=== PATIENT | male | born 1955 | race Caucasian/White ===

== ENCOUNTER → 2020-09-11 11:40 | Outpatient (BNVA) | payer MEDICARE, SELFPAY | PROVIDERS: PCP Internal Medicine; Referring Provider Internal Medicine; Visit Provider Nurse Practitioner Family | DX: I50.810 Right heart failure, unspecified (principal); I50.30 Unspecified diastolic (congestive) heart failure; I11.0 Hypertensive heart disease with heart failure; I63.9 Cerebral infarction, unspecified; E66.01 Morbid (severe) obesity due to excess calories; N17.9 Acute kidney failure, unspecified; G47.33 Obstructive sleep apnea (adult) (pediatric) | CPT/HCPCS: Q3014 ==

== ENCOUNTER 2020-11-17 23:42 | Inpatient (IN) | payer MEDICARE, SELFPAY ==
--- NOTE | ~2020-11-17 | CT_ITS ---
EXAMINATION: CT ABDOMEN AND PELVIS WITHOUT CONTRAST CLINICAL INFORMATION: Left flank pain. COMPARISON: None. TECHNIQUE: Contiguous axial thin section helical images of the abdomen and pelvis were performed without oral or IV contrast. The data set was reformatted in the coronal and sagittal planes and reviewed on an independent workstation. DLP: 1687 mGy-cm. FINDINGS: The visualized lung bases are clear. The visualized portions of the heart are unremarkable. The liver is of normal size and attenuation without focal lesions nor intrahepatic biliary ductal dilation. A normal gallbladder is identified. There is no wall thickening or discernible pericholecystic fluid. The spleen, pancreas, adrenal glands are unremarkable. Both kidneys are of normal size and attenuation without nephrolithiasis. There is left grade 1-2 hydroureteronephrosis secondary to a 5 mm obstructive proximal left ureteral calculus. There is left perinephric stranding. There is no abdominal free fluid. There is neither mesenteric nor retroperitoneal lymphadenopathy. There is mild sigmoid diverticulosis without active diverticulitis; otherwise, unremarkable unopacified loops of small and large bowel are identified. There is no pelvic free fluid. The urinary bladder is unremarkable. There is neither pelvic nor inguinal lymphadenopathy. Bone windows: Neither sclerotic nor lytic bone lesions are identified. CT/CT abdomen pelvis wo con IMPRESSION: Left grade 1-2 hydroureteronephrosis secondary to an obstructive 5 mm proximal ureteral calculus. Automated exposure control (Care Dose) Adjustment of the mA and/or kv according to patient size (this includes techniques or standardized protocols for targeted exams where dose is matched to indication / reason for exam; i.e. extremities or head).
--- NOTE | ~2020-11-17 | XR_ITS ---
EXAMINATION: XR CHEST CLINICAL INFORMATION: Cough COMPARISON: Chest x-ray 04/21/2020 TECHNIQUE: Frontal portable view of the chest was obtained. 0015 hours FINDINGS: Asymmetric elevation of right diaphragm compared to left unchanged since prior study. No acute airspace opacities. There is no pulmonary vascular congestion, no pleural effusion or pneumothorax. The cardiac and mediastinal contours are unchanged. XR/XR chest 1V IMPRESSION: No acute abnormality of the chest.
[2020-11-17 23:49] VITALS: BP 119/118; BP 185/93; PULSE 85; PULSE 96; RESP 16; TEMP 36.6; O2SAT 94; O2SAT 95; BMI 58.0
--- NOTE | 2020-11-17 23:51 | ECG_ITS ---
Test Reason : DIZZINESS Blood Pressure : / mmHG Vent. Rate : 083 BPM Atrial Rate : 083 BPM P-R Int : 264 ms QRS Dur : 114 ms QT Int : 402 ms P-R-T Axes : 024 024 047 degrees QTc Int : 472 ms Sinus rhythm with 1st degree A-V block with occasional Premature ventricular complexes Otherwise normal ECG When compared with ECG of 27-APR-2020 03:25, Questionable change in QRS axis Nonspecific T wave abnormality, improved in Inferior leads Referred By: Fifi Shaw Electronically Signed By:Giacomo Campbell
[2020-11-18] VITALS (13 sets, daily range): BP systolic 127–184; BP diastolic 69–106; PULSE 56–97; RESP 14–24; TEMP 36.4–37.1; O2SAT 93–98
[2020-11-18 00:18] LABS: Basophils Absolute Auto 0.1 X10*3/uL (0.0-0.2); Basophils Percent Auto 0.5 % (0-2); Eosinophils Absolute Auto 0.4 X10*3/uL (0.0-0.4); Eosinophils Percent Auto 2.8 % (0-4); Hematocrit 37.5 % (42-52); Hemoglobin 11.9 g/dl (14.0-18.0); Imm Gran Pct Auto 0.7 % (0.0-0.4); Lymphocytes Absolute Auto 2.3 X10*3/uL (1.2-4.9); Lymphocytes Percent Auto 14.9 % (20-40); Mean Corpuscular HGB Conc 31.7 g/dl (31.0-36.0); Mean Corpuscular Hemoglobin 29.8 pg (27.0-33.0); Mean Corpuscular Volume 93.8 fL (80-98); Mean Platelet Volume 9.7 fL (9.4-12.4); Monocytes Percent Auto 6.3 % (2-11); Neutrophils Absolute Auto 11.5 X10*3/uL (2.0-8.3); Neutrophils Percent Auto 74.8 % (45-73); Platelet Count 278 X10*3/uL (160-400); White Blood Count 15.3 X10*3/uL (4.8-10.8)
[2020-11-18 00:19] LABS: MANUAL DIFF FLAG NO
[2020-11-18 00:33] LABS: Acetone, serum QL Negative (Negative)
[2020-11-18 00:39] LABS: Ethanol < 10 mg/dL
[2020-11-18 00:43] LABS: Alanine Aminotransferase 14 U/L (0-40); Albumin Level 3.8 g/dL (3.5-5.0); Alkaline Phosphatase 108 U/L (39-117); Anion Gap 14 (12-20); Aspartate Amino Transferase 18 U/L (5-37); Bilirubin Total 0.7 mg/dL (0.0-1.0); Blood Urea Nitrogen 28 mg/dL (9-16); Calcium 9.7 mg/dL (8.4-10.2); Carbon Dioxide 31 mmol/L (22-29); Chloride 97 mmol/L (96-108); Estimated Glomerular Filt Rate 37; Glucose Random 95 mg/dL (60-115); Lipase 43 U/L (8-78); Magnesium 2.3 mg/dL (1.6-2.6); Potassium 3.8 mmol/L (3.3-5.1); Sodium 138 mmol/L (135-145); Total Protein 7.4 g/dL (6.5-8.0)
[2020-11-18 00:49] LABS: Glucose Urine UA NEG (NEG); Leukocyte Esterase Urine NEG (NEG); Nitrite Urine NEG (NEG); PH 5.5 (5.0-8.0); Specific Gravity - Urine 1.025 (1.005-1.025); Urine Blood 2+ (NEG); Urine Ketones NEG (NEG); Urine Protein TRACE MG/DL (NEG-TRACE)
[2020-11-18 00:50] LABS: Appearance Urine CLEAR; Color Urine YELLOW
[2020-11-18 00:56] LABS: Mucus Urine 1+ /LPF; Squamous Epithelial Cell Urine 1+ /LPF; UACC CULT NO; WBC Urine 0-2 /HPF (0-4)
--- NOTE | 2020-11-18 01:14 | ED_ITS ---
HPI - General Adult General Chief complaint: Dizziness Stated complaint: HIGH BP,DIZZY W/STANDING X'S 2 DAYS,FLANK PAIN Time Seen by Provider: 11/17/20 23:50 Source: patient Mode of arrival: EMS History of Present Illness HPI narrative: This is a 65-year-old male who is brought in via EMS and states that he called EMS primarily due to onset left flank pain that was not associated with fevers, chills, nausea, vomiting, diarrhea, or urinary pain/burning/frequency. Patient states that he also was concerned about an isolated episode of dizziness that occurred on Wednesday with position change, but states he has had no further symptoms since that time. In addition, patient states he has noticed that his blood pressures been elevated and says that he has been off of blood pressure medication since May. Patient currently denies any new cough with sputum production, denies orthopnea, and denies any bilateral lower extremity swelling or increase in shortness of breath from his baseline. Related Data Home Medications Medication Instructions Recorded Confirmed lidocaine 5 % topical patch 1 patch TOPICAL DAILY 07/08/20 11/13/20 lisinopril 40 mg tablet 40 mg PO DAILY 07/08/20 11/18/20 metformin 500 mg tablet 500 mg PO BID tab 11/13/20 11/18/20 Previous Rx's Medication Instructions Recorded allopurinol 300 mg tablet 300 mg PO BID #30 tab 07/08/20 atorvastatin 80 mg tablet 80 mg PO DAILY #90 tab 07/08/20 furosemide 40 mg tablet 40 mg PO DAILY 30 Days #30 tab 07/08/20 polyethylene glycol 3350 17 gram 17 g PO DAILY 30 Days #30 ea 07/08/20 oral powder packet duloxetine 20 mg capsule,delayed 20 mg PO BID #60 cap 10/14/20 release hydrocodone 5 mg-acetaminophen 300 1 tab PO BID PRN 7 Days #14 tab 11/08/20 mg tablet magnesium 200 mg tablet 400 mg PO DAILY #60 tab 11/11/20 Allergies Allergy/AdvReac Type Severity Reaction Status Date / Time No Known Allergies Allergy Verified 11/13/20 07:07 Review of Systems Review of Systems: Pertinent positives and negatives as stated in HPI 10 point review of systems is otherwise negative. PMFSH Past Medical History Source: nursing notes reviewed Medical History Acute gout of left foot FOREST (acute kidney injury) Cerebrovascular accident (CVA) Chronic fatigue Diastolic heart failure HTN (hypertension) Hyperlipidemia Leg pain Morbid obesity Newly diagnosed diabetes LALI (obstructive sleep apnea) Pulmonary arterial hypertension Right heart failure Surgical History Hx of shoulder surgery No pertinent past surgical history Family History Family History Father Blood clot in vein Mother Cancer Social History Social History Household Members: Significant Other Smoking Status: Never smoker Years Smoked: nonsmoker Use of substances other than those prescribed or required for medical reasons: No Advance Directives: No Advance Directives Information Provided: No Physical Exam Vital Signs: Vital Signs: Last Vital Signs Temp 97.9 F 11/18/20 00:00 Pulse 96 11/18/20 00:24 Resp 17 11/18/20 00:00 BP 166/86 H 11/18/20 00:24 Pulse Ox 95 11/18/20 00:00 Body Mass Index 58.0 VITAL SIGNS: Reviewed. GENERAL: Well developed, well nourished, in no acute distress. HEAD: Normocephalic/atraumatic EYES: PERRLA, EOMI NOSE: Nares patent bilateral OROPHARYNX: no oral lesions noted, posterior pharynx clear NECK: Supple, no adenopathy LUNGS: Normal breath sounds. No adventitious sounds or accessory muscle use. SpO2<95> on 2 L of nasal cannula CARDIOVASCULAR: Regular rate and rhythm without noted murmurs, no JVD or lower extremity edema. ABDOMEN: Obese, Soft, non-tender, non-distended with bowel sounds. MUSCULOSKELETAL: No tenderness, deformities, or effusions noted on gross inspection. SKIN: Inspection of the skin reveals no rashes NEUROLOGIC: Alert and oriented x 4. Strength and sensation to light touch were grossly intact x 4, no facial asymmetry, no dysarthria, no pronator drift. Course Course Course Narrative: This is a 65-year-old male with history and clinical presentation consistent with miscommunication regarding blood pressure medication and on review notes and discharge summaries it is unclear what the decision making process has been between May of last year and present. On review of Nephrology and an entry by his PCP it is documented that patient is supposed to be on 40 mg of lisinopril. There is no clinical or historical evidence to suggest CHF exacerbation, but suspect the possibility of renal colic which was further corroborated by urinalysis showing hematuria. Review of all investigations shows a leukocytosis, hematuria, as well as CT findings demonstrating a 5 mm proximal obstructive stone on the left side with 1-2 grade hydronephrosis. Case was discussed with Urology who recommends admission and NPO. I discussed the case with inpatient hospitalist team who is agreeable for admission. Medical Decision Making Lab Data Result diagrams: 11/18/20 00:13 11/18/20 00:13 Labs: Lab Results 11/18/20 11/18/20 11/18/20 Range/Units 00:13 00:13 00:13 WBC 15.3 H (4.8-10.8) X10*3/uL RBC 4.00 L (4.60-5.80) X10*6/uL Hgb 11.9 L (14.0-18.0) g/dl Hct 37.5 L (42-52) % MCV 93.8 (80-98) fL MCH 29.8 (27.0-33.0) pg MCHC 31.7 (31.0-36.0) g/dl RDW 14.0 (11.0-16.0) % Plt Count 278 (160-400) X10*3/uL MPV 9.7 (9.4-12.4) fL Immature Gran % (Auto) 0.7 H (0.0-0.4) % Neut % (Auto) 74.8 H (45-73) % Lymph % (Auto) 14.9 L (20-40) % [place] % (Auto) 6.3 (2-11) % Eos % (Auto) 2.8 (0-4) % Baso % (Auto) 0.5 (0-2) % Lymph # (Auto) 2.3 (1.2-4.9) X10*3/uL [place] # (Auto) 1.0 (0.1-1.2) X10*3/uL Eos # (Auto) 0.4 (0.0-0.4) X10*3/uL Baso # (Auto) 0.1 (0.0-0.2) X10*3/uL Abs Immat Gran (auto) 0.10 H (0.00-0.03) X10*3/uL Absolute Neuts (auto) 11.5 H (2.0-8.3) X10*3/uL Absolute Nucleated RBC 0.000 (0.0-0.012) X10*3/uL Nucleated RBC % (auto) 0.0 (0.0-0.2) /100WBC Sodium 138 (135-145) mmol/L Potassium 3.8 (3.3-5.1) mmol/L Chloride 97 (96-108) mmol/L Carbon Dioxide 31 H (22-29) mmol/L Anion Gap 14 (12-20) BUN 28 H (9-16) mg/dL Creatinine 1.86 H (0.5-1.4) mg/dL Estim Creat Clear Calc 59.0 Estimated GFR 37 Random Glucose 95 (60-115) mg/dL Calcium 9.7 (8.4-10.2) mg/dL Magnesium 2.3 (1.6-2.6) mg/dL Total Bilirubin 0.7 (0.0-1.0) mg/dL AST 18 (5-37) U/L ALT 14 (0-40) U/L Alkaline Phosphatase 108 (39-117) U/L Total Protein 7.4 (6.5-8.0) g/dL Albumin 3.8 (3.5-5.0) g/dL Lipase 43 (8-78) U/L Urine Color Urine Appearance Urine pH (5.0-8.0) Ur Specific [place] (1.005-1.025) Urine Protein (NEG-TRACE) MG/DL Urine Glucose (UA) (NEG) MG/DL Urine Ketones (NEG) MG/DL Urine Blood (NEG) Urine Nitrite (NEG) Ur Leukocyte Esterase (NEG) Urine RBC (0) /HPF Urine WBC (0-4) /HPF Ur Squamous Epith Cells /LPF Urine Bacteria /LPF Urine Mucus /LPF Urine Opiates Screen (Not Detect) Ur Barbiturates Screen (Not Detect) Ur Phencyclidine Scrn (Not Detect) Ur Amphetamines Screen (Not Detect) U Benzodiazepines Scrn (Not Detect) Urine Cocaine Screen (Not Detect) U Marijuana (THC) Screen (Not Detect) Ethyl Alcohol mg/dL Acetone, Qual Negative (Negative) COVID-19 (DUNIA) (Negative) COVID-19 Clin Com 11/18/20 11/18/20 11/18/20 Range/Units 00:13 00:34 00:34 WBC (4.8-10.8) X10*3/uL RBC (4.60-5.80) X10*6/uL Hgb (14.0-18.0) g/dl Hct (42-52) % MCV (80-98) fL MCH (27.0-33.0) pg MCHC (31.0-36.0) g/dl RDW (11.0-16.0) % Plt Count (160-400) X10*3/uL MPV (9.4-12.4) fL Immature Gran % (Auto) (0.0-0.4) % Neut % (Auto) (45-73) % Lymph % (Auto) (20-40) % [place] % (Auto) (2-11) % Eos % (Auto) (0-4) % Baso % (Auto) (0-2) % Lymph # (Auto) (1.2-4.9) X10*3/uL [place] # (Auto) (0.1-1.2) X10*3/uL Eos # (Auto) (0.0-0.4) X10*3/uL Baso # (Auto) (0.0-0.2) X10*3/uL Abs Immat Gran (auto) (0.00-0.03) X10*3/uL Absolute Neuts (auto) (2.0-8.3) X10*3/uL Absolute Nucleated RBC (0.0-0.012) X10*3/uL Nucleated RBC % (auto) (0.0-0.2) /100WBC Sodium (135-145) mmol/L Potassium (3.3-5.1) mmol/L Chloride (96-108) mmol/L Carbon Dioxide (22-29) mmol/L Anion Gap (12-20) BUN (9-16) mg/dL Creatinine (0.5-1.4) mg/dL Estim Creat Clear Calc Estimated GFR Random Glucose (60-115) mg/dL Calcium (8.4-10.2) mg/dL Magnesium (1.6-2.6) mg/dL Total Bilirubin (0.0-1.0) mg/dL AST (5-37) U/L ALT (0-40) U/L Alkaline Phosphatase (39-117) U/L Total Protein (6.5-8.0) g/dL Albumin (3.5-5.0) g/dL Lipase (8-78) U/L Urine Color YELLOW Urine Appearance CLEAR Urine pH 5.5 (5.0-8.0) Ur Specific [place] 1.025 (1.005-1.025) Urine Protein TRACE (NEG-TRACE) MG/DL Urine Glucose (UA) NEG (NEG) MG/DL Urine Ketones NEG (NEG) MG/DL Urine Blood 2+ H (NEG) Urine Nitrite NEG (NEG) Ur Leukocyte Esterase NEG (NEG) Urine RBC 10-14 H (0) /HPF Urine WBC 0-2 (0-4) /HPF Ur Squamous Epith Cells 1+ /LPF Urine Bacteria NONE /LPF Urine Mucus 1+ /LPF Urine Opiates Screen Not Detected (Not Detect) Ur Barbiturates Screen Not Detected (Not Detect) Ur Phencyclidine Scrn Not Detected (Not Detect) Ur Amphetamines Screen Not Detected (Not Detect) U Benzodiazepines Scrn Not Detected (Not Detect) Urine Cocaine Screen Not Detected (Not Detect) U Marijuana (THC) Screen Not Detected (Not Detect) Ethyl Alcohol < 10 mg/dL Acetone, Qual (Negative) COVID-19 (DUNIA) (Negative) COVID-19 Clin Com 11/18/20 Range/Units 03:46 WBC (4.8-10.8) X10*3/uL RBC (4.60-5.80) X10*6/uL Hgb (14.0-18.0) g/dl Hct (42-52) % MCV (80-98) fL MCH (27.0-33.0) pg MCHC (31.0-36.0) g/dl RDW (11.0-16.0) % Plt Count (160-400) X10*3/uL MPV (9.4-12.4) fL Immature Gran % (Auto) (0.0-0.4) % Neut % (Auto) (45-73) % Lymph % (Auto) (20-40) % [place] % (Auto) (2-11) % Eos % (Auto) (0-4) % Baso % (Auto) (0-2) % Lymph # (Auto) (1.2-4.9) X10*3/uL [place] # (Auto) (0.1-1.2) X10*3/uL Eos # (Auto) (0.0-0.4) X10*3/uL Baso # (Auto) (0.0-0.2) X10*3/uL Abs Immat Gran (auto) (0.00-0.03) X10*3/uL Absolute Neuts (auto) (2.0-8.3) X10*3/uL Absolute Nucleated RBC (0.0-0.012) X10*3/uL Nucleated RBC % (auto) (0.0-0.2) /100WBC Sodium (135-145) mmol/L Potassium (3.3-5.1) mmol/L Chloride (96-108) mmol/L Carbon Dioxide (22-29) mmol/L Anion Gap (12-20) BUN (9-16) mg/dL Creatinine (0.5-1.4) mg/dL Estim Creat Clear Calc Estimated GFR Random Glucose (60-115) mg/dL Calcium (8.4-10.2) mg/dL Magnesium (1.6-2.6) mg/dL Total Bilirubin (0.0-1.0) mg/dL AST (5-37) U/L ALT (0-40) U/L Alkaline Phosphatase (39-117) U/L Total Protein (6.5-8.0) g/dL Albumin (3.5-5.0) g/dL Lipase (8-78) U/L Urine Color Urine Appearance Urine pH (5.0-8.0) Ur Specific [place] (1.005-1.025) Urine Protein (NEG-TRACE) MG/DL Urine Glucose (UA) (NEG) MG/DL Urine Ketones (NEG) MG/DL Urine Blood (NEG) Urine Nitrite (NEG) Ur Leukocyte Esterase (NEG) Urine RBC (0) /HPF Urine WBC (0-4) /HPF Ur Squamous Epith Cells /LPF Urine Bacteria /LPF Urine Mucus /LPF Urine Opiates Screen (Not Detect) Ur Barbiturates Screen (Not Detect) Ur Phencyclidine Scrn (Not Detect) Ur Amphetamines Screen (Not Detect) U Benzodiazepines Scrn (Not Detect) Urine Cocaine Screen (Not Detect) U Marijuana (THC) Screen (Not Detect) Ethyl Alcohol mg/dL Acetone, Qual (Negative) COVID-19 (DUNIA) Negative (Negative) COVID-19 Clin Com See Note ECG Data Attestation: I personally reviewed and interpreted this ECG as follows: Prior ECG tracings: available for review (04/27/2020 no acute changes on comparison) Interpretation: Sinus rhythm, first-degree AV block (chronic), no evidence of ac [place]land ischemia, occasional PVCs, CO-to 64, QRS-114, QTC-472 Discharge Plan Discharge Clinical Impression: Obstructive uropathy Patient Disposition: Admitted as Observation
[2020-11-18 01:16] LABS: Amphetamine Screen Urine Not Detected (Not Detect); Barbiturates, Urine Not Detected (Not Detect); Benzodiazepines Screen Urine Not Detected (Not Detect); Cannabinoid Screen Urine Not Detected (Not Detect); Cocaine Screen Urine Not Detected (Not Detect); Opiate Screen Urine Not Detected (Not Detect); Phencyclidine Screen Urine Not Detected (Not Detect)
[2020-11-18] MEDS: cefTRIAXone sodium 1 GM in 0.9 % Sodium Chloride 50 ML IV (03:50)
[2020-11-18 04:08] LABS: COVID-19 Test Negative (Negative)
[2020-11-18 04:12] LABS: Lactic Acid 2.3 mmol/L (0.5-2.0)
--- NOTE | 2020-11-18 05:34 | P.HPHOSP_ITS ---
History of Present Illness Date of Service: 11/18/20 Chief Complaint: Abdominal pain This is a 65-year-old male with past medical history of gout, hypertension, HLD, diabetes, LALI, pulmonary arterial hypertension, right heart failure who presents to the hospital with complaints of left flank pain that started 2 days ago. Pain is 8/10, sharp, radiating to the grain. Patient denies any fever or chills, no nausea vomiting diarrhea constipation. No urinary symptoms including no frequency urgency or dysuria. He has no retention. He has many lower extremity edema. No headache or change in vision, no chest pain shortness of breath. Patient reports that he also has been having high blood pressure readings be cause he has not been compliant with his blood pressure medications. On arrival to the ED hemodynamically stable with a blood pressure of 185/93 otherwise normal vitals Labs are significant for WBC count of 15.3, hemoglobin of 11.9, sodium of 138, BUN of 28, creatinine of 1.86 (most recent creatinine have been in the 2s), lactic acid of 2.3, UA negative for leukocyte esterase or nitrates, COVID-[address] reveals left grade 1-2 hydroureteronephrosis secondary to an obstructing 5 mm proximal ureteral calculus Patient will be admitted with a consult to Urology Review of Systems Review of Systems: Yes all other systems are reviewed and are negative [facility] Medical History Acute gout of left foot FOREST (acute kidney injury) Cerebrovascular accident (CVA) Chronic fatigue Diastolic heart failure HTN (hypertension) Hyperlipidemia Leg pain Morbid obesity Newly diagnosed diabetes LALI (obstructive sleep apnea) Pulmonary arterial hypertension Right heart failure Family History Father Blood clot in vein Mother Cancer Surgical History Hx of shoulder surgery No pertinent past surgical history Social History Household Members: Significant Other Smoking Status: Never smoker Years Smoked: nonsmoker Use of substances other than those prescribed or required for medical reasons: No Advance Directives: No Advance Directives Information Provided: No Meds Allergies Allergy/AdvReac Type Severity Reaction Status Date / Time No Known Allergies Allergy Verified 11/13/20 07:07 Home Medications Medication Instructions Recorded Confirmed Last Taken Type lidocaine 5 % topical patch 1 patch TOPICAL DAILY 07/08/20 11/13/20 Unknown History lisinopril 40 mg tablet 40 mg PO DAILY 07/08/20 11/18/20 Unknown History metformin 500 mg tablet 500 mg PO BID tab 11/13/20 11/18/20 Unknown History Physical Exam Vital Signs and Narrative: Vital Signs: Last Vital Signs Temp 97.9 F 11/18/20 00:00 Pulse 73 11/18/20 04:00 Resp 19 11/18/20 04:00 BP 132/73 11/18/20 04:00 Pulse Ox 95 11/18/20 04:00 Body Mass Index 58.0 Const: General: cooperative and no acute distress Orientation/consciousness: patient oriented x3 Eyes: General: appearance normal, both eyes and all related structures Resp: Effort & Inspection: normal respiratory effort and able to speak in complete sentences Cardio: Rate: regular rate Rhythm: regular rhythm GI: Palpation (GI): Soft to palpation Auscultation: normal bowel sounds Skin: General skin exam: no rashes or lesions noted Neuro: General: patient oriented x3 Cognition (Neuro): normal cognition Extrem: General: Yes normal to inspection and Yes no pedal edema Results Labs CBC and Chem 7: 11/18/20 00:13 11/18/20 00:13 Labs: Laboratory Results - last 24 hr 11/18/20 11/18/20 11/18/20 00:13 00:13 00:13 MCV 93.8 MCH 29.8 MCHC 31.7 RDW 14.0 Plt Count 278 MPV 9.7 Immature Gran % (Auto) 0.7 H Neut % (Auto) 74.8 H Lymph % (Auto) 14.9 L [place] % (Auto) 6.3 Eos % (Auto) 2.8 Baso % (Auto) 0.5 Lymph # (Auto) 2.3 [place] # (Auto) 1.0 Eos # (Auto) 0.4 Baso # (Auto) 0.1 Abs Immat Gran (auto) 0.10 H Absolute Neuts (auto) 11.5 H Absolute Nucleated RBC 0.000 Nucleated RBC % (auto) 0.0 Anion Gap 14 Estim Creat Clear Calc 59.0 Estimated GFR 37 Random Glucose 95 Lactic Acid Calcium 9.7 Magnesium 2.3 Total Bilirubin 0.7 AST 18 ALT 14 Alkaline Phosphatase 108 Total Protein 7.4 Albumin 3.8 Lipase 43 Urine Color Urine Appearance Urine pH Ur Specific [place] Urine Protein Urine Glucose (UA) Urine Ketones Urine Blood Urine Nitrite Ur Leukocyte Esterase Urine RBC Urine WBC Ur Squamous Epith Cells Urine Bacteria Urine Mucus Urine Opiates Screen Ur Barbiturates Screen Ur Phencyclidine Scrn Ur Amphetamines Screen U Benzodiazepines Scrn Urine Cocaine Screen U Marijuana (THC) Screen Ethyl Alcohol Acetone, Qual Negative COVID-19 (DUNIA) COVID-19 [place] 11/18/20 11/18/20 11/18/20 00:13 00:34 00:34 MCV MCH MCHC RDW Plt Count MPV Immature Gran % (Auto) Neut % (Auto) Lymph % (Auto) [place] % (Auto) Eos % (Auto) Baso % (Auto) Lymph # (Auto) [place] # (Auto) Eos # (Auto) Baso # (Auto) Abs Immat Gran (auto) Absolute Neuts (auto) Absolute Nucleated RBC Nucleated RBC % (auto) Anion Gap Estim Creat Clear Calc Estimated GFR Random Glucose Lactic Acid Calcium Magnesium Total Bilirubin AST ALT Alkaline Phosphatase Total Protein Albumin Lipase Urine Color YELLOW Urine Appearance CLEAR Urine pH 5.5 Ur Specific [place] 1.025 Urine Protein TRACE Urine Glucose (UA) NEG Urine Ketones NEG Urine Blood 2+ H Urine Nitrite NEG Ur Leukocyte Esterase NEG Urine RBC 10-14 H Urine WBC 0-2 Ur Squamous Epith Cells 1+ Urine Bacteria NONE Urine Mucus 1+ Urine Opiates Screen Not Detected Ur Barbiturates Screen Not Detected Ur Phencyclidine Scrn Not Detected Ur Amphetamines Screen Not Detected U Benzodiazepines Scrn Not Detected Urine Cocaine Screen Not Detected U Marijuana (THC) Screen Not Detected Ethyl Alcohol < 10 Acetone, Qual COVID-19 (DUNIA) COVID-19 [place] 11/18/20 11/18/20 03:46 03:46 MCV MCH MCHC RDW Plt Count MPV Immature Gran % (Auto) Neut % (Auto) Lymph % (Auto) [place] % (Auto) Eos % (Auto) Baso % (Auto) Lymph # (Auto) [place] # (Auto) Eos # (Auto) Baso # (Auto) Abs Immat Gran (auto) Absolute Neuts (auto) Absolute Nucleated RBC Nucleated RBC % (auto) Anion Gap Estim Creat Clear Calc Estimated GFR Random Glucose Lactic Acid 2.3 H* Calcium Magnesium Total Bilirubin AST ALT Alkaline Phosphatase Total Protein Albumin Lipase Urine Color Urine Appearance Urine pH Ur Specific [place] Urine Protein Urine Glucose (UA) Urine Ketones Urine Blood Urine Nitrite Ur Leukocyte Esterase Urine RBC Urine WBC Ur Squamous Epith Cells Urine Bacteria Urine Mucus Urine Opiates Screen Ur Barbiturates Screen Ur Phencyclidine Scrn Ur Amphetamines Screen U Benzodiazepines Scrn Urine Cocaine Screen U Marijuana (THC) Screen Ethyl Alcohol Acetone, Qual COVID-19 (DUNIA) Negative COVID-19 Clin Com See Note Imaging Radiologist's Impressions: Impressions Chest X-Ray 11/18/20 00:01 IMPRESSION: No acute abnormality of the chest. Abdomen/Pelvis CT 11/18/20 01:51 IMPRESSION: Left grade 1-2 hydroureteronephrosis secondary to an obstructive 5 mm proximal ureteral calculus. Automated exposure control (Care Dose) Adjustment of the mA and/or kv according to patient size (this includes techniques or standardized protocols for targeted exams where dose is matched to indication / reason for exam; i.e. extremities or head). Assessment and Plan (1) Obstructive uropathy: Status: Acute (2) Ureter, calculus: Status: Acute (3) Leukocytosis: Status: Acute This is a 65-year-old male with past medical history of hypertension, diabetes, who presents to the hospital complaints of left flank pain found to have obstructing ureter calculi # ureteral calculus - CT findings as above - UA -ve for acute infection although pt has leukocytosis Plan: - Start IV fluids - Urology consulted for management - Given leukocytosis will start on ceftriaxone, can be started post surgery and stone removal # Leukocytosis - possibly 2/2 to above - will start on iv abx - follow cbc # FOREST? - Pt's last Cr in april was <1 but since then has been as high as 4. - WIll start IV fluids for above - Follow BMP # DM - Hold metformin - start LDSSI - Diabetic diet # HF - No acute exacerbation - continue lasix - Given iv fluids for calculi, monitor respiratory/volume status # HNT - stable - resume home medication DVT ppx: SCDs in anticipation for urological intervention
[2020-11-18 05:51] LABS: Reflex Lactate? Lactic Acid Added
[2020-11-18] MEDS: Lactated Ringers 1,000 ML 100 ML IVCONT (07:56)
[2020-11-18 09:07] LABS: ~Lactic Acid-LAB USE ONLY 1.9 mmol/L (0.5-2.0)
--- NOTE | 2020-11-18 10:03 | PC.NURSE ---
Pt states that he wears o2 at home only at night. Pt was removed from o2 to void. When he returned to the bed he had audible wheexing and sats were 86% on room air. He was placed back on 2 liters and sats returned to 98% with rest and supplemental o2. However, when the patient is resting in bed and on room air he is able to maintain a sat of 94%.
[2020-11-18] MEDS: Atorvastatin Calcium 80 MG TABLET PO (10:15)
[2020-11-18] MEDS: Furosemide 40 MG TABLET PO (10:15)
[2020-11-18] MEDS: DULoxetine HCl 20 MG CAPSULE.DR PO ×2 (10:22→21:24)
[2020-11-18 12:01] LABS: Glucose, Whole Blood 126 mg/dL (60-115)
--- NOTE | 2020-11-18 13:31 | PC.NURSE ---
Pt updated on plan for to come see him later today. Food and fluids offered but pt declined stating that he feels anxious and his stomach is a little upset because of it. Pt was reassured on plan and is calm and cooperative at this time. TV turned on for distraction.
--- NOTE | 2020-11-18 15:51 | PC.NURSE ---
Addendum entered by Monica Núñez RN 11/18/20 16:07: notified. Pt agreeable to stay long enough to at least speak with hospitalist regarding his options for possible f/u outpatient. notified and will come see pt to speak with him regarding plan. Original Note: Pt oob to use bathroom. He is beginning to become agitated as he is awaiting urology consultation and further plan.
[2020-11-18] MEDS: 0.9 % Sodium Chloride Flush 3 ML SYRINGE IVFLUSH ×2 (15:53→21:26)
[2020-11-18 18:21] LABS: Glucose, Whole Blood 105 mg/dL (60-115)
[2020-11-18 20:37] LABS: Glucose, Whole Blood 119 mg/dL (60-115)
[2020-11-19] VITALS: BP 170/87; PULSE 77; RESP 18; TEMP 36.9; O2SAT 95
[2020-11-19] MEDS: cefTRIAXone sodium 1 GM in 0.9 % Sodium Chloride 50 ML IV (03:55)
[2020-11-19 04:00] VITALS: BP 155/81; PULSE 77; RESP 18; TEMP 36.8; O2SAT 96
[2020-11-19 06:00] VITALS: BMI 55.3
[2020-11-19 06:04] LABS: MANUAL DIFF FLAG NO
[2020-11-19 06:11] LABS: Basophils Absolute Auto 0.1 X10*3/uL (0.0-0.2); Basophils Percent Auto 0.5 % (0-2); Eosinophils Absolute Auto 0.4 X10*3/uL (0.0-0.4); Eosinophils Percent Auto 2.7 % (0-4); Hematocrit 34.1 % (42-52); Hemoglobin 10.8 g/dl (14.0-18.0); Imm Gran Abs Auto 0.08 X10*3/uL (0.00-0.03); Imm Gran Pct Auto 0.6 % (0.0-0.4); Lymphocytes Absolute Auto 1.7 X10*3/uL (1.2-4.9); Lymphocytes Percent Auto 11.9 % (20-40); Mean Corpuscular HGB Conc 31.7 g/dl (31.0-36.0); Mean Corpuscular Hemoglobin 29.4 pg (27.0-33.0); Mean Corpuscular Volume 92.9 fL (80-98); Mean Platelet Volume 9.7 fL (9.4-12.4); Monocytes Absolute Auto 0.9 X10*3/uL (0.1-1.2); Monocytes Percent Auto 6.6 % (2-11); Neutrophils Absolute Auto 11.1 X10*3/uL (2.0-8.3); Neutrophils Percent Auto 77.7 % (45-73); Platelet Count 258 X10*3/uL (160-400); Red Blood Count 3.67 X10*6/uL (4.60-5.80); Red Cell Distribution Width 13.9 % (11.0-16.0); White Blood Count 14.3 X10*3/uL (4.8-10.8)
[2020-11-19 06:36] LABS: Anion Gap 12 (12-20); Blood Urea Nitrogen 24 mg/dL (9-16); Calcium 8.4 mg/dL (8.4-10.2); Carbon Dioxide 33 mmol/L (22-29); Chloride 100 mmol/L (96-108); Creatinine Clr Calc Pharmacy 56.7; Estimated Glomerular Filt Rate 36; Glucose Random 108 mg/dL (60-115); Potassium 3.9 mmol/L (3.3-5.1); Sodium 141 mmol/L (135-145)
[2020-11-19 07:19] VITALS: BP 184/90; PULSE 92; RESP 20; TEMP 36.3; O2SAT 94
[2020-11-19] MEDS: 0.9 % Sodium Chloride Flush 3 ML SYRINGE IVFLUSH (07:24)
[2020-11-19] MEDS: DULoxetine HCl 20 MG CAPSULE.DR PO (07:24)
[2020-11-19] MEDS: Atorvastatin Calcium 80 MG TABLET PO (07:24)
[2020-11-19 08:03] LABS: Glucose, Whole Blood 87 mg/dL (60-115)
[2020-11-19 08:13] LABS: Glucose, Whole Blood 119 mg/dL (60-115)
--- NOTE | 2020-11-19 08:49 | PM.UROCN ---
History of Present Illness Consult details Consult date: 11/18/20 Narrative: 65-year-old male First-time stone former 5 mm proximal left ureteric stone Pain resolved Can would DC home and follow-up in 2 weeks Medical expulsion therapy with tamsulosin and 5 days of prednisone Prescription provided He knows to call if has an issue in the meantime Review of Systems Review of Systems: Yes all other systems are reviewed and are negative [facility] Past Medical History Medical History Acute gout of left foot FOREST (acute kidney injury) Cerebrovascular accident (CVA) Chronic fatigue Diastolic heart failure HTN (hypertension) Hyperlipidemia Leg pain Morbid obesity Newly diagnosed diabetes LALI (obstructive sleep apnea) Pulmonary arterial hypertension Right heart failure Family History Family History Father Blood clot in vein Mother Cancer Surgical History Surgical History Hx of shoulder surgery No pertinent past surgical history Social History Social History Household Members: Spouse Housing: Apartment Do you presently have visiting nurse or other home services: No Smoking Status: Never smoker Years Smoked: nonsmoker Use of substances other than those prescribed or required for medical reasons: No Have you been hit, kicked, punched, or otherwise hurt by someone within the past year? If so, by whom?: No Do you feel safe in your current relationship?: Yes Is there a partner from a previous relationship who is making you feel unsafe now?: No Are you made to feel afraid or neglected: No Advance Directives: No Advance Directives Information Provided: No Do you have thoughts of harming others: None Do you have a plan to hurt others: No Plan Recently lost weight without trying: No Meds Allergies Allergy/AdvReac Type Severity Reaction Status Date / Time No Known Allergies Allergy Verified 11/13/20 07:07 Active Medications: Current Medications Generic Name Dose Route Start Last Admin Trade Name Freq PRN Reason Stop Dose Admin Acetaminophen 650 mg 11/18/20 06:29 Acetaminophen 325 Mg Tablet PO Q6H PRN Pain, Mild (Pain Scale 1-3) Al Hydroxide/Mg Hydroxide 30 ml 11/18/20 06:29 Magnesium Hydrox/Alum Hydrox 30 Ml Oral.Susp PO Q4H PRN Heartburn/Nausea Atorvastatin Calcium 80 mg 11/18/20 09:00 11/19/20 07:24 Atorvastatin Calcium 80 Mg Tablet PO 80 mg DAILY [facility] Administration Duloxetine HCl 20 mg 11/18/20 09:00 11/19/20 07:24 Duloxetine Hcl 20 Mg Capsule.Dr PO 20 mg BID CARLOS Administration Furosemide 40 mg 11/18/20 09:00 11/18/20 10:15 Furosemide 40 Mg Tablet PO 40 mg DAILY [facility] Administration Protocol Ceftriaxone Sodium 1 gm/ 50 mls @ 100 mls/hr 11/19/20 04:00 11/19/20 04:24 Sodium Chloride IV Infused Q24H [facility] Infusion Insulin Human Lispro 0 unit 11/18/20 07:30 11/19/20 07:28 Insulin Lispro 100 Unit/Ml 3 Ml Vial SUBCUT Not Given QIDACHS [facility] Lisinopril 40 mg 11/18/20 09:00 11/19/20 07:23 Lisinopril 40 Mg Tablet PO 40 mg DAILY [facility] Administration Protocol Morphine Sulfate 4 mg 11/18/20 06:29 Morphine Sulfate 4 Mg/Ml Cartridge IVPUSH Q4H PRN Pain, Severe (Pain Scale 7-10) Ondansetron HCl 4 mg 11/18/20 06:29 Ondansetron Hcl 4 Mg/2 Ml Vial IVPUSH Q8H PRN Nausea and Vomiting Sodium Chloride 3 ml 11/18/20 08:00 11/19/20 07:24 0.9 % Sodium Chloride Flush 3 Ml Syringe IVFLUSH 3 ml QSHIFT [facility] Administration Home Medications Medication Instructions Recorded Confirmed Last Taken Type lidocaine 5 % topical patch 1 patch TOPICAL DAILY 07/08/20 11/13/20 Unknown History lisinopril 40 mg tablet 40 mg PO DAILY 07/08/20 11/18/20 Unknown History metformin 500 mg tablet 500 mg PO BID tab 11/13/20 11/18/20 Unknown History Physical Exam Vital Signs: Vital Signs: Last Vital Signs Temp 97.4 F 11/19/20 07:19 Pulse 92 11/19/20 07:19 Resp 20 11/19/20 07:19 BP 184/90 H 11/19/20 07:19 Pulse Ox 94 11/19/20 07:19 Body Mass Index 55.3 Const: General: cooperative, healthy appearing, comfortable and no acute distress Nutritional Appearance: average body habitus Orientation/consciousness: oriented to person, oriented to place and oriented to time Eyes: General: appearance normal, both eyes and all related structures Chest: Chest palpation & inspection: normal inspection of the chest Resp: Effort & Inspection: normal respiratory effort Cardio: Rate: regular rate GI: Inspection: Yes normal to inspection Skin: Hair: normal Neuro: General: oriented to person, oriented to place and oriented to time Extrem: General: Yes normal to inspection Results Labs Result diagrams: 11/19/20 05:47 11/19/20 05:47 Labs: Abnormal lab results 11/18/20 11/18/20 11/19/20 Range/Units 11:54 20:29 05:47 WBC 14.3 H (4.8-10.8) X10*3/uL RBC 3.67 L (4.60-5.80) X10*6/uL Hgb 10.8 L (14.0-18.0) g/dl Hct 34.1 L (42-52) % Immature Gran % (Auto) 0.6 H (0.0-0.4) % Neut % (Auto) 77.7 H (45-73) % Lymph % (Auto) 11.9 L (20-40) % Abs Immat Gran (auto) 0.08 H (0.00-0.03) X10*3/uL Absolute Neuts (auto) 11.1 H (2.0-8.3) X10*3/uL Carbon Dioxide (22-29) mmol/L BUN (9-16) mg/dL Creatinine (0.5-1.4) mg/dL POC Glucose 126 H 119 H (60-115) mg/dL 11/19/20 11/19/20 Range/Units 05:47 07:22 WBC (4.8-10.8) X10*3/uL RBC (4.60-5.80) X10*6/uL Hgb (14.0-18.0) g/dl Hct (42-52) % Immature Gran % (Auto) (0.0-0.4) % Neut % (Auto) (45-73) % Lymph % (Auto) (20-40) % Abs Immat Gran (auto) (0.00-0.03) X10*3/uL Absolute Neuts (auto) (2.0-8.3) X10*3/uL Carbon Dioxide 33 H (22-29) mmol/L BUN 24 H (9-16) mg/dL Creatinine 1.88 H (0.5-1.4) mg/dL POC Glucose 119 H (60-115) mg/dL Short CBC 11/19/20 Range/Units 05:47 WBC 14.3 H (4.8-10.8) X10*3/uL Hgb 10.8 L (14.0-18.0) g/dl Hct 34.1 L (42-52) % Plt Count 258 (160-400) X10*3/uL BMP 11/19/20 11/19/20 05:47 05:47 Sodium 141 Cancelled Potassium 3.9 Cancelled Chloride 100 Cancelled Carbon Dioxide 33 H Cancelled BUN 24 H Cancelled Creatinine 1.88 H Cancelled Calcium 8.4 D Cancelled Urine 11/18/20 Range/Units 00:34 Urine Color YELLOW Urine Appearance CLEAR Urine pH 5.5 (5.0-8.0) Ur Specific [place] 1.025 (1.005-1.025) Urine Protein TRACE (NEG-TRACE) MG/DL Urine Glucose (UA) NEG (NEG) MG/DL All other labs normal. Assessment and Plan (1) Ureter, calculus: Status: Acute Prednisone 5 days Tamsulosin for 2 weeks Follow-up in 2 weeks for reassessment
--- NOTE | 2020-11-19 09:52 | MHC.CM.PN ---
IMM 11/19/20, EMR REVIEWED, PT INPT W/OBSTRUCTING STONE, PT DENIES PAIN SINCE EARLY AM OF 11/18/20 AND REPORTS HE IS OK WITH D/C PLAN HOME W/FOLLOW-UP IN 2WKS IN OFFICE, CM MET WITH PT WHO IS ALERT AND ORIENTED, PT REPORTS HE LIVES WITH AND DAUGHTER OR GRANDDAUGHTER IS ALWAYS THERE WHILE IS AT WORK IF HE NEEDS. 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 PT HAS A HCP ON FILE FROM MAY 2020, PT ABLE TO VERIFY PCP AND PHARMACY. DISCHARGE PLAN: HOME SELF-CARE, FAMILY TO TRANSPORT HCP: CLAYTON RUSS () [phone], (H) PCP: ALISA STALEY
--- NOTE | 2020-11-19 11:20 | P.DS_ITS ---
DS: Providers Provider Date of Service: 11/19/20 Date of admission: 11/18/20 05:16 Primary care physician: Nonstaff Physician Consults: 11/18/20 06:29 Consult to Urology Routine Consulting Provider: Perico Elaine III Reason for consultation: Obstructing stone Has provider been notified: No DS: Diagnosis Discharge Diagnosis (1) Ureter, calculus: Status: Acute (2) Leukocytosis: Status: Acute (3) Obstructive uropathy: Status: Acute DS: Medications Discharge Medications Home Medications: Home Medications Medication Instructions Recorded Confirmed lidocaine 5 % topical patch 1 patch TOPICAL DAILY 07/08/20 11/13/20 lisinopril 40 mg tablet 40 mg PO DAILY 07/08/20 11/18/20 metformin 500 mg tablet 500 mg PO BID tab 11/13/20 11/18/20 Previous Rx's Medication Instructions Recorded allopurinol 300 mg tablet 300 mg PO BID #30 tab 07/08/20 atorvastatin 80 mg tablet 80 mg PO DAILY #90 tab 07/08/20 furosemide 40 mg tablet 40 mg PO DAILY 30 Days #30 tab 07/08/20 polyethylene glycol 3350 17 gram 17 g PO DAILY 30 Days #30 ea 07/08/20 oral powder packet duloxetine 20 mg capsule,delayed 20 mg PO BID #60 cap 10/14/20 release hydrocodone 5 mg-acetaminophen 300 1 tab PO BID PRN 7 Days #14 tab 11/08/20 mg tablet magnesium 200 mg tablet 400 mg PO DAILY #60 tab 11/11/20 cefuroxime axetil 250 mg PO BID #6 tab 11/19/20 prednisone 20 mg PO DAILY #5 tab 11/19/20 tamsulosin 0.4 mg PO BEDTIME #14 cap 11/19/20 DS: Summary Hospital Course Hospital Course: Admission note HPI This is a 65-year-old male with past medical history of gout, hypertension, HLD, diabetes, LALI, pulmonary arterial hypertension, right heart failure who presents to the hospital with complaints of left flank pain that started 2 days ago. Pain is 8/10, sharp, radiating to the grain. Patient denies any fever or chills, no nausea vomiting diarrhea constipation. No urinary symptoms including no frequency urgency or dysuria. He has no retention. He has many lower extremity edema. No headache or change in vision, no chest pain shortness of breath. Patient reports that he also has been having high blood pressure readings because he has not been compliant with his blood pressure medications. On arrival to the ED hemodynamically stable with a blood pressure of 185/93 otherwise normal vitals Labs are significant for WBC count of 15.3, hemoglobin of 11.9, sodium of 138, BUN of 28, creatinine of 1.86 (most recent creatinine have been in the 2s), lactic acid of 2.3, UA negative for leukocyte esterase or nitrates, COVID-[address] reveals left grade 1-2 hydroureteronephrosis secondary to an obstructing 5 mm proximal ureteral calculus Patient will be admitted with a consult to Urology Hospital course The patient was admitted to the hospital for evaluation of obstructing left ureter stone of 0.5 centimetre. He was treated with IV fluid, ceftriaxone and P medication with good response. He did not notice passing the stone. He was evaluated by Dr. Cummins from Urology who recommended no intervention needed as the pain resolved totally during the hospital stay and to follow-up as outpatient. Advised to treat with tamsulosin and prednisone for the short-term. Continue Ceftin for 3 more days. Time Spent with Patient Time attestation: Total time spent providing and/or coordinating discharge services: Discharge coordination time: Greater than 30 minutes Physical Exam Vital Signs: Vital Signs: Last Vital Signs Temp 97.4 F 11/19/20 07:19 Pulse 92 11/19/20 07:19 Resp 20 11/19/20 07:19 BP 184/90 H 11/19/20 07:19 Pulse Ox 94 11/19/20 07:19 Body Mass Index 55.3 Const: Other: Constitutional : Alert, oriented, not in distress Neck : Normal inspection, Supple Cardiovascular : RRR, S1 S2, no lower extremity edema Respiratory : Good bilateral air entry, no crackles, wheezes or rhonchi Gastrointestinal: soft, lax, Normal bowel sounds, Non tender Skin : Warm/Dry, No rash Neurological : Alert & oriented x3, No focal deficit DS: Data Data Completed and Pending Labs on day of discharge: Laboratory Results - last 24 hr 11/18/20 11/18/20 11/18/20 00:00 11:54 18:18 WBC RBC Hgb Hct MCV MCH MCHC RDW Plt Count MPV Immature Gran % (Auto) Neut % (Auto) Lymph % (Auto) [place] % (Auto) Eos % (Auto) Baso % (Auto) Lymph # (Auto) [place] # (Auto) Eos # (Auto) Baso # (Auto) Abs Immat Gran (auto) Absolute Neuts (auto) Absolute Nucleated RBC Nucleated RBC % (auto) Sodium Potassium Chloride Carbon Dioxide Anion Gap BUN Creatinine Estim Creat Clear Calc Estimated GFR POC Glucose 87 126 H 105 Random Glucose Calcium 11/18/20 11/19/20 11/19/20 20:29 05:47 05:47 WBC 14.3 H RBC 3.67 L Hgb 10.8 L Hct 34.1 L MCV 92.9 MCH 29.4 MCHC 31.7 RDW 13.9 Plt Count 258 MPV 9.7 Immature Gran % (Auto) 0.6 H Neut % (Auto) 77.7 H Lymph % (Auto) 11.9 L [place] % (Auto) 6.6 Eos % (Auto) 2.7 Baso % (Auto) 0.5 Lymph # (Auto) 1.7 [place] # (Auto) 0.9 Eos # (Auto) 0.4 Baso # (Auto) 0.1 Abs Immat Gran (auto) 0.08 H Absolute Neuts (auto) 11.1 H Absolute Nucleated RBC 0.000 Nucleated RBC % (auto) 0.0 Sodium 141 Potassium 3.9 Chloride 100 Carbon Dioxide 33 H Anion Gap 12 BUN 24 H Creatinine 1.88 H Estim Creat Clear Calc 56.7 Estimated GFR 36 POC Glucose 119 H Random Glucose 108 Calcium 8.4 D 11/19/20 11/19/20 05:47 07:22 WBC RBC Hgb Hct MCV MCH MCHC RDW Plt Count MPV Immature Gran % (Auto) Neut % (Auto) Lymph % (Auto) [place] % (Auto) Eos % (Auto) Baso % (Auto) Lymph # (Auto) [place] # (Auto) Eos # (Auto) Baso # (Auto) Abs Immat Gran (auto) Absolute Neuts (auto) Absolute Nucleated RBC Nucleated RBC % (auto) Sodium Cancelled Potassium Cancelled Chloride Cancelled Carbon Dioxide Cancelled Anion Gap Cancelled BUN Cancelled Creatinine Cancelled Estim Creat Clear Calc Cancelled Estimated GFR Cancelled POC Glucose 119 H Random Glucose Cancelled Calcium Cancelled Preliminary micro results at discharge 11/18/20 03:46 Blood Culture - Preliminary Blood - Venous No growth after 24 hours. 11/18/20 03:46 Blood Culture - Preliminary Blood - Venous No growth after 24 hours. Discharge Plan Discharge Patient Disposition: Home, Self-Care Referrals: Physician,Nonstaff [Primary Care Provider] - Discharge Medications: New tamsulosin 0.4 mg capsule 0.4 mg PO BEDTIME Qty: 14 RF: 0 prednisone 20 mg tablet 20 mg PO DAILY Qty: 5 RF: 0 cefuroxime axetil 250 mg tablet 250 mg PO BID Qty: 6 RF: 0 Continued duloxetine 20 mg capsule,delayed release(DR/EC) 20 mg PO BID Qty: 60 RF: 3 hydrocodone-acetaminophen 5-300 mg tablet 1 tab PO BID PRN (Reason: pain) 7 Days Qty: 14 RF: 0 magnesium 200 mg tablet 400 mg PO DAILY Qty: 60 RF: 0 lisinopril 40 mg tablet 40 mg PO DAILY RF: 0 lidocaine [Lidoderm] 5 % adhesive patch,medicated 1 patch topical DAILY RF: 0 allopurinol 300 mg tablet 300 mg PO BID Qty: 30 RF: 2 atorvastatin 80 mg tablet 80 mg PO DAILY Qty: 90 RF: 1 polyethylene glycol 3350 [Miralax] 17 gram powder in packet 17 g PO DAILY 30 Days Qty: 30 RF: 2 furosemide 40 mg tablet 40 mg PO DAILY 30 Days Qty: 30 RF: 2 metformin 500 mg tablet 500 mg PO BID RF: 0 Discharge Orders: Discharge Order (Routine); Ordered 11/19/20 Ordered By: Ludmila Orona Diet: advance to usual diet Activity on Discharge: As tolerated Stand Alone Forms: Patient Portal Discharge page Visit Report Forms: Patient Portal Discharge page Care Plan Goals: See below Health Concerns: See below Plan of Treatment: you were admitted to the hospital for evaluation of left flank pain as a result of obstructing ureter stone. You were treated with IV fluids, pain medication antibiotic with good response. Evaluated by Dr. Cummins from Urology who recommended follow-up in 2 weeks. Continue prednisone and tamsulosin as prescribed Continue Ceftin for 3 more days
[2020-11-19 11:34] VITALS: BP 187/96; PULSE 84; RESP 19; TEMP 36.7; O2SAT 92
[2020-11-19 12:10] VITALS: BP 168/78
[2020-11-19 14:21] LABS: Glucose, Whole Blood 116 mg/dL (60-115)
== END 2020-11-19 13:47 | disposition home or self-care (01) | DRG 694 ==
LOC: HO.ED 11-18 03:37 → HO.EDOVER 11-18 05:36 → HO.S3 11-18 17:59
PROVIDERS: Admitting Provider Internal Medicine; Emergency Provider Student in an Organized Health Care Education/Training Program; PCP Nurse Practitioner Family; Visit Provider Student in an Organized Health Care Education/Training Program
DX: N13.2 Hydronephrosis with renal and ureteral calculous obstruction (principal); I50.32 Chronic diastolic (congestive) heart failure; Z68.43 Body mass index [BMI] 50.0-59.9, adult; E66.01 Morbid (severe) obesity due to excess calories; N17.9 Acute kidney failure, unspecified; E11.9 Type 2 diabetes mellitus without complications; I11.0 Hypertensive heart disease with heart failure; D72.829 Elevated white blood cell count, unspecified; M10.9 Gout, unspecified; Z20.822 Contact with and (suspected) exposure to COVID-19; Z79.52 Long term (current) use of systemic steroids; Z79.84 Long term (current) use of oral hypoglycemic drugs; Z79.899 Other long term (current) drug therapy
CPT/HCPCS: 36415; 71045; 74176; 80048; 80053; 80307; 80320; 81001; 82009; 82947; 83605; 83690; 83735; 85025; 87040; 87635; 93005; 96365; 99285; J0696

== ENCOUNTER 2021-04-08 06:05 | Outpatient (REF) | payer MEDICARE, SELFPAY ==
[2021-04-08 11:23] LABS: Hemoglobin 11.9 g/dl (14.0-18.0); Mean Corpuscular HGB Conc 31.3 g/dl (31.0-36.0); Mean Corpuscular Hemoglobin 30.2 pg (27.0-33.0); Mean Corpuscular Volume 96.4 fL (80-98); Mean Platelet Volume 10.7 fL (9.4-12.4); Platelet Count 291 X10*3/uL (160-400); Red Blood Count 3.94 X10*6/uL (4.60-5.80); Red Cell Distribution Width 14.5 % (11.0-16.0); White Blood Count 12.1 X10*3/uL (4.8-10.8)
[2021-04-08 11:37] LABS: Estimated Average Glucose 126 mg/dL
[2021-04-08 11:42] LABS: Alanine Aminotransferase 14 U/L (0-40); Albumin Level 3.7 g/dL (3.5-5.0); Alkaline Phosphatase 110 U/L (39-117); Anion Gap 17 (12-20); Aspartate Amino Transferase 16 U/L (5-37); Bilirubin Direct < 0.2 mg/dL (0.0-0.5); Bilirubin Total 0.5 mg/dL (0.0-1.0); Blood Urea Nitrogen 26 mg/dL (9-16); Calcium 9.8 mg/dL (8.4-10.2); Carbon Dioxide 28 mmol/L (22-29); Chloride 101 mmol/L (96-108); Estimated Glomerular Filt Rate 44; Glucose Random 119 mg/dL (60-115); Magnesium 2.2 mg/dL (1.6-2.6); Potassium 4.4 mmol/L (3.3-5.1); Sodium 142 mmol/L (135-145); Total Protein 7.6 g/dL (6.5-8.0)
== END 2021-04-08 06:06 | disposition home or self-care (01) ==
LOC: HO.HMGCLDS 06:05
PROVIDERS: PCP Nurse Practitioner Family; Visit Provider Nurse Practitioner Family
DX: E11.9 Type 2 diabetes mellitus without complications (principal); E83.42 Hypomagnesemia
CPT/HCPCS: 36415; 80048; 80076; 83036; 83735; 85027

== ENCOUNTER 2022-11-28 10:02 | Outpatient (REF) | payer OTHER, SELFPAY ==
[2022-11-28 11:10] LABS: MANUAL DIFF FLAG NO
[2022-11-28 11:20] LABS: Basophils Absolute Auto 0.1 X10*3/uL (0.0-0.2); Eosinophils Absolute Auto 0.5 X10*3/uL (0.0-0.4); Eosinophils Percent Auto 4.2 % (0-4); Hematocrit 41.9 % (42.0-52.0); Imm Gran Abs Auto 0.09 X10*3/uL (0.00-0.03); Imm Gran Pct Auto 0.8 % (0.0-0.4); Lymphocytes Absolute Auto 3.1 X10*3/uL (1.2-4.9); Lymphocytes Percent Auto 27.8 % (20-40); Mean Corpuscular Hemoglobin 28.7 pg (27.0-33.0); Mean Corpuscular Volume 92.5 fL (80.0-98.0); Mean Platelet Volume 10.5 fL (9.4-12.4); Monocytes Absolute Auto 0.6 X10*3/uL (0.1-1.2); Monocytes Percent Auto 5.1 % (2-11); Neutrophils Absolute Auto 6.9 x10*3/uL (2.0-8.3); Neutrophils Percent Auto 61.1 % (45-73); Platelet Count 283 X10*3/uL (160-400); Red Blood Count 4.53 X10*6/uL (4.60-5.80); Red Cell Distribution Width 14.9 % (11.0-16.0); White Blood Count 11.2 X10*3/uL (4.8-10.8)
[2022-11-28 12:13] LABS: Estimated Average Glucose 120 mg/dL; Hemoglobin A1c % 5.8 %
[2022-11-28 13:03] LABS: Alanine Aminotransferase 13 U/L (0-40); Albumin Level 3.8 g/dL (3.5-5.0); Alkaline Phosphatase 110 U/L (39-117); Anion Gap 16 (12-20); Aspartate Amino Transferase 15 U/L (5-37); Bilirubin Total 0.5 mg/dL (0.0-1.0); Blood Urea Nitrogen 19 mg/dL (9-16); Calcium 9.1 mg/dL (8.4-10.2); Carbon Dioxide 29 mmol/L (22-29); Chloride 103 mmol/L (96-108); Cholesterol 148 mg/dL; Estimated Glomerular Filt Rate 53; Glucose Fasting 113 mg/dL (60-99); HDL Cholesterol 39 mg/dL; LDL Cholesterol Calculated 74 mg/dl; Potassium 4.1 mmol/L (3.3-5.1); Sodium 144 mmol/L (135-145); Total Protein 7.3 g/dL (6.5-8.0); Triglycerides 179 mg/dL
[2022-11-28 13:06] LABS: TSH reflex Free T4 3.03 uIU/mL (0.32-4.0)
[2022-11-28 13:11] LABS: Anion Gap 15 (12-20); Blood Urea Nitrogen 20 mg/dL (9-16); Carbon Dioxide 28 mmol/L (22-29); Chloride 103 mmol/L (96-108); Estimated Glomerular Filt Rate 54; Iron 59 mcg/dL (45-160); Percent Iron Saturation 21 % (15-50); Sodium 142 mmol/L (135-145); Total Iron Binding Capacity 283 mcg/dL (228-428); Unsaturated Iron Binding 224 ug/dL
[2022-11-28 15:45] LABS: Appearance Urine Clear; Color Urine Yellow; Glucose Urine UA Negative (Negative); Leukocyte Esterase Urine Negative (Negative); Nitrite Urine Negative (Negative); PH 5.5 (5.0-9.0); UMIC TRIGGER UACC YES; Urine Blood Negative (Negative); Urine Ketones Negative (Negative); Urine Protein 100 (2+) mg/dL (Neg-Trace)
[2022-11-28 15:50] LABS: Bacteria Urine None Seen (None Seen); Hyaline Casts Urine 0-2 /LPF (0-2); RBC Urine 0-2 /HPF (0-2); Squamous Epithelial Cell Urine 0-2 /HPF (0-2); WBC Urine 0-5 /HPF (0-5)
[2022-11-28 16:06] LABS: Creatinine Urine 165.17 mg/dL; Microalbum/Creatinine Ratio Ur 170.1 ug/mg cr
[2022-11-28 16:07] LABS: Creatinine Urine 165.43 mg/dL; Protein/Creatinine Ratio, Ur 0.36 (<0.2); Total Protein Urine Random 60 mg/dL (<12)
== END 2022-11-28 10:03 | disposition home or self-care (01) ==
LOC: HO.HMGCLDS 10:02
PROVIDERS: Absent Provider Nurse Practitioner Family; PCP Nurse Practitioner Family; Visit Provider Internal Medicine Nephrology
DX: E11.9 Type 2 diabetes mellitus without complications (principal); E83.42 Hypomagnesemia; N17.9 Acute kidney failure, unspecified
CPT/HCPCS: 36415; 80051; 80053; 80061; 81001; 82043; 82310; 82565; 83036; 83540; 83735; 84156; 84443; 84520; 85025

== ENCOUNTER 2023-06-19 10:01 | Outpatient (REF) | payer OTHER, SELFPAY ==
[2023-06-19 11:11] LABS: MANUAL DIFF FLAG NO
[2023-06-19 11:12] LABS: Basophils Absolute Auto 0.1 X10*3/uL (0.0-0.2); Basophils Percent Auto 0.7 % (0-2); Eosinophils Absolute Auto 0.3 X10*3/uL (0.0-0.4); Eosinophils Percent Auto 2.3 % (0-4); Hematocrit 43.6 % (42.0-52.0); Hemoglobin 13.3 g/dl (14.0-18.0); Imm Gran Abs Auto 0.13 X10*3/uL (0.00-0.03); Imm Gran Pct Auto 1.1 % (0.0-0.4); Lymphocytes Absolute Auto 2.7 X10*3/uL (1.2-4.9); Lymphocytes Percent Auto 22.3 % (20-40); Mean Corpuscular HGB Conc 30.5 g/dl (31.0-36.0); Mean Corpuscular Hemoglobin 27.9 pg (27.0-33.0); Mean Corpuscular Volume 91.6 fL (80.0-98.0); Monocytes Absolute Auto 0.7 X10*3/uL (0.1-1.2); Monocytes Percent Auto 5.7 % (2-11); Neutrophils Absolute Auto 8.2 x10*3/uL (2.0-8.3); Neutrophils Percent Auto 67.9 % (45-73); Platelet Count 274 X10*3/uL (160-400); Red Blood Count 4.76 X10*6/uL (4.60-5.80); Red Cell Distribution Width 14.9 % (11.0-16.0); White Blood Count 12.1 X10*3/uL (4.8-10.8)
[2023-06-19 11:29] LABS: Appearance Urine Clear; Color Urine Yellow; Glucose Urine UA Negative (Negative); Leukocyte Esterase Urine Negative (Negative); Nitrite Urine Negative (Negative); PH 5.5 (5.0-9.0); Specific Gravity - Urine 1.025 (1.005-1.025); UMIC TRIGGER UACC YES; Urine Blood Trace (Negative); Urine Ketones Negative (Negative); Urine Protein 300 (3+) mg/dL (Neg-Trace)
[2023-06-19 11:32] LABS: Bacteria Urine None Seen (None Seen); Hyaline Casts Urine 0-2 /LPF (0-2); RBC Urine 0-2 /HPF (0-2); WBC Urine 0-5 /HPF (0-5)
[2023-06-19 11:32] LABS: Estimated Average Glucose 117 mg/dL; Hemoglobin A1c % 5.7 % (<6.0)
[2023-06-19 11:56] LABS: Alanine Aminotransferase 14 U/L (0-40); Albumin Level 3.9 g/dL (3.5-5.0); Alkaline Phosphatase 104 U/L (39-117); Anion Gap 16 (12-20); Aspartate Amino Transferase 15 U/L (5-37); Bilirubin Total 0.4 mg/dL (0.0-1.0); Blood Urea Nitrogen 21 mg/dL (9-16); Calcium 9.9 mg/dL (8.4-10.2); Carbon Dioxide 28 mmol/L (22-29); Chloride 105 mmol/L (96-108); Cholesterol 141 mg/dL (<200); Estimated Glomerular Filt Rate > 60; Glucose Fasting 109 mg/dL (60-99); HDL Cholesterol 40 mg/dL (>40); LDL Cholesterol Calculated 80 mg/dL (<100); Potassium 3.9 mmol/L (3.3-5.1); Sodium 145 mmol/L (135-145); Total Protein 7.9 g/dL (6.5-8.0); Triglycerides 107 mg/dL (<150)
[2023-06-19 12:06] LABS: Prostate Specific Antigen Scr 0.81 ng/mL (<0.05-4.0)
[2023-06-19 12:13] LABS: TSH reflex Free T4 1.49 uIU/mL (0.32-4.0)
== END 2023-06-19 10:02 | disposition home or self-care (01) ==
LOC: HO.HMGCLDS 10:01
PROVIDERS: PCP Nurse Practitioner Family; Visit Provider Nurse Practitioner Family
DX: Z12.5 Encounter for screening for malignant neoplasm of prostate (principal); R79.89 Other specified abnormal findings of blood chemistry; E11.9 Type 2 diabetes mellitus without complications; I10 Essential (primary) hypertension
CPT/HCPCS: 36415; 80053; 80061; 81001; 83036; 84153; 84443; 85025

== ENCOUNTER 2023-06-23 08:48 | Outpatient (AMB) | payer OTHER, SELFPAY ==
--- NOTE | 2023-06-23 08:58 | AM.OFFVISMDC ---
Intake Vital Signs 06/23/23 08:59 Height 5 ft 7 in Weight 330 lb BMI 51.7 BP 142/96 H Blood Pressure Location Lt brachial Position Sitting Pulse 82 Pulse Source Pulse Oximeter Pulse Oximetry (%) 95 Oxygen Delivery Method Room Air Intake Visit Reasons: AWV [id number] 09/03/16 Allergies No Known Allergies Allergy (Verified 06/23/23 09:05) PFSH Medical History Acute gout of left foot FOREST (acute kidney injury) Cerebrovascular accident (CVA) Chronic fatigue Diastolic heart failure HTN (hypertension) Hyperlipidemia Leg pain Morbid obesity Newly diagnosed diabetes LALI (obstructive sleep apnea) Pulmonary arterial hypertension Right heart failure Surgical History Hx of shoulder surgery No pertinent past surgical history Family History Father Blood clot in vein Mother Cancer Social History Household Members: Spouse Housing: Apartment Do you presently have visiting nurse or other home services: No Years Smoked: nonsmoker service: No Current occupational status: unemployed Physical Exam Vital Signs: Last Vital Signs Pulse 82 06/23/23 08:59 BP 142/96 H 06/23/23 08:59 Pulse Ox 95 06/23/23 08:59 Oxygen Delivery Method Room Air 06/23/23 08:59 BMI result Body Mass Index 51.7 Coding
[2023-06-23 08:59] VITALS: BP 142/96; PULSE 82; O2SAT 95; BMI 51.7
--- NOTE | 2023-06-23 09:24 | A.OFFPC_ITS ---
Vital Signs 06/23/23 08:59 Height 5 ft 7 in Weight 330 lb BMI 51.7 BP 142/96 H Blood Pressure Location Lt brachial Position Sitting Pulse 82 Pulse Source Pulse Oximeter Pulse Oximetry (%) 95 Oxygen Delivery Method Room Air Intake Visit Reasons: AWV [id number] 09/03/16 Allergies No Known Allergies Allergy (Verified 06/23/23 09:05) Medication List - Last Reconciled 06/23/23 by FIDENCIO Solis allopurinol 300 mg PO BID atorvastatin 80 mg PO DAILY duloxetine 20 mg PO BID furosemide 40 mg PO DAILY lidocaine 5% (Lidoderm) 1 patch topical DAILY 90 days lisinopril 40 mg PO DAILY magnesium oxide 400 mg PO DAILY metformin 500 mg PO BID polyethylene glycol 3350 (Miralax) 17 grams PO DAILY 30 days tamsulosin 0.4 mg PO BEDTIME HPI AWV [id number] 09/03/16 HPI Details THIS IS THE FIRST TIME SEEING THIS PT IN HOUSE. Pt's WBC count was elevated. Will order chest XR, UA, and repeat CBC. Denies fever, chills, and any signs of infection. Pt reports increased in generalized pains. Will increase duloxetine from 20mg bid to 30mg bid. Pt was supposed to see cardiology but insure what happened to this appointment. Pt has a hx of right-sided heart failure. Will repeat echo and refer to cardiology. Denies any chest pain, does report VALENCIA. Pt has never smoked. Pt has been off of his meds for over a week. Pt is a diabetic, on an KAREN and a statin. Last A1C was 5.7, microalbumin is up to date. Refuses colon screen of any kind. [facility] Medical History (Updated 06/23/23 @ 12:46 by FIDENCIO Solis) Leukocytosis LALI (obstructive sleep apnea) Hyperlipidemia HTN (hypertension) Morbid obesity Right heart failure Diastolic heart failure Leg pain Newly diagnosed diabetes Acute gout of left foot FOREST (acute kidney injury) Chronic fatigue Pulmonary arterial hypertension Cerebrovascular accident (CVA) Surgical History Hx of shoulder surgery No pertinent past surgical history Family History Father Blood clot in vein Mother Cancer Social History Household Members: Spouse Housing: Apartment Do you presently have visiting nurse or other home services: No Years Smoked: nonsmoker service: No Current occupational status: unemployed Review of Systems Const Reports as per HPI Physical exam (Primary Care) Vital Signs: Last Vital Signs Pulse 82 06/23/23 08:59 BP 142/96 H 06/23/23 08:59 Pulse Ox 95 06/23/23 08:59 Oxygen Delivery Method Room Air 06/23/23 08:59 BMI result Body Mass Index 51.7 PHQ-9: PHQ-9 Score PHQ-9: Total score 8 06/23/23 09:57 Const General: cooperative Nutritional Appearance: obese morbidly obese Orientation/consciousness: patient oriented x3 Limitations: ambulation with cane Resp Effort & Inspection: normal respiratory effort Auscultation: diminished lung sounds Cardio Other: difficult to auscultate Heart sounds: Murmur heart sound present systolic Neuro General: patient oriented x3 Extrem Right lower extremity: edema Details: pitting and 1+ Left lower extremity: edema Details: pitting and 1+ Psych Appearance: grossly normal Mental Status: mental status grossly normal Speech and movement: Normal speech and movement present Affect: normal affect Attitude: cooperative Thought process: Normal thought process present Thought content: Normal thought content present Insight: Good insight present (Psych) Judgement: Good judgement present (Psych) Assessment and Plan Assessment & Plan (1) Morbid obesity: Code(s): E66.01 - Morbid (severe) obesity due to excess calories (2) Right heart failure: Code(s): I50.810 - Right heart failure, unspecified (3) Diastolic heart failure: Code(s): I50.30 - Unspecified diastolic (congestive) heart failure (4) HTN (hypertension): Code(s): I10 - Essential (primary) hypertension (5) Leukocytosis: Code(s): D72.829 - Elevated white blood cell count, unspecified Plan The patient agreed to the use of a medical billing instructor for this encounter. Scribed for FIDENCIO Vega by Izabella Moore medical billing instructor, on 06/23/2023 at 09:30 EST. Orders: Orders Complete Blood Count Auto Diff Today D72.829 - Elevated white blood cell count, unspecified XR chest 2V Today D72.829 - Elevated white blood cell count, unspecified CA echo transthoracic complete Today I50.810 - Right heart failure, unspecified, R01.1 - Cardiac murmur, unspecified AMB EKG-In Office Today E66.01 - Morbid (severe) obesity due to excess calories UA CC w/rflx Micro + Cult Today D72.829 - Elevated white blood cell count, unspecified Referrals Cardiology Referral I50.30 - Unspecified diastolic (congestive) heart failure, I50.810 - Right heart failure, unspecified Medications: Changed From duloxetine 20 mg PO BID 60 caps 0RF To duloxetine 30 mg PO BID 30 days 60 caps 0RF Refilled allopurinol 300 mg PO BID 60 tabs 0RF duloxetine 20 mg PO BID 60 caps 0RF lisinopril No more refills until pt is seen, appt 06/23/23 40 mg PO DAILY 30 tabs 0RF metformin No more refills until pt is seen, appt 20/23 500 mg PO BID 60 tabs 0RF for diabetes mellitus polyethylene glycol 3350 (Miralax) 17 grams PO DAILY 30 ea 2RF 30 days duloxetine 30 mg PO BID 60 caps 3RF 30 days atorvastatin 80 mg PO DAILY 90 tabs 3RF furosemide 40 mg PO DAILY 90 tabs 1RF magnesium oxide 400 mg PO DAILY 30 tabs 0RF tamsulosin 0.4 mg PO BEDTIME 14 caps 0RF Coding Level of Care Code Est Pt Level 3 (85130) Diagnoses Morbid obesity E66.01 Right heart failure I50.810 Diastolic heart failure I50.30 HTN (hypertension) I10 Leukocytosis D72.829
--- NOTE | 2023-06-23 09:24 | MHC.PC.OV ---
Vital Signs 06/23/23 08:59 Height 5 ft 7 in Weight 330 lb BMI 51.7 BP 142/96 H Blood Pressure Location Lt brachial Position Sitting Pulse 82 Pulse Source Pulse Oximeter Pulse Oximetry (%) 95 Oxygen Delivery Method Room Air Intake Visit Reasons: AWV [id number] 09/03/16 Allergies No Known Allergies Allergy (Verified 06/23/23 09:05) Medication List - Last Re[facility] 06[facility]23/23 [facility] allopurinol 300 mg PO BID atorvastatin 80 mg PO DAILY duloxetine 20 mg PO BID furosemide 40 mg PO DAILY lidocaine 5% (Lidoderm) 1 patch topical DAILY 90 days lisinopril 40 mg PO DAILY magnesium oxide 400 mg PO DAILY metformin 500 mg PO BID polyethylene glycol 3350 (Miralax) 17 grams PO DAILY 30 days tamsulosin 0.4 mg PO BEDTIME [facility] Medical History Acute gout of left foot FOREST (acute kidney injury) Cerebrovascular accident (CVA) Chronic fatigue Diastolic heart failure HTN (hypertension) Hyperlipidemia Leg pain Morbid obesity Newly diagnosed diabetes LALI (obstructive sleep apnea) Pulmonary arterial hypertension Right heart failure Surgical History Hx of shoulder surgery No pertinent past surgical history Family History Father Blood clot in vein Mother Cancer Social History Household Members: Spouse Housing: Apartment Do you presently have visiting nurse or other home services: No Years Smoked: nonsmoker service: No Current occupational status: unemployed Questionnaire PHQ-9 Over the last 2 weeks, how often have you been bothered by any of the following problems? 1. Little interest or pleasure in doing things: not at all 2. Feeling down, depressed, or hopeless: not at all 3. Trouble falling or staying asleep, or sleeping too much: several days 4. Feeling tired or having little energy: several days 5. Poor appetite or overeating: more than half the days 6. Feeling bad about yourself - or that you are a failure or have let yourself or your family down: several days 7. Trouble concentrating on things, such as reading the newspaper or watching television: not at all 8. Moving or speaking so slowly that other people could have noticed. Or the opposite - being so fidgety or restless that you have been moving around a lot more than usual: more than half the days 9. Thoughts that you would be better off or of hurting yourself in some way: several days Total score: 8 Source: Developed by Drs. Nikolai Hammonds, Rosalia Ahumada, Demetrius Bailey and colleagues, with an educational aisha from [employer]. Physical exam (Primary Care) Vital Signs: Last Vital Signs Pulse 82 06/23/23 08:59 BP 142/96 H 06/23/23 08:59 Pulse Ox 95 06/23/23 08:59 Oxygen Delivery Method Room Air 06/23/23 08:59 BMI result Body Mass Index 51.7 PHQ-9: PHQ-9 Score PHQ-9: Total score 8 06/23/23 09:57 Assessment and Plan Assessment & Plan (1) Leukocytosis: Code(s): D72.829 - Elevated white blood cell count, unspecified (2) Right heart failure: Code(s): I50.810 - Right heart failure, unspecified (3) Systolic murmur: Code(s): R01.1 - Cardiac murmur, unspecified (4) Diastolic heart failure: Code(s): I50.30 - Unspecified diastolic (congestive) heart failure (5) Morbid obesity: Code(s): E66.01 - Morbid (severe) obesity due to excess calories Orders: Orders Complete Blood Count Auto Diff Today D72.829 - Elevated white blood cell count, unspecified XR chest 2V Today D72.829 - Elevated white blood cell count, unspecified CA echo transthoracic complete Today I50.810 - Right heart failure, unspecified, R01.1 - Cardiac murmur, unspecified AMB EKG-In Office Today E66.01 - Morbid (severe) obesity due to excess calories UA CC w/rflx Micro + Cult Today D72.829 - Elevated white blood cell count, unspecified Referrals Cardiology Referral I50.30 - Unspecified diastolic (congestive) heart failure, I50.810 - Right heart failure, unspecified Medications: Changed From duloxetine 20 mg PO BID 60 caps 0RF To duloxetine 30 mg PO BID 30 days 60 caps 0RF Refilled allopurinol 300 mg PO BID 60 tabs 0RF duloxetine 20 mg PO BID 60 caps 0RF lisinopril No more refills until pt is seen, appt 06/23/23 40 mg PO DAILY 30 tabs 0RF metformin No more refills until pt is seen, appt 06/23/23 500 mg PO BID 60 tabs 0RF for diabetes mellitus polyethylene glycol 3350 (Miralax) 17 grams PO DAILY 30 ea 2RF 30 days duloxetine 30 mg PO BID 60 caps 3RF 30 days atorvastatin 80 mg PO DAILY 90 tabs 3RF furosemide 40 mg PO DAILY 90 tabs 1RF magnesium oxide 400 mg PO DAILY 30 tabs 0RF tamsulosin 0.4 mg PO BEDTIME 14 caps 0RF Coding Diagnoses Leukocytosis D72.829 Right heart failure I50.810 Systolic murmur R01.1 Diastolic heart failure I50.30 Morbid obesity E66.01
== END 2023-06-23 11:39 | disposition home or self-care (01) ==
PROVIDERS: PCP Nurse Practitioner Family; Visit Provider Nurse Practitioner Family
DX: I50.810 Right heart failure, unspecified (principal); I50.30 Unspecified diastolic (congestive) heart failure; Z68.43 Body mass index [BMI] 50.0-59.9, adult; E66.01 Morbid (severe) obesity due to excess calories; I11.0 Hypertensive heart disease with heart failure; D72.829 Elevated white blood cell count, unspecified
CPT/HCPCS: 99213

== ENCOUNTER 2023-06-23 10:07 | Outpatient (REF) | payer OTHER, SELFPAY ==
--- NOTE | ~2023-06-23 | XR_ITS ---
EXAMINATION: XR CHEST CLINICAL INFORMATION: Elevated white blood cell count COMPARISON: Chest radiograph from 11/18/2020 TECHNIQUE: 2 views of the chest were obtained. FINDINGS: Stable elevation the right hemidiaphragm. Right basilar atelectasis. No pneumothorax. Trachea is midline. Cardiac mediastinal silhouette is stable. No large pleural effusion. Osseous structures are intact. Soft tissues are unremarkable. XR/XR chest 2V IMPRESSION: 1. Stable elevation the right hemidiaphragm. 2. Right basilar atelectasis.
[2023-06-23 13:13] LABS: MANUAL DIFF FLAG NO
[2023-06-23 13:31] LABS: Appearance Urine Turbid; Color Urine Yellow; Glucose Urine UA Negative (Negative); Leukocyte Esterase Urine Negative (Negative); Nitrite Urine Negative (Negative); PH 5.5 (5.0-9.0); Specific Gravity - Urine >= 1.030 (1.005-1.025); UMIC TRIGGER UACC YES; Urine Blood Negative (Negative); Urine Ketones Negative (Negative); Urine Protein 300 (3+) mg/dL (Neg-Trace)
[2023-06-23 13:36] LABS: Basophils Absolute Auto 0.1 X10*3/uL (0.0-0.2); Basophils Percent Auto 0.7 % (0-2); Eosinophils Absolute Auto 0.2 X10*3/uL (0.0-0.4); Eosinophils Percent Auto 1.6 % (0-4); Hematocrit 43.9 % (42.0-52.0); Hemoglobin 13.5 g/dl (14.0-18.0); Imm Gran Abs Auto 0.08 X10*3/uL (0.00-0.03); Imm Gran Pct Auto 0.7 % (0.0-0.4); Lymphocytes Absolute Auto 1.6 X10*3/uL (1.2-4.9); Lymphocytes Percent Auto 13.9 % (20-40); Mean Corpuscular HGB Conc 30.8 g/dl (31.0-36.0); Mean Corpuscular Hemoglobin 28.1 pg (27.0-33.0); Mean Corpuscular Volume 91.3 fL (80.0-98.0); Mean Platelet Volume 10.3 fL (9.4-12.4); Monocytes Absolute Auto 0.6 X10*3/uL (0.1-1.2); Monocytes Percent Auto 5.4 % (2-11); Neutrophils Absolute Auto 8.7 x10*3/uL (2.0-8.3); Neutrophils Percent Auto 77.7 % (45-73); Platelet Count 283 X10*3/uL (160-400); Red Blood Count 4.81 X10*6/uL (4.60-5.80); Red Cell Distribution Width 14.7 % (11.0-16.0); White Blood Count 11.2 X10*3/uL (4.8-10.8)
[2023-06-23 13:43] LABS: Bacteria Urine None Seen (None Seen); WBC Urine 0-5 /HPF (0-5)
== END 2023-06-23 10:08 | disposition home or self-care (01) ==
LOC: HO.HMGCX 10:07
PROVIDERS: PCP Nurse Practitioner Family; Visit Provider Nurse Practitioner Family
DX: D72.829 Elevated white blood cell count, unspecified (principal)
CPT/HCPCS: 36415; 71046; 81001; 85025

== ENCOUNTER 2023-09-29 12:34 | Inpatient (IN) | payer OTHER, SELFPAY ==
[2023-09-29] VITALS (8 sets, daily range): BP systolic 123–166; BP diastolic 71–98; PULSE 62–73; RESP 20–24; TEMP 36.4; O2SAT 92–96; BMI 55.0
--- NOTE | ~2023-09-29 | XR_ITS ---
EXAMINATION: XR CHEST CLINICAL INFORMATION: Hypoxia. COMPARISON: Most recent chest radiograph dated 09/29/2023. TECHNIQUE: Frontal view of the chest was obtained. FINDINGS: Hypoinflation of the lungs with elevation of the right hemidiaphragm. Patchy bilateral airspace opacities which are new when compared to the prior examination. No pleural effusion or pneumothorax. Stable cardiomediastinal silhouette. XR/XR chest 1V IMPRESSION: Patchy bilateral airspace opacities, new when compared to the prior examination. Findings can be seen in the setting of an infectious or inflammatory process, including viral pneumonia.
--- NOTE | ~2023-09-29 | XR_ITS ---
EXAMINATION: XR CHEST CLINICAL INFORMATION: Hypoxia. COMPARISON: 10/03/2023 TECHNIQUE: Frontal view of the chest was obtained. FINDINGS: Lung volumes remain low. There is no gross pneumothorax. Bilateral patchy airspace opacities appear increased on the right. Stable cardiomediastinal silhouette remains difficult to evaluate due to low lung volumes. Persistent asymmetric elevation of the right lung base. XR/XR chest 1V IMPRESSION: Bilateral patchy airspace opacities appear increased on the right. Persistent asymmetric elevation of the right lung base. This study was presented today 10/05/2022 at 10:50 AM for interpretation. Stat results provided at this time as requested by referring provider.
--- NOTE | ~2023-09-29 | XR_ITS ---
EXAMINATION: XR CHEST CLINICAL INFORMATION: Shortness of breath COMPARISON: 06/23/2023 TECHNIQUE: Frontal view of the chest was obtained. FINDINGS: Study limited by body habitus and apical lordotic technique. Elevated right hemidiaphragm with the right vessel crowding. Prominent cardiac silhouette, aortic calcifications. Degenerative changes bilateral shoulders. XR/XR chest 1V IMPRESSION: Limited study. No definite consolidations or failure.
--- NOTE | 2023-09-29 12:45 | ECG_ITS ---
Test Reason : SOB Blood Pressure : / mmHG Vent. Rate : 068 BPM Atrial Rate : 068 BPM P-R Int : 256 ms QRS Dur : 122 ms QT Int : 484 ms P-R-T Axes : 073 098 131 degrees QTc Int : 514 ms Sinus rhythm with 1st degree A-V block with occasional Premature ventricular complexes Rightward axis Non-specific intra-ventricular conduction delay Nonspecific T wave abnormality Abnormal ECG When compared with ECG of 18-NOV-2020 00:10, T wave inversion now evident in Lateral leads Referred By: Generic ED Physician Electronically Signed By:GLEN ALLA
[2023-09-29] MEDS: Albuterol Sulfate 2.5 MG, Albuterol/Iprat 2.5/0.5MG 3 ML 3 ML INHALE (12:54)
[2023-09-29 13:18] LABS: MANUAL DIFF FLAG NO
[2023-09-29 13:20] LABS: Basophils Percent Auto 0.1 % (0-2); Hematocrit 42.9 % (42.0-52.0); Hemoglobin 13.3 g/dl (14.0-18.0); Imm Gran Abs Auto 0.07 X10*3/uL (0.00-0.03); Imm Gran Pct Auto 0.8 % (0.0-0.4); Lymphocytes Absolute Auto 0.5 X10*3/uL (1.2-4.9); Lymphocytes Percent Auto 5.8 % (20-40); Mean Corpuscular Hemoglobin 27.4 pg (27.0-33.0); Mean Corpuscular Volume 88.5 fL (80.0-98.0); Mean Platelet Volume 9.5 fL (9.4-12.4); Monocytes Absolute Auto 0.7 X10*3/uL (0.1-1.2); Monocytes Percent Auto 7.8 % (2-11); Neutrophils Absolute Auto 7.7 x10*3/uL (2.0-8.3); Neutrophils Percent Auto 85.5 % (45-73); Platelet Count 216 X10*3/uL (160-400); Red Blood Count 4.85 X10*6/uL (4.60-5.80); Red Cell Distribution Width 15.9 % (11.0-16.0)
[2023-09-29 13:25] LABS: Prothrombin Time 12.2 SEC (11.1-13.3)
[2023-09-29 13:28] LABS: Partial Thromboplastin Time 29.4 SEC (26.0-36.4)
[2023-09-29 13:34] LABS: Lactic Acid 2.6 mmol/L (0.5-2.0)
[2023-09-29 13:38] LABS: Influenza A PCR POSITIVE (Negative); Influenza B PCR NEGATIVE (Negative); Resp Syncy Virus RNA Qual PCR NEGATIVE (Negative); SARS COV2 PCR INHOUSE NEGATIVE (Negative)
--- NOTE | 2023-09-29 13:40 | ED.GENADULT ---
HPI - General Adult General Chief complaint: Dizziness Stated complaint: DIZZY X3 DAYS,LOW BP 88/29,86% ON RA PER EMS Time Seen by Provider: 09/29/23 13:40 Source: patient and EMS Mode of arrival: EMS Limitations: no limitations History of Present Illness HPI narrative: Patient is a 68 year old assigned male at with a history of HTN, CHF, DM, and CVA presenting to the emergency department today with dizziness and feeling generally unwell. Patient states that he has been having near syncopal episodes over the last 3 days. Patient denies any abdominal pain, nausea, vomiting, fever, chills, blurry vision, double vision, loss of vision, chest pain, back pain, night sweats, pain with urination, increased urinary frequency, increased urinary urgency, blood in his urine or stool, recent trauma or falls, bowel incontinence, bladder incontinence, bowel retention, bladder retention, or any other complaints at this time. Onset (ago): day(s) (3) Radiation: non-radiation Severity: moderate Severity scale (1-10): 5 Relieving factors: none Exacerbating factors: none Associated symptoms: shortness of breath Treatments prior to arrival: none Related Data Previous Rx's Medication Instructions Recorded lidocaine 5 % topical patch 1 patch topical DAILY 90 days #30 12/13/21 (Lidoderm) ea atorvastatin 80 mg tablet 80 mg PO DAILY #90 tabs 06/23/23 furosemide 40 mg tablet 40 mg PO DAILY #90 tabs 06/23/23 polyethylene glycol 3350 17 gram 17 g PO DAILY 30 days #30 ea 06/23/23 oral powder packet (Miralax) tamsulosin 0.4 mg capsule 0.4 mg PO BEDTIME #14 caps 06/23/23 amoxicillin 875 mg-potassium 1 tab PO BID 10 days #20 tabs 06/24/23 clavulanate 125 mg tablet allopurinol 300 mg tablet 300 mg PO BID 90 days #180 tabs 06/27/23 duloxetine 30 mg capsule,delayed 30 mg PO BID 30 days #60 caps 07/20/23 release magnesium oxide 400 mg (241.3 mg 400 mg PO DAILY #90 tabs 07/20/23 magnesium) tablet lisinopril 40 mg tablet 40 mg PO DAILY #90 tabs 07/24/23 metformin 500 mg tablet 500 mg PO BID for diabetes 08/08/23 mellitus #180 tabs Allergies Allergy/AdvReac Type Severity Reaction Status Date / Time No Known Allergies Allergy Verified 06/23/23 09:05 Review of Systems Constitutional: Constitutional: Reports no additional constitutional complaints, Denies chills, Denies fever(s) and Denies night sweats Eyes: Eyes: Reports no additional eye complaints, Denies blurry vision, Denies change in vision, Denies diplopia, Denies eye discharge, Denies loss of vision and Denies eye pain ENT: Reports dizziness Cardiovascular: Cardiovascular: Reports no additional cardiovascular complaints, Denies chest pain, Denies lightheadedness, Denies Loss of Consciousness and Reports dyspnea Respiratory: Respiratory: Reports no additional respiratory complaints and Reports dyspnea Gastrointestinal: Gastrointestinal: Reports no additional gastrointestinal complaints, Denies abdominal pain, Denies melena, Denies hematochezia, Denies change in bowel habits and Denies change in stool character Genitourinary: Genitourinary: Reports no additional male genitourinary complaints, Denies hematuria, Denies oliguria, Denies difficulty urinating, Denies dysuria, Denies urinary frequency, Denies urinary hesitancy, Denies urinary incontinence and Denies urinary urgency Musculoskeletal: Musculoskeletal: Reports no additional musculoskeletal complaints, Denies numbness and Denies tingling Neurologic: Reports dizziness, Denies loss of vision, Denies numbness and Denies tingling Comments: near syncope Psychiatric: Psychiatric: Reports no additional psychiatric complaints Endocrine: Endocrine: Reports no additional endocrine complaints Hematologic/Lymphatic: Hematologic/Lymphatic: Reports no additional hematologic/lymphatic complaints Allergic/Immunologic: Allergic/Immunologic: Reports no additional allergic/immunologic complaints [facility] Past Medical History Attestation statement: The following information was validated with the patient. Source: old records reviewed and nursing notes reviewed Medical History Screening PSA (prostate specific antigen) Elevated serum creatinine Morbid obesity Right heart failure Leg pain FOREST (acute kidney injury) Leukocytosis LALI (obstructive sleep apnea) Hyperlipidemia HTN (hypertension) Diastolic heart failure Newly diagnosed diabetes Acute gout of left foot Chronic fatigue Pulmonary arterial hypertension Cerebrovascular accident (CVA) Surgical History Hx of shoulder surgery No pertinent past surgical history Family History Family History Father Blood clot in vein Mother Cancer Social History Social History Household Members: Spouse Housing: Apartment Do you presently have visiting nurse or other home services: No Years Smoked: nonsmoker Advance Directives: Yes Advance Directives on File: Yes Advance Directives Date on File: 12/03/20 service: No Current occupational status: unemployed Physical Exam ED Vital Signs: Vital Signs - 24 hr 09/29/23 12:47 09/29/23 12:54 Temperature 97.6 F Pulse Rate 67 69 Respiratory Rate 20 24 H Blood Pressure 166/82 H Pulse Oximetry 93 Oxygen Delivery Method Nasal Cannula BMI result Body Mass Index 55.0 Const General: cooperative, no acute distress, alert and awake Nutritional Appearance: well nourished Orientation/consciousness: patient oriented x3 Limitations: no limitations HENMT Head: Yes normal to inspection and Yes atraumatic Ears: hearing grossly normal bilaterally and external ears normal General nose exam: Normal external nose present, no nasal discharge noted and no epistaxis Face and sinus: Yes normal facial exam, No abrasion and No laceration Mouth: Normal oral and palatal mucosa present, no drooling and no muffled voice Eyes General: appearance normal, both eyes and all related structures Periorbital: periorbital findings normal Eyelids: Yes eyelids normal Conjunctivae: conjunctivae normal Pupils: Equal, round and reactive pupils present EOM: EOMs intact bilaterally Neck Neck: Yes normal visual inspection, Yes full ROM and Yes no lymphadenopathy Chest Chest palpation & inspection: normal inspection of the chest Resp Effort & Inspection: able to speak in complete sentences and labored Auscultation: diminished lung sounds diffuse Cardio Rate: regular rate Rhythm: regular rhythm GI Inspection: Yes normal to inspection Neuro General: patient oriented x3 and moves all extremities Cranial nerves: Yes Equal, round and reactive pupils present Cognition (Neuro): normal cognition Motor exam (neuro): 5/5 motor strength present throughout Sensory Exam: Normal double simultaneous stimulation for sensation Coordination: [id number] test normal Extrem General: Yes normal to inspection, Yes full ROM and Yes capillary refill normal Psych Appearance: grossly normal Mental Status: mental status grossly normal Affect: normal affect Attitude: cooperative Thought process: Normal thought process present Thought content: Normal thought content present Insight: Good insight present (Psych) Medications Administered Discontinued Medications Generic Name Dose Route Start Last Admin Trade Name Augustoq PRN Reason Stop Dose Admin Albuterol Sulfate 2.5 mg/ 0 mg 09/29/23 12:50 09/29/23 12:54 Albuterol/Ipratropium 3 ml INHALE 09/29/23 12:51 1 dose ONCE ONE Administration Medical Decision Making Medical Decision Making [facility] Narrative: Patient is a 68 year old assigned male at with a history of DM, CHF, HTN, and CVA presenting to the emergency department today with multiple near syncopal episodes and shortness of breath. Patient's physical exam was as noted in the physical exam portion of this note. Patient's blood work showed an elevated lactic of 2.6 but was otherwise unremarkable. Patient's influenza test was positive. Patient's EKG was unremarkable. Patient's chest x-ray showed no acute process however, the radiologist did note that the study was sub-optimal. Patient arrived hypoxic with an oxygen saturation of 87% on room air. Patient was placed on 5lpm of oxygen via nasal canula which brought him up to 92%. Patient was given IV steroids and PO Tamiflu. Patient's clinical presentation is not consistent with sepsis (@1350). Patient not given IV fluids secondary to history of CHF. I spoke to the hospitalist team who agreed to admission. I explained my physical exam findings as well as all test results to the patient. I answered all questions asked by the patient. Patient verbalized agreement and understanding with this treatment plan and admission. Differential Diagnosis Differential Diagnoses: The differential diagnosis associated with the presentation includes Influenza Hypoxia Respiratory distress RSV COVID-19 PNA Admission/Observation Consideration of admission/observation: Escalation of care including admission/observation considered Patient admitted. Consult Healthcare Provider Management of the patient was discussed with: Hospitalist (agreed to admission.) Lab Data [facility] Lab Attestation statement: I reviewed the patient's lab results. My interpretation of these results are in the MDM Rationale portion of this note. 09/29/23 13:13 09/29/23 13:12 Labs: Lab Results 09/29/23 09/29/23 09/29/23 Range/Units 12:54 13:12 13:13 WBC 9.0 (4.8-10.8) X10*3/uL RBC 4.85 (4.60-5.80) X10*6/uL Hgb 13.3 L (14.0-18.0) g/dl Hct 42.9 (42.0-52.0) % MCV 88.5 (80.0-98.0) fL MCH 27.4 (27.0-33.0) pg MCHC 31.0 (31.0-36.0) g/dl RDW 15.9 (11.0-16.0) % Plt Count 216 (160-400) X10*3/uL MPV 9.5 (9.4-12.4) fL Immature Gran % (Auto) 0.8 H (0.0-0.4) % Neut % (Auto) 85.5 H (45-73) % Lymph % (Auto) 5.8 L (20-40) % [place] % (Auto) 7.8 (2-11) % Eos % (Auto) 0.0 (0-4) % Baso % (Auto) 0.1 (0-2) % Lymph # (Auto) 0.5 L (1.2-4.9) X10*3/uL [place] # (Auto) 0.7 (0.1-1.2) X10*3/uL Eos # (Auto) 0.0 (0.0-0.4) X10*3/uL Baso # (Auto) 0.0 (0.0-0.2) X10*3/uL Abs Immat Gran (auto) 0.07 H (0.00-0.03) X10*3/uL Absolute Neuts (auto) 7.7 (2.0-8.3) x10*3/uL Absolute Nucleated RBC 0.000 (0.0-0.012) X10*3/uL Nucleated RBC % (auto) 0.0 (0.0-0.2) /100WBC PT 12.2 (11.1-13.3) SEC INR 1.0 (0.9-1.1) APTT 29.4 (26.0-36.4) SEC Sodium 140 (135-145) mmol/L Potassium 3.8 (3.3-5.1) mmol/L Chloride 99 (96-108) mmol/L Carbon Dioxide 26 (22-29) mmol/L Anion Gap 19 (12-20) BUN 17 H (9-16) mg/dL Creatinine 1.22 (0.5-1.4) mg/dL Estim Creat Clear Calc 83.5 Estimated GFR 59 Random Glucose 156 H (60-115) mg/dL Lactic Acid 2.6 H* (0.5-2.0) mmol/L Calcium 9.4 (8.4-10.2) mg/dL Total Bilirubin 0.4 (0.0-1.0) mg/dL Direct Bilirubin 0.2 (0.0-0.5) mg/dL AST 39 H (5-37) U/L ALT 26 (0-40) U/L Alkaline Phosphatase 97 (39-117) U/L Total Protein 8.5 H (6.5-8.0) g/dL Albumin 4.0 (3.5-5.0) g/dL Influenza Type A (PCR) POSITIVE A (Negative) Influenza Type B (PCR) NEGATIVE (Negative) RSV RNA Qual (PCR) NEGATIVE (Negative) SARS-CoV-2 RNA (RT-PCR) NEGATIVE (Negative) Independent Interpretation I performed an independent interpretation of an: EKG and Plain X-Ray Interpretation: My interpretation is in agreement with the radiologist's impression of this imaging study. EXAMINATION: XR CHEST CLINICAL INFORMATION: Shortness of breath COMPARISON: 06/23/2023 TECHNIQUE: Frontal view of the chest was obtained. FINDINGS: Study limited by body habitus and apical lordotic technique. Elevated right hemidiaphragm with the right vessel crowding. Prominent cardiac silhouette, aortic calcifications. Degenerative changes bilateral shoulders. XR/XR chest 1V IMPRESSION: Limited study. No definite consolidations or failure. Dictated By: Nafisa Qureshi MD Signed By: Electronically signed by Nafisa Qureshi MD 09/29/23 1349 Vent. Rate: 068 BPM Atrial Rate: 068 BPM P-R Int: 256 ms QRS Dur: 122 ms QT Int: 484 ms P-R-T Axes: 073 098 131 degrees QTc Int: 514 ms Sinus rhythm with 1st degree A-V block with occasional Premature ventricular complexes Rightward axis Non-specific intra-ventricular conduction delay Nonspecific T wave abnormality Abnormal ECG When compared with ECG of 18-NOV-2020 00:10, Questionable change in QRS axis T wave inversion now evident in Lateral leads DD/ 1300 Radiology Impression Discussion of test interpretation with radiology: I have reviewed the radiologist's reading. Independent Historian Clinical information obtained from an independent historian. History obtained from or confirmed by: EMS (EMS provided additional history and confirmed the history provided by the patient.) Critical Care Time Critical Care Time Critical Care Time: Yes Total Critical Care Time: 45 Attestation: I spent 45 minutes of Critical Care Time with this patient. This does not include time spent on separately reported billable procedures. Discharge Plan Discharge Clinical Impression: Influenza, Hypoxia Patient Disposition: Admitted As Inpatient Prescriptions: No Action lidocaine [Lidoderm] 5 % adhesive patch,medicated 1 patch topical DAILY 90 Days Qty: 30 0RF Rx Instructions: leave on most painful area for up to 12 hrs allopurinol 300 mg tablet 300 mg PO BID 90 Days Qty: 180 0RF magnesium oxide 400 mg (241.3 mg magnesium) tablet 400 mg PO DAILY Qty: 90 0RF duloxetine 30 mg capsule,delayed release(DR/EC) 30 mg PO BID 30 Days Qty: 60 3RF lisinopril 40 mg tablet 40 mg PO DAILY Qty: 90 0RF metformin 500 mg tablet 500 mg PO BID Qty: 180 1RF atorvastatin 80 mg tablet 80 mg PO DAILY Qty: 90 3RF furosemide 40 mg tablet 40 mg PO DAILY Qty: 90 1RF polyethylene glycol 3350 [Miralax] 17 gram powder in packet 17 g PO DAILY 30 Days Qty: 30 2RF tamsulosin 0.4 mg capsule 0.4 mg PO BEDTIME Qty: 14 0RF amoxicillin-pot clavulanate 875-125 mg tablet 1 tab PO BID 10 Days Qty: 20 0RF
--- NOTE | 2023-09-29 13:42 | PC.NURSE ---
Pt made aware he is flu +
[2023-09-29 13:44] LABS: Alanine Aminotransferase 26 U/L (0-40); Alkaline Phosphatase 97 U/L (39-117); Anion Gap 19 (12-20); Aspartate Amino Transferase 39 U/L (5-37); Bilirubin Direct 0.2 mg/dL (0.0-0.5); Bilirubin Total 0.4 mg/dL (0.0-1.0); Blood Urea Nitrogen 17 mg/dL (9-16); Calcium 9.4 mg/dL (8.4-10.2); Carbon Dioxide 26 mmol/L (22-29); Chloride 99 mmol/L (96-108); Creatinine Clr Calc Pharmacy 83.5; Estimated Glomerular Filt Rate 59; Glucose Random 156 mg/dL (60-115); Potassium 3.8 mmol/L (3.3-5.1); Sodium 140 mmol/L (135-145); Total Protein 8.5 g/dL (6.5-8.0)
[2023-09-29] MEDS: methylPREDNISolone Sod Succ 125 MG/2 ML VIAL 60 MG IVPUSH (14:20)
[2023-09-29] MEDS: Oseltamivir Phosphate 75 MG CAPSULE PO ×2 (14:23→21:27)
--- NOTE | 2023-09-29 14:40 | PC.NURSE ---
Addendum entered by Jolynn Lucero RN 09/29/23 14:44: correction, pt sating 91-92% on 5L O2 via NC. respiratory called to place pt on high flow. Original Note: pt a&o x4, pleasant, calm, and cooperative. resting quietly on stretcher in no apparent distress. pt medicated per dec. sating 91% on 3L O2. call arias within pt reach. awaiting admit orders. plan of care ongoing.
--- NOTE | 2023-09-29 15:07 | PC.NURSE ---
Pt placed on CPAP by respiratory, IPAP of 8 32%Fi02.
[2023-09-29 15:16] LABS: Reflex Lactate? Lactic Acid Added
--- NOTE | 2023-09-29 15:16 | PHA.MEDREC ---
Pharmacy Consult ? Medication Reconciliation Pharmacy has completed the medication reconciliation. Spoke with patient's daughter to confirm medications. Asha Teixeira, GamalD
[2023-09-29 17:05] LABS: VBG Base Excess 5.6 mmol/L; VBG HCO3 29 mmol/L (22-26); VBG pCO2 37 mmHg; VBG pH 7.49 (7.32-7.43); VBG pO2 87 mmHg
[2023-09-29 17:06] LABS: Venous Blood Gas Refer to POC result
[2023-09-29 17:27] LABS: ~Lactic Acid-LAB USE ONLY 2.7 mmol/L (0.5-2.0)
[2023-09-29 18:58] LABS: Reflex Lactate? 2 Y
--- NOTE | 2023-09-29 19:14 | PC.NURSE ---
fungal rash noted to pt's groin area/underneath belly flap. area malodorous and bright red. appears very irritated. oncoming RN, Kalee aware.
--- NOTE | 2023-09-29 19:38 | P.HPHOSP_ITS ---
History of Present Illness Date of Service: 09/29/23 Attending physician on admission: Demarco Escobar Chief Complaint: Dizziness, near syncopy Pt is a 68-year-old male with a PMH significant for?HTN, HLD, CVA in 2019, [id number] diabetes type 2, pulmonary arterial hypertension, HFpEF, gout, and LALI on CPAP at night who presents to the ED for evaluation for weakness and syncopal episode at home. Patient states earlier this afternoon he had a to go to the bathroom, felt lightheaded and dizzy, and then ?blacked out? and fell to the floor. Syncopal episode lasted for greater than 5 minutes. Patient awoke but felt weak and lactose strength to pull himself up. called EMS. Patient states that he had 2-3 other presyncopal episodes earlier in the day, and wanted to presyncopal episodes yesterday. Has felt generally unwell for the past 4 days with subjective fever and chills, and persistent cough productive of whitish sputum. Reports he has not been able to sleep at night for the past 2 days because of coughing. Denies chest pain, pressure, palpitations. No shortness of breath. Denies nausea or vomiting or abdominal pain. Patient also notes he has had a red rash in his groin for the past week or so. In the ED pt was afebrile, but tachypneic up with 24, hypertensive up to 166/82, and hypoxic satting at 87% on RA which improved to 92% on 5 L NC. Labs were significant for patient testing positive for influenza type a, lactic acid 2.6 with repeat 2.7, otherwise grossly unremarkable. CXR limited due to body habitus, but negative for definite consolidations or failure. EKG demonstrated sinus rhythm with first-degree AV block and occasional PVCs. Pt was treated with Solu-Medrol, Tamiflu, and DuoNebs. Pt will be admitted to the hospital for treatment and further evaluation of acute hypoxic respiratory failure in the setting of influenza infection. [facility] Medical History Screening PSA (prostate specific antigen) Elevated serum creatinine Morbid obesity Right heart failure Leg pain FOREST (acute kidney injury) Leukocytosis LALI (obstructive sleep apnea) Hyperlipidemia HTN (hypertension) Diastolic heart failure Newly diagnosed diabetes Acute gout of left foot Chronic fatigue Pulmonary arterial hypertension Cerebrovascular accident (CVA) Family History Father Blood clot in vein Mother Cancer Surgical History Hx of shoulder surgery No pertinent past surgical history Social History Household Members: Spouse Housing: Apartment Do you presently have visiting nurse or other home services: No Years Smoked: nonsmoker Smoked in Last 30 Days: No Use of substances other than those prescribed or required for medical reasons: No Advance Directives: Yes Advance Directives on File: Yes Advance Directives Date on File: 12/03/20 service: No Current occupational status: unemployed Meds Allergies Allergy/AdvReac Type Severity Reaction Status Date / Time No Known Allergies Allergy Verified 06/23/23 09:05 Home Medications Medication Instructions Recorded Confirmed Last Taken Type aspirin 81 mg chewable tablet 81 mg PO DAILY 09/29/23 09/29/23 09/29/23 History Physical Exam 2 Vital Signs and Narrative: Vital Signs: Last Vital Signs Temp 97.6 F 09/29/23 12:47 Pulse 63 09/29/23 19:33 Resp 22 H 09/29/23 19:33 BP 154/92 H 09/29/23 19:33 Pulse Ox 92 09/29/23 19:33 O2 Del Method BiPAP 09/29/23 19:33 O2 Flow Rate 6 09/29/23 19:33 Oxygen Flow Rate 5 09/29/23 12:47 BMI result Body Mass Index 55.0 Constitutional: Alert, in no acute distress. Mental Status: Oriented to person, place and time. Eyes: Pupils are equal, round, and reactive to light. Ear, Nose, and Throat: Oropharynx clear, mucous membranes moist. Ears and nose without deformities. Trachea midline. Respiratory: Diffuse bilateral wheezing. Cardiovascular: S1, S2 regular. No murmurs, rubs, or gallops. Gastrointestinal: Abdomen soft, non-tender, non-distended, obese. Normal bowel sounds. Neurologic: Cranial nerves II-XII are grossly intact bilaterally. No focal neurological deficits. Moves all extremities spontaneously. Skin: Widespread erythema with satellite lesions in pelvis and intertriginous folds. Musculoskeletal: No cyanosis or clubbing. Extremities: Bilateral nonpitting edema. Psychiatric: Normal mood and affect. Results Labs 09/29/23 13:13 09/29/23 13:12 Labs: Laboratory Results - last 24 hr 09/29/23 09/29/23 09/29/23 12:54 13:12 13:13 MCV 88.5 MCH 27.4 MCHC 31.0 RDW 15.9 Plt Count 216 MPV 9.5 Immature Gran % (Auto) 0.8 H Neut % (Auto) 85.5 H Lymph % (Auto) 5.8 L [place] % (Auto) 7.8 Eos % (Auto) 0.0 Baso % (Auto) 0.1 Lymph # (Auto) 0.5 L [place] # (Auto) 0.7 Eos # (Auto) 0.0 Baso # (Auto) 0.0 Abs Immat Gran (auto) 0.07 H Absolute Neuts (auto) 7.7 Absolute Nucleated RBC 0.000 Nucleated RBC % (auto) 0.0 PT 12.2 INR 1.0 APTT 29.4 VBG pH VBG pCO2 VBG pO2 VBG HCO3 VBG O2 Saturation VBG Base Excess Anion Gap 19 Estim Creat Clear Calc 83.5 Estimated GFR 59 Random Glucose 156 H Lactic Acid 2.6 H* Lactic Acid F/U @ 2Hr Calcium 9.4 Total Bilirubin 0.4 Direct Bilirubin 0.2 AST 39 H ALT 26 Alkaline Phosphatase 97 Total Protein 8.5 H Albumin 4.0 Influenza Type A (PCR) POSITIVE A Influenza Type B (PCR) NEGATIVE RSV RNA Qual (PCR) NEGATIVE SARS-CoV-2 RNA (RT-PCR) NEGATIVE 09/29/23 09/29/23 16:54 16:58 MCV MCH MCHC RDW Plt Count MPV Immature Gran % (Auto) Neut % (Auto) Lymph % (Auto) [place] % (Auto) Eos % (Auto) Baso % (Auto) Lymph # (Auto) [place] # (Auto) Eos # (Auto) Baso # (Auto) Abs Immat Gran (auto) Absolute Neuts (auto) Absolute Nucleated RBC Nucleated RBC % (auto) PT INR APTT VBG pH 7.49 H VBG pCO2 37 VBG pO2 87 VBG HCO3 29 H VBG O2 Saturation 96.0 VBG Base Excess 5.6 Anion Gap Estim Creat Clear Calc Estimated GFR Random Glucose Lactic Acid Lactic Acid F/U @ 2Hr 2.7 H* Calcium Total Bilirubin Direct Bilirubin AST ALT Alkaline Phosphatase Total Protein Albumin Influenza Type A (PCR) Influenza Type B (PCR) RSV RNA Qual (PCR) SARS-CoV-2 RNA (RT-PCR) Imaging Radiologist's Impressions: Impressions Chest X-Ray 09/29/23 12:53 IMPRESSION: Limited study. No definite consolidations or failure. Assessment and Plan (1) Acute hypoxic respiratory failure: Status: Acute (2) Influenza: Status: Acute Plan Pt is a 68-year-old male with a PMH significant for?HTN, HLD, CVA, [id number] diabetes type 2, pulmonary arterial hypertension, HFpEF, gout, and LALI on CPAP at night who presents to the ED for evaluation for weakness and syncopal episode at home. Pt will be admitted to the hospital for treatment and further evaluation of acute hypoxic respiratory failure in the setting of influenza infection. Acute hypoxic respiratory failure in the setting of influenza infection Patient found by EMS satting at 87% on RA, patient without COPD or asthma, not on home O2 Will treat with Tamiflu, DuoNebs, Solu-Medrol, benzonatate Titrate supplemental O2>92, wean as tolerated Monitor respiratory status Elevated lactic acid Secondary to albuterol use and hypoxia, not sepsis No indication of bacterial infection Candidiasis in groin and intertriginous folds Treat with clotrimazole and nystatin cream b.i.d. LALI CPAP at night HFpEF Not in acute exacerbation Continue home Lasix HTN Continue lisinopril Non-insulin dependent diabetes type 2 Hold metformin Sliding scale insulin Diabetic diet Hx of CVA Continue aspirin, statin Hx of gout Continue allopurinol Obesity class 3 Encourage weight loss DNR/DNI Attending:?Dr. Escobar DVT Prophylaxis: Lovenox Pt will require a hospitalization of at least two nights for treatment of?acute hypoxic respiratory failure in the setting of influenza infection. Given patient's comorbidities including heart failure, diabetes, and obesity, the patient will require at least 48 hours of managed care to treat with supplemental oxygen, IV steroids, breathing treatments, and close monitoring of respiratory status. Quality Stroke Does the patient have a stroke diagnosis?: No VTE Prior VTE?: No VTE Risk Level:: Medical - moderate - high VTE Device Contraindication: Treatment Not Indicated VTE Drug Contraindication: N/A - Med Ordered
--- NOTE | 2023-09-29 20:07 | PC.NURSE ---
Pts daughter, Kelli, called for an update. Update provided with pts approval. Hospitalist at bedside.
[2023-09-29 21:24] LABS: Glucose, Whole Blood 159 mg/dL (60-115)
[2023-09-29] MEDS: Enoxaparin Sodium 40 MG/0.4 ML SYRINGE SUBCUT (21:27)
[2023-09-29] MEDS: allopurinoL 300 MG TABLET PO (21:27)
[2023-09-29] MEDS: Insulin Lispro 100 UNIT/ML 3 ML VIAL SUBCUT (21:27)
[2023-09-29] MEDS: DULoxetine HCl 30 MG CAPSULE.DR PO (21:27)
[2023-09-29] MEDS: Clotrimazole 1 % Cream 15 GM TUBE 1 APPL TOPICAL (21:28)
[2023-09-29] MEDS: Nystatin Cream 15 GM TUBE 1 APPL TOPICAL (21:28)
[2023-09-29 21:46] LABS: Cancel Lactic Acid Canceled
[2023-09-29] MEDS: 0.9 % Sodium Chloride Flush 3 ML SYRINGE IVFLUSH (23:52)
[2023-09-30] VITALS (12 sets, daily range): BP systolic 130–161; BP diastolic 71–91; PULSE 61–91; RESP 16–22; TEMP 36.2–36.8; O2SAT 92–96; BMI 53.7
[2023-09-30] MEDS: methylPREDNISolone Sod Succ 40 MG/ML VIAL IVPUSH ×2 (02:21→13:34)
[2023-09-30 07:09] LABS: Glucose, Whole Blood 145 mg/dL (60-115)
[2023-09-30] MEDS: Albuterol/Iprat 2.5/0.5MG 3 ML AMPUL.NEB INHALE ×4 (07:12→20:06)
[2023-09-30] MEDS: 0.9 % Sodium Chloride Flush 3 ML SYRINGE IVFLUSH ×3 (07:18→20:54)
[2023-09-30 09:12] LABS: Glucose, Whole Blood 172 mg/dL (60-115)
--- NOTE | 2023-09-30 09:25 | P.PNIM_ITS ---
Subjective Subjective Date of Service: 09/30/23 Interval History: Seen and evaluated this morning Feeling weak denies fever or chills On O2 supplement Review of Systems Review of Systems: Yes all other systems are reviewed and are negative Physical Exam 2 Vital Signs: Vital Signs: Last Vital Signs Temp 97.1 F 09/30/23 09:15 Pulse 75 09/30/23 09:15 Resp 17 09/30/23 09:15 BP 139/71 09/30/23 09:15 Pulse Ox 92 09/30/23 09:15 O2 Del Method Nasal Cannula 09/30/23 09:15 O2 Flow Rate 4.0 09/30/23 09:15 Oxygen Flow Rate 5 09/29/23 12:47 BMI result Body Mass Index 53.7 Const: Other: Constitutional : Awake, interactive, morbid obese, not in distress Neck : Normal inspection, Supple Cardiovascular : RRR, no JVP, no lower extremity edema Respiratory : fair bilateral air entry, no crackles, scattered wheezes Gastrointestinal: soft, lax, Normal bowel sounds, Non tender Skin : Warm, Dry Neurological : Alert & oriented x3, No focal deficit Objective Data Active Medications Acetaminophen (Acetaminophen 325 Mg Tablet) 650 mg PO Q6H PRN PRN Reason: Pain, Mild (Pain Scale 1-3) Albuterol/Ipratropium (Albuterol/Iprat 2.5/0.5mg 3 Ml Ampul.Neb) 3 ml INHALE RQ4H WHILE AWAKE [facility] Last Admin: 09/30/23 07:12 Dose: 3 ml Documented By: NATALIE Allopurinol (Allopurinol 300 Mg Tablet) 300 mg PO BID [facility] Last Admin: 09/29/23 21:27 Dose: 300 mg Documented By: TIGIST Aspirin (Aspirin 81 Mg Tab.Chew) 81 mg PO DAILY [facility] Atorvastatin Calcium (Atorvastatin Calcium 80 Mg Tablet) 80 mg PO DAILY [facility] Benzonatate (Benzonatate 100 Mg Capsule) 100 mg PO TID PRN PRN Reason: Cough Clotrimazole (Clotrimazole 1 % Cream 15 Gm Tube) 1 appl TOPICAL BID [facility]; Protocol Last Admin: 09/29/23 21:28 Dose: 1 appl Documented By: TIGIST Dextrose (Dextrose 50 % 25 Gm/50 Ml Syringe) 25 gm IVPUSH Q15M PRN; Protocol PRN Reason: per Hypoglycemia Standing Ord. Docusate Sodium (Docusate Sodium 100 Mg Capsule) 100 mg PO DAILY PRN PRN Reason: Constipation Duloxetine HCl (Duloxetine Hcl 30 Mg Capsule.Dr) 30 mg PO BID [facility] Last Admin: 09/29/23 21:27 Dose: 30 mg Documented By: TIGIST Enoxaparin Sodium (Enoxaparin Sodium 40 Mg/0.4 Ml Syringe) 40 mg SUBCUT Q24H [facility] Last Admin: 09/29/23 21:27 Dose: 40 mg Documented By: TIGIST Furosemide (Furosemide 40 Mg Tablet) 40 mg PO DAILY [facility]; Protocol Glucose (Glucose Gel 15 Gm Gel..Gram.) 15 gm PO Q15M PRN; Protocol PRN Reason: per Hypoglycemia Standing Ord. Insulin Human Lispro (Insulin Lispro 100 Unit/Ml 3 Ml Vial) 0 unit SUBCUT QIDACHS [facility]; Protocol Last Admin: 09/30/23 07:07 Dose: Not Given Documented By: WHITNEY Non-Admin Reason: No Insulin Coverage Lisinopril (Lisinopril 40 Mg Tablet) 40 mg PO DAILY [facility]; Protocol Magnesium Oxide (Magnesium Oxide 400 Mg Tablet) 400 mg PO DAILY [facility] Melatonin (Melatonin 3 Mg Tablet) 6 mg PO BEDTIME PRN PRN Reason: Insomnia Methylprednisolone Sodium Succinate (Methylprednisolone Sod Succ 40 Mg/Ml Vial) 40 mg IVPUSH Q12H [facility] Last Admin: 09/30/23 02:21 Dose: 40 mg Documented By: TIGIST Nystatin (Nystatin Cream 15 Gm Tube) 1 appl TOPICAL BID [facility]; Protocol Last Admin: 09/29/23 21:28 Dose: 1 appl Documented By: TIGIST Ondansetron HCl (Ondansetron Hcl 4 Mg/2 Ml Vial) 4 mg IVPUSH Q8H PRN PRN Reason: Nausea and Vomiting Oseltamivir Phosphate (Oseltamivir Phosphate 75 Mg Capsule) 75 mg PO Q12H [facility] Stop: 10/04/23 09:01 Last Admin: 09/29/23 21:27 Dose: 75 mg Documented By: TIGIST Sodium Chloride (0.9 % Sodium Chloride Flush 3 Ml Syringe) 3 ml IVFLUSH QSHIFT [facility] Last Admin: 09/30/23 07:18 Dose: 3 ml Documented By: WHITNEY Labs 09/29/23 13:13 09/29/23 13:12 Labs: Laboratory Results - last 24 hr 09/29/23 09/29/23 09/29/23 12:54 13:12 13:13 MCV 88.5 MCH 27.4 MCHC 31.0 RDW 15.9 Plt Count 216 MPV 9.5 Immature Gran % (Auto) 0.8 H Neut % (Auto) 85.5 H Lymph % (Auto) 5.8 L [place] % (Auto) 7.8 Eos % (Auto) 0.0 Baso % (Auto) 0.1 Lymph # (Auto) 0.5 L [place] # (Auto) 0.7 Eos # (Auto) 0.0 Baso # (Auto) 0.0 Abs Immat Gran (auto) 0.07 H Absolute Neuts (auto) 7.7 Absolute Nucleated RBC 0.000 Nucleated RBC % (auto) 0.0 PT 12.2 INR 1.0 APTT 29.4 VBG pH VBG pCO2 VBG pO2 VBG HCO3 VBG O2 Saturation VBG Base Excess Anion Gap 19 Estim Creat Clear Calc 83.5 Estimated GFR 59 POC Glucose Random Glucose 156 H Lactic Acid 2.6 H* Lactic Acid F/U @ 2Hr Calcium 9.4 Total Bilirubin 0.4 Direct Bilirubin 0.2 AST 39 H ALT 26 Alkaline Phosphatase 97 Total Protein 8.5 H Albumin 4.0 Influenza Type A (PCR) POSITIVE A Influenza Type B (PCR) NEGATIVE RSV RNA Qual (PCR) NEGATIVE SARS-CoV-2 RNA (RT-PCR) NEGATIVE 09/29/23 09/29/23 09/29/23 16:54 16:58 21:21 MCV MCH MCHC RDW Plt Count MPV Immature Gran % (Auto) Neut % (Auto) Lymph % (Auto) [place] % (Auto) Eos % (Auto) Baso % (Auto) Lymph # (Auto) [place] # (Auto) Eos # (Auto) Baso # (Auto) Abs Immat Gran (auto) Absolute Neuts (auto) Absolute Nucleated RBC Nucleated RBC % (auto) PT INR APTT VBG pH 7.49 H VBG pCO2 37 VBG pO2 87 VBG HCO3 29 H VBG O2 Saturation 96.0 VBG Base Excess 5.6 Anion Gap Estim Creat Clear Calc Estimated GFR POC Glucose 159 H Random Glucose Lactic Acid Lactic Acid F/U @ 2Hr 2.7 H* Calcium Total Bilirubin Direct Bilirubin AST ALT Alkaline Phosphatase Total Protein Albumin Influenza Type A (PCR) Influenza Type B (PCR) RSV RNA Qual (PCR) SARS-CoV-2 RNA (RT-PCR) 09/30/23 09/30/23 07:06 09:00 MCV MCH MCHC RDW Plt Count MPV Immature Gran % (Auto) Neut % (Auto) Lymph % (Auto) [place] % (Auto) Eos % (Auto) Baso % (Auto) Lymph # (Auto) [place] # (Auto) Eos # (Auto) Baso # (Auto) Abs Immat Gran (auto) Absolute Neuts (auto) Absolute Nucleated RBC Nucleated RBC % (auto) PT INR APTT VBG pH VBG pCO2 VBG pO2 VBG HCO3 VBG O2 Saturation VBG Base Excess Anion Gap Estim Creat Clear Calc Estimated GFR POC Glucose 145 H 172 H Random Glucose Lactic Acid Lactic Acid F/U @ 2Hr Calcium Total Bilirubin Direct Bilirubin AST ALT Alkaline Phosphatase Total Protein Albumin Influenza Type A (PCR) Influenza Type B (PCR) RSV RNA Qual (PCR) SARS-CoV-2 RNA (RT-PCR) Assessment and Plan (1) Acute hypoxic respiratory failure: Status: Acute (2) Hypoxia: Status: Acute (3) Influenza: Status: Acute (4) Syncope: Status: Acute Plan Pt is a 68-year-old male with a PMH significant for?HTN, HLD, CVA, [id number] diabetes type 2, pulmonary arterial hypertension, HFpEF, gout, and LALI on CPAP at night who presents to the ED for evaluation for weakness and syncopal episode at home. Pt will be admitted to the hospital for treatment and further evaluation of acute hypoxic respiratory failure in the setting of influenza infection. Acute on chronic hypoxic respiratory failure in the setting of influenza infection on home O2 Continue Tamiflu DuoNebs, Solu-Medrol, benzonatate Titrate supplemental O2>92, wean as tolerated Syncope Orthostatic vs vasovagal check Ortho vitals PT, Tele, monitor Elevated lactic acid Secondary to albuterol use and hypoxia, not sepsis No indication of bacterial infection Candidiasis in groin and intertriginous folds Treat with clotrimazole and nystatin cream b.i.d. LALI CPAP at night HFpEF Not in acute exacerbation Continue home Lasix HTN Continue lisinopril Non-insulin dependent diabetes type 2 Hold metformin Sliding scale insulin Diabetic diet Hx of CVA Continue aspirin, statin Hx of gout Continue allopurinol Obesity class 3 Encourage weight loss DNR/DNI Attending:?Dr. Escobar DVT Prophylaxis: Lovenox Pt will require a hospitalization overnight for treatment of?acute hypoxic respiratory failure in the setting of influenza infection. Given patient's comorbidities including heart failure, diabetes, and obesity, the patient will require at least 48 hours of managed care to treat with supplemental oxygen, IV steroids, breathing treatments, and close monitoring of respiratory status. Quality Stroke Does the patient have a stroke diagnosis?: No VTE Prior VTE?: No VTE Risk Level:: Medical - moderate - high VTE Device Contraindication: Treatment Not Indicated VTE Drug Contraindication: N/A - Med Ordered
--- NOTE | 2023-09-30 09:48 | MHC.CM.PN ---
IMM 09/30/23 Male 68 DX Hypoxia Flu. He lives with his gr dtr + M-I-L. Patient uses a walker. He has a shower bench and his assists. He wears home oxygen at night. 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 DP Home with NA. Patients will provide transportation home.
[2023-09-30] MEDS: lisinopriL 40 MG TABLET PO (09:49)
[2023-09-30] MEDS: DULoxetine HCl 30 MG CAPSULE.DR PO ×2 (09:49→20:46)
[2023-09-30] MEDS: Nystatin Cream 15 GM TUBE 1 APPL TOPICAL (09:49)
[2023-09-30] MEDS: Oseltamivir Phosphate 75 MG CAPSULE PO ×2 (09:49→20:45)
[2023-09-30] MEDS: Aspirin 81 MG TAB.CHEW PO (09:49)
[2023-09-30] MEDS: allopurinoL 300 MG TABLET PO ×2 (09:49→20:46)
[2023-09-30] MEDS: Clotrimazole 1 % Cream 15 GM TUBE 1 APPL TOPICAL ×2 (09:49→20:46)
[2023-09-30] MEDS: Atorvastatin Calcium 80 MG TABLET PO (09:49)
[2023-09-30] MEDS: Magnesium Oxide 400 MG TABLET PO (09:49)
[2023-09-30] MEDS: Furosemide 40 MG TABLET PO (09:49)
[2023-09-30 11:24] LABS: Glucose, Whole Blood 154 mg/dL (60-115)
[2023-09-30] MEDS: Insulin Lispro 100 UNIT/ML 3 ML VIAL SUBCUT ×3 (11:58→21:02)
--- NOTE | 2023-09-30 15:25 | HO.WOUND ---
Wound Consult: Initial 68yr old male admitted to [facility] on?09/29/23 20:22 - See progress notes and H&P for detailed history. Wound consult placed for abdominal fold and groin fungal dermatitis noted - antifungal cream in place. Arrival to bedside pt was agreeable to assessment and photo documentation. Pt reports no incontinence but given his inverted penis he does dribble and have moist skin at times. Underwear on was assessed to be moist and urine odor noted. Pt agreeable to removing. Skin folds assessed and detailed below - significant yeast odor noted. Routine cleaning performed, penis noted to be inverted. Skin folds noted for MASD and Fungal Dermatitis - bases of fold intact no open lesions noted. Currently in place is antifungal cream - over all the tissue and skin folds appear moist - I recommend we switch to powder antifungal treatment as this will help translocate the excess moisture between the folds and occasional incontinence. through cleansing provided and antifungal cream applied pending powder order by provider. Interdry applied to aid in transolcating moisture away from skin fold. Abdominal, groin and thigh skin folds Etiology: ??Fungal Dermatitis and MASD (Moisture Associated Skin Damage) Wound Bed: Mirroed red pink erythema no open lesions at base of skin fold, satellite lesions noted with advancing boarders Drainage / Odor: significant yeast odor noted Edges: ? Mirrored and advancing [place] wound: No Induration, No Fluctuance and No Warmth noted Pain: Pt denies pain reports mild itching Goals of Treatment: ? convert antifungal cream to powder to aid in translocating moisture as there are no open lesions noted at this time. -Interdry application Recommendations: 1. Monitor for incontinence and moisture control, use barrier creams when needed for prevention and treatment. 2. Order low air loss mattress. 3. Maintain blood glucose levels per Providers orders. 4. Abdominal, Groin and Thigh Skin Folds - Cleanse with PH balance wipes, pat dry with soft cloth.? Apply antifungal power to assist with moisture management.? Be sure to dust of excess powder to prevent caking on skin and in folds. Apply per provider orders -twice daily. Tuck Interdry AG Sheet into skin fold to wick and translocate moisture away from skin fold.? Be sure to leave at least 2 inch of fabric exposed outside of skin fold.? Change when soiled. Re-consult wound care Nurse for wound deterioration or wound changes.
[2023-09-30 16:44] LABS: Glucose, Whole Blood 166 mg/dL (60-115)
[2023-09-30] MEDS: Nystatin Powder 15 GM BOTTLE 1 APPL TOPICAL (20:47)
[2023-09-30] MEDS: Enoxaparin Sodium 40 MG/0.4 ML SYRINGE SUBCUT (20:47)
[2023-09-30 21:01] LABS: Glucose, Whole Blood 166 mg/dL (60-115)
[2023-10-01] VITALS (11 sets, daily range): BP systolic 142–177; BP diastolic 67–80; PULSE 72–116; RESP 16–18; TEMP 36–36.4; O2SAT 91–95
[2023-10-01] MEDS: methylPREDNISolone Sod Succ 40 MG/ML VIAL IVPUSH ×2 (01:47→14:33)
[2023-10-01 06:46] LABS: Hematocrit 45.5 % (42.0-52.0); Hemoglobin 13.9 g/dl (14.0-18.0); Mean Corpuscular HGB Conc 30.5 g/dl (31.0-36.0); Mean Corpuscular Hemoglobin 28.2 pg (27.0-33.0); Mean Corpuscular Volume 92.3 fL (80.0-98.0); Mean Platelet Volume 10.7 fL (9.4-12.4); Platelet Count 238 X10*3/uL (160-400); Red Blood Count 4.93 X10*6/uL (4.60-5.80); Red Cell Distribution Width 16.2 % (11.0-16.0); White Blood Count 15.9 X10*3/uL (4.8-10.8)
[2023-10-01 07:38] LABS: Glucose, Whole Blood 181 mg/dL (60-115)
[2023-10-01] MEDS: 0.9 % Sodium Chloride Flush 3 ML SYRINGE IVFLUSH ×2 (07:57→14:33)
[2023-10-01] MEDS: allopurinoL 300 MG TABLET PO (07:58)
[2023-10-01] MEDS: Oseltamivir Phosphate 75 MG CAPSULE PO ×2 (07:58→20:43)
[2023-10-01] MEDS: Insulin Lispro 100 UNIT/ML 3 ML VIAL SUBCUT ×4 (07:58→20:43)
[2023-10-01] MEDS: Furosemide 40 MG TABLET PO (07:59)
[2023-10-01] MEDS: lisinopriL 40 MG TABLET PO (07:59)
[2023-10-01] MEDS: Atorvastatin Calcium 80 MG TABLET PO (07:59)
[2023-10-01] MEDS: DULoxetine HCl 30 MG CAPSULE.DR PO ×2 (07:59→20:43)
[2023-10-01] MEDS: Aspirin 81 MG TAB.CHEW PO (07:59)
[2023-10-01] MEDS: Magnesium Oxide 400 MG TABLET PO (07:59)
[2023-10-01] MEDS: Clotrimazole 1 % Cream 15 GM TUBE 1 APPL TOPICAL ×2 (08:00→20:45)
[2023-10-01] MEDS: Nystatin Powder 15 GM BOTTLE 1 APPL TOPICAL ×2 (08:00→20:45)
[2023-10-01] MEDS: Albuterol/Iprat 2.5/0.5MG 3 ML AMPUL.NEB INHALE ×4 (08:09→20:30)
[2023-10-01 09:43] LABS: Anion Gap 17 (12-20); Blood Urea Nitrogen 44 mg/dL (9-16); Calcium 9.6 mg/dL (8.4-10.2); Carbon Dioxide 29 mmol/L (22-29); Chloride 102 mmol/L (96-108); Creatinine Clr Calc Pharmacy 55.5; Estimated Glomerular Filt Rate 37; Glucose Random 194 mg/dL (60-115); Potassium 3.8 mmol/L (3.3-5.1); Sodium 144 mmol/L (135-145)
--- NOTE | 2023-10-01 10:20 | HO.PM.IMPN ---
Subjective Subjective Date of Service: 10/01/23 Interval History: Seen and evaluated this morning Feeling weak and tired Cr increased to 1.8 denies fever or chills On 2L O2 supplement Review of Systems Review of Systems: Yes all other systems are reviewed and are negative Physical Exam Vital Signs: Vital Signs: Last Vital Signs Temp 96.8 F 10/01/23 08:00 Pulse 72 10/01/23 08:09 Resp 17 10/01/23 08:09 BP 142/80 H 10/01/23 08:00 Pulse Ox 92 10/01/23 08:00 O2 Del Method Nasal Cannula 10/01/23 08:00 O2 Flow Rate 4.0 10/01/23 08:00 Oxygen Flow Rate 5 09/29/23 12:47 BMI result Body Mass Index 53.7 Const: Other: Constitutional : Awake, interactive, morbid obese, not in distress Neck : Normal inspection, Supple Cardiovascular : RRR, no JVP, no lower extremity edema Respiratory : fair bilateral air entry, no crackles, scattered wheezes Gastrointestinal: soft, lax, Normal bowel sounds, Non tender Skin : Warm, Dry Neurological : Alert & oriented x3, No focal deficit Objective Data Active Medications Acetaminophen (Acetaminophen 325 Mg Tablet) 650 mg PO Q6H PRN PRN Reason: Pain, Mild (Pain Scale 1-3) Albuterol/Ipratropium (Albuterol/Iprat 2.5/0.5mg 3 Ml Ampul.Neb) 3 ml INHALE RQ4H WHILE AWAKE [facility] Last Admin: 10/01/23 08:09 Dose: 3 ml Documented By: NATALIE Allopurinol (Allopurinol 300 Mg Tablet) 300 mg PO BID [facility] Last Admin: 10/01/23 07:58 Dose: 300 mg Documented By: PATI Aspirin (Aspirin 81 Mg Tab.Chew) 81 mg PO DAILY [facility] Last Admin: 10/01/23 07:59 Dose: 81 mg Documented By: PATI Atorvastatin Calcium (Atorvastatin Calcium 80 Mg Tablet) 80 mg PO DAILY [facility] Last Admin: 10/01/23 07:59 Dose: 80 mg Documented By: PATI Benzonatate (Benzonatate 100 Mg Capsule) 100 mg PO TID PRN PRN Reason: Cough Clotrimazole (Clotrimazole 1 % Cream 15 Gm Tube) 1 appl TOPICAL BID [facility]; Protocol Last Admin: 10/01/23 08:00 Dose: 1 appl Documented By: PATI Dextrose (Dextrose 50 % 25 Gm/50 Ml Syringe) 25 gm IVPUSH Q15M PRN; Protocol PRN Reason: per Hypoglycemia Standing Ord. Docusate Sodium (Docusate Sodium 100 Mg Capsule) 100 mg PO DAILY PRN PRN Reason: Constipation Duloxetine HCl (Duloxetine Hcl 30 Mg Capsule.Dr) 30 mg PO BID [facility] Last Admin: 10/01/23 07:59 Dose: 30 mg Documented By: PATI Enoxaparin Sodium (Enoxaparin Sodium 40 Mg/0.4 Ml Syringe) 30 mg SUBCUT Q24H [facility] Furosemide (Furosemide 40 Mg Tablet) 40 mg PO DAILY [facility]; Protocol Last Admin: 10/01/23 07:59 Dose: 40 mg Documented By: PATI Glucose (Glucose Gel 15 Gm Gel..Gram.) 15 gm PO Q15M PRN; Protocol PRN Reason: per Hypoglycemia Standing Ord. Sodium Chloride (Ns) 1,000 mls @ 100 mls/hr IVCONT .Q10H [facility] Insulin Human Lispro (Insulin Lispro 100 Unit/Ml 3 Ml Vial) 0 unit SUBCUT QIDACHS [facility]; Protocol Last Admin: 10/01/23 07:58 Dose: 2 unit Documented By: PATI Lisinopril (Lisinopril 40 Mg Tablet) 40 mg PO DAILY [facility]; Protocol Last Admin: 10/01/23 07:59 Dose: 40 mg Documented By: PATI Magnesium Oxide (Magnesium Oxide 400 Mg Tablet) 400 mg PO DAILY [facility] Last Admin: 10/01/23 07:59 Dose: 400 mg Documented By: PATI Melatonin (Melatonin 3 Mg Tablet) 6 mg PO BEDTIME PRN PRN Reason: Insomnia Methylprednisolone Sodium Succinate (Methylprednisolone Sod Succ 40 Mg/Ml Vial) 40 mg IVPUSH Q12H [facility] Last Admin: 10/01/23 01:47 Dose: 40 mg Documented By: JACOB Nystatin (Nystatin Powder 15 Gm Bottle) 1 appl TOPICAL BID [facility]; Protocol Last Admin: 10/01/23 08:00 Dose: 1 appl Documented By: PATI Ondansetron HCl (Ondansetron Hcl 4 Mg/2 Ml Vial) 4 mg IVPUSH Q8H PRN PRN Reason: Nausea and Vomiting Oseltamivir Phosphate (Oseltamivir Phosphate 75 Mg Capsule) 75 mg PO Q12H [facility] Stop: 10/04/23 09:01 Last Admin: 10/01/23 07:58 Dose: 75 mg Documented By: PATI Sodium Chloride (0.9 % Sodium Chloride Flush 3 Ml Syringe) 3 ml IVFLUSH QSHIFT [facility] Last Admin: 10/01/23 07:57 Dose: 3 ml Documented By: PATI Labs 10/01/23 06:21 10/01/23 09:00 Labs: Laboratory Results - last 24 hr 09/30/23 09/30/23 09/30/23 11:18 16:41 20:53 MCV MCH MCHC RDW Plt Count MPV Absolute Nucleated RBC Nucleated RBC % (auto) Hold Purple Top Anion Gap Estim Creat Clear Calc Estimated GFR POC Glucose 154 H 166 H 166 H Random Glucose Calcium 10/01/23 10/01/23 10/01/23 06:21 07:28 09:00 MCV 92.3 MCH 28.2 MCHC 30.5 L RDW 16.2 H Plt Count 238 MPV 10.7 Absolute Nucleated RBC 0.000 Nucleated RBC % (auto) 0.0 Hold Purple Top SEE NOTE Anion Gap 17 Estim Creat Clear Calc 55.5 Estimated GFR 37 POC Glucose 181 H Random Glucose 194 H Calcium 9.6 Microbiology Microbiology Results: Microbiology 09/29/23 13:25 Blood Culture - Preliminary Blood - Venous No growth after 24 hours. 09/29/23 13:12 Blood Culture - Preliminary Blood - Venous No growth after 24 hours. Assessment and Plan (1) Acute hypoxic respiratory failure: Status: Acute (2) Syncope: Status: Acute Plan Pt is a 68-year-old male with a PMH significant for?HTN, HLD, CVA, [id number] diabetes type 2, pulmonary arterial hypertension, HFpEF, gout, and LALI on CPAP at night who presents to the ED for evaluation for weakness and syncopal episode at home. Pt will be admitted to the hospital for treatment and further evaluation of acute hypoxic respiratory failure in the setting of influenza infection. Acute on chronic hypoxic respiratory failure in the setting of influenza infection On home O2 Continue Tamiflu 09/29 DuoNebs, Solu-Medrol, benzonatate Titrate supplemental O2>92, wean as tolerated FOREST on CKD3 Cr of 1.8 Hold nephrotoxic medications; Lisinopril, Allopurinol and lasix IVF monitor I\O follow BMP Syncope Orthostatic vs vasovagal check Ortho vitals PT, Tele, monitor Elevated lactic acid Secondary to albuterol use and hypoxia, not sepsis No indication of bacterial infection Candidiasis in groin and intertriginous folds Treat with clotrimazole and nystatin cream b.i.d. LALI CPAP at night HFpEF Not in acute exacerbation Continue home Lasix HTN Continue lisinopril Non-insulin dependent diabetes type 2 Hold metformin Sliding scale insulin Diabetic diet Hx of CVA Continue aspirin, statin Hx of gout Continue allopurinol Obesity class 3 Encourage weight loss DNR/DNI DVT Prophylaxis: Lovenox Pt will require a hospitalization overnight for treatment of?acute hypoxic respiratory failure in the setting of influenza infection. Given patient's comorbidities including heart failure, diabetes, and obesity, the patient will require at least 48 hours of managed care to treat with supplemental oxygen, IV steroids, breathing treatments, and close monitoring of respiratory status. Quality Stroke Does the patient have a stroke diagnosis?: No VTE Prior VTE?: No VTE Risk Level:: Medical - moderate - high VTE Device Contraindication: Treatment Not Indicated VTE Drug Contraindication: N/A - Med Ordered
[2023-10-01] MEDS: 0.9 % Sodium Chloride 1,000 ML 100 ML IVCONT ×2 (11:14→20:43)
[2023-10-01] MEDS: Enoxaparin Sodium 30 MG/0.3 ML SYRINGE SUBCUT (11:14)
[2023-10-01 11:37] LABS: Glucose, Whole Blood 165 mg/dL (60-115)
--- NOTE | 2023-10-01 12:32 | P.CDIM_ITS ---
PROVIDER RESPONSE TEXT: To clarify, the appropriate diagnosis supported by the clinical indicators: Acute Lactic Acidosis QUERY TEXT: >>> Provider Instructions - Do not remove this line >>> PHYSICIAN'S DOCUMENTATION REQUEST Date of Query: 09/30/2023 10:48 AM EST Patient Name: Chuck Card Admit Date: 09/30/2023 Dear Ludmila Orona, A review of the medical record indicates additional documentation may be needed. Please review below and update the documentation accordingly. Clinical Indicators: Lactic Acid on 09/29/23: 2.7 Per Hospitalist Progress Note 09/30/23: Elevated lactic acid Secondary to albuterol use and hypoxia, not sepsis No indication of bacterial infection Based on the above, could you clarify the appropriate diagnosis, if significant, that supports the ab ove abnormalities and additional evaluation, monitoring, and/or treatment rendered: <<< Provider Instructions - Do not remove this line <<< Acute Lactic Acidosis Labs indicate a diagnosis of (please specify) Other (explain) Clinically unable to determine (explain) >>> Contact Info - Do not remove this line>>> Thank you, Gely García RN Use of terms such as suspected, likely, concern for, or probable (associated with a specific diagnosi s that is being evaluated, monitored, or treated as if it exists) are acceptable and can be coded in the inpatient se tting, when documented at the time of discharge. Please use your independent medical judgment in providing your response. THIS QUERY IS PART OF THE PERMANENT MEDICAL RECORD <<< Contact Info - Do not remove this line <<< >>> Disclaimer - Do no remove this line>>> Extension: [phone] <<< Disclaimer - Do not remove this line<<<
--- NOTE | 2023-10-01 14:48 | MHC.CM.PN ---
Addendum entered by Rina Venegas 10/01/23 15:38: [facility] does not have availability until after the holiday. Original Note: DP is STR. [facility] is checking bed availability. [facility] is asking questions. Patient will transport via BLS. CM will continue to follow for discharge.
[2023-10-01 16:27] LABS: Glucose, Whole Blood 169 mg/dL (60-115)
[2023-10-01 19:28] LABS: Glucose, Whole Blood 181 mg/dL (60-115)
[2023-10-02] VITALS (8 sets, daily range): BP systolic 168–198; BP diastolic 60–102; PULSE 74–87; RESP 16–22; TEMP 36.1–36.8; O2SAT 91–95
[2023-10-02] MEDS: methylPREDNISolone Sod Succ 40 MG/ML VIAL IVPUSH (01:39)
[2023-10-02] MEDS: 0.9 % Sodium Chloride 1,000 ML 100 ML IVCONT (06:34)
[2023-10-02 07:44] LABS: Glucose, Whole Blood 179 mg/dL (60-115)
[2023-10-02] MEDS: Magnesium Oxide 400 MG TABLET PO (08:09)
[2023-10-02] MEDS: Insulin Lispro 100 UNIT/ML 3 ML VIAL SUBCUT ×3 (08:09→16:54)
[2023-10-02] MEDS: Atorvastatin Calcium 80 MG TABLET PO (08:09)
[2023-10-02] MEDS: Aspirin 81 MG TAB.CHEW PO (08:09)
[2023-10-02] MEDS: DULoxetine HCl 30 MG CAPSULE.DR PO ×2 (08:10→20:17)
[2023-10-02] MEDS: lisinopriL 20 MG TABLET PO ×2 (08:10→16:17)
[2023-10-02] MEDS: amLODIPine Besylate 5 MG TABLET PO ×2 (08:10→20:17)
[2023-10-02] MEDS: Oseltamivir Phosphate 75 MG CAPSULE PO ×2 (08:10→20:17)
[2023-10-02] MEDS: Clotrimazole 1 % Cream 15 GM TUBE 1 APPL TOPICAL ×2 (08:10→20:17)
[2023-10-02] MEDS: Nystatin Powder 15 GM BOTTLE 1 APPL TOPICAL ×2 (08:10→20:18)
[2023-10-02 08:41] LABS: Anion Gap 16 (12-20); Blood Urea Nitrogen 42 mg/dL (9-16); Calcium 9.1 mg/dL (8.4-10.2); Carbon Dioxide 29 mmol/L (22-29); Chloride 104 mmol/L (96-108); Creatinine Clr Calc Pharmacy 76.7; Estimated Glomerular Filt Rate 54; Glucose Random 175 mg/dL (60-115); Sodium 145 mmol/L (135-145)
[2023-10-02] MEDS: Albuterol/Iprat 2.5/0.5MG 3 ML AMPUL.NEB INHALE ×4 (08:59→20:09)
--- NOTE | 2023-10-02 10:58 | P.PNIM_ITS ---
Subjective Subjective Date of Service: 10/02/23 Interval History: Seen and evaluated this morning Feeling weak overall Cr improved to 1.3 denies fever or chills On 2-3L O2 supplement Review of Systems Review of Systems: Yes all other systems are reviewed and are negative Physical Exam 2 Vital Signs: Vital Signs: Last Vital Signs Temp 97.8 F 10/02/23 07:16 Pulse 87 10/02/23 09:01 Resp 18 10/02/23 09:01 BP 198/102 H 10/02/23 07:16 Pulse Ox 94 10/02/23 07:16 O2 Del Method Nasal Cannula 10/02/23 07:16 O2 Flow Rate 4 10/02/23 07:16 Oxygen Flow Rate 5 09/29/23 12:47 BMI result Body Mass Index 53.7 Const: Other: Constitutional : Awake, interactive, morbid obese, not in distress Neck : Normal inspection, Supple Cardiovascular : RRR, no JVP, no lower extremity edema Respiratory : fair bilateral air entry, no crackles, scattered wheezes Gastrointestinal: soft, lax, Normal bowel sounds, Non tender Skin : Warm, Dry Neurological : Alert & oriented x3, No focal deficit Objective Data Active Medications Acetaminophen (Acetaminophen 325 Mg Tablet) 650 mg PO Q6H PRN PRN Reason: Pain, Mild (Pain Scale 1-3) Albuterol/Ipratropium (Albuterol/Iprat 2.5/0.5mg 3 Ml Ampul.Neb) 3 ml INHALE RQ4H WHILE AWAKE [facility] Last Admin: 10/02/23 08:59 Dose: 3 ml Documented By: KRISTEL Allopurinol (Allopurinol 300 Mg Tablet) 300 mg PO BID [facility] Last Admin: 10/01/23 07:58 Dose: 300 mg Documented By: PATI Aspirin (Aspirin 81 Mg Tab.Chew) 81 mg PO DAILY [facility] Last Admin: 10/02/23 08:09 Dose: 81 mg Documented By: PATI Atorvastatin Calcium (Atorvastatin Calcium 80 Mg Tablet) 80 mg PO DAILY [facility] Last Admin: 10/02/23 08:09 Dose: 80 mg Documented By: PATI Benzonatate (Benzonatate 100 Mg Capsule) 100 mg PO TID PRN PRN Reason: Cough Clotrimazole (Clotrimazole 1 % Cream 15 Gm Tube) 1 appl TOPICAL BID [facility]; Protocol Last Admin: 10/02/23 08:10 Dose: 1 appl Documented By: PATI Dextrose (Dextrose 50 % 25 Gm/50 Ml Syringe) 25 gm IVPUSH Q15M PRN; Protocol PRN Reason: per Hypoglycemia Standing Ord. Docusate Sodium (Docusate Sodium 100 Mg Capsule) 100 mg PO DAILY PRN PRN Reason: Constipation Duloxetine HCl (Duloxetine Hcl 30 Mg Capsule.Dr) 30 mg PO BID [facility] Last Admin: 10/02/23 08:10 Dose: 30 mg Documented By: PATI Enoxaparin Sodium (Enoxaparin Sodium 30 Mg/0.3 Ml Syringe) 30 mg SUBCUT Q24H [facility] Last Admin: 10/01/23 11:14 Dose: 30 mg Documented By: PATI Furosemide (Furosemide 40 Mg Tablet) 40 mg PO DAILY [facility]; Protocol Last Admin: 10/01/23 07:59 Dose: 40 mg Documented By: PATI Glucose (Glucose Gel 15 Gm Gel..Gram.) 15 gm PO Q15M PRN; Protocol PRN Reason: per Hypoglycemia Standing Ord. Sodium Chloride (Ns) 1,000 mls @ 100 mls/hr IVCONT .Q10H [facility] Last Admin: 10/02/23 06:34 Dose: 100 mls/hr Documented By: MARIA FERNANDA Insulin Human Lispro (Insulin Lispro 100 Unit/Ml 3 Ml Vial) 0 unit SUBCUT QIDACHS [facility]; Protocol Last Admin: 10/02/23 08:09 Dose: 2 unit Documented By: PATI Lisinopril (Lisinopril 40 Mg Tablet) 40 mg PO DAILY [facility]; Protocol Last Admin: 10/01/23 07:59 Dose: 40 mg Documented By: PATI Magnesium Oxide (Magnesium Oxide 400 Mg Tablet) 400 mg PO DAILY [facility] Last Admin: 10/02/23 08:09 Dose: 400 mg Documented By: PATI Melatonin (Melatonin 3 Mg Tablet) 6 mg PO BEDTIME PRN PRN Reason: Insomnia Methylprednisolone Sodium Succinate (Methylprednisolone Sod Succ 40 Mg/Ml Vial) 40 mg IVPUSH Q12H [facility] Last Admin: 10/02/23 01:39 Dose: 40 mg Documented By: MARIA FERNANDA Nystatin (Nystatin Powder 15 Gm Bottle) 1 appl TOPICAL BID [facility]; Protocol Last Admin: 10/02/23 08:10 Dose: 1 appl Documented By: PATI Ondansetron HCl (Ondansetron Hcl 4 Mg/2 Ml Vial) 4 mg IVPUSH Q8H PRN PRN Reason: Nausea and Vomiting Oseltamivir Phosphate (Oseltamivir Phosphate 75 Mg Capsule) 75 mg PO Q12H [facility] Stop: 10/04/23 09:01 Last Admin: 10/02/23 08:10 Dose: 75 mg Documented By: PATI Sodium Chloride (0.9 % Sodium Chloride Flush 3 Ml Syringe) 3 ml IVFLUSH QSHIFT [facility] Last Admin: 10/02/23 07:05 Dose: Not Given Documented By: PATI Non-Admin Reason: IV Running Labs 10/01/23 06:21 10/02/23 08:02 Labs: Laboratory Results - last 24 hr 10/01/23 10/01/23 10/01/23 11:33 16:22 19:20 Hold Purple Top Anion Gap Estim Creat Clear Calc Estimated GFR POC Glucose 165 H 169 H 181 H Random Glucose Calcium 10/02/23 10/02/23 07:13 08:02 Hold Purple Top SEE NOTE Anion Gap 16 Estim Creat Clear Calc 76.7 Estimated GFR 54 POC Glucose 179 H Random Glucose 175 H Calcium 9.1 Microbiology Microbiology Results: Microbiology 09/29/23 13:25 Blood Culture - Preliminary Blood - Venous No growth after 48 hours. 09/29/23 13:12 Blood Culture - Preliminary Blood - Venous No growth after 48 hours. Assessment and Plan (1) Influenza: Status: Acute (2) Hypoxia: Status: Acute (3) Syncope: Status: Acute (4) Acute kidney injury superimposed on CKD: Status: Acute Plan Pt is a 68-year-old male with a PMH significant for?HTN, HLD, CVA, [id number] diabetes type 2, pulmonary arterial hypertension, HFpEF, gout, and LALI on CPAP at night who presents to the ED for evaluation for weakness and syncopal episode at home. Pt will be admitted to the hospital for treatment and further evaluation of acute hypoxic respiratory failure in the setting of influenza infection. Acute on chronic hypoxic respiratory failure in the setting of influenza infection On home O2 Continue Tamiflu 09/29 [facility] Solu-Medrol, start Prednisone Titrate supplemental O2>92, wean as tolerated FOREST on CKD3 Cr improved to 1.3 Hold nephrotoxic medications; Lisinopril, Allopurinol and lasix DC IVF monitor I\O follow BMP Elevated HTN restart lisinopril Amlodipine 5 mg once monitor Syncope Orthostatic vs vasovagal normal Ortho vitals PT, Tele, monitor Elevated lactic acid Secondary to albuterol use and hypoxia, not sepsis No indication of bacterial infection Candidiasis in groin and intertriginous folds Treat with clotrimazole and nystatin cream b.i.d. LALI CPAP at night HFpEF Not in acute exacerbation Continue home Lasix Non-insulin dependent diabetes type 2 Hold metformin Sliding scale insulin Diabetic diet Hx of CVA Continue aspirin, statin Hx of gout Continue allopurinol Obesity class 3 Encourage weight loss DNR/DNI DVT Prophylaxis: Lovenox Pt will require a hospitalization overnight for treatment of?acute hypoxic respiratory failure in the setting of influenza infection. Given patient's comorbidities including heart failure, diabetes, and obesity, the patient will require managed care to treat with supplemental oxygen, IV steroids, breathing treatments, and close monitoring of respiratory status. Quality Stroke Does the patient have a stroke diagnosis?: No VTE Prior VTE?: No VTE Risk Level:: Medical - moderate - high VTE Device Contraindication: Treatment Not Indicated VTE Drug Contraindication: N/A - Med Ordered
[2023-10-02 11:14] LABS: Glucose, Whole Blood 193 mg/dL (60-115)
[2023-10-02] MEDS: Enoxaparin Sodium 30 MG/0.3 ML SYRINGE SUBCUT (11:21)
[2023-10-02] MEDS: Acetaminophen 325 MG TABLET 650 MG PO (14:05)
[2023-10-02] MEDS: 0.9 % Sodium Chloride Flush 3 ML SYRINGE IVFLUSH ×2 (15:12→20:17)
[2023-10-02] MEDS: Furosemide 40 MG/4 ML VIAL 20 MG IVPUSH (16:17)
[2023-10-02 16:26] LABS: Glucose, Whole Blood 161 mg/dL (60-115)
[2023-10-02 19:26] LABS: Glucose, Whole Blood 145 mg/dL (60-115)
[2023-10-03] VITALS (14 sets, daily range): BP systolic 155–189; BP diastolic 76–98; PULSE 67–98; RESP 19–31; TEMP 36.3–37; O2SAT 91–98
[2023-10-03] MEDS: Albuterol/Iprat 2.5/0.5MG 3 ML AMPUL.NEB INHALE ×4 (04:01→19:08)
[2023-10-03] MEDS: Furosemide 40 MG/4 ML VIAL IVPUSH (04:38)
[2023-10-03 07:44] LABS: Glucose, Whole Blood 190 mg/dL (60-115)
[2023-10-03] MEDS: Albuterol Sulfate (0.083%) 2.5 MG/3 ML VIAL.NEB 10 MG INHALE (07:49)
[2023-10-03 08:00] LABS: ABG Base Excess 10.2 mmol/L; ABG HCO3 35 mmol/L (22-26); ABG pCO2 48 mmHg (32-45); ABG pH 7.47 (7.35-7.45); ABG pO2 71 mmHg (83-108)
[2023-10-03] MEDS: DULoxetine HCl 30 MG CAPSULE.DR PO ×2 (08:00→21:15)
[2023-10-03] MEDS: Aspirin 81 MG TAB.CHEW PO (08:00)
[2023-10-03] MEDS: Insulin Lispro 100 UNIT/ML 3 ML VIAL SUBCUT ×4 (08:00→21:33)
[2023-10-03] MEDS: predniSONE 20 MG TABLET 40 MG PO (08:01)
[2023-10-03] MEDS: 0.9 % Sodium Chloride Flush 3 ML SYRINGE IVFLUSH ×2 (08:01→21:15)
[2023-10-03] MEDS: Magnesium Oxide 400 MG TABLET PO (08:01)
[2023-10-03] MEDS: amLODIPine Besylate 10 MG TABLET PO (08:01)
[2023-10-03] MEDS: Atorvastatin Calcium 80 MG TABLET PO (08:01)
[2023-10-03] MEDS: Oseltamivir Phosphate 75 MG CAPSULE PO ×2 (08:01→21:15)
[2023-10-03] MEDS: Clotrimazole 1 % Cream 15 GM TUBE 1 APPL TOPICAL ×2 (08:05→22:00)
[2023-10-03] MEDS: Nystatin Powder 15 GM BOTTLE 1 APPL TOPICAL (08:05)
[2023-10-03] MEDS: lisinopriL 40 MG TABLET PO (08:11)
[2023-10-03 08:54] LABS: Anion Gap 15 (12-20); Blood Urea Nitrogen 26 mg/dL (9-16); Carbon Dioxide 30 mmol/L (22-29); Chloride 97 mmol/L (96-108); Creatinine Clr Calc Pharmacy 94.7; Estimated Glomerular Filt Rate > 60; Glucose Random 189 mg/dL (60-115); Potassium 3.4 mmol/L (3.3-5.1); Sodium 139 mmol/L (135-145)
[2023-10-03 09:00] LABS: B Type Natriuretic Peptide 106 pg/mL (<100)
[2023-10-03] MEDS: Azithromycin 500 MG in 0.9 % Sodium Chloride 250 ML 125 MG IV (10:45)
[2023-10-03] MEDS: methylPREDNISolone Sod Succ 125 MG/2 ML VIAL 60 MG IVPUSH (10:46)
[2023-10-03] MEDS: Enoxaparin Sodium 30 MG/0.3 ML SYRINGE SUBCUT (10:46)
[2023-10-03 11:09] LABS: Glucose, Whole Blood 207 mg/dL (60-115)
[2023-10-03 11:16] LABS: ABG Refer to POC result
--- NOTE | 2023-10-03 11:35 | P.PNIM_ITS ---
Subjective Subjective Date of Service: 10/03/23 Interval History: Seen and evaluated this morning Had rough night requiring CPAP and increase O2 supplement Cr improved to 1.0 denies fever or chills or chest pain Review of Systems Review of Systems: Yes all other systems are reviewed and are negative Physical Exam 2 Vital Signs: Vital Signs: Last Vital Signs Temp 97.3 F 10/03/23 07:10 Pulse 96 10/03/23 08:01 Resp 26 H 10/03/23 08:16 BP 189/98 H 10/03/23 07:10 Pulse Ox 91 L 10/03/23 07:10 O2 Del Method BiPAP 10/03/23 07:10 O2 Flow Rate 6 10/03/23 03:32 Oxygen Flow Rate 5 09/29/23 12:47 BMI result Body Mass Index 53.7 Const: Other: Constitutional : Awake, interactive, morbid obese, not in distress Neck : Normal inspection, Supple Cardiovascular : RRR, no JVP, no lower extremity edema Respiratory : decreased bilateral air entry, no crackles, bilateral expiratory wheezes Gastrointestinal: soft, lax, Normal bowel sounds, Non tender Skin : Warm, Dry Neurological : Alert & oriented x3, No focal deficit Objective Data Active Medications Acetaminophen (Acetaminophen 325 Mg Tablet) 650 mg PO Q6H PRN PRN Reason: Pain, Mild (Pain Scale 1-3) Last Admin: 10/02/23 14:05 Dose: 650 mg Documented By: PATI Albuterol/Ipratropium (Albuterol/Iprat 2.5/0.5mg 3 Ml Ampul.Neb) 3 ml INHALE RQ4H WHILE AWAKE [facility] Last Admin: 10/03/23 08:10 Dose: Not Given Documented By: YONIS Non-Admin Reason: given a 10mg albuterol Allopurinol (Allopurinol 300 Mg Tablet) 300 mg PO BID [facility] Last Admin: 10/01/23 07:58 Dose: 300 mg Documented By: PATI Amlodipine Besylate (Amlodipine Besylate 10 Mg Tablet) 10 mg PO DAILY [facility]; Protocol Last Admin: 10/03/23 08:01 Dose: 10 mg Documented By: PATI Aspirin (Aspirin 81 Mg Tab.Chew) 81 mg PO DAILY [facility] Last Admin: 10/03/23 08:00 Dose: 81 mg Documented By: PATI Atorvastatin Calcium (Atorvastatin Calcium 80 Mg Tablet) 80 mg PO DAILY [facility] Last Admin: 10/03/23 08:01 Dose: 80 mg Documented By: PATI Azithromycin (Azithromycin 500 Mg Tablet) 500 mg PO DAILY [facility] Benzonatate (Benzonatate 100 Mg Capsule) 100 mg PO TID PRN PRN Reason: Cough Clotrimazole (Clotrimazole 1 % Cream 15 Gm Tube) 1 appl TOPICAL BID [facility]; Protocol Last Admin: 10/03/23 08:05 Dose: 1 appl Documented By: PATI Dextrose (Dextrose 50 % 25 Gm/50 Ml Syringe) 25 gm IVPUSH Q15M PRN; Protocol PRN Reason: per Hypoglycemia Standing Ord. Docusate Sodium (Docusate Sodium 100 Mg Capsule) 100 mg PO DAILY PRN PRN Reason: Constipation Duloxetine HCl (Duloxetine Hcl 30 Mg Capsule.Dr) 30 mg PO BID [facility] Last Admin: 10/03/23 08:00 Dose: 30 mg Documented By: PATI Enoxaparin Sodium (Enoxaparin Sodium 30 Mg/0.3 Ml Syringe) 30 mg SUBCUT Q24H [facility] Last Admin: 10/03/23 10:46 Dose: 30 mg Documented By: PATI Furosemide (Furosemide 40 Mg Tablet) 40 mg PO DAILY [facility]; Protocol Last Admin: 10/01/23 07:59 Dose: 40 mg Documented By: PATI Glucose (Glucose Gel 15 Gm Gel..Gram.) 15 gm PO Q15M PRN; Protocol PRN Reason: per Hypoglycemia Standing Ord. Azithromycin 500 mg/ Sodium (Chloride) 250 mls @ 125 mls/hr IV ONCE ONE Stop: 10/03/23 11:46 Last Admin: 10/03/23 10:45 Dose: 125 mls/hr Documented By: PATI Insulin Human Lispro (Insulin Lispro 100 Unit/Ml 3 Ml Vial) 0 unit SUBCUT QIDACHS [facility]; Protocol Last Admin: 10/03/23 08:00 Dose: 2 unit Documented By: PATI Lisinopril (Lisinopril 40 Mg Tablet) 40 mg PO DAILY [facility]; Protocol Last Admin: 10/03/23 08:11 Dose: 40 mg Documented By: PATI Magnesium Oxide (Magnesium Oxide 400 Mg Tablet) 400 mg PO DAILY [facility] Last Admin: 10/03/23 08:01 Dose: 400 mg Documented By: PATI Melatonin (Melatonin 3 Mg Tablet) 6 mg PO BEDTIME PRN PRN Reason: Insomnia Methylprednisolone Sodium Succinate (Methylprednisolone Sod Succ 125 Mg/2 Ml Vial) 60 mg IVPUSH Q12H [facility] Last Admin: 10/03/23 10:46 Dose: 60 mg Documented By: PATI Nystatin (Nystatin Powder 15 Gm Bottle) 1 appl TOPICAL BID [facility]; Protocol Last Admin: 10/03/23 08:05 Dose: 1 appl Documented By: PATI Ondansetron HCl (Ondansetron Hcl 4 Mg/2 Ml Vial) 4 mg IVPUSH Q8H PRN PRN Reason: Nausea and Vomiting Oseltamivir Phosphate (Oseltamivir Phosphate 75 Mg Capsule) 75 mg PO Q12H [facility] Stop: 10/04/23 09:01 Last Admin: 10/03/23 08:01 Dose: 75 mg Documented By: PATI Sodium Chloride (0.9 % Sodium Chloride Flush 3 Ml Syringe) 3 ml IVFLUSH QSHIFT [facility] Last Admin: 10/03/23 08:01 Dose: 3 ml Documented By: PATI Labs 10/01/23 06:21 10/03/23 07:55 Labs: Laboratory Results - last 24 hr 10/02/23 10/02/23 10/03/23 16:04 19:18 07:40 Hold Purple Top O2 Saturation ABG pH at Pt Temp ABG pCO2 at Pt Temp ABG pO2 at Pt Temp ABG HCO3 ABG Base Excess (Actual) Anion Gap Estim Creat Clear Calc Estimated GFR POC Glucose 161 H 145 H 190 H Random Glucose Calcium B-Natriuretic Peptide 10/03/23 10/03/23 07:55 11:06 Hold Purple Top SEE NOTE O2 Saturation 95.0 ABG pH at Pt Temp 7.47 H ABG pCO2 at Pt Temp 48 H ABG pO2 at Pt Temp 71 L ABG HCO3 35 H ABG Base Excess (Actual) 10.2 Anion Gap 15 Estim Creat Clear Calc 94.7 Estimated GFR > 60 POC Glucose 207 H Random Glucose 189 H Calcium 9.0 B-Natriuretic Peptide 106 H Assessment and Plan (1) Acute kidney injury superimposed on CKD: Status: Acute (2) Acute hypoxic respiratory failure: Status: Acute (3) Influenza: Status: Acute Plan Pt is a 68-year-old male with a PMH significant for?HTN, HLD, CVA, [id number]-[id number] diabetes type 2, pulmonary arterial hypertension, HFpEF, gout, and LALI on CPAP at night who presents to the ED for evaluation for weakness and syncopal episode at home. Pt will be admitted to the hospital for treatment and further evaluation of acute hypoxic respiratory failure in the setting of influenza infection. Acute on chronic hypoxic respiratory failure in the setting of influenza infection required CPAP overnight ABG showing mild met alkalosis, no hypercapnia Continue Tamiflu 09/29 DuoNebs, Increase Solu-Medrol, Pulmonology consut Titrate supplemental O2>92, wean as tolerated FOREST on CKD3 Cr improved to 1.0 Hold nephrotoxic medications; Lisinopril, Allopurinol and lasix DC IVF monitor I\O follow BMP Elevated HTN restart lisinopril full dose Amlodipine 5 mg once monitor Syncope Orthostatic vs vasovagal normal Ortho vitals PT, Tele, monitor Elevated lactic acid Secondary to albuterol use and hypoxia, not sepsis No indication of bacterial infection Candidiasis in groin and intertriginous folds Treat with clotrimazole and nystatin cream b.i.d. LALI CPAP at night HFpEF Not in acute exacerbation Continue home Lasix Non-insulin dependent diabetes type 2 Hold metformin Sliding scale insulin Diabetic diet Hx of CVA Continue aspirin, statin Hx of gout Continue allopurinol Obesity class 3 Encourage weight loss DNR/DNI DVT Prophylaxis: Lovenox Pt will require a hospitalization overnight for treatment of?acute hypoxic respiratory failure in the setting of influenza infection. Given patient's comorbidities including heart failure, diabetes, and obesity, the patient will require managed care to treat with supplemental oxygen, IV steroids, breathing treatments, and close monitoring of respiratory status. Quality Stroke Does the patient have a stroke diagnosis?: No VTE Prior VTE?: No VTE Risk Level:: Medical - moderate - high VTE Device Contraindication: Treatment Not Indicated VTE Drug Contraindication: N/A - Med Ordered
--- NOTE | 2023-10-03 12:07 | P.CONPL_ITS ---
History of Present Illness History of Present Illness Consult date: 10/03/23 Chief complaint: Hypoxia,Flu+ Narrative: This is an inpatient pulmonary consultation. The patient is a 68-year-old male with a PMH significant for?HTN, HLD, CVA in 2019, [id number] diabetes type 2, pulmonary arterial hypertension, HFpEF, gout, and LALI on CPAP at night who presents to the ED for evaluation for weakness and syncopal episode at home. Patient states earlier this afternoon he had a to go to the bathroom, felt lightheaded and dizzy, and then ?blacked out? and fell to the floor. Syncopal episode lasted for greater than 5 minutes. Patient awoke but felt weak and lactose strength to pull himself up. called EMS. Patient states that he had 2-3 other presyncopal episodes earlier in the day, and wanted to presyncopal episodes yesterday. Has felt generally unwell for the past 4 days with subjective fever and chills, and persistent cough productive of whitish sputum. Reports he has not been able to sleep at night for the past 2 days because of coughing. Denies chest pain, pressure, palpitations. No shortness of breath. Denies nausea or vomiting or abdominal pain. Patient also notes he has had a red rash in his groin for the past week or so. In the ED pt was afebrile, but tachypneic up with 24, hypertensive up to 166/82, and hypoxic satting at 87% on RA which improved to 92% on 5 L NC. Labs were significant for patient testing positive for influenza type a, lactic acid 2.6 with repeat 2.7. He tested positive for influenza a and was started on Tamiflu. The patient has x-rays with evidence of airspace disease. He was admitted to the floor and unfortunate oxygen requirements are going up. Has significant chest tightness. Significant wheezing. He was placed briefly on BiPAP. Based on the fact that his symptoms were getting worse pulmonary was consulted. Review of Systems 2 Constitutional: Constitutional: Reports no additional constitutional complaints, Denies chills, Denies fever(s) and Denies night sweats Eyes: Eyes: Reports no additional eye complaints, Denies blurry vision, Denies change in vision, Denies diplopia, Denies eye discharge, Denies loss of vision and Denies eye pain ENT: Reports dizziness Cardiovascular: Cardiovascular: Reports no additional cardiovascular complaints, Denies chest pain, Denies lightheadedness, Denies Loss of Consciousness and Reports dyspnea Respiratory: Respiratory: Reports no additional respiratory complaints, Reports cough, Reports dyspnea and Reports wheezing Gastrointestinal: Gastrointestinal: Reports no additional gastrointestinal complaints, Denies abdominal pain, Denies melena, Denies hematochezia, Denies change in bowel habits and Denies change in stool character Genitourinary: Genitourinary: Reports no additional male genitourinary complaints, Denies hematuria, Denies oliguria, Denies difficulty urinating, Denies dysuria, Denies urinary frequency, Denies urinary hesitancy, Denies urinary incontinence and Denies urinary urgency Musculoskeletal: Musculoskeletal: Reports no additional musculoskeletal complaints, Denies numbness and Denies tingling Neurologic: Reports dizziness, Denies loss of vision, Denies numbness and Denies tingling Comments: near syncope Psychiatric: Psychiatric: Reports no additional psychiatric complaints Endocrine: Endocrine: Reports no additional endocrine complaints Hematologic/Lymphatic: Hematologic/Lymphatic: Reports no additional hematologic/lymphatic complaints Allergic/Immunologic: Allergic/Immunologic: Reports no additional allergic/immunologic complaints and Reports wheezing PMFSH Past Medical History Medical History Screening PSA (prostate specific antigen) Elevated serum creatinine Morbid obesity Right heart failure Leg pain FOREST (acute kidney injury) Leukocytosis LALI (obstructive sleep apnea) Hyperlipidemia HTN (hypertension) Diastolic heart failure Newly diagnosed diabetes Acute gout of left foot Chronic fatigue Pulmonary arterial hypertension Cerebrovascular accident (CVA) Family History Family History Father Blood clot in vein Mother Cancer Surgical History Surgical History Hx of shoulder surgery No pertinent past surgical history Social History Social History Household Members: Family Housing: Apartment Do you presently have visiting nurse or other home services: No Patient Tobacco Use Status: Never used Tobacco Years Smoked: nonsmoker Advance Directives Date on File: 12/03/20 service: No Current occupational status: unemployed Meds Allergies Allergy/AdvReac Type Severity Reaction Status Date / Time No Known Allergies Allergy Verified 06/23/23 09:05 Active Medications: Current Medications Acetaminophen (Acetaminophen 325 Mg Tablet) 650 mg PO Q6H PRN PRN Reason: Pain, Mild (Pain Scale 1-3) Last Admin: 10/02/23 14:05 Dose: 650 mg Albuterol/Ipratropium (Albuterol/Iprat 2.5/0.5mg 3 Ml Ampul.Neb) 3 ml INHALE RQ4H WHILE AWAKE [facility] Last Admin: 10/03/23 11:52 Dose: 3 ml Allopurinol (Allopurinol 300 Mg Tablet) 300 mg PO BID [facility] Last Admin: 10/01/23 07:58 Dose: 300 mg Amlodipine Besylate (Amlodipine Besylate 10 Mg Tablet) 10 mg PO DAILY [facility]; Protocol Last Admin: 10/03/23 08:01 Dose: 10 mg Aspirin (Aspirin 81 Mg Tab.Chew) 81 mg PO DAILY [facility] Last Admin: 10/03/23 08:00 Dose: 81 mg Atorvastatin Calcium (Atorvastatin Calcium 80 Mg Tablet) 80 mg PO DAILY [facility] Last Admin: 10/03/23 08:01 Dose: 80 mg Benzonatate (Benzonatate 100 Mg Capsule) 100 mg PO TID PRN PRN Reason: Cough Clotrimazole (Clotrimazole 1 % Cream 15 Gm Tube) 1 appl TOPICAL BID [facility]; Protocol Last Admin: 10/03/23 08:05 Dose: 1 appl Dextrose (Dextrose 50 % 25 Gm/50 Ml Syringe) 25 gm IVPUSH Q15M PRN; Protocol PRN Reason: per Hypoglycemia Standing Ord. Docusate Sodium (Docusate Sodium 100 Mg Capsule) 100 mg PO DAILY PRN PRN Reason: Constipation Duloxetine HCl (Duloxetine Hcl 30 Mg Capsule.Dr) 30 mg PO BID [facility] Last Admin: 10/03/23 08:00 Dose: 30 mg Enoxaparin Sodium (Enoxaparin Sodium 30 Mg/0.3 Ml Syringe) 30 mg SUBCUT Q24H [facility] Last Admin: 10/03/23 10:46 Dose: 30 mg Furosemide (Furosemide 40 Mg Tablet) 40 mg PO DAILY [facility]; Protocol Last Admin: 10/01/23 07:59 Dose: 40 mg Glucose (Glucose Gel 15 Gm Gel..Gram.) 15 gm PO Q15M PRN; Protocol PRN Reason: per Hypoglycemia Standing Ord. Magnesium Sulfate (Magnesium Sulfate/H2o) 2 gm in 50 mls @ 25 mls/hr IV ONCE ONE Stop: 10/03/23 14:04 Doxycycline Hyclate 100 mg/ (Sodium Chloride) 250 mls @ 166.67 mls/hr IV Q12H [facility] Insulin Human Lispro (Insulin Lispro 100 Unit/Ml 3 Ml Vial) 0 unit SUBCUT QIDACHS [facility]; Protocol Last Admin: 10/03/23 08:00 Dose: 2 unit Lisinopril (Lisinopril 40 Mg Tablet) 40 mg PO DAILY [facility]; Protocol Last Admin: 10/03/23 08:11 Dose: 40 mg Magnesium Oxide (Magnesium Oxide 400 Mg Tablet) 400 mg PO DAILY [facility] Last Admin: 10/03/23 08:01 Dose: 400 mg Melatonin (Melatonin 3 Mg Tablet) 6 mg PO BEDTIME PRN PRN Reason: Insomnia Methylprednisolone Sodium Succinate (Methylprednisolone Sod Succ 125 Mg/2 Ml Vial) 80 mg IVPUSH Q8H [facility] Nystatin (Nystatin Powder 15 Gm Bottle) 1 appl TOPICAL BID [facility]; Protocol Last Admin: 10/03/23 08:05 Dose: 1 appl Ondansetron HCl (Ondansetron Hcl 4 Mg/2 Ml Vial) 4 mg IVPUSH Q8H PRN PRN Reason: Nausea and Vomiting Oseltamivir Phosphate (Oseltamivir Phosphate 75 Mg Capsule) 75 mg PO Q12H [facility] Stop: 10/04/23 09:01 Last Admin: 10/03/23 08:01 Dose: 75 mg Sodium Chloride (0.9 % Sodium Chloride Flush 3 Ml Syringe) 3 ml IVFLUSH QSHIFT [facility] Last Admin: 10/03/23 08:01 Dose: 3 ml Home Medications Medication Instructions Recorded Confirmed Last Taken Type aspirin 81 mg chewable tablet 81 mg PO DAILY 09/29/23 09/29/23 09/29/23 History Physical Exam 2 Vital Signs: Vital Signs: Last Vital Signs Temp 97.3 F 10/03/23 12:01 Pulse 78 10/03/23 12:01 Resp 20 10/03/23 12:01 BP 155/76 H 10/03/23 12:01 Pulse Ox 92 10/03/23 12:01 O2 Del Method Nasal Cannula 10/03/23 12:01 O2 Flow Rate 12 10/03/23 12:01 Oxygen Flow Rate 5 09/29/23 12:47 BMI result Body Mass Index 53.7 Const: General: tired appearing Nutritional Appearance: overweight HEENT: Head: Yes normocephalic Neck: Neck: Yes supple Chest: Chest palpation & inspection: normal inspection of the chest Resp: Effort & Inspection: tachypneic and prolonged expiratory phase A uscultation: wheezes and diminished lung sounds Cardio: Heart sounds: S1 normal heart sound present and S2 normal heart sound present GI: Palpation (GI): Soft to palpation Skin: General skin exam: no rashes or lesions noted Extrem: General: No clubbing and No cyanosis Results Laboratory Findings 10/01/23 06:21 10/03/23 07:55 ABG, PT/INR, D-dimer: PT/INR, D-dimer PT 12.2 SEC (11.1-13.3) 09/29/23 13:13 INR 1.0 (0.9-1.1) 09/29/23 13:13 Abnormal lab findings: Abnormal Labs 09/29/23 09/29/23 09/29/23 12:54 13:12 13:13 WBC Hgb 13.3 L MCHC RDW Immature Gran % (Auto) 0.8 H Neut % (Auto) 85.5 H Lymph % (Auto) 5.8 L Lymph # (Auto) 0.5 L Abs Immat Gran (auto) 0.07 H ABG pH at Pt Temp ABG pCO2 at Pt Temp ABG pO2 at Pt Temp ABG HCO3 VBG pH VBG HCO3 Carbon Dioxide BUN 17 H Creatinine POC Glucose Random Glucose 156 H Lactic Acid 2.6 H* Lactic Acid F/U @ 2Hr AST 39 H B-Natriuretic Peptide Total Protein 8.5 H Influenza Type A (PCR) POSITIVE A 09/29/23 09/29/23 09/29/23 16:54 16:58 21:21 WBC Hgb MCHC RDW Immature Gran % (Auto) Neut % (Auto) Lymph % (Auto) Lymph # (Auto) Abs Immat Gran (auto) ABG pH at Pt Temp ABG pCO2 at Pt Temp ABG pO2 at Pt Temp ABG HCO3 VBG pH 7.49 H VBG HCO3 29 H Carbon Dioxide BUN Creatinine POC Glucose 159 H Random Glucose Lactic Acid Lactic Acid F/U @ 2Hr 2.7 H* AST B-Natriuretic Peptide Total Protein Influenza Type A (PCR) 09/30/23 09/30/2309/30/23 07:06 09:00 11:18 WBC Hgb MCHC RDW Immature Gran % (Auto) Neut % (Auto) Lymph % (Auto) Lymph # (Auto) Abs Immat Gran (auto) ABG pH at Pt Temp ABG pCO2 at Pt Temp ABG pO2 at Pt Temp ABG HCO3 VBG pH VBG HCO3 Carbon Dioxide BUN Creatinine POC Glucose 145 H 172 H 154 H Random Glucose Lactic Acid Lactic Acid F/U @ 2Hr AST B-Natriuretic Peptide Total Protein Influenza Type A (PCR) 09/30/23 09/30/23 10/01/23 16:41 20:53 06:21 WBC 15.9 H Hgb 13.9 L MCHC 30.5 L RDW 16.2 H Immature Gran % (Auto) Neut % (Auto) Lymph % (Auto) Lymph # (Auto) Abs Immat Gran (auto) ABG pH at Pt Temp ABG pCO2 at Pt Temp ABG pO2 at Pt Temp ABG HCO3 VBG pH VBG HCO3 Carbon Dioxide BUN Creatinine POC Glucose 166 H 166 H Random Glucose Lactic Acid Lactic Acid F/U @ 2Hr AST B-Natriuretic Peptide Total Protein Influenza Type A (PCR) 10/01/23 10/01/23 10/01/23 07:28 09:00 11:33 WBC Hgb MCHC RDW Immature Gran % (Auto) Neut % (Auto) Lymph % (Auto) Lymph # (Auto) Abs Immat Gran (auto) ABG pH at Pt Temp ABG pCO2 at Pt Temp ABG pO2 at Pt Temp ABG HCO3 VBG pH VBG HCO3 Carbon Dioxide BUN 44 H Creatinine 1.81 H POC Glucose 181 H 165 H Random Glucose 194 H Lactic Acid Lactic Acid F/U @ 2Hr AST B-Natriuretic Peptide Total Protein Influenza Type A (PCR) 10/01/23 10/01/23 10/02/23 16:22 19:20 07:13 WBC Hgb MCHC RDW Immature Gran % (Auto) Neut % (Auto) Lymph % (Auto) Lymph # (Auto) Abs Immat Gran (auto) ABG pH at Pt Temp ABG pCO2 at Pt Temp ABG pO2 at Pt Temp ABG HCO3 VBG pH VBG HCO3 Carbon Dioxide BUN Creatinine POC Glucose 169 H 181 H 179 H Random Glucose Lactic Acid Lactic Acid F/U @ 2Hr AST B-Natriuretic Peptide Total Protein Influenza Type A (PCR) 10/02/23 10/02/23 10/02/23 08:02 11:08 16:04 WBC Hgb MCHC RDW Immature Gran % (Auto) Neut % (Auto) Lymph % (Auto) Lymph # (Auto) Abs Immat Gran (auto) ABG pH at Pt Temp ABG pCO2 at Pt Temp ABG pO2 at Pt Temp ABG HCO3 VBG pH VBG HCO3 Carbon Dioxide BUN 42 H Creatinine POC Glucose 193 H 161 H Random Glucose 175 H Lactic Acid Lactic Acid F/U @ 2Hr AST B-Natriuretic Peptide Total Protein Influenza Type A (PCR) 10/02/23 10/03/23 10/03/23 19:18 07:40 07:55 WBC Hgb MCHC RDW Immature Gran % (Auto) Neut % (Auto) Lymph % (Auto) Lymph # (Auto) Abs Immat Gran (auto) ABG pH at Pt Temp 7.47 H ABG pCO2 at Pt Temp 48 H ABG pO2 at Pt Temp 71 L ABG HCO3 35 H VBG pH VBG HCO3 Carbon Dioxide 30 H BUN 26 H Creatinine POC Glucose 145 H 190 H Random Glucose 189 H Lactic Acid Lactic Acid F/U @ 2Hr AST B-Natriuretic Peptide 106 H Total Protein Influenza Type A (PCR) 10/03/23 11:06 WBC Hgb MCHC RDW Immature Gran % (Auto) Neut % (Auto) Lymph % (Auto) Lymph # (Auto) Abs Immat Gran (auto) ABG pH at Pt Temp ABG pCO2 at Pt Temp ABG pO2 at Pt Temp ABG HCO3 VBG pH VBG HCO3 Carbon Dioxide BUN Creatinine POC Glucose 207 H Random Glucose Lactic Acid Lactic Acid F/U @ 2Hr AST B-Natriuretic Peptide Total Protein Influenza Type A (PCR) Microbiology: Microbiology 09/29/23 13:25 Blood - Venous Blood Culture - Preliminary No growth after 48 hours. 09/29/23 13:12 Blood - Venous Blood Culture - Preliminary No growth after 48 hours. Assessment and Plan (1) Acute hypoxic respiratory failure: Status: Acute (2) Influenza: Status: Acute (3) LALI (obstructive sleep apnea): Status: Acute (4) Pneumonia: Qualifiers: Pneumonia type: due to unspecified organism Laterality: bilateral Lung location: unspecified part of lung Qualified Code(s): J18.9 - Pneumonia, unspecified organism Status: Acute Plan Increase Solu-Medrol 80 mg q.8 Continue frequent nebulized therapy every 2-4 hours Magnesium sulfate 2 g IV x1 now Continue Tamiflu Start doxycycline Continue oxygen supplementation. May benefit from high-flow specially for the PEEP effect Does benefit from BiPAP at night Repeat chest x-ray diuresis as tolerated (keep dry) Procedures Date of Service Date of Service: 10/03/23
[2023-10-03] MEDS: Doxycycline Hyclate 100 MG in 0.9 % Sodium Chloride 250 ML 166.67 MG IV (12:48)
[2023-10-03] MEDS: methylPREDNISolone Sod Succ 125 MG/2 ML VIAL 80 MG IVPUSH ×2 (12:48→21:04)
[2023-10-03] MEDS: Magnesium Sulfate/H2O 2 GM/50 ML PIGGYBACK IV (12:55)
[2023-10-03 17:01] LABS: Glucose, Whole Blood 204 mg/dL (60-115)
[2023-10-03] MEDS: Melatonin 3 MG TABLET 6 MG PO (21:15)
[2023-10-03] MEDS: Acetaminophen 325 MG TABLET 650 MG PO (21:15)
[2023-10-03 21:29] LABS: Glucose, Whole Blood 214 mg/dL (60-115)
[2023-10-04] VITALS (14 sets, daily range): BP systolic 131–187; BP diastolic 62–98; PULSE 58–87; RESP 15–22; TEMP 36–36.6; O2SAT 89–97
[2023-10-04] MEDS: Doxycycline Hyclate 100 MG in 0.9 % Sodium Chloride 250 ML 166.67 MG IV ×2 (00:03→12:52)
[2023-10-04] MEDS: methylPREDNISolone Sod Succ 125 MG/2 ML VIAL 80 MG IVPUSH ×3 (04:33→23:52)
[2023-10-04 06:25] LABS: Hematocrit 38.7 % (42.0-52.0); Mean Corpuscular Hemoglobin 27.5 pg (27.0-33.0); Mean Corpuscular Volume 88.6 fL (80.0-98.0); Mean Platelet Volume 10.5 fL (9.4-12.4); Platelet Count 165 X10*3/uL (160-400); Red Blood Count 4.37 X10*6/uL (4.60-5.80); Red Cell Distribution Width 15.8 % (11.0-16.0)
[2023-10-04 06:31] LABS: Anion Gap 15 (12-20); Blood Urea Nitrogen 41 mg/dL (9-16); Calcium 8.9 mg/dL (8.4-10.2); Carbon Dioxide 29 mmol/L (22-29); Chloride 102 mmol/L (96-108); Creatinine Clr Calc Pharmacy 76.7; Estimated Glomerular Filt Rate 54; Glucose Random 188 mg/dL (60-115); Potassium 3.9 mmol/L (3.3-5.1); Sodium 142 mmol/L (135-145)
[2023-10-04 07:06] LABS: Glucose, Whole Blood 186 mg/dL (60-115)
[2023-10-04] MEDS: Albuterol/Iprat 2.5/0.5MG 3 ML AMPUL.NEB INHALE ×4 (08:20→19:27)
[2023-10-04] MEDS: Oseltamivir Phosphate 75 MG CAPSULE PO (08:47)
[2023-10-04] MEDS: 0.9 % Sodium Chloride Flush 3 ML SYRINGE IVFLUSH ×3 (08:48→23:53)
[2023-10-04] MEDS: Insulin Lispro 100 UNIT/ML 3 ML VIAL SUBCUT ×4 (08:48→23:52)
[2023-10-04] MEDS: Aspirin 81 MG TAB.CHEW PO (08:49)
[2023-10-04] MEDS: hydrALAZINE HCl 25 MG TABLET PO ×3 (08:49→23:52)
[2023-10-04] MEDS: amLODIPine Besylate 10 MG TABLET PO (08:49)
[2023-10-04] MEDS: lisinopriL 40 MG TABLET PO (08:49)
[2023-10-04] MEDS: Furosemide 40 MG TABLET PO (08:49)
[2023-10-04] MEDS: DULoxetine HCl 30 MG CAPSULE.DR PO ×2 (08:49→23:52)
[2023-10-04] MEDS: Magnesium Oxide 400 MG TABLET PO (08:49)
[2023-10-04] MEDS: Atorvastatin Calcium 80 MG TABLET PO (08:49)
[2023-10-04] MEDS: Enoxaparin Sodium 30 MG/0.3 ML SYRINGE SUBCUT (08:50)
[2023-10-04] MEDS: Clotrimazole 1 % Cream 15 GM TUBE 1 APPL TOPICAL ×2 (10:32→23:54)
[2023-10-04] MEDS: Nystatin Powder 15 GM BOTTLE 1 APPL TOPICAL ×2 (10:32→23:53)
[2023-10-04 10:59] LABS: Glucose, Whole Blood 196 mg/dL (60-115)
--- NOTE | 2023-10-04 11:33 | HO.PM.IMPN ---
Subjective Subjective Date of Service: 10/04/23 Interval History: Seen and evaluated this morning on CPAP overnight with good tolerance Less O2 supplement needed than yesterday of 7-8L Cr improved to 1.0 denies fever or chills or chest pain Review of Systems Review of Systems: Yes all other systems are reviewed and are negative Physical Exam Vital Signs: Vital Signs: Last Vital Signs Temp 97.4 F 10/04/23 11:11 Pulse 81 10/04/23 11:11 Resp 20 10/04/23 11:11 BP 131/62 10/04/23 11:11 Pulse Ox 92 10/04/23 11:11 O2 Del Method Nasal Cannula, Hu midified O2 10/04/23 11:11 O2 Flow Rate 7 10/04/23 11:11 FiO2 60 10/04/23 04:00 Oxygen Flow Rate 5 09/29/23 12:47 BMI result Body Mass Index 53.7 Const: Other: Constitutional : Awake, interactive, morbid obese, in mild resp distress Neck : Normal inspection, Supple Cardiovascular : RRR, no JVP, no lower extremity edema Respiratory : decreased bilateral air entry, no crackles, significant bilateral expiratory wheezes Gastrointestinal: soft, lax, Normal bowel sounds, Non tender Skin : Warm, Dry Neurological : Alert & oriented x3, No focal deficit Objective Data Active Medications Acetaminophen (Acetaminophen 325 Mg Tablet) 650 mg PO Q6H PRN PRN Reason: Pain, Mild (Pain Scale 1-3) Last Admin: 10/03/23 21:15 Dose: 650 mg Documented By: GISELE Albuterol/Ipratropium (Albuterol/Iprat 2.5/0.5mg 3 Ml Ampul.Neb) 3 ml INHALE RQ4H WHILE AWAKE [facility] Last Admin: 10/04/23 08:20 Dose: 3 ml Documented By: RO Allopurinol (Allopurinol 300 Mg Tablet) 300 mg PO BID [facility] Last Admin: 10/01/23 07:58 Dose: 300 mg Documented By: PATI Amlodipine Besylate (Amlodipine Besylate 10 Mg Tablet) 10 mg PO DAILY [facility]; Protocol Last Admin: 10/04/23 08:49 Dose: 10 mg Documented By: JESSICA Aspirin (Aspirin 81 Mg Tab.Chew) 81 mg PO DAILY [facility] Last Admin: 10/04/23 08:49 Dose: 81 mg Documented By: JESSICA Atorvastatin Calcium (Atorvastatin Calcium 80 Mg Tablet) 80 mg PO DAILY [facility] Last Admin: 10/04/23 08:49 Dose: 80 mg Documented By: JESSICA Benzonatate (Benzonatate 100 Mg Capsule) 100 mg PO TID PRN PRN Reason: Cough Clotrimazole (Clotrimazole 1 % Cream 15 Gm Tube) 1 appl TOPICAL BID [facility]; Protocol Last Admin: 10/04/23 10:32 Dose: 1 appl Documented By: JESSICA Dextrose (Dextrose 50 % 25 Gm/50 Ml Syringe) 25 gm IVPUSH Q15M PRN; Protocol PRN Reason: per Hypoglycemia Standing Ord. Docusate Sodium (Docusate Sodium 100 Mg Capsule) 100 mg PO DAILY PRN PRN Reason: Constipation Duloxetine HCl (Duloxetine Hcl 30 Mg Capsule.Dr) 30 mg PO BID [facility] Last Admin: 10/04/23 08:49 Dose: 30 mg Documented By: JESSICA Enoxaparin Sodium (Enoxaparin Sodium 30 Mg/0.3 Ml Syringe) 30 mg SUBCUT Q24H [facility] Last Admin: 10/04/23 08:50 Dose: 30 mg Documented By: JESSICA Furosemide (Furosemide 40 Mg Tablet) 40 mg PO DAILY [facility]; Protocol Last Admin: 10/04/23 08:49 Dose: 40 mg Documented By: JESSICA Glucose (Glucose Gel 15 Gm Gel..Gram.) 15 gm PO Q15M PRN; Protocol PRN Reason: per Hypoglycemia Standing Ord. Hydralazine HCl (Hydralazine Hcl 25 Mg Tablet) 25 mg PO TID [facility]; Protocol Last Admin: 10/04/23 08:49 Dose: 25 mg Documented By: JESSICA Doxycycline Hyclate 100 mg/ (Sodium Chloride) 250 mls @ 166.67 mls/hr IV Q12H [facility] Last Infusion: 10/04/23 01:33 Dose: Infused Documented By: GISELE Insulin Human Lispro (Insulin Lispro 100 Unit/Ml 3 Ml Vial) 0 unit SUBCUT QIDACHS [facility]; Protocol Last Admin: 10/04/23 08:48 Dose: 2 unit Documented By: JESSICA Lisinopril (Lisinopril 40 Mg Tablet) 40 mg PO DAILY [facility]; Protocol Last Admin: 10/04/23 08:49 Dose: 40 mg Documented By: JESSICA Magnesium Oxide (Magnesium Oxide 400 Mg Tablet) 400 mg PO DAILY [facility] Last Admin: 10/04/23 08:49 Dose: 400 mg Documented By: JESSICA Melatonin (Melatonin 3 Mg Tablet) 6 mg PO BEDTIME PRN PRN Reason: Insomnia Last Admin: 10/03/23 21:15 Dose: 6 mg Documented By: GISELE Methylprednisolone Sodium Succinate (Methylprednisolone Sod Succ 125 Mg/2 Ml Vial) 80 mg IVPUSH Q8H [facility] Last Admin: 10/04/23 04:33 Dose: 80 mg Documented By: GISELE Nystatin (Nystatin Powder 15 Gm Bottle) 1 appl TOPICAL BID [facility]; Protocol Last Admin: 10/04/23 10:32 Dose: 1 appl Documented By: JESSICA Ondansetron HCl (Ondansetron Hcl 4 Mg/2 Ml Vial) 4 mg IVPUSH Q8H PRN PRN Reason: Nausea and Vomiting Sodium Chloride (0.9 % Sodium Chloride Flush 3 Ml Syringe) 3 ml IVFLUSH QSHIFT [facility] Last Admin: 10/04/23 08:48 Dose: 3 ml Documented By: JESSICA Labs 10/04/23 05:52 10/04/23 05:52 Labs: Laboratory Results - last 24 hr 10/03/23 10/03/23 10/04/23 16:57 21:19 05:52 MCV 88.6 MCH 27.5 MCHC 31.0 RDW 15.8 Plt Count 165 D MPV 10.5 Absolute Nucleated RBC 0.000 Nucleated RBC % (auto) 0.0 Anion Gap 15 Estim Creat Clear Calc 76.7 Estimated GFR 54 POC Glucose 204 H 214 H Random Glucose 188 H Calcium 8.9 10/04/23 10/04/23 06:59 10:53 MCV MCH MCHC RDW Plt Count MPV Absolute Nucleated RBC Nucleated RBC % (auto) Anion Gap Estim Creat Clear Calc Estimated GFR POC Glucose 186 H 196 H Random Glucose Calcium Assessment and Plan (1) Pneumonia: Status: Acute (2) Acute kidney injury superimposed on CKD: Status: Acute (3) Acute hypoxic respiratory failure: Status: Acute (4) Influenza: Status: Acute Plan Pt is a 68-year-old male with a PMH significant for?HTN, HLD, CVA, [id number] diabetes type 2, pulmonary arterial hypertension, HFpEF, gout, and LALI on CPAP at night who presents to the ED for evaluation for weakness and syncopal episode at home. Pt will be admitted to the hospital for treatment and further evaluation of acute hypoxic respiratory failure in the setting of influenza infection. Acute on chronic hypoxic respiratory failure in the setting of influenza infection Finished Tamiflu 09/29 CXR showing bilateral infiltrates, may resemble viral pneumonia DuoNebs, Increase Solu-Medrol, Start Doxycycline Pulmonology input appreciated Titrate supplemental O2>92, wean as tolerated CPAP at bedtime FOREST on CKD3 Cr increased to 1.3 restart Lisinopril and lasix Hold Allopurinol DC IVF monitor I\O follow BMP Elevated HTN lisinopril full dose Amlodipine 10 mg daily Hydralazine 25 mg tid started this morning monitor for hypotension Syncope Orthostatic vs vasovagal normal Ortho vitals PT, Tele, monitor Elevated lactic acid Secondary to albuterol use and hypoxia, not sepsis No indication of bacterial infection Candidiasis in groin and intertriginous folds Treat with clotrimazole and nystatin cream b.i.d. LALI CPAP at night HFpEF Not in acute exacerbation Continue home Lasix Non-insulin dependent diabetes type 2 Hold metformin Sliding scale insulin Diabetic diet Hx of CVA Continue aspirin, statin Hx of gout Continue allopurinol Obesity class 3 Encourage weight loss DNR/DNI DVT Prophylaxis: Lovenox Pt will require a hospitalization overnight for treatment of?acute hypoxic respiratory failure in the setting of influenza infection. Given patient's comorbidities including heart failure, diabetes, and obesity, the patient will require managed care to treat with supplemental oxygen, IV steroids, breathing treatments, and close monitoring of respiratory status. Quality Stroke Does the patient have a stroke diagnosis?: No VTE Prior VTE?: No VTE Risk Level:: Medical - moderate - high VTE Device Contraindication: Treatment Not Indicated VTE Drug Contraindication: N/A - Med Ordered
[2023-10-04 16:35] LABS: Glucose, Whole Blood 204 mg/dL (60-115)
[2023-10-04 20:32] LABS: Glucose, Whole Blood 233 mg/dL (60-115)
[2023-10-05] VITALS (12 sets, daily range): BP systolic 118–210; BP diastolic 63–95; PULSE 72–136; RESP 16–24; TEMP 36.2–37.1; O2SAT 88–95
[2023-10-05] MEDS: methylPREDNISolone Sod Succ 125 MG/2 ML VIAL 80 MG IVPUSH ×3 (04:03→21:21)
[2023-10-05 07:02] LABS: Hematocrit 41.6 % (42.0-52.0); Mean Corpuscular HGB Conc 31.3 g/dl (31.0-36.0); Mean Corpuscular Volume 89.7 fL (80.0-98.0); Platelet Count 217 X10*3/uL (160-400); Red Blood Count 4.64 X10*6/uL (4.60-5.80); White Blood Count 15.8 X10*3/uL (4.8-10.8)
[2023-10-05 07:18] LABS: Anion Gap 17 (12-20); Blood Urea Nitrogen 49 mg/dL (9-16); Calcium 9.3 mg/dL (8.4-10.2); Carbon Dioxide 32 mmol/L (22-29); Chloride 100 mmol/L (96-108); Creatinine Clr Calc Pharmacy 76.1; Estimated Glomerular Filt Rate 54; Glucose Random 224 mg/dL (60-115); Potassium 3.6 mmol/L (3.3-5.1); Sodium 145 mmol/L (135-145)
[2023-10-05] MEDS: Furosemide 40 MG TABLET PO (07:55)
[2023-10-05] MEDS: Benzonatate 100 MG CAPSULE PO (07:55)
[2023-10-05] MEDS: Insulin Lispro 100 UNIT/ML 3 ML VIAL SUBCUT ×4 (07:55→21:22)
[2023-10-05] MEDS: DULoxetine HCl 30 MG CAPSULE.DR PO ×2 (07:56→21:21)
[2023-10-05] MEDS: Atorvastatin Calcium 80 MG TABLET PO (07:56)
[2023-10-05] MEDS: Magnesium Oxide 400 MG TABLET PO (07:56)
[2023-10-05] MEDS: hydrALAZINE HCl 25 MG TABLET PO ×3 (07:56→21:21)
[2023-10-05] MEDS: amLODIPine Besylate 10 MG TABLET PO (07:56)
[2023-10-05] MEDS: Aspirin 81 MG TAB.CHEW PO (07:56)
[2023-10-05] MEDS: lisinopriL 40 MG TABLET PO (07:56)
[2023-10-05] MEDS: 0.9 % Sodium Chloride Flush 3 ML SYRINGE IVFLUSH ×3 (07:57→21:22)
[2023-10-05 08:11] LABS: Glucose, Whole Blood 230 mg/dL (60-115)
[2023-10-05] MEDS: Albuterol/Iprat 2.5/0.5MG 3 ML AMPUL.NEB INHALE ×4 (08:25→19:53)
--- NOTE | 2023-10-05 09:02 | HO.PM.IMPN ---
Subjective Subjective Date of Service: 10/05/23 Interval History: Seen and evaluated this morning on CPAP overnight with good tolerance weaning O2 supplement to 5L BP significantly elevated this morning denies fever or chills or chest pain Review of Systems Review of Systems: Yes all other systems are reviewed and are negative Physical Exam Vital Signs: Vital Signs: Last Vital Signs Temp 98.4 F 10/05/23 07:33 Pulse 77 10/05/23 08:27 Resp 16 10/05/23 08:27 BP 210/95 H 10/05/23 07:33 Pulse Ox 92 10/05/23 07:33 O2 Del Method BiPAP 10/05/23 07:33 O2 Flow Rate 7 10/04/23 23:44 FiO2 45 10/05/23 03:24 Oxygen Flow Rate 5 09/29/23 12:47 BMI result Body Mass Index 53.7 Const: Other: Constitutional : Awake, interactive, morbid obese, in mild resp distress Neck : Normal inspection, Supple Cardiovascular : RRR, no JVP, no lower extremity edema Respiratory : decreased bilateral air entry, no crackles, scattered bilateral expiratory wheezes , on O2 supplement Gastrointestinal: soft, lax, Normal bowel sounds, Non tender Skin : Warm, Dry Neurological : Alert & oriented x3, No focal deficit Objective Data Active Medications Acetaminophen (Acetaminophen 325 Mg Tablet) 650 mg PO Q6H PRN PRN Reason: Pain, Mild (Pain Scale 1-3) Last Admin: 10/03/23 21:15 Dose: 650 mg Documented By: GISELE Albuterol/Ipratropium (Albuterol/Iprat 2.5/0.5mg 3 Ml Ampul.Neb) 3 ml INHALE RQ4H WHILE AWAKE [facility] Last Admin: 10/05/23 08:25 Dose: 3 ml Documented By: RO Allopurinol (Allopurinol 300 Mg Tablet) 300 mg PO BID [facility] Last Admin: 10/01/23 07:58 Dose: 300 mg Documented By: PATI Amlodipine Besylate (Amlodipine Besylate 10 Mg Tablet) 10 mg PO DAILY [facility]; Protocol Last Admin: 10/05/23 07:56 Dose: 10 mg Documented By: ESTEFANY Aspirin (Aspirin 81 Mg Tab.Chew) 81 mg PO DAILY [facility] Last Admin: 10/05/23 07:56 Dose: 81 mg Documented By: ESTEFANY Atorvastatin Calcium (Atorvastatin Calcium 80 Mg Tablet) 80 mg PO DAILY [facility] Last Admin: 10/05/23 07:56 Dose: 80 mg Documented By: ESTEFANY Benzonatate (Benzonatate 100 Mg Capsule) 100 mg PO TID PRN PRN Reason: Cough Last Admin: 10/05/23 07:55 Dose: 100 mg Documented By: ESTEFANY Clotrimazole (Clotrimazole 1 % Cream 15 Gm Tube) 1 appl TOPICAL BID [facility]; Protocol Last Admin: 10/04/23 23:54 Dose: 1 appl Documented By: LEVY Dextrose (Dextrose 50 % 25 Gm/50 Ml Syringe) 25 gm IVPUSH Q15M PRN; Protocol PRN Reason: per Hypoglycemia Standing Ord. Docusate Sodium (Docusate Sodium 100 Mg Capsule) 100 mg PO DAILY PRN PRN Reason: Constipation Duloxetine HCl (Duloxetine Hcl 30 Mg Capsule.Dr) 30 mg PO BID [facility] Last Admin: 10/05/23 07:56 Dose: 30 mg Documented By: ESTEFANY Enoxaparin Sodium (Enoxaparin Sodium 30 Mg/0.3 Ml Syringe) 30 mg SUBCUT Q24H [facility] Last Admin: 10/04/23 08:50 Dose: 30 mg Documented By: JESSICA Furosemide (Furosemide 40 Mg Tablet) 40 mg PO DAILY [facility]; Protocol Last Admin: 10/05/23 07:55 Dose: 40 mg Documented By: ESTEFANY Glucose (Glucose Gel 15 Gm Gel..Gram.) 15 gm PO Q15M PRN; Protocol PRN Reason: per Hypoglycemia Standing Ord. Hydralazine HCl (Hydralazine Hcl 25 Mg Tablet) 25 mg PO TID [facility]; Protocol Last Admin: 10/05/23 07:56 Dose: 25 mg Documented By: ESTEFANY Doxycycline Hyclate 100 mg/ (Sodium Chloride) 250 mls @ 166.67 mls/hr IV Q12H [facility] Last Infusion: 10/05/23 01:40 Dose: Infused Documented By: LEVY Insulin Human Lispro (Insulin Lispro 100 Unit/Ml 3 Ml Vial) 0 unit SUBCUT QIDACHS [facility]; Protocol Last Admin: 10/05/23 07:55 Dose: 1 unit Documented By: ESTEFANY Comments: poc- 230 Lisinopril (Lisinopril 40 Mg Tablet) 40 mg PO DAILY [facility]; Protocol Last Admin: 10/05/23 07:56 Dose: 40 mg Documented By: ESTEFANY Magnesium Oxide (Magnesium Oxide 400 Mg Tablet) 400 mg PO DAILY [facility] Last Admin: 10/05/23 07:56 Dose: 400 mg Documented By: ESTEFANY Melatonin (Melatonin 3 Mg Tablet) 6 mg PO BEDTIME PRN PRN Reason: Insomnia Last Admin: 10/03/23 21:15 Dose: 6 mg Documented By: GISELE Methylprednisolone Sodium Succinate (Methylprednisolone Sod Succ 125 Mg/2 Ml Vial) 80 mg IVPUSH Q8H [facility] Last Admin: 10/05/23 04:03 Dose: 80 mg Documented By: LEVY Nystatin (Nystatin Powder 15 Gm Bottle) 1 appl TOPICAL BID [facility]; Protocol Last Admin: 10/04/23 23:53 Dose: 1 appl Documented By: LEVY Ondansetron HCl (Ondansetron Hcl 4 Mg/2 Ml Vial) 4 mg IVPUSH Q8H PRN PRN Reason: Nausea and Vomiting Sodium Chloride (0.9 % Sodium Chloride Flush 3 Ml Syringe) 3 ml IVFLUSH QSHIFT [facility] Last Admin: 10/05/23 07:57 Dose: 3 ml Documented By: ESTEFANY Labs 10/05/23 06:28 10/05/23 06:28 Labs: Laboratory Results - last 24 hr 10/04/23 10/04/23 10/04/23 10:53 16:25 20:24 MCV MCH MCHC RDW Plt Count MPV Absolute Nucleated RBC Nucleated RBC % (auto) Anion Gap Estim Creat Clear Calc Estimated GFR POC Glucose 196 H 204 H 233 H Random Glucose Calcium 10/05/23 10/05/23 06:28 07:55 MCV 89.7 MCH 28.0 MCHC 31.3 RDW 16.0 Plt Count 217 D MPV 11.0 Absolute Nucleated RBC 0.000 Nucleated RBC % (auto) 0.0 Anion Gap 17 Estim Creat Clear Calc 76.1 Estimated GFR 54 POC Glucose 230 H Random Glucose 224 H Calcium 9.3 Microbiology Microbiology Results: Microbiology 09/29/23 13:25 Blood Culture - Final Blood - Venous No growth after 5 days. 09/29/23 13:12 Blood Culture - Final Blood - Venous No growth after 5 days. Assessment and Plan (1) Pneumonia: Status: Acute (2) Acute kidney injury superimposed on CKD: Status: Acute (3) Acute hypoxic respiratory failure: Status: Acute (4) Influenza: Status: Acute Plan Pt is a 68-year-old male with a PMH significant for?HTN, HLD, CVA, [id number] diabetes type 2, pulmonary arterial hypertension, HFpEF, gout, and LALI on CPAP at night who presents to the ED for evaluation for weakness and syncopal episode at home. Pt will be admitted to the hospital for treatment and further evaluation of acute hypoxic respiratory failure in the setting of influenza infection. Acute on chronic hypoxic respiratory failure in the setting of influenza infection Finished Tamiflu 5 days CXR showing bilateral infiltrates, may resemble viral pneumonia DuoNebs, Increase Solu-Medrol, Continue Doxycycline for antiinflammatory effect Pulmonology input appreciated Titrate supplemental O2>92, wean as tolerated CPAP at bedtime FOREST on CKD3 Cr stable at 1.3 restart Lisinopril and lasix Continue to hold Allopurinol DC IVF monitor I\O follow BMP Elevated HTN lisinopril full dose Amlodipine 10 mg daily Hydralazine 25 mg tid monitor for hypotension Syncope on presentation, resolved Orthostatic vs vasovagal normal Ortho vitals PT, Tele, monitor Elevated lactic acid Secondary to albuterol use and hypoxia, not sepsis No signs of bacterial infection Candidiasis in groin and intertriginous folds Treat with clotrimazole and nystatin cream b.i.d. LALI PAtient denies having CPAP at home to do sleep study use CPAP at night HFpEF Not in acute exacerbation Continue home Lasix Non-insulin dependent diabetes type 2 Hold metformin Sliding scale insulin Diabetic diet Hx of CVA Continue aspirin, statin Hx of gout Continue allopurinol Obesity class 3 Encourage weight loss DNR/DNI DVT Prophylaxis: Lovenox Pt will require a hospitalization overnight for treatment of?acute hypoxic respiratory failure in the setting of influenza pneumonia. Given patient's comorbidities including heart failure, diabetes, and obesity, the patient will require managed care to treat with supplemental oxygen, steroids, breathing treatments, and close monitoring of respiratory status. Quality Stroke Does the patient have a stroke diagnosis?: No VTE Prior VTE?: No VTE Risk Level:: Medical - moderate - high VTE Device Contraindication: Treatment Not Indicated VTE Drug Contraindication: N/A - Med Ordered
[2023-10-05 13:11] LABS: Glucose, Whole Blood 250 mg/dL (60-115)
--- NOTE | 2023-10-05 13:26 | MHC.CM.PN ---
CM met with pt. to discuss STR. He is in agreement with going and requested it be near [place], where he lives. Referrals updated and added to. CM to follow and continue to assist with DC plan.
[2023-10-05] MEDS: Nystatin Powder 15 GM BOTTLE 1 APPL TOPICAL ×2 (13:52→21:23)
[2023-10-05] MEDS: Clotrimazole 1 % Cream 15 GM TUBE 1 APPL TOPICAL ×2 (13:52→21:24)
[2023-10-05] MEDS: Enoxaparin Sodium 30 MG/0.3 ML SYRINGE SUBCUT (13:53)
[2023-10-05] MEDS: Acetaminophen 325 MG TABLET 650 MG PO (13:54)
[2023-10-05] MEDS: Doxycycline Hyclate 100 MG in 0.9 % Sodium Chloride 250 ML 166.67 MG IV ×2 (13:58)
[2023-10-05 16:51] LABS: Glucose, Whole Blood 249 mg/dL (60-115)
[2023-10-05 20:17] LABS: Glucose, Whole Blood 246 mg/dL (60-115)
--- NOTE | 2023-10-05 23:09 | PC.RT ---
Sleep study ordered for patient tonight. However pt is on a 9 liter oximzer so the sellp study cannot not be done until the 02 is weaned down to atleast 4 liters. Therefore the patient is back on the V60 for the night.
[2023-10-06] VITALS (15 sets, daily range): BP systolic 135–163; BP diastolic 56–81; PULSE 62–94; RESP 18–30; TEMP 36.1–36.6; O2SAT 88–98
[2023-10-06] MEDS: Doxycycline Hyclate 100 MG in 0.9 % Sodium Chloride 250 ML 166.67 MG IV ×2 (00:14→11:51)
[2023-10-06] MEDS: methylPREDNISolone Sod Succ 125 MG/2 ML VIAL 80 MG IVPUSH ×3 (03:56→20:24)
[2023-10-06 07:18] LABS: Glucose, Whole Blood 224 mg/dL (60-115)
[2023-10-06] MEDS: Albuterol/Iprat 2.5/0.5MG 3 ML AMPUL.NEB INHALE ×4 (07:21→19:27)
[2023-10-06] MEDS: Insulin Lispro 100 UNIT/ML 3 ML VIAL SUBCUT ×4 (08:33→20:25)
[2023-10-06] MEDS: Aspirin 81 MG TAB.CHEW PO (08:33)
[2023-10-06] MEDS: hydrALAZINE HCl 25 MG TABLET PO ×3 (08:33→20:20)
[2023-10-06] MEDS: Magnesium Oxide 400 MG TABLET PO (08:33)
[2023-10-06] MEDS: Atorvastatin Calcium 80 MG TABLET PO (08:33)
[2023-10-06] MEDS: lisinopriL 40 MG TABLET PO (08:33)
[2023-10-06] MEDS: DULoxetine HCl 30 MG CAPSULE.DR PO ×2 (08:33→20:24)
[2023-10-06] MEDS: amLODIPine Besylate 10 MG TABLET PO (08:33)
[2023-10-06] MEDS: Furosemide 40 MG TABLET PO (08:34)
[2023-10-06] MEDS: 0.9 % Sodium Chloride Flush 3 ML SYRINGE IVFLUSH ×2 (08:34→16:34)
[2023-10-06] MEDS: Clotrimazole 1 % Cream 15 GM TUBE 1 APPL TOPICAL (08:39)
[2023-10-06] MEDS: Nystatin Powder 15 GM BOTTLE 1 APPL TOPICAL ×2 (08:40→20:25)
--- NOTE | 2023-10-06 10:55 | HO.PM.IMPN ---
Subjective Subjective Date of Service: 10/06/23 Interval History: sob around the same, increased o2 requirements Physical Exam Vital Signs: Vital Signs: Last Vital Signs Temp 97.5 F 10/06/23 07:30 Pulse 73 10/06/23 07:58 Resp 20 10/06/23 07:30 BP 163/81 H 10/06/23 07:58 Pulse Ox 98 10/06/23 07:58 O2 Del Method Nasal Cannula, Hu midified O2 10/06/23 07:30 O2 Flow Rate 6 10/06/23 07:30 FiO2 45 10/05/23 03:24 Oxygen Flow Rate 5 09/29/23 12:47 BMI result Body Mass Index 53.7 Const: Other: Constitutional : Awake, interactive, morbid obese, in mild resp distress Neck : Normal inspection, Supple Cardiovascular : RRR, no JVP, no lower extremity edema Respiratory : decreased bilateral air entry, no crackles, scattered bilateral expiratory wheezes , on O2 supplement Gastrointestinal: soft, lax, Normal bowel sounds, Non tender Skin : Warm, Dry Neurological : Alert & oriented x3, No focal deficit Objective Data Active Medications Acetaminophen (Acetaminophen 325 Mg Tablet) 650 mg PO Q6H PRN PRN Reason: Pain, Mild (Pain Scale 1-3) Last Admin: 10/05/23 13:54 Dose: 650 mg Documented By: ESTEFANY Albuterol/Ipratropium (Albuterol/Iprat 2.5/0.5mg 3 Ml Ampul.Neb) 3 ml INHALE RQ4H WHILE AWAKE [facility] Last Admin: 10/06/23 07:21 Dose: 3 ml Documented By: YO Allopurinol (Allopurinol 300 Mg Tablet) 300 mg PO BID [facility] Last Admin: 10/01/23 07:58 Dose: 300 mg Documented By: PATI Amlodipine Besylate (Amlodipine Besylate 10 Mg Tablet) 10 mg PO DAILY [facility]; Protocol Last Admin: 10/06/23 08:33 Dose: 10 mg Documented By: ZAINA Aspirin (Aspirin 81 Mg Tab.Chew) 81 mg PO DAILY [facility] Last Admin: 10/06/23 08:33 Dose: 81 mg Documented By: ZAINA Atorvastatin Calcium (Atorvastatin Calcium 80 Mg Tablet) 80 mg PO DAILY [facility] Last Admin: 10/06/23 08:33 Dose: 80 mg Documented By: ZAINA Benzonatate (Benzonatate 100 Mg Capsule) 100 mg PO TID PRN PRN Reason: Cough Last Admin: 10/05/23 07:55 Dose: 100 mg Documented By: ESTEFANY Clotrimazole (Clotrimazole 1 % Cream 15 Gm Tube) 1 appl TOPICAL BID [facility]; Protocol Last Admin: 10/06/23 08:39 Dose: 1 appl Documented By: ZAINA Dextrose (Dextrose 50 % 25 Gm/50 Ml Syringe) 25 gm IVPUSH Q15M PRN; Protocol PRN Reason: per Hypoglycemia Standing Ord. Docusate Sodium (Docusate Sodium 100 Mg Capsule) 100 mg PO DAILY PRN PRN Reason: Constipation Duloxetine HCl (Duloxetine Hcl 30 Mg Capsule.Dr) 30 mg PO BID [facility] Last Admin: 10/06/23 08:33 Dose: 30 mg Documented By: ZAINA Enoxaparin Sodium (Enoxaparin Sodium 30 Mg/0.3 Ml Syringe) 30 mg SUBCUT Q24H [facility] Last Admin: 10/05/23 13:53 Dose: 30 mg Documented By: ESTEFANY Furosemide (Furosemide 40 Mg Tablet) 40 mg PO DAILY [facility]; Protocol Last Admin: 10/06/23 08:34 Dose: 40 mg Documented By: ZAINA Furosemide (Furosemide 40 Mg/4 Ml Vial) 40 mg IVPUSH BID@0900,1800 [facility]; Protocol Glucose (Glucose Gel 15 Gm Gel..Gram.) 15 gm PO Q15M PRN; Protocol PRN Reason: per Hypoglycemia Standing Ord. Hydralazine HCl (Hydralazine Hcl 25 Mg Tablet) 25 mg PO TID [facility]; Protocol Last Admin: 10/06/23 08:33 Dose: 25 mg Documented By: ZAINA Doxycycline Hyclate 100 mg/ (Sodium Chloride) 250 mls @ 166.67 mls/hr IV Q12H [facility] Last Infusion: 10/06/23 02:01 Dose: Infused Documented By: ANITHA Insulin Human Lispro (Insulin Lispro 100 Unit/Ml 3 Ml Vial) 0 unit SUBCUT QIDACHS [facility]; Protocol Last Admin: 10/06/23 08:33 Dose: 4 unit Documented By: ZAINA Lisinopril (Lisinopril 40 Mg Tablet) 40 mg PO DAILY [facility]; Protocol Last Admin: 10/06/23 08:33 Dose: 40 mg Documented By: ZAINA Magnesium Oxide (Magnesium Oxide 400 Mg Tablet) 400 mg PO DAILY [facility] Last Admin: 10/06/23 08:33 Dose: 400 mg Documented By: ZAINA Melatonin (Melatonin 3 Mg Tablet) 6 mg PO BEDTIME PRN PRN Reason: Insomnia Last Admin: 10/03/23 21:15 Dose: 6 mg Documented By: GISELE Methylprednisolone Sodium Succinate (Methylprednisolone Sod Succ 125 Mg/2 Ml Vial) 80 mg IVPUSH Q8H [facility] Last Admin: 10/06/23 03:56 Dose: 80 mg Documented By: CASTILNacho Nystatin (Nystatin Powder 15 Gm Bottle) 1 appl TOPICAL BID [facility]; Protocol Last Admin: 10/06/23 08:40 Dose: 1 appl Documented By: ZAINA Ondansetron HCl (Ondansetron Hcl 4 Mg/2 Ml Vial) 4 mg IVPUSH Q8H PRN PRN Reason: Nausea and Vomiting Sodium Chloride (0.9 % Sodium Chloride Flush 3 Ml Syringe) 3 ml IVFLUSH QSHIFT [facility] Last Admin: 10/06/23 08:34 Dose: 3 ml Documented By: ZAINA Labs 10/05/23 06:28 10/05/23 06:28 Labs: Laboratory Results - last 24 hr 10/05/23 10/05/23 10/05/23 13:06 16:48 20:11 POC Glucose 250 H 249 H 246 H 10/06/23 07:11 POC Glucose 224 H Assessment and Plan (1) Pneumonia: Status: Acute (2) Acute kidney injury superimposed on CKD: Status: Acute (3) Acute hypoxic respiratory failure: Status: Acute (4) Influenza: Status: Acute Plan 68M PMH ?HTN, HLD, CVA, [id number] diabetes type 2, pulmonary arterial hypertension, HFpEF, gout, and LALI on CPAP at night who presented to the ED for evaluation for weakness and syncopal episode at home. found to be hypoxic and flu positive Acute hypoxic respiratory failure in the setting of influenza infection Finished Tamiflu 5 days CXR showing bilateral infiltrates, may resemble viral pneumonia DuoNebs, Solu-Medrol, Continue Doxycycline for antiinflammatory effect Pulmonology input appreciated Titrate supplemental O2>92, wean as tolerated CPAP at bedtime acute on chronic hfpef iv lasix, monitor FOREST on CKD3 rsolved Elevated HTN lisinopril full dose Amlodipine 10 mg daily Hydralazine 25 mg tid monitor for hypotension Syncope on presentation, resolved Orthostatic vs vasovagal normal Ortho vitals Elevated lactic acid Secondary to albuterol use and hypoxia, not sepsis No signs of bacterial infection Candidiasis in groin and intertriginous folds Treat with clotrimazole and nystatin cream b.i.d. LALI PAtient denies having CPAP at home use CPAP at night Non-insulin dependent diabetes type 2 Hold metformin Sliding scale insulin Diabetic diet Hx of CVA Continue aspirin, statin Hx of gout Continue allopurinol Obesity class 3 Encourage weight loss DNR/DNI DVT Prophylaxis: Lovenox reason for continued hospitalization: increasing o2 requiriements Quality Stroke Does the patient have a stroke diagnosis?: No VTE Prior VTE?: No VTE Risk Level:: Medical - moderate - high VTE Device Contraindication: Treatment Not Indicated VTE Drug Contraindication: N/A - Med Ordered
[2023-10-06] MEDS: Enoxaparin Sodium 30 MG/0.3 ML SYRINGE SUBCUT (11:49)
[2023-10-06 14:46] LABS: Hematocrit 39.2 % (42.0-52.0); Hemoglobin 12.1 g/dl (14.0-18.0); Mean Corpuscular HGB Conc 30.9 g/dl (31.0-36.0); Mean Corpuscular Hemoglobin 27.4 pg (27.0-33.0); Mean Corpuscular Volume 88.7 fL (80.0-98.0); Mean Platelet Volume 10.5 fL (9.4-12.4); Platelet Count 245 X10*3/uL (160-400); Red Blood Count 4.42 X10*6/uL (4.60-5.80); Red Cell Distribution Width 16.2 % (11.0-16.0); White Blood Count 12.2 X10*3/uL (4.8-10.8)
[2023-10-06 15:09] LABS: Anion Gap 15 (12-20); Blood Urea Nitrogen 55 mg/dL (9-16); Calcium 9.3 mg/dL (8.4-10.2); Carbon Dioxide 31 mmol/L (22-29); Chloride 102 mmol/L (96-108); Creatinine Clr Calc Pharmacy 66.5; Estimated Glomerular Filt Rate 46; Glucose Random 341 mg/dL (60-115); Potassium 3.8 mmol/L (3.3-5.1); Sodium 144 mmol/L (135-145)
[2023-10-07] VITALS (9 sets, daily range): BP systolic 141–193; BP diastolic 80–92; PULSE 61–85; RESP 18–24; TEMP 36–36.6; O2SAT 92–98
[2023-10-07] MEDS: Doxycycline Hyclate 100 MG in 0.9 % Sodium Chloride 250 ML 166.67 MG IV ×2 (00:16→14:46)
[2023-10-07] MEDS: 0.9 % Sodium Chloride Flush 3 ML SYRINGE IVFLUSH ×4 (00:16→20:15)
[2023-10-07 07:21] LABS: Hemoglobin 12.2 g/dl (14.0-18.0); Mean Corpuscular HGB Conc 30.5 g/dl (31.0-36.0); Mean Corpuscular Hemoglobin 27.2 pg (27.0-33.0); Mean Corpuscular Volume 89.1 fL (80.0-98.0); Mean Platelet Volume 11.1 fL (9.4-12.4); Platelet Count 215 X10*3/uL (160-400); Red Blood Count 4.49 X10*6/uL (4.60-5.80); Red Cell Distribution Width 16.2 % (11.0-16.0); White Blood Count 10.1 X10*3/uL (4.8-10.8)
[2023-10-07 07:39] LABS: Anion Gap 16 (12-20); Blood Urea Nitrogen 52 mg/dL (9-16); Calcium 9.2 mg/dL (8.4-10.2); Carbon Dioxide 30 mmol/L (22-29); Chloride 103 mmol/L (96-108); Creatinine Clr Calc Pharmacy 77.2; Estimated Glomerular Filt Rate 55; Glucose Fasting 262 mg/dL (60-99); Magnesium 2.8 mg/dL (1.6-2.6); Potassium 4.1 mmol/L (3.3-5.1); Sodium 145 mmol/L (135-145)
--- NOTE | 2023-10-07 09:11 | HO.PM.IMPN ---
Subjective Subjective Date of Service: 10/07/23 Interval History: sob about the same Physical Exam Vital Signs: Vital Signs: Last Vital Signs Temp 97.2 F 10/07/23 07:53 Pulse 85 10/07/23 07:53 Resp 20 10/07/23 04:52 BP 154/85 H 10/07/23 07:53 Pulse Ox 97 10/07/23 07:53 O2 Del Method Nasal Cannula 10/07/23 07:53 O2 Flow Rate 7 10/07/23 07:53 FiO2 45 10/05/23 03:24 Oxygen Flow Rate 5 09/29/23 12:47 BMI result Body Mass Index 53.7 Const: Other: Constitutional : Awake, interactive, morbid obese, in mild resp distress Neck : Normal inspection, Supple Cardiovascular : RRR, no JVP, no lower extremity edema Respiratory : decreased bilateral air entry, no crackles, scattered bilateral expiratory wheezes , on O2 supplement Gastrointestinal: soft, lax, Normal bowel sounds, Non tender Skin : Warm, Dry Neurological : Alert & oriented x3, No focal deficit Objective Data Active Medications Acetaminophen (Acetaminophen 325 Mg Tablet) 650 mg PO Q6H PRN PRN Reason: Pain, Mild (Pain Scale 1-3) Last Admin: 10/05/23 13:54 Dose: 650 mg Documented By: ESTEFANY Allopurinol (Allopurinol 300 Mg Tablet) 300 mg PO BID [facility] Last Admin: 10/01/23 07:58 Dose: 300 mg Documented By: PATI Amlodipine Besylate (Amlodipine Besylate 10 Mg Tablet) 10 mg PO DAILY [facility]; Protocol Last Admin: 10/06/23 08:33 Dose: 10 mg Documented By: ZAINA Aspirin (Aspirin 81 Mg Tab.Chew) 81 mg PO DAILY [facility] Last Admin: 10/06/23 08:33 Dose: 81 mg Documented By: ZAINA Atorvastatin Calcium (Atorvastatin Calcium 80 Mg Tablet) 80 mg PO DAILY [facility] Last Admin: 10/06/23 08:33 Dose: 80 mg Documented By: ZAINA Benzonatate (Benzonatate 100 Mg Capsule) 100 mg PO TID PRN PRN Reason: Cough Last Admin: 10/05/23 07:55 Dose: 100 mg Documented By: ESTEFANY Clotrimazole (Clotrimazole 1 % Cream 15 Gm Tube) 1 appl TOPICAL BID [facility]; Protocol Last Admin: 10/06/23 20:29 Dose: Not Given Documented By: SIXTO Non-Admin Reason: Patient Refused Dextrose (Dextrose 50 % 25 Gm/50 Ml Syringe) 25 gm IVPUSH Q15M PRN; Protocol PRN Reason: per Hypoglycemia Standing Ord. Docusate Sodium (Docusate Sodium 100 Mg Capsule) 100 mg PO DAILY PRN PRN Reason: Constipation Duloxetine HCl (Duloxetine Hcl 30 Mg Capsule.Dr) 30 mg PO BID [facility] Last Admin: 10/06/23 20:24 Dose: 30 mg Documented By: SIXTO Enoxaparin Sodium (Enoxaparin Sodium 30 Mg/0.3 Ml Syringe) 30 mg SUBCUT Q24H [facility] Last Admin: 10/06/23 11:49 Dose: 30 mg Documented By: ZAINA Furosemide (Furosemide 40 Mg Tablet) 40 mg PO DAILY [facility]; Protocol Last Admin: 10/06/23 08:34 Dose: 40 mg Documented By: ZAINA Furosemide (Furosemide 40 Mg/4 Ml Vial) 40 mg IVPUSH BID@0900,1800 [facility]; Protocol Last Admin: 10/06/23 18:21 Dose: 40 mg Documented By: SIXTO Glucose (Glucose Gel 15 Gm Gel..Gram.) 15 gm PO Q15M PRN; Protocol PRN Reason: per Hypoglycemia Standing Ord. Hydralazine HCl (Hydralazine Hcl 25 Mg Tablet) 25 mg PO TID [facility]; Protocol Last Admin: 10/06/23 20:20 Dose: 25 mg Documented By: SIXTO Doxycycline Hyclate 100 mg/ (Sodium Chloride) 250 mls @ 166.67 mls/hr IV Q12H [facility] Last Infusion: 10/07/23 01:57 Dose: Infused Documented By: DERRELL Insulin Human Lispro (Insulin Lispro 100 Unit/Ml 3 Ml Vial) 0 unit SUBCUT QIDACHS [facility]; Protocol Last Admin: 10/06/23 20:25 Dose: 4 unit Documented By: SIXTO Lisinopril (Lisinopril 40 Mg Tablet) 40 mg PO DAILY [facility]; Protocol Last Admin: 10/06/23 08:33 Dose: 40 mg Documented By: ZAINA Magnesium Oxide (Magnesium Oxide 400 Mg Tablet) 400 mg PO DAILY [facility] Last Admin: 10/06/23 08:33 Dose: 400 mg Documented By: ZAINA Melatonin (Melatonin 3 Mg Tablet) 6 mg PO BEDTIME PRN PRN Reason: Insomnia Last Admin: 10/03/23 21:15 Dose: 6 mg Documented By: GISELE Methylprednisolone Sodium Succinate (Methylprednisolone Sod Succ 125 Mg/2 Ml Vial) 80 mg IVPUSH Q8H [facility] Last Admin: 10/07/23 04:27 Dose: 80 mg Documented By: DERRELL Nystatin (Nystatin Powder 15 Gm Bottle) 1 appl TOPICAL BID [facility]; Protocol Last Admin: 10/06/23 20:25 Dose: 1 appl Documented By: SIXTO Ondansetron HCl (Ondansetron Hcl 4 Mg/2 Ml Vial) 4 mg IVPUSH Q8H PRN PRN Reason: Nausea and Vomiting Sodium Chloride (0.9 % Sodium Chloride Flush 3 Ml Syringe) 3 ml IVFLUSH QSHIFT [facility] Last Admin: 10/07/23 00:16 Dose: 3 ml Documented By: DERRELL Labs 10/07/23 06:34 10/07/23 06:34 Labs: Laboratory Results - last 24 hr 10/06/23 10/06/23 10/06/23 11:05 14:27 15:54 MCV 88.7 MCH 27.4 MCHC 30.9 L RDW 16.2 H Plt Count 245 MPV 10.5 Absolute Nucleated RBC 0.000 Nucleated RBC % (auto) 0.0 Anion Gap 15 Estim Creat Clear Calc 66.5 Estimated GFR 46 POC Glucose 301 H 285 H Random Glucose 341 H Fasting Glucose Calcium 9.3 Magnesium 10/06/23 10/07/23 10/07/23 20:11 06:34 07:18 MCV 89.1 MCH 27.2 MCHC 30.5 L RDW 16.2 H Plt Count 215 MPV 11.1 Absolute Nucleated RBC 0.000 Nucleated RBC % (auto) 0.0 Anion Gap 16 Estim Creat Clear Calc 77.2 Estimated GFR 55 POC Glucose 248 H 245 H Random Glucose Fasting Glucose 262 H Calcium 9.2 Magnesium 2.8 H Assessment and Plan (1) Pneumonia: Status: Acute (2) Acute kidney injury superimposed on CKD: Status: Acute (3) Acute hypoxic respiratory failure: Status: Acute (4) Influenza: Status: Acute Plan 68M PMH ?HTN, HLD, CVA, [id number] diabetes type 2, pulmonary arterial hypertension, HFpEF, gout, and LALI on CPAP at night who presented to the ED for evaluation for weakness and syncopal episode at home. found to be hypoxic and flu positive Acute hypoxic respiratory failure in the setting of influenza infection Finished Tamiflu 5 days CXR showing bilateral infiltrates, may resemble viral pneumonia DuoNeshayy, Solu-Medrol, Continue Doxycycline for antiinflammatory effect Pulmonology input appreciated Titrate supplemental O2>92, wean as tolerated CPAP at bedtime acute on chronic hfpef improving with iv lasix, monitor FOREST on CKD3 resolved Elevated HTN lisinopril Amlodipine 10 mg daily Hydralazine 25 mg tid monitor for hypotension Syncope on presentation, resolved Orthostatic vs vasovagal normal Ortho vitals Elevated lactic acid Secondary to albuterol use and hypoxia, not sepsis No signs of bacterial infection Candidiasis in groin and intertriginous folds Treat with clotrimazole and nystatin cream b.i.d. LALI PAtient denies having CPAP at home use CPAP at night Non-insulin dependent diabetes type 2 Hold metformin Sliding scale insulin Diabetic diet Hx of CVA Continue aspirin, statin Hx of gout Continue allopurinol Obesity class 3 Encourage weight loss DNR/DNI DVT Prophylaxis: Lovenox reason for continued hospitalization: hypoxia Quality Stroke Does the patient have a stroke diagnosis?: No VTE Prior VTE?: No VTE Risk Level:: Medical - moderate - high VTE Device Contraindication: Treatment Not Indicated VTE Drug Contraindication: N/A - Med Ordered
[2023-10-07] MEDS: hydrALAZINE HCl 25 MG TABLET PO ×3 (10:15→20:11)
[2023-10-07] MEDS: Aspirin 81 MG TAB.CHEW PO (10:15)
[2023-10-07] MEDS: DULoxetine HCl 30 MG CAPSULE.DR PO ×2 (10:15→20:11)
[2023-10-07] MEDS: Atorvastatin Calcium 80 MG TABLET PO (10:16)
[2023-10-07] MEDS: Enoxaparin Sodium 30 MG/0.3 ML SYRINGE SUBCUT (10:16)
[2023-10-07] MEDS: Insulin Lispro 100 UNIT/ML 3 ML VIAL SUBCUT ×4 (10:16→20:14)
[2023-10-07] MEDS: lisinopriL 40 MG TABLET PO (10:16)
[2023-10-07] MEDS: Magnesium Oxide 400 MG TABLET PO (10:16)
[2023-10-07] MEDS: Clotrimazole 1 % Cream 15 GM TUBE 1 APPL TOPICAL (14:47)
[2023-10-07] MEDS: Nystatin Powder 15 GM BOTTLE 1 APPL TOPICAL ×2 (14:48→20:11)
[2023-10-07] MEDS: Benzonatate 100 MG CAPSULE PO (20:11)
--- NOTE | 2023-10-07 23:51 | PC.NURSE ---
Report given to oncoming RN assuming care of patient at this time.
[2023-10-08] VITALS (8 sets, daily range): BP systolic 123–171; BP diastolic 64–83; PULSE 70–86; RESP 20–23; TEMP 35.7–36.3; O2SAT 92–97
[2023-10-08] MEDS: Doxycycline Hyclate 100 MG in 0.9 % Sodium Chloride 250 ML 166.67 MG IV (00:11)
[2023-10-08] MEDS: Acetaminophen 325 MG TABLET 650 MG PO ×2 (04:31→14:19)
[2023-10-08] MEDS: Benzonatate 100 MG CAPSULE PO (04:31)
--- NOTE | 2023-10-08 09:13 | MHC.CM.PN ---
EMR REVIEWED, PT W/SOB AND FLU IS NOW ON 5L O2 NC, PER HOSPITALIST ANTIC PT WILL REMAIN INPT OVER W/E, [facility] FOLLOWING AND UPDATED, CM WILL CONT TO FOLLOW DC NEEDS.
[2023-10-08] MEDS: DULoxetine HCl 30 MG CAPSULE.DR PO (10:10)
[2023-10-08] MEDS: Aspirin 81 MG TAB.CHEW PO (10:10)
[2023-10-08] MEDS: Magnesium Oxide 400 MG TABLET PO (10:10)
[2023-10-08] MEDS: hydrALAZINE HCl 25 MG TABLET PO (10:10)
[2023-10-08] MEDS: Atorvastatin Calcium 80 MG TABLET PO (10:11)
[2023-10-08] MEDS: Enoxaparin Sodium 30 MG/0.3 ML SYRINGE SUBCUT (10:11)
[2023-10-08] MEDS: 0.9 % Sodium Chloride Flush 3 ML SYRINGE IVFLUSH ×3 (10:11→21:34)
[2023-10-08] MEDS: Insulin Lispro 100 UNIT/ML 3 ML VIAL SUBCUT ×3 (10:12→21:29)
[2023-10-08] MEDS: Nystatin Powder 15 GM BOTTLE 1 APPL TOPICAL (10:14)
--- NOTE | 2023-10-08 10:14 | HO.WOUND ---
Wound Consult:Follow Up 68yr old male admitted to [facility] on?09/29/23 20:22 - See progress notes and H&P for detailed history. Wound consult placed for abdominal fold and groin fungal dermatitis noted - antifungal cream in place. Arrival to bedside pt was agreeable to assessment and photo documentation. Pt reports significant improvment in fungal dermaittis and overall skin tissue - assessment detailed below. Antifungal powder treatment aiding to resolve the fungal dermatitis along with MASD - No new topical treatments needed at this time. Initial assessment 10/08/23 assessment - marked improvement Abdominal, groin and thigh skin folds Etiology: ??Fungal Dermatitis and MASD (Moisture Associated Skin Damage) Wound Bed: resolving mild mirrored pink erythema no open lesions at base of skin fold Drainage / Odor: No yeast odor noted Edges: ? Mirrored and resolving Cass wound: No Induration, No Fluctuance and No Warmth noted Pain: Pt denies pain and itching Goals of Treatment: ? continue with antifungal powder to aid in translocating moisture as there are no open lesions noted at this time. -Interdry application Recommendations: 1. Monitor for incontinence and moisture control, use barrier creams when needed for prevention and treatment. 2. Order low air loss mattress. 3. Maintain blood glucose levels per Providers orders. 4. Abdominal, Groin and Thigh Skin Folds - Cleanse with PH balance wipes, pat dry with soft cloth.? Apply antifungal power to assist with moisture management.? Be sure to dust of excess powder to prevent caking on skin and in folds. Apply per provider orders -twice daily. Tuck Interdry AG Sheet into skin fold to wick and translocate moisture away from skin fold.? Be sure to leave at least 2 inch of fabric exposed outside of skin fold.? Change when soiled. Re-consult wound care Nurse for wound deterioration or wound changes.
--- NOTE | 2023-10-08 10:26 | HO.PM.IMPN ---
Subjective Subjective Date of Service: 10/08/23 Interval History: improving Physical Exam Vital Signs: Vital Signs: Last Vital Signs Temp 97.3 F 10/08/23 08:00 Pulse 86 10/08/23 08:00 Resp 22 H 10/08/23 08:00 BP 136/78 10/08/23 08:00 Pulse Ox 92 10/08/23 08:00 O2 Del Method Nasal Cannula 10/08/23 08:00 O2 Flow Rate 5 10/08/23 08:00 FiO2 45 10/05/23 03:24 Oxygen Flow Rate 5 09/29/23 12:47 BMI result Body Mass Index 53.7 Const: Other: Constitutional : Awake, interactive, morbid obese, in mild resp distress Neck : Normal inspection, Supple Cardiovascular : RRR, no JVP, no lower extremity edema Respiratory : decreased bilateral air entry, no crackles, scattered bilateral expiratory wheezes , on O2 supplement Gastrointestinal: soft, lax, Normal bowel sounds, Non tender Skin : Warm, Dry Neurological : Alert & oriented x3, No focal deficit Objective Data Active Medications Acetaminophen (Acetaminophen 325 Mg Tablet) 650 mg PO Q6H PRN PRN Reason: Pain, Mild (Pain Scale 1-3) Last Admin: 10/08/23 04:31 Dose: 650 mg Documented By: DERRELL Allopurinol (Allopurinol 300 Mg Tablet) 300 mg PO BID [facility] Last Admin: 10/01/23 07:58 Dose: 300 mg Documented By: PATI Amlodipine Besylate (Amlodipine Besylate 10 Mg Tablet) 10 mg PO DAILY [facility]; Protocol Last Admin: 10/08/23 10:11 Dose: 10 mg Documented By: YASMIN Aspirin (Aspirin 81 Mg Tab.Chew) 81 mg PO DAILY [facility] Last Admin: 10/08/23 10:10 Dose: 81 mg Documented By: YASMIN Atorvastatin Calcium (Atorvastatin Calcium 80 Mg Tablet) 80 mg PO DAILY [facility] Last Admin: 10/08/23 10:11 Dose: 80 mg Documented By: YASMIN Benzonatate (Benzonatate 100 Mg Capsule) 100 mg PO TID PRN PRN Reason: Cough Last Admin: 10/08/23 04:31 Dose: 100 mg Documented By: DERRELL Clotrimazole (Clotrimazole 1 % Cream 15 Gm Tube) 1 appl TOPICAL BID [facility]; Protocol Last Admin: 10/08/23 10:13 Dose: 1 appl Documented By: YASMIN Dextrose (Dextrose 50 % 25 Gm/50 Ml Syringe) 25 gm IVPUSH Q15M PRN; Protocol PRN Reason: per Hypoglycemia Standing Ord. Docusate Sodium (Docusate Sodium 100 Mg Capsule) 100 mg PO DAILY PRN PRN Reason: Constipation Doxycycline Monohydrate (Doxycycline Monohydrate 100 Mg Capsule) 100 mg PO Q12H [facility] Last Admin: 10/08/23 10:11 Dose: 100 mg Documented By: YASMIN Duloxetine HCl (Duloxetine Hcl 30 Mg Capsule.Dr) 30 mg PO BID [facility] Last Admin: 10/08/23 10:10 Dose: 30 mg Documented By: YASMIN Enoxaparin Sodium (Enoxaparin Sodium 30 Mg/0.3 Ml Syringe) 30 mg SUBCUT Q24H [facility] Last Admin: 10/08/23 10:11 Dose: 30 mg Documented By: YASMIN Furosemide (Furosemide 40 Mg Tablet) 40 mg PO DAILY [facility]; Protocol Last Admin: 10/06/23 08:34 Dose: 40 mg Documented By: ZAINA Furosemide (Furosemide 40 Mg/4 Ml Vial) 40 mg IVPUSH BID@0900,1800 [facility]; Protocol Last Admin: 10/08/23 10:12 Dose: 40 mg Documented By: YASMIN Glucose (Glucose Gel 15 Gm Gel..Gram.) 15 gm PO Q15M PRN; Protocol PRN Reason: per Hypoglycemia Standing Ord. Hydralazine HCl (Hydralazine Hcl 25 Mg Tablet) 25 mg PO TID [facility]; Protocol Last Admin: 10/08/23 10:10 Dose: 25 mg Documented By: YASMIN Insulin Human Lispro (Insulin Lispro 100 Unit/Ml 3 Ml Vial) 0 unit SUBCUT QIDACHS [facility]; Protocol Last Admin: 10/08/23 10:12 Dose: 4 unit Documented By: YASMIN Lisinopril (Lisinopril 40 Mg Tablet) 40 mg PO DAILY [facility]; Protocol Last Admin: 10/08/23 10:14 Dose: 40 mg Documented By: YASMIN Magnesium Oxide (Magnesium Oxide 400 Mg Tablet) 400 mg PO DAILY [facility] Last Admin: 10/08/23 10:10 Dose: 400 mg Documented By: YASMIN Melatonin (Melatonin 3 Mg Tablet) 6 mg PO BEDTIME PRN PRN Reason: Insomnia Last Admin: 10/03/23 21:15 Dose: 6 mg Documented By: GISELE Methylprednisolone Sodium Succinate (Methylprednisolone Sod Succ 125 Mg/2 Ml Vial) 40 mg IVPUSH Q12H [facility] Last Admin: 10/08/23 04:30 Dose: 40 mg Documented By: ANTOIC Nystatin (Nystatin Powder 15 Gm Bottle) 1 appl TOPICAL BID [facility]; Protocol Last Admin: 10/08/23 10:14 Dose: 1 appl Documented By: YASMIN Ondansetron HCl (Ondansetron Hcl 4 Mg/2 Ml Vial) 4 mg IVPUSH Q8H PRN PRN Reason: Nausea and Vomiting Sodium Chloride (0.9 % Sodium Chloride Flush 3 Ml Syringe) 3 ml IVFLUSH QSHIFT [facility] Last Admin: 10/08/23 10:11 Dose: 3 ml Documented By: YASMIN Labs 10/08/23 07:46 10/08/23 07:46 Labs: Laboratory Results - last 24 hr 10/07/23 10/07/23 10/07/23 11:17 16:19 19:23 MCV MCH MCHC RDW Plt Count MPV Absolute Nucleated RBC Nucleated RBC % (auto) Anion Gap Estim Creat Clear Calc Estimated GFR POC Glucose 265 H 201 H 178 H Fasting Glucose Calcium 10/08/23 10/08/23 07:27 07:46 MCV 89.2 MCH 27.8 MCHC 31.2 RDW 15.9 Plt Count 193 MPV 11.2 Absolute Nucleated RBC 0.000 Nucleated RBC % (auto) 0.0 Anion Gap 14 Estim Creat Clear Calc 86.6 Estimated GFR > 60 POC Glucose 210 H Fasting Glucose 243 H Calcium 9.3 Assessment and Plan (1) Pneumonia: Status: Acute (2) Acute kidney injury superimposed on CKD: Status: Acute (3) Acute hypoxic respiratory failure: Status: Acute (4) Influenza: Status: Acute Plan 68M PMH ?HTN, HLD, CVA, [id number] diabetes type 2, pulmonary arterial hypertension, HFpEF, gout, and LALI on CPAP at night who presented to the ED for evaluation for weakness and syncopal episode at home. found to be hypoxic and flu positive Acute hypoxic respiratory failure in the setting of influenza infection Finished Tamiflu 5 days CXR showing bilateral infiltrates, may resemble viral pneumonia DuPearl Solu-Medrol, Continue Doxycycline for antiinflammatory effect Pulmonology input appreciated Titrate supplemental O2>92, wean as tolerated CPAP at bedtime acute on chronic hfpef improving with iv lasix, monitor FOREST on CKD3 resolved Elevated HTN lisinopril Amlodipine 10 mg daily Hydralazine 25 mg tid monitor for hypotension Syncope on presentation, resolved Orthostatic vs vasovagal normal Ortho vitals Elevated lactic acid Secondary to albuterol use and hypoxia, not sepsis No signs of bacterial infection Candidiasis in groin and intertriginous folds Treat with clotrimazole and nystatin cream b.i.d. LALI PAtient denies having CPAP at home use CPAP at night Non-insulin dependent diabetes type 2 Hold metformin Sliding scale insulin Diabetic diet Hx of CVA Continue aspirin, statin Hx of gout Continue allopurinol Obesity class 3 Encourage weight loss DNR/DNI DVT Prophylaxis: Lovenox reason for continued hospitalization: hypoxia Quality Stroke Does the patient have a stroke diagnosis?: No VTE Prior VTE?: No VTE Risk Level:: Medical - moderate - high VTE Device Contraindication: Treatment Not Indicated VTE Drug Contraindication: N/A - Med Ordered
[2023-10-08] MEDS: Docusate Sodium 100 MG CAPSULE PO (18:34)
[2023-10-09] VITALS (7 sets, daily range): BP systolic 133–170; BP diastolic 63–84; PULSE 60–81; RESP 20–22; TEMP 35.9–36.8; O2SAT 91–100
[2023-10-09] MEDS: Acetaminophen 325 MG TABLET 650 MG PO ×2 (03:30→21:11)
[2023-10-09] MEDS: Magnesium Oxide 400 MG TABLET PO (08:33)
[2023-10-09] MEDS: Aspirin 81 MG TAB.CHEW PO (08:33)
[2023-10-09] MEDS: Benzonatate 100 MG CAPSULE PO (08:33)
[2023-10-09] MEDS: Atorvastatin Calcium 80 MG TABLET PO (08:34)
[2023-10-09] MEDS: 0.9 % Sodium Chloride Flush 3 ML SYRINGE IVFLUSH ×3 (08:35→21:12)
[2023-10-09] MEDS: Enoxaparin Sodium 30 MG/0.3 ML SYRINGE SUBCUT (08:39)
[2023-10-09] MEDS: Insulin Lispro 100 UNIT/ML 3 ML VIAL SUBCUT ×2 (08:41→12:20)
[2023-10-09 09:03] LABS: Anion Gap 15 (12-20); Blood Urea Nitrogen 51 mg/dL (9-16); Calcium 9.5 mg/dL (8.4-10.2); Carbon Dioxide 37 mmol/L (22-29); Chloride 97 mmol/L (96-108); Creatinine Clr Calc Pharmacy 77.2; Estimated Glomerular Filt Rate 55; Glucose Fasting 279 mg/dL (60-99); Potassium 4.1 mmol/L (3.3-5.1); Sodium 145 mmol/L (135-145)
--- NOTE | 2023-10-09 11:29 | HO.PM.IMPN ---
Subjective Subjective Date of Service: 10/09/23 Interval History: improving Physical Exam Vital Signs: Vital Signs: Last Vital Signs Temp 97 F 10/09/23 11:02 Pulse 81 10/09/23 11:02 Resp 20 10/09/23 11:02 BP 152/63 H 10/09/23 11:02 Pulse Ox 98 10/09/23 11:02 O2 Del Method Nasal Cannula 10/09/23 11:02 O2 Flow Rate 3 10/09/23 11:02 FiO2 45 10/05/23 03:24 Oxygen Flow Rate 5 09/29/23 12:47 BMI result Body Mass Index 53.7 Const: Other: Constitutional : Awake, interactive, morbid obese, in mild resp distress Neck : Normal inspection, Supple Cardiovascular : RRR, no JVP, no lower extremity edema Respiratory : decreased bilateral air entry, no crackles, scattered bilateral expiratory wheezes , on O2 supplement Gastrointestinal: soft, lax, Normal bowel sounds, Non tender Skin : Warm, Dry Neurological : Alert & oriented x3, No focal deficit Objective Data Active Medications Acetaminophen (Acetaminophen 325 Mg Tablet) 650 mg PO Q6H PRN PRN Reason: Pain, Mild (Pain Scale 1-3) Last Admin: 10/09/23 03:30 Dose: 650 mg Documented By: CURRY Allopurinol (Allopurinol 300 Mg Tablet) 300 mg PO BID [facility] Last Admin: 10/01/23 07:58 Dose: 300 mg Documented By: PATI Amlodipine Besylate (Amlodipine Besylate 10 Mg Tablet) 10 mg PO DAILY [facility]; Protocol Last Admin: 10/09/23 08:33 Dose: 10 mg Documented By: ESTEFANY Aspirin (Aspirin 81 Mg Tab.Chew) 81 mg PO DAILY [facility] Last Admin: 10/09/23 08:33 Dose: 81 mg Documented By: ESTEFANY Atorvastatin Calcium (Atorvastatin Calcium 80 Mg Tablet) 80 mg PO DAILY [facility] Last Admin: 10/09/23 08:34 Dose: 80 mg Documented By: ESTEFANY Benzonatate (Benzonatate 100 Mg Capsule) 100 mg PO TID PRN PRN Reason: Cough Last Admin: 10/09/23 08:33 Dose: 100 mg Documented By: ESTEFANY Clotrimazole (Clotrimazole 1 % Cream 15 Gm Tube) 1 appl TOPICAL BID [facility]; Protocol Last Admin: 10/09/23 08:38 Dose: 1 appl Documented By: ESTEFANY Dextrose (Dextrose 50 % 25 Gm/50 Ml Syringe) 25 gm IVPUSH Q15M PRN; Protocol PRN Reason: per Hypoglycemia Standing Ord. Docusate Sodium (Docusate Sodium 100 Mg Capsule) 100 mg PO DAILY PRN PRN Reason: Constipation Last Admin: 10/08/23 18:34 Dose: 100 mg Documented By: YASMIN Doxycycline Monohydrate (Doxycycline Monohydrate 100 Mg Capsule) 100 mg PO Q12H [facility] Last Admin: 10/09/23 08:34 Dose: 100 mg Documented By: ESTEFANY Duloxetine HCl (Duloxetine Hcl 30 Mg Capsule.) 30 mg PO BID [facility] Last Admin: 10/09/23 08:33 Dose: 30 mg Documented By: ESTEFANY Enoxaparin Sodium (Enoxaparin Sodium 30 Mg/0.3 Ml Syringe) 30 mg SUBCUT Q24H [facility] Last Admin: 10/09/23 08:39 Dose: 30 mg Documented By: ESTEFANY Furosemide (Furosemide 40 Mg Tablet) 40 mg PO DAILY [facility]; Protocol Last Admin: 10/06/23 08:34 Dose: 40 mg Documented By: ZAINA Furosemide (Furosemide 40 Mg/4 Ml Vial) 40 mg IVPUSH BID@0900,1800 [facility]; Protocol Last Admin: 10/09/23 08:34 Dose: 40 mg Documented By: ESTEFANY Glucose (Glucose Gel 15 Gm Gel..Gram.) 15 gm PO Q15M PRN; Protocol PRN Reason: per Hypoglycemia Standing Ord. Hydralazine HCl (Hydralazine Hcl 25 Mg Tablet) 25 mg PO TID [facility]; Protocol Last Admin: 10/09/23 08:34 Dose: 25 mg Documented By: ESTEFANY Insulin Human Lispro (Insulin Lispro 100 Unit/Ml 3 Ml Vial) 0 unit SUBCUT QIDACHS [facility]; Protocol Last Admin: 10/09/23 08:41 Dose: 6 unit Documented By: ESTEFANY Lisinopril (Lisinopril 40 Mg Tablet) 40 mg PO DAILY [facility]; Protocol Last Admin: 10/09/23 08:34 Dose: 40 mg Documented By: ESTEFANY Magnesium Oxide (Magnesium Oxide 400 Mg Tablet) 400 mg PO DAILY [facility] Last Admin: 10/09/23 08:33 Dose: 400 mg Documented By: ESTEFANY Melatonin (Melatonin 3 Mg Tablet) 6 mg PO BEDTIME PRN PRN Reason: Insomnia Last Admin: 10/03/23 21:15 Dose: 6 mg Documented By: GISELE Methylprednisolone Sodium Succinate (Methylprednisolone Sod Succ 125 Mg/2 Ml Vial) 40 mg IVPUSH Q12H [facility] Last Admin: 10/09/23 03:30 Dose: 40 mg Documented By: CURRY Nystatin (Nystatin Powder 15 Gm Bottle) 1 appl TOPICAL BID [facility]; Protocol Last Admin: 10/09/23 08:38 Dose: 1 appl Documented By: ESTEFAYN Ondansetron HCl (Ondansetron Hcl 4 Mg/2 Ml Vial) 4 mg IVPUSH Q8H PRN PRN Reason: Nausea and Vomiting Sodium Chloride (0.9 % Sodium Chloride Flush 3 Ml Syringe) 3 ml IVFLUSH QSHIFT [facility] Last Admin: 10/09/23 08:35 Dose: 3 ml Documented By: ESTEFANY Labs 10/09/23 08:27 10/09/23 08:27 Labs: Laboratory Results - last 24 hr 10/08/23 10/08/23 10/08/23 11:37 15:42 20:04 MCV MCH MCHC RDW Plt Count MPV Absolute Nucleated RBC Nucleated RBC % (auto) Anion Gap Estim Creat Clear Calc Estimated GFR POC Glucose 263 H 247 H 235 H Fasting Glucose Calcium 10/09/23 10/09/23 07:20 08:27 MCV 87.9 MCH 27.3 MCHC 31.0 RDW 15.5 Plt Count 287 D MPV 10.6 Absolute Nucleated RBC 0.000 Nucleated RBC % (auto) 0.0 Anion Gap 15 Estim Creat Clear Calc 77.2 Estimated GFR 55 POC Glucose 257 H Fasting Glucose 279 H Calcium 9.5 Assessment and Plan (1) Pneumonia: Status: Acute (2) Acute kidney injury superimposed on CKD: Status: Acute (3) Acute hypoxic respiratory failure: Status: Acute (4) Influenza: Status: Acute Plan 68M PMH ?HTN, HLD, CVA, [id number] diabetes type 2, pulmonary arterial hypertension, HFpEF, gout, and LALI on CPAP at night who presented to the ED for evaluation for weakness and syncopal episode at home. found to be hypoxic and flu positive Acute hypoxic respiratory failure in the setting of influenza infection Finished Tamiflu 5 days CXR showing bilateral infiltrates, may resemble viral pneumonia Lizzy FraseruZina, Continue Doxycycline for antiinflammatory effect Pulmonology input appreciated Titrate supplemental O2>92, wean as tolerated CPAP at bedtime acute on chronic hfpef improved with iv lasix, will change back to po maitnejeff, monitor FOREST on CKD3 resolved Elevated HTN lisinopril Amlodipine 10 mg daily Hydralazine 25 mg tid monitor for hypotension Syncope on presentation, resolved Orthostatic vs vasovagal normal Ortho vitals Elevated lactic acid Secondary to albuterol use and hypoxia, not sepsis No signs of bacterial infection Candidiasis in groin and intertriginous folds Treat with clotrimazole and nystatin cream b.i.d. LALI PAtient denies having CPAP at home use CPAP at night Non-insulin dependent diabetes type 2 Hold metformin Sliding scale insulin Diabetic diet Hx of CVA Continue aspirin, statin Hx of gout Continue allopurinol Obesity class 3 Encourage weight loss DNR/DNI DVT Prophylaxis: Lovenox reason for continued hospitalization: awaiting auth Quality Stroke Does the patient have a stroke diagnosis?: No VTE Prior VTE?: No VTE Risk Level:: Medical - moderate - high VTE Device Contraindication: Treatment Not Indicated VTE Drug Contraindication: N/A - Med Ordered
--- NOTE | 2023-10-09 12:18 | MHC.CM.PN ---
Per MD, pt is medically cleared for D/C pending STR placement. [facility] offered pt a bed, pt and his accepted. Facility has gone for auth. updated. CM will continue to follow.
[2023-10-09] MEDS: Melatonin 3 MG TABLET 6 MG PO (21:11)
[2023-10-10] VITALS (11 sets, daily range): BP systolic 112–164; BP diastolic 61–80; PULSE 51–84; RESP 18–20; TEMP 35.9–37.3; O2SAT 90–99
--- NOTE | 2023-10-10 05:42 | PC.NURSE ---
md notified of pt HR 30-40's. rhythm noted to be afib, EKG done which verified rhythm. pt asymptomatic, denies any discomfort.
[2023-10-10] MEDS: Magnesium Oxide 400 MG TABLET PO (09:20)
[2023-10-10] MEDS: Aspirin 81 MG TAB.CHEW PO (09:20)
[2023-10-10] MEDS: 0.9 % Sodium Chloride Flush 3 ML SYRINGE IVFLUSH ×3 (09:21→21:20)
[2023-10-10] MEDS: Atorvastatin Calcium 80 MG TABLET PO (09:21)
[2023-10-10] MEDS: Enoxaparin Sodium 30 MG/0.3 ML SYRINGE SUBCUT (09:22)
--- NOTE | 2023-10-10 10:11 | HO.PM.IMPN ---
Subjective Subjective Date of Service: 10/10/23 Interval History: improving Physical Exam Vital Signs: Vital Signs: Last Vital Signs Temp 97 F 10/10/23 08:00 Pulse 65 10/10/23 08:00 Resp 20 10/10/23 08:00 BP 142/80 H 10/10/23 08:00 Pulse Ox 97 10/10/23 08:00 O2 Del Method BiPAP 10/10/23 08:00 O2 Flow Rate 3 10/10/23 00:00 FiO2 45 10/05/23 03:24 Oxygen Flow Rate 5 09/29/23 12:47 BMI result Body Mass Index 53.7 Const: Other: Constitutional : Awake, interactive, morbid obese, in mild resp distress Neck : Normal inspection, Supple Cardiovascular : RRR, no JVP, no lower extremity edema Respiratory : decreased bilateral air entry, no crackles, scattered bilateral expiratory wheezes , on O2 supplement Gastrointestinal: soft, lax, Normal bowel sounds, Non tender Skin : Warm, Dry Neurological : Alert & oriented x3, No focal deficit Objective Data Active Medications Acetaminophen (Acetaminophen 325 Mg Tablet) 650 mg PO Q6H PRN PRN Reason: Pain, Mild (Pain Scale 1-3) Last Admin: 10/09/23 21:11 Dose: 650 mg Documented By: GISELE Allopurinol (Allopurinol 300 Mg Tablet) 300 mg PO BID [facility] Last Admin: 10/01/23 07:58 Dose: 300 mg Documented By: PATI Amlodipine Besylate (Amlodipine Besylate 10 Mg Tablet) 10 mg PO DAILY [facility]; Protocol Last Admin: 10/10/23 09:20 Dose: 10 mg Documented By: ESTEFANY Aspirin (Aspirin 81 Mg Tab.Chew) 81 mg PO DAILY [facility] Last Admin: 10/10/23 09:20 Dose: 81 mg Documented By: ESTEFANY Atorvastatin Calcium (Atorvastatin Calcium 80 Mg Tablet) 80 mg PO DAILY [facility] Last Admin: 10/10/23 09:21 Dose: 80 mg Documented By: ESTEFANY Benzonatate (Benzonatate 100 Mg Capsule) 100 mg PO TID PRN PRN Reason: Cough Last Admin: 10/10/23 09:20 Dose: 100 mg Documented By: ESTEFANY Clotrimazole (Clotrimazole 1 % Cream 15 Gm Tube) 1 appl TOPICAL BID [facility]; Protocol Last Admin: 10/10/23 09:27 Dose: 1 appl Documented By: ESTEFANY Dextrose (Dextrose 50 % 25 Gm/50 Ml Syringe) 25 gm IVPUSH Q15M PRN; Protocol PRN Reason: per Hypoglycemia Standing Ord. Docusate Sodium (Docusate Sodium 100 Mg Capsule) 100 mg PO DAILY PRN PRN Reason: Constipation Last Admin: 10/08/23 18:34 Dose: 100 mg Documented By: YASMIN Doxycycline Monohydrate (Doxycycline Monohydrate 100 Mg Capsule) 100 mg PO Q12H [facility] Last Admin: 10/10/23 09:20 Dose: 100 mg Documented By: ESTEFANY Duloxetine HCl (Duloxetine Hcl 30 Mg Capsule.) 30 mg PO BID [facility] Last Admin: 10/10/23 09:20 Dose: 30 mg Documented By: ESTEFANY Enoxaparin Sodium (Enoxaparin Sodium 30 Mg/0.3 Ml Syringe) 30 mg SUBCUT Q24H [facility] Last Admin: 10/10/23 09:22 Dose: 30 mg Documented By: ESTEFANY Furosemide (Furosemide 40 Mg Tablet) 40 mg PO DAILY [facility]; Protocol Last Admin: 10/10/23 09:21 Dose: 40 mg Documented By: ESTEFANY Glucose (Glucose Gel 15 Gm Gel..Gram.) 15 gm PO Q15M PRN; Protocol PRN Reason: per Hypoglycemia Standing Ord. Hydralazine HCl (Hydralazine Hcl 25 Mg Tablet) 25 mg PO TID [facility]; Protocol Last Admin: 10/10/23 09:21 Dose: 25 mg Documented By: ESTEFANY Insulin Human Lispro (Insulin Lispro 100 Unit/Ml 3 Ml Vial) 0 unit SUBCUT QIDACHS [facility]; Protocol Last Admin: 10/10/23 08:11 Dose: 4 unit Documented By: ESTEFANY Lisinopril (Lisinopril 40 Mg Tablet) 40 mg PO DAILY [facility]; Protocol Last Admin: 10/10/23 09:21 Dose: 40 mg Documented By: ESTEFANY Magnesium Oxide (Magnesium Oxide 400 Mg Tablet) 400 mg PO DAILY [facility] Last Admin: 10/10/23 09:20 Dose: 400 mg Documented By: ESTEFANY Melatonin (Melatonin 3 Mg Tablet) 6 mg PO BEDTIME PRN PRN Reason: Insomnia Last Admin: 10/09/23 21:11 Dose: 6 mg Documented By: GISELE Methylprednisolone Sodium Succinate (Methylprednisolone Sod Succ 125 Mg/2 Ml Vial) 40 mg IVPUSH Q12H [facility] Last Admin: 10/10/23 04:18 Dose: 40 mg Documented By: GISELE Nystatin (Nystatin Powder 15 Gm Bottle) 1 appl TOPICAL BID [facility]; Protocol Last Admin: 10/10/23 09:27 Dose: 1 appl Documented By: ESTEFANY Ondansetron HCl (Ondansetron Hcl 4 Mg/2 Ml Vial) 4 mg IVPUSH Q8H PRN PRN Reason: Nausea and Vomiting Sodium Chloride (0.9 % Sodium Chloride Flush 3 Ml Syringe) 3 ml IVFLUSH QSHIFT [facility] Last Admin: 10/10/23 09:21 Dose: 3 ml Documented By: ESTEFANY Labs 10/09/23 08:27 10/09/23 08:27 Labs: Laboratory Results - last 24 hr 10/09/23 10/09/23 10/09/23 11:05 15:48 20:36 POC Glucose 264 H 195 H 248 H 10/10/23 07:33 POC Glucose 223 H Assessment and Plan (1) Pneumonia: Status: Acute (2) Acute kidney injury superimposed on CKD: Status: Acute (3) Acute hypoxic respiratory failure: Status: Acute (4) Influenza: Status: Acute Plan 68M PMH ?HTN, HLD, CVA, [id number] diabetes type 2, pulmonary arterial hypertension, HFpEF, gout, and LALI on CPAP at night who presented to the ED for evaluation for weakness and syncopal episode at home. found to be hypoxic and flu positive Acute hypoxic respiratory failure in the setting of influenza infection Finished Tamiflu 5 days CXR showing bilateral infiltrates, may resemble viral pneumonia DuoNebs, Solu-Medrol, Continue Doxycycline for antiinflammatory effect Pulmonology input appreciated Titrate supplemental O2>92, wean as tolerated CPAP at bedtime acute on chronic hfpef improved with iv lasix, changed back to po maitnenance, monitor FOREST on CKD3 resolved Elevated HTN lisinopril Amlodipine 10 mg daily Hydralazine 25 mg tid monitor for hypotension Syncope on presentation, resolved Orthostatic vs vasovagal normal Ortho vitals Elevated lactic acid Secondary to albuterol use and hypoxia, not sepsis No signs of bacterial infection Candidiasis in groin and intertriginous folds Treat with clotrimazole and nystatin cream b.i.d. LALI PAtient denies having CPAP at home use CPAP at night Non-insulin dependent diabetes type 2 Hold metformin Sliding scale insulin Diabetic diet Hx of CVA Continue aspirin, statin Hx of gout Continue allopurinol Obesity class 3 Encourage weight loss DNR/DNI DVT Prophylaxis: Lovenox reason for continued hospitalization: awaiting auth Quality Stroke Does the patient have a stroke diagnosis?: No VTE Prior VTE?: No VTE Risk Level:: Medical - moderate - high VTE Device Contraindication: Treatment Not Indicated VTE Drug Contraindication: N/A - Med Ordered
[2023-10-11] VITALS (10 sets, daily range): BP systolic 105–138; BP diastolic 54–93; PULSE 52–105; RESP 18–20; TEMP 35.9–37; O2SAT 88–97
[2023-10-11] MEDS: Atorvastatin Calcium 80 MG TABLET PO (07:56)
[2023-10-11] MEDS: Aspirin 81 MG TAB.CHEW PO (07:56)
[2023-10-11] MEDS: Magnesium Oxide 400 MG TABLET PO (07:56)
[2023-10-11] MEDS: 0.9 % Sodium Chloride Flush 3 ML SYRINGE IVFLUSH ×3 (07:57→20:59)
--- NOTE | 2023-10-11 10:25 | HO.PM.IMPN ---
Subjective Subjective Date of Service: 10/11/23 Interval History: improving Physical Exam Vital Signs: Vital Signs: Last Vital Signs Temp 96.7 F L 10/11/23 07:32 Pulse 64 10/11/23 07:32 Resp 20 10/11/23 07:32 BP 133/69 10/11/23 07:32 Pulse Ox 93 10/11/23 09:48 O2 Del Method [place] Nasal C annula 10/11/23 09:48 O2 Flow Rate 93 10/11/23 09:48 FiO2 45 10/11/23 00:00 Oxygen Flow Rate 5 09/29/23 12:47 BMI result Body Mass Index 53.7 Const: Other: Constitutional : Awake, interactive, morbid obese, in mild resp distress Neck : Normal inspection, Supple Cardiovascular : RRR, no JVP, no lower extremity edema Respiratory : decreased bilateral air entry, no crackles, scattered bilateral expiratory wheezes , on O2 supplement Gastrointestinal: soft, lax, Normal bowel sounds, Non tender Skin : Warm, Dry Neurological : Alert & oriented x3, No focal deficit Objective Data Active Medications Acetaminophen (Acetaminophen 325 Mg Tablet) 650 mg PO Q6H PRN PRN Reason: Pain, Mild (Pain Scale 1-3) Last Admin: 10/09/23 21:11 Dose: 650 mg Documented By: GISELE Allopurinol (Allopurinol 300 Mg Tablet) 300 mg PO BID [facility] Last Admin: 10/01/23 07:58 Dose: 300 mg Documented By: PATI Amlodipine Besylate (Amlodipine Besylate 10 Mg Tablet) 10 mg PO DAILY [facility]; Protocol Last Admin: 10/11/23 07:56 Dose: 10 mg Documented By: ELIZABETH Aspirin (Aspirin 81 Mg Tab.Chew) 81 mg PO DAILY [facility] Last Admin: 10/11/23 07:56 Dose: 81 mg Documented By: ELIZABETH Atorvastatin Calcium (Atorvastatin Calcium 80 Mg Tablet) 80 mg PO DAILY [facility] Last Admin: 10/11/23 07:56 Dose: 80 mg Documented By: ELIZABETH Benzonatate (Benzonatate 100 Mg Capsule) 100 mg PO TID PRN PRN Reason: Cough Last Admin: 10/10/23 09:20 Dose: 100 mg Documented By: ESTEFANY Clotrimazole (Clotrimazole 1 % Cream 15 Gm Tube) 1 appl TOPICAL BID [facility]; Protocol Last Admin: 10/11/23 07:58 Dose: 1 appl Documented By: ELIZABETH Dextrose (Dextrose 50 % 25 Gm/50 Ml Syringe) 25 gm IVPUSH Q15M PRN; Protocol PRN Reason: per Hypoglycemia Standing Ord. Docusate Sodium (Docusate Sodium 100 Mg Capsule) 100 mg PO DAILY PRN PRN Reason: Constipation Last Admin: 10/08/23 18:34 Dose: 100 mg Documented By: YASMIN Doxycycline Monohydrate (Doxycycline Monohydrate 100 Mg Capsule) 100 mg PO Q12H [facility] Last Admin: 10/10/23 21:20 Dose: 100 mg Documented By: AVRIL Duloxetine HCl (Duloxetine Hcl 30 Mg Capsule.Dr) 30 mg PO BID [facility] Last Admin: 10/11/23 07:56 Dose: 30 mg Documented By: ELIZABETH Enoxaparin Sodium (Enoxaparin Sodium 30 Mg/0.3 Ml Syringe) 30 mg SUBCUT Q24H [facility] Last Admin: 10/10/23 09:22 Dose: 30 mg Documented By: ESTEFANY Furosemide (Furosemide 40 Mg Tablet) 40 mg PO DAILY [facility]; Protocol Last Admin: 10/11/23 07:58 Dose: 40 mg Documented By: ELIZABETH Glucose (Glucose Gel 15 Gm Gel..Gram.) 15 gm PO Q15M PRN; Protocol PRN Reason: per Hypoglycemia Standing Ord. Hydralazine HCl (Hydralazine Hcl 25 Mg Tablet) 25 mg PO TID [facility]; Protocol Last Admin: 10/11/23 07:56 Dose: 25 mg Documented By: ELIZABETH Insulin Human Lispro (Insulin Lispro 100 Unit/Ml 3 Ml Vial) 0 unit SUBCUT QIDACHS [facility]; Protocol Last Admin: 10/11/23 07:57 Dose: 1 unit Documented By: ELIZABETH Lisinopril (Lisinopril 40 Mg Tablet) 40 mg PO DAILY [facility]; Protocol Last Admin: 10/11/23 07:56 Dose: 40 mg Documented By: ELIZABETH Magnesium Oxide (Magnesium Oxide 400 Mg Tablet) 400 mg PO DAILY [facility] Last Admin: 10/11/23 07:56 Dose: 400 mg Documented By: ELIZABETH Melatonin (Melatonin 3 Mg Tablet) 6 mg PO BEDTIME PRN PRN Reason: Insomnia Last Admin: 10/10/23 23:24 Dose: 6 mg Documented By: AVRIL Methylprednisolone Sodium Succinate (Methylprednisolone Sod Succ 125 Mg/2 Ml Vial) 40 mg IVPUSH Q12H [facility] Last Admin: 10/11/23 03:15 Dose: 40 mg Documented By: AVRIL Nystatin (Nystatin Powder 15 Gm Bottle) 1 appl TOPICAL BID [facility]; Protocol Last Admin: 10/11/23 07:59 Dose: 1 appl Documented By: ELIZABETH Ondansetron HCl (Ondansetron Hcl 4 Mg/2 Ml Vial) 4 mg IVPUSH Q8H PRN PRN Reason: Nausea and Vomiting Sodium Chloride (0.9 % Sodium Chloride Flush 3 Ml Syringe) 3 ml IVFLUSH QSHIFT [facility] Last Admin: 10/11/23 07:57 Dose: 3 ml Documented By: ELIZABETH Labs 10/09/23 08:27 10/09/23 08:27 Labs: Laboratory Results - last 24 hr 10/10/23 10/10/23 10/10/23 11:32 15:36 20:04 POC Glucose 234 H 218 H 231 H 10/11/23 07:43 POC Glucose 190 H Assessment and Plan (1) Pneumonia: Status: Acute (2) Acute kidney injury superimposed on CKD: Status: Acute (3) Acute hypoxic respiratory failure: Status: Acute (4) Influenza: Status: Acute Plan 68M PMH ?HTN, HLD, CVA, [id number] diabetes type 2, pulmonary arterial hypertension, HFpEF, gout, and LALI on CPAP at night who presented to the ED for evaluation for weakness and syncopal episode at home. found to be hypoxic and flu positive Acute hypoxic respiratory failure in the setting of influenza infection Finished Tamiflu 5 days CXR showing bilateral infiltrates, may resemble viral pneumonia DuoNebs, Solu-Medrol, Continue Doxycycline for antiinflammatory effect Pulmonology input appreciated Titrate supplemental O2>92, wean as tolerated CPAP at bedtime acute on chronic hfpef improved with iv lasix, changed back to po maintenance, monitor FOREST on CKD3 resolved Elevated HTN lisinopril Amlodipine 10 mg daily Hydralazine 25 mg tid monitor for hypotension Syncope on presentation, resolved Orthostatic vs vasovagal normal Ortho vitals Elevated lactic acid Secondary to albuterol use and hypoxia, not sepsis No signs of bacterial infection Candidiasis in groin and intertriginous folds Treat with clotrimazole and nystatin cream b.i.d. LALI PAtient denies having CPAP at home use CPAP at night Non-insulin dependent diabetes type 2 Hold metformin Sliding scale insulin Diabetic diet Hx of CVA Continue aspirin, statin Hx of gout Continue allopurinol Obesity class 3 Encourage weight loss DNR/DNI DVT Prophylaxis: Lovenox reason for continued hospitalization: awaiting auth, rehab bed Quality Stroke Does the patient have a stroke diagnosis?: No VTE Prior VTE?: No VTE Risk Level:: Medical - moderate - high VTE Device Contraindication: Treatment Not Indicated VTE Drug Contraindication: N/A - Med Ordered
[2023-10-11] MEDS: Enoxaparin Sodium 30 MG/0.3 ML SYRINGE SUBCUT (10:33)
--- NOTE | 2023-10-11 10:37 | MHC.CM.PN ---
EMR REVIEWED, PER HOSPITALIST PT CAN BE DISCHARGED TO [facility], SNF HAS NOT GONE FOR AUTH THE LAST PT NOTE SHOWED 6L W/ACTIVITY AND PER REPIRATORY PT HAS BEEN ON 6L W/CPAP/BIPAP AT [facility], PER RESPIRATORY PT SHOULD BE ABLE TO DC ON 5L AT NOC AND PT WILL SEE PT AGAIN FOR UPATED O2 REQ W/ACTIVITY, CM WILL CONT TO FOLLOW.
--- NOTE | 2023-10-11 11:55 | P.DS_ITS ---
DS: Providers Provider Date of Service: 10/12/23 Date of admission: 09/29/23 20:22 Primary care physician: FIDENCIO Alejandro Consults: 09/30/23 09:31 Consult to Wound Care Routine Reason for consultation: Fungal rash groin, abd 10/03/23 11:21 Consult to Pulmonology Routine Consulting Provider: [facility] Reason for consultation: Hypoxic failure DS: Diagnosis Discharge Diagnosis (1) Pneumonia: Status: Acute (2) Acute kidney injury superimposed on CKD: Status: Acute (3) Acute hypoxic respiratory failure: Status: Acute (4) Influenza: Status: Acute DS: Summary Hospital Course Hospital Course: from initial hpi: 68-year-old male with a PMH significant for?HTN, HLD, CVA in 2020, [id number] diabetes type 2, pulmonary arterial hypertension, HFpEF, gout, and LALI on CPAP at night who presents to the ED for evaluation for weakness and syncopal episode at home. Patient states earlier this afternoon he had a to go to the bathroom, felt lightheaded and dizzy, and then ?blacked out? and fell to the floor. Syncopal episode lasted for greater than 5 minutes. Patient awoke but felt weak and lactose strength to pull himself up. called EMS. Patient states that he had 2-3 other presyncopal episodes earlier in the day, and wanted to presyncopal episodes yesterday. Has felt generally unwell for the past 4 days with subjective fever and chills, and persistent cough productive of whitish sputum. Reports he has not been able to sleep at night for the past 2 days because of coughing. Denies chest pain, pressure, palpitations. No shortness of breath. Denies nausea or vomiting or abdominal pain. Patient also notes he has had a red rash in his groin for the past week or so. In the ED pt was afebrile, but tachypneic up with 24, hypertensive up to 166/82, and hypoxic satting at 87% on RA which improved to 92% on 5 L NC. Labs were significant for patient testing positive for influenza type a, lactic acid 2.6 with repeat 2.7, otherwise grossly unremarkable. CXR limited due to body habitus, but negative for definite consolidations or failure. EKG demonstrated sinus rhythm with first-degree AV block and occasional PVCs. Pt was treated with Solu-Medrol, Tamiflu, and DuoNebs. Pt will be admitted to the hospital for treatment and further evaluation of acute hypoxic respiratory failure in the setting of influenza infection. hospital course: Patient was admitted for acute hypoxic respiratory failure secondary to influenza A. Was treated with 5 days of Tamiflu, IV steroids, doxycycline. Patient was able to be weaned down to 2-3 L O2 and use BIPAP 12/5 with 3L at bedtime. Course also complicated by acute on chronic diastolic CHF, it improved with IV Lasix and he was transitioned back to oral maintenance. Course complicated by acute kidney injury on CKD 3 which resolved. For hypertension was continued on lisinopril and added amlodipine and hydralazine. Patient likely has obstructive sleep apnea and she get a sleep study as outpatient, he started using CPAP at night in the hospital. For diabetes was continued on insulin. For history of CVA was continued on aspirin statin. For history of gout was continued on allopurinol. For obesity weight loss is encouraged. Patient was seen by physical therapy recommended short-term rehab at longterm facility. Time Attestation Discharge coordination time: Greater than 30 minutes Quality: Safe Use of Opioids Does Pt have an Active Cancer Diagnosis on the Problem List?: No Quality: Stroke Does the patient have a stroke diagnosis?: No Physical Exam Vital Signs: Vital Signs: Last Vital Signs Temp 96.7 F L 10/11/23 11:47 Pulse 72 10/11/23 11:47 Resp 20 10/11/23 11:47 BP 107/54 L 10/11/23 11:47 Pulse Ox 93 10/11/23 11:47 O2 Del Method Nasal Cannula 10/11/23 11:47 O2 Flow Rate 3 10/11/23 11:47 FiO2 45 10/11/23 00:00 Oxygen Flow Rate 5 09/29/23 12:47 BMI result Body Mass Index 53.7 Const: Other: General: AO X 3, no acute distress Resp: dimisnished bilateral, no accessory muscles used CVS: S1,S2,RRR GI: soft, non tender, non distended Neuro: motor grossly intact, alert Psych: appropriate affect, appropriate insight DS: Data Data Completed and Pending Labs on day of discharge: Laboratory Results - last 24 hr 10/10/23 10/10/23 10/10/23 11:32 15:36 20:04 POC Glucose 234 H 218 H 231 H 10/11/23 10/11/23 07:43 11:45 POC Glucose 190 H 205 H Discharge Plan Discharge Anticipated Discharge Date/Time: 10/11/23 11:53 Patient Disposition: Xfer SNF Discharge Diagnosis: flu Referrals: Hernandez Jameson, HABILITATION TRAINING SPECIALIST-BC [Primary Care Provider] - 1 Week Discharge Medications: New hydralazine 25 mg Tablet 25 mg PO TID Qty: 0 0RF Protocol: Hold for SBP< HOLD for SBP < : 90 amlodipine 10 mg Tablet 10 mg PO DAILY Qty: 0 0RF Protocol: Hold for SBP< HOLD for SBP < : 90 prednisone 20 mg tablet 40 mg PO DAILY Qty: 10 0RF Continued allopurinol 300 mg tablet 300 mg PO BID 90 Days Qty: 180 0RF magnesium oxide 400 mg (241.3 mg magnesium) tablet 400 mg PO DAILY Qty: 90 0RF duloxetine 30 mg capsule,delayed release(DR/EC) 30 mg PO BID 30 Days Qty: 60 3RF lisinopril 40 mg tablet 40 mg PO DAILY Qty: 90 0RF metformin 500 mg tablet 500 mg PO BID Qty: 180 1RF aspirin 81 mg Tablet,Chewable 81 mg PO DAILY atorvastatin 80 mg tablet 80 mg PO DAILY Qty: 90 3RF furosemide 40 mg tablet 40 mg PO DAILY Qty: 90 1RF Discharge Orders: Discharge Order (Routine); Ordered 10/12/23 Ordered By: Rian Waller Diet: Advance to usual diet Activity on Discharge: As tolerated Stand Alone Forms: Patient Portal Discharge page Care Plan Goals: recovery Health Concerns: flu, hypoxia Plan of Treatment: 5 more days prednisone, rehab, wean o2 as tolerated, follow up official sleep study, for now bipap 12 with 3L o2 overnight Assessment: see above
[2023-10-11] MEDS: Acetaminophen 325 MG TABLET 650 MG PO (15:18)
[2023-10-11 16:23] LABS: Glucose, Whole Blood 163 mg/dL (60-115)
[2023-10-11] MEDS: Insulin Lispro 100 UNIT/ML 3 ML VIAL SUBCUT ×2 (16:35→20:53)
[2023-10-11 20:33] LABS: Glucose, Whole Blood 209 mg/dL (60-115)
[2023-10-11] MEDS: DULoxetine HCl 30 MG CAPSULE.DR PO (20:53)
[2023-10-11] MEDS: hydrALAZINE HCl 25 MG TABLET PO (20:53)
[2023-10-11] MEDS: Doxycycline Monohydrate 100 MG CAPSULE PO (20:53)
[2023-10-11] MEDS: Melatonin 3 MG TABLET 6 MG PO (20:55)
[2023-10-11] MEDS: Clotrimazole 1 % Cream 15 GM TUBE 1 APPL TOPICAL (20:57)
[2023-10-11] MEDS: Nystatin Powder 15 GM BOTTLE 1 APPL TOPICAL (20:57)
--- NOTE | 2023-10-11 22:01 | PC.RT ---
Pt started on overnight sleep study at 3lpm via NC w/ O2 saturation 94% RN aware
[2023-10-12] MEDS: methylPREDNISolone Sod Succ 125 MG/2 ML VIAL 40 MG IVPUSH (03:29)
[2023-10-12 03:46] VITALS: BP 136/65; PULSE 54; RESP 20; TEMP 36.3; O2SAT 94
[2023-10-12 07:05] VITALS: BP 148/65; PULSE 82; RESP 20; TEMP 36.5; O2SAT 95
[2023-10-12 07:21] LABS: Glucose, Whole Blood 190 mg/dL (60-115)
[2023-10-12] MEDS: Aspirin 81 MG TAB.CHEW PO (07:38)
[2023-10-12] MEDS: amLODIPine Besylate 10 MG TABLET PO (07:38)
[2023-10-12] MEDS: DULoxetine HCl 30 MG CAPSULE.DR PO (07:39)
[2023-10-12] MEDS: hydrALAZINE HCl 25 MG TABLET PO (07:39)
[2023-10-12] MEDS: lisinopriL 40 MG TABLET PO (07:39)
[2023-10-12] MEDS: Insulin Lispro 100 UNIT/ML 3 ML VIAL SUBCUT ×2 (07:39→11:40)
[2023-10-12] MEDS: Magnesium Oxide 400 MG TABLET PO (07:39)
[2023-10-12] MEDS: Atorvastatin Calcium 80 MG TABLET PO (07:39)
[2023-10-12] MEDS: Furosemide 40 MG TABLET PO (07:39)
[2023-10-12] MEDS: Clotrimazole 1 % Cream 15 GM TUBE 1 APPL TOPICAL (07:40)
[2023-10-12] MEDS: Nystatin Powder 15 GM BOTTLE 1 APPL TOPICAL (07:40)
[2023-10-12] MEDS: 0.9 % Sodium Chloride Flush 3 ML SYRINGE IVFLUSH (07:48)
[2023-10-12 08:55] VITALS: BP 148/65; PULSE 82; O2SAT 95
[2023-10-12] MEDS: Enoxaparin Sodium 30 MG/0.3 ML SYRINGE SUBCUT (09:47)
[2023-10-12] MEDS: Doxycycline Monohydrate 100 MG CAPSULE PO (09:47)
--- NOTE | 2023-10-12 10:46 | MHC.CM.PN ---
PT MEDICALLY CLEARED FOR DC TO STR AT [facility] FOR TRANSPORT AT 2:30PM, IMM DELIVERED TO BEDSIDE.
[2023-10-12 11:01] VITALS: BP 107/58; PULSE 85; RESP 20; TEMP 36.3; O2SAT 94
[2023-10-12 11:17] LABS: Glucose, Whole Blood 201 mg/dL (60-115)
== END 2023-10-12 15:05 | disposition skilled nursing facility (03) | DRG 193 ==
LOC: HO.ED 14:16 → HO.EDOVER 20:44 → HO.S3 09-30 07:40 → HO.IMC 10-03 10:26
PROVIDERS: Emergency Medicine; Internal Medicine; Student in an Organized Health Care Education/Training Program; Admitting Provider Student in an Organized Health Care Education/Training Program; Emergency Provider Emergency Medicine Emergency Medical Services; PCP Nurse Practitioner Family; Visit Provider Internal Medicine
DX: J10.00 Influenza due to other identified influenza virus with unspecified type of pneumonia (principal); I50.33 Acute on chronic diastolic (congestive) heart failure; J96.21 Acute and chronic respiratory failure with hypoxia; I13.0 Hypertensive heart and chronic kidney disease with heart failure and stage 1 through stage 4 chronic kidney disease, or unspecified chronic kidney disease; Z68.43 Body mass index [BMI] 50.0-59.9, adult; E87.21 Acute metabolic acidosis; N17.9 Acute kidney failure, unspecified; I95.1 Orthostatic hypotension; I44.0 Atrioventricular block, first degree; M10.9 Gout, unspecified; Z66 Do not resuscitate; B37.2 Candidiasis of skin and nail; G47.33 Obstructive sleep apnea (adult) (pediatric); E66.01 Morbid (severe) obesity due to excess calories; N18.30 Chronic kidney disease, stage 3 unspecified; E11.22 Type 2 diabetes mellitus with diabetic chronic kidney disease; Z71.3 Dietary counseling and surveillance; Z86.73 Personal history of transient ischemic attack (TIA), and cerebral infarction without residual deficits; Z79.82 Long term (current) use of aspirin; Z79.899 Other long term (current) drug therapy
CPT/HCPCS: 0241U; 36415; 36600; 71045; 80048; 80076; 82803; 82947; 83605; 83735; 83880; 85025; 85027; 85610; 85730; 87040; 93005; 94640; 94660; 94799; 97116; 97162; 97530; 99285; J0456; J1650; J1940; J2920; J2930; J3475

== ENCOUNTER → 2023-09-29 12:45 | Outpatient (BNV) | payer OTHER, SELFPAY | PROVIDERS: Emergency Provider Emergency Medicine Emergency Medical Services; PCP Nurse Practitioner Family; Visit Provider Internal Medicine | DX: I44.0 Atrioventricular block, first degree (principal); I49.3 Ventricular premature depolarization | CPT/HCPCS: 93010 ==

== ENCOUNTER → 2023-09-29 20:22 | Outpatient (BNV) | payer OTHER, SELFPAY | PROVIDERS: Admitting Provider Student in an Organized Health Care Education/Training Program; Emergency Provider Emergency Medicine Emergency Medical Services; PCP Nurse Practitioner Family; Visit Provider Student in an Organized Health Care Education/Training Program | DX: J18.9 Pneumonia, unspecified organism (principal); N17.9 Acute kidney failure, unspecified; N18.30 Chronic kidney disease, stage 3 unspecified; J96.01 Acute respiratory failure with hypoxia; J11.1 Influenza due to unidentified influenza virus with other respiratory manifestations | CPT/HCPCS: 99223; 99232; 99233; 99239 ==

== ENCOUNTER → 2023-09-29 20:22 | Outpatient (BNV) | payer OTHER, SELFPAY | PROVIDERS: Admitting Provider Student in an Organized Health Care Education/Training Program; Emergency Provider Emergency Medicine Emergency Medical Services; PCP Nurse Practitioner Family; Visit Provider Hospitalist | DX: J96.01 Acute respiratory failure with hypoxia (principal); J11.1 Influenza due to unidentified influenza virus with other respiratory manifestations; G47.33 Obstructive sleep apnea (adult) (pediatric); J18.9 Pneumonia, unspecified organism | CPT/HCPCS: 99223 ==

== ENCOUNTER 2023-10-12 17:37 | Emergency (ER) | payer OTHER, SELFPAY ==
[2023-10-12 17:55] VITALS: BP 92/54; PULSE 77; RESP 22; TEMP 36.6; O2SAT 94
[2023-10-12 17:58] VITALS: BP 102/70; PULSE 92; O2SAT 94
[2023-10-12 17:59] VITALS: BP 95/54; PULSE 77; RESP 18; TEMP 36.6; O2SAT 94; BMI 54.2
--- NOTE | 2023-10-12 18:29 | PC.NURSE ---
patient a&ox3, pt states he slipped and fell, denies head strike, credit support counselor intact sinus 70s, pt noted to be hypotensive, pt states he wears O2 at night only at home 2.5 liters, pt currently denying pain/discomfort, call arias within reach, will continue to monitor
--- NOTE | 2023-10-12 18:30 | PC.NURSE ---
repeat labs performed
--- NOTE | 2023-10-12 18:51 | ED.GENADULT ---
HPI - General Adult General Chief complaint: Fall Stated complaint: FALL Time Seen by Provider: 10/12/23 18:03 Source: patient and EMS Mode of arrival: EMS Limitations: no limitations History of Present Illness HPI narrative: Patient comes to the emergency room by ambulance. Earlier today, patient was discharged from this hospital and sent to short-term rehab. When patient got to the short-term rehab, patient said that he did not like it and asked his to pick him up and to bring him home. When patient was about to get into his 's car, patient slid. Patient states that he was weak and was unable to get up. Patient states that he did not land hard on the floor. Patient states there was ice on the floor and he slid down the car and landed softly on the ground. Patient denies any pain in the buttocks where he landed, no knee pain, did not hit his head, did not lose consciousness. Patient states that he did not want to come home but he was made to come. Patient states that he refuses to go to short-term rehab, would like to go home. Related Data Home Medications Medication Instructions Recorded Confirmed aspirin 81 mg chewable tablet 81 mg PO DAILY 09/29/23 09/29/23 Previous Rx's Medication Instructions Recorded atorvastatin 80 mg tablet 80 mg PO DAILY #90 tabs 06/23/23 furosemide 40 mg tablet 40 mg PO DAILY #90 tabs 06/23/23 allopurinol 300 mg tablet 300 mg PO BID 90 days #180 tabs 06/27/23 duloxetine 30 mg capsule,delayed 30 mg PO BID 30 days #60 caps 07/20/23 release magnesium oxide 400 mg (241.3 mg 400 mg PO DAILY #90 tabs 07/20/23 magnesium) tablet lisinopril 40 mg tablet 40 mg PO DAILY #90 tabs 07/24/23 metformin 500 mg tablet 500 mg PO BID for diabetes 08/08/23 mellitus #180 tabs amlodipine 10 mg tablet 10 mg PO DAILY #0 tabs 10/11/23 hydralazine 25 mg tablet 25 mg PO TID #0 tabs 10/11/23 prednisone 20 mg tablet 40 mg (2 x 20 mg) PO DAILY #10 tabs 10/11/23 Allergies Allergy/AdvReac Type Severity Reaction Status Date / Time No Known Allergies Allergy Verified 06/23/23 09:05 Review of Systems Review of Systems: Constitutional : No Weight loss, No Fever, No Chills, No Night Sweats, No Fatigue, No Malaise, weakness ENT/Mouth : No Hearing loss, No Ear Pain, No Nasal Congestion, No Sinus Pain, No Hoarseness, No sore throat, No Rhinorrhea, No Swallowing Difficulty Eyes: No Eye Pain, No Swelling, No Redness, No Foreign Body, No Discharge, No Vision Changes Cardiovascular : No Chest Pain, No SOB, No Dyspnea on Exertion, No Orthopnea, No Edema, No Palpitations Respiratory : No Cough, No Sputum, No Wheezing, No Smoke Exposure, No Dyspnea Gastrointestinal : No Nausea, No Vomiting, No Diarrhea, No Constipation, No abdominal Pain, No Hematochezia, No Melena Genitourinary : no irregular bleeding, No Dysuria, No Urinary Frequency, No Hematuria, No Urinary Incontinence, No Urgency, No Flank Pain, No Urinary Flow Changes, No Hesitancy Musculoskeletal : No joint pain, No Myalgias, No Joint Swelling Skin : No Skin Lesions, No rash Neuro : No Weakness, No Numbness, No Paresthesias, No Loss of Consciousness, No Dizziness, No Headache Psych : No Anxiety/Panic, No Depression, No SI/HI/AH/VH, No Social Issues, Heme/Lymph: No Bruising, No Bleeding,No Lymphadenopathy Endocrine : No Polyuria, No Polydipsia, No Temperature Intolerance PMFSH Past Medical History Onset Date is defined in the Problem List Problems that require an onset date and time if occurred within 24 hrs of arrival to the ED Aortic Dissection and Rupture; Neurologic impairment; Cardiopulmonary Arrest; Endotracheal Intubation; Insertion or Replacement of Mechanical Circulatory Assist Device Medical History Screening PSA (prostate specific antigen) Elevated serum creatinine Morbid obesity Right heart failure Leg pain FOREST (acute kidney injury) Leukocytosis LALI (obstructive sleep apnea) Hyperlipidemia HTN (hypertension) Diastolic heart failure Newly diagnosed diabetes Acute gout of left foot Chronic fatigue Pulmonary arterial hypertension Cerebrovascular accident (CVA) Surgical History Hx of shoulder surgery No pertinent past surgical history Family History Family History Father Blood clot in vein Mother Cancer Social History Social History Household Members: Family Housing: Apartment Do you presently have visiting nurse or other home services: No Patient Tobacco Use Status: Never used Tobacco Years Smoked: nonsmoker Smoked in Last 30 Days: No Use of substances other than those prescribed or required for medical reasons: No Advance Directives: Yes Advance Directives on File: Yes Advance Directives Date on File: 12/03/20 service: No Current occupational status: unemployed Physical Exam ED Vital Signs: Vital Signs - 24 hr 10/12/23 17:55 10/12/23 17:59 Temperature 97.8 F 97.8 F Pulse Rate 77 77 Respiratory Rate 22 H 18 Blood Pressure 92/54 L 95/54 L Pulse Oximetry 94 94 Oxygen Delivery Method Nasal Cannula Nasal Cannula Oxygen Flow Rate 4 BMI result Body Mass Index 54.2 Const Other: Appearance: Alert. Oriented X3. No acute distress. Seems weak Eyes: Pupils equal, round and reactive to light. ENT: Pharynx normal. Neck: Normal inspection. Neck supple. No lymph nodes noted. No crepitus CVS: Normal heart rate and rhythm. Pulses normal. Normal S1 and S2 Respiratory: No respiratory distress. Breath sounds normal. No Wheezing. No rales , on 4 L oxygen, chronic Abdomen: Soft and nontender. No rigidity. No distention. Skin: Skin warm and dry. Normal skin color. Normal skin turgor. No ecchymosis Extremities: No lower extremity edema. No Lacerations. No Rash Neuro: Oriented X 3. No motor deficit. No sensory deficit. Moving all extremities. No slurred speech. CN 2 through 12 grossly intact Psych: calm, cooperative, normal affect Medical Decision Making Medical Decision Making MDM Narrative: -patient upset because he was forced to come to the hospital. -patient states that he feels well other than the chronic weakness that he has had. No pain. No new issues. -patient requesting to be discharged home. -I discussed the patient with case management. Patient will be discharged home. -I discussed patient with Lian from case management: Referrals for home PT will be done, patient agreeable with this plan. Differential Diagnosis Differential Diagnoses: The differential diagnosis associated with the presentation includes (Weakness, deconditioning) Discharge Plan Discharge Clinical Impression: Fall, Generalized weakness Patient Disposition: Home, Self-Care Instructions: Fall Prevention (ED), Weakness (ED) Additional Instructions: Please follow-up with your primary care physician tomorrow. If you have any worsening or new symptoms, please return to the emergency room or call 911 Prescriptions: No Action allopurinol 300 mg tablet 300 mg PO BID 90 Days Qty: 180 0RF magnesium oxide 400 mg (241.3 mg magnesium) tablet 400 mg PO DAILY Qty: 90 0RF duloxetine 30 mg capsule,delayed release(DR/EC) 30 mg PO BID 30 Days Qty: 60 3RF lisinopril 40 mg tablet 40 mg PO DAILY Qty: 90 0RF metformin 500 mg tablet 500 mg PO BID Qty: 180 1RF aspirin 81 mg Tablet,Chewable 81 mg PO DAILY hydralazine 25 mg Tablet 25 mg PO TID Qty: 0 0RF Protocol: Hold for SBP< HOLD for SBP < : 90 amlodipine 10 mg Tablet 10 mg PO DAILY Qty: 0 0RF Protocol: Hold for SBP< HOLD for SBP < : 90 prednisone 20 mg tablet 40 mg PO DAILY Qty: 10 0RF atorvastatin 80 mg tablet 80 mg PO DAILY Qty: 90 3RF furosemide 40 mg tablet 40 mg PO DAILY Qty: 90 1RF
--- NOTE | 2023-10-12 18:52 | PC.NURSE ---
patient a&ox3, c/o chest pressure 6/10, labs drawn by tech, vss, lungs diminished/clear, will continue to monitor.
--- NOTE | 2023-10-12 19:40 | PC.NURSE ---
this rn assumed care of pt. pt on 2.5L nasal cannula at this time, 95%. pt reporting he would like to go home and does not want short term rehab. provider aware, CM aware.
--- NOTE | 2023-10-12 20:24 | MHC.CM.ED ---
CM met with patient at the request of Dr. Guevara. Pt is very frustrated. States he was discharged today to [facility]. Immediately had a bad feeling about facility and refused to stay. came to pick him up in her truck. Pt slipped on ice and was unable to get up. Transported to [facility]. Pt is medically cleared. Pt tells CM he has been to other rehabs, and was fine with them, but the place we sent him to was bad. States he just wants to go home. Refuses any further referrals to [facility]. Is agreeable to CM contacting [facility] for services and PT. Dr. Guevara aware. Pt feels safe to discharge. Uses a walker and cane. Oxygen dependent. CPAP at night. Uses [employer] for his oxygen supplies. States has supplies in his home. Will call PCP tomorrow to arrange f/u appointment. PCP is Hernandez Jameson. BLS booked with Adri for 9pm-first available. F2F completed and signed by Dr. Guevara. [facility] referrals broadcasted locally. Will follow up tomorrow. Pt has no requests for home [facility]/PT. RN and community health advocate aware of transport home. MED NEC and face sheet with community health advocate. CM will monitor for discharge.
== END 2023-10-13 00:11 | disposition home or self-care (01) ==
PROVIDERS: Emergency Provider Emergency Medicine; PCP Nurse Practitioner Family
DX: S39.92XA Unspecified injury of lower back, initial encounter (principal); R53.1 Weakness; W00.0XXA Fall on same level due to ice and snow, initial encounter; Y93.9 Activity, unspecified; Y92.9 Unspecified place or not applicable; Y99.9 Unspecified external cause status
CPT/HCPCS: 99284

== ENCOUNTER 2023-11-04 14:09 | Outpatient (AMB) | payer OTHER, SELFPAY ==
[2023-11-04 14:19] VITALS: BP 160/88; PULSE 87; O2SAT 90; BMI 52.6
--- NOTE | 2023-11-04 14:19 | A.OFFPC_ITS ---
Vital Signs 11/04/23 14:19 11/04/23 15:04 Height 5 ft 7 in Weight 336 lb 2 oz BMI 52.6 BP 160/88 H Blood Pressure Location Rt brachial Position Sitting Pulse 87 Pulse Source Pulse Oximeter Pulse Oximetry (%) 90 L 93 Oxygen Delivery Method Room Air Intake Visit Reasons: HDF111/30-10/11/23/fmla for Intake Note: Pt is here for HDF from [facility] [place] and need FMLA filled out Allergies No Known Allergies Allergy (Verified 11/04/23 14:23) Tobacco use date assessed: 11/04/23 Fall risk assessment: 2 + Falls in past year Last assessed Fall Risk: 11/04/23 Dental Screening Dental Screen Date: 11/04/23 Did you have a dental visit in the last 12 months?: No Did you have a dental problem in the last 6 months where you did not have access to dental care?: No Was dental information given to patient?: No HPI F111/30-10/11/23/fmla for HPI Details Pt was seen in the ER on 09/29 c/o dizziness. Labs showed elevated lactic acid of 2.6, otherwise unremarkable. Pt tested positive for influenza A. EKG was unremarkable. Chest XR showed no acute process, however study was sub- optimal. Pt's O2 saturation was 87 on room air. He was placed on 5L of O2 and his saturation improved to 92. He was given solu-medrol, tamiflu, and duonebs. Pt's presentation was not consistent with sepsis. He was admitted for acute hypoxic respiratory failure secondary to influenza A. Pt was treated with 5 days of tamiflu, IV steroids, and doxycycline. Pt was weaned down to 2-3L of oxygen and placed on 3L bipap at night. Hospital course was complicated by acute on chronic diastolic CHF which improved with IV lasix. Course was also complicated by FOREST which resolved. Pt was continued on lisinopril from hypertension and started on amlodipine and hydralazine. It was recommended that pt have a sleep study outpatient due to possible sleep apnea. Pt reports doing mostly better today. Pt's needs FMLA paperwork filled out so she can assist with his care. Will fill out. Lung crackles noted on exam, will have pt take an extra 20mg of furosemide daily in the afternoon. Will order chest XR. Denies chest pain, excessive shortness of breath, and dizziness. [facility] Medical History Morbid obesity Screening PSA (prostate specific antigen) Elevated serum creatinine Right heart failure Leg pain FOREST (acute kidney injury) Leukocytosis LALI (obstructive sleep apnea) Hyperlipidemia HTN (hypertension) Diastolic heart failure Newly diagnosed diabetes Acute gout of left foot Chronic fatigue Pulmonary arterial hypertension Cerebrovascular accident (CVA) Surgical History Hx of shoulder surgery No pertinent past surgical history Family History Father Blood clot in vein Mother Cancer Social History Household Members: Family Housing: Apartment Do you presently have visiting nurse or other home services: No Patient Tobacco Use Status: Never used Tobacco Years Smoked: nonsmoker Advance Directives Date on File: 12/03/20 service: No Current occupational status: unemployed Questionnaire Thrive Questionnaire Date Thrive assessed: 09/30/23 AUDIT C Alcohol Use Questionnaire (AUDIT-C) 1. How often do you have a drink containing alcohol?: Never Total Score: 0 Review of Systems Const Reports as per HPI Physical exam (Primary Care) Vital Signs: Last Vital Signs Pulse 87 11/04/23 14:19 BP 160/88 H 11/04/23 14:19 Pulse Ox 93 11/04/23 15:04 Oxygen Delivery Method Room Air 11/04/23 14:19 BMI result Body Mass Index 52.6 Tobacco/Smoking Status: Tobacco use Status Tobacco use date assessed 11/04/23 11/04/23 14:29 Patient Tobacco Use Status Never used Tobacco 11/04/23 14:29 Thrive Assessment: Date of Thrive Assessment Date Thrive assessed 09/30/23 11/04/23 14:29 Const General: cooperative Nutritional Appearance: obese morbidly obese Orientation/consciousness: patient oriented x3 Limitations: wheelchair Resp Effort & Inspection: normal respiratory effort Auscultation: crackles bilateral (bases) at the base Cardio Rate: regular rate Rhythm: regular rhythm Heart sounds: S1 normal heart sound present, S2 normal heart sound present and Murmur heart sound present systolic Neuro General: patient oriented x3 Extrem Right lower extremity: edema Details: pitting and 1+ Left lower extremity: edema Details: pitting and 1+ Psych Appearance: grossly normal Mental Status: mental status grossly normal Speech and movement: Normal speech and movement present Affect: normal affect Attitude: cooperative Thought process: Normal thought process present Thought content: Normal thought content present Insight: Good insight present (Psych) Judgement: Good judgement present (Psych) Assessment and Plan Assessment & Plan (1) Right heart failure: Code(s): I50.810 - Right heart failure, unspecified Plan: Cardiology appointment scheduled, chest XR and labs ordered (2) Systolic murmur: Code(s): R01.1 - Cardiac murmur, unspecified Plan: Cardiology appointment scheduled, chest XR and labs ordered (3) Acute hypoxic respiratory failure: Code(s): J96.01 - Acute respiratory failure with hypoxia Plan: Cardiology appointment scheduled, chest XR and labs ordered (4) Morbid obesity: Code(s): E66.01 - Morbid (severe) obesity due to excess calories (5) HTN (hypertension): Code(s): I10 - Essential (primary) hypertension Plan: will have pt take his BP at home, drop off values in the near future Plan The patient agreed to the use of a medical dosimetrist for this encounter. Scribed for FIDENCIO Vega by Izabella Moore medical dosimetrist, on 11/04/2023 at 14:50 EST. Orders: Orders Comprehensive Met. Panel Today I50.810 - Right heart failure, unspecified, J96.01 - Acute respiratory failure with hypoxia, R01.1 - Cardiac murmur, unspecified TSH reflex Free T4 Today I50.810 - Right heart failure, unspecified, J96.01 - Acute respiratory failure with hypoxia, R01.1 - Cardiac murmur, unspecified UA CC w/rflx Micro + Cult Today I50.810 - Right heart failure, unspecified, J96.01 - Acute respiratory failure with hypoxia, R01.1 - Cardiac murmur, unspecified XR chest 2V Today I50.810 - Right heart failure, unspecified, J96.01 - Acute respiratory failure with hypoxia Complete Blood Count Auto Diff Today I50.810 - Right heart failure, unspecified, J96.01 - Acute respiratory failure with hypoxia, R01.1 - Cardiac murmur, unspecified Referrals Sleep Medicine Referral E66.01 - Morbid (severe) obesity due to excess calories Coding Level of Care Code Est Pt Level 4 (89821) Diagnoses Right heart failure I50.810 Systolic murmur R01.1 Acute hypoxic respiratory failure J96.01 Morbid obesity E66.01 HTN (hypertension) I10
[2023-11-04 15:04] VITALS: O2SAT 93
== END 2023-11-04 15:36 | disposition home or self-care (01) ==
PROVIDERS: PCP Nurse Practitioner Family; Visit Provider Nurse Practitioner Family
DX: I50.810 Right heart failure, unspecified (principal); J96.01 Acute respiratory failure with hypoxia; E66.01 Morbid (severe) obesity due to excess calories; Z68.43 Body mass index [BMI] 50.0-59.9, adult; R01.1 Cardiac murmur, unspecified; I10 Essential (primary) hypertension
CPT/HCPCS: 99214

== ENCOUNTER 2023-11-04 15:13 | Outpatient (REF) | payer OTHER, SELFPAY ==
--- NOTE | ~2023-11-04 | XR_ITS ---
EXAMINATION: XR CHEST CLINICAL INFORMATION: Acute respiratory failure with hypoxia COMPARISON: Chest 10/03/2023 TECHNIQUE: 2 views of the chest were obtained. FINDINGS: There is persistent elevated right hemidiaphragm with hypoexpanded lungs in right basal atelectasis. The left lung is mildly hyperexpanded with patchy airspace opacity left lung base retrocardiac area likely atelectasis. Cannot exclude infiltrate. Heart size enlarged. Pulmonary vascularity is within normal limits. Moderate degenerative changes left shoulder joint is noted... XR/XR chest 2V IMPRESSION: Persistent elevated right hemidiaphragm with right basilar atelectasis. Patchy airspace opacity left lung base likely atelectasis and/or infiltrate.
[2023-11-04 16:38] LABS: Hematocrit 36.4 % (42.0-52.0); Hemoglobin 11.3 g/dl (14.0-18.0); Mean Corpuscular Hemoglobin 28.3 pg (27.0-33.0); Mean Platelet Volume 9.7 fL (9.4-12.4); NRBC Pct Auto 0.3 /100WBC (0.0-0.2); Platelet Count 357 X10*3/uL (160-400); Red Cell Distribution Width 17.6 % (11.0-16.0); White Blood Count 7.1 X10*3/uL (4.8-10.8)
[2023-11-04 17:06] LABS: Band Neutrophils Percent 0 % (3-5); Eosinophils Absolute Manual 0.2 X10*3/uL (0.0-0.4); Eosinophils Percent Manual 3 % (0-4); Giant Platelet PRESENT; Lymphocytes Absolute Manual 1.7 X10*3/uL (1.2-4.9); Lymphocytes Percent Manual 24 % (20-40); Monocytes Absolute Manual 0.3 X10*3/uL (0.1-1.2); Monocytes Percent Manual 4 % (2-11); Neutrophils Absolute Manual 4.9 X10*3/uL (2.0-8.3); Neutrophils Percent Manual 69 % (45-73); Nucleated Red Blood Cells 1 /100WBC (0-0); Platelet Estimate NORMAL (NORMAL); Platelet Morphology Comment NOTED; RBC Morphology NOTED
[2023-11-04 17:07] LABS: Basophilic Stippling 2+ (3-5) /OIF; Polychromasia 1+ (0-2) /OIF
[2023-11-04 17:08] LABS: Hypochromasia 1+ (5-14) /OIF; Macrocytosis 1+ (5-14) /OIF
[2023-11-04 17:09] LABS: Toxic Vacuolation PRESENT
[2023-11-04 17:11] LABS: Toxic Granulation PRESENT
== END 2023-11-04 15:14 | disposition home or self-care (01) ==
LOC: HO.HMGCX 15:13
PROVIDERS: PCP Nurse Practitioner Family; Visit Provider Nurse Practitioner Family
DX: I50.810 Right heart failure, unspecified (principal); R01.1 Cardiac murmur, unspecified; J96.01 Acute respiratory failure with hypoxia
CPT/HCPCS: 36415; 71046; 84443; 85007; 85027

== ENCOUNTER → 2023-11-08 23:59 | Outpatient (BNV) | payer OTHER, SELFPAY | PROVIDERS: PCP Nurse Practitioner Family; Visit Provider Nurse Practitioner Family | DX: J10.1 Influenza due to other identified influenza virus with other respiratory manifestations (principal); J96.01 Acute respiratory failure with hypoxia | CPT/HCPCS: G0180 ==

== ENCOUNTER 2023-11-19 06:08 | Emergency (ER) | payer OTHER, SELFPAY ==
[2023-11-19] VITALS (20 sets, daily range): BP systolic 44–229; BP diastolic 22–167; PULSE 60–134; RESP 15–22; TEMP 35–36.5; O2SAT 91–99; BMI 56.3
--- NOTE | ~2023-11-19 | CT_ITS ---
EXAMINATION: CT angio chest PE protocol, CT abdomen pelvis w IV con INDICATION: 68-year-old male with acute hypoxia, respiratory failure and elevated white blood cells COMPARISON: CT abdomen from 11/18/2020 and CTA chest from 07/28/2012 TECHNIQUE: Prior to contrast administration, noncontrast localization images were obtained. Subsequently, multidetector volumetric imaging was performed from the thoracic inlet to below the pubis symphysis following the administration of 100 mL Omnipaque 350 intravenous contrast. No contrast reaction reported Sagittal, coronal, and MIP oblique sagittal reformatted images were obtained on the CT workstation, uploaded to PACS, and reviewed. This CT examination was performed using dose optimization techniques as appropriate, variously including the following: *Automated exposure control. *Adjustment of mA and/or kV according to patient size (this includes techniques or standardized protocols for targeted exams where dose is matched to indication/reason for exam, i.e., extremities or head). *Use of iterative reconstruction technique. Total exam dose-length product 1025 mGy-cm FINDINGS: QUALITY OF STUDY/CONTRAST BOLUS: Satisfactory. Due to motion and patient body habitus evaluation is limited PULMONARY ARTERIES: There are no filling defects in the main, lobar, or segmental pulmonary arteries to suggest pulmonary embolism. The central pulmonary arteries are normal. THORACIC AORTA:There is a normal left-sided three-vessel aortic arch. No dissection. The aorta is normal in caliber. LUNG: There are bilateral patchy airspace disease with consolidations seen an air bronchogram bilaterally. PLEURA: There is pleural thickening and small pleural effusion on the left. MEDIASTINUM: There is endotracheal tube seen with the tip above the uylsses. Nasogastric tube is seen in this esophagus and stomach. No evidence of septal bowing or right heart strain. The heart is enlarged without evidence of pericardial effusion.. There is no pericardial effusion. No pathologically enlarged mediastinal lymph nodes. CHEST WALL/AXILLA: No axillary or internal mammary lymphadenopathy. LIVER, GALLBLADDER, AND BILIARY TREE: The liver is normal in shape, size and attenuation. No focal hepatic lesion. There is stable cyst in the left lobe of the liver. No intrahepatic biliary ductal dilatation. The gallbladder demonstrates no obvious pericholecystic inflammatory changes or gallbladder wall thickening. No cholelithiasis. No perihepatic ascites. PANCREAS: Normal size. No definite mass, surrounding fluid, or inflammatory changes. SPLEEN: Normal size. No focal lesion. No perisplenic ascites. ADRENAL GLANDS: Normal in size; no mass. KIDNEYS AND URETERS: The kidneys are normal in size, shape, and attenuation. No hydronephrosis or hydroureter. No renal calculi. GASTROINTESTINAL TRACT: No evidence of free fluid or free air within the abdomen. The stomach is non-distended. Non-distended loops of small bowel are identified. No evidence of colonic wall thickening or surrounding inflammatory changes. The appendix is not visualized; no fat stranding is noted in the expected location of the appendix. ABDOMINAL WALL: No hernias. LYMPHOVASCULAR STRUCTURES: No lymphadenopathy. The aorta is normal in caliber. There is no aortic dissection or dilatation BLADDER: Urinary bladder decompressed via Muir catheter. PELVIC VISCERA: Unremarkable. OSSEOUS STRUCTURES: There are multilevel degenerative changes no evidence of fractures. CT/CT angio chest PE protocol IMPRESSION: 1. No evidence of pulmonary embolism. 2. Bilateral patchy airspace disease with consolidations and air bronchogram. 3. Cardiomegaly. 4. No acute intra-abdominal findings. VTE: Negative. Technically limited study
--- NOTE | ~2023-11-19 | XR_ITS ---
EXAMINATION: XR CHEST CLINICAL INFORMATION: ET tube placement. COMPARISON: 11/04/2023 TECHNIQUE: Frontal view of the chest was obtained. FINDINGS: ET tube tip is approximately 2.2 cm above the ulysses. NG tube is in place, side wall close to the GE junction, distal tip not included. Left hemithorax is not entirely included. Prominent cardiac silhouette and patchy bilateral pulmonary opacities. Elevated right hemidiaphragm. Degenerative changes. XR/XR chest 1V IMPRESSION: Lines as described. Patchy pulmonary opacities suspicious for pneumonias.
--- NOTE | ~2023-11-19 | CT_ITS ---
EXAMINATION: CT angio chest PE protocol, CT abdomen pelvis w IV con INDICATION: 68-year-old male with acute hypoxia, respiratory failure and elevated white blood cells COMPARISON: CT abdomen from 11/18/2020 and CTA chest from 07/28/2012 TECHNIQUE: Prior to contrast administration, noncontrast localization images were obtained. Subsequently, multidetector volumetric imaging was performed from the thoracic inlet to below the pubis symphysis following the administration of 100 mL Omnipaque 350 intravenous contrast. No contrast reaction reported Sagittal, coronal, and MIP oblique sagittal reformatted images were obtained on the CT workstation, uploaded to PACS, and reviewed. This CT examination was performed using dose optimization techniques as appropriate, variously including the following: *Automated exposure control. *Adjustment of mA and/or kV according to patient size (this includes techniques or standardized protocols for targeted exams where dose is matched to indication/reason for exam, i.e., extremities or head). *Use of iterative reconstruction technique. Total exam dose-length product 1025 mGy-cm FINDINGS: QUALITY OF STUDY/CONTRAST BOLUS: Satisfactory. Due to motion and patient body habitus evaluation is limited PULMONARY ARTERIES: There are no filling defects in the main, lobar, or segmental pulmonary arteries to suggest pulmonary embolism. The central pulmonary arteries are normal. THORACIC AORTA:There is a normal left-sided three-vessel aortic arch. No dissection. The aorta is normal in caliber. LUNG: There are bilateral patchy airspace disease with consolidations seen an air bronchogram bilaterally. PLEURA: There is pleural thickening and small pleural effusion on the left. MEDIASTINUM: There is endotracheal tube seen with the tip above the ulysses. Nasogastric tube is seen in this esophagus and stomach. No evidence of septal bowing or right heart strain. The heart is enlarged without evidence of pericardial effusion.. There is no pericardial effusion. No pathologically enlarged mediastinal lymph nodes. CHEST WALL/AXILLA: No axillary or internal mammary lymphadenopathy. LIVER, GALLBLADDER, AND BILIARY TREE: The liver is normal in shape, size and attenuation. No focal hepatic lesion. There is stable cyst in the left lobe of the liver. No intrahepatic biliary ductal dilatation. The gallbladder demonstrates no obvious pericholecystic inflammatory changes or gallbladder wall thickening. No cholelithiasis. No perihepatic ascites. PANCREAS: Normal size. No definite mass, surrounding fluid, or inflammatory changes. SPLEEN: Normal size. No focal lesion. No perisplenic ascites. ADRENAL GLANDS: Normal in size; no mass. KIDNEYS AND URETERS: The kidneys are normal in size, shape, and attenuation. No hydronephrosis or hydroureter. No renal calculi. GASTROINTESTINAL TRACT: No evidence of free fluid or free air within the abdomen. The stomach is non-distended. Non-distended loops of small bowel are identified. No evidence of colonic wall thickening or surrounding inflammatory changes. The appendix is not visualized; no fat stranding is noted in the expected location of the appendix. ABDOMINAL WALL: No hernias. LYMPHOVASCULAR STRUCTURES: No lymphadenopathy. The aorta is normal in caliber. There is no aortic dissection or dilatation BLADDER: Urinary bladder decompressed via Muir catheter. PELVIC VISCERA: Unremarkable. OSSEOUS STRUCTURES: There are multilevel degenerative changes no evidence of fractures. CT/CT abdomen pelvis w IV con IMPRESSION: 1. No evidence of pulmonary embolism. 2. Bilateral patchy airspace disease with consolidations and air bronchogram. 3. Cardiomegaly. 4. No acute intra-abdominal findings. VTE: Negative. Technically limited study
--- NOTE | ~2023-11-19 | CT_ITS ---
EXAMINATION: CT HEAD WITHOUT CONTRAST CLINICAL INFORMATION: Change in mental status. COMPARISON: CT scan of the head 05/01/2020. TECHNIQUE: Contiguous axial imaging was performed from the skull base to vertex without intravenous administration of contrast. This CT examination was performed using dose optimization techniques as appropriate, variously including the following: *Automated exposure control *Adjustment of mA and/or kV according to patient size (this includes techniques or standardized protocols for targeted exams where dose is matched to indication/reason for exam; i.e. extremities or head) *Use of iterative reconstruction technique DLP: 935 mGy-cm FINDINGS: There is no acute intracranial hemorrhage or abnormal extra-axial collection postcontrast images reveal no abnormal intracranial mass or enhancement. There is no intracranial mass effect or midline shift. No hydrocephalus. 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 Scattered nonspecific foci of hypoattenuation are also visualized within the periventricular white matter. Carranza-white matter differentiation is otherwise preserved and there is no evidence of acute territorial infarct. The calvarium and skull base are intact. Mastoid air cells and middle ear cavities are well aerated. No active paranasal sinus disease. 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 No evidence of acute territorial infarct or hemorrhage. No abnormal intracranial mass or enhancement.
--- NOTE | 2023-11-19 06:25 | ECG_ITS ---
Test Reason : UNRESPONSIVE Blood Pressure : / mmHG Vent. Rate : 106 BPM Atrial Rate : 106 BPM P-R Int : 232 ms QRS Dur : 114 ms QT Int : 380 ms P-R-T Axes : 000 107 042 degrees QTc Int : 504 ms Sinus tachycardia with 1st degree A-V block Rightward axis Borderline ECG When compared with ECG of 10-OCT-2023 05:12, Sinus rhythm has replaced Atrial fibrillation Vent. rate has increased BY 61 BPM QRS axis Shifted right Nonspecific T wave abnormality no longer evident in Lateral leads QT has lengthened Referred By: Adriana Huggins Electronically Signed By:Giacomo Campbell
[2023-11-19] MEDS: fentaNYL citrate/NS 1,000 MCG/100 ML PLAST..BAG 2.5 MCG IVCONT ×2 (06:35→08:15)
[2023-11-19] MEDS: 0.9 % Sodium Chloride 500 ML IV (06:37)
[2023-11-19 06:40] LABS: Basophils Absolute Auto 0.2 X10*3/uL (0.0-0.2); Basophils Percent Auto 0.8 % (0-2); Eosinophils Absolute Auto 0.3 X10*3/uL (0.0-0.4); Eosinophils Percent Auto 1.4 % (0-4); Hematocrit 39.7 % (42.0-52.0); Imm Gran Abs Auto 0.83 X10*3/uL (0.00-0.03); Imm Gran Pct Auto 3.5 % (0.0-0.4); Lymphocytes Percent Auto 29.4 % (20-40); MANUAL DIFF FLAG SCAN; Mean Corpuscular HGB Conc 30.2 g/dl (31.0-36.0); Mean Corpuscular Volume 95.9 fL (80.0-98.0); Mean Platelet Volume 9.9 fL (9.4-12.4); Monocytes Absolute Auto 1.1 X10*3/uL (0.1-1.2); Monocytes Percent Auto 4.5 % (2-11); NRBC Pct Auto 0.4 /100WBC (0.0-0.2); Neutrophils Absolute Auto 14.2 x10*3/uL (2.0-8.3); Neutrophils Percent Auto 60.4 % (45-73); Platelet Count 321 X10*3/uL (160-400); Red Blood Count 4.14 X10*6/uL (4.60-5.80); Red Cell Distribution Width 17.3 % (11.0-16.0); SCAN SMEAR FLAG 1; White Blood Count 23.6 X10*3/uL (4.8-10.8)
[2023-11-19 06:41] LABS: Lymphocytes Absolute Auto 6.9 X10*3/uL (1.2-4.9)
--- NOTE | 2023-11-19 06:41 | ED.SOB ---
HPI - SOB/Dyspnea General Chief Complaint: Dyspnea Stated Complaint: SOB Time Seen by Provider: 11/19/23 06:24 Source: EMS and old records reviewed Mode of arrival: EMS Limitations: altered mental status History of Present Illness HPI Narrative: 68 yo male with PMH of pneumonia, CKD, right heart failure, hypomagnesemia, LALI, HLD, HTN, CVA in 2019, DM, pulm arterial HTN, just seen and treated here at the start of October for weakness and syncope - found to have hypoxic resp failure in setting of flu A, dCHF, hypoxia was DC home. EMS brought him in tonight with little information stating that spouse found him with difficulty breathing. He was hypoxic even on NRB in 70s to 80s and given neb en route. On arrival to the ED he was not responding to verbal or tactile stimuli MD elicited complaint: shortness of breath Pertinent past history: congestive heart failure, diabetes and pneumonia Onset (ago): unknown Context: recent illness Timing: progressively worsening Severity: severe Exacerbating factors: other (unknown) Relieving factors: oxygen Known history of: congestive heart failure Associated symptoms: denies other symptoms Treatment prior to arrival: oxygen and bronchodilator Related Data Home Medications Medication Instructions Recorded Confirmed aspirin 81 mg chewable tablet 81 mg PO DAILY 09/29/23 09/29/23 Previous Rx's Medication Instructions Recorded atorvastatin 80 mg tablet 80 mg PO DAILY #90 tabs 06/23/23 furosemide 40 mg tablet 40 mg PO DAILY #90 tabs 06/23/23 duloxetine 30 mg capsule,delayed 30 mg PO BID 30 days #60 caps 07/20/23 release magnesium oxide 400 mg (241.3 mg 400 mg PO DAILY #90 tabs 07/20/23 magnesium) tablet lisinopril 40 mg tablet 40 mg PO DAILY #90 tabs 07/24/23 metformin 500 mg tablet 500 mg PO BID for diabetes 08/08/23 mellitus #180 tabs amlodipine 10 mg tablet 10 mg PO DAILY #0 tabs 10/11/23 hydralazine 25 mg tablet 25 mg PO TID #0 tabs 10/11/23 allopurinol 300 mg tablet 300 mg PO BID 90 days #180 tabs 11/02/23 amoxicillin 875 mg-potassium 1 tab PO BID 10 days #20 tabs 11/04/23 clavulanate 125 mg tablet azithromycin 250 mg tablet See Rx Instructions PO .COMPLEX #6 11/04/23 tabs ketoconazole 200 mg tablet 200 mg PO DAILY 5 days #5 tabs 11/04/23 Allergies Allergy/AdvReac Type Severity Reaction Status Date / Time No Known Allergies Allergy Verified 11/04/23 14:23 Review of Systems Review of Systems: ROS unable to be obtained due to altered mental status [facility] Past Medical History Source: old records reviewed Medical History Morbid obesity Screening PSA (prostate specific antigen) Elevated serum creatinine Right heart failure Leg pain FOREST (acute kidney injury) Leukocytosis LALI (obstructive sleep apnea) Hyperlipidemia HTN (hypertension) Diastolic heart failure Newly diagnosed diabetes Acute gout of left foot Chronic fatigue Pulmonary arterial hypertension Cerebrovascular accident (CVA) Surgical History Hx of shoulder surgery No pertinent past surgical history Family History Family History Father Blood clot in vein Mother Cancer Social History Social History Household Members: Family Housing: Apartment Do you presently have visiting nurse or other home services: No Unable to assess alcohol history related to: Unable to respond Patient Tobacco Use Status: Never used Tobacco Years Smoked: nonsmoker Advance Directives: Yes Advance Directives on File: Yes Advance Directives Date on File: 12/03/20 service: No Current occupational status: unemployed Physical Exam Vital Signs: Vital Signs: Last Vital Signs Pulse 86 11/19/23 07:09 Resp 22 H 11/19/23 07:09 BP 114/64 11/19/23 07:09 Pulse Ox 93 11/19/23 07:09 O2 Del Method Ambu-Bag 11/19/23 06:23 FiO2 100 11/19/23 06:32 BMI result Body Mass Index 56.3 Appearance: unresponsive on arrival, leaning over in bed to the left cyanotic poor resp effort severe acute distress. Eyes: Pupils equal, round and reactive to light. sluggish 4mm ENT: Pharynx lips dusky Neck: Short obese neck CVS: Normal heart rate and rhythm. Pulses decreased Respiratory: poor effort, hypoxic, sig resp distress Abdomen: Soft and nontender. Obese has contusion on right lower abdomen : no crepitus, scrotum red but no abscess noted Skin: Skin cool clammy and dusky. pale skin color. Extremities: trace ankle pitting edema Neuro: no real response to verbal or tactile stimuli no seizure activity Course Course Course Narrative: 734am notified spouse Lenka of condition she is HCP he woke her up and stated that something was wrong and told her he was having a hard time breathing - he woke her up at 4am then settled down and woke her up again. He had some mild trouble breathing yesterday. Medications Administered Generic Name Dose Route Start Last Admin Trade Name Freq PRN Reason Stop Dose Admin Fentanyl 1,000 mcg in 100 mls @ 0 mls/hr 11/19/23 06:30 11/19/23 07:09 Sublimaze/Ns IVCONT 50 mcg/hr .Q0M CARLOS 5 mls/hr Titration Protocol Per Protocol Discontinued Medications Generic Name Dose Route Start Last Admin Trade Name Freq PRN Reason Stop Dose Admin Sodium Chloride 500 mls @ 500 mls/hr 11/19/23 06:30 11/19/23 06:37 Ns IV 11/19/23 07:29 500 mls/hr .Q1H CARLOS Administration Medical Decision Making Medical Decision Making [facility] Narrative: 68 yo male with PMH of pneumonia, CKD, right heart failure, hypomagnesemia, LALI, HLD, HTN, CVA in 2019, DM, pulm arterial HTN, here with sig respiratory distress and on arrival in need of imminent airway we did bag him up to 100% but he still did not respond to interventions and has poor neuro exam. At this time intubation done, nice CT scan to look for cause including pneumonia, VTE, ICH, stroke, acute abdominal pathology. IVF gentle ordered given lactic acid. He will also need empiric zosyn signed out to Dr. Shaw at 730am Differential Diagnosis Differential Diagnoses: The differential diagnosis associated with the presentation includes ICH, pneumonia, resp arrest, VTE, seizures, retention Admission/Observation Consideration of admission/observation: Escalation of care including admission/observation considered Lab Data [facility] Lab Attestation statement: I reviewed the patient's lab results. 11/19/23 06:31 11/19/23 06:31 Labs: Lab Results 11/19/23 11/19/23 Range/Units 06:31 06:35 WBC 23.6 H (4.8-10.8) X10*3/uL RBC 4.14 L (4.60-5.80) X10*6/uL Hgb 12.0 L (14.0-18.0) g/dl Hct 39.7 L (42.0-52.0) % MCV 95.9 (80.0-98.0) fL MCH 29.0 (27.0-33.0) pg MCHC 30.2 L (31.0-36.0) g/dl RDW 17.3 H (11.0-16.0) % Plt Count 321 (160-400) X10*3/uL MPV 9.9 (9.4-12.4) fL Immature Gran % (Auto) 3.5 H (0.0-0.4) % Neut % (Auto) 60.4 (45-73) % Lymph % (Auto) 29.4 (20-40) % Clay % (Auto) 4.5 (2-11) % Eos % (Auto) 1.4 (0-4) % Baso % (Auto) 0.8 (0-2) % Lymph # (Auto) 6.9 H (1.2-4.9) X10*3/uL Clay # (Auto) 1.1 (0.1-1.2) X10*3/uL Eos # (Auto) 0.3 (0.0-0.4) X10*3/uL Baso # (Auto) 0.2 (0.0-0.2) X10*3/uL Abs Immat Gran (auto) 0.83 H (0.00-0.03) X10*3/uL Absolute Neuts (auto) 14.2 H (2.0-8.3) x10*3/uL Absolute Nucleated RBC 0.090 H (0.0-0.012) X10*3/uL Nucleated RBC % (auto) 0.4 H (0.0-0.2) /100WBC Smear Tech's Comments VERIFIED PT 10.8 L (11.1-13.3) SEC INR 0.9 (0.9-1.1) VBG pH 7.13 L* (7.32-7.43) VBG pCO2 69 mmHg VBG pO2 74 mmHg VBG HCO3 23 (22-26) mmol/L VBG O2 Saturation 84.0 % VBG Base Excess -6.7 mmol/L Sodium 143 (135-145) mmol/L Potassium 3.6 (3.3-5.1) mmol/L Chloride 106 (96-108) mmol/L Carbon Dioxide 23 (22-29) mmol/L Anion Gap 18 (12-20) BUN 17 H (9-16) mg/dL Creatinine 1.27 (0.5-1.4) mg/dL Estim Creat Clear Calc 81.4 Estimated GFR 56 Random Glucose 308 H (60-115) mg/dL Lactic Acid 5.2 H* (0.5-2.0) mmol/L Calcium 9.2 (8.4-10.2) mg/dL Magnesium 2.3 (1.6-2.6) mg/dL Total Bilirubin 0.4 (0.0-1.0) mg/dL Direct Bilirubin 0.2 (0.0-0.5) mg/dL AST 14 (5-37) U/L ALT 10 (0-40) U/L Alkaline Phosphatase 112 (39-117) U/L Troponin I High Sens 29.3 (<3.5-35.0) ng/L B-Natriuretic Peptide 261 H (<100) pg/mL Total Protein 7.8 (6.5-8.0) g/dL Albumin 3.6 (3.5-5.0) g/dL Procalcitonin 0.09 ng/mL Ethyl Alcohol < 10 mg/dL COVID-19 (DUNIA) Negative (Negative) COVID-19 Clin Com See Note Independent Interpretation I performed an independent interpretation of an: EKG and Plain X-Ray Interpretation: Rate: 106 Rhythm: sinus tach with 1st degree AVB [place]: rightward Normal P waves. 1st degree AVB Normal QRS complex. ST T wave : nonspecific ST T wave changes no ELSY qTC: 504 prior studies: no sig change The study has been interpreted contemporaneously by me. . Radiology Impression Discussion of test interpretation with radiology: I have reviewed the radiologist's reading. Independent Historian Clinical information obtained from an independent historian. History obtained from or confirmed by: EMS External Record Review External record reviewed: Inpatient record Procedures Intubation Intubation Type:: Endotracheal Tube Insertion Intubation Date:: 11/19/23 Time out performed: Yes sedative: Etomidate Mg Given: 10 paralytic: Rocuronium Mg Given: 75 Laryngoscope: fiber optic video scope ET Tube Size: 7.5 ET Tube Uncuffed: Yes Tube Secured Depth (cm): 22 Tube Secured Location: teeth Tube Placement Confirmation: visualized tube passing through cords Patient Tolerated Procedure: well and no complications Intubation Complications: none Critical Care Time Critical Care Time Critical Care Time: Yes Total Critical Care Time: 35 Attestation: review of records, EMS assessment, immediate intervention of hypoxia, repeat assessments I attest to this time spent taking care of the patient Discharge Plan Discharge Clinical Impression: Acute respiratory distress, Hypoxia, Acidosis Altered mental status Qualifiers: Altered mental status type: unspecified Qualified Code(s): R41.82 - Altered mental status, unspecified Patient Disposition: Still a Patient Prescriptions: No Action magnesium oxide 400 mg (241.3 mg magnesium) tablet 400 mg PO DAILY Qty: 90 0RF duloxetine 30 mg capsule,delayed release(DR/EC) 30 mg PO BID 30 Days Qty: 60 3RF lisinopril 40 mg tablet 40 mg PO DAILY Qty: 90 0RF metformin 500 mg tablet 500 mg PO BID Qty: 180 1RF allopurinol 300 mg tablet 300 mg PO BID 90 Days Qty: 180 0RF azithromycin 250 mg tablet See Rx Instructions PO .COMPLEX Qty: 6 0RF Rx Instructions: For 250 mg dose pack: take 500 mg today (day 1), then 250 mg for 4 days (days 2-5) PO amoxicillin-pot clavulanate 875-125 mg tablet 1 tab PO BID 10 Days Qty: 20 0RF ketoconazole 200 mg tablet 200 mg PO DAILY 5 Days Qty: 5 0RF Rx Instructions: please stop your atorvastatin while taking this med aspirin 81 mg Tablet,Chewable 81 mg PO DAILY hydralazine 25 mg Tablet 25 mg PO TID Qty: 0 0RF Protocol: Hold for SBP< HOLD for SBP < : 90 amlodipine 10 mg Tablet 10 mg PO DAILY Qty: 0 0RF Protocol: Hold for SBP< HOLD for SBP < : 90 atorvastatin 80 mg tablet 80 mg PO DAILY Qty: 90 3RF furosemide 40 mg tablet 40 mg PO DAILY Qty: 90 1RF Sepsis Bolus Exclusion Sepsis Bolus Exclusion CHF/Renal Failure This patient met severe sepsis criteria due to the following condition(s):: Lactate>=4mmol/L In my clinical judgement the administration of 30 ml/kg of crystalloid would be detrimental to this patient due to the patient's following conditions:: Stage III or IV Chronic Kidney Disease (GFR<30) and Concern for fluid overload Replace the 30 mls/kg with (*zero amount not acceptable): Crystalloids amount given in mls: (rate must be at least 150cc/hr): 500 Colloids amount given in mls:: 200
[2023-11-19 06:42] LABS: INTERNATIONAL NORM RATIO 0.9 (0.9-1.1); Prothrombin Time 10.8 SEC (11.1-13.3)
[2023-11-19 06:46] LABS: VBG Base Excess -6.7 mmol/L; VBG HCO3 23 mmol/L (22-26); VBG pCO2 69 mmHg; VBG pH 7.13 (7.32-7.43); VBG pO2 74 mmHg
[2023-11-19 06:47] LABS: Venous Blood Gas Refer to POC result
[2023-11-19 06:56] LABS: Troponin-I High Sensitivity 29.3 ng/L (<3.5-35.0)
[2023-11-19 06:57] LABS: B Type Natriuretic Peptide 261 pg/mL (<100)
[2023-11-19 06:59] LABS: Alanine Aminotransferase 10 U/L (0-40); Albumin Level 3.6 g/dL (3.5-5.0); Alkaline Phosphatase 112 U/L (39-117); Anion Gap 18 (12-20); Aspartate Amino Transferase 14 U/L (5-37); Bilirubin Direct 0.2 mg/dL (0.0-0.5); Bilirubin Total 0.4 mg/dL (0.0-1.0); Blood Urea Nitrogen 17 mg/dL (9-16); Calcium 9.2 mg/dL (8.4-10.2); Carbon Dioxide 23 mmol/L (22-29); Chloride 106 mmol/L (96-108); Creatinine Clr Calc Pharmacy 81.4; Estimated Glomerular Filt Rate 56; Ethanol < 10 mg/dL; Glucose Random 308 mg/dL (60-115); Magnesium 2.3 mg/dL (1.6-2.6); Potassium 3.6 mmol/L (3.3-5.1); Sodium 143 mmol/L (135-145); Total Protein 7.8 g/dL (6.5-8.0)
[2023-11-19 07:03] LABS: SLIDE REVIEW VERIFIED
[2023-11-19 07:04] LABS: Lactic Acid 5.2 mmol/L (0.5-2.0)
--- NOTE | 2023-11-19 07:05 | PC.NURSE ---
pt arrived to ER via EMS from home unresponsive in respiratory distress. BVM by EDT and provider. brought to RM 5 for intubation. initial vitals are as follows: HR117 RR41 SPO2 90% via BVM. BP unable to be obtained. IV access 20G R AC established. 0621 Etomidate 10ML administered. Rocuronium7.5ML administered. 0623 successful intubation x1 attempt. size 7.5, 22 @ the lip, positive color change. 0623 BP196/167 HR134 RR15 SPO2 100% 0635 OG tube placed by . Fentanyl drip initiated per DEC. NS 500mL bolus started. labs and EKG obtained by this RN and EDT. report given to oncoming shift.
[2023-11-19 07:12] LABS: Procalcitonin 0.09 ng/mL
[2023-11-19 07:16] LABS: COVID-19 Test Negative (Negative); IDNOW Serial# 152EDE1D
[2023-11-19] MEDS: Albumin Human 25 % 100 ML 133.33 ML IV ×2 (07:30→09:38)
[2023-11-19] MEDS: propofoL 1,000 MG/100 ML VIAL 29.38 MG IVCONT (07:43)
[2023-11-19 07:51] LABS: ABG Refer to POC result
[2023-11-19] MEDS: Magnesium Sulfate/H2O 2 GM/50 ML PIGGYBACK IV (07:51)
[2023-11-19 07:53] LABS: ABG Base Excess -1.7 mmol/L; ABG HCO3 26 mmol/L (22-26); ABG pCO2 58 mmHg (32-45); ABG pH 7.25 (7.35-7.45); ABG pO2 86 mmHg (83-108)
[2023-11-19] MEDS: Norepinephrine Bitartrate/D5W 8 MG/250 ML PLAST..BAG 27.54 MG IV (08:09)
[2023-11-19 08:18] LABS: Appearance Urine Clear; Color Urine Yellow; Glucose Urine UA 250 mg/dL (Negative); Leukocyte Esterase Urine Negative (Negative); Nitrite Urine Negative (Negative); UMIC TRIGGER UACC YES; Urine Blood Trace (Negative); Urine Ketones Negative (Negative); Urine Protein 300 (3+) mg/dL (Neg-Trace)
[2023-11-19] MEDS: Furosemide 40 MG/4 ML VIAL IVPUSH (08:21)
[2023-11-19] MEDS: Piperacillin Sodium/Tazobactam 4.5 GM in 0.9 % Sodium Chloride 100 ML IV (08:23)
[2023-11-19 08:29] LABS: Bacteria Urine None Seen (None Seen); UACC Culture Trigger YES
[2023-11-19 08:33] LABS: Glucose, Whole Blood 230 mg/dL (60-115)
[2023-11-19 08:35] LABS: Reflex Lactate? Lactic Acid Added
--- NOTE | 2023-11-19 09:37 | MHC.EDTECH ---
Called [facility] pt placement at 914. Transferred to who stated that they rejected the pt transfer. Called [facility] transfer center at 916. Transferred to who stated that they rejected the pt transfer. Called [facility] transfer center at 919. Transferred to , awaiting callback from them.
--- NOTE | 2023-11-19 09:50 | PC.NURSE ---
This RN and [facility] assumed care at 0645. Pt had been intubated with fentanyl running at 25 mcg/hr. IV access noted to be 20G in right AC, second IV access gain 20G in left bicep along with third access of 22G in left chest. Muir cath placed with good urine output. Due to agitated and pt bucking tube, fentanyl titrated in increments of 25 mcg to 75 mcg/hr. Pt medicated per DEC. Fentanyl was d/c and propofol administered via providers orders. Pt noted to have hypotensive episode to 40's systolic with a decrease in responsiveness & no radial pulses bilat, provider notified and pts administered norepi drip as noted in DEC with improvements in BP. Propofol ceased via providers orders and fentanyl restarted, titrated per DEC. Pt brought to CT scan for head CT but transported to main CT dept for other imaging needed with two RNs and RT at bedside, pt remained on rn cardiac. No issues noted during CT scan. Paper vital signs printed and placed in pts chart. At this time pt awakes with eyes open to voice but comfortable, able to respond by nodding head to yes or no questions. Vent settings 22/450/80%/8.0 currently. Extremities cool however core pink warm and dry. Core temp 97.7. Muir patent dark yellow clear urine. Pt resting comfortably in bed, pt able to open eyes when name is called, nod head when asked questions and follow commands such as squeeze hands. VSS. Pt remains on rn cardiac, NSR. OG tube placed on intermittent suction. at bedside for short period, has left at this time and taken pts belongings. 's number- [phone] Cinthya.
[2023-11-19] MEDS: iohexoL 350 MG/ML 75 ML INFUS..BTL 100 ML IV (09:52)
--- NOTE | 2023-11-19 09:55 | PC.NURSE ---
Story from : reports to RNs that pt was doing well last few days but suddenly woke up this morning saying he did not feel right and was having a hard time breathing. called for EMS. Pt had recent hospitalization in September for Flu A.
--- NOTE | 2023-11-19 10:00 | PC.NURSE ---
Pt noted to be hypotensive, systolic in the 80s. Pt remains alert to verbal stimuli and following commands. Provider alerted and norepi drip restarted at 0.02 mcg/kg/min with improvements in BP. Pt noted to be resting comfortably.
--- NOTE | 2023-11-19 10:12 | PC.NURSE ---
In MAR documenting on old d/c Fentanyl order (concentration same), now documenting on new Fentanyl order in MAR for future and current flow sheet documenting
--- NOTE | 2023-11-19 10:17 | MHC.CM.ED ---
Received notification from [facility] that patient is active with their agency. Referral made in [facility] so they can follow for d/c needs.
[2023-11-19 10:23] LABS: ABG Base Excess 0.3 mmol/L; ABG HCO3 25 mmol/L (22-26); ABG pCO2 44 mmHg (32-45); ABG pH 7.36 (7.35-7.45); ABG pO2 89 mmHg (83-108)
--- NOTE | 2023-11-19 10:40 | MHC.EDTECH ---
Urine catheter bag emptied, 400ml of urine output
[2023-11-19 10:48] LABS: ABG Refer to POC result
--- NOTE | 2023-11-19 10:49 | PC.NURSE ---
Report given to Elisa MEANS at [facility]. No further questions at this time
[2023-11-19] MEDS: vancomycin/NS 2,000 MG/500 ML PLAST..BAG 250 MG IV (10:53)
[2023-11-19 10:54] LABS: Amphetamine Screen Urine Not Detected (Not Detect); Barbiturates, Urine Not Detected (Not Detect); Benzodiazepines Screen Urine Not Detected (Not Detect); Cannabinoid Screen Urine Not Detected (Not Detect); Cocaine Screen Urine Not Detected (Not Detect); Fentanyl, urine POSITIVE (Not Detect); Opiate Screen Urine Not Detected (Not Detect); Phencyclidine Screen Urine Not Detected (Not Detect)
[2023-11-19 11:00] LABS: ~Lactic Acid-LAB USE ONLY 2.1 mmol/L (0.5-2.0)
[2023-11-19 11:08] LABS: IDNOW Serial# 152EDE1D; Influenza A Negative (Negative); Influenza B2 Negative (Negative)
--- NOTE | 2023-11-19 11:27 | PC.RT ---
RT NOTE: RT assisted EMS w/ pt transfer to EMS ventilator. Pt celia well for approx 20 min on current vent settings. No complications.
[2023-11-19 12:42] LABS: Reflex Lactate? 2 Y
== END 2023-11-19 11:50 | disposition short-term general hospital (02) ==
PROVIDERS: Emergency Medicine; Emergency Provider Student in an Organized Health Care Education/Training Program; PCP Nurse Practitioner Family
DX: R41.82 Altered mental status, unspecified (principal); R06.03 Acute respiratory distress; R09.02 Hypoxemia; E87.20 Acidosis, unspecified; R06.02 Shortness of breath; I11.0 Hypertensive heart disease with heart failure; I50.9 Heart failure, unspecified; E11.9 Type 2 diabetes mellitus without complications; E78.5 Hyperlipidemia, unspecified; Z86.73 Personal history of transient ischemic attack (TIA), and cerebral infarction without residual deficits; Z79.84 Long term (current) use of oral hypoglycemic drugs; Z79.02 Long term (current) use of antithrombotics/antiplatelets
CPT/HCPCS: 31500; 36415; 51702; 70450; 71045; 71275; 74177; 80048; 80076; 80307; 81001; 82803; 82947; 83605; 83735; 83880; 84145; 84484; 85025; 85610; 87040; 87086; 87502; 87635; 93005; 94002; 96361; 96365; 96366; 96367; 96368; 96375; 99285; J1940; J2543; J2704; J3010; J3370; J3475; P9047; Q9967

== ENCOUNTER → 2023-11-19 06:25 | Outpatient (BNV) | payer OTHER, SELFPAY | PROVIDERS: Emergency Provider Student in an Organized Health Care Education/Training Program; PCP Nurse Practitioner Family; Visit Provider Internal Medicine Cardiovascular Disease | DX: I44.0 Atrioventricular block, first degree (principal) | CPT/HCPCS: 93010 ==

== ENCOUNTER 2023-12-02 10:30 | Outpatient (REF) | payer OTHER, SELFPAY ==
[2023-12-02 13:38] LABS: Anion Gap 14 (12-20); Blood Urea Nitrogen 23 mg/dL (9-16); Calcium 9.2 mg/dL (8.4-10.2); Carbon Dioxide 28 mmol/L (22-29); Chloride 106 mmol/L (96-108); Estimated Glomerular Filt Rate 56; Glucose Random 99 mg/dL (60-115); Potassium 4.4 mmol/L (3.3-5.1); Sodium 144 mmol/L (135-145)
== END 2023-12-02 10:31 | disposition home or self-care (01) ==
LOC: HO.HVNA 10:30
PROVIDERS: PCP Nurse Practitioner Family; Visit Provider Nurse Practitioner Family
DX: N17.9 Acute kidney failure, unspecified (principal)
CPT/HCPCS: 36415; 80048

== ENCOUNTER 2024-10-26 16:09 | Inpatient (IN) | payer MEDICARE, SELFPAY ==
[2024-10-26] VITALS (31 sets, daily range): BP systolic 72–163; BP diastolic 23–97; PULSE 65–135; RESP 12–30; TEMP 34.4–38.8; O2SAT 86–99; BMI 47.5; BMI 48.1
--- NOTE | ~2024-10-26 | XR_ITS ---
CLINICAL HISTORY: sob 1 view chest x-ray Comparison: CR/SR - XR CHEST 1V - 11/19/23 07:21 EST CR/SR - XR CHEST 1V - 10/03/23 13:06 EST Findings: Heterogeneous airspace opacities within the bilateral lungs, predominating at the lung bases. Mild pulmonary hypoinflation. Endotracheal tube 3.5 cm above the ulysses. Interval removal of the nasogastric tube. Normal size heart. No acute fracture. IMPRESSION: Bilateral pulmonary infiltrates without gross interval change. This document has been electronically signed by: Shantel West MD on 10/26/2024 16:46:40
--- NOTE | ~2024-10-26 | XR_ITS ---
CLINICAL HISTORY: og placement 1 view chest x-ray Comparison: CR/NH/SR - XR CHEST 1V - 10/26/24 16:25 EST Findings: There are airspace opacities within the lower lungs, similar to the prior study. The endotracheal tube has been removed. Normal size heart. No acute fracture. IMPRESSION: The orogastric tube tip is distal to the proximal body of the stomach. This document has been electronically signed by: Shantel West MD on 10/26/2024 20:42:34
--- NOTE | 2024-10-26 16:16 | ECG_ITS ---
Test Reason : cp Blood Pressure : */* mmHG Vent. Rate : 127 BPM Atrial Rate : 127 BPM P-R Int : 204 ms QRS Dur : 110 ms QT Int : 268 ms P-R-T Axes : 30 71 101 degrees QTcB Int : 389 ms Sinus tachycardia Nonspecific ST and T wave abnormality Abnormal ECG When compared with ECG of 19-Nov-2023 06:42, QRS axis Shifted left ST now depressed in Lateral leads Nonspecific T wave abnormality, improved in Inferior leads Nonspecific T wave abnormality now evident in Lateral leads Referred By: Ainsley Hudson Electronically Signed By: JET NOVOA MD
--- NOTE | 2024-10-26 16:25 | ED_ITS ---
HPI - CPR General Chief Complaint: Respiratory Arrest Stated Complaint: DIFF BREATHING. ON BIPAP. 75 ON RA. 99 ON BIPAP Time Seen by Provider: 10/26/24 16:15 History of Present Illness HPI narrative: The patient is a 69-year-old male with a PMH significant for?HTN, HLD, CVA in 2019, [id number] diabetes type 2, pulmonary arterial hypertension, HFpEF, gout, and LALI on CPAP at night. Presented today in extremis short of breath. Was given nitro and neb treatment by EMS. Intubated in the field just prior to coming to the ED. patient was intubated using an 8 O2. Was noted to have elevated blood pressure. Patient from home. Has a history of congestive heart failure with preserved EF. Related Data Home Medications ?Medication ?Instructions ?Recorded ?Confirmed aspirin 81 mg chewable tablet 81 mg PO DAILY 09/29/23 10/26/24 cholecalciferol (vitamin D3) 25 25 mcg PO DAILY 10/26/24 10/26/24 mcg (1,000 unit) tablet (Vitamin D3) Previous Rx's ?Medication ?Instructions ?Recorded oxygen continuous 2-3L/min-pt #1 ea 12/06/23 needs portable tanks-appropriate # to allow him to attend appts. duloxetine 30 mg capsule,delayed 30 mg PO BID #180 caps 01/20/24 release atorvastatin 80 mg tablet 80 mg PO DAILY #90 tabs 05/15/24 allopurinol 300 mg tablet 300 mg PO BID 90 days #180 tabs 06/21/24 lisinopril 40 mg tablet 40 mg PO DAILY #90 tabs 08/22/24 metformin 500 mg tablet 500 mg PO BID for diabetes 09/22/24 mellitus #180 tabs furosemide 40 mg tablet 40 mg PO DAILY #90 tabs 10/02/24 Allergies Allergy/AdvReac Type Severity Reaction Status Date / Time No Known Allergies Allergy Verified 11/04/23 14:23 Review of Systems 2 Review of Systems: Positive shortness of breath Yes all other systems are reviewed and are negative PMFSH Past Medical History PMFSH Narrative: Unable to obtain past medical history from patient. We review patient's old records. Source: old records reviewed Medical History Morbid obesity Screening PSA (prostate specific antigen) Elevated serum creatinine Right heart failure Leg pain FOREST (acute kidney injury) Leukocytosis LALI (obstructive sleep apnea) Hyperlipidemia HTN (hypertension) Diastolic heart failure Newly diagnosed diabetes Acute gout of left foot Chronic fatigue Pulmonary arterial hypertension Cerebrovascular accident (CVA) Surgical History Hx of shoulder surgery No pertinent past surgical history Family History Family History Father Blood clot in vein Mother Cancer Social History Social History Household Members: Family Housing: Apartment Do you presently have visiting nurse or other home services: No Unable to assess alcohol history related to: Unable to respond Patient Tobacco Use Status: Never used Tobacco Years Smoked: nonsmoker Advance Directives: Yes Advance Directives on File: Yes Advance Directives Date on File: 12/03/20 service: No Current occupational status: unemployed Physical Exam 2 Vital Signs: Vital Signs: Last Vital Signs Temp 100.4 F 10/26/24 18:51 Pulse 75 10/26/24 19:31 Resp 22 H 10/26/24 19:31 BP 147/72 H 10/26/24 19:31 Pulse Ox 97 10/26/24 19:31 O2 Del Method Mechanical Ventil ation 10/26/24 19:19 FiO2 90 10/26/24 17:54 BMI result Body Mass Index 47.5 Toxic appearing male looks stated age intubated larger in size Eyes: Pupils equal, round and reactive to light. ENT: Pharynx normal. Neck: Normal inspection. Neck supple. No lymph nodes noted. No crepitus CVS: Normal heart rate and rhythm. Pulses normal. Normal S1 and S2 Respiratory: Diminished breath sounds bilaterally positive rhonchi bilaterally Abdomen: Soft and nontender. No rigidity. No distention. good BS x4 Skin: Skin warm and dry. Normal skin color. Normal skin turgor. Extremities: No lower extremity edema. Neurovascular intact to all extremities. No Lacerations. No Rash Neuro: Intubated no purposeful movement Medications Administered Generic Name Dose Route Start Last Admin Trade Name Freq PRN Reason Stop Dose Admin Propofol 1,000 mg in 100 mls @ 0 mls/hr 10/26/24 16:30 10/26/24 17:47 Diprivan IVCONT 0 mcg/kg/min .Q0M CARLOS 0 mls/hr Titration Protocol Per Protocol Fentanyl 1,000 mcg in 100 mls @ 0 mls/hr 10/26/24 18:30 10/26/24 19:21 Sublimaze/Ns IVCONT 75 mcg/hr .Q0M CARLOS 7.5 mls/hr Titration Protocol Per Protocol Norepinephrine Bitartrate 8 mg in 250 mls @ 0 mls/hr 10/26/24 18:30 10/26/24 18:37 Levophed IVCONT 0.05 mcg/kg/min .Q0M CARLOS 14.07 mls/hr Administration Protocol Per Protocol Discontinued Medications Generic Name Dose Route Start Last Admin Trade Name Freq PRN Reason Stop Dose Admin Furosemide 40 mg 10/26/24 16:19 10/26/24 16:28 Furosemide 40 Mg/4 Ml Vial IVPUSH 10/26/24 16:20 40 mg ONCE ONE Administration Protocol Nitroglycerin/Dextrose 100 mg in 250 mls @ 0 mls/hr 10/26/24 16:30 10/26/24 18:35 Nitroglycerin/D5w IVCONT Infused .Q0M CARLOS Titration Protocol Per Protocol Cefepime HCl 2 gm in 50 mls @ 100 mls/hr 10/26/24 17:17 10/26/24 17:52 Maxipime IV 10/26/24 17:46 Infused ONCE ONE Infusion Acetaminophen 1,000 mg in 100 mls @ 400 mls/hr 10/26/24 17:20 10/26/24 17:39 Ofirmev IV 10/26/24 17:34 Infused ONCE ONE Infusion Sodium Chloride 1,000 mls @ 999 mls/hr 10/26/24 17:30 10/26/24 18:48 Ns IV 10/26/24 18:30 Infused .Q1H1M CARLOS Infusion Sodium Chloride 1,000 mls @ 999 mls/hr 10/26/24 17:45 10/26/24 19:20 Ns IV 10/26/24 18:45 Infused .Q1H1M CARLOS Infusion Sodium Chloride 190 mls @ 999 mls/hr 10/26/24 17:45 10/26/24 18:45 Ns IV 10/26/24 17:56 Infused .Q12M CARLOS Infusion Ketamine HCl 75 mg 10/26/24 17:48 10/26/24 18:00 Ketamine Hcl/Ns 50 Mg/5 Ml Syringe IVPUSH 10/26/24 17:49 75 mg ONCE ONE Administration Ketamine HCl 75 mg 10/26/24 18:08 10/26/24 18:19 Ketamine Hcl/Ns 50 Mg/5 Ml Syringe IVPUSH 10/26/24 18:09 75 mg ONCE ONE Administration Nitroglycerin 1 inch 10/26/24 16:19 10/26/24 16:32 Nitroglycerin 2 % Oint 1 Gm Packet TRANSDERMA 10/26/24 16:20 Not Given ONCE ONE Propofol 50 mg 10/26/24 19:26 10/26/24 19:31 Propofol 200 Mg/20 Ml Vial IVPUSH 10/26/24 19:27 50 mg ONCE ONE Administration Medical Decision Making Medical Decision Making MDM Narrative: Dany 5 patient's ET tube there is breath sounds bilaterally. My interpretation of patient's chest x-ray showed an ET tube that is ends right at 1 cm 2 cm above the ulysses. Patient has signs of congestive heart failure on x-ray. Started patient on nitro drip. Nitro paste is still on board. Lasix was given. Patient's O2 sat was approximately 90 on 100%. Increased patient's P as we have a lot of blood pressure to work with patient's blood pressure was approximately 160/70. Started patient on propofol for sedation. Labs were sent. My interpretation of patient's blood gas showed a pH of 7.29 with a pCO2 55 PaO2 79 on 100% of oxygen 10 of PEEP. Consistent with having hypoxia. Consistent with having acute respiratory acidosis with mild CO2 retention. My interpretation of patient's chest x-ray showed bilateral infiltrate. Consistent with CHF. However patient upon getting a rectal temperature probe in showed a temperature 100.5 degrees. White count was elevated. Patient's COVID flu RSV came back positive for influenza and RSV. Discussed the case with the pharmacist. Patient's ideal body weight is 73 kg. Will basis out of this 73 kg and give patient 30 cc/kilos. Cefepime was ordered. Patient's lactate was elevated at over 3. After IV fluids patient's blood pressure start the stabilized. Repeat focal exam for sepsis was done. Essentially unchanged. Finding was discussed with patient's family. Discussed with key entry operator. Patient to be admitted 19:30 repeat focal exam for sepsis was done again. Patient reexamined well- appearing awaiting for ICU admission Differential Diagnosis Differential Diagnoses: The differential diagnosis associated with the presentation includes Congestive heart failure, pneumonia, ACS Admission/Observation Consideration of admission/observation: Escalation of care including admission/observation considered Patient will require admission for further evaluation Consult Healthcare Provider Management of the patient was discussed with: Methodologist (Signs And Displays Salesperson) Lab Data MDM Lab Attestation statement: I reviewed the patient's lab results. 10/26/24 16:48 10/26/24 16:22 Labs: Lab Results 10/26/24 10/26/24 10/26/24 Range/Units 16:22 16:46 16:48 WBC 21.8 H (4.8-10.8) X10*3/uL RBC 4.55 L (4.60-5.80) X10*6/uL Hgb 11.5 L (14.0-18.0) g/dl Hct 39.0 L (42.0-52.0) % MCV 85.7 (80.0-98.0) fL MCH 25.3 L (27.0-33.0) pg MCHC 29.5 L (31.0-36.0) g/dl RDW 16.8 H (11.0-16.0) % Plt Count 239 D (160-400) X10*3/uL MPV 9.9 (9.4-12.4) fL Immature Gran % (Auto) 0.5 H (0.0-0.4) % Neut % (Auto) 90.1 H (45-73) % Lymph % (Auto) 5.6 L (20-40) % [place] % (Auto) 2.7 (2-11) % Eos % (Auto) 0.9 (0-4) % Baso % (Auto) 0.2 (0-2) % Lymph # (Auto) 1.2 (1.2-4.9) X10*3/uL [place] # (Auto) 0.6 (0.1-1.2) X10*3/uL Eos # (Auto) 0.2 (0.0-0.4) X10*3/uL Baso # (Auto) 0.1 (0.0-0.2) X10*3/uL Abs Immat Gran (auto) 0.11 H (0.00-0.03) X10*3/uL Absolute Neuts (auto) 19.6 H (2.0-8.3) x10*3/uL Absolute Nucleated RBC 0.000 (0.0-0.012) X10*3/uL Nucleated RBC % (auto) 0.0 (0.0-0.2) /100WBC Smear Tech's Comments VERIFIED PT 11.6 (10.9-12.4) SEC INR 1.0 (0.9-1.1) O2 Saturation 93.0 % ABG pH at Pt Temp 7.30 L (7.35-7.45) ABG pCO2 at Pt Temp 55 H (32-45) mmHg ABG pO2 at Pt Temp 79 L (83-108) mmHg ABG HCO3 27 H (22-26) mmol/L ABG Base Excess (Actual) 0.3 mmol/L Sodium 145 (135-145) mmol/L Potassium 3.6 (3.3-5.1) mmol/L Chloride 103 (96-108) mmol/L Carbon Dioxide 27 (22-29) mmol/L Anion Gap 19 (12-20) BUN 14 (9-16) mg/dL Creatinine 1.49 H (0.5-1.4) mg/dL Estim Creat Clear Calc 67.7 Estimated GFR 47 Random Glucose 273 H (60-115) mg/dL Lactic Acid 3.7 H* (0.5-2.0) mmol/L Calcium 10.6 H D 10.1 (8.4-10.2) mg/dL Magnesium 2.3 (1.6-2.6) mg/dL Total Bilirubin 0.3 (0.0-1.0) mg/dL Direct Bilirubin 0.1 (0.0-0.5) mg/dL AST 43 H (5-37) U/L ALT 14 (0-40) U/L Alkaline Phosphatase 123 H (39-117) U/L Troponin I High Sens 44.8 H D (<3.5-35.0) ng/L B-Natriuretic Peptide 238 H (<100) pg/mL Total Protein 9.0 H (6.5-8.0) g/dL Albumin 3.9 (3.5-5.0) g/dL Lipase 25 (8-78) U/L Urine Color Urine Appearance Urine pH (5.0-9.0) Ur Specific [place] (1.005-1.025) Urine Protein (Neg-Trace) mg/dL Urine Glucose (UA) (Negative) mg/dL Urine Ketones (Negative) mg/dL Urine Blood (Negative) Urine Nitrite (Negative) Ur Leukocyte Esterase (Negative) Urine RBC (0-2) /HPF Urine WBC (0-5) /HPF Ur Squamous Epith Cells (0-2) /HPF Urine Bacteria (None Seen) Hyaline Casts (0-2) /LPF Influenza Type A (PCR) NEGATIVE (Negative) Influenza Type B (PCR) POSITIVE A (Negative) RSV RNA Qual (PCR) POSITIVE A (Negative) SARS-CoV-2 RNA (RT-PCR) NEGATIVE (Negative) 10/26/24 Range/Units 17:43 WBC (4.8-10.8) X10*3/uL RBC (4.60-5.80) X10*6/uL Hgb (14.0-18.0) g/dl Hct (42.0-52.0) % MCV (80.0-98.0) fL MCH (27.0-33.0) pg MCHC (31.0-36.0) g/dl RDW (11.0-16.0) % Plt Count (160-400) X10*3/uL MPV (9.4-12.4) fL Immature Gran % (Auto) (0.0-0.4) % Neut % (Auto) (45-73) % Lymph % (Auto) (20-40) % [place] % (Auto) (2-11) % Eos % (Auto) (0-4) % Baso % (Auto) (0-2) % Lymph # (Auto) (1.2-4.9) X10*3/uL [place] # (Auto) (0.1-1.2) X10*3/uL Eos # (Auto) (0.0-0.4) X10*3/uL Baso # (Auto) (0.0-0.2) X10*3/uL Abs Immat Gran (auto) (0.00-0.03) X10*3/uL Absolute Neuts (auto) (2.0-8.3) x10*3/uL Absolute Nucleated RBC (0.0-0.012) X10*3/uL Nucleated RBC % (auto) (0.0-0.2) /100WBC Smear Tech's Comments PT (10.9-12.4) SEC INR (0.9-1.1) O2 Saturation % ABG pH at Pt Temp (7.35-7.45) ABG pCO2 at Pt Temp (32-45) mmHg ABG pO2 at Pt Temp (83-108) mmHg ABG HCO3 (22-26) mmol/L ABG Base Excess (Actual) mmol/L Sodium (135-145) mmol/L Potassium (3.3-5.1) mmol/L Chloride (96-108) mmol/L Carbon Dioxide (22-29) mmol/L Anion Gap (12-20) BUN (9-16) mg/dL Creatinine (0.5-1.4) mg/dL Estim Creat Clear Calc Estimated GFR Random Glucose (60-115) mg/dL Lactic Acid (0.5-2.0) mmol/L Calcium (8.4-10.2) mg/dL Magnesium (1.6-2.6) mg/dL Total Bilirubin (0.0-1.0) mg/dL Direct Bilirubin (0.0-0.5) mg/dL AST (5-37) U/L ALT (0-40) U/L Alkaline Phosphatase (39-117) U/L Troponin I High Sens (<3.5-35.0) ng/L B-Natriuretic Peptide (<100) pg/mL Total Protein (6.5-8.0) g/dL Albumin (3.5-5.0) g/dL Lipase (8-78) U/L Urine Color Yellow Urine Appearance Cloudy Urine pH 7.5 (5.0-9.0) Ur Specific [place] 1.020 (1.005-1.025) Urine Protein >=1000 (4+) H (Neg-Trace) mg/dL Urine Glucose (UA) Negative (Negative) mg/dL Urine Ketones Trace (Negative) mg/dL Urine Blood Small (1+) H (Negative) Urine Nitrite Negative (Negative) Ur Leukocyte Esterase Negative (Negative) Urine RBC 0-2 (0-2) /HPF Urine WBC 0-5 (0-5) /HPF Ur Squamous Epith Cells 0-2 (0-2) /HPF Urine Bacteria None Seen (None Seen) Hyaline Casts 3-5 (0-2) /LPF Influenza Type A (PCR) (Negative) Influenza Type B (PCR) (Negative) RSV RNA Qual (PCR) (Negative) SARS-CoV-2 RNA (RT-PCR) (Negative) Independent Interpretation I performed an independent interpretation of an: Plain X-Ray (Chest x-ray consistent with having congestive heart failure ET tube to be grossly in place.) Radiology Impression Discussion of test interpretation with radiology: I have reviewed the radiologist's reading. Independent Historian Clinical information obtained from an independent historian. History obtained from or confirmed by: EMS External Record Review External record reviewed: Office record Patient's previous cardiology note was reviewed. Positive history of diastolic heart failure with preserved EF. Chronic Conditions Patient?s care impacted by: Diabetes and Hypertension Social Determinants Patient?s care significantly limited by Social Determinants of Health including: Problems related to primary support group Critical Care Time Critical Care Time Critical Care Time: Yes Total Critical Care Time: 90 Attestation: I have personally provided 90 minutes of critical care time exclusive of time spent on separately billable procedures. ?Time includes review of lab data, radiology results, discussion with consultants, and monitoring for potential decompensation. ?Interventions were performed as documented above Discharge Plan Discharge Clinical Impression: Congestive heart failure, Influenza, Pneumonia, Respiratory syncytial virus (RSV) Patient Disposition: Admitted As Inpatient
[2024-10-26] MEDS: propofoL 1,000 MG/100 ML VIAL 24.49 MG IVCONT ×2 (16:26→22:14)
[2024-10-26] MEDS: Furosemide 40 MG/4 ML VIAL IVPUSH (16:28)
[2024-10-26] MEDS: Nitroglycerin/D5W 100 MG/250 ML INFUS..BTL IVCONT (16:29)
[2024-10-26 16:33] LABS: ABG Base Excess 0.3 mmol/L; ABG HCO3 27 mmol/L (22-26); ABG pCO2 55 mmHg (32-45); ABG pO2 79 mmHg (83-108)
--- NOTE | 2024-10-26 16:33 | PC.NURSE ---
pt came in with 1 nitro paste on from EMS. per Dr Hudson hold 1 that was ordered here
[2024-10-26 16:35] LABS: Prothrombin Time 11.6 SEC (10.9-12.4)
[2024-10-26 16:49] LABS: Alanine Aminotransferase 14 U/L (0-40); Albumin Level 3.9 g/dL (3.5-5.0); Alkaline Phosphatase 123 U/L (39-117); Anion Gap 19 (12-20); Aspartate Amino Transferase 43 U/L (5-37); Bilirubin Direct 0.1 mg/dL (0.0-0.5); Bilirubin Total 0.3 mg/dL (0.0-1.0); Blood Urea Nitrogen 14 mg/dL (9-16); Calcium 10.6 mg/dL (8.4-10.2); Carbon Dioxide 27 mmol/L (22-29); Chloride 103 mmol/L (96-108); Creatinine Clr Calc Pharmacy 67.7; Estimated Glomerular Filt Rate 47; Glucose Random 273 mg/dL (60-115); Lipase 25 U/L (8-78); Magnesium 2.3 mg/dL (1.6-2.6); Potassium 3.6 mmol/L (3.3-5.1); Sodium 145 mmol/L (135-145)
[2024-10-26 16:56] LABS: Basophils Absolute Auto 0.1 X10*3/uL (0.0-0.2); Basophils Percent Auto 0.2 % (0-2); Eosinophils Absolute Auto 0.2 X10*3/uL (0.0-0.4); Eosinophils Percent Auto 0.9 % (0-4); Hemoglobin 11.5 g/dl (14.0-18.0); Imm Gran Abs Auto 0.11 X10*3/uL (0.00-0.03); Imm Gran Pct Auto 0.5 % (0.0-0.4); Lymphocytes Absolute Auto 1.2 X10*3/uL (1.2-4.9); Lymphocytes Percent Auto 5.6 % (20-40); MANUAL DIFF FLAG SCAN; Mean Corpuscular HGB Conc 29.5 g/dl (31.0-36.0); Mean Corpuscular Hemoglobin 25.3 pg (27.0-33.0); Mean Corpuscular Volume 85.7 fL (80.0-98.0); Mean Platelet Volume 9.9 fL (9.4-12.4); Monocytes Absolute Auto 0.6 X10*3/uL (0.1-1.2); Monocytes Percent Auto 2.7 % (2-11); Neutrophils Absolute Auto 19.6 x10*3/uL (2.0-8.3); Neutrophils Percent Auto 90.1 % (45-73); Platelet Count 239 X10*3/uL (160-400); Red Blood Count 4.55 X10*6/uL (4.60-5.80); Red Cell Distribution Width 16.8 % (11.0-16.0); SCAN SMEAR FLAG 1; White Blood Count 21.8 X10*3/uL (4.8-10.8)
[2024-10-26 17:07] LABS: Calcium 10.1 mg/dL (8.4-10.2)
[2024-10-26 17:18] LABS: Influenza A PCR NEGATIVE (Negative); Influenza B PCR POSITIVE (Negative); Resp Syncy Virus RNA Qual PCR POSITIVE (Negative); SARS COV2 PCR INHOUSE NEGATIVE (Negative)
[2024-10-26 17:18] LABS: Troponin-I High Sensitivity 44.8 ng/L (<3.5-35.0)
[2024-10-26 17:19] LABS: B Type Natriuretic Peptide 238 pg/mL (<100); SLIDE REVIEW VERIFIED
[2024-10-26] MEDS: Acetaminophen 1,000 MG/100 ML PIGGYBACK 400 MG IV (17:23)
[2024-10-26] MEDS: cefEPime HCl/D5W 2 GM/50 ML PIGGYBACK IV (17:23)
[2024-10-26 17:26] LABS: Lactic Acid 3.7 mmol/L (0.5-2.0)
[2024-10-26] MEDS: 0.9 % Sodium Chloride 1,000 ML 999 ML IV ×2 (17:40→18:19)
[2024-10-26 17:49] LABS: Appearance Urine Cloudy; Color Urine Yellow; Glucose Urine UA Negative (Negative); Leukocyte Esterase Urine Negative (Negative); Nitrite Urine Negative (Negative); PH 7.5 (5.0-9.0); UMIC TRIGGER UACC YES; Urine Blood Small (1+) (Negative); Urine Ketones Trace mg/dL (Negative); Urine Protein >=1000 (4+) mg/dL (Neg-Trace)
[2024-10-26] MEDS: Ketamine HCl/NS 50 MG/5 ML SYRINGE 75 MG IVPUSH ×2 (18:00→18:19)
[2024-10-26 18:23] LABS: Bacteria Urine None Seen (None Seen); RBC Urine 0-2 /HPF (0-2); Squamous Epithelial Cell Urine 0-2 /HPF (0-2); WBC Urine 0-5 /HPF (0-5)
--- NOTE | 2024-10-26 18:24 | PHA.MEDREC ---
Addendum entered by Vanesa Ling RP 10/26/24 18:29: [facility] reviewed Original Note: Pharmacy Consult ? Medication Reconciliation Pharmacy has completed the medication reconciliation. Spoke to patient at bedside to confirm med list. states patient no longer takes Magnesium Oxide 400 mg. says patient is still taking Duloxetine 30 mg , however last fill date was 07/09/24 for 14 days.
[2024-10-26] MEDS: Norepinephrine Bitartrate/D5W 8 MG/250 ML PLAST..BAG 14.07 MG IVCONT (18:37)
[2024-10-26] MEDS: fentaNYL citrate/NS 1,000 MCG/100 ML PLAST..BAG 2.5 MCG IVCONT (18:40)
[2024-10-26 18:53] LABS: Reflex Lactate? Lactic Acid Added
[2024-10-26] MEDS: propofoL 200 MG/20 ML VIAL 50 MG IVPUSH (19:31)
[2024-10-26 19:45] LABS: ~Lactic Acid-LAB USE ONLY 1.7 mmol/L (0.5-2.0)
--- NOTE | 2024-10-26 19:50 | PM.CCHP ---
History of Present Illness Date of Service: 10/26/24 Attending physician on admission: Sergey Jacinto Chief Complaint: Sepsis/hypoxic respiratory failure with hypercarbia/influenza 69-year-old male with underlying history of CVA in 2020, type 2 diabetes, pulmonary hypertension, diastolic heart failure with preserved ejection fraction per records, no echo on file, hypertension, hyperlipidemia, obstructive sleep apnea on CPAP at night, gout, syncopal episodes, anxiety, chronic kidney disease stage 3, morbid obesity, prior hypoxic respiratory failure episodes due to influenza. Patient presented to the emergency room via EMS due to significant shortness of breath.? Patient had received nitroglycerin and nebulizers by EMS personnel subsequently intubated just prior to arriving to the emergency room.? Reportedly he had an elevated blood pressure at home.?On arrival to the emergency room, the patient had received nitroglycerin paste and drip, Lasix given the suspicion for CHF.? His ABG show pH of 7.29, pCO2 55, P O2 79 on 100% oxygen 10 of PEEP. ?His workup was significant for white count of 21.8, H and H of 11.5 and 39 respectively, platelets 239.? There was no electrolyte abnormality, creatinine 1.49 (baseline 1.28) initial lactic acid 3.7.? Troponin 44.8, BNP 238.? Influenza type B positive and positive RSV. ? Although he was not initially hypotensive he did drop his blood pressure likely due to sedation, he was febrile with a T-max of 101.8 degrees, tachycardic as high as 126 beats per minute. Chest x-ray showed bilateral diffuse infiltrates. ?Patient was treated with 2 g of cefepime, 2.2 L of IV fluid but no more fluid was administered due to concern of CHF. ?Subsequently patient was placed on propofol for sedation Levophed was started, patient was transferred to ICU for further care. Review of Systems Review of Systems: Yes Unobtainable due to mental status PMFSH Past Medical History Medical History Morbid obesity Screening PSA (prostate specific antigen) Elevated serum creatinine Right heart failure Leg pain FOREST (acute kidney injury) Leukocytosis LALI (obstructive sleep apnea) Hyperlipidemia HTN (hypertension) Diastolic heart failure Newly diagnosed diabetes Acute gout of left foot Chronic fatigue Pulmonary arterial hypertension Cerebrovascular accident (CVA) Family History Family History Father Blood clot in vein Mother Cancer Surgical History Surgical History Hx of shoulder surgery No pertinent past surgical history Social History Social History Household Members: Unknown / Unable to assess Housing: Unknown / Unable to assess Do you presently have visiting nurse or other home services: No Unable to assess alcohol history related to: Unable to respond Patient Tobacco Use Status: Never used Tobacco Years Smoked: nonsmoker Use of substances other than those prescribed or required for medical reasons: Unknown Substance Use Type: Unknown Last Used Substance: Unknown Currently Displaying Signs/Symptoms of Drug Intoxication Withdrawal: No Advance Directives: Yes Advance Directives on File: Yes Advance Directives Date on File: 12/03/20 Nutrition Risks: On aspiration precautions Poor oral hygiene: Yes service: No Current occupational status: unemployed Meds Allergies Allergy/AdvReac Type Severity Reaction Status Date / Time No Known Allergies Allergy Verified 11/04/23 14:23 Active Medications: Current Medications Ceftriaxone Sodium (Ceftriaxone Sodium 1 Gm Vial) 1 gm IVPUSH Q24H CARLOS Chlorhexidine Gluconate (Chlorhexidine Gluc Oral Rinse 15 Ml Mouthwash) 15 ml BUCCAL Q8H CARLOS Famotidine (Famotidine/Pf 20 Mg/2 Ml Vial) 20 mg IVPUSH DAILY CARLOS Heparin Sodium (Porcine) (Heparin Sodium,Porcine 5,000 Unit/Ml Vial) 5,000 unit SUBCUT Q8H CARLOS Propofol (Diprivan) 1,000 mg in 100 mls @ 0 mls/hr IVCONT .Q0M CARLOS; Protocol Last Titration: 10/26/24 17:47 Dose: 0 mcg/kg/min, 0 mls/hr Fentanyl (Sublimaze/Ns) 1,000 mcg in 100 mls @ 0 mls/hr IVCONT .Q0M CARLOS; Protocol Last Titration: 10/26/24 19:21 Dose: 75 mcg/hr, 7.5 mls/hr Norepinephrine Bitartrate (Levophed) 8 mg in 250 mls @ 0 mls/hr IVCONT .Q0M CARLOS; Protocol Last Admin: 10/26/24 18:37 Dose: 0.05 mcg/kg/min, 14.07 mls/hr Azithromycin 500 mg/ Sodium (Chloride) 250 mls @ 125 mls/hr IV Q24H CARLOS Insulin Human Lispro (Insulin Lispro 100 Unit/Ml 3 Ml Vial) 0 unit SUBCUT Q6H CARLOS; Protocol Naloxone HCl (Naloxone Hcl 0.4 Mg/Ml Vial) 0.2 mg IVPUSH Q2M PRN PRN Reason: Excessive sedation or RR < 8 Oseltamivir Phosphate (Oseltamivir Phosphate 75 Mg Capsule) 75 mg PO Q24H [facility] Stop: 10/30/24 20:01 Home Medications ?Medication ?Instructions ?Recorded ?Confirmed ?Last Taken ?Type aspirin 81 mg chewable tablet 81 mg PO DAILY 09/29/23 10/26/24 10/26/24 History cholecalciferol (vitamin D3) 25 25 mcg PO DAILY 10/26/24 10/26/24 10/26/24 History mcg (1,000 unit) tablet (Vitamin D3) Physical Exam Vital Signs: Vital Signs: Last Vital Signs Temp 100.4 F 10/26/24 18:51 Pulse 75 10/26/24 19:31 Resp 22 H 10/26/24 19:31 BP 147/72 H 10/26/24 19:31 Pulse Ox 97 10/26/24 19:31 O2 Del Method Mechanical Ventil ation 10/26/24 19:19 FiO2 90 10/26/24 17:54 BMI result Body Mass Index 47.5 Sepsis exam performed at 1999 General:? Morbidly obese, Intubated, sedated Skin:? Hyperpigmentation of the left tibial area consistent with stasis dermatitis, no open ulcers. ?There is an erythematous rash with a satellite base in the intertriginous areas of the armpits and lower abdomen consistent with Jessica.? No ?edema, erythema, clubbing or cyanosis.? No ulcers. HEENT:? Head is normocephalic, atraumatic, pupils equal round reactive to light. Buccal mucosa is dry.Neck is supple without lymphadenopathy. Cardiac:? Clear S1-S2, no murmurs rubs or gallops. Pulmonary:? Diminished lung sounds bilaterally with expiratory wheezing and bilateral coarseness with fine rhonchi at the bilateral bases. Abdomen:? Protuberant, positive bowel sounds in all 4 quadrants.? Soft Musculoskeletal:? Passive range of motion of upper and lower extremities at the major joints showed no cogwheeling, no crepitus.? There is no leg edema. Neurologic:? As above, No focal deficits noted. Vascular:? 2+ pulses upper and lower extremities distally. ?Less than 2nd capillary refill of the finger and toes bilaterally upper and lower extremities. Results Labs 10/27/24 05:42 10/27/24 12:03 Labs: Laboratory Results - last 24 hr 10/26/24 10/26/24 10/26/24 16:22 16:46 16:48 MCV 85.7 MCH 25.3 L MCHC 29.5 L RDW 16.8 H Plt Count 239 D MPV 9.9 Immature Gran % (Auto) 0.5 H Neut % (Auto) 90.1 H Lymph % (Auto) 5.6 L [place] % (Auto) 2.7 Eos % (Auto) 0.9 Baso % (Auto) 0.2 Lymph # (Auto) 1.2 [place] # (Auto) 0.6 Eos # (Auto) 0.2 Baso # (Auto) 0.1 Abs Immat Gran (auto) 0.11 H Absolute Neuts (auto) 19.6 H Absolute Nucleated RBC 0.000 Nucleated RBC % (auto) 0.0 Smear Tech's Comments VERIFIED Hold Purple Top PT 11.6 INR 1.0 O2 Saturation 93.0 ABG pH at Pt Temp 7.30 L ABG pCO2 at Pt Temp 55 H ABG pO2 at Pt Temp 79 L ABG HCO3 27 H ABG Base Excess (Actual) 0.3 Anion Gap 19 Estim Creat Clear Calc 67.7 Estimated GFR 47 Random Glucose 273 H Lactic Acid 3.7 H* Lactic Acid F/U @ 2Hr Calcium 10.6 H D 10.1 Magnesium 2.3 Total Bilirubin 0.3 Direct Bilirubin 0.1 AST 43 H ALT 14 Alkaline Phosphatase 123 H Troponin I High Sens 44.8 H D B-Natriuretic Peptide 238 H Total Protein 9.0 H Albumin 3.9 Lipase 25 Hold Yellow Top Urine Color Urine Appearance Urine pH Ur Specific [place] Urine Protein Urine Glucose (UA) Urine Ketones Urine Blood Urine Nitrite Ur Leukocyte Esterase Urine RBC Urine WBC Ur Squamous Epith Cells Urine Bacteria Hyaline Casts Influenza Type A (PCR) NEGATIVE Influenza Type B (PCR) POSITIVE A RSV RNA Qual (PCR) POSITIVE A SARS-CoV-2 RNA (RT-PCR) NEGATIVE 10/26/24 10/26/24 17:43 19:23 MCV MCH MCHC RDW Plt Count MPV Immature Gran % (Auto) Neut % (Auto) Lymph % (Auto) [place] % (Auto) Eos % (Auto) Baso % (Auto) Lymph # (Auto) [place] # (Auto) Eos # (Auto) Baso # (Auto) Abs Immat Gran (auto) Absolute Neuts (auto) Absolute Nucleated RBC Nucleated RBC % (auto) Smear Tech's Comments Hold Purple Top SEE NOTE PT INR O2 Saturation ABG pH at Pt Temp ABG pCO2 at Pt Temp ABG pO2 at Pt Temp ABG HCO3 ABG Base Excess (Actual) Anion Gap Estim Creat Clear Calc Estimated GFR Random Glucose Lactic Acid Lactic Acid F/U @ 2Hr 1.7 Calcium Magnesium Total Bilirubin Direct Bilirubin AST ALT Alkaline Phosphatase Troponin I High Sens B-Natriuretic Peptide Total Protein Albumin Lipase Hold Yellow Top See Note Urine Color Yellow Urine Appearance Cloudy Urine pH 7.5 Ur Specific [place] 1.020 Urine Protein >=1000 (4+) H Urine Glucose (UA) Negative Urine Ketones Trace Urine Blood Small (1+) H Urine Nitrite Negative Ur Leukocyte Esterase Negative Urine RBC 0-2 Urine WBC 0-5 Ur Squamous Epith Cells 0-2 Urine Bacteria None Seen Hyaline Casts 3-5 Influenza Type A (PCR) Influenza Type B (PCR) RSV RNA Qual (PCR) SARS-CoV-2 RNA (RT-PCR) Assessment and Plan (1) Acute sepsis: Status: Acute Plan ASSESSMENT : 1. Acute sepsis 2. Influenza and RSV pneumonia with possible superimposed bilateral community-acquired pneumonia 3. Acute hypoxic respiratory failure with hypercarbia 4. Acute kidney injury due to volume depletion and hypoperfusion 5. Acute respiratory acidosis 6. Improved Acute lactic acidosis due to the above 7. Reactive troponin elevation likely illness demand. 8. Proteinuria 9. Morbid obesity 10. Axillary and low abdominal skin candidiasis PLAN OF CARE: Patient was admitted to ICU, monitor vital signs, I's and O's, he received 2.2 L of IV fluids, and given the concern of existing underlying CHF as well as the concern that more fluid administration would throw him into further fluid overload, 30 cc per kilos were not administered. ?We will give him albumin at 133 cc/hour x2.? Continue with ventilatory support and wean off FiO2 slowly.? Sedation with propofol and blood pressure support with Levophed. ?OG tube placement for administration of renally adjusted Tamiflu.? DuoNebs scheduled and albuterol p.r.n. Sputum culture and Gram stain. Will cover him with Rocephin and Zithromax for possible superimposed community pneumonia.? Avoid nephrotoxins and recheck laboratories later on tonight and tomorrow. ?Transthoracic echo in the morning.? Insulin sliding scale q.6 hours.? Nystatin powder to intertriginous areas of the axilla and abdomen. GI PROPHYLAXIS: ?IV famotidine DVT PROPHYLAXIS: ?Heparin subcu q.8 hours A follow-up focused Sepsis PHYSICAL EXAM was performed at 0200 a.m. on 10/27/2024 General:? Intubated, sedated Skin:? Unchanged Cardiac:? Clear S1-S2, no murmurs rubs or gallops. Pulmonary:? Diminished lung sounds bilaterally with expiratory wheezing and bilateral coarseness with fine rhonchi at the bases. Neurologic:? As above, No focal deficits noted Vascular:? 2+ pulses upper and lower extremities distally. ?Less than 2nd capillary refill of the finger and toes bilaterally upper and lower extremities. Continue with the above-mentioned treatment. IV replacement of electrolytes will be ordered. Critical care time used for critical evaluation of this patient, diagnosis, treatment and coordination of care, review her records and documentation TOTAL CRITICAL CARE TIME? 120 MIN . discussion and coordination with consultants, completely separate from any procedures performed. Patient's care was discussed in detail with Dr. Jacinto who is aware of all the above as well as the plan of care for this patient.
[2024-10-26] MEDS: Azithromycin 500 MG in 0.9 % Sodium Chloride 250 ML 125 MG IV (21:21)
[2024-10-26] MEDS: Albumin Human 25 % 100 ML 133.33 ML IV ×2 (21:25→22:14)
[2024-10-26 22:17] LABS: ABG Refer to POC result
[2024-10-26 22:35] LABS: Hematocrit 34.7 % (42.0-52.0); Hemoglobin 10.3 g/dl (14.0-18.0); Mean Corpuscular HGB Conc 29.7 g/dl (31.0-36.0); Mean Corpuscular Hemoglobin 25.6 pg (27.0-33.0); Mean Corpuscular Volume 86.3 fL (80.0-98.0); Platelet Count 218 X10*3/uL (160-400); Red Blood Count 4.02 X10*6/uL (4.60-5.80); Red Cell Distribution Width 16.7 % (11.0-16.0); White Blood Count 23.4 X10*3/uL (4.8-10.8)
[2024-10-26 22:40] LABS: VBG Base Excess 6.4 mmol/L; VBG HCO3 31 mmol/L (22-26); VBG pCO2 44 mmHg; VBG pH 7.45 (7.32-7.43); VBG pO2 20 mmHg
[2024-10-26 22:41] LABS: Venous Blood Gas Refer to POC result
[2024-10-26] MEDS: Oseltamivir Phosphate 75 MG CAPSULE PO (22:49)
[2024-10-26] MEDS: Nystatin Powder 15 GM BOTTLE 1 APPL TOPICAL (22:49)
[2024-10-26 23:00] LABS: Alanine Aminotransferase < 6 U/L (0-40); Albumin Level 2.8 g/dL (3.5-5.0); Alkaline Phosphatase 66 U/L (39-117); Anion Gap 11 (12-20); Aspartate Amino Transferase 25 U/L (5-37); Bilirubin Total 0.3 mg/dL (0.0-1.0); Blood Urea Nitrogen 11 mg/dL (9-16); Calcium 7.2 mg/dL (8.4-10.2); Carbon Dioxide 20 mmol/L (22-29); Chloride 117 mmol/L (96-108); Estimated Glomerular Filt Rate > 60; Glucose Random 114 mg/dL (60-115); Potassium 2.9 mmol/L (3.3-5.1); Sodium 145 mmol/L (135-145); Total Protein 5.9 g/dL (6.5-8.0)
[2024-10-26 23:13] LABS: Magnesium 1.5 mg/dL (1.6-2.6); Phosphorus 1.9 mg/dL (2.7-4.5)
[2024-10-26] MEDS: Potassium Chloride Packet 20 MEQ PACKET 40 MEQ PO (23:17)
[2024-10-26 23:22] LABS: Band Neutrophils Percent 16 % (3-5); Lymphocytes Absolute Manual 1.2 X10*3/uL (1.2-4.9); Lymphocytes Percent Manual 5 % (20-40); Monocytes Absolute Manual 1.4 X10*3/uL (0.1-1.2); Monocytes Percent Manual 6 % (2-11); Neutrophils Absolute Manual 20.8 X10*3/uL (2.0-8.3); Neutrophils Percent Manual 73 % (45-73); RBC Morphology NOTED; Tear Drop Cells 1+ (0-2) /OIF
[2024-10-26 23:23] LABS: Hypochromasia 1+ (5-14) /OIF; Ovalocytes 1+ (5-14) /OIF; Platelet Estimate NORMAL (NORMAL); Platelet Morphology Comment NORMAL
[2024-10-26] MEDS: Acetaminophen Oral Liquid 650 MG/20.3 ML SOLUTION 975 MG PO (23:23)
[2024-10-26] MEDS: Albumin Human 25 % 100 ML IV (23:50)
[2024-10-26] MEDS: Albuterol/Iprat 2.5/0.5MG 3 ML AMPUL.NEB INHALE (23:50)
[2024-10-26] MEDS: Magnesium Sulfate/H2O 2 GM/50 ML PIGGYBACK IV (23:50)
[2024-10-26] MEDS: Potassium Phosphate/NS 15 MMOL/250 ML PLAST..BAG 62.5 MMOL IV (23:57)
[2024-10-27] VITALS (44 sets, daily range): BP systolic 94–175; BP diastolic 41–104; PULSE 44–109; RESP 18–44; TEMP 35–38.7; O2SAT 86–97; BMI 48.1
[2024-10-27] MEDS: Calcium Gluconate/NaCl,Iso-Osm 2 GM/100 ML PLAST..BAG IV
[2024-10-27] MEDS: 0.9 % Sodium Chloride Flush 3 ML SYRINGE IVFLUSH ×4 (00:06→23:31)
[2024-10-27 00:21] LABS: Glucose, Whole Blood 157 mg/dL (60-115)
[2024-10-27] MEDS: propofoL 1,000 MG/100 ML VIAL 32.66 MG IVCONT ×4 (00:57→08:30)
[2024-10-27] MEDS: Albumin Human 25 % 100 ML IV (00:57)
[2024-10-27] MEDS: Chlorhexidine Gluc Oral Rinse 15 ML MOUTHWASH BUCCAL ×2 (02:20→08:10)
[2024-10-27] MEDS: Heparin Sodium,Porcine 5,000 UNIT/ML VIAL 5000 UNIT SUBCUT ×3 (02:20→18:35)
[2024-10-27] MEDS: Potassium Phosphate/NS 15 MMOL/250 ML PLAST..BAG 62.5 MMOL IV (03:44)
[2024-10-27] MEDS: Albuterol/Iprat 2.5/0.5MG 3 ML AMPUL.NEB INHALE ×3 (05:23→20:41)
[2024-10-27 05:50] LABS: VBG Base Excess 8.6 mmol/L; VBG HCO3 32 mmol/L (22-26); VBG pCO2 39 mmHg; VBG pH 7.51 (7.32-7.43); VBG pO2 59 mmHg
--- NOTE | 2024-10-27 05:58 | HO.SKINPHOTO ---
Location: Posterior left upper thigh Category: MASD Present on admission Wound consult placed
[2024-10-27 06:05] LABS: Glucose, Whole Blood 159 mg/dL (60-115)
[2024-10-27 06:05] LABS: MANUAL DIFF FLAG NO
[2024-10-27 06:12] LABS: Basophils Absolute Auto 0.1 X10*3/uL (0.0-0.2); Basophils Percent Auto 0.5 % (0-2); Eosinophils Absolute Auto 0.1 X10*3/uL (0.0-0.4); Eosinophils Percent Auto 0.4 % (0-4); Hematocrit 29.2 % (42.0-52.0); Hemoglobin 8.6 g/dl (14.0-18.0); Imm Gran Pct Auto 0.9 % (0.0-0.4); Lymphocytes Absolute Auto 1.9 X10*3/uL (1.2-4.9); Lymphocytes Percent Auto 8.3 % (20-40); Mean Corpuscular HGB Conc 29.5 g/dl (31.0-36.0); Mean Corpuscular Hemoglobin 25.1 pg (27.0-33.0); Mean Corpuscular Volume 85.4 fL (80.0-98.0); Mean Platelet Volume 10.8 fL (9.4-12.4); Monocytes Absolute Auto 1.2 X10*3/uL (0.1-1.2); Monocytes Percent Auto 5.6 % (2-11); Neutrophils Absolute Auto 18.8 x10*3/uL (2.0-8.3); Neutrophils Percent Auto 84.3 % (45-73); Platelet Count 201 X10*3/uL (160-400); Red Blood Count 3.42 X10*6/uL (4.60-5.80); Red Cell Distribution Width 16.9 % (11.0-16.0); White Blood Count 22.3 X10*3/uL (4.8-10.8)
[2024-10-27 06:16] LABS: Venous Blood Gas Refer to POC result
[2024-10-27 06:35] LABS: Alanine Aminotransferase 8 U/L (0-40); Alkaline Phosphatase 69 U/L (39-117); Anion Gap 14 (12-20); Aspartate Amino Transferase 28 U/L (5-37); Bilirubin Total 0.6 mg/dL (0.0-1.0); Blood Urea Nitrogen 15 mg/dL (9-16); Calcium 9.8 mg/dL (8.4-10.2); Carbon Dioxide 28 mmol/L (22-29); Chloride 108 mmol/L (96-108); Creatinine Clr Calc Pharmacy 66.9; Estimated Glomerular Filt Rate 46; Glucose Random 153 mg/dL (60-115); Magnesium 2.2 mg/dL (1.6-2.6); Phosphorus 3.7 mg/dL (2.7-4.5); Potassium 3.7 mmol/L (3.3-5.1); Sodium 146 mmol/L (135-145); Total Protein 7.3 g/dL (6.5-8.0)
[2024-10-27] MEDS: Dextrose 5 % and Lactated Ring 1,000 ML 100 ML IVCONT (08:05)
[2024-10-27] MEDS: Famotidine/PF 20 MG/2 ML VIAL IVPUSH (08:10)
[2024-10-27] MEDS: cefTRIAXone sodium 1 GM VIAL IVPUSH (08:10)
[2024-10-27] MEDS: Nystatin Powder 15 GM BOTTLE 1 APPL TOPICAL ×2 (08:10→21:01)
--- NOTE | 2024-10-27 10:43 | MHC.CLN ---
PT MAY REQUIRE TF FOR NUTRITION SUPPORT R/T PROLONGED NPO CURRENTLY NPO DISCUSSED AT ROUNDS WITH MD IF TF NEEDED; RECOMMEND PROMOTE AT MAX GOAL RATE 45ML/HR WITH 240ML FREE WATER FLUSHES Q 6 HRS TO PROVIDE 1080KCALS (1727KCALS WITH SEDATION; 23KCALS/KG BASED ON IBW), 67.5G PROTEIN, 1866ML TOTAL WATER FROM FORMULA AND FLUSHES (25ML/KG) MONITOR TOLERANCE AND LYTES SEE ALSO FULL CLINICAL NUTRITION ASSESSMENT
--- NOTE | 2024-10-27 11:09 | HO.WOUND ---
Wound Consult: Initial 69yr old male admitted to [facility] on 10/26/24 - See progress notes and H&P for detailed history.? Wound consult placed for Buttock and skin folds.? Patient is intubated at this time. Left Ischium and Left Inner Thigh Etiology: ??MASD Present on Admission Wound Bed: dark red purple - blanchable tissue - evidence of friction and moisture - scattered areas of full and partial thickness tissue loss Drainage / Odor: none noted at this time Edges: ? irregular Cass wound: MASD - ? No Induration, Fluctuance or Warmth noted Goals of Treatment: ? Triad to act as barrier to moisture and friction Coccyx Etiology: Stage 2 Pressure Injury ??Present on Admission Measurements: 2cm x 0.3cm x 0.2cm Wound Bed: red moist wound bed Drainage / Odor: none noted Edges: ? macerated and linear Cass wound: ?MASD - red pink blanchable tissue - evidence of friction and desquamation noted No Induration, Fluctuance or Warmth noted Pain: intubated Goals of Treatment: ? Triad to act as barrier and allow for moist wound healing Skin folds assessed for MASD - no clear indication on skin clinical presentation for fungal dermatitis however significant yeast odor noted. Nystatin already in place - may continue with treatment in effort to ride skin of fungal spores given odor. Interdry should be used to translocate moisture out of deep skin folds given his body habitus. The patients body habitus also does not accommodate sacral foam dressing if use this would likely trap moisture and lead to further skin break down. Wedges in use, ICU specialty REBECCA mattress in use and Q2hr tusn along with heel protector boots in use. Recommendations: 1. Turn and Reposition every 2 hours and as needed for patient comfort.? Use pillows or wedges to support off loading positions. 2. Off Load all bony prominences with use of pillows and heel boots if needed.? Apply Preventative foams where needed. ? 3. Monitor for incontinence and moisture control, use barrier creams when needed for prevention and treatment. 4. Provide adequate and supplemental nutrition.? 5. Continue low air loss mattress. 6. When applicable maintain blood glucose levels per Providers order. 7. Skin Folds - Tuck Interdry AG Sheet into skin fold to wick and translocate moisture away from skin fold.? Be sure to leave at least 2 inch of fabric exposed outside of skin fold.? Change after 5 days or when soiled. Apply antifungal power to assist with moisture management.? Be sure to dust of excess powder to prevent caking on skin and in folds. Apply per provider orders. 8. Coccyx, sacrum and Bilateral Ischiuma and Inner Thighs - Off Load Pressure with Q2 hr turns and use of pillows - Cleanse with PH balance spray or wipes, pat dry. ?Apply thin layer of Triad to wound bed - only pat and dab no scrub and rub when soiling occurs. Reapply thin layer PRN after each episode of incontinence. Re-consult wound care Nurse for wound deterioration or wound changes.
[2024-10-27 11:17] LABS: Glucose, Whole Blood 112 mg/dL (60-115)
--- NOTE | 2024-10-27 11:35 | PM.CCPN ---
Subjective Subjective Date of Service: 10/27/24 Interval History: 69-year-old gentleman with underlying history diastolic heart failure pulmonary artery hypertension, LALI on CPAP, hypertension, CVA in 2019, diabetes mellitus, CKD admitted on 10/26/2024 with acute hypoxic respiratory failure secondary to RSV/influenza pneumonia requiring intubation and ventilatory support. Patient started on empiric antibiotics and antivirals and admitted to intensive care unit. Patient extubated uneventfully on 10/27/2024. No events overnight. Critical Care Time (minutes): 60 Physical Exam Vital Signs: Vital Signs: Last Vital Signs Temp 100.6 F H 10/27/24 11:00 Pulse 91 10/27/24 11:07 Resp 22 H 10/27/24 11:07 BP 121/66 10/27/24 11:04 Pulse Ox 94 10/27/24 11:00 O2 Del Method Oxymask 10/27/24 11:00 O2 Flow Rate 6 10/27/24 11:00 FiO2 35 10/27/24 10:50 BMI result Body Mass Index 48.1 Const: General: no acute distress, alert and awake Nutritional Appearance: obese Eyes: Sclerae: sclerae normal EOM: EOMs intact bilaterally Neck: Neck: Yes no lymphadenopathy, Yes trachea midline and Yes supple Resp: Effort & Inspection: normal respiratory effort and no respiratory distress Auscultation: crackles (Bilateral) Cardio: Rate: regular rate Rhythm: regular rhythm Heart sounds: no gallops, no murmurs and no rubs GI: Palpation (GI): Soft to palpation and Other GI palpation findings present ( Nontender) Auscultation: normal bowel sounds Extrem: General: No clubbing, No cyanosis and Yes edema (1+ bilateral) Objective Data Labs 10/27/24 05:42 10/27/24 05:42 Labs: Laboratory Results - last 24 hr 10/26/24 10/26/24 10/26/24 16:22 16:46 16:48 WBC 21.8 H RBC 4.55 L Hgb 11.5 L Hct 39.0 L MCV 85.7 MCH 25.3 L MCHC 29.5 L RDW 16.8 H Plt Count 239 D MPV 9.9 Immature Gran % (Auto) 0.5 H Neut % (Auto) 90.1 H Lymph % (Auto) 5.6 L [place] % (Auto) 2.7 Eos % (Auto) 0.9 Baso % (Auto) 0.2 Lymph # (Auto) 1.2 [place] # (Auto) 0.6 Eos # (Auto) 0.2 Baso # (Auto) 0.1 Abs Immat Gran (auto) 0.11 H Absolute Neuts (auto) 19.6 H Absolute Nucleated RBC 0.000 Nucleated RBC % (auto) 0.0 Neutrophils % (Manual) Band Neutrophils % Lymphocytes % (Manual) Monocytes % (Manual) Abs Neuts (Manual) Lymphocytes # (Manual) Monocytes # (Manual) Platelet Estimate Plt Morphology Comment RBC Morphology Hypochromasia Tear Drop Cells Ovalocytes Smear Tech's Comments VERIFIED Hold Purple Top PT 11.6 INR 1.0 O2 Saturation 93.0 ABG pH at Pt Temp 7.30 L ABG pCO2 at Pt Temp 55 H ABG pO2 at Pt Temp 79 L ABG HCO3 27 H ABG Base Excess (Actual) 0.3 VBG pH VBG pCO2 VBG pO2 VBG HCO3 VBG O2 Saturation VBG Base Excess Sodium 145 Potassium 3.6 Chloride 103 Carbon Dioxide 27 Anion Gap 19 BUN 14 Creatinine 1.49 H Estim Creat Clear Calc 67.7 Estimated GFR 47 POC Glucose Random Glucose 273 H Lactic Acid 3.7 H* Lactic Acid F/U @ 2Hr Calcium 10.6 H D 10.1 Phosphorus Magnesium 2.3 Total Bilirubin 0.3 Direct Bilirubin 0.1 AST 43 H ALT 14 Alkaline Phosphatase 123 H Troponin I High Sens 44.8 H D B-Natriuretic Peptide 238 H Total Protein 9.0 H Albumin 3.9 Lipase 25 Hold Yellow Top Urine Color Urine Appearance Urine pH Ur Specific [place] Urine Protein Urine Glucose (UA) Urine Ketones Urine Blood Urine Nitrite Ur Leukocyte Esterase Urine RBC Urine WBC Ur Squamous Epith Cells Urine Bacteria Hyaline Casts Influenza Type A (PCR) NEGATIVE Influenza Type B (PCR) POSITIVE A RSV RNA Qual (PCR) POSITIVE A SARS-CoV-2 RNA (RT-PCR) NEGATIVE 10/26/24 10/26/24 10/26/24 17:43 19:23 22:30 WBC 23.4 H RBC 4.02 L Hgb 10.3 L Hct 34.7 L MCV 86.3 MCH 25.6 L MCHC 29.7 L RDW 16.7 H Plt Count 218 MPV 10.0 Immature Gran % (Auto) Cancelled Neut % (Auto) Cancelled Lymph % (Auto) Cancelled [place] % (Auto) Cancelled Eos % (Auto) Cancelled Baso % (Auto) Cancelled Lymph # (Auto) Cancelled [place] # (Auto) Cancelled Eos # (Auto) Cancelled Baso # (Auto) Cancelled Abs Immat Gran (auto) Cancelled Absolute Neuts (auto) Cancelled Absolute Nucleated RBC 0.000 Nucleated RBC % (auto) 0.0 Neutrophils % (Manual) 73 Band Neutrophils % 16 H Lymphocytes % (Manual) 5 L Monocytes % (Manual) 6 Abs Neuts (Manual) 20.8 H Lymphocytes # (Manual) 1.2 Monocytes # (Manual) 1.4 H Platelet Estimate NORMAL Plt Morphology Comment NORMAL RBC Morphology NOTED Hypochromasia 1+ (5-14) Tear Drop Cells 1+ (0-2) Ovalocytes 1+ (5-14) Smear Tech's Comments Hold Purple Top SEE NOTE PT INR O2 Saturation ABG pH at Pt Temp ABG pCO2 at Pt Temp ABG pO2 at Pt Temp ABG HCO3 ABG Base Excess (Actual) VBG pH VBG pCO2 VBG pO2 VBG HCO3 VBG O2 Saturation VBG Base Excess Sodium 145 Potassium 2.9 L* Chloride 117 H Carbon Dioxide 20 L Anion Gap 11 L BUN 11 Creatinine 1.07 Estim Creat Clear Calc 95.0 Estimated GFR > 60 POC Glucose Random Glucose 114 Lactic Acid Lactic Acid F/U @ 2Hr 1.7 Calcium 7.2 L D Phosphorus 1.9 L Magnesium 1.5 L Total Bilirubin 0.3 Direct Bilirubin AST 25 ALT < 6 Alkaline Phosphatase 66 Troponin I High Sens B-Natriuretic Peptide Total Protein 5.9 L Albumin 2.8 L Lipase Hold Yellow Top See Note Urine Color Yellow Urine Appearance Cloudy Urine pH 7.5 Ur Specific [place] 1.020 Urine Protein >=1000 (4+) H Urine Glucose (UA) Negative Urine Ketones Trace Urine Blood Small (1+) H Urine Nitrite Negative Ur Leukocyte Esterase Negative Urine RBC 0-2 Urine WBC 0-5 Ur Squamous Epith Cells 0-2 Urine Bacteria None Seen Hyaline Casts 3-5 Influenza Type A (PCR) Influenza Type B (PCR) RSV RNA Qual (PCR) SARS-CoV-2 RNA (RT-PCR) 10/26/24 10/27/24 10/27/24 22:32 00:14 05:38 WBC RBC Hgb Hct MCV MCH MCHC RDW Plt Count MPV Immature Gran % (Auto) Neut % (Auto) Lymph % (Auto) [place] % (Auto) Eos % (Auto) Baso % (Auto) Lymph # (Auto) [place] # (Auto) Eos # (Auto) Baso # (Auto) Abs Immat Gran (auto) Absolute Neuts (auto) Absolute Nucleated RBC Nucleated RBC % (auto) Neutrophils % (Manual) Band Neutrophils % Lymphocytes % (Manual) Monocytes % (Manual) Abs Neuts (Manual) Lymphocytes # (Manual) Monocytes # (Manual) Platelet Estimate Plt Morphology Comment RBC Morphology Hypochromasia Tear Drop Cells Ovalocytes Smear Tech's Comments Hold Purple Top PT INR O2 Saturation ABG pH at Pt Temp ABG pCO2 at Pt Temp ABG pO2 at Pt Temp ABG HCO3 ABG Base Excess (Actual) VBG pH 7.45 H 7.51 H VBG pCO2 44 39 VBG pO2 20 59 VBG HCO3 31 H 32 H VBG O2 Saturation 32.0 90.0 VBG Base Excess 6.4 8.6 Sodium Potassium Chloride Carbon Dioxide Anion Gap BUN Creatinine Estim Creat Clear Calc Estimated GFR POC Glucose 157 H Random Glucose Lactic Acid Lactic Acid F/U @ 2Hr Calcium Phosphorus Magnesium Total Bilirubin Direct Bilirubin AST ALT Alkaline Phosphatase Troponin I High Sens B-Natriuretic Peptide Total Protein Albumin Lipase Hold Yellow Top Urine Color Urine Appearance Urine pH Ur Specific [place] Urine Protein Urine Glucose (UA) Urine Ketones Urine Blood Urine Nitrite Ur Leukocyte Esterase Urine RBC Urine WBC Ur Squamous Epith Cells Urine Bacteria Hyaline Casts Influenza Type A (PCR) Influenza Type B (PCR) RSV RNA Qual (PCR) SARS-CoV-2 RNA (RT-PCR) 10/27/24 10/27/24 10/27/24 05:42 05:56 11:12 WBC 22.3 H RBC 3.42 L Hgb 8.6 L Hct 29.2 L MCV 85.4 MCH 25.1 L MCHC 29.5 L RDW 16.9 H Plt Count 201 MPV 10.8 Immature Gran % (Auto) 0.9 H Neut % (Auto) 84.3 H Lymph % (Auto) 8.3 L [place] % (Auto) 5.6 Eos % (Auto) 0.4 Baso % (Auto) 0.5 Lymph # (Auto) 1.9 [place] # (Auto) 1.2 Eos # (Auto) 0.1 Baso # (Auto) 0.1 Abs Immat Gran (auto) 0.20 H Absolute Neuts (auto) 18.8 H Absolute Nucleated RBC 0.000 Nucleated RBC % (auto) 0.0 Neutrophils % (Manual) Band Neutrophils % Lymphocytes % (Manual) Monocytes % (Manual) Abs Neuts (Manual) Lymphocytes # (Manual) Monocytes # (Manual) Platelet Estimate Plt Morphology Comment RBC Morphology Hypochromasia Tear Drop Cells Ovalocytes Smear Tech's Comments Hold Purple Top PT INR O2 Saturation ABG pH at Pt Temp ABG pCO2 at Pt Temp ABG pO2 at Pt Temp ABG HCO3 ABG Base Excess (Actual) VBG pH VBG pCO2 VBG pO2 VBG HCO3 VBG O2 Saturation VBG Base Excess Sodium 146 H Potassium 3.7 D Chloride 108 Carbon Dioxide 28 Anion Gap 14 BUN 15 Creatinine 1.52 H Estim Creat Clear Calc 66.9 Estimated GFR 46 POC Glucose 159 H 112 Random Glucose 153 H Lactic Acid Lactic Acid F/U @ 2Hr Calcium 9.8 D Phosphorus 3.7 Magnesium 2.2 Total Bilirubin 0.6 Direct Bilirubin AST 28 ALT 8 Alkaline Phosphatase 69 Troponin I High Sens B-Natriuretic Peptide Total Protein 7.3 Albumin 4.0 Lipase Hold Yellow Top Urine Color Urine Appearance Urine pH Ur Specific [place] Urine Protein Urine Glucose (UA) Urine Ketones Urine Blood Urine Nitrite Ur Leukocyte Esterase Urine RBC Urine WBC Ur Squamous Epith Cells Urine Bacteria Hyaline Casts Influenza Type A (PCR) Influenza Type B (PCR) RSV RNA Qual (PCR) SARS-CoV-2 RNA (RT-PCR) Progress Note: A&P Assessment and plan (1) Influenza: Status: Acute (2) Respiratory syncytial virus (RSV): Status: Acute (3) Pneumonia: Status: Acute (4) Acute hypoxic respiratory failure: Status: Acute (5) LALI (obstructive sleep apnea): Status: Acute (6) Morbid obesity: Status: Acute (7) Diastolic heart failure: Status: Acute Plan Assessment: 69-year-old gentleman with underlying obesity LALI diastolic heart failure and diabetes mellitus admitted with acute hypoxic respiratory failure secondary to RSV/influenza pneumonia initially requiring ventilatory support. Plan: Neuro: No acute issues. Cardiac: No acute issues. Underlying chronic diastolic congestive heart failure, right heart failure, and hypotension. Pulmonary: Acute hypoxic respiratory failure secondary to viral (RSV/influenza) pneumonia initially requiring ventilatory support, extubated 10/27/2024. Continue to titrate off supplemental oxygen as tolerated. Underlying LALI. Renal: Acute kidney injury, non-oliguric, continue to monitor renal indices and urine output. Endo: No acute issues. GI: No acute issues. ID: Viral pneumonia, continue empiric antivirals and also empiric antibiotic coverage for possible bacterial superinfection. Heme/Onc: No acute issues. Psych: No acute issues. Miscellaneous: No acute issues. Prophylaxis: Heparin Diet: Pending swallow evaluation Critical care time spent: 60 minutes Quality Stroke Does the patient have a stroke diagnosis?: No VTE Prior VTE?: No VTE Risk Level:: Medical - moderate - high VTE Device Contraindication: Treatment Not Indicated VTE Drug Contraindication: N/A - Med Ordered
--- NOTE | 2024-10-27 12:56 | PC.RT ---
Pt had increased WOB, SATs stable at 92% on 6L oxy mask, but RR >30. Pt complaining of SOB. Pt placed on HFNC 50L/45% for flow. Pt condition improved. Will continue to monitor.
--- NOTE | 2024-10-27 12:59 | P.CDIM_ITS ---
PROVIDER RESPONSE TEXT: To clarify, the appropriate diagnosis supported by the clinical indicators: Acute QUERY TEXT: PHYSICIAN'S DOCUMENTATION REQUEST Date of Query: 10/27/2024 12:11 PM EST Patient Name: Chuck Card Admit Date: 10/26/2024 Dear Sergey Jacinto MD, A review of the medical record indicates additional documentation may be needed. Please review below and update the documentation accordingly. Clinical Indicators: LA 3.7 H&P - Improved lactic acidosis. IV fluids Clarify which of the following accurately represents the acuity of the lactic acidosis: Possible options might include: Acute Chronic Other (explain) Clinically unable to determine (explain) Thank you, Desiree Grace, CCS, CDIS Use of terms such as suspected, likely, concern for, or probable (associated with a specific diagnosi s that is being evaluated, monitored, or treated as if it exists) are acceptable and can be coded in the inpatient se tting, when documented at the time of discharge. Please use your independent medical judgment in providing your response. THIS QUERY IS PART OF THE PERMANENT MEDICAL RECORD
[2024-10-27 13:05] LABS: Alanine Aminotransferase < 6 U/L (0-40); Anion Gap 14 (12-20); Aspartate Amino Transferase 25 U/L (5-37); Bilirubin Total 0.5 mg/dL (0.0-1.0); Blood Urea Nitrogen 17 mg/dL (9-16); Calcium 9.7 mg/dL (8.4-10.2); Carbon Dioxide 30 mmol/L (22-29); Chloride 106 mmol/L (96-108); Creatinine Clr Calc Pharmacy 68.7; Estimated Glomerular Filt Rate 47; Glucose Random 118 mg/dL (60-115); Potassium 3.6 mmol/L (3.3-5.1); Sodium 146 mmol/L (135-145); Total Protein 7.8 g/dL (6.5-8.0)
[2024-10-27 14:11] LABS: Alkaline Phosphatase 73 U/L (39-117)
[2024-10-27] MEDS: Albuterol Sulfate (0.083%) 2.5 MG/3 ML VIAL.NEB INHALE (14:52)
--- NOTE | 2024-10-27 15:59 | MHC.CM.PN ---
Pt intubated and unable to participate in CM assessment: message left for HCP/spouse to assist w/d/c planning needs. IMM in chart, HCP on file
[2024-10-27] MEDS: fentaNYL citrate/PF 100 MCG/2 ML VIAL 50 MCG IVPUSH (16:51)
[2024-10-27 18:31] LABS: Glucose, Whole Blood 119 mg/dL (60-115)
[2024-10-27] MEDS: Azithromycin 500 MG in 0.9 % Sodium Chloride 250 ML 125 MG IV (19:31)
[2024-10-27 21:18] LABS: VBG Base Excess 5.6 mmol/L; VBG HCO3 31 mmol/L (22-26); VBG pCO2 51 mmHg; VBG pH 7.39 (7.32-7.43); VBG pO2 80 mmHg
[2024-10-27 21:37] LABS: Alanine Aminotransferase 6 U/L (0-40); Albumin Level 4.1 g/dL (3.5-5.0); Alkaline Phosphatase 78 U/L (39-117); Anion Gap 19 (12-20); Aspartate Amino Transferase 28 U/L (5-37); Bilirubin Total 0.6 mg/dL (0.0-1.0); Blood Urea Nitrogen 17 mg/dL (9-16); Calcium 9.4 mg/dL (8.4-10.2); Carbon Dioxide 25 mmol/L (22-29); Chloride 108 mmol/L (96-108); Creatinine Clr Calc Pharmacy 82.7; Estimated Glomerular Filt Rate 58; Glucose Random 135 mg/dL (60-115); Sodium 148 mmol/L (135-145); Total Protein 8.1 g/dL (6.5-8.0)
[2024-10-27 22:19] LABS: Venous Blood Gas Refer to POC result
[2024-10-27 23:31] LABS: Glucose, Whole Blood 127 mg/dL (60-115)
[2024-10-28] VITALS (37 sets, daily range): BP systolic 113–194; BP diastolic 55–119; PULSE 54–108; RESP 12–44; TEMP 37.6–38.6; O2SAT 88–97; BMI 46.8
[2024-10-28] MEDS: Labetalol HCL 100 MG/20 ML VIAL 20 MG IVPUSH ×3 (00:40→21:47)
[2024-10-28] MEDS: Albuterol/Iprat 2.5/0.5MG 3 ML AMPUL.NEB INHALE ×5 (00:42→23:45)
[2024-10-28] MEDS: Heparin Sodium,Porcine 5,000 UNIT/ML VIAL 5000 UNIT SUBCUT ×3 (02:40→17:53)
[2024-10-28 04:48] LABS: VBG Base Excess 7.8 mmol/L; VBG HCO3 31 mmol/L (22-26); VBG pCO2 41 mmHg; VBG pH 7.48 (7.32-7.43); VBG pO2 69 mmHg
[2024-10-28 04:53] LABS: Venous Blood Gas Refer to POC result
[2024-10-28 05:00] LABS: MANUAL DIFF FLAG NO
[2024-10-28 05:07] LABS: Basophils Percent Auto 0.3 % (0-2); Eosinophils Percent Auto 0.3 % (0-4); Hematocrit 32.5 % (42.0-52.0); Hemoglobin 9.6 g/dl (14.0-18.0); Imm Gran Abs Auto 0.11 X10*3/uL (0.00-0.03); Imm Gran Pct Auto 0.8 % (0.0-0.4); Lymphocytes Absolute Auto 1.4 X10*3/uL (1.2-4.9); Lymphocytes Percent Auto 10.2 % (20-40); Mean Corpuscular HGB Conc 29.5 g/dl (31.0-36.0); Mean Corpuscular Volume 84.6 fL (80.0-98.0); Mean Platelet Volume 10.1 fL (9.4-12.4); Monocytes Absolute Auto 0.5 X10*3/uL (0.1-1.2); Monocytes Percent Auto 3.9 % (2-11); Neutrophils Absolute Auto 11.5 x10*3/uL (2.0-8.3); Neutrophils Percent Auto 84.5 % (45-73); Platelet Count 195 X10*3/uL (160-400); Red Blood Count 3.84 X10*6/uL (4.60-5.80); Red Cell Distribution Width 17.2 % (11.0-16.0); White Blood Count 13.6 X10*3/uL (4.8-10.8)
[2024-10-28 05:27] LABS: Alanine Aminotransferase < 6 U/L (0-40); Albumin Level 3.8 g/dL (3.5-5.0); Alkaline Phosphatase 78 U/L (39-117); Anion Gap 14 (12-20); Aspartate Amino Transferase 31 U/L (5-37); Bilirubin Total 0.6 mg/dL (0.0-1.0); Blood Urea Nitrogen 18 mg/dL (9-16); Calcium 9.6 mg/dL (8.4-10.2); Carbon Dioxide 28 mmol/L (22-29); Chloride 110 mmol/L (96-108); Creatinine Clr Calc Pharmacy 76.4; Estimated Glomerular Filt Rate 53; Glucose Random 126 mg/dL (60-115); Magnesium 2.2 mg/dL (1.6-2.6); Phosphorus 2.7 mg/dL (2.7-4.5); Potassium 3.9 mmol/L (3.3-5.1); Sodium 148 mmol/L (135-145)
[2024-10-28] MEDS: Dextrose 5 % 1,000 ML 80 ML IVCONT (06:41)
[2024-10-28] MEDS: cefTRIAXone sodium 1 GM VIAL IVPUSH (08:52)
[2024-10-28] MEDS: 0.9 % Sodium Chloride Flush 3 ML SYRINGE IVFLUSH ×3 (08:52→22:13)
[2024-10-28] MEDS: Nystatin Powder 15 GM BOTTLE 1 APPL TOPICAL ×2 (08:53→20:12)
--- NOTE | 2024-10-28 09:42 | P.PNCC_ITS ---
Subjective Subjective Date of Service: 10/28/24 Interval History: 69-year-old gentleman with underlying history diastolic heart failure pulmonary artery hypertension, LALI on CPAP, hypertension, CVA in 2019, diabetes mellitus, CKD admitted on 10/26/2024 with acute hypoxic respiratory failure secondary to RSV/influenza pneumonia requiring intubation and ventilatory support. Patient started on empiric antibiotics and antivirals and admitted to intensive care unit. Patient extubated uneventfully on 10/27/2024. No events overnight. To require on/off BiPAP support. Critical Care Time (minutes): 0 Physical Exam 2 Vital Signs: Vital Signs: Last Vital Signs Temp 99.9 F 10/28/24 09:00 Pulse 81 10/28/24 09:00 Resp 35 H 10/28/24 09:00 BP 142/78 H 10/28/24 09:00 Pulse Ox 95 10/28/24 09:00 O2 Del Method BiPAP 10/28/24 09:00 O2 Flow Rate 50 10/27/24 22:52 FiO2 40 10/28/24 09:00 BMI result Body Mass Index 46.8 Const: General: no acute distress, alert and awake Nutritional Appearance: obese HEENT: Head: Yes atraumatic Eyes: General: appearance normal, both eyes and all related structures S clerae: sclerae normal EOM: EOMs intact bilaterally Neck: Neck: Yes supple Lymphatic: no lymphadenopathy noted Resp: Effort & Inspection: normal respiratory effort and no use of accessory muscles Auscultation: crackles bilateral Cardio: Rate: regular rate Rhythm: abnormal rhythm irregularly irregular Heart sounds: no gallops, no murmurs and no rubs Skin: General skin exam: other ( warm) Extrem: General: No clubbing, No cyanosis and Yes edema (Trace bilateral) Objective Data Labs 10/28/24 04:41 10/28/24 04:41 Labs: Laboratory Results - last 24 hr 10/27/24 10/27/24 10/27/24 11:12 12:03 18:27 WBC RBC Hgb Hct MCV MCH MCHC RDW Plt Count MPV Immature Gran % (Auto) Neut % (Auto) Lymph % (Auto) [place] % (Auto) Eos % (Auto) Baso % (Auto) Lymph # (Auto) [place] # (Auto) Eos # (Auto) Baso # (Auto) Abs Immat Gran (auto) Absolute Neuts (auto) Absolute Nucleated RBC Nucleated RBC % (auto) VBG pH VBG pCO2 VBG pO2 VBG HCO3 VBG O2 Saturation VBG Base Excess Sodium 146 H Potassium 3.6 Chloride 106 Carbon Dioxide 30 H Anion Gap 14 BUN 17 H Creatinine 1.48 H Estim Creat Clear Calc 68.7 Estimated GFR 47 POC Glucose 112 119 H Random Glucose 118 H Calcium 9.7 Phosphorus Magnesium Total Bilirubin 0.5 AST 25 ALT < 6 Alkaline Phosphatase 73 Total Protein 7.8 Albumin 4.0 10/27/24 10/27/24 10/27/24 21:06 21:08 23:21 WBC RBC Hgb Hct MCV MCH MCHC RDW Plt Count MPV Immature Gran % (Auto) Neut % (Auto) Lymph % (Auto) [place] % (Auto) Eos % (Auto) Baso % (Auto) Lymph # (Auto) [place] # (Auto) Eos # (Auto) Baso # (Auto) Abs Immat Gran (auto) Absolute Neuts (auto) Absolute Nucleated RBC Nucleated RBC % (auto) VBG pH 7.39 VBG pCO2 51 VBG pO2 80 VBG HCO3 31 H VBG O2 Saturation 95.0 VBG Base Excess 5.6 Sodium 148 H Potassium 4.0 Chloride 108 Carbon Dioxide 25 Anion Gap 19 BUN 17 H Creatinine 1.23 Estim Creat Clear Calc 82.7 Estimated GFR 58 POC Glucose 127 H Random Glucose 135 H Calcium 9.4 Phosphorus Magnesium Total Bilirubin 0.6 AST 28 ALT 6 Alkaline Phosphatase 78 Total Protein 8.1 H Albumin 4.1 10/28/24 10/28/24 04:36 04:41 WBC 13.6 H RBC 3.84 L Hgb 9.6 L Hct 32.5 L MCV 84.6 MCH 25.0 L MCHC 29.5 L RDW 17.2 H Plt Count 195 MPV 10.1 Immature Gran % (Auto) 0.8 H Neut % (Auto) 84.5 H Lymph % (Auto) 10.2 L [place] % (Auto) 3.9 Eos % (Auto) 0.3 Baso % (Auto) 0.3 Lymph # (Auto) 1.4 [place] # (Auto) 0.5 Eos # (Auto) 0.0 Baso # (Auto) 0.0 Abs Immat Gran (auto) 0.11 H Absolute Neuts (auto) 11.5 H Absolute Nucleated RBC 0.000 Nucleated RBC % (auto) 0.0 VBG pH 7.48 H VBG pCO2 41 VBG pO2 69 VBG HCO3 31 H VBG O2 Saturation 93.0 VBG Base Excess 7.8 Sodium 148 H Potassium 3.9 Chloride 110 H Carbon Dioxide 28 Anion Gap 14 BUN 18 H Creatinine 1.33 Estim Creat Clear Calc 76.4 Estimated GFR 53 POC Glucose Random Glucose 126 H Calcium 9.6 Phosphorus 2.7 Magnesium 2.2 Total Bilirubin 0.6 AST 31 ALT < 6 Alkaline Phosphatase 78 Total Protein 8.0 Albumin 3.8 Microbiology Microbiology Results: Microbiology 10/27/24 03:26 Sputum - Suctioned Gram Stain - Final 10/27/24 03:26 Sputum - Suctioned Sputum Culture - Preliminary Culture in progress. 10/26/24 16:48 Blood - Venous Blood Culture - Preliminary No growth after 24 hours. 10/26/24 16:22 Blood - Venous Blood Culture - Preliminary No growth after 24 hours. Progress Note: A&P Assessment and plan (1) Anxiety: Status: Acute (2) Diastolic heart failure: Status: Acute (3) Right heart failure: Status: Acute (4) Morbid obesity: Status: Acute (5) Acute kidney injury superimposed on CKD: Status: Acute (6) Influenza: Status: Acute (7) Respiratory syncytial virus (RSV): Status: Acute (8) Pneumonia: Status: Acute (9) Acute hypoxic respiratory failure: Status: Acute (10) LALI (obstructive sleep apnea): Status: Acute Plan Assessment: 69-year-old gentleman with underlying obesity LALI diastolic heart failure and diabetes mellitus admitted with acute hypoxic respiratory failure secondary to RSV/influenza pneumonia initially requiring ventilatory support. Plan: Neuro: No acute issues. Cardiac: No acute issues. Underlying chronic diastolic congestive heart failure, right heart failure, and hypertension. Pulmonary: Acute hypoxic respiratory failure secondary to viral (RSV/influenza) pneumonia initially requiring ventilatory support, extubated 10/27/2024. Continue to titrate off supplemental oxygen as tolerated. Underlying LALI. Renal: Acute kidney injury, non-oliguric, continue to monitor renal indices and urine output. Endo: No acute issues. GI: No acute issues. ID: Viral pneumonia, continue empiric antivirals and also empiric antibiotic coverage for possible bacterial superinfection. Heme/Onc: No acute issues. Psych: No acute issues. Miscellaneous: No acute issues. Prophylaxis: Heparin Diet: Pending swallow evaluation Quality Stroke Does the patient have a stroke diagnosis?: No VTE Prior VTE?: No VTE Risk Level:: Medical - moderate - high VTE Device Contraindication: Treatment Not Indicated VTE Drug Contraindication: N/A - Med Ordered
[2024-10-28] MEDS: Furosemide 40 MG/4 ML VIAL IVPUSH (10:29)
[2024-10-28 12:17] LABS: Glucose, Whole Blood 139 mg/dL (60-115)
[2024-10-28] MEDS: LORazepam 2 MG/ML VIAL 0.5 MG IVPUSH (15:23)
[2024-10-28 18:01] LABS: Glucose, Whole Blood 133 mg/dL (60-115)
[2024-10-28] MEDS: Azithromycin 500 MG in 0.9 % Sodium Chloride 250 ML 125 MG IV (20:09)
[2024-10-28] MEDS: Oseltamivir Phosphate 75 MG CAPSULE PO (20:10)
[2024-10-28] MEDS: lisinopriL 20 MG TABLET PO ×2 (20:10→22:12)
[2024-10-28 20:22] LABS: Alanine Aminotransferase 10 U/L (0-40); Albumin Level 3.8 g/dL (3.5-5.0); Alkaline Phosphatase 77 U/L (39-117); Anion Gap 14 (12-20); Aspartate Amino Transferase 31 U/L (5-37); Bilirubin Total 0.8 mg/dL (0.0-1.0); Blood Urea Nitrogen 21 mg/dL (9-16); Calcium 9.1 mg/dL (8.4-10.2); Carbon Dioxide 30 mmol/L (22-29); Chloride 107 mmol/L (96-108); Creatinine Clr Calc Pharmacy 94.4; Estimated Glomerular Filt Rate > 60; Glucose Random 124 mg/dL (60-115); Potassium 3.9 mmol/L (3.3-5.1); Sodium 147 mmol/L (135-145); Total Protein 8.3 g/dL (6.5-8.0)
[2024-10-28] MEDS: Acetaminophen Oral Liquid 650 MG/20.3 ML SOLUTION 975 MG PO (23:26)
[2024-10-28 23:44] LABS: Glucose, Whole Blood 152 mg/dL (60-115)
[2024-10-29] VITALS (32 sets, daily range): BP systolic 102–186; BP diastolic 54–109; PULSE 48–87; RESP 18–39; TEMP 37.3–38.4; O2SAT 90–100; BMI 46.1
--- NOTE | 2024-10-29 | ECG_ITS ---
Test Reason : a flutter Blood Pressure : */* mmHG Vent. Rate : 63 BPM Atrial Rate : * BPM P-R Int : * ms QRS Dur : 110 ms QT Int : 444 ms P-R-T Axes : * 36 177 degrees QTcB Int : [address] & T wave abnormality, consider anterolateral ischemia Abnormal ECG When compared with ECG of 26-Oct-2024 16:38, Atrial fibrillation has replaced Sinus rhythm Vent. rate has decreased by 64 bpm T wave inversion now evident in Anterior leads Referred By: Leoncio Bergman Electronically Signed By: JET NOVOA MD
[2024-10-29] MEDS: Heparin Sodium,Porcine 5,000 UNIT/ML VIAL 5000 UNIT SUBCUT ×3 (02:32→18:18)
[2024-10-29 02:39] LABS: Basophils Absolute Auto 0.1 X10*3/uL (0.0-0.2); Basophils Percent Auto 0.4 % (0-2); Eosinophils Percent Auto 0.1 % (0-4); Hematocrit 33.3 % (42.0-52.0); Hemoglobin 9.7 g/dl (14.0-18.0); Imm Gran Abs Auto 0.21 X10*3/uL (0.00-0.03); Imm Gran Pct Auto 1.6 % (0.0-0.4); Lymphocytes Absolute Auto 1.1 X10*3/uL (1.2-4.9); Lymphocytes Percent Auto 8.5 % (20-40); MANUAL DIFF FLAG NO; Mean Corpuscular HGB Conc 29.1 g/dl (31.0-36.0); Mean Corpuscular Volume 85.8 fL (80.0-98.0); Mean Platelet Volume 9.9 fL (9.4-12.4); Monocytes Absolute Auto 0.6 X10*3/uL (0.1-1.2); Monocytes Percent Auto 4.1 % (2-11); NRBC Pct Auto 0.1 /100WBC (0.0-0.2); Neutrophils Absolute Auto 11.5 x10*3/uL (2.0-8.3); Neutrophils Percent Auto 85.3 % (45-73); Platelet Count 230 X10*3/uL (160-400); Red Blood Count 3.88 X10*6/uL (4.60-5.80); Red Cell Distribution Width 17.2 % (11.0-16.0); White Blood Count 13.5 X10*3/uL (4.8-10.8)
[2024-10-29 02:56] LABS: Albumin Level 3.7 g/dL (3.5-5.0); Anion Gap 15 (12-20); Blood Urea Nitrogen 28 mg/dL (9-16); Calcium 9.5 mg/dL (8.4-10.2); Carbon Dioxide 30 mmol/L (22-29); Chloride 108 mmol/L (96-108); Creatinine Clr Calc Pharmacy 62.1; Estimated Glomerular Filt Rate 43; Glucose Random 125 mg/dL (60-115); Magnesium 2.3 mg/dL (1.6-2.6); Phosphorus 2.7 mg/dL (2.7-4.5); Potassium 3.9 mmol/L (3.3-5.1); Sodium 149 mmol/L (135-145)
[2024-10-29] MEDS: Dextrose 5 % and Lactated Ring 1,000 ML 250 ML IVCONT (03:58)
[2024-10-29] MEDS: DEXTROSE 5% IVCONT (04:00)
[2024-10-29] MEDS: LACTATED RING IVCONT (04:00)
[2024-10-29 04:59] LABS: VBG Base Excess 11.2 mmol/L; VBG HCO3 36 mmol/L (22-26); VBG pCO2 50 mmHg; VBG pH 7.46 (7.32-7.43); VBG pO2 74 mmHg
[2024-10-29 05:02] LABS: Venous Blood Gas Refer to POC result
[2024-10-29] MEDS: Albuterol/Iprat 2.5/0.5MG 3 ML AMPUL.NEB INHALE ×4 (05:36→23:15)
[2024-10-29 05:54] LABS: Glucose, Whole Blood 162 mg/dL (60-115)
[2024-10-29 06:24] LABS: INTERNATIONAL NORM RATIO 1.1 (0.9-1.1); Prothrombin Time 13.3 SEC (10.9-12.4)
[2024-10-29 06:26] LABS: Partial Thromboplastin Time 27.5 SEC (26.0-36.8)
[2024-10-29] MEDS: Insulin Lispro 100 UNIT/ML 3 ML VIAL SUBCUT (06:27)
[2024-10-29 06:38] LABS: Alanine Aminotransferase 248 U/L (0-40); Albumin Level 3.5 g/dL (3.5-5.0); Alkaline Phosphatase 69 U/L (39-117); Anion Gap 13 (12-20); Aspartate Amino Transferase 415 U/L (5-37); Bilirubin Total 0.6 mg/dL (0.0-1.0); Blood Urea Nitrogen 30 mg/dL (9-16); Calcium 8.9 mg/dL (8.4-10.2); Carbon Dioxide 31 mmol/L (22-29); Chloride 109 mmol/L (96-108); Creatinine Clr Calc Pharmacy 60.5; Estimated Glomerular Filt Rate 42; Glucose Random 159 mg/dL (60-115); Potassium 3.8 mmol/L (3.3-5.1); Sodium 149 mmol/L (135-145); Total Protein 7.7 g/dL (6.5-8.0)
[2024-10-29 06:53] LABS: TSH reflex Free T4 0.22 uIU/mL (0.32-4.0)
[2024-10-29 07:34] LABS: Free T4 (Free Thyroxine) 0.93 ng/dL (0.71-1.85)
[2024-10-29] MEDS: 0.9 % Sodium Chloride Flush 3 ML SYRINGE IVFLUSH ×3 (08:13→19:58)
[2024-10-29] MEDS: cefTRIAXone sodium 1 GM VIAL IVPUSH (08:59)
[2024-10-29] MEDS: Nystatin Powder 15 GM BOTTLE 1 APPL TOPICAL ×2 (08:59→19:59)
[2024-10-29 09:47] LABS: Troponin-I High Sensitivity 448.2 ng/L (<3.5-35.0)
[2024-10-29] MEDS: cloNIDine 0.1 MG PATCH.TDWK TRANSDERMA (10:07)
--- NOTE | 2024-10-29 10:48 | P.PNCC_ITS ---
Subjective Subjective Date of Service: 10/29/24 Interval History: 69-year-old gentleman with underlying history diastolic heart failure pulmonary artery hypertension, LALI on CPAP, hypertension, CVA in 2019, diabetes mellitus, CKD admitted on 10/26/2024 with acute hypoxic respiratory failure secondary to RSV/influenza pneumonia requiring intubation and ventilatory support. Patient started on empiric antibiotics and antivirals and admitted to intensive care unit. Patient extubated uneventfully on 10/27/2024. No events overnight. Continues to requiring nocturnal BiPAP and is able to tolerate facemask during daytime. Critical Care Time (minutes): 0 Physical Exam 2 Vital Signs: Vital Signs: Last Vital Signs Temp 99.5 F 10/29/24 10:00 Pulse 77 10/29/24 10:00 Resp 28 H 10/29/24 10:00 BP 175/94 H 10/29/24 10:00 Pulse Ox 97 10/29/24 10:00 O2 Del Method BiPAP 10/29/24 10:00 O2 Flow Rate 10 10/28/24 23:00 FiO2 40 10/29/24 10:00 BMI result Body Mass Index 46.1 Const: General: no acute distress, alert and awake Nutritional Appearance: obese Eyes: Sclerae: sclerae normal EOM: EOMs intact bilaterally Neck: Neck: Yes no lymphadenopathy, Yes trachea midline and Yes supple Resp: Effort & Inspection: normal respiratory effort and no respiratory distress Auscultation: crackles bilateral Cardio: Rate: regular rate Rhythm: regular rhythm Heart sounds: no gallops, no murmurs and no rubs GI: Palpation (GI): Soft to palpation and Other GI palpation findings present ( Nontender) Auscultation: normal bowel sounds Extrem: General: No clubbing, No cyanosis and Yes edema (Trace bilateral) Objective Data Labs 10/29/24 02:25 10/29/24 06:04 Labs: Laboratory Results - last 24 hr 10/28/24 10/28/24 10/28/24 12:10 17:55 19:59 WBC RBC Hgb Hct MCV MCH MCHC RDW Plt Count MPV Immature Gran % (Auto) Neut % (Auto) Lymph % (Auto) [place] % (Auto) Eos % (Auto) Baso % (Auto) Lymph # (Auto) [place] # (Auto) Eos # (Auto) Baso # (Auto) Abs Immat Gran (auto) Absolute Neuts (auto) Absolute Nucleated RBC Nucleated RBC % (auto) PT INR APTT VBG pH VBG pCO2 VBG pO2 VBG HCO3 VBG O2 Saturation VBG Base Excess Sodium 147 H Potassium 3.9 Chloride 107 Carbon Dioxide 30 H Anion Gap 14 BUN 21 H Creatinine 1.06 Estim Creat Clear Calc 94.4 Estimated GFR > 60 POC Glucose 139 H 133 H Random Glucose 124 H Calcium 9.1 Phosphorus Magnesium Total Bilirubin 0.8 AST 31 ALT 10 Alkaline Phosphatase 77 Troponin I High Sens Total Protein 8.3 H Albumin 3.8 TSH Free T4 10/28/24 10/29/24 10/29/24 23:37 02:25 04:48 WBC 13.5 H RBC 3.88 L Hgb 9.7 L Hct 33.3 L MCV 85.8 MCH 25.0 L MCHC 29.1 L RDW 17.2 H Plt Count 230 MPV 9.9 Immature Gran % (Auto) 1.6 H Neut % (Auto) 85.3 H Lymph % (Auto) 8.5 L [place] % (Auto) 4.1 Eos % (Auto) 0.1 Baso % (Auto) 0.4 Lymph # (Auto) 1.1 L [place] # (Auto) 0.6 Eos # (Auto) 0.0 Baso # (Auto) 0.1 Abs Immat Gran (auto) 0.21 H Absolute Neuts (auto) 11.5 H Absolute Nucleated RBC 0.020 H Nucleated RBC % (auto) 0.1 PT INR APTT VBG pH 7.46 H VBG pCO2 50 VBG pO2 74 VBG HCO3 36 H VBG O2 Saturation 93.0 VBG Base Excess 11.2 Sodium 149 H Potassium 3.9 Chloride 108 Carbon Dioxide 30 H Anion Gap 15 BUN 28 H Creatinine 1.61 H Estim Creat Clear Calc 62.1 Estimated GFR 43 POC Glucose 152 H Random Glucose 125 H Calcium 9.5 Phosphorus 2.7 Magnesium 2.3 Total Bilirubin AST ALT Alkaline Phosphatase Troponin I High Sens Total Protein Albumin 3.7 TSH Free T4 10/29/24 10/29/24 10/29/24 05:50 06:04 09:09 WBC RBC Hgb Hct MCV MCH MCHC RDW Plt Count MPV Immature Gran % (Auto) Neut % (Auto) Lymph % (Auto) [place] % (Auto) Eos % (Auto) Baso % (Auto) Lymph # (Auto) [place] # (Auto) Eos # (Auto) Baso # (Auto) Abs Immat Gran (auto) Absolute Neuts (auto) Absolute Nucleated RBC Nucleated RBC % (auto) PT 13.3 H INR 1.1 APTT 27.5 VBG pH VBG pCO2 VBG pO2 VBG HCO3 VBG O2 Saturation VBG Base Excess Sodium 149 H Potassium 3.8 Chloride 109 H Carbon Dioxide 31 H Anion Gap 13 BUN 30 H Creatinine 1.64 H Estim Creat Clear Calc 60.5 Estimated GFR 42 POC Glucose 162 H Random Glucose 159 H Calcium 8.9 D Phosphorus Magnesium Total Bilirubin 0.6 AST 415 H ALT 248 H Alkaline Phosphatase 69 Troponin I High Sens 509.0 H* D 448.2 H* Total Protein 7.7 Albumin 3.5 TSH 0.22 L Free T4 0.93 Microbiology Microbiology Results: Microbiology 10/27/24 03:26 Sputum - Suctioned Gram Stain - Final 10/27/24 03:26 Sputum - Suctioned Sputum Culture - Preliminary Staphylococcus aureus 10/26/24 16:48 Blood - Venous Blood Culture - Preliminary No growth after 48 hours. 10/26/24 16:22 Blood - Venous Blood Culture - Preliminary No growth after 48 hours. Progress Note: A&P Assessment and plan (1) Anxiety: Status: Acute (2) HTN (hypertension): Status: Acute (3) Diastolic heart failure: Status: Acute (4) Morbid obesity: Status: Acute (5) Acute kidney injury superimposed on CKD: Status: Acute (6) Influenza: Status: Acute (7) Respiratory syncytial virus (RSV): Status: Acute (8) Acute hypoxic respiratory failure: Status: Acute (9) LALI (obstructive sleep apnea): Status: Acute Plan Assessment: 69-year-old gentleman with underlying obesity LALI diastolic heart failure and diabetes mellitus admitted with acute hypoxic respiratory failure secondary to RSV/influenza pneumonia initially requiring ventilatory support. Plan: Neuro: No acute issues. Cardiac: No acute issues. Underlying chronic diastolic congestive heart failure, right heart failure, and hypertension. Pulmonary: Acute hypoxic respiratory failure secondary to viral (RSV/influenza) pneumonia initially requiring ventilatory support, extubated 10/27/2024. Continue to titrate off supplemental oxygen as tolerated. Underlying LALI. Renal: Acute kidney injury, non-oliguric, continue to monitor renal indices and urine output. Endo: No acute issues. GI: No acute issues. ID: Viral pneumonia, continue empiric antivirals and also empiric antibiotic coverage for possible bacterial superinfection. Heme/Onc: No acute issues. Psych: No acute issues. Miscellaneous: No acute issues. Prophylaxis: Heparin Diet: Diabetic Quality Stroke Does the patient have a stroke diagnosis?: No VTE Prior VTE?: No VTE Risk Level:: Medical - moderate - high VTE Device Contraindication: Treatment Not Indicated VTE Drug Contraindication: N/A - Med Ordered
[2024-10-29] MEDS: amLODIPine Besylate 10 MG TABLET PO (10:57)
[2024-10-29] MEDS: Aspirin 81 MG TAB.CHEW PO (10:57)
[2024-10-29 11:49] LABS: Glucose, Whole Blood 96 mg/dL (60-115)
[2024-10-29] MEDS: Nitroglycerin 2 % Oint 1 GM Packet 0.5 INCH TRANSDERMA ×2 (16:06→19:49)
[2024-10-29 17:33] LABS: Glucose, Whole Blood 113 mg/dL (60-115)
[2024-10-29] MEDS: Azithromycin 500 MG in 0.9 % Sodium Chloride 250 ML 125 MG IV (19:50)
[2024-10-29 23:52] LABS: Glucose, Whole Blood 95 mg/dL (60-115)
[2024-10-30] VITALS (29 sets, daily range): BP systolic 125–165; BP diastolic 57–98; PULSE 64–78; RESP 18–30; TEMP 37.2–37.6; O2SAT 90–96; BMI 48.8
[2024-10-30] MEDS: Heparin Sodium,Porcine 5,000 UNIT/ML VIAL 5000 UNIT SUBCUT ×3 (02:42→18:18)
[2024-10-30 04:32] LABS: VBG Base Excess 12.6 mmol/L; VBG HCO3 37 mmol/L (22-26); VBG pCO2 48 mmHg; VBG pH 7.49 (7.32-7.43); VBG pO2 29 mmHg
[2024-10-30 04:33] LABS: Venous Blood Gas Refer to POC result
[2024-10-30 04:49] LABS: MANUAL DIFF FLAG NO
[2024-10-30 04:50] LABS: Basophils Absolute Auto 0.1 X10*3/uL (0.0-0.2); Basophils Percent Auto 0.7 % (0-2); Eosinophils Absolute Auto 0.3 X10*3/uL (0.0-0.4); Eosinophils Percent Auto 2.2 % (0-4); Hematocrit 32.3 % (42.0-52.0); Hemoglobin 9.2 g/dl (14.0-18.0); Imm Gran Abs Auto 0.26 X10*3/uL (0.00-0.03); Imm Gran Pct Auto 2.3 % (0.0-0.4); Lymphocytes Absolute Auto 1.7 X10*3/uL (1.2-4.9); Mean Corpuscular HGB Conc 28.5 g/dl (31.0-36.0); Mean Corpuscular Volume 87.8 fL (80.0-98.0); Mean Platelet Volume 10.3 fL (9.4-12.4); Monocytes Absolute Auto 0.8 X10*3/uL (0.1-1.2); Monocytes Percent Auto 6.9 % (2-11); Neutrophils Absolute Auto 8.1 x10*3/uL (2.0-8.3); Neutrophils Percent Auto 72.9 % (45-73); Platelet Count 266 X10*3/uL (160-400); Red Blood Count 3.68 X10*6/uL (4.60-5.80); Red Cell Distribution Width 16.9 % (11.0-16.0); White Blood Count 11.2 X10*3/uL (4.8-10.8)
[2024-10-30 05:16] LABS: Alanine Aminotransferase 175 U/L (0-40); Albumin Level 3.3 g/dL (3.5-5.0); Alkaline Phosphatase 71 U/L (39-117); Anion Gap 15 (12-20); Aspartate Amino Transferase 150 U/L (5-37); Bilirubin Total 0.5 mg/dL (0.0-1.0); Blood Urea Nitrogen 27 mg/dL (9-16); Carbon Dioxide 31 mmol/L (22-29); Chloride 105 mmol/L (96-108); Creatinine Clr Calc Pharmacy 86.2; Estimated Glomerular Filt Rate > 60; Glucose Random 90 mg/dL (60-115); Magnesium 2.2 mg/dL (1.6-2.6); Phosphorus 2.6 mg/dL (2.7-4.5); Potassium 3.7 mmol/L (3.3-5.1); Sodium 147 mmol/L (135-145); Total Protein 7.6 g/dL (6.5-8.0)
[2024-10-30] MEDS: Albuterol/Iprat 2.5/0.5MG 3 ML AMPUL.NEB INHALE ×3 (05:35→20:46)
--- NOTE | 2024-10-30 07:00 | CA_ITS ---
Transthoracic Echocardiogram Patient (Last, First, Middle): Chuck Card, Gender: Male Date of : 1955 Age: 69 Procedure Date: 10/30/2024 Procedure Type: Transthoracic Echocardiogram Location: ICU Height: 177.8 cm Weight: 154.22 kg BSA: 2.62 m2 Heart Rate: bpm BP: 146 / 85 mmHg [employer] Chief: Referring MD: Leoncio COOL Symptoms: New Afib Study Quality: Fair ECG Rhythm: Sinus Conclusions: - The left ventricular systolic function is mildly decreased. The calculated ejection fraction is 51% by biplane method. - There is severely increased left ventricular wall thickness. - There is moderate calcification of the aortic valve. There is mild aortic valve stenosis. - There is moderate mitral annular calcification. Findings Left Ventricle Normal left ventricular cavity size. There is severely increased left ventricular wall thickness. The left ventricular systolic function is mildly decreased. The calculated ejection fraction is 51% by biplane method. There is no evidence of regional wall motion abnormalities. Evidence suggests grade I (mild) diastolic dysfunction. Right Ventricle Moderately increased right ventricular cavity size. There is normal right ventricular systolic function. Atria The left atrium is mildly dilated. The right atrium is normal in size. Aortic Valve There is moderate calcification of the aortic valve. There is mild aortic valve stenosis. There is no aortic valve regurgitation. Mitral Valve There is moderate mitral annular calcification. There is trace mitral valve regurgitation. There is no mitral valve stenosis. Pulmonic Valve The pulmonic valve is likely normal. Tricuspid Valve There is trace tricuspid valve regurgitation. There is no evidence of pulmonary hypertension. Great Vessels The asc aorta is normal in size. Venous The inferior vena cava is mildly dilated and collapses greater than 50% with inspiration. Pericardium/Pleural There is no evidence of pericardial effusion. Prior Study Comparison Changes noted compared to prior study dated: 04/08/2020. No evidence of pulmonary hypertension in the current study. Measurements 2D Linear Measurements IVSd: 1.53 0.6-0.9/0.6-1.0 cm LVIDd: 4.80 3.9-5.3/4.2-5.9 cm LVIDd Index: 1.83 2.4-3.2/2.2-3.1 cm/m2 LVIDs: 3.33 2.0-3.6 cm LVPWd: 1.57 0.7-1.1 cm Ao Root: 3.50 2.1-3.5 cm LA Diam: 5.00 2.7-3.8/3.0-4.0 cm LAIDs Index: 1.91 1.5-2.3 cm/m2 LV Mass: 397.74 67-162/88-224 g LV Mass Index: 151.81 43-95/49-115 g/m2 LVOT Diam: 2.50 3.0+(-)1.3 cm 2D Systolic Function EF 4C: 53.70 >55% EF 2C: 48.90 >55% EF BiP: 50.80 >55% Mitral Valve MV VTI: 0.36 MV Pk Srikanth: 1.45 MV Mn Srikanth: 0.80 MV Pk Grad: 8.00 MV Mn Grad: 3.00 MV Pk E: 0.78 MV PK A: 1.43 MV Decel Time: 169.00 E/A: 0.50 E'Lateral: 5.11 E'Medial: 3.37 E/E' Med: 23.20 E/E' Lat: 15.30 PHT: 49.00 MVA PHT: 4.49 MVA Continuity: 2.73 Decel [place]: 4.64 Aortic Valve AoV Pk Srikanth: 2.29 AoV Mn Srikanth: 1.73 AoV VTI: 0.43 AoV Pk Grad: 21.00 Aov Mn Grad: 13.00 [place] Cont.VTI: 2.31 LVOT LVOT Pk Srikanth: 0.99 LVOT Mn Srikanth: 0.66 LVOT VTI: 0.20 LVOT Pk Grad: 4.00 LVOT Mn Grad: 2.00 LVOT Diam: 2.50 LVOT Area: 4.91 Diastolic Function MV Pk E: 0.78 MV Pk A: 1.43 E/A: 0.50 E'Medial: 3.37 E/E' Med: 23.20 E' Laterial: 5.11 E/E' Lat: 15.30 Right Ventricle TAPSE (mm): 31.00 TVS' Srikanth: 16.00 Tricuspid Valve TR Pk Srikanth: 2.37 TR Pk Grad: 22.00 RA Press: 8.00 RVSP: 30.00 Great Vessels Aorta Ao Root-2D: 3.50 2.0-3.7 cm Ao Asc: 3.50 2.1-3.4 cm Pulmonary Valve PV Pk Srikanth: 1.16 Peak PV Grad: 5.00 Updated in Other Vendor System with Status of Final Yves Campbell MD electronically signed on 10/30/2024 1:24:14 PM with status of Final
[2024-10-30] MEDS: Oseltamivir Phosphate 75 MG CAPSULE PO ×2 (07:58→20:22)
[2024-10-30] MEDS: Sodium,Potassium Phosphates POWD.PACK 2 PACKET PO (07:58)
[2024-10-30] MEDS: Nitroglycerin 2 % Oint 1 GM Packet 0.5 INCH TRANSDERMA (07:59)
[2024-10-30] MEDS: Aspirin 81 MG TAB.CHEW PO (08:00)
[2024-10-30] MEDS: amLODIPine Besylate 10 MG TABLET PO (08:00)
[2024-10-30] MEDS: 0.9 % Sodium Chloride Flush 3 ML SYRINGE IVFLUSH ×2 (08:00→17:00)
[2024-10-30] MEDS: cefTRIAXone sodium 1 GM VIAL IVPUSH (08:01)
--- NOTE | 2024-10-30 08:19 | P.PNCC_ITS ---
Subjective Subjective Date of Service: 10/30/24 Critical Care Time (minutes): 60 Physical Exam 2 Vital Signs: Vital Signs: Last Vital Signs Temp 99.1 F 10/30/24 08:00 Pulse 78 10/30/24 08:00 Resp 21 H 10/30/24 08:00 BP 153/89 H 10/30/24 08:00 Pulse Ox 93 10/30/24 08:00 O2 Del Method BiPAP 10/30/24 08:00 O2 Flow Rate 8 10/29/24 22:00 FiO2 40 10/30/24 08:00 BMI result Body Mass Index 48.8 Const: General: cooperative, healthy appearing, comfortable, no acute distress, well developed, alert, awake and Physically active O rientation/consciousness: patient oriented x3 HEENT: Head: Yes normal to inspection, Yes normocephalic and Yes atraumatic Eyes: General: appearance normal, both eyes and all related structures Neck: Neck: Yes normal visual inspection, Yes full ROM, Yes no meningeal signs, Yes trachea midline and Yes supple Chest: Chest palpation & inspection: normal inspection of the chest Resp: Other: appreciable rhonchi; no appreciable rales, wheezing Effort & Inspection: normal respiratory effort Cardio: Rate: regular rate Rhythm: regular rhythm GI: Inspection: Yes normal to inspection, No Abdominal wall edema and No distended Palpation (GI): Soft to palpation, not firm, nontender, no guarding and not rigid Skin: General skin exam: no rashes or lesions noted Neuro: General: patient oriented x3, tone normal, moves all extremities, no meningeal signs and no focal motor deficits Extrem: General: Yes normal to inspection, Yes full ROM, Yes capillary refill normal and Yes no clubbing, cyanosis or edema Psych: Appearance: grossly normal Objective Data Labs 10/30/24 04:25 10/30/24 04:25 Labs: Laboratory Results - last 24 hr 10/29/24 10/29/24 10/29/24 09:09 11:42 17:29 WBC RBC Hgb Hct MCV MCH MCHC RDW Plt Count MPV Immature Gran % (Auto) Neut % (Auto) Lymph % (Auto) [place] % (Auto) Eos % (Auto) Baso % (Auto) Lymph # (Auto) [place] # (Auto) Eos # (Auto) Baso # (Auto) Abs Immat Gran (auto) Absolute Neuts (auto) Absolute Nucleated RBC Nucleated RBC % (auto) VBG pH VBG pCO2 VBG pO2 VBG HCO3 VBG O2 Saturation VBG Base Excess Sodium Potassium Chloride Carbon Dioxide Anion Gap BUN Creatinine Estim Creat Clear Calc Estimated GFR POC Glucose 96 113 Random Glucose Calcium Phosphorus Magnesium Total Bilirubin AST ALT Alkaline Phosphatase Troponin I High Sens 448.2 H* Total Protein Albumin 10/29/24 10/30/24 10/30/24 23:36 04:21 04:25 WBC 11.2 H RBC 3.68 L Hgb 9.2 L Hct 32.3 L MCV 87.8 MCH 25.0 L MCHC 28.5 L RDW 16.9 H Plt Count 266 MPV 10.3 Immature Gran % (Auto) 2.3 H Neut % (Auto) 72.9 Lymph % (Auto) 15.0 L [place] % (Auto) 6.9 Eos % (Auto) 2.2 Baso % (Auto) 0.7 Lymph # (Auto) 1.7 [place] # (Auto) 0.8 Eos # (Auto) 0.3 Baso # (Auto) 0.1 Abs Immat Gran (auto) 0.26 H Absolute Neuts (auto) 8.1 Absolute Nucleated RBC 0.000 Nucleated RBC % (auto) 0.0 VBG pH 7.49 H VBG pCO2 48 VBG pO2 29 VBG HCO3 37 H VBG O2 Saturation 40.0 VBG Base Excess 12.6 Sodium 147 H Potassium 3.7 Chloride 105 Carbon Dioxide 31 H Anion Gap 15 BUN 27 H Creatinine 1.19 Estim Creat Clear Calc 86.2 Estimated GFR > 60 POC Glucose 95 Random Glucose 90 Calcium 9.0 Phosphorus 2.6 L Magnesium 2.2 Total Bilirubin 0.5 AST 150 H ALT 175 H Alkaline Phosphatase 71 Troponin I High Sens Total Protein 7.6 Albumin 3.3 L Microbiology Microbiology Results: Microbiology 10/27/24 03:26 Sputum - Suctioned Gram Stain - Final 10/27/24 03:26 Sputum - Suctioned Sputum Culture - Preliminary Staphylococcus aureus 10/26/24 16:48 Blood - Venous Blood Culture - Preliminary No growth after 48 hours. 10/26/24 16:22 Blood - Venous Blood Culture - Preliminary No growth after 48 hours. Progress Note: A&P Assessment and plan (1) Acute hypoxic respiratory failure: Status: Acute (2) Pneumonia: Status: Acute (3) LALI (obstructive sleep apnea): Status: Acute Plan Patient is a 69 Y M w/ hypertension, diabetes mellitus, c/b HFpEF and pulmonary hypertension, CVA in 2019, obesity c/b LALI, presenting initially on 10/26 w/ acute hypoxic respiratory failure d/t influenza, RSV, intubated, extubated 10/27 N: no acute issues CV: no acute issues; hypertension, HFpEF, home regimen R: acute hypoxic respiratory failure d/t influenza, RSV, intubated 10/26, extubated 10/27, oxymask AM, LALI on BiPAP PM GI: no acute issues : no acute issues; CKD H: no acute issues; chemical DVT prophylaxis w/ heparin SQ ID: influenza, RSV pneumonia, tamiflu, empiric antibiotics for possible bacterial superinfection E: diabetes mellitus; to monitor hypo-/hyper-glycemia P: no acute issues Quality Stroke Does the patient have a stroke diagnosis?: No VTE Prior VTE?: No VTE Risk Level:: Medical - moderate - high VTE Device Contraindication: N/A - Device Ordered VTE Drug Contraindication: N/A - Med Ordered
[2024-10-30] MEDS: Albumin Human 25 % 50 ML 100 ML IV (08:41)
[2024-10-30] MEDS: Furosemide 40 MG TABLET PO (08:42)
[2024-10-30] MEDS: lisinopriL 40 MG TABLET PO (08:42)
[2024-10-30] MEDS: Nystatin Powder 15 GM BOTTLE 1 APPL TOPICAL ×2 (08:43→20:25)
--- NOTE | 2024-10-30 09:19 | MHC.CLN ---
F/U PT EXTUBATED10/27 DIET ADVANCED TO 2200DM RECOMMEND ADDING ENSURE MAX BID TO PROMOTE WOUND HEALING SUPP TO PROVIDE 300KCALS, 60G PROTEIN MONITOR PO INTAKE AND ENCOURAGE SUPPLEMENTS
[2024-10-30] MEDS: Acetaminophen 325 MG TABLET 975 MG PO (10:40)
[2024-10-30 12:21] LABS: Glucose, Whole Blood 96 mg/dL (60-115)
--- NOTE | 2024-10-30 13:42 | MHC.CM.PN ---
Pt continues care in ICU: on high flow O2 with continued dyspnea: call placed again to spouse Lenka: no answer or ability to leave a message. Call placed to next contact, Nakul: message left requesting callback. Unsure of pt's d/c plan or if he had services or DME. CM to follow
--- NOTE | 2024-10-30 15:49 | MHC.CM.PN ---
Pt intubated and unable to participate in CM assessment: Information obtained from pt's son Nakul who states pt resides with spouse, is independent with ADL's, does not drive or have DME/services but has used [facility] in the past (unknown agency). HCP on file and verified w/Nakul: IMM in chart: Will refer pt to [facility] in anticipation of a return to home - family to transport.
[2024-10-30 18:01] LABS: Glucose, Whole Blood 91 mg/dL (60-115)
[2024-10-30] MEDS: Atorvastatin Calcium 80 MG TABLET PO (20:22)
[2024-10-30] MEDS: Azithromycin 500 MG in 0.9 % Sodium Chloride 250 ML 125 MG IV (20:24)
[2024-10-31] VITALS (24 sets, daily range): BP systolic 116–170; BP diastolic 59–91; PULSE 67–80; RESP 14–29; TEMP 36.8–37.1; O2SAT 93–97; BMI 48.7
[2024-10-31 00:03] LABS: Glucose, Whole Blood 83 mg/dL (60-115)
[2024-10-31] MEDS: Albuterol/Iprat 2.5/0.5MG 3 ML AMPUL.NEB INHALE ×3 (00:38→11:25)
[2024-10-31] MEDS: Heparin Sodium,Porcine 5,000 UNIT/ML VIAL 5000 UNIT SUBCUT (01:37)
[2024-10-31] MEDS: diphenhydrAMINE HCL 50 MG/ML VIAL 25 MG IVPUSH (01:39)
[2024-10-31 05:20] LABS: VBG Base Excess 12.5 mmol/L; VBG HCO3 38 mmol/L (22-26); VBG pCO2 52 mmHg; VBG pH 7.46 (7.32-7.43); VBG pO2 33 mmHg
[2024-10-31 05:39] LABS: Venous Blood Gas Refer to POC result
[2024-10-31 05:42] LABS: MANUAL DIFF FLAG NO
[2024-10-31 05:43] LABS: Basophils Absolute Auto 0.1 X10*3/uL (0.0-0.2); Basophils Percent Auto 0.7 % (0-2); Eosinophils Absolute Auto 0.3 X10*3/uL (0.0-0.4); Eosinophils Percent Auto 2.9 % (0-4); Hematocrit 34.6 % (42.0-52.0); Hemoglobin 9.9 g/dl (14.0-18.0); Imm Gran Abs Auto 0.36 X10*3/uL (0.00-0.03); Imm Gran Pct Auto 3.7 % (0.0-0.4); Lymphocytes Absolute Auto 1.6 X10*3/uL (1.2-4.9); Lymphocytes Percent Auto 16.5 % (20-40); Mean Corpuscular HGB Conc 28.6 g/dl (31.0-36.0); Mean Corpuscular Hemoglobin 24.6 pg (27.0-33.0); Mean Corpuscular Volume 86.1 fL (80.0-98.0); Mean Platelet Volume 9.9 fL (9.4-12.4); Monocytes Absolute Auto 0.8 X10*3/uL (0.1-1.2); Monocytes Percent Auto 7.7 % (2-11); NRBC Pct Auto 0.2 /100WBC (0.0-0.2); Neutrophils Absolute Auto 6.7 x10*3/uL (2.0-8.3); Neutrophils Percent Auto 68.5 % (45-73); Platelet Count 264 X10*3/uL (160-400); Red Blood Count 4.02 X10*6/uL (4.60-5.80); Red Cell Distribution Width 16.6 % (11.0-16.0); White Blood Count 9.9 X10*3/uL (4.8-10.8)
[2024-10-31 05:59] LABS: Glucose, Whole Blood 87 mg/dL (60-115)
[2024-10-31 06:05] LABS: Anion Gap 13 (12-20); Blood Urea Nitrogen 22 mg/dL (9-16); Calcium 8.9 mg/dL (8.4-10.2); Carbon Dioxide 33 mmol/L (22-29); Chloride 101 mmol/L (96-108); Creatinine Clr Calc Pharmacy 94.8; Estimated Glomerular Filt Rate > 60; Glucose Random 83 mg/dL (60-115); Phosphorus 2.7 mg/dL (2.7-4.5); Potassium 3.3 mmol/L (3.3-5.1); Sodium 144 mmol/L (135-145)
--- NOTE | 2024-10-31 09:14 | PM.CCPN ---
Subjective Subjective Date of Service: 10/31/24 Interval History: no significant overnight events Critical Care Time (minutes): 0 Physical Exam Vital Signs: Vital Signs: Last Vital Signs Temp 98.2 F 10/31/24 08:00 Pulse 76 10/31/24 08:00 Resp 20 10/31/24 08:00 BP 134/59 L 10/31/24 08:00 Pulse Ox 94 10/31/24 08:00 O2 Del Method Oxymask 10/31/24 08:00 O2 Flow Rate 5 10/31/24 08:00 FiO2 40 10/31/24 07:00 BMI result Body Mass Index 48.7 Const: General: cooperative, healthy appearing, comfortable, no acute distress, well developed, alert, awake and Physically active Orientation/consciousness: patient oriented x3 HEENT: Head: Yes normal to inspection, Yes normocephalic and Yes atraumatic Eyes: General: appearance normal, both eyes and all related structures Neck: Neck: Yes normal visual inspection, Yes full ROM, Yes no meningeal signs, Yes trachea midline and Yes supple Chest: Chest palpation & inspection: normal inspection of the chest Resp: Other: some appreciable rhonchi; no appreciable rales, wheezing Effort & Inspection: normal respiratory effort Cardio: Rate: regular rate Rhythm: regular rhythm GI: Inspection: Yes normal to inspection, No Abdominal wall edema and No distended Palpation (GI): Soft to palpation, not firm, nontender, no guarding and not rigid Skin: General skin exam: no rashes or lesions noted Neuro: General: patient oriented x3, tone normal, moves all extremities, no meningeal signs and no focal motor deficits Extrem: General: Yes normal to inspection, Yes full ROM, Yes capillary refill normal and Yes no clubbing, cyanosis or edema Psych: Appearance: grossly normal Objective Data Labs 10/31/24 05:15 10/31/24 05:15 Labs: Laboratory Results - last 24 hr 10/30/24 10/30/24 10/30/24 12:15 17:57 23:55 WBC RBC Hgb Hct MCV MCH MCHC RDW Plt Count MPV Immature Gran % (Auto) Neut % (Auto) Lymph % (Auto) [place] % (Auto) Eos % (Auto) Baso % (Auto) Lymph # (Auto) [place] # (Auto) Eos # (Auto) Baso # (Auto) Abs Immat Gran (auto) Absolute Neuts (auto) Absolute Nucleated RBC Nucleated RBC % (auto) VBG pH VBG pCO2 VBG pO2 VBG HCO3 VBG O2 Saturation VBG Base Excess Sodium Potassium Chloride Carbon Dioxide Anion Gap BUN Creatinine Estim Creat Clear Calc Estimated GFR POC Glucose 96 91 83 Random Glucose Calcium Phosphorus Magnesium 10/31/24 10/31/24 10/31/24 05:09 05:15 05:53 WBC 9.9 RBC 4.02 L Hgb 9.9 L Hct 34.6 L MCV 86.1 MCH 24.6 L MCHC 28.6 L RDW 16.6 H Plt Count 264 MPV 9.9 Immature Gran % (Auto) 3.7 H Neut % (Auto) 68.5 Lymph % (Auto) 16.5 L [place] % (Auto) 7.7 Eos % (Auto) 2.9 Baso % (Auto) 0.7 Lymph # (Auto) 1.6 [place] # (Auto) 0.8 Eos # (Auto) 0.3 Baso # (Auto) 0.1 Abs Immat Gran (auto) 0.36 H Absolute Neuts (auto) 6.7 Absolute Nucleated RBC 0.020 H Nucleated RBC % (auto) 0.2 VBG pH 7.46 H VBG pCO2 52 VBG pO2 33 VBG HCO3 38 H VBG O2 Saturation 50.0 VBG Base Excess 12.5 Sodium 144 Potassium 3.3 Chloride 101 Carbon Dioxide 33 H Anion Gap 13 BUN 22 H Creatinine 1.08 Estim Creat Clear Calc 94.8 Estimated GFR > 60 POC Glucose 87 Random Glucose 83 Calcium 8.9 Phosphorus 2.7 Magnesium 2.0 Microbiology Microbiology Results: Microbiology 10/27/24 03:26 Sputum - Suctioned Gram Stain - Final 10/27/24 03:26 Sputum - Suctioned Sputum Culture - Final Methicillin Res Staph Aureus 10/26/24 16:48 Blood - Venous Blood Culture - Preliminary No growth after 48 hours. 10/26/24 16:22 Blood - Venous Blood Culture - Preliminary No growth after 48 hours. Progress Note: A&P Assessment and plan (1) Acute hypoxic respiratory failure: Status: Acute (2) Pneumonia: Status: Acute (3) LALI (obstructive sleep apnea): Status: Acute Plan Patient is a 69 Y M w/ hypertension, diabetes mellitus, c/b HFpEF and pulmonary hypertension, CVA in 2019, obesity c/b LALI, presenting initially on 10/26 w/ acute hypoxic respiratory failure d/t influenza, RSV, intubated, extubated 10/27 N: no acute issues CV: no acute issues; hypertension, HFpEF, home regimen R: acute hypoxic respiratory failure d/t influenza, RSV, intubated 10/26, extubated 10/27, oxymask AM, LALI on BiPAP PM, pending inpatient sleep study GI: no acute issues : no acute issues; CKD H: no acute issues; chemical DVT prophylaxis w/ enoxaparin SQ ID: influenza, RSV pneumonia, tamiflu, empiric antibiotics for possible bacterial superinfection E: diabetes mellitus; to monitor hypo-/hyper-glycemia P: no acute issues Quality Stroke Does the patient have a stroke diagnosis?: No VTE Prior VTE?: No VTE Risk Level:: Medical - moderate - high VTE Device Contraindication: N/A - Device Ordered VTE Drug Contraindication: N/A - Med Ordered
--- NOTE | 2024-10-31 09:48 | P.CDIM_ITS ---
PROVIDER RESPONSE TEXT: To clarify, the appropriate diagnosis supported by the clinical indicators: Pressure injury coccyx Stage 2: Probable QUERY TEXT: PHYSICIAN'S DOCUMENTATION REQUEST Date of Query: 10/31/2024 09:17 AM EST Patient Name: Chuck Card Admit Date: 10/26/2024 Dear Katlyn Gutiérrez MD, A review of the medical record indicates additional documentation may be needed. Please review below and update the documentation accordingly. Clinical Indicators: Wound care consultation notes 10/27 - Pressure injury Stage 2 coccyx - Present on admission. [place] to act as barrier and allow for moist wound healing. Based on the above, could you please provide further information regarding the ulcer/wound/injury: Pressure injury coccyx Stage 2 possible, probable, suspected etc. Other etiology of skin integrity Other (explain) Clinically unable to determine (explain) Thank you, Desiree Grace, CCS, CDIS Use of terms such as suspected, likely, concern for, or probable (associated with a specific diagnosi s that is being evaluated, monitored, or treated as if it exists) are acceptable and can be coded in the inpatient se tting, when documented at the time of discharge. Please use your independent medical judgment in providing your response. THIS QUERY IS PART OF THE PERMANENT MEDICAL RECORD
[2024-10-31] MEDS: 0.9 % Sodium Chloride Flush 3 ML SYRINGE IVFLUSH ×3 (10:05→21:19)
[2024-10-31] MEDS: amLODIPine Besylate 10 MG TABLET PO (10:06)
[2024-10-31] MEDS: Furosemide 40 MG TABLET PO (10:06)
[2024-10-31] MEDS: Aspirin 81 MG TAB.CHEW PO (10:06)
[2024-10-31] MEDS: Potassium Chloride Packet 20 MEQ PACKET 40 MEQ PO (10:07)
[2024-10-31] MEDS: Oseltamivir Phosphate 75 MG CAPSULE PO ×2 (10:07→21:02)
[2024-10-31] MEDS: lisinopriL 40 MG TABLET PO (10:07)
[2024-10-31] MEDS: Enoxaparin Sodium 40 MG/0.4 ML SYRINGE SUBCUT (10:08)
[2024-10-31] MEDS: Nystatin Powder 15 GM BOTTLE 1 APPL TOPICAL ×2 (10:10→22:24)
[2024-10-31] MEDS: cefTRIAXone sodium 1 GM VIAL IVPUSH (10:11)
[2024-10-31 11:13] LABS: Glucose, Whole Blood 114 mg/dL (60-115)
[2024-10-31 16:56] LABS: Glucose, Whole Blood 106 mg/dL (60-115)
[2024-10-31] MEDS: DULoxetine HCl 30 MG CAPSULE.DR PO (21:02)
[2024-10-31] MEDS: allopurinoL 300 MG TABLET PO (21:02)
[2024-10-31] MEDS: Atorvastatin Calcium 80 MG TABLET PO (21:02)
[2024-10-31] MEDS: Azithromycin 500 MG in 0.9 % Sodium Chloride 250 ML 125 MG IV (21:07)
[2024-10-31] MEDS: Acetaminophen 325 MG TABLET 975 MG PO (22:24)
[2024-10-31 23:42] LABS: Glucose, Whole Blood 87 mg/dL (60-115)
[2024-11-01] VITALS (12 sets, daily range): BP systolic 139–167; BP diastolic 73–86; PULSE 54–81; RESP 18–26; TEMP 36.2–36.9; O2SAT 89–98
[2024-11-01] MEDS: Albuterol/Iprat 2.5/0.5MG 3 ML AMPUL.NEB INHALE ×4 (00:25→23:22)
[2024-11-01 05:43] LABS: Glucose, Whole Blood 83 mg/dL (60-115)
[2024-11-01 06:38] LABS: MANUAL DIFF FLAG NO
[2024-11-01 06:46] LABS: Basophils Absolute Auto 0.1 X10*3/uL (0.0-0.2); Basophils Percent Auto 0.9 % (0-2); Eosinophils Absolute Auto 0.3 X10*3/uL (0.0-0.4); Eosinophils Percent Auto 3.6 % (0-4); Hematocrit 34.4 % (42.0-52.0); Hemoglobin 10.1 g/dl (14.0-18.0); Imm Gran Abs Auto 0.23 X10*3/uL (0.00-0.03); Imm Gran Pct Auto 2.6 % (0.0-0.4); Lymphocytes Absolute Auto 1.4 X10*3/uL (1.2-4.9); Mean Corpuscular HGB Conc 29.4 g/dl (31.0-36.0); Mean Corpuscular Hemoglobin 25.1 pg (27.0-33.0); Mean Corpuscular Volume 85.4 fL (80.0-98.0); Monocytes Absolute Auto 0.9 X10*3/uL (0.1-1.2); Monocytes Percent Auto 9.4 % (2-11); Neutrophils Absolute Auto 6.2 x10*3/uL (2.0-8.3); Neutrophils Percent Auto 68.5 % (45-73); Platelet Count 302 X10*3/uL (160-400); Red Blood Count 4.03 X10*6/uL (4.60-5.80); Red Cell Distribution Width 16.8 % (11.0-16.0)
[2024-11-01 06:58] LABS: Anion Gap 13 (12-20); Blood Urea Nitrogen 21 mg/dL (9-16); Calcium 9.4 mg/dL (8.4-10.2); Carbon Dioxide 32 mmol/L (22-29); Chloride 101 mmol/L (96-108); Creatinine Clr Calc Pharmacy 106.7; Estimated Glomerular Filt Rate > 60; Glucose Random 90 mg/dL (60-115); Magnesium 2.1 mg/dL (1.6-2.6); Phosphorus 3.1 mg/dL (2.7-4.5); Potassium 3.4 mmol/L (3.3-5.1); Sodium 143 mmol/L (135-145)
[2024-11-01] MEDS: amLODIPine Besylate 10 MG TABLET PO (08:39)
[2024-11-01] MEDS: Enoxaparin Sodium 40 MG/0.4 ML SYRINGE SUBCUT (08:39)
[2024-11-01] MEDS: cefTRIAXone sodium 1 GM VIAL IVPUSH (08:40)
[2024-11-01] MEDS: Aspirin 81 MG TAB.CHEW PO (08:40)
[2024-11-01] MEDS: DULoxetine HCl 30 MG CAPSULE.DR PO ×2 (08:40→20:47)
[2024-11-01] MEDS: Atorvastatin Calcium 80 MG TABLET PO ×2 (08:40→20:47)
[2024-11-01] MEDS: allopurinoL 300 MG TABLET PO ×2 (08:40→20:47)
[2024-11-01] MEDS: Cholecalciferol (Vitamin D3) 25 MCG TABLET PO (08:40)
[2024-11-01] MEDS: lisinopriL 40 MG TABLET PO (08:40)
[2024-11-01] MEDS: 0.9 % Sodium Chloride Flush 3 ML SYRINGE IVFLUSH ×3 (08:41→20:47)
[2024-11-01] MEDS: Acetaminophen 325 MG TABLET 975 MG PO ×2 (08:57→23:23)
[2024-11-01] MEDS: Furosemide 40 MG TABLET PO (09:00)
[2024-11-01] MEDS: Nystatin Powder 15 GM BOTTLE 1 APPL TOPICAL ×2 (10:30→20:47)
--- NOTE | 2024-11-01 10:49 | MHC.CLN ---
F/U PT TRANSFERRED TO MEDICAL FLOOR 50% X1 MEAL DIET RX: 2200DM RECEIVING ENSURE MAX BID TO PROMOTE WOUND HEALING SUPP PROVIDES 300KCALS, 60G PROTEIN CONTINUE TO MONITOR PO INTAKE AND ENCOURAGE SUPPLEMENTS
[2024-11-01 11:37] LABS: Glucose, Whole Blood 93 mg/dL (60-115)
--- NOTE | 2024-11-01 12:44 | HO.PM.IMPN ---
Subjective Subjective Date of Service: 11/01/24 Interval History: seen and examined this AM reports breathing is better and feels well later informed by RN, pt with decreased appetite Review of Systems Negative except HPI/interval history. Physical Exam Vital Signs: Vital Signs: Last Vital Signs Temp 97.7 F 11/01/24 11:26 Pulse 73 11/01/24 11:26 Resp 24 H 11/01/24 11:26 BP 140/73 H 11/01/24 11:26 Pulse Ox 92 11/01/24 11:26 O2 Del Method Nasal Cannula 11/01/24 11:26 O2 Flow Rate 6 11/01/24 11:26 FiO2 40 11/01/24 04:00 BMI result Body Mass Index 48.7 Const: Other: General - no acute distress, appears comfortable Cardiovascular - regular rate and rhythm, S1-S2 Lungs - normal respiratory effort, clear to auscultation bilaterally, no wheezing Abdomen - soft, nontender, no rebound or guarding Extremities - no edema bilaterally Neuro - awake and alert, no focal deficits Objective Data Active Medications Acetaminophen (Acetaminophen 325 Mg Tablet) 975 mg PO Q6H PRN PRN Reason: Pain, Mild 1-3,fever,headache Last Admin: 11/01/24 08:57 Dose: 975 mg Documented By: ROGELIO Albuterol Sulfate (Albuterol Sulfate (0.083%) 2.5 Mg/3 Ml Vial.Neb) 2.5 mg INHALE Q3H PRN PRN Reason: Wheezing Last Admin: 10/27/24 14:52 Dose: 2.5 mg Documented By: DOMITILA Albuterol/Ipratropium (Albuterol/Iprat 2.5/0.5mg 3 Ml Ampul.Neb) 3 ml INHALE RQ6H [facility] Last Admin: 11/01/24 12:02 Dose: Not Given Documented By: NATALIE Non-Admin Reason: Patient Refused Allopurinol (Allopurinol 300 Mg Tablet) 300 mg PO BID [facility] Last Admin: 11/01/24 08:40 Dose: 300 mg Documented By: ROGELIO Amlodipine Besylate (Amlodipine Besylate 10 Mg Tablet) 10 mg PO DAILY [facility]; Protocol Last Admin: 11/01/24 08:39 Dose: 10 mg Documented By: ROGELIO Aspirin (Aspirin 81 Mg Tab.Chew) 81 mg PO DAILY [facility] Last Admin: 11/01/24 08:40 Dose: 81 mg Documented By: ROGELIO Atorvastatin Calcium (Atorvastatin Calcium 80 Mg Tablet) 80 mg PO BEDTIME [facility] Last Admin: 10/31/24 21:02 Dose: 80 mg Documented By: VANE Atorvastatin Calcium (Atorvastatin Calcium 80 Mg Tablet) 80 mg PO DAILY [facility] Last Admin: 11/01/24 08:40 Dose: 80 mg Documented By: ROGELIO Ceftriaxone Sodium (Ceftriaxone Sodium 1 Gm Vial) 1 gm IVPUSH Q24H [facility] Last Admin: 11/01/24 08:40 Dose: 1 gm Documented By: ROGELIO Duloxetine HCl (Duloxetine Hcl 30 Mg Capsule.Dr) 30 mg PO BID [facility] Last Admin: 11/01/24 08:40 Dose: 30 mg Documented By: ROGELIO Enoxaparin Sodium (Enoxaparin Sodium 40 Mg/0.4 Ml Syringe) 40 mg SUBCUT Q24H [facility] Last Admin: 11/01/24 08:39 Dose: 40 mg Documented By: ROGELIO Fentanyl (Fentanyl Citrate/Pf 100 Mcg/2 Ml Vial) 50 mcg IVPUSH Q2H PRN; Protocol PRN Reason: Shortness of Breath Last Admin: 10/27/24 16:51 Dose: 50 mcg Documented By: JARON Furosemide (Furosemide 40 Mg Tablet) 40 mg PO DAILY [facility]; Protocol Last Admin: 11/01/24 09:00 Dose: 40 mg Documented By: ROGELIO Azithromycin 500 mg/ Sodium (Chloride) 250 mls @ 125 mls/hr IV Q24H [facility] Last Infusion: 10/31/24 23:07 Dose: Infused Documented By: VANE Insulin Human Lispro (Insulin Lispro 100 Unit/Ml 3 Ml Vial) 0 unit SUBCUT Q6H [facility]; Protocol Last Admin: 11/01/24 12:25 Dose: Not Given Documented By: ROGELIO Non-Admin Reason: No Insulin Coverage Lisinopril (Lisinopril 40 Mg Tablet) 40 mg PO DAILY [facility]; Protocol Last Admin: 11/01/24 08:40 Dose: 40 mg Documented By: ROEGLIO Nystatin (Nystatin Powder 15 Gm Bottle) 1 appl TOPICAL BID [facility]; Protocol Last Admin: 10/31/24 22:24 Dose: 1 appl Documented By: VANE Sodium Chloride (0.9 % Sodium Chloride Flush 3 Ml Syringe) 3 ml IVFLUSH QSHIFT [facility] Last Admin: 11/01/24 08:41 Dose: 3 ml Documented By: ROGELIO Vitamin D (Cholecalciferol (Vitamin D3) 25 Mcg Tablet) 25 mcg PO DAILY [facility] Last Admin: 11/01/24 08:40 Dose: 25 mcg Documented By: ROGELIO Labs 11/01/24 06:28 11/01/24 06:28 Labs: Laboratory Results - last 24 hr 10/31/24 10/31/24 11/01/24 16:51 23:29 05:37 MCV MCH MCHC RDW Plt Count MPV Immature Gran % (Auto) Neut % (Auto) Lymph % (Auto) [place] % (Auto) Eos % (Auto) Baso % (Auto) Lymph # (Auto) [place] # (Auto) Eos # (Auto) Baso # (Auto) Abs Immat Gran (auto) Absolute Neuts (auto) Absolute Nucleated RBC Nucleated RBC % (auto) Anion Gap Estim Creat Clear Calc Estimated GFR POC Glucose 106 87 83 Random Glucose Calcium Phosphorus Magnesium 11/01/24 11/01/24 06:28 11:30 MCV 85.4 MCH 25.1 L MCHC 29.4 L RDW 16.8 H Plt Count 302 MPV 10.0 Immature Gran % (Auto) 2.6 H Neut % (Auto) 68.5 Lymph % (Auto) 15.0 L [place] % (Auto) 9.4 Eos % (Auto) 3.6 Baso % (Auto) 0.9 Lymph # (Auto) 1.4 [place] # (Auto) 0.9 Eos # (Auto) 0.3 Baso # (Auto) 0.1 Abs Immat Gran (auto) 0.23 H Absolute Neuts (auto) 6.2 Absolute Nucleated RBC 0.000 Nucleated RBC % (auto) 0.0 Anion Gap 13 Estim Creat Clear Calc 106.7 Estimated GFR > 60 POC Glucose 93 Random Glucose 90 Calcium 9.4 Phosphorus 3.1 Magnesium 2.1 Microbiology Microbiology Results: Microbiology 10/26/24 16:48 Blood Culture - Final Blood - Venous No growth after 5 days. 10/26/24 16:22 Blood Culture - Final Blood - Venous No growth after 5 days. 10/27/24 03:26 Gram Stain - Final Sputum - Suctioned Sputum Culture - Final Methicillin Res Staph Aureus Assessment and Plan (1) Acute sepsis: Status: Acute (2) Pneumonia: Status: Acute Plan 69 M with a history of chronic hypoxic resp failure who was admitted to the ICU for sepsis, acute on chronic resp failure, FOREST, Flu/RSV s/p mech. vent. 1. Acute on chronic hypoxic resp failure and sepsis due to flu/rsv and likely MRSA bacteremia (sputum Cx growing MRSA) rocephin - day #6, change azithromcyin to doxy - day #1 f/u cultures - sputum with MRSA, blood negative to date still on 6L, wean as tolerated 2. LALI on BIPAP at night will d/w with pulm re: testing 3. Chronic HFpEF continue with oral lasix 4. Poor appetite likely due to acute illness encourage oral intake 5. DM hold orals use sliding scale 6. HTN continue meds 7. morbid obesity impacting his resp status weight loss / diet Full Code DVT pptx, lovenox Quality Stroke Does the patient have a stroke diagnosis?: No VTE Prior VTE?: No VTE Risk Level:: Medical - moderate - high VTE Device Contraindication: N/A - Device Ordered VTE Drug Contraindication: N/A - Med Ordered
[2024-11-01] MEDS: Doxycycline Hyclate 100 MG in 0.9 % Sodium Chloride 250 ML 166.67 MG IV (13:38)
--- NOTE | 2024-11-01 13:59 | HO.WOUND ---
Wound Consult: Follow up 69yr old male admitted to [facility] [place] on 10/26/24 - See progress notes and H&P for detailed history.? Wound consult placed for Buttock and skin folds.? Patient is intubated at this time. 10/27/24 129/25 Left Ischium and Left Inner Thigh Etiology: ??Improving - MASD Present on Admission Wound Bed: dark red purple - blanchable tissue - evidence of friction and moisture - scattered areas of full and partial thickness tissue loss- resolving Drainage / Odor: none noted at this time Edges: ? irregular Cass wound: MASD - ? No Induration, Fluctuance or Warmth noted Goals of Treatment: ? Triad to act as barrier to moisture and friction 10/27/24 11/01/24 Coccyx Etiology: Stage 2 Pressure Injury ??Present on Admission Measurements: 2cm x 0.3cm x 0.2cm Wound Bed: Improving red moist wound bed Drainage / Odor: none noted Edges: ? macerated and linear Cass wound: ?MASD - red pink blanchable tissue - evidence of friction noted No Induration, Fluctuance or Warmth noted Pain: tenderness reported Goals of Treatment: ? Triad to act as barrier and allow for moist wound healing Skin folds assessed for MASD - no clear indication on skin clinical presentation for fungal dermatitis however significant yeast odor noted. Nystatin already in place - may continue with treatment in effort to rid skin of fungal spores given odor. Interdry should be used to translocate moisture out of deep skin folds given his body habitus. The patients body habitus also does not accommodate sacral foam dressing if use this would likely trap moisture and lead to further skin break down. Pillows in use for positioning, REBECCA mattress in use and Q2hr turns along with heel protector boots in use. Heels were assessed to be intact and blanchable. No new topical recommendations needed at this time. Recommendations: 1. Turn and Reposition every 2 hours and as needed for patient comfort.? Use pillows or wedges to support off loading positions. 2. Off Load all bony prominences with use of pillows and heel boots if needed.? Apply Preventative foams where needed. ? 3. Monitor for incontinence and moisture control, use barrier creams when needed for prevention and treatment. 4. Provide adequate and supplemental nutrition.? 5. Continue low air loss mattress. 6. When applicable maintain blood glucose levels per Providers order. 7. Skin Folds - Tuck Interdry AG Sheet into skin fold to wick and translocate moisture away from skin fold.? Be sure to leave at least 2 inch of fabric exposed outside of skin fold.? Change after 5 days or when soiled. Apply antifungal power to assist with moisture management.? Be sure to dust of excess powder to prevent caking on skin and in folds. Apply per provider orders. 8. Coccyx, sacrum and Bilateral Ischiuma and Inner Thighs - Off Load Pressure with Q2 hr turns and use of pillows - Cleanse with PH balance spray or wipes, pat dry. ?Apply thin layer of Triad to wound bed - only pat and dab no scrub and rub when soiling occurs. Reapply thin layer PRN after each episode of incontinence. Re-consult wound care Nurse for wound deterioration or wound changes.
--- NOTE | 2024-11-01 15:02 | MHC.CM.PN ---
EMR REVIEWED, PT W/ACUTE RESP FAILURE, MRSA IN SPUTUM, PT REMAINS ON 6L O2, NO PLAN FOR DC AT THIS TIME, ANTIC PT WILL NEED P.T. FOR DISPO, CM WILL CONT TO FOLLOW DC NEEDS.
[2024-11-01 17:50] LABS: Glucose, Whole Blood 84 mg/dL (60-115)
[2024-11-01] MEDS: Trolamine Salicylate 10 % Cream 85 GM TUBE 1 APPL TOPICAL (17:54)
[2024-11-02] VITALS (9 sets, daily range): BP systolic 126–152; BP diastolic 60–78; PULSE 57–84; RESP 18–25; TEMP 36.3–36.8; O2SAT 91–97
[2024-11-02 00:02] LABS: Glucose, Whole Blood 85 mg/dL (60-115)
[2024-11-02] MEDS: Doxycycline Hyclate 100 MG in 0.9 % Sodium Chloride 250 ML 166.67 MG IV ×2 (01:44→13:17)
[2024-11-02] MEDS: Albuterol/Iprat 2.5/0.5MG 3 ML AMPUL.NEB INHALE ×2 (06:07→12:46)
[2024-11-02 06:10] LABS: Glucose, Whole Blood 74 mg/dL (60-115)
[2024-11-02 07:22] LABS: MANUAL DIFF FLAG NO
[2024-11-02 07:24] LABS: Basophils Absolute Auto 0.1 X10*3/uL (0.0-0.2); Basophils Percent Auto 0.9 % (0-2); Eosinophils Absolute Auto 0.4 X10*3/uL (0.0-0.4); Eosinophils Percent Auto 3.8 % (0-4); Hematocrit 33.4 % (42.0-52.0); Imm Gran Abs Auto 0.21 X10*3/uL (0.00-0.03); Imm Gran Pct Auto 2.1 % (0.0-0.4); Lymphocytes Absolute Auto 1.5 X10*3/uL (1.2-4.9); Lymphocytes Percent Auto 14.7 % (20-40); Mean Corpuscular HGB Conc 29.9 g/dl (31.0-36.0); Mean Corpuscular Hemoglobin 25.5 pg (27.0-33.0); Mean Corpuscular Volume 85.2 fL (80.0-98.0); Mean Platelet Volume 9.8 fL (9.4-12.4); Monocytes Absolute Auto 0.7 X10*3/uL (0.1-1.2); Monocytes Percent Auto 7.4 % (2-11); Neutrophils Absolute Auto 7.1 x10*3/uL (2.0-8.3); Neutrophils Percent Auto 71.1 % (45-73); Platelet Count 285 X10*3/uL (160-400); Red Blood Count 3.92 X10*6/uL (4.60-5.80); Red Cell Distribution Width 16.6 % (11.0-16.0)
[2024-11-02 07:28] LABS: Venous Blood Gas Refer to POC result
[2024-11-02 07:29] LABS: VBG Base Excess 12.1 mmol/L; VBG HCO3 38 mmol/L (22-26); VBG pCO2 60 mmHg; VBG pH 7.41 (7.32-7.43); VBG pO2 41 mmHg
[2024-11-02 07:41] LABS: Anion Gap 14 (12-20); Blood Urea Nitrogen 23 mg/dL (9-16); Calcium 9.4 mg/dL (8.4-10.2); Carbon Dioxide 30 mmol/L (22-29); Chloride 100 mmol/L (96-108); Creatinine Clr Calc Pharmacy 94.8; Estimated Glomerular Filt Rate > 60; Glucose Random 81 mg/dL (60-115); Phosphorus 3.3 mg/dL (2.7-4.5); Potassium 3.3 mmol/L (3.3-5.1); Sodium 141 mmol/L (135-145)
[2024-11-02] MEDS: cefTRIAXone sodium 1 GM VIAL IVPUSH (08:58)
[2024-11-02] MEDS: Acetaminophen 325 MG TABLET 975 MG PO (09:05)
[2024-11-02] MEDS: Enoxaparin Sodium 40 MG/0.4 ML SYRINGE SUBCUT (09:05)
[2024-11-02] MEDS: lisinopriL 40 MG TABLET PO (09:06)
[2024-11-02] MEDS: amLODIPine Besylate 10 MG TABLET PO (09:06)
[2024-11-02] MEDS: Cholecalciferol (Vitamin D3) 25 MCG TABLET PO (09:06)
[2024-11-02] MEDS: Furosemide 40 MG TABLET PO (09:06)
[2024-11-02] MEDS: Aspirin 81 MG TAB.CHEW PO (09:07)
[2024-11-02] MEDS: 0.9 % Sodium Chloride Flush 3 ML SYRINGE IVFLUSH ×3 (09:07→20:23)
[2024-11-02] MEDS: Atorvastatin Calcium 80 MG TABLET PO ×2 (09:07→20:23)
[2024-11-02] MEDS: DULoxetine HCl 30 MG CAPSULE.DR PO ×2 (09:07→20:23)
[2024-11-02] MEDS: allopurinoL 300 MG TABLET PO ×2 (10:21→20:23)
[2024-11-02] MEDS: Nystatin Powder 15 GM BOTTLE 1 APPL TOPICAL ×2 (10:23→20:30)
--- NOTE | 2024-11-02 11:16 | MHC.CM.PN ---
CM met with pt. to discuss PT rec. of STR, pt. in agreement with going, CM asked his choice of facility, he said [place], referrals out.
[2024-11-02 11:24] LABS: Glucose, Whole Blood 92 mg/dL (60-115)
[2024-11-02 12:27] LABS: ABG HCO3 34 mmol/L (22-26); ABG pCO2 52 mmHg (32-45); ABG pH 7.42 (7.35-7.45); ABG pO2 72 mmHg (83-108)
--- NOTE | 2024-11-02 12:35 | P.PNIM_ITS ---
Subjective Subjective Date of Service: 11/02/24 Interval History: seen and examined this AM reports feeling better daily Review of Systems Negative except HPI/interval history. Physical Exam 2 Vital Signs: Vital Signs: Last Vital Signs Temp 97.9 F 11/02/24 11:17 Pulse 68 11/02/24 11:17 Resp 18 11/02/24 11:17 BP 137/66 11/02/24 11:17 Pulse Ox 96 11/02/24 11:17 O2 Del Method Nasal Cannula 11/02/24 11:17 O2 Flow Rate 8 11/02/24 11:17 FiO2 32 11/02/24 04:00 BMI result Body Mass Index 48.7 Const: Other: General - no acute distress, appears comfortable Cardiovascular - regular rate and rhythm, S1-S2 Lungs - normal respiratory effort, clear to auscultation bilaterally, no wheezing Abdomen - soft, nontender, no rebound or guarding Extremities - no edema bilaterally Neuro - awake and alert, no focal deficits Objective Data Active Medications Acetaminophen (Acetaminophen 325 Mg Tablet) 975 mg PO Q6H PRN PRN Reason: Pain, Mild 1-3,fever,headache Last Admin: 11/02/24 09:05 Dose: 975 mg Documented By: ZAINA Albuterol Sulfate (Albuterol Sulfate (0.083%) 2.5 Mg/3 Ml Vial.Neb) 2.5 mg INHALE Q3H PRN PRN Reason: Wheezing Last Admin: 10/27/24 14:52 Dose: 2.5 mg Documented By: DOMITILA Albuterol/Ipratropium (Albuterol/Iprat 2.5/0.5mg 3 Ml Ampul.Neb) 3 ml INHALE RQ6H [facility] Last Admin: 11/02/24 06:07 Dose: 3 ml Documented By: ESME Allopurinol (Allopurinol 300 Mg Tablet) 300 mg PO BID [facility] Last Admin: 11/02/24 10:21 Dose: 300 mg Documented By: ZAINA Amlodipine Besylate (Amlodipine Besylate 10 Mg Tablet) 10 mg PO DAILY [facility]; Protocol Last Admin: 11/02/24 09:06 Dose: 10 mg Documented By: ZAINA Aspirin (Aspirin 81 Mg Tab.Chew) 81 mg PO DAILY [facility] Last Admin: 11/02/24 09:07 Dose: 81 mg Documented By: ZAINA Atorvastatin Calcium (Atorvastatin Calcium 80 Mg Tablet) 80 mg PO BEDTIME [facility] Last Admin: 11/01/24 20:47 Dose: 80 mg Documented By: JAY Atorvastatin Calcium (Atorvastatin Calcium 80 Mg Tablet) 80 mg PO DAILY [facility] Last Admin: 11/02/24 09:07 Dose: 80 mg Documented By: ZAINA Ceftriaxone Sodium (Ceftriaxone Sodium 1 Gm Vial) 1 gm IVPUSH Q24H [facility] Last Admin: 11/02/24 08:58 Dose: 1 gm Documented By: ZAINA Duloxetine HCl (Duloxetine Hcl 30 Mg Capsule.Dr) 30 mg PO BID [facility] Last Admin: 11/02/24 09:07 Dose: 30 mg Documented By: ZAINA Enoxaparin Sodium (Enoxaparin Sodium 40 Mg/0.4 Ml Syringe) 40 mg SUBCUT Q24H [facility] Last Admin: 11/02/24 09:05 Dose: 40 mg Documented By: ZAINA Furosemide (Furosemide 40 Mg Tablet) 40 mg PO DAILY [facility]; Protocol Last Admin: 11/02/24 09:06 Dose: 40 mg Documented By: ZAINA Doxycycline Hyclate 100 mg/ (Sodium Chloride) 250 mls @ 166.67 mls/hr IV Q12H [facility] Last Infusion: 11/02/24 03:14 Dose: Infused Documented By: JAY Insulin Human Lispro (Insulin Lispro 100 Unit/Ml 3 Ml Vial) 0 unit SUBCUT QIDACHS [facility]; Protocol Last Admin: 11/02/24 11:30 Dose: Not Given Documented By: ZAINA Non-Admin Reason: No Insulin Coverage Lisinopril (Lisinopril 40 Mg Tablet) 40 mg PO DAILY [facility]; Protocol Last Admin: 11/02/24 09:06 Dose: 40 mg Documented By: ZAINA Nystatin (Nystatin Powder 15 Gm Bottle) 1 appl TOPICAL BID [facility]; Protocol Last Admin: 11/02/24 10:23 Dose: 1 appl Documented By: ZAINA Sodium Chloride (0.9 % Sodium Chloride Flush 3 Ml Syringe) 3 ml IVFLUSH QSHIFT [facility] Last Admin: 11/02/24 09:07 Dose: 3 ml Documented By: ZAINA Trolamine Salicylate (Trolamine Salicylate 10 % Cream 85 Gm Tube) 1 appl TOPICAL BID [facility]; Protocol PRN Reason: Pain, Moderate(Pain Scale 4-6) Vitamin D (Cholecalciferol (Vitamin D3) 25 Mcg Tablet) 25 mcg PO DAILY [facility] Last Admin: 11/02/24 09:06 Dose: 25 mcg Documented By: ZAINA Labs 11/02/24 07:14 11/02/24 07:14 Labs: Laboratory Results - last 24 hr 11/01/24 11/01/24 11/02/24 17:43 23:58 06:05 MCV MCH MCHC RDW Plt Count MPV Immature Gran % (Auto) Neut % (Auto) Lymph % (Auto) [place] % (Auto) Eos % (Auto) Baso % (Auto) Lymph # (Auto) [place] # (Auto) Eos # (Auto) Baso # (Auto) Abs Immat Gran (auto) Absolute Neuts (auto) Absolute Nucleated RBC Nucleated RBC % (auto) O2 Saturation ABG pH at Pt Temp ABG pCO2 at Pt Temp ABG pO2 at Pt Temp ABG HCO3 ABG Base Excess (Actual) VBG pH VBG pCO2 VBG pO2 VBG HCO3 VBG O2 Saturation VBG Base Excess Anion Gap Estim Creat Clear Calc Estimated GFR POC Glucose 84 85 74 Random Glucose Calcium Phosphorus Magnesium 11/02/24 11/02/24 11/02/24 07:14 07:21 11:19 MCV 85.2 MCH 25.5 L MCHC 29.9 L RDW 16.6 H Plt Count 285 MPV 9.8 Immature Gran % (Auto) 2.1 H Neut % (Auto) 71.1 Lymph % (Auto) 14.7 L [place] % (Auto) 7.4 Eos % (Auto) 3.8 Baso % (Auto) 0.9 Lymph # (Auto) 1.5 [place] # (Auto) 0.7 Eos # (Auto) 0.4 Baso # (Auto) 0.1 Abs Immat Gran (auto) 0.21 H Absolute Neuts (auto) 7.1 Absolute Nucleated RBC 0.000 Nucleated RBC % (auto) 0.0 O2 Saturation ABG pH at Pt Temp ABG pCO2 at Pt Temp ABG pO2 at Pt Temp ABG HCO3 ABG Base Excess (Actual) VBG pH 7.41 VBG pCO2 60 VBG pO2 41 VBG HCO3 38 H VBG O2 Saturation 62.0 VBG Base Excess 12.1 Anion Gap 14 Estim Creat Clear Calc 94.8 Estimated GFR > 60 POC Glucose 92 Random Glucose 81 Calcium 9.4 Phosphorus 3.3 Magnesium 2.0 11/02/24 12:16 MCV MCH MCHC RDW Plt Count MPV Immature Gran % (Auto) Neut % (Auto) Lymph % (Auto) [place] % (Auto) Eos % (Auto) Baso % (Auto) Lymph # (Auto) [place] # (Auto) Eos # (Auto) Baso # (Auto) Abs Immat Gran (auto) Absolute Neuts (auto) Absolute Nucleated RBC Nucleated RBC % (auto) O2 Saturation 93.0 ABG pH at Pt Temp 7.42 ABG pCO2 at Pt Temp 52 H ABG pO2 at Pt Temp 72 L ABG HCO3 34 H ABG Base Excess (Actual) 9.0 VBG pH VBG pCO2 VBG pO2 VBG HCO3 VBG O2 Saturation VBG Base Excess Anion Gap Estim Creat Clear Calc Estimated GFR POC Glucose Random Glucose Calcium Phosphorus Magnesium Assessment and Plan (1) Acute sepsis: Status: Acute (2) Pneumonia: Status: Acute Plan 69 M with a history of chronic hypoxic resp failure who was admitted to the ICU for sepsis, acute on chronic resp failure, FOREST, Flu/RSV s/p mech. vent. 1. Acute on chronic hypoxic resp failure and sepsis due to flu/rsv and likely MRSA pneumonia (sputum Cx growing MRSA) rocephin - day #6, change azithromcyin to doxy - day #1 f/u cultures - sputum with MRSA, blood negative to date still on -8, wean as tolerated (baseline 3L) 2. LALI on BIPAP at night; trialed on CPAP last night with ABG showing pCO2 52; d/w Dr. Jacinto -- can continue CPAP, does not need BIPAP at this time; 3. Chronic HFpEF continue with oral lasix 4. Poor appetite likely due to acute illness encourage oral intake 5. DM hold orals use sliding scale 6. HTN continue meds 7. morbid obesity impacting his resp status weight loss / diet 8. weakness evaluated by pt -- recs STR which have been sent Full Code DVT pptx, lovenox Quality Stroke Does the patient have a stroke diagnosis?: No VTE Prior VTE?: No VTE Risk Level:: Medical - moderate - high VTE Device Contraindication: N/A - Device Ordered VTE Drug Contraindication: N/A - Med Ordered
[2024-11-02 18:05] LABS: Glucose, Whole Blood 101 mg/dL (60-115)
[2024-11-02 20:15] LABS: ABG Refer to POC result
[2024-11-02] MEDS: Magnesium Hydrox/Alum Hydrox 30 ML ORAL.SUSP 15 ML PO (20:54)
[2024-11-03] VITALS (8 sets, daily range): BP systolic 131–178; BP diastolic 73–85; PULSE 69–84; RESP 18–26; TEMP 36.2–37.1; O2SAT 90–99
[2024-11-03 00:15] LABS: Glucose, Whole Blood 87 mg/dL (60-115)
[2024-11-03] MEDS: Doxycycline Hyclate 100 MG in 0.9 % Sodium Chloride 250 ML 166.67 MG IV (01:15)
[2024-11-03] MEDS: Acetaminophen 325 MG TABLET 975 MG PO ×2 (05:33→21:52)
[2024-11-03 06:46] LABS: Glucose, Whole Blood 93 mg/dL (60-115)
[2024-11-03 07:18] LABS: MANUAL DIFF FLAG NO
[2024-11-03 07:24] LABS: Basophils Absolute Auto 0.1 X10*3/uL (0.0-0.2); Basophils Percent Auto 0.6 % (0-2); Eosinophils Absolute Auto 0.5 X10*3/uL (0.0-0.4); Eosinophils Percent Auto 4.4 % (0-4); Hematocrit 34.4 % (42.0-52.0); Hemoglobin 10.2 g/dl (14.0-18.0); Imm Gran Abs Auto 0.14 X10*3/uL (0.00-0.03); Imm Gran Pct Auto 1.3 % (0.0-0.4); Lymphocytes Absolute Auto 1.2 X10*3/uL (1.2-4.9); Mean Corpuscular HGB Conc 29.7 g/dl (31.0-36.0); Mean Corpuscular Hemoglobin 25.2 pg (27.0-33.0); Mean Corpuscular Volume 85.1 fL (80.0-98.0); Mean Platelet Volume 9.9 fL (9.4-12.4); Monocytes Absolute Auto 0.7 X10*3/uL (0.1-1.2); Monocytes Percent Auto 6.9 % (2-11); Neutrophils Absolute Auto 8.2 x10*3/uL (2.0-8.3); Neutrophils Percent Auto 75.8 % (45-73); Platelet Count 328 X10*3/uL (160-400); Red Blood Count 4.04 X10*6/uL (4.60-5.80); Red Cell Distribution Width 16.6 % (11.0-16.0); White Blood Count 10.8 X10*3/uL (4.8-10.8)
[2024-11-03 07:43] LABS: Anion Gap 15 (12-20); Blood Urea Nitrogen 22 mg/dL (9-16); Calcium 9.5 mg/dL (8.4-10.2); Carbon Dioxide 29 mmol/L (22-29); Chloride 103 mmol/L (96-108); Creatinine Clr Calc Pharmacy 112.6; Estimated Glomerular Filt Rate > 60; Glucose Random 86 mg/dL (60-115); Magnesium 2.2 mg/dL (1.6-2.6); Phosphorus 2.7 mg/dL (2.7-4.5); Potassium 3.3 mmol/L (3.3-5.1); Sodium 144 mmol/L (135-145)
[2024-11-03] MEDS: Enoxaparin Sodium 40 MG/0.4 ML SYRINGE SUBCUT (08:16)
[2024-11-03] MEDS: Cholecalciferol (Vitamin D3) 25 MCG TABLET PO (08:17)
[2024-11-03] MEDS: DULoxetine HCl 30 MG CAPSULE.DR PO ×2 (08:17→21:52)
[2024-11-03] MEDS: amLODIPine Besylate 10 MG TABLET PO (08:18)
[2024-11-03] MEDS: Aspirin 81 MG TAB.CHEW PO (08:18)
[2024-11-03] MEDS: Furosemide 40 MG TABLET PO (08:18)
[2024-11-03] MEDS: Atorvastatin Calcium 80 MG TABLET PO (08:18)
[2024-11-03] MEDS: lisinopriL 40 MG TABLET PO (08:18)
[2024-11-03] MEDS: allopurinoL 300 MG TABLET PO ×2 (08:18→21:52)
[2024-11-03] MEDS: 0.9 % Sodium Chloride Flush 3 ML SYRINGE IVFLUSH ×2 (08:19→21:54)
[2024-11-03] MEDS: Nystatin Powder 15 GM BOTTLE 1 APPL TOPICAL ×2 (08:21→21:59)
[2024-11-03] MEDS: cefTRIAXone sodium 1 GM VIAL IVPUSH (08:22)
--- NOTE | 2024-11-03 09:56 | P.PNIM_ITS ---
Subjective Subjective Date of Service: 11/03/24 Interval History: seen and examined no complaints slept well Physical Exam 2 Vital Signs: Vital Signs: Last Vital Signs Temp 98.6 F 11/03/24 07:23 Pulse 69 11/03/24 07:23 Resp 20 11/03/24 07:23 BP 131/79 11/03/24 07:23 Pulse Ox 94 11/03/24 07:23 O2 Del Method Nasal Cannula 11/03/24 07:23 O2 Flow Rate 5 11/03/24 07:23 FiO2 32 11/03/24 04:00 BMI result Body Mass Index 48.7 Const: Other: General - no acute distress, appears comfortable Cardiovascular - regular rate and rhythm, S1-S2 Lungs - normal respiratory effort, clear to auscultation bilaterally, no wheezing Abdomen - soft, nontender, no rebound or guarding Extremities - no edema bilaterally Neuro - awake and alert, no focal deficits Objective Data Active Medications Acetaminophen (Acetaminophen 325 Mg Tablet) 975 mg PO Q6H PRN PRN Reason: Pain, Mild 1-3,fever,headache Last Admin: 11/03/24 05:33 Dose: 975 mg Documented By: JAY Al Hydroxide/Mg Hydroxide (Magnesium Hydrox/Alum Hydrox 30 Ml Oral.Susp) 15 ml PO Q4H PRN PRN Reason: Indigestion Last Admin: 11/02/24 20:54 Dose: 15 ml Documented By: JAY Allopurinol (Allopurinol 300 Mg Tablet) 300 mg PO BID [facility] Last Admin: 11/03/24 08:18 Dose: 300 mg Documented By: YASMIN Amlodipine Besylate (Amlodipine Besylate 10 Mg Tablet) 10 mg PO DAILY [facility]; Protocol Last Admin: 11/03/24 08:18 Dose: 10 mg Documented By: YASMIN Aspirin (Aspirin 81 Mg Tab.Chew) 81 mg PO DAILY [facility] Last Admin: 11/03/24 08:18 Dose: 81 mg Documented By: YASMIN Atorvastatin Calcium (Atorvastatin Calcium 80 Mg Tablet) 80 mg PO BEDTIME [facility] Last Admin: 11/02/24 20:23 Dose: 80 mg Documented By: JAY Atorvastatin Calcium (Atorvastatin Calcium 80 Mg Tablet) 80 mg PO DAILY [facility] Last Admin: 11/03/24 08:18 Dose: 80 mg Documented By: YASMIN Ceftriaxone Sodium (Ceftriaxone Sodium 1 Gm Vial) 1 gm IVPUSH Q24H [facility] Last Admin: 11/03/24 08:22 Dose: 1 gm Documented By: YASMIN Duloxetine HCl (Duloxetine Hcl 30 Mg Capsule.Dr) 30 mg PO BID [facility] Last Admin: 11/03/24 08:17 Dose: 30 mg Documented By: YASMIN Enoxaparin Sodium (Enoxaparin Sodium 40 Mg/0.4 Ml Syringe) 40 mg SUBCUT Q24H [facility] Last Admin: 11/03/24 08:16 Dose: 40 mg Documented By: YASMIN Furosemide (Furosemide 40 Mg Tablet) 40 mg PO DAILY [facility]; Protocol Last Admin: 11/03/24 08:18 Dose: 40 mg Documented By: YASMIN Doxycycline Hyclate 100 mg/ (Sodium Chloride) 250 mls @ 166.67 mls/hr IV Q12H [facility] Last Infusion: 11/03/24 02:45 Dose: Infused Documented By: JAY Insulin Human Lispro (Insulin Lispro 100 Unit/Ml 3 Ml Vial) 0 unit SUBCUT QIDACHS [facility]; Protocol Last Admin: 11/03/24 08:00 Dose: Not Given Documented By: YASMIN Non-Admin Reason: No Insulin Coverage Lisinopril (Lisinopril 40 Mg Tablet) 40 mg PO DAILY [facility]; Protocol Last Admin: 11/03/24 08:18 Dose: 40 mg Documented By: YASMIN Nystatin (Nystatin Powder 15 Gm Bottle) 1 appl TOPICAL BID [facility]; Protocol Last Admin: 11/03/24 08:21 Dose: 1 appl Documented By: YASMIN Sodium Chloride (0.9 % Sodium Chloride Flush 3 Ml Syringe) 3 ml IVFLUSH QSHIFT [facility] Last Admin: 11/03/24 08:19 Dose: 3 ml Documented By: YASMIN Trolamine Salicylate (Trolamine Salicylate 10 % Cream 85 Gm Tube) 1 appl TOPICAL BID [facility]; Protocol PRN Reason: Pain, Moderate(Pain Scale 4-6) Vitamin D (Cholecalciferol (Vitamin D3) 25 Mcg Tablet) 25 mcg PO DAILY [facility] Last Admin: 11/03/24 08:17 Dose: 25 mcg Documented By: YASMIN Labs 11/03/24 06:59 11/03/24 06:59 Labs: Laboratory Results - last 24 hr 11/02/24 11/02/24 11/02/24 11:19 12:16 18:01 MCV MCH MCHC RDW Plt Count MPV Immature Gran % (Auto) Neut % (Auto) Lymph % (Auto) [place] % (Auto) Eos % (Auto) Baso % (Auto) Lymph # (Auto) [place] # (Auto) Eos # (Auto) Baso # (Auto) Abs Immat Gran (auto) Absolute Neuts (auto) Absolute Nucleated RBC Nucleated RBC % (auto) O2 Saturation 93.0 ABG pH at Pt Temp 7.42 ABG pCO2 at Pt Temp 52 H ABG pO2 at Pt Temp 72 L ABG HCO3 34 H ABG Base Excess (Actual) 9.0 Anion Gap Estim Creat Clear Calc Estimated GFR POC Glucose 92 101 Random Glucose Calcium Phosphorus Magnesium 11/03/24 11/03/24 11/03/24 00:09 06:40 06:59 MCV 85.1 MCH 25.2 L MCHC 29.7 L RDW 16.6 H Plt Count 328 MPV 9.9 Immature Gran % (Auto) 1.3 H Neut % (Auto) 75.8 H Lymph % (Auto) 11.0 L [place] % (Auto) 6.9 Eos % (Auto) 4.4 H Baso % (Auto) 0.6 Lymph # (Auto) 1.2 [place] # (Auto) 0.7 Eos # (Auto) 0.5 H Baso # (Auto) 0.1 Abs Immat Gran (auto) 0.14 H Absolute Neuts (auto) 8.2 Absolute Nucleated RBC 0.000 Nucleated RBC % (auto) 0.0 O2 Saturation ABG pH at Pt Temp ABG pCO2 at Pt Temp ABG pO2 at Pt Temp ABG HCO3 ABG Base Excess (Actual) Anion Gap 15 Estim Creat Clear Calc 112.6 Estimated GFR > 60 POC Glucose 87 93 Random Glucose 86 Calcium 9.5 Phosphorus 2.7 Magnesium 2.2 Assessment and Plan (1) Acute sepsis: Status: Acute (2) Pneumonia: Status: Acute Plan 69 M with a history of chronic hypoxic resp failure who was admitted to the ICU for sepsis, acute on chronic resp failure, FOR[facility], Flu/RSV s/p mech. vent. 1. Acute on chronic hypoxic resp failure and sepsis due to flu/rsv and likely MRSA pneumonia (sputum Cx growing MRSA) rocephin - day #6, change azithromcyin to doxy - day #1 f/u cultures - sputum with MRSA, blood negative to date tolerating 4-5L now 2. LALI on BIPAP at night; trialed on CPAP last night with ABG showing pCO2 52; d/w Dr. Jacinto -- can continue CPAP, does not need BIPAP at this time; 3. Chronic HFpEF continue with oral lasix 4. Poor appetite likely due to acute illness encourage oral intake 5. DM hold orals use sliding scale 6. HTN continue meds 7. morbid obesity impacting his resp status weight loss / diet 8. weakness evaluated by pt -- recs STR which have been sent Full Code DVT pptx, lovenox dispo: STR when bed available Quality Stroke Does the patient have a stroke diagnosis?: No VTE Prior VTE?: No VTE Risk Level:: Medical - moderate - high VTE Device Contraindication: N/A - Device Ordered VTE Drug Contraindication: N/A - Med Ordered
--- NOTE | 2024-11-03 10:36 | MHC.CLN ---
F/U PO INTAKE 75% X1 MEAL DIET RX: 2200DM PT RECEIVING ENSURE MAX BID TO PROMOTE WOUND HEALING SUPP PROVIDES 300KCALS, 60G PROTEIN WITH 100% ACCEPTANCE CONTINUE TO MONITOR PO INTAKE AND ENCOURAGE SUPPLEMENTS
--- NOTE | 2024-11-03 10:48 | MHC.CM.PN ---
Addendum entered by Yashira Pierre 11/03/24 16:11: [facility] IS OFFERING A BED AND HAS SUBMITTED FOR AUTH Original Note: PER MD ROUNDS, PT EXPECTED TO BE CLEARED FOR DC TODAY. STR REFERRALS OUT, HOWEVER THERE ARE NO BED OFFERS AT THIS TIME STEVEN, ANAYELI VIEIRA AND MELVIN FOLLOWING REFERRAL UPDATED, AWAITING RESPONSES
[2024-11-03 11:24] LABS: Glucose, Whole Blood 94 mg/dL (60-115)
[2024-11-03] MEDS: Doxycycline Monohydrate 100 MG CAPSULE PO (14:30)
[2024-11-03 17:53] LABS: Glucose, Whole Blood 89 mg/dL (60-115)
[2024-11-03 19:37] LABS: Glucose, Whole Blood 95 mg/dL (60-115)
[2024-11-04] VITALS (7 sets, daily range): BP systolic 122–140; BP diastolic 50–68; PULSE 64–80; RESP 18–24; TEMP 36.1–36.5; O2SAT 88–98
[2024-11-04 00:13] LABS: Glucose, Whole Blood 82 mg/dL (60-115)
[2024-11-04] MEDS: Doxycycline Monohydrate 100 MG CAPSULE PO ×3 (05:24→21:36)
[2024-11-04 05:59] LABS: Glucose, Whole Blood 80 mg/dL (60-115)
[2024-11-04 06:39] LABS: MANUAL DIFF FLAG NO
[2024-11-04 06:45] LABS: Basophils Absolute Auto 0.1 X10*3/uL (0.0-0.2); Basophils Percent Auto 1.1 % (0-2); Eosinophils Absolute Auto 0.5 X10*3/uL (0.0-0.4); Eosinophils Percent Auto 5.4 % (0-4); Hematocrit 33.5 % (42.0-52.0); Hemoglobin 9.7 g/dl (14.0-18.0); Imm Gran Abs Auto 0.08 X10*3/uL (0.00-0.03); Imm Gran Pct Auto 0.8 % (0.0-0.4); Lymphocytes Absolute Auto 1.3 X10*3/uL (1.2-4.9); Lymphocytes Percent Auto 12.7 % (20-40); Mean Corpuscular Hemoglobin 24.8 pg (27.0-33.0); Mean Corpuscular Volume 85.7 fL (80.0-98.0); Monocytes Absolute Auto 0.9 X10*3/uL (0.1-1.2); Neutrophils Absolute Auto 7.1 x10*3/uL (2.0-8.3); Platelet Count 330 X10*3/uL (160-400); Red Blood Count 3.91 X10*6/uL (4.60-5.80); Red Cell Distribution Width 16.9 % (11.0-16.0)
[2024-11-04 06:58] LABS: Anion Gap 16 (12-20); Blood Urea Nitrogen 25 mg/dL (9-16); Calcium 9.5 mg/dL (8.4-10.2); Carbon Dioxide 28 mmol/L (22-29); Chloride 103 mmol/L (96-108); Creatinine Clr Calc Pharmacy 97.5; Estimated Glomerular Filt Rate > 60; Glucose Random 82 mg/dL (60-115); Magnesium 2.1 mg/dL (1.6-2.6); Phosphorus 3.2 mg/dL (2.7-4.5); Potassium 3.2 mmol/L (3.3-5.1); Sodium 144 mmol/L (135-145)
[2024-11-04] MEDS: Enoxaparin Sodium 40 MG/0.4 ML SYRINGE SUBCUT (09:08)
[2024-11-04] MEDS: Acetaminophen 325 MG TABLET 975 MG PO ×2 (09:08→18:09)
[2024-11-04] MEDS: Cholecalciferol (Vitamin D3) 25 MCG TABLET PO (09:08)
[2024-11-04] MEDS: Aspirin 81 MG TAB.CHEW PO (09:09)
[2024-11-04] MEDS: DULoxetine HCl 30 MG CAPSULE.DR PO ×2 (09:09→21:36)
[2024-11-04] MEDS: amLODIPine Besylate 10 MG TABLET PO (09:09)
[2024-11-04] MEDS: lisinopriL 40 MG TABLET PO (09:09)
[2024-11-04] MEDS: allopurinoL 300 MG TABLET PO ×2 (09:09→21:36)
[2024-11-04] MEDS: Furosemide 40 MG TABLET PO (09:09)
[2024-11-04] MEDS: 0.9 % Sodium Chloride Flush 3 ML SYRINGE IVFLUSH ×3 (09:10→21:39)
[2024-11-04] MEDS: cefTRIAXone sodium 1 GM VIAL IVPUSH (09:10)
[2024-11-04] MEDS: Nystatin Powder 15 GM BOTTLE 1 APPL TOPICAL ×2 (09:23→21:38)
--- NOTE | 2024-11-04 10:46 | HO.PM.IMPN ---
Subjective Subjective Date of Service: 11/04/24 Interval History: seen and examined no complaints, doing okay Review of Systems Negative except HPI/interval history. Physical Exam Vital Signs: Vital Signs: Last Vital Signs Temp 97.5 F 11/04/24 07:16 Pulse 70 11/04/24 07:16 Resp 18 11/04/24 07:16 BP 124/59 L 11/04/24 07:16 Pulse Ox 97 11/04/24 07:16 O2 Del Method Nasal Cannula 11/04/24 07:16 O2 Flow Rate 7 11/04/24 07:16 FiO2 32 11/04/24 04:00 BMI result Body Mass Index 48.7 Const: Other: General - no acute distress, appears comfortable Cardiovascular - regular rate and rhythm, S1-S2 Lungs - normal respiratory effort, clear to auscultation bilaterally, no wheezing Abdomen - soft, nontender, no rebound or guarding Extremities - no edema bilaterally Neuro - awake and alert, no focal deficits Objective Data Active Medications Acetaminophen (Acetaminophen 325 Mg Tablet) 975 mg PO Q6H PRN PRN Reason: Pain, Mild 1-3,fever,headache Last Admin: 11/04/24 09:08 Dose: 975 mg Documented By: ERMA Al Hydroxide/Mg Hydroxide (Magnesium Hydrox/Alum Hydrox 30 Ml Oral.Susp) 15 ml PO Q4H PRN PRN Reason: Indigestion Last Admin: 11/02/24 20:54 Dose: 15 ml Documented By: JAY Allopurinol (Allopurinol 300 Mg Tablet) 300 mg PO BID [facility] Last Admin: 11/04/24 09:09 Dose: 300 mg Documented By: ERMA Amlodipine Besylate (Amlodipine Besylate 10 Mg Tablet) 10 mg PO DAILY [facility]; Protocol Last Admin: 11/04/24 09:09 Dose: 10 mg Documented By: ERMA Aspirin (Aspirin 81 Mg Tab.Chew) 81 mg PO DAILY [facility] Last Admin: 11/04/24 09:09 Dose: 81 mg Documented By: ERMA Ceftriaxone Sodium (Ceftriaxone Sodium 1 Gm Vial) 1 gm IVPUSH Q24H [facility] Last Admin: 11/04/24 09:10 Dose: 1 gm Documented By: ERMA Doxycycline Monohydrate (Doxycycline Monohydrate 100 Mg Capsule) 100 mg PO Q12H [facility] Last Admin: 11/04/24 05:24 Dose: 100 mg Documented By: GISELE Duloxetine HCl (Duloxetine Hcl 30 Mg Capsule.Dr) 30 mg PO BID [facility] Last Admin: 11/04/24 09:09 Dose: 30 mg Documented By: ERMA Enoxaparin Sodium (Enoxaparin Sodium 40 Mg/0.4 Ml Syringe) 40 mg SUBCUT Q24H [facility] Last Admin: 11/04/24 09:08 Dose: 40 mg Documented By: ERMA Furosemide (Furosemide 40 Mg Tablet) 40 mg PO DAILY [facility]; Protocol Last Admin: 11/04/24 09:09 Dose: 40 mg Documented By: ERMA Insulin Human Lispro (Insulin Lispro 100 Unit/Ml 3 Ml Vial) 0 unit SUBCUT QIDACHS [facility]; Protocol Last Admin: 11/04/24 09:10 Dose: Not Given Documented By: ERMA Non-Admin Reason: No Insulin Coverage Lisinopril (Lisinopril 40 Mg Tablet) 40 mg PO DAILY [facility]; Protocol Last Admin: 11/04/24 09:09 Dose: 40 mg Documented By: ERMA Nystatin (Nystatin Powder 15 Gm Bottle) 1 appl TOPICAL BID [facility]; Protocol Last Admin: 11/04/24 09:23 Dose: 1 appl Documented By: ERMA Sodium Chloride (0.9 % Sodium Chloride Flush 3 Ml Syringe) 3 ml IVFLUSH QSHIFT [facility] Last Admin: 11/04/24 09:10 Dose: 3 ml Documented By: ERMA Trolamine Salicylate (Trolamine Salicylate 10 % Cream 85 Gm Tube) 1 appl TOPICAL BID PRN; Protocol PRN Reason: Pain, Moderate(Pain Scale 4-6) Vitamin D (Cholecalciferol (Vitamin D3) 25 Mcg Tablet) 25 mcg PO DAILY [facility] Last Admin: 11/04/24 09:08 Dose: 25 mcg Documented By: ERMA Labs 11/04/24 06:24 11/04/24 06:24 Labs: Laboratory Results - last 24 hr 11/03/24 11/03/24 11/03/24 11:19 17:49 19:34 MCV MCH MCHC RDW Plt Count MPV Immature Gran % (Auto) Neut % (Auto) Lymph % (Auto) [place] % (Auto) Eos % (Auto) Baso % (Auto) Lymph # (Auto) [place] # (Auto) Eos # (Auto) Baso # (Auto) Abs Immat Gran (auto) Absolute Neuts (auto) Absolute Nucleated RBC Nucleated RBC % (auto) Anion Gap Estim Creat Clear Calc Estimated GFR POC Glucose 94 89 95 Random Glucose Calcium Phosphorus Magnesium 11/04/24 11/04/24 11/04/24 00:00 05:53 06:24 MCV 85.7 MCH 24.8 L MCHC 29.0 L RDW 16.9 H Plt Count 330 MPV 10.0 Immature Gran % (Auto) 0.8 H Neut % (Auto) 71.0 Lymph % (Auto) 12.7 L [place] % (Auto) 9.0 Eos % (Auto) 5.4 H Baso % (Auto) 1.1 Lymph # (Auto) 1.3 [place] # (Auto) 0.9 Eos # (Auto) 0.5 H Baso # (Auto) 0.1 Abs Immat Gran (auto) 0.08 H Absolute Neuts (auto) 7.1 Absolute Nucleated RBC 0.000 Nucleated RBC % (auto) 0.0 Anion Gap 16 Estim Creat Clear Calc 97.5 Estimated GFR > 60 POC Glucose 82 80 Random Glucose 82 Calcium 9.5 Phosphorus 3.2 Magnesium 2.1 Assessment and Plan (1) Acute sepsis: Status: Acute (2) Pneumonia: Status: Acute Plan 69 M with a history of chronic hypoxic resp failure who was admitted to the ICU for sepsis, acute on chronic resp failure, FOREST, Flu/RSV s/p mech. vent. 1. Acute on chronic hypoxic resp failure and sepsis due to flu/rsv and likely MRSA pneumonia (sputum Cx growing MRSA) completed 7+ days rocephin and azithromycin; started on doxy once MRSA+ cultures notedill continue doxy - total 10d (started 11/01) f/u cultures - sputum with MRSA, blood negative to date tolerating 4-5L now 2. LALI on BIPAP at night; trialed on CPAP last night with ABG showing pCO2 52; d/w Dr. Jacinto -- can continue CPAP, does not need BIPAP at this time; 3. Chronic HFpEF continue with oral lasix 4. Poor appetite improved likely due to acute illness encourage oral intake 5. DM hold orals use sliding scale 6. HTN continue meds 7. morbid obesity impacting his resp status weight loss / diet 8. weakness evaluated by pt -- recs STR which have been sent Full Code DVT figueroa german dispo: STR when bed available Quality Stroke Does the patient have a stroke diagnosis?: No VTE Prior VTE?: No VTE Risk Level:: Medical - moderate - high VTE Device Contraindication: N/A - Device Ordered VTE Drug Contraindication: N/A - Med Ordered
[2024-11-04 12:08] LABS: Glucose, Whole Blood 106 mg/dL (60-115)
[2024-11-04 17:18] LABS: Glucose, Whole Blood 87 mg/dL (60-115)
[2024-11-04 18:13] LABS: Glucose, Whole Blood 111 mg/dL (60-115)
[2024-11-04 20:41] LABS: Glucose, Whole Blood 112 mg/dL (60-115)
[2024-11-05] VITALS (7 sets, daily range): BP systolic 102–155; BP diastolic 51–70; PULSE 59–70; RESP 16–20; TEMP 36.3–36.9; O2SAT 92–97
[2024-11-05 06:30] LABS: MANUAL DIFF FLAG NO
[2024-11-05 06:37] LABS: Basophils Absolute Auto 0.1 X10*3/uL (0.0-0.2); Eosinophils Absolute Auto 0.5 X10*3/uL (0.0-0.4); Eosinophils Percent Auto 5.9 % (0-4); Hemoglobin 9.7 g/dl (14.0-18.0); Imm Gran Abs Auto 0.06 X10*3/uL (0.00-0.03); Imm Gran Pct Auto 0.7 % (0.0-0.4); Lymphocytes Absolute Auto 1.2 X10*3/uL (1.2-4.9); Lymphocytes Percent Auto 13.4 % (20-40); Mean Corpuscular HGB Conc 29.4 g/dl (31.0-36.0); Mean Corpuscular Hemoglobin 25.1 pg (27.0-33.0); Mean Corpuscular Volume 85.3 fL (80.0-98.0); Mean Platelet Volume 10.1 fL (9.4-12.4); Monocytes Absolute Auto 0.6 X10*3/uL (0.1-1.2); Monocytes Percent Auto 7.2 % (2-11); Neutrophils Absolute Auto 6.4 x10*3/uL (2.0-8.3); Neutrophils Percent Auto 71.8 % (45-73); Platelet Count 335 X10*3/uL (160-400); Red Blood Count 3.87 X10*6/uL (4.60-5.80); Red Cell Distribution Width 16.8 % (11.0-16.0)
[2024-11-05 06:54] LABS: Anion Gap 15 (12-20); Blood Urea Nitrogen 31 mg/dL (9-16); Calcium 9.4 mg/dL (8.4-10.2); Carbon Dioxide 28 mmol/L (22-29); Chloride 103 mmol/L (96-108); Creatinine Clr Calc Pharmacy 99.4; Estimated Glomerular Filt Rate > 60; Glucose Random 85 mg/dL (60-115); Phosphorus 3.3 mg/dL (2.7-4.5); Potassium 3.1 mmol/L (3.3-5.1); Sodium 143 mmol/L (135-145)
[2024-11-05 08:01] LABS: Glucose, Whole Blood 96 mg/dL (60-115)
[2024-11-05] MEDS: DULoxetine HCl 30 MG CAPSULE.DR PO ×2 (08:29→20:35)
[2024-11-05] MEDS: Aspirin 81 MG TAB.CHEW PO (08:29)
[2024-11-05] MEDS: Enoxaparin Sodium 40 MG/0.4 ML SYRINGE SUBCUT (08:30)
[2024-11-05] MEDS: lisinopriL 40 MG TABLET PO (08:30)
[2024-11-05] MEDS: Doxycycline Monohydrate 100 MG CAPSULE PO ×2 (08:30→20:34)
[2024-11-05] MEDS: Furosemide 40 MG TABLET PO (08:30)
[2024-11-05] MEDS: 0.9 % Sodium Chloride Flush 3 ML SYRINGE IVFLUSH ×3 (08:30→20:37)
[2024-11-05] MEDS: Cholecalciferol (Vitamin D3) 25 MCG TABLET PO (08:30)
[2024-11-05] MEDS: allopurinoL 300 MG TABLET PO ×2 (08:30→20:34)
[2024-11-05] MEDS: amLODIPine Besylate 10 MG TABLET PO (08:30)
[2024-11-05] MEDS: Nystatin Powder 15 GM BOTTLE 1 APPL TOPICAL ×2 (08:35→20:35)
[2024-11-05] MEDS: Potassium Chloride ER 20 MEQ TAB.ER.PRT 40 MEQ PO (09:56)
--- NOTE | 2024-11-05 10:48 | P.PNIM_ITS ---
Subjective Subjective Date of Service: 11/05/24 Interval History: improving Physical Exam 2 Vital Signs: Vital Signs: Last Vital Signs Temp 98.1 F 11/05/24 07:49 Pulse 64 11/05/24 07:49 Resp 16 11/05/24 07:49 BP 131/51 L 11/05/24 07:49 Pulse Ox 94 11/05/24 07:49 O2 Del Method CPAP 11/05/24 07:49 O2 Flow Rate 4 11/04/24 19:41 FiO2 32 11/04/24 04:00 BMI result Body Mass Index 48.7 Const: Other: General - no acute distress, appears comfortable Cardiovascular - regular rate and rhythm, S1-S2 Lungs - normal respiratory effort, clear to auscultation bilaterally, no wheezing Abdomen - soft, nontender, no rebound or guarding Extremities - no edema bilaterally Neuro - awake and alert, no focal deficits Objective Data Active Medications Acetaminophen (Acetaminophen 325 Mg Tablet) 975 mg PO Q6H PRN PRN Reason: Pain, Mild 1-3,fever,headache Last Admin: 11/04/24 18:09 Dose: 975 mg Documented By: ERMA Al Hydroxide/Mg Hydroxide (Magnesium Hydrox/Alum Hydrox 30 Ml Oral.Susp) 15 ml PO Q4H PRN PRN Reason: Indigestion Last Admin: 11/02/24 20:54 Dose: 15 ml Documented By: JAY Allopurinol (Allopurinol 300 Mg Tablet) 300 mg PO BID [facility] Last Admin: 11/05/24 08:30 Dose: 300 mg Documented By: ERMA Amlodipine Besylate (Amlodipine Besylate 10 Mg Tablet) 10 mg PO DAILY [facility]; Protocol Last Admin: 11/05/24 08:30 Dose: 10 mg Documented By: ERMA Aspirin (Aspirin 81 Mg Tab.Chew) 81 mg PO DAILY [facility] Last Admin: 11/05/24 08:29 Dose: 81 mg Documented By: ERMA Doxycycline Monohydrate (Doxycycline Monohydrate 100 Mg Capsule) 100 mg PO Q12H [facility] Stop: 11/10/24 22:01 Last Admin: 11/05/24 08:30 Dose: 100 mg Documented By: ERMA Duloxetine HCl (Duloxetine Hcl 30 Mg Capsule.) 30 mg PO BID [facility] Last Admin: 11/05/24 08:29 Dose: 30 mg Documented By: ERMA Enoxaparin Sodium (Enoxaparin Sodium 40 Mg/0.4 Ml Syringe) 40 mg SUBCUT Q24H [facility] Last Admin: 11/05/24 08:30 Dose: 40 mg Documented By: ERMA Furosemide (Furosemide 40 Mg Tablet) 40 mg PO DAILY [facility]; Protocol Last Admin: 11/05/24 08:30 Dose: 40 mg Documented By: ERMA Insulin Human Lispro (Insulin Lispro 100 Unit/Ml 3 Ml Vial) 0 unit SUBCUT QIDACHS [facility]; Protocol Last Admin: 11/05/24 09:36 Dose: Not Given Documented By: ERMA Non-Admin Reason: No Insulin Coverage Lisinopril (Lisinopril 40 Mg Tablet) 40 mg PO DAILY [facility]; Protocol Last Admin: 11/05/24 08:30 Dose: 40 mg Documented By: ERMA Nystatin (Nystatin Powder 15 Gm Bottle) 1 appl TOPICAL BID [facility]; Protocol Last Admin: 11/05/24 08:35 Dose: 1 appl Sodium Chloride (0.9 % Sodium Chloride Flush 3 Ml Syringe) 3 ml IVFLUSH QSHIFT [facility] Last Admin: 11/05/24 08:30 Dose: 3 ml Documented By: ERMA Trolamine Salicylate (Trolamine Salicylate 10 % Cream 85 Gm Tube) 1 appl TOPICAL BID PRN; Protocol PRN Reason: Pain, Moderate(Pain Scale 4-6) Vitamin D (Cholecalciferol (Vitamin D3) 25 Mcg Tablet) 25 mcg PO DAILY [facility] Last Admin: 11/05/24 08:30 Dose: 25 mcg Documented By: ERMA Labs 11/05/24 06:19 11/05/24 06:19 Labs: Laboratory Results - last 24 hr 11/04/24 11/04/24 11/04/24 12:02 17:10 18:09 MCV MCH MCHC RDW Plt Count MPV Immature Gran % (Auto) Neut % (Auto) Lymph % (Auto) [place] % (Auto) Eos % (Auto) Baso % (Auto) Lymph # (Auto) [place] # (Auto) Eos # (Auto) Baso # (Auto) Abs Immat Gran (auto) Absolute Neuts (auto) Absolute Nucleated RBC Nucleated RBC % (auto) Anion Gap Estim Creat Clear Calc Estimated GFR POC Glucose 106 87 111 Random Glucose Calcium Phosphorus Magnesium 11/04/24 11/05/24 11/05/24 20:37 06:19 07:48 MCV 85.3 MCH 25.1 L MCHC 29.4 L RDW 16.8 H Plt Count 335 MPV 10.1 Immature Gran % (Auto) 0.7 H Neut % (Auto) 71.8 Lymph % (Auto) 13.4 L [place] % (Auto) 7.2 Eos % (Auto) 5.9 H Baso % (Auto) 1.0 Lymph # (Auto) 1.2 [place] # (Auto) 0.6 Eos # (Auto) 0.5 H Baso # (Auto) 0.1 Abs Immat Gran (auto) 0.06 H Absolute Neuts (auto) 6.4 Absolute Nucleated RBC 0.000 Nucleated RBC % (auto) 0.0 Anion Gap 15 Estim Creat Clear Calc 99.4 Estimated GFR > 60 POC Glucose 112 96 Random Glucose 85 Calcium 9.4 Phosphorus 3.3 Magnesium 2.0 Assessment and Plan (1) Acute sepsis: Status: Acute (2) Pneumonia: Status: Acute Plan 69 M with a history of chronic hypoxic resp failure who was admitted to the ICU for sepsis, acute on chronic resp failure, FOREST, Flu/RSV s/p mech. vent. Acute on chronic hypoxic resp failure and sepsis due to flu/rsv and likely MRSA pneumonia (sputum Cx growing MRSA) completed 7+ days rocephin and azithromycin; started on doxy once MRSA+ cultures notedill continue doxy - total 10d (started 11/01 end 11/10/24) f/u cultures - sputum with MRSA, blood negative to date tolerating 4-5L now LALI peviously on BIPAP at night, d/w Dr. Jacinto -- can continue CPAP, does not need BIPAP at this time; Chronic HFpEF continue with oral lasix Poor appetite improved likely due to acute illness encourage oral intake DM hold orals use sliding scale HTN continue meds morbid obesity impacting his resp status weight loss / diet weakness evaluated by pt -- recs STR which have been sent Full Code DVT pptx, lovenox dispo: STR when bed available Quality Stroke Does the patient have a stroke diagnosis?: No VTE Prior VTE?: No VTE Risk Level:: Medical - moderate - high VTE Device Contraindication: N/A - Device Ordered VTE Drug Contraindication: N/A - Med Ordered
[2024-11-05] MEDS: Acetaminophen 325 MG TABLET 975 MG PO (11:14)
[2024-11-05 11:15] LABS: Glucose, Whole Blood 106 mg/dL (60-115)
[2024-11-05 14:20] LABS: CDiff Gene PCR NEGATIVE (Negative)
[2024-11-05 16:20] LABS: Glucose, Whole Blood 93 mg/dL (60-115)
[2024-11-05] MEDS: Bismuth Subsalicylate 262 MG TABLET PO (16:26)
[2024-11-05 19:53] LABS: Glucose, Whole Blood 117 mg/dL (60-115)
[2024-11-06] VITALS (9 sets, daily range): BP systolic 100–141; BP diastolic 55–77; PULSE 55–68; RESP 16–23; TEMP 36.2–37.1; O2SAT 94–99
[2024-11-06 06:31] LABS: MANUAL DIFF FLAG NO
[2024-11-06 06:44] LABS: Basophils Absolute Auto 0.1 X10*3/uL (0.0-0.2); Eosinophils Absolute Auto 0.3 X10*3/uL (0.0-0.4); Eosinophils Percent Auto 3.3 % (0-4); Hematocrit 33.5 % (42.0-52.0); Hemoglobin 9.9 g/dl (14.0-18.0); Imm Gran Abs Auto 0.05 X10*3/uL (0.00-0.03); Imm Gran Pct Auto 0.6 % (0.0-0.4); Lymphocytes Absolute Auto 1.3 X10*3/uL (1.2-4.9); Lymphocytes Percent Auto 14.7 % (20-40); Mean Corpuscular HGB Conc 29.6 g/dl (31.0-36.0); Mean Corpuscular Hemoglobin 25.3 pg (27.0-33.0); Mean Corpuscular Volume 85.5 fL (80.0-98.0); Monocytes Absolute Auto 0.7 X10*3/uL (0.1-1.2); Neutrophils Absolute Auto 6.6 x10*3/uL (2.0-8.3); Neutrophils Percent Auto 72.4 % (45-73); Platelet Count 369 X10*3/uL (160-400); Red Blood Count 3.92 X10*6/uL (4.60-5.80); Red Cell Distribution Width 16.9 % (11.0-16.0); White Blood Count 9.1 X10*3/uL (4.8-10.8)
[2024-11-06 06:55] LABS: Alanine Aminotransferase 44 U/L (0-40); Albumin Level 3.4 g/dL (3.5-5.0); Alkaline Phosphatase 68 U/L (39-117); Anion Gap 16 (12-20); Aspartate Amino Transferase 38 U/L (5-37); Bilirubin Direct 0.1 mg/dL (0.0-0.5); Bilirubin Total 0.3 mg/dL (0.0-1.0); Blood Urea Nitrogen 32 mg/dL (9-16); Calcium 9.3 mg/dL (8.4-10.2); Carbon Dioxide 29 mmol/L (22-29); Chloride 102 mmol/L (96-108); Creatinine Clr Calc Pharmacy 90.6; Estimated Glomerular Filt Rate > 60; Glucose Random 90 mg/dL (60-115); Phosphorus 3.5 mg/dL (2.7-4.5); Potassium 3.4 mmol/L (3.3-5.1); Sodium 144 mmol/L (135-145); Total Protein 8.1 g/dL (6.5-8.0)
[2024-11-06 06:58] LABS: Glucose, Whole Blood 92 mg/dL (60-115)
[2024-11-06] MEDS: Cholecalciferol (Vitamin D3) 25 MCG TABLET PO (07:53)
[2024-11-06] MEDS: Aspirin 81 MG TAB.CHEW PO (07:53)
[2024-11-06] MEDS: DULoxetine HCl 30 MG CAPSULE.DR PO ×2 (07:53→21:32)
[2024-11-06] MEDS: lisinopriL 40 MG TABLET PO (07:53)
[2024-11-06] MEDS: Acetaminophen 325 MG TABLET 975 MG PO ×2 (07:53→21:31)
[2024-11-06] MEDS: Enoxaparin Sodium 40 MG/0.4 ML SYRINGE SUBCUT (07:53)
[2024-11-06] MEDS: allopurinoL 300 MG TABLET PO ×2 (07:54→21:32)
[2024-11-06] MEDS: amLODIPine Besylate 10 MG TABLET PO (07:54)
[2024-11-06] MEDS: Furosemide 40 MG TABLET PO (07:54)
[2024-11-06] MEDS: 0.9 % Sodium Chloride Flush 3 ML SYRINGE IVFLUSH ×3 (07:54→21:33)
[2024-11-06] MEDS: Nystatin Powder 15 GM BOTTLE 1 APPL TOPICAL ×2 (07:59→22:00)
--- NOTE | 2024-11-06 10:24 | MHC.CM.PN ---
PER MD ROUNDS, CARDIOLOGY CONSULT PENDING [facility] HAS SUBMITTED FOR STR AUTH
[2024-11-06 10:55] LABS: Glucose, Whole Blood 104 mg/dL (60-115)
[2024-11-06] MEDS: Doxycycline Monohydrate 100 MG CAPSULE PO ×2 (11:00→21:33)
--- NOTE | 2024-11-06 11:02 | P.PNIM_ITS ---
Subjective Subjective Date of Service: 11/06/24 Interval History: diarrhea, had brief episode of 2:1 block Physical Exam 2 Vital Signs: Vital Signs: Last Vital Signs Temp 97.8 F 11/06/24 07:08 Pulse 63 11/06/24 07:08 Resp 20 11/06/24 07:08 BP 119/57 L 11/06/24 07:08 Pulse Ox 95 11/06/24 07:08 O2 Del Method Nasal Cannula 11/06/24 07:08 O2 Flow Rate 5 11/06/24 07:08 FiO2 32 11/04/24 04:00 BMI result Body Mass Index 48.7 Const: Other: General - no acute distress, appears comfortable Cardiovascular - regular rate and rhythm, S1-S2 Lungs - normal respiratory effort, clear to auscultation bilaterally, no wheezing Abdomen - soft, nontender, no rebound or guarding Extremities - no edema bilaterally Neuro - awake and alert, no focal deficits Objective Data Active Medications Acetaminophen (Acetaminophen 325 Mg Tablet) 975 mg PO Q6H PRN PRN Reason: Pain, Mild 1-3,fever,headache Last Admin: 11/06/24 07:53 Dose: 975 mg Documented By: ZAINA Al Hydroxide/Mg Hydroxide (Magnesium Hydrox/Alum Hydrox 30 Ml Oral.Susp) 15 ml PO Q4H PRN PRN Reason: Indigestion Last Admin: 11/02/24 20:54 Dose: 15 ml Documented By: JAY Allopurinol (Allopurinol 300 Mg Tablet) 300 mg PO BID [facility] Last Admin: 11/06/24 07:54 Dose: 300 mg Documented By: ZAINA Amlodipine Besylate (Amlodipine Besylate 10 Mg Tablet) 10 mg PO DAILY [facility]; Protocol Last Admin: 11/06/24 07:54 Dose: 10 mg Documented By: ZAINA Aspirin (Aspirin 81 Mg Tab.Chew) 81 mg PO DAILY [facility] Last Admin: 11/06/24 07:53 Dose: 81 mg Documented By: ZAINA Bismuth Subsalicylate (Bismuth Subsalicylate 262 Mg Tablet) 262 mg PO Q1H PRN PRN Reason: stomache upset Last Admin: 11/05/24 16:26 Dose: 262 mg Documented By: ERMA Doxycycline Monohydrate (Doxycycline Monohydrate 100 Mg Capsule) 100 mg PO Q12H [facility] Stop: 11/10/24 22:01 Last Admin: 11/05/24 20:34 Dose: 100 mg Documented By: AVRIL Duloxetine HCl (Duloxetine Hcl 30 Mg Capsule.Dr) 30 mg PO BID [facility] Last Admin: 11/06/24 07:53 Dose: 30 mg Documented By: ZAINA Enoxaparin Sodium (Enoxaparin Sodium 40 Mg/0.4 Ml Syringe) 40 mg SUBCUT Q24H [facility] Last Admin: 11/06/24 07:53 Dose: 40 mg Documented By: ZAINA Furosemide (Furosemide 40 Mg Tablet) 40 mg PO DAILY [facility]; Protocol Last Admin: 11/06/24 07:54 Dose: 40 mg Documented By: ZAINA Insulin Human Lispro (Insulin Lispro 100 Unit/Ml 3 Ml Vial) 0 unit SUBCUT QIDACHS [facility]; Protocol Last Admin: 11/06/24 07:41 Dose: Not Given Documented By: ZAINA Non-Admin Reason: No Insulin Coverage Lisinopril (Lisinopril 40 Mg Tablet) 40 mg PO DAILY [facility]; Protocol Last Admin: 11/06/24 07:53 Dose: 40 mg Documented By: ZAINA Nystatin (Nystatin Powder 15 Gm Bottle) 1 appl TOPICAL BID [facility]; Protocol Last Admin: 11/06/24 07:59 Dose: 1 appl Documented By: ZAINA Sodium Chloride (0.9 % Sodium Chloride Flush 3 Ml Syringe) 3 ml IVFLUSH QSHIFT [facility] Last Admin: 11/06/24 07:54 Dose: 3 ml Documented By: ZAINA Trolamine Salicylate (Trolamine Salicylate 10 % Cream 85 Gm Tube) 1 appl TOPICAL BID PRN; Protocol PRN Reason: Pain, Moderate(Pain Scale 4-6) Vitamin D (Cholecalciferol (Vitamin D3) 25 Mcg Tablet) 25 mcg PO DAILY [facility] Last Admin: 11/06/24 07:53 Dose: 25 mcg Documented By: ZAINA Labs 11/06/24 06:08 11/06/24 06:08 Labs: Laboratory Results - last 24 hr 11/05/24 11/05/24 11/05/24 11:11 12:30 16:15 MCV MCH MCHC RDW Plt Count MPV Immature Gran % (Auto) Neut % (Auto) Lymph % (Auto) [place] % (Auto) Eos % (Auto) Baso % (Auto) Lymph # (Auto) [place] # (Auto) Eos # (Auto) Baso # (Auto) Abs Immat Gran (auto) Absolute Neuts (auto) Absolute Nucleated RBC Nucleated RBC % (auto) Anion Gap Estim Creat Clear Calc Estimated GFR POC Glucose 106 93 Random Glucose Calcium Phosphorus Magnesium Total Bilirubin Direct Bilirubin AST ALT Alkaline Phosphatase Total Protein Albumin C. difficile Tox B Gene NEGATIVE 11/05/24 11/06/24 11/06/24 19:49 06:08 06:54 MCV 85.5 MCH 25.3 L MCHC 29.6 L RDW 16.9 H Plt Count 369 MPV 10.0 Immature Gran % (Auto) 0.6 H Neut % (Auto) 72.4 Lymph % (Auto) 14.7 L [place] % (Auto) 8.0 Eos % (Auto) 3.3 Baso % (Auto) 1.0 Lymph # (Auto) 1.3 [place] # (Auto) 0.7 Eos # (Auto) 0.3 Baso # (Auto) 0.1 Abs Immat Gran (auto) 0.05 H Absolute Neuts (auto) 6.6 Absolute Nucleated RBC 0.000 Nucleated RBC % (auto) 0.0 Anion Gap 16 Estim Creat Clear Calc 90.6 Estimated GFR > 60 POC Glucose 117 H 92 Random Glucose 90 Calcium 9.3 Phosphorus 3.5 Magnesium 2.0 Total Bilirubin 0.3 Direct Bilirubin 0.1 AST 38 H ALT 44 H Alkaline Phosphatase 68 Total Protein 8.1 H Albumin 3.4 L C. difficile Tox B Gene 11/06/24 10:51 MCV MCH MCHC RDW Plt Count MPV Immature Gran % (Auto) Neut % (Auto) Lymph % (Auto) [place] % (Auto) Eos % (Auto) Baso % (Auto) Lymph # (Auto) [place] # (Auto) Eos # (Auto) Baso # (Auto) Abs Immat Gran (auto) Absolute Neuts (auto) Absolute Nucleated RBC Nucleated RBC % (auto) Anion Gap Estim Creat Clear Calc Estimated GFR POC Glucose 104 Random Glucose Calcium Phosphorus Magnesium Total Bilirubin Direct Bilirubin AST ALT Alkaline Phosphatase Total Protein Albumin C. difficile Tox B Gene Assessment and Plan (1) Acute sepsis: Status: Acute (2) Pneumonia: Status: Acute Plan 69 M with a history of chronic hypoxic resp failure who was admitted to the ICU for sepsis, acute on chronic resp failure, FOREST, Flu/RSV s/p mech. vent. Acute on chronic hypoxic resp failure and sepsis due to flu/rsv and likely MRSA pneumonia (sputum Cx growing MRSA) completed 7+ days rocephin and azithromycin; started on doxy once MRSA+ cultures notedill continue doxy - total 10d (started 11/01 end 11/10/24) f/u cultures - sputum with MRSA, blood negative to date tolerating 4-5L now Diarrhea C diff negative, Imodium p.r.n. ?2-1 block Cardio eval Monitor on tele LALI peviously on BIPAP at night, d/w Dr. Jacinto -- can continue CPAP, does not need BIPAP at this time; Chronic HFpEF continue with oral lasix Poor appetite improved likely due to acute illness encourage oral intake DM hold orals use sliding scale HTN continue meds morbid obesity impacting his resp status weight loss / diet weakness evaluated by pt -- recs STR which have been sent Full Code DVT pptx, lovenox dispo: STR when bed available Quality Stroke Does the patient have a stroke diagnosis?: No VTE Prior VTE?: No VTE Risk Level:: Medical - moderate - high VTE Device Contraindication: N/A - Device Ordered VTE Drug Contraindication: N/A - Med Ordered
--- NOTE | 2024-11-06 11:44 | MHC.CLN ---
F/U PO INTAKE 50% AVERAGE DIET RX: 2200DM PT RECEIVING ENSURE MAX BID TO PROMOTE WOUND HEALING SUPP PROVIDES 300KCALS, 60G PROTEIN WITH 100% ACCEPTANCE CONTINUE TO MONITOR PO INTAKE AND ENCOURAGE SUPPLEMENTS
--- NOTE | 2024-11-06 13:30 | P.CONCA_ITS ---
History of Present Illness History of Present Illness Date of Service: 11/06/24 Requesting physician: Rian Waller Chief complaint: Acute respiratory failure, AV Wekerikebach, 2:1 bloc Narrative: 69-year-old gentleman with acute respiratory failure and morbid obesity. He was noticed to have two-to-one AV block on telemetry today. This was on 7 a.m.. The patient is saying that he woke up around 05:00 o'clock and was up at that time. He did not feel any symptoms. Denying any dizziness or lightheadedness at any stage. No chest pain or shortness of breath. Overall improving from respiratory point of view. He is saying he has seen cardiology in the past but does not remember the reason he was seeing cardiology for. He has never had and in discussions with any physician about pacemaker placement. [facility] Past Medical History Medical History Morbid obesity Screening PSA (prostate specific antigen) Elevated serum creatinine Right heart failure Leg pain FOREST (acute kidney injury) Leukocytosis LALI (obstructive sleep apnea) Hyperlipidemia HTN (hypertension) Diastolic heart failure Newly diagnosed diabetes Acute gout of left foot Chronic fatigue Pulmonary arterial hypertension Cerebrovascular accident (CVA) Family History Family History Father Blood clot in vein Mother Cancer Surgical History Surgical History Hx of shoulder surgery No pertinent past surgical history Social History Social History Household Members: Unknown / Unable to assess Housing: Unknown / Unable to assess Do you presently have visiting nurse or other home services: No Unable to assess alcohol history related to: Unable to respond Patient Tobacco Use Status: Never used Tobacco Years Smoked: nonsmoker Use of substances other than those prescribed or required for medical reasons: Unknown Substance Use Type: Unknown Last Used Substance: Unknown Currently Displaying Signs/Symptoms of Drug Intoxication Withdrawal: No Advance Directives: Yes Advance Directives on File: Yes Advance Directives Date on File: 12/03/20 Nutrition Risks: On aspiration precautions Poor oral hygiene: Yes service: No Current occupational status: unemployed Meds Allergies Allergy/AdvReac Type Severity Reaction Status Date / Time No Known Allergies Allergy Verified 11/04/23 14:23 Active Medications: Current Medications Acetaminophen (Acetaminophen 325 Mg Tablet) 975 mg PO Q6H PRN PRN Reason: Pain, Mild 1-3,fever,headache Last Admin: 11/06/24 07:53 Dose: 975 mg Al Hydroxide/Mg Hydroxide (Magnesium Hydrox/Alum Hydrox 30 Ml Oral.Susp) 15 ml PO Q4H PRN PRN Reason: Indigestion Last Admin: 11/02/24 20:54 Dose: 15 ml Allopurinol (Allopurinol 300 Mg Tablet) 300 mg PO BID [facility] Last Admin: 11/06/24 07:54 Dose: 300 mg Amlodipine Besylate (Amlodipine Besylate 10 Mg Tablet) 10 mg PO DAILY [facility]; Protocol Last Admin: 11/06/24 07:54 Dose: 10 mg Aspirin (Aspirin 81 Mg Tab.Chew) 81 mg PO DAILY [facility] Last Admin: 11/06/24 07:53 Dose: 81 mg Bismuth Subsalicylate (Bismuth Subsalicylate 262 Mg Tablet) 262 mg PO Q1H PRN PRN Reason: stomache upset Last Admin: 11/05/24 16:26 Dose: 262 mg Doxycycline Monohydrate (Doxycycline Monohydrate 100 Mg Capsule) 100 mg PO Q12H [facility] Stop: 11/10/24 22:01 Last Admin: 11/06/24 11:00 Dose: 100 mg Duloxetine HCl (Duloxetine Hcl 30 Mg Capsule.Dr) 30 mg PO BID [facility] Last Admin: 11/06/24 07:53 Dose: 30 mg Enoxaparin Sodium (Enoxaparin Sodium 40 Mg/0.4 Ml Syringe) 40 mg SUBCUT Q24H [facility] Last Admin: 11/06/24 07:53 Dose: 40 mg Furosemide (Furosemide 40 Mg Tablet) 40 mg PO DAILY [facility]; Protocol Last Admin: 11/06/24 07:54 Dose: 40 mg Insulin Human Lispro (Insulin Lispro 100 Unit/Ml 3 Ml Vial) 0 unit SUBCUT QIDACHS [facility]; Protocol Last Admin: 11/06/24 11:16 Dose: Not Given Lisinopril (Lisinopril 40 Mg Tablet) 40 mg PO DAILY [facility]; Protocol Last Admin: 11/06/24 07:53 Dose: 40 mg Loperamide HCl (Loperamide Hcl 2 Mg Capsule) 2 mg PO Q4H PRN PRN Reason: Diarrhea Nystatin (Nystatin Powder 15 Gm Bottle) 1 appl TOPICAL BID [facility]; Protocol Last Admin: 11/06/24 07:59 Dose: 1 appl Sodium Chloride (0.9 % Sodium Chloride Flush 3 Ml Syringe) 3 ml IVFLUSH QSHIFT [facility] Last Admin: 11/06/24 07:54 Dose: 3 ml Trolamine Salicylate (Trolamine Salicylate 10 % Cream 85 Gm Tube) 1 appl TOPICAL BID PRN; Protocol PRN Reason: Pain, Moderate(Pain Scale 4-6) Vitamin D (Cholecalciferol (Vitamin D3) 25 Mcg Tablet) 25 mcg PO DAILY [facility] Last Admin: 11/06/24 07:53 Dose: 25 mcg Home Medications ?Medication ?Instructions ?Recorded ?Confirmed ?Last Taken ?Type aspirin 81 mg chewable tablet 81 mg PO DAILY 09/29/23 10/26/24 10/26/24 History cholecalciferol (vitamin D3) 25 25 mcg PO DAILY 10/26/24 10/26/24 10/26/24 History mcg (1,000 unit) tablet (Vitamin D3) Physical Exam 2 Vital Signs: Vital Signs: Last Vital Signs Temp 97.3 F 11/06/24 11:00 Pulse 64 11/06/24 11:00 Resp 20 11/06/24 11:00 BP 118/56 L 11/06/24 11:00 Pulse Ox 94 11/06/24 11:00 O2 Del Method Nasal Cannula 11/06/24 11:00 O2 Flow Rate 5 11/06/24 11:00 FiO2 32 11/04/24 04:00 BMI result Body Mass Index 48.7 GENERAL APPEARANCE: Obese, on supplemental oxygen. NECK: no carotid bruit, no jugular venous distention. SKIN: no suspicious lesions, warm and dry. HEART: no murmurs, regular rate and rhythm. LUNGS: clear to auscultation bilaterally. ABDOMEN: soft, nontender. EXTREMITIES: no edema. PERIPHERAL PULSES: equal. NEUROLOGIC: No gross deficits, AAO X 3 Objective Labs and Meds 11/06/24 06:08 11/06/24 06:08 Lab results: Laboratory Results - last 24 hr 11/05/24 11/05/24 11/05/24 12:30 16:15 19:49 WBC RBC Hgb Hct MCV MCH MCHC RDW Plt Count MPV Immature Gran % (Auto) Neut % (Auto) Lymph % (Auto) [place] % (Auto) Eos % (Auto) Baso % (Auto) Lymph # (Auto) [place] # (Auto) Eos # (Auto) Baso # (Auto) Abs Immat Gran (auto) Absolute Neuts (auto) Absolute Nucleated RBC Nucleated RBC % (auto) Sodium Potassium Chloride Carbon Dioxide Anion Gap BUN Creatinine Estim Creat Clear Calc Estimated GFR POC Glucose 93 117 H Random Glucose Calcium Phosphorus Magnesium Total Bilirubin Direct Bilirubin AST ALT Alkaline Phosphatase Total Protein Albumin C. difficile Tox B Gene NEGATIVE 11/06/24 11/06/24 11/06/24 06:08 06:54 10:51 WBC 9.1 RBC 3.92 L Hgb 9.9 L Hct 33.5 L MCV 85.5 MCH 25.3 L MCHC 29.6 L RDW 16.9 H Plt Count 369 MPV 10.0 Immature Gran % (Auto) 0.6 H Neut % (Auto) 72.4 Lymph % (Auto) 14.7 L [place] % (Auto) 8.0 Eos % (Auto) 3.3 Baso % (Auto) 1.0 Lymph # (Auto) 1.3 [place] # (Auto) 0.7 Eos # (Auto) 0.3 Baso # (Auto) 0.1 Abs Immat Gran (auto) 0.05 H Absolute Neuts (auto) 6.6 Absolute Nucleated RBC 0.000 Nucleated RBC % (auto) 0.0 Sodium 144 Potassium 3.4 Chloride 102 Carbon Dioxide 29 Anion Gap 16 BUN 32 H Creatinine 1.13 Estim Creat Clear Calc 90.6 Estimated GFR > 60 POC Glucose 92 104 Random Glucose 90 Calcium 9.3 Phosphorus 3.5 Magnesium 2.0 Total Bilirubin 0.3 Direct Bilirubin 0.1 AST 38 H ALT 44 H Alkaline Phosphatase 68 Total Protein 8.1 H Albumin 3.4 L C. difficile Tox B Gene Assessment and Plan (1) Respiratory syncytial virus (RSV): Status: Acute (2) Influenza: Status: Acute (3) Bradycardia: Status: Acute Plan 69-year-old gentleman with recent ICU admission with sepsis and respiratory failure. He had RSV and influenza and likely MRSA pneumonia. He is on antibiotics currently and improving clinically. Telemetry this morning showed two-to-one AV block. I have reviewed the telemetry strips and he clearly had AV Wenckebach before he started doing two-to-one block. This is somewhat reassuring. He does have first-degree AV block at baseline. He has no symptoms currently from heart block. He is not on any AV harjinder blocking agents. Monitor on telemetry. Also we need to see that if he is getting these bradycardic events when he is hypoxic. Overall currently I have reassured him. The presence of Wenckebach is reassuring but we will continue to monitor him on telemetry. Thank you for allowing me to participate in the care of your patient. Please feel free to contact me if you have any questions. Procedures Date of Service Date of Service: 11/06/24
[2024-11-06 16:00] LABS: Glucose, Whole Blood 91 mg/dL (60-115)
[2024-11-06 20:59] LABS: Glucose, Whole Blood 94 mg/dL (60-115)
[2024-11-07 03:31] VITALS: BP 118/58; PULSE 64; RESP 20; TEMP 36.1; O2SAT 99
--- NOTE | 2024-11-07 06:47 | PC.NURSE ---
0445 approx 10 beats vtach noted on telemetry. pt alert, easily arouseable, denies any discomfort/chest pain. MD aware.
[2024-11-07 06:49] LABS: Hematocrit 32.5 % (42.0-52.0); Hemoglobin 9.5 g/dl (14.0-18.0); Mean Corpuscular HGB Conc 29.2 g/dl (31.0-36.0); Mean Corpuscular Hemoglobin 25.3 pg (27.0-33.0); Mean Corpuscular Volume 86.4 fL (80.0-98.0); Mean Platelet Volume 9.9 fL (9.4-12.4); Platelet Count 356 X10*3/uL (160-400); Red Blood Count 3.76 X10*6/uL (4.60-5.80); Red Cell Distribution Width 16.7 % (11.0-16.0); White Blood Count 8.5 X10*3/uL (4.8-10.8)
[2024-11-07 07:08] LABS: Anion Gap 14 (12-20); Blood Urea Nitrogen 34 mg/dL (9-16); Calcium 9.7 mg/dL (8.4-10.2); Carbon Dioxide 32 mmol/L (22-29); Chloride 104 mmol/L (96-108); Creatinine Clr Calc Pharmacy 89.1; Estimated Glomerular Filt Rate > 60; Glucose Random 90 mg/dL (60-115); Potassium 3.7 mmol/L (3.3-5.1); Sodium 146 mmol/L (135-145)
[2024-11-07 07:36] VITALS: BP 133/63; PULSE 63; RESP 16; TEMP 36.1; O2SAT 97
[2024-11-07 07:45] LABS: Glucose, Whole Blood 85 mg/dL (60-115)
[2024-11-07] MEDS: lisinopriL 40 MG TABLET PO (07:52)
[2024-11-07] MEDS: amLODIPine Besylate 10 MG TABLET PO (07:52)
[2024-11-07] MEDS: Enoxaparin Sodium 40 MG/0.4 ML SYRINGE SUBCUT (07:52)
[2024-11-07] MEDS: allopurinoL 300 MG TABLET PO (07:52)
[2024-11-07] MEDS: DULoxetine HCl 30 MG CAPSULE.DR PO (07:52)
[2024-11-07] MEDS: 0.9 % Sodium Chloride Flush 3 ML SYRINGE IVFLUSH (07:53)
[2024-11-07] MEDS: Furosemide 40 MG TABLET PO (07:53)
[2024-11-07] MEDS: Cholecalciferol (Vitamin D3) 25 MCG TABLET PO (07:53)
--- NOTE | 2024-11-07 07:54 | PC.NURSE ---
[facility] service center director reported pink, raised area on patient left forearm , swelling present warm to touch. patient reports began developing 2-3 days ago. Md Waller notified this a.m.
[2024-11-07] MEDS: Aspirin 81 MG TAB.CHEW PO (08:41)
[2024-11-07] MEDS: Nystatin Powder 15 GM BOTTLE 1 APPL TOPICAL (08:41)
[2024-11-07] MEDS: Doxycycline Monohydrate 100 MG CAPSULE PO (08:41)
--- NOTE | 2024-11-07 08:56 | P.PNIM_ITS ---
Subjective Subjective Date of Service: 11/07/24 Interval History: overall imrpoved, diarrhea resolved Physical Exam 2 Vital Signs: Vital Signs: Last Vital Signs Temp 96.9 F 11/07/24 07:36 Pulse 63 11/07/24 07:36 Resp 16 11/07/24 07:36 BP 133/63 11/07/24 07:36 Pulse Ox 97 11/07/24 07:36 O2 Del Method Nasal Cannula 11/07/24 07:36 O2 Flow Rate 5 11/07/24 07:36 FiO2 32 11/07/24 04:00 BMI result Body Mass Index 48.7 GENERAL APPEARANCE: Obese, on supplemental oxygen. NECK: no carotid bruit, no jugular venous distention. SKIN: no suspicious lesions, warm and dry. HEART: no murmurs, regular rate and rhythm. LUNGS: clear to auscultation bilaterally. ABDOMEN: soft, nontender. EXTREMITIES: no edema. PERIPHERAL PULSES: equal. NEUROLOGIC: No gross deficits, AAO X 3 left forearm erythema Objective Data Active Medications Acetaminophen (Acetaminophen 325 Mg Tablet) 975 mg PO Q6H PRN PRN Reason: Pain, Mild 1-3,fever,headache Last Admin: 11/06/24 21:31 Dose: 975 mg Documented By: GISELE Al Hydroxide/Mg Hydroxide (Magnesium Hydrox/Alum Hydrox 30 Ml Oral.Susp) 15 ml PO Q4H PRN PRN Reason: Indigestion Last Admin: 11/02/24 20:54 Dose: 15 ml Documented By: JAY Allopurinol (Allopurinol 300 Mg Tablet) 300 mg PO BID [facility] Last Admin: 11/07/24 07:52 Dose: 300 mg Documented By: YASMIN Amlodipine Besylate (Amlodipine Besylate 10 Mg Tablet) 10 mg PO DAILY [facility]; Protocol Last Admin: 11/07/24 07:52 Dose: 10 mg Documented By: YASMIN Aspirin (Aspirin 81 Mg Tab.Chew) 81 mg PO DAILY [facility] Last Admin: 11/07/24 08:41 Dose: 81 mg Documented By: ESTEFANY Bismuth Subsalicylate (Bismuth Subsalicylate 262 Mg Tablet) 262 mg PO Q1H PRN PRN Reason: stomache upset Last Admin: 11/05/24 16:26 Dose: 262 mg Documented By: ERMA Doxycycline Monohydrate (Doxycycline Monohydrate 100 Mg Capsule) 100 mg PO Q12H [facility] Stop: 11/10/24 22:01 Last Admin: 11/07/24 08:41 Dose: 100 mg Documented By: ESTEFANY Duloxetine HCl (Duloxetine Hcl 30 Mg Capsule.Dr) 30 mg PO BID [facility] Last Admin: 11/07/24 07:52 Dose: 30 mg Documented By: YASMIN Enoxaparin Sodium (Enoxaparin Sodium 40 Mg/0.4 Ml Syringe) 40 mg SUBCUT Q24H [facility] Last Admin: 11/07/24 07:52 Dose: 40 mg Documented By: YASMIN Furosemide (Furosemide 40 Mg Tablet) 40 mg PO DAILY [facility]; Protocol Last Admin: 11/07/24 07:53 Dose: 40 mg Documented By: YASMIN Insulin Human Lispro (Insulin Lispro 100 Unit/Ml 3 Ml Vial) 0 unit SUBCUT QIDACHS [facility]; Protocol Last Admin: 11/07/24 08:02 Dose: Not Given Documented By: ESTEFANY Non-Admin Reason: No Insulin Coverage Lisinopril (Lisinopril 40 Mg Tablet) 40 mg PO DAILY [facility]; Protocol Last Admin: 11/07/24 07:52 Dose: 40 mg Documented By: YASMIN Loperamide HCl (Loperamide Hcl 2 Mg Capsule) 2 mg PO Q4H PRN PRN Reason: Diarrhea Nystatin (Nystatin Powder 15 Gm Bottle) 1 appl TOPICAL BID [facility]; Protocol Last Admin: 11/07/24 08:41 Dose: 1 appl Documented By: ESTEFANY Sodium Chloride (0.9 % Sodium Chloride Flush 3 Ml Syringe) [facility] Last Admin: 11/07/24 07:53 Dose: 3 ml Documented By: YASMIN Trolamine Salicylate (Trolamine Salicylate 10 % Cream 85 Gm Tube) 1 appl TOPICAL BID PRN; Protocol PRN Reason: Pain, Moderate(Pain Scale 4-6) Vitamin D (Cholecalciferol (Vitamin D3) 25 Mcg Tablet) 25 mcg PO DAILY [facility] Last Admin: 11/07/24 07:53 Dose: 25 mcg Documented By: YASMIN Labs 11/07/24 06:28 11/07/24 06:28 Labs: Laboratory Results - last 24 hr 11/06/24 11/06/24 11/06/24 10:51 15:55 20:47 MCV MCH MCHC RDW Plt Count MPV Absolute Nucleated RBC Nucleated RBC % (auto) Anion Gap Estim Creat Clear Calc Estimated GFR POC Glucose 104 91 94 Random Glucose Calcium 11/07/24 11/07/24 06:28 07:34 MCV 86.4 MCH 25.3 L MCHC 29.2 L RDW 16.7 H Plt Count 356 MPV 9.9 Absolute Nucleated RBC 0.000 Nucleated RBC % (auto) 0.0 Anion Gap 14 Estim Creat Clear Calc 89.1 Estimated GFR > 60 POC Glucose 85 Random Glucose 90 Calcium 9.7 Assessment and Plan (1) Acute sepsis: Status: Acute (2) Pneumonia: Status: Acute Plan 69 M with a history of chronic hypoxic resp failure who was admitted to the ICU for sepsis, acute on chronic resp failure, FOREST, Flu/RSV s/p mech. vent. Acute on chronic hypoxic resp failure and sepsis due to flu/rsv and likely MRSA pneumonia (sputum Cx growing MRSA) completed 7+ days rocephin and azithromycin; started on doxy once MRSA+ cultures noted, continue doxy - total 10d (started 11/01 end 11/10/24) tolerating 4-5L now, continue to wean Diarrhea C diff negative, Imodium p.r.n. ?2-1 block Cardio apprecieted - appears to be mobitz I, no intervention needed NSVT mag = 2, K - 3.7 not on beta christopher due to nikunj follow up cardio LALI peviously on BIPAP at night, d/w Dr. Jacinto -- can continue CPAP, does not need BIPAP at this time; Chronic HFpEF continue with oral lasix Poor appetite improved likely due to acute illness encourage oral intake DM hold orals use sliding scale HTN continue meds morbid obesity impacting his resp status weight loss / diet weakness evaluated by pt -- recs STR which have been sent Full Code DVT pptx, lovenox dispo: STR when bed available Quality Stroke Does the patient have a stroke diagnosis?: No VTE Prior VTE?: No VTE Risk Level:: Medical - moderate - high VTE Device Contraindication: N/A - Device Ordered VTE Drug Contraindication: N/A - Med Ordered
--- NOTE | 2024-11-07 11:02 | P.DS_ITS ---
DS: Providers Provider Date of Service: 11/07/24 Date of admission: 10/26/24 18:32 Date of discharge: 11/07/24 Primary care physician: ALISA Alejandro- Consults: 10/27/24 06:01 Consult to Wound Care Routine Reason for consultation: MASD to buttock/thighs 11/06/24 09:29 Consult to Cardiology Routine Consulting Provider: [facility] Reason for consultation: 2:1 block? Has provider been notified: Yes DS: Diagnosis Discharge Diagnosis (1) Acute sepsis: Status: Acute (2) Pneumonia: Status: Acute DS: Summary Hospital Course Hospital Course: from initial hpi: 69-year-old male with underlying history of CVA in 2020, type 2 diabetes, pulmonary hypertension, diastolic heart failure with preserved ejection fraction per records, no echo on file, hypertension, hyperlipidemia, obstructive sleep apnea on CPAP at night, gout, syncopal episodes, anxiety, chronic kidney disease stage 3, morbid obesity, prior hypoxic respiratory failure episodes due to influenza. Patient presented to the emergency room via EMS due to significant shortness of breath.? Patient had received nitroglycerin and nebulizers by EMS personnel subsequently intubated just prior to arriving to the emergency room.? Reportedly he had an elevated blood pressure at home.?On arrival to the emergency room, the patient had received nitroglycerin paste and drip, Lasix given the suspicion for CHF.? His ABG show pH of 7.29, pCO2 55, P O2 79 on 100% oxygen 10 of PEEP. ?His workup was significant for white count of 21.8, H and H of 11.5 and 39 respectively, platelets 239.? There was no electrolyte abnormality, creatinine 1.49 (baseline 1.28) initial lactic acid 3.7.? Troponin 44.8, BNP 238.? Influenza type B positive and positive RSV. ? Although he was not initially hypotensive he did drop his blood pressure likely due to sedation, he was febrile with a T-max of 101.8 degrees, tachycardic as high as 126 beats per minute. Chest x-ray showed bilateral diffuse infiltrates. ?Patient was treated with 2 g of cefepime, 2.2 L of IV fluid but no more fluid was administered due to concern of CHF. ?Subsequently patient was placed on propofol for sedation Levophed was started, patient was transferred to ICU for further care. hospital course: Patient was originally admitted to the ICU for sepsis and acute on chronic hypoxic and hypercapnic respiratory failure secondary to flu, RSV and MRSA pneumonia further complicated by acute kidney injury. He required intubation, eventually extubated 10/27/2024 and downgraded to medical floor. He completed 7 days of ceftriaxone azithromycin, sputum cultures positive for MRSA so was started on doxycycline which will be completed on 11/10/2024. He was able to be weaned down to 4-5 L, baseline is 3 L. due to debility was seen by physical therapy recommended short-term rehab to which patient will be discharged he was expected require less than 30 days. Course complicated by brief episode diarrhea which was C diff negative improved with Imodium. Also noted to have 2- 1 block on telemetry. Was seen by Cardiology and based on pattern leading up to 2-1 block felt to be Wenckebach, no further intervention needed at this time. Also noted to have 1 short burst of NSVT, electrolytes within normal limits, will not tolerate beta-christopher due to bradycardia. For LALI was initially selena ated with BiPAP and then transitioned to CPAP should continue CPAP at night. For chronic diastolic CHF was continued on Lasix. For diabetes was continued on insulin sliding scale. For hypertension amlodipine was added. For morbid obesity weight loss is recommended. Time Attestation Discharge Coordination Time (in mins): 37 Quality: Safe Use of Opioids Does Pt have an Active Cancer Diagnosis on the Problem List?: No Quality: Stroke Does the patient have a stroke diagnosis?: No Physical Exam Vital Signs: Vital Signs: Last Vital Signs Temp 96.9 F 11/07/24 07:36 Pulse 63 11/07/24 07:36 Resp 16 11/07/24 07:36 BP 133/63 11/07/24 07:36 Pulse Ox 97 11/07/24 07:36 O2 Del Method Nasal Cannula 11/07/24 07:36 O2 Flow Rate 5 11/07/24 07:36 FiO2 32 11/07/24 04:00 BMI result Body Mass Index 48.7 GENERAL APPEARANCE: Obese, on supplemental oxygen. NECK: no carotid bruit, no jugular venous distention. SKIN: no suspicious lesions, warm and dry. HEART: no murmurs, regular rate and rhythm. LUNGS: clear to auscultation bilaterally. ABDOMEN: soft, nontender. EXTREMITIES: no edema. PERIPHERAL PULSES: equal. NEUROLOGIC: No gross deficits, AAO X 3 DS: Data Data Completed and Pending Completed studies during hospitalization [Text1]: Procedures Assistance with Respiratory Ventilation, Less than 24 Consecutive Hours, Continuous Positive Airway Pressure (09/29/23) Labs on day of discharge: Laboratory Results - last 24 hr 11/06/24 11/06/24 11/07/24 15:55 20:47 06:28 WBC 8.5 RBC 3.76 L Hgb 9.5 L Hct 32.5 L MCV 86.4 MCH 25.3 L MCHC 29.2 L RDW 16.7 H Plt Count 356 MPV 9.9 Absolute Nucleated RBC 0.000 Nucleated RBC % (auto) 0.0 Sodium 146 H Potassium 3.7 Chloride 104 Carbon Dioxide 32 H Anion Gap 14 BUN 34 H Creatinine 1.15 Estim Creat Clear Calc 89.1 Estimated GFR > 60 POC Glucose 91 94 Random Glucose 90 Calcium 9.7 11/07/24 07:34 WBC RBC Hgb Hct MCV MCH MCHC RDW Plt Count MPV Absolute Nucleated RBC Nucleated RBC % (auto) Sodium Potassium Chloride Carbon Dioxide Anion Gap BUN Creatinine Estim Creat Clear Calc Estimated GFR POC Glucose 85 Random Glucose Calcium Discharge Plan Discharge Anticipated Discharge Date/Time: 11/07/24 10:59 Patient Disposition: Xfer SNF Discharge Diagnosis: chf, flu, rsv, mrsa pna Referrals: Hernandez Jameson FNP- [Primary Care Provider] - 1 Week Discharge Medications: New amlodipine 10 mg Tablet 10 mg PO DAILY Qty: 0 0RF Protocol: Hold for SBP< HOLD for SBP < : 90 doxycycline monohydrate 100 mg Capsule 100 mg PO Q12H 3 Days Qty: 6 0RF Continued (DME) oxygen continuous 2-3L/min-pt needs portable tanks-appropriate # to allow him to attend appts. See Rx Instructions .Route .MEDSUPPLY Qty: 1 0RF Rx Instructions: As directed duloxetine 30 mg capsule,delayed release(DR/EC) 30 mg PO BID Qty: 180 1RF allopurinol 300 mg tablet 300 mg PO BID 90 Days Qty: 180 1RF lisinopril 40 mg tablet 40 mg PO DAILY Qty: 90 1RF metformin 500 mg tablet 500 mg PO BID Qty: 180 1RF furosemide 40 mg tablet 40 mg PO DAILY Qty: 90 1RF aspirin 81 mg Tablet,Chewable 81 mg PO DAILY cholecalciferol (vitamin D3) [Vitamin D3] 25 mcg (1,000 unit) Tablet 25 mcg PO DAILY Discontinued atorvastatin 80 mg tablet 80 mg PO DAILY Qty: 90 1RF Discharge Orders: Discharge Order (Routine); Ordered 11/07/24 Ordered By: Rian Waller Diet: Advance to usual diet Activity on Discharge: As tolerated Stand Alone Forms: Patient Portal Discharge page Print Language: Paraguayan Care Plan Goals: recovery Health Concerns: flu, rsv, mrsa pna, chf, lali, mobitz 1 Plan of Treatment: 3 more days of doxy, started amlodipine, use cpap at night, rehab Assessment: see above
[2024-11-07 11:05] VITALS: BP 137/64; PULSE 66; RESP 16; TEMP 36.3; O2SAT 95
--- NOTE | 2024-11-07 11:14 | PM.PNCARD ---
Subjective Subjective Date of Service: 11/07/24 Interval history: Seen and examined at bedside. Continues to be asymptomatic. Telemetry is showing Mobitz type 1 alternating with 2:1 block. Physical Exam Vital Signs: Last Vital Signs Temp 97.3 F 11/07/24 11:05 Pulse 66 11/07/24 11:05 Resp 16 11/07/24 11:05 BP 137/64 11/07/24 11:05 Pulse Ox 95 11/07/24 11:05 O2 Del Method Nasal Cannula 11/07/24 11:05 O2 Flow Rate 3 11/07/24 11:05 FiO2 32 11/07/24 04:00 BMI result Body Mass Index 48.7 GENERAL APPEARANCE: Obese, on supplemental oxygen. NECK: no carotid bruit, no jugular venous distention. SKIN: no suspicious lesions, warm and dry. HEART: no murmurs, regular rate and rhythm. Bradycardic. LUNGS: clear to auscultation bilaterally. ABDOMEN: soft, nontender. EXTREMITIES: no edema. PERIPHERAL PULSES: equal. NEUROLOGIC: No gross deficits, AAO X 3 Objective Labs and Meds 11/07/24 06:28 11/07/24 06:28 Lab results: Laboratory Results - last 24 hr 11/06/24 11/06/24 11/07/24 15:55 20:47 06:28 WBC 8.5 RBC 3.76 L Hgb 9.5 L Hct 32.5 L MCV 86.4 MCH 25.3 L MCHC 29.2 L RDW 16.7 H Plt Count 356 MPV 9.9 Absolute Nucleated RBC 0.000 Nucleated RBC % (auto) 0.0 Sodium 146 H Potassium 3.7 Chloride 104 Carbon Dioxide 32 H Anion Gap 14 BUN 34 H Creatinine 1.15 Estim Creat Clear Calc 89.1 Estimated GFR > 60 POC Glucose 91 94 Random Glucose 90 Calcium 9.7 11/07/24 07:34 WBC RBC Hgb Hct MCV MCH MCHC RDW Plt Count MPV Absolute Nucleated RBC Nucleated RBC % (auto) Sodium Potassium Chloride Carbon Dioxide Anion Gap BUN Creatinine Estim Creat Clear Calc Estimated GFR POC Glucose 85 Random Glucose Calcium Progress Note: A&P Assessment and plan (1) Bradycardia: Status: Acute (2) Respiratory syncytial virus (RSV): Status: Acute (3) Influenza: Status: Acute Plan 69-year-old gentleman with respiratory failure in the setting of RSV and influenza who was in the ICU but now on IMC. Telemetry showing AV Wenckebach and two-to-one block. Clearly has AV Wenckebach alternating with two-to-one block occasionally. He is completely asymptomatic. I asked him to do some leg raises while laying in recliner and after few seconds his heart rate went up to 70s. He has a first-degree AV block on his EKG all the time. I think we continue to monitor him-no obvious indication for pacemaker currently. As he improves further I would ambulate him to reassess his heart rate response to exercise. Avoid all AV harjinder blockers. If no diarrhea then loperamide PRN should also be discontinued. We will follow along with you. Thank you for allowing me to participate in the care of your patient. Please feel free to contact me if you have any questions. Time Spent With Patient Time: Total time managing care of this patient today ____ minutes. Progress Note: Quality Stroke Does the patient have a stroke diagnosis?: No Procedures Date of Service Date of Service: 11/07/24
[2024-11-07 11:18] LABS: Glucose, Whole Blood 83 mg/dL (60-115)
--- NOTE | 2024-11-07 11:34 | MHC.CM.PN ---
CM approached pt. with IMM re: DC to STR at [facility]. Pt said he refuses to go there, that he had been there before. CM reviewed chart and found that Pt. was not at [facility], but at [facility] before and did not like it. CM explained this to pt. he then said he needs to talk with his . CM will follow up after he does so.
--- NOTE | 2024-11-07 11:49 | MHC.CM.PN ---
IMM 11/07/24, pt. spoke to his , and she confirmed that [facility] is not the place that he was at before, and so he agrees to go, he will go via BLS this afternoon.
== END 2024-11-07 13:34 | disposition skilled nursing facility (03) | DRG 871 ==
LOC: HO.ED 18:00 → HO.EDOVER 18:33 → HO.ICU 18:38 → HO.IMC 10-31 15:22
PROVIDERS: Family Medicine; Internal Medicine Critical Care Medicine; Physician Assistant Medical; Registered Nurse Community Health; Student in an Organized Health Care Education/Training Program; Admitting Provider Internal Medicine Pulmonary Disease; Emergency Provider Emergency Medicine Emergency Medical Services; PCP Nurse Practitioner Family; Visit Provider Internal Medicine
DX: A41.9 Sepsis, unspecified organism (principal); J10.08 Influenza due to other identified influenza virus with other specified pneumonia; J12.1 Respiratory syncytial virus pneumonia; J96.21 Acute and chronic respiratory failure with hypoxia; J96.22 Acute and chronic respiratory failure with hypercapnia; J15.212 Pneumonia due to Methicillin resistant Staphylococcus aureus; I50.32 Chronic diastolic (congestive) heart failure; N17.9 Acute kidney failure, unspecified; E87.21 Acute metabolic acidosis; Z68.42 Body mass index [BMI] 45.0-49.9, adult; B37.2 Candidiasis of skin and nail; I27.29 Other secondary pulmonary hypertension; I50.812 Chronic right heart failure; I44.0 Atrioventricular block, first degree; E66.01 Morbid (severe) obesity due to excess calories; G47.33 Obstructive sleep apnea (adult) (pediatric); L89.152 Pressure ulcer of sacral region, stage 2; Z71.3 Dietary counseling and surveillance; I11.0 Hypertensive heart disease with heart failure; Z99.81 Dependence on supplemental oxygen; Z86.73 Personal history of transient ischemic attack (TIA), and cerebral infarction without residual deficits; Z79.82 Long term (current) use of aspirin; Z79.84 Long term (current) use of oral hypoglycemic drugs; Z79.899 Other long term (current) drug therapy
CPT/HCPCS: 0241U; 36415; 71045; 80048; 80053; 80076; 81001; 82040; 82310; 82803; 82947; 83605; 83690; 83735; 83880; 84100; 84439; 84443; 84484; 85007; 85025; 85027; 85610; 85730; 87040; 87070; 87077; 87186; 87205; 87493; 93005; 93306; 94002; 94003; 94640; 94660; 94799; 97162; 97530; 99284; C1758; J0131; J0456; J0613; J0692; J0696; J1200; J1644; J1650; J1920; J1940; J2060; J2305; J2704; J3010; J3475; P9047

== ENCOUNTER → 2024-10-26 16:15 | Outpatient (BNV) | payer OTHER, SELFPAY | PROVIDERS: Emergency Provider Emergency Medicine Emergency Medical Services; Visit Provider Radiology Diagnostic Radiology | DX: R91.8 Other nonspecific abnormal finding of lung field (principal); R06.02 Shortness of breath; Z93.1 Gastrostomy status | CPT/HCPCS: 71045 ==

== ENCOUNTER → 2024-10-26 16:16 | Outpatient (BNV) | payer MEDICARE, SELFPAY | PROVIDERS: Admitting Provider Internal Medicine Pulmonary Disease; Emergency Provider Emergency Medicine Emergency Medical Services; PCP Nurse Practitioner Family; Visit Provider Internal Medicine Cardiovascular Disease | DX: R94.31 Abnormal electrocardiogram [ECG] [EKG] (principal) | CPT/HCPCS: 93010 ==

== ENCOUNTER 2024-10-26 18:32 | Outpatient (BNV) | payer MEDICARE, SELFPAY | END 2024-10-29 05:18 | PROVIDERS: Admitting Provider Internal Medicine Pulmonary Disease; Emergency Provider Emergency Medicine Emergency Medical Services; PCP Nurse Practitioner Family; Visit Provider Internal Medicine Cardiovascular Disease | DX: R94.31 Abnormal electrocardiogram [ECG] [EKG] (principal) | CPT/HCPCS: 93010 ==

== ENCOUNTER → 2024-10-26 18:32 | Outpatient (BNV) | payer MEDICARE, SELFPAY | PROVIDERS: Admitting Provider Internal Medicine Pulmonary Disease; Emergency Provider Emergency Medicine Emergency Medical Services; PCP Nurse Practitioner Family; Visit Provider Internal Medicine Pulmonary Disease | DX: J96.01 Acute respiratory failure with hypoxia (principal); J11.1 Influenza due to unidentified influenza virus with other respiratory manifestations; I50.30 Unspecified diastolic (congestive) heart failure; I50.810 Right heart failure, unspecified; J18.9 Pneumonia, unspecified organism; G47.33 Obstructive sleep apnea (adult) (pediatric); E66.01 Morbid (severe) obesity due to excess calories | CPT/HCPCS: 99233; 99291 ==

== ENCOUNTER → 2024-10-26 18:32 | Outpatient (BNV) | payer MEDICARE, SELFPAY | PROVIDERS: Admitting Provider Internal Medicine Pulmonary Disease; Emergency Provider Emergency Medicine Emergency Medical Services; PCP Nurse Practitioner Family; Visit Provider Physician Assistant Medical | DX: J96.01 Acute respiratory failure with hypoxia (principal); J18.9 Pneumonia, unspecified organism; G47.33 Obstructive sleep apnea (adult) (pediatric) | CPT/HCPCS: 99223 ==

== ENCOUNTER → 2024-10-26 18:32 | Outpatient (BNV) | payer MEDICARE, SELFPAY | PROVIDERS: Admitting Provider Internal Medicine Pulmonary Disease; Emergency Provider Emergency Medicine Emergency Medical Services; PCP Nurse Practitioner Family; Visit Provider Internal Medicine Cardiovascular Disease | DX: B33.8 Other specified viral diseases (principal); J11.1 Influenza due to unidentified influenza virus with other respiratory manifestations; R00.1 Bradycardia, unspecified | CPT/HCPCS: 99223 ==

== ENCOUNTER → 2024-10-26 18:32 | Outpatient (BNV) | payer MEDICARE, SELFPAY | PROVIDERS: Admitting Provider Internal Medicine Pulmonary Disease; Emergency Provider Emergency Medicine Emergency Medical Services; PCP Nurse Practitioner Family; Visit Provider Family Medicine | DX: A41.9 Sepsis, unspecified organism (principal); J18.9 Pneumonia, unspecified organism | CPT/HCPCS: 99232 ==

== ENCOUNTER 2025-04-09 17:07 | Inpatient (IN) | payer MEDICARE, SELFPAY ==
[2025-04-09] VITALS (7 sets, daily range): BP systolic 149–187; BP diastolic 70–111; PULSE 51–80; RESP 18–29; TEMP 36.7–37.1; O2SAT 90–96; BMI 52.3
--- NOTE | 2025-04-09 | ECG_ITS ---
Test Reason : sob Blood Pressure : */* mmHG Vent. Rate : 63 BPM Atrial Rate : * BPM P-R Int : * ms QRS Dur : 112 ms QT Int : 422 ms P-R-T Axes : * 128 -62 degrees QTcB Int : 431 ms Atrial fibrillation Right axis deviation Nonspecific ST abnormality Abnormal QRS-T angle, consider primary T wave abnormality Abnormal ECG When compared with ECG of 29-Oct-2024 05:18, QRS axis Shifted right T wave inversion no longer evident in Anterolateral leads Referred By: Generic ED Physician Electronically Signed By: Giacomo Campbell
--- NOTE | ~2025-04-09 | CT_ITS ---
CLINICAL HISTORY: difficulty urinating, elevated Cr, r o obstruction CT abdomen and pelvis without contrast Comparison: CT/REG/SR - CT ABDOMEN PELVIS W IV CON - 11/19/23 09:11 EST Findings: Severe cardiomegaly. Patchy ground-glass opacities of lung bases as well as small left pleural effusion concerning for CHF/fluid overload. Unremarkable gallbladder and solid organs. No urolithiasis. No hydronephrosis. Moderate nonspecific bilateral perinephric stranding. No bowel obstruction, pneumoperitoneum, or pneumatosis. Urinary bladder is mostly contracted with an indwelling urinary catheter. Normal appendix. The bones are intact. Lower abdominal wall/pannus moderate fat stranding/ edema. Moderate to severe multilevel spondylosis of the visualized thoracolumbar spine. IMPRESSION: No acute findings. Severe cardiomegaly. Patchy ground-glass opacities of the lung bases as well as small left pleural effusion concerning for fluid overload/CHF. No hydronephrosis or nephrolithiasis. Urinary bladder is mostly contracted with an indwelling urinary catheter. Nonspecific moderate perinephric stranding. Ascending urinary tract infection can not be excluded. Correlate with urinalysis. Anterior lower abdominal wall/pannus moderate fat stranding, may represent edema related to fluid overload or panniculitis. Moderate to severe multilevel spondylosis of the visualized thoracolumbar spine. This document has been electronically signed by: Trace Reece MD on 04/09/2025 22:17:56
--- NOTE | ~2025-04-09 | XR_ITS ---
CLINICAL HISTORY: sob --- Additional Notes or Special Instructions: check back at 1740 DG 1 view chest x-ray Comparison: CR - XR CHEST 1V - 10/26/24 20:16 EST Findings: Low lung volume. Suspected small bilateral pleural effusions, left more than right. Mild diffuse interstitial prominence in both lungs. Normal size heart. No acute fracture. IMPRESSION: Low lung volume. Suspected small bilateral pleural effusions, left more than right. Mild diffuse interstitial prominence in both lungs. Findings may represent fluid overload. This document has been electronically signed by: Trace Reece MD on 04/09/2025 19:21:32
[2025-04-09 17:40] LABS: MANUAL DIFF FLAG NO
[2025-04-09 17:47] LABS: VBG HCO3 42 mmol/L (22-26); VBG O2 % Saturation 72.0 %
[2025-04-09 17:47] LABS: Venous Blood Gas Refer to POC result
[2025-04-09 17:50] LABS: Hematocrit 34.3 % (42.0-52.0); Hemoglobin 9.5 g/dl (14.0-18.0); Imm Gran Abs Auto 0.05 X10*3/uL (0.00-0.03); Imm Gran Pct Auto 0.6 % (0.0-0.4); Lymphocytes Absolute Auto 1.1 X10*3/uL (1.2-4.9); Mean Corpuscular HGB Conc 27.7 g/dl (31.0-36.0); Mean Corpuscular Hemoglobin 23.8 pg (27.0-33.0); Mean Corpuscular Volume 85.8 fL (80.0-98.0); NRBC Abs Auto 0.000 X10*3/uL (0.0-0.012); NRBC Pct Auto 0.0 /100WBC (0.0-0.2); Platelet Count 292 X10*3/uL (160-400); Red Blood Count 4.00 X10*6/uL (4.60-5.80); White Blood Count 8.8 X10*3/uL (4.8-10.8)
[2025-04-09 17:57] LABS: Alanine Aminotransferase 15 U/L (0-40); Albumin Level 3.9 g/dL (3.5-5.0); Alkaline Phosphatase 83 U/L (39-117); Anion Gap 17 (12-20); Aspartate Amino Transferase 26 U/L (5-37); Blood Urea Nitrogen 19 mg/dL (9-16); Calcium 9.4 mg/dL (8.4-10.2); Carbon Dioxide 32 mmol/L (22-29); Chloride 100 mmol/L (96-108); Creatinine Clr Calc Pharmacy 58.7; Estimated Glomerular Filt Rate 41; Magnesium 2.3 mg/dL (1.6-2.6); Potassium 3.2 mmol/L (3.3-5.1); Sodium 146 mmol/L (135-145); Total Protein 7.7 g/dL (6.5-8.0)
[2025-04-09 18:01] LABS: B Type Natriuretic Peptide 673 pg/mL (<100)
[2025-04-09 18:04] LABS: Troponin-I High Sensitivity 54.1 ng/L (<3.5-35.0)
--- OUTSIDE RECORDS SUMMARY | 2025-04-09 18:06 | XMS_ITS | Clinical Summary ---
Author Organization [facility] Address [address] [place] [address] Care Team Providers Care Javascript Ui Developer Name Role Phone Unavailable Primary Care Provider Unavailabl e Allergies No known active allergies Medications atorvastatin (LIPITOR) 80 MG tablet Take 1 tablet (80 mg total) by mouth daily. 09/08/2023 Active DULoxetine (CYMBALTA) 30 MG capsule Take 1 capsule (30 mg total) by mouth 2 (two) times a day. 10/30/2023 Active furosemide (LASIX) 40 MG tablet Take 1 tablet (40 mg total) by mouth daily. 11/02/2023 Active lisinopril (PRINIVIL,ZeSTR IL) 40 MG tablet Take 1 tablet (40 mg total) by mouth daily. 10/01/2023 Active metFORMIN (GLUCOPHAGE) 500 MG tablet Take 1 tablet (500 mg total) by mouth 2 (two) times a day with meals. Active aspirin enteric coated (ECOTRIN LOW STRENGTH) 81 MG EC tablet Take 1 tablet (81 mg total) by mouth daily. Active carvedilol (COREG) 6.25 MG tabletIndicatio ns:Acute on chronic right-sided heart failure (HCC) Take 1 tablet (6.25 mg total) by mouth 2 (two) times a day with meals. 60 tablet 11/24/2023 Active OxygenIndicatio ns:Acute on chronic right-sided heart failure (HCC),LALI on CPAP 2-3 L NC OXYGEN 11/24/2023 Active Active Problems Problem Noted Date Diagnosed Date MSSA (methicillin susceptibl e Staphylococcus aureus) pneumonia 11/21/2023 DM (diabetes mellitus), type 2 11/20/2023 Hypertriglyceridemia 11/20/2023 1st degree AV block 11/20/2023 Acute hypoxemic respiratory failure 11/19/2023 Acute on chronic right-sided heart failure 11/19 Primary hypertension 11/19/2023 Mixed hyperlipidemia 11/19/2023 LALI on CPAP 11/19/2023 Acute on chronic respiratory failure with hyperc apnia 11/19/2023 Resolved Problems Problem Noted Date Diagnosed Date Resolved Date Pneumonia of right lower lob e due to infectious organism 11/19/2023 08/30/2024 Social History Tobacco Use Types Packs/Day Years Used Date Smoking Tobacco: Never Smokeless Tobacco: Never Tobacco Cessation:Counseling Given: Not Answered [facility] Utilities Answer Date Recorded In the past 12 months has th e electric, gas, oil, or water company threatened to shut off services in your home? No 11/22/2023 Social Connection and Isolation Panel [NHANES] A nswer Date Recorded Frequency of Communication with Friends and Fami ly Not on file 11/22/2023 Frequency of Social Gatherings with Friends and Family Not on file 11/22/2023 Attends [employer] Services Not on file 11/22 Active Member of Clubs or Organizations Not on f ile 11/22/2023 Attends Club or Organization Meetings Not on trixie e 11/22/2023 Are you , , di vorced, , never , or living with a partner? 11/22/2023 AUDIT-C Answer Date Recorded Q1: How often do you have a drink containing alcohol? Never 11/19/2023 Q2: How many drinks containi ng alcohol do you have on a typical day when you are drinking? Patient does not drink Q3: How often do you have si x or more drinks on one occasion? Never 11/19/2023 Overall Financial Resource Strain (CARDIA) Answe r Date Recorded How hard is it for you to pa y for the very basics like food, housing, medical care, and heating? Not hard at all 11/22/2023 Hunger Vital Sign Answer Date Recorded Within the past 12 months, y ou worried that your food would run out before you got the money to buy more. Never true 11/22/19 24 Within the past 12 months, t he food you bought just didn't last and you didn't have money to get more. Never true 11/22/2023 PRAPARE - Transportation Answer Date Re corded In the past 12 months, has l ack of transportation kept you from medical appointments or from getting medications? Yes 11/04 In the past 12 months, has l ack of transportation kept you from meetings, work, or from getting things needed for daily living? No 11/22/2023 Housing Stability Vital Sign Answer Cam e Recorded In the last 12 months, was t here a time when you were not able to pay the mortgage or rent on time? No 11/22/2023 In the last 12 months, how many places have you lived? 1 11/22/2023 In the last 12 months, was t here a time when you did not have a steady place to sleep or slept in a fci (including now)? No 11/22/2023 Sex and Gender Information Value Date Recorded Sex Assigned at Male 11/19/2023 2:24 PM EST Legal Sex Male 6:21 PM EST Gender Identity Male 11/19/2023 2:24 PM EST Sexual Orientation Heterosexual (straight) 11/19 2:24 PM EST Last Filed Vital Signs Vital Sign Reading Time Taken Comments Blood Pressure 135/80 11/25/2023 7:00 AM EST Pulse 67 11/25/2023 8:52 AM EST Temperature 36.4 C (97.6 F) 11/25/2023 7:00 AM EST Respiratory Rate 24 11/25/2023 7:00 AM EST Oxygen Saturation 96% 11/25/2023 7:00 AM EST Inhaled Oxygen Concentration - - Weight 147 kg (323 lb 3.1 oz) 11/24/2023 6:00 AM EST Height 170.2 cm (5' 7 ) 11/22/2023 12:04 PM EST Body Mass Index 50.62 11/22/2023 12:04 PM EST Plan of Treatment Health Maintenance Due Date Last Done Comments Hepatitis C Virus Screening 1954 Ophthalmology Exam 1964 DTaP/Tdap/Td Vaccines (1 - Tdap) 1973 Pneumococcal Vaccines 50+ (1 of 2 - PCV) 1973 Colonoscopy 1999 Zoster (Shingles) Vaccine (1 of 2) 2004 RSV Vaccine 60 years and older and Patients (1 - Risk 60-74 years 1-dose series) 2014 Hemoglobin A1C 05/20/2024 11/20/2023 COVID-19 Vaccine (2023- season) 2024 Lipid Panel 11/20/2024 11/20/2023 Foot Exam 11/23/2024 11/23/2023, 11/05, 11/22/2023, Additional history exists Creatinine with GFR 11/25/2024 11/25/2023, 11/24/2023, 11/23/2023, Additional history exists Influenza Vaccine 05/04/2025 Hepatitis B Vaccines Aged Out No long er eligible based on patient's age to complete this topic Procedures Procedure Name Priority Date/Time Associated Diagnosis Comments BASIC METABOLIC PANEL Routine 11/25/2023 4:56 AM EST HEMOGLOBIN A1C WITH ESTIMATED AVERAGE GLUCOSE Routine 11/20/2023 6:36 AM EST LIPID PANEL Routine 11/20/2023 6:36 AM EST from Last 3 Months or Most Recently Relevant to Health Maintenance Results * (ABNORMAL) BASIC METABOLIC PANEL (11/25/2023 4:56 AM EST) Glucose 86 74 - 106 mg/dL 11/25/2023 6:40 AM [facility] Comment:Fasting: <100 mg/dL, Non-Fasting: <200 mg/dL (ADA 2005) Blood Urea Nitrogen (BUN) 24(H) 9 - 23 mg/dL 11/25/2023 6:40 AM [facility] Creatinine 1.2 0.7 - 1.3 mg/dL 11/25/2023 6:40 AM [facility] eGFR 65 >59 11/25/2023 6:40 AM [facility] Comment:CKD-EPI (2020) in mL /min/1.73 sq meters. Sodium 141 136 - 145 mmol/L 11/25/2023 6:40 AM [facility] Potassium 3.2(L) 3.4 - 4.5 mmol/L 11/25/2023 6:40 AM EST [facility] Chloride 104 98 - 107 mmol/L 11/25/2023 6:40 AM EST [facility] CO2 29 20 - 31 mmol/L 11/25/2023 6:40 AM EST [facility] Anion Gap 8 5 - 15 11/25/2023 6:40 AM EST [facility] Calcium 9.2 8.7 - 10.5 mg/dL 11/25/2023 6:40 AM EST [facility] BUN/Creatinine Ratio 20 10.0 - 25.0 Ratio 11/25/2023 6:40 AM EST [facility] Blood specimen (specimen) (Plasma/Serum) 11/25/2023 4:56 AM EST 11/25/2023 5:52 AM EST Cindy Garcia MD LAB BLOOD ORDERABLES Final Result [facility] [address] [place] [address], * (ABNORMAL) Hemoglobin A1c with Estimated Average Glucose (11/20/2023 6:36 AM EST) Hemoglobin A1C 6.1(H) <5.7 % 11/20/2023 1:20 PM [facility] Comment: A1c% Interpretation 5.7 - 6.0 Increase risk of diabetes 6.1 - 6.4 Higher risk of diabetes > or = 6.5 Consistent with diabetes Diabetes Care, 33(Supp 1):S1-S61, 2010 Estimated Average Glucose 128 mg/dL 11/20/2023 1:20 PM [facility] Blood specimen (specimen) Blood specimen / Unknown 11/20/2023 6:36 AM EST 11/20/2023 7:09 AM EST Arnaldo Mars PA-C LAB BLOOD ORDERABLES Final R esult Performing Organization Address City/[facility]/ZIP Co de Phone Number [place] [phone], [address] [address] * (ABNORMAL) Lipid Panel (Early AM) (11/20/2023 6:36 AM EST) Cholesterol, Total 117 <200 mg/dL 2023 7:44 AM EST [facility] Triglycerides 208(H) <150 mg/dL 11/20/2023 7:44 AM EST [facility] Cholesterol, HDL 32(L) >60 mg/dL 11/20/19 7:44 AM EST [facility] Estimated LDL 43 <130 mg/dL 11/20/2023 7:44 AM EST [facility] Comment: NCEP Guidelines: < 100 mg/dL Optimal 100 - 129 mg/dL Near Optimal/Above Optimal 130 - 159 mg/dL Borderline High 160 - 189 mg/dL High >/= 190 mg/dL Very High Cholesterol/HDL Ratio 3.7 0.0 - 5.0 Ratio 11/20/2023 7:44 AM EST [facility] Comment: Relative Risk Ratio - Male Ratio - Female 0.5 3.4 3.3 1.0 5.0 4.4 2.0 9.6 7.1 3.0 23.4 11.0 Blood specimen (specimen) (Plasma/Serum) 11/20/2023 6:36 AM EST 11/20/2023 7:09 AM EST Arnaldo Mars PA-C LAB BLOOD ORDERABLES Final R esult [facility] [address] [place] [address], from Last 3 Months or Most Recently Relevant to Health Maintenance [place] [id number] [facility] MEDICARE Advance Directives * Full Code (Latest Code Status on File) Date Activated Date Inactivated Comments 11/19/2023 2:41 PM
--- OUTSIDE RECORDS SUMMARY | 2025-04-09 18:06 | XMS_ITS | Encounter Summary ---
Author Organization [facility], Address [address] [facility] [address] [place] [address] Phone Care Team Providers Care Etcher Photoengraving Name Role Phone Hernandez Jameson NP Primary Care Provider [phone] Encounter Details Date Type Department Care Team (Late st Contact Info) Description 11/30/2022 Documentation Only [facility], [address] [place] [address] Jimbo Cruz MD [address] [place] [address] Social History Tobacco Use Types Packs/Day Years Used Date Smoking Tobacco: Never Alcohol Use Standard Drinks/Week Comments No 0 (1 standard drink = 0.6 oz pur e alcohol) Sex and Gender Information Value Date Recorded Sex Assigned at Not on file Legal Sex Male 1:49 PM EDT Gender Identity Not on file Sexual Orientation Not on file documented as of this encounter Plan of Treatment Not on file documented as of this encounter Visit Diagnoses Not on filedocumented in this encounter Care Teams Etcher Photoengraving Relationship Specialty Start Date End Date Hernandez Jameson NP 1962 [address] [place] [id number] PCP - General Nurse Practitioner 07/10/20 documented as of this encounter
--- OUTSIDE RECORDS SUMMARY | 2025-04-09 18:06 | XMS_ITS ---
Author Name [facility] Organization Unknown History of Medication Use Medication Directions Dispensed Refills Start Date End Date Stat us Oxygen 2-3 L NC OXYGEN 11/24/2023 activ e lisinopril (PRINIVIL,ZeSTRIL) 40 MG tablet Take 1 tablet (40 mg total) by mouth daily. 10/01/2023 active aspirin enteric coated (ECOTRIN LOW STRENGTH) 81 MG EC tablet Take 1 tablet (81 mg total) by mouth daily. active metFORMIN (GLUCOPHAGE) 500 MG tablet Take 1 tablet (500 mg total) by mouth 2 (two) times a day with meals. active Problems Problem Status Onset Date Problem Type Date of Resolution Source Mixed hyperlipidemia active 2023-11-19 ProblemAct [facility] Acute on chronic right-sided heart failure active 2023-11-19 ProblemAct [facility] CCT Pneumonia of right lower lobe due to infectious organism active 2023-11-19 ProblemAct [facility] FOREST (acute kidney injury) (HCC) active EncounterDiagnosisAct [facility] 1st degree AV block active 2023-11-20 ProblemAct [facility] MSSA (methicillin susceptible Staphylococcus aureus) pneumonia active 2023-11-21 ProblemAct [facility] Acute hypoxemic respiratory failure active 2023-11-19 ProblemAct [facility] Acute on chronic respiratory failure with hypercapnia active 2023-11-19 ProblemAct [facility] Primary hypertension active 2023-11-19 ProblemAct [facility] Hypertriglyceridemia active 2023-11-20 ProblemAct [facility] LALI on CPAP active 2023-11-19 ProblemAct [facility] DM (diabetes mellitus), type 2 active 2023-11-20 ProblemAct [facility] Encounters Encounter Type Encounter Reason Primary Diagnosis Location Date Inpatient Acute on chronic right heart failure Acute on chronic right heart failure [facility] [facility] 11/19/2023 [facility] 11/19/2023 [facility] 11/19/2023 [facility] 11/19/2023 Ambulatory [facility] 11/19/2023 Care Team Organization Name Specialty Phone Email Start Date End [facility] [employer] 11/19/2023 12/20/2024 [facility] 11/19/2023
[2025-04-09 18:18] LABS: Resp Syncy Virus RNA Qual PCR NEGATIVE (Negative); SARS COV2 PCR INHOUSE NEGATIVE (Negative)
--- NOTE | 2025-04-09 19:10 | ED_ITS ---
HPI - SOB/Dyspnea General Chief Complaint: Dyspnea Stated Complaint: LACK OF BREATHING, LACK OF URINATION Time Seen by Provider: 04/09/25 17:43 Source: patient and EMS Mode of arrival: EMS Limitations: no limitations History of Present Illness ED Provider: Dr. Юлия Guevara HPI Narrative: patient comes to the emergency room complaining of increased shortness of breath him bilateral lower extremity edema for about a week. Patient states that he usually uses 3 L of oxygen p.r.n. for shortness of breath. However, with the last week he has been using it continuously 24 hours a day. Patient states that with minimal exertion he feels significantly short of breath. Denies any chest pain. When EMS arrived, patient had oxygen saturation of 90% on 3 L and seem short of breath. Patient was placed on 6 L. his to his knowledge, patient denies any fever, denies any cough or URI. Patient states that he is compliant with his medications, currently taking Related Data Home Medications ?Medication ?Instructions ?Recorded ?Confirmed aspirin 81 mg chewable tablet 81 mg PO DAILY 09/29/23 10/26/24 cholecalciferol (vitamin D3) 25 25 mcg PO DAILY 10/26/24 mcg (1,000 unit) tablet (Vitamin D3) Previous Rx's ?Medication ?Instructions ?Recorded oxygen continuous 2-3L/min-pt #1 ea 12/06/23 needs portable tanks-appropriate # to allow him to attend appts. amlodipine 10 mg tablet 10 mg PO DAILY #0 tabs 11/07 doxycycline monohydrate 100 mg 100 mg PO Q12H 3 days # 6 caps 11/07/24 capsule allopurinol 300 mg tablet 300 mg PO BID 90 days #180 t abs 12/07/24 duloxetine 30 mg capsule,delayed 30 mg PO BID #180 cap s 01/08/25 release metformin 500 mg tablet 500 mg PO BID for diabetes 0 01/11/25 mellitus #180 tabs lisinopril 40 mg tablet 40 mg PO DAILY #90 tabs 11/28 furosemide 40 mg tablet 40 mg PO DAILY #90 tabs 12/26 Allergies Allergy/AdvReac Type Severity Reaction Status Date / Time No Known Allergies Allergy Verified 04/09/25 17:17 Review of Systems 2 Review of Systems: Constitutional : No Weight loss, No Fever, No Chills, No Night Sweats, No Fatigue, No Malaise ENT/Mouth : No Hearing loss, No Ear Pain, No Nasal Congestion, No Sinus Pain, No Hoarseness, No sore throat, No Rhinorrhea, No Swallowing Difficulty Eyes: No Eye Pain, No Swelling, No Redness, No Foreign Body, No Discharge, No Vision Changes Cardiovascular : No Chest Pain, Complaining of shortness of breath at rest and with exertion, worsening orthopnea and worsening lower extremity edema Respiratory : No Cough, No Sputum, No Wheezing, No Smoke Exposure, No Dyspnea Gastrointestinal : No Nausea, No Vomiting, No Diarrhea, No Constipation, No abdominal Pain, No Hematochezia, No Melena Genitourinary : no irregular bleeding, No Dysuria, No Urinary Frequency, No Hematuria, No Urinary Incontinence, No Urgency, No Flank Pain, No Urinary Flow Changes, No Hesitancy Musculoskeletal : No joint pain, No Myalgias, No Joint Swelling Skin : No Skin Lesions, No rash Neuro : No Weakness, No Numbness, No Paresthesias, No Loss of Consciousness, No Dizziness, No Headache Psych : No Anxiety/Panic, No Depression, No SI/HI/AH/VH, No Social Issues, Heme/Lymph: No Bruising, No Bleeding,No Lymphadenopathy Endocrine : No Polyuria, No Polydipsia, No Temperature Intolerance PMFSH Past Medical History Medical History Screening PSA (prostate specific antigen) Morbid obesity Elevated serum creatinine Right heart failure Leg pain FOREST (acute kidney injury) Leukocytosis LALI (obstructive sleep apnea) Hyperlipidemia HTN (hypertension) Diastolic heart failure Newly diagnosed diabetes Acute gout of left foot Chronic fatigue Pulmonary arterial hypertension Cerebrovascular accident (CVA) Surgical History Hx of shoulder surgery No pertinent past surgical history Family History Family History Father Blood clot in vein Mother Cancer Social History Social History Household Members: Unknown / Unable to assess Housing: Unknown / Unable to assess Do you presently have visiting nurse or other home services: No Unable to assess alcohol history related to: Unable to respond Alcohol intake: former Patient Tobacco Use Status: Never used Tobacco Years Smoked: nonsmoker Use of substances other than those prescribed or required for medical reasons: No Substance Use Type: Unknown Advance Directives: Yes Advance Directives on File: Yes Advance Directives Date on File: 12/03/20 Do you have a plan to hurt others: No Plan service: No Current occupational status: unemployed Physical Exam 2 Vital Signs: Vital Signs: Last Vital Signs Temp 97.7 F 04/10/25 02:17 Pulse 67 04/10/25 02:17 Resp 18 04/10/25 02:17 BP 132/51 L 04/10/25 02:17 Pulse Ox 95 04/10/25 02:17 O2 Del Method Oxymask 04/10/25 02:17 O2 Flow Rate 5 04/10/25 02:17 Oxygen Flow Rate 6 04/09/25 17:10 BMI result Body Mass Index 52.3 Const: Other: Appearance: Alert. Oriented X3. seems uncomfortable Eyes: Pupils equal, round and reactive to light. ENT: Pharynx normal. Neck: Normal inspection. Neck supple. No lymph nodes noted. No crepitus CVS: Normal heart rate and rhythm. Pulses normal. Normal S1 and S2 Respiratory: a bit tachypneic, respiratory rate in the mid-twenties. Bilateral crackles Abdomen: Soft and nontender. No rigidity. No distention. Skin: Skin warm and dry. Normal skin color. Normal skin turgor. Extremities: +2 pitting edema bilaterally, erythematous patch on the spencer on the left leg, not significantly tender to touch Neuro: Oriented X 3. No motor deficit. No sensory deficit. Moving all extremities. No slurred speech. CN 2 through 12 grossly intact Psych: calm, cooperative, normal affect Course Course Course Narrative: patient complaining of increasing weight secondary to fluid accumulation, increased shortness of breath worse with exertion, positive orthopnea. Patient states he is compliant taking Lasix. Patient likely has CHF exacerbation. Patient is saturating 92% on 6 L nasal cannula. All of patient's labs pending chest x-ray pending Medications Administered Discontinued Medications Generic Name Dose Route Start Last Admin Trade Name Freq PRN Reason Stop Dose Admin Bumetanide 1 mg 04/09/25 19:00 04/09/25 19:32 Bumetanide 1 Mg/4 Ml Vial IVPUSH 04/09/25 19:01 1 mg ONCE ONE Administration Protocol Potassium Chloride 20 meq 04/09/25 22:34 04/10/25 00:51 Potassium Chloride Er 20 Meq Tab.Er.Prt PO 04/09/25 22:35 20 meq ONCE ONE Administration Medical Decision Making Medical Decision Making [facility] Narrative: my interpretation of labs: No significant abnormality in patient's hematology, patient is anemic at baseline with a hemoglobin of 9.5 today. Patient's blood gases show a pH of 7.46, pCO2 59 which is at patient's baseline, bicarb 42. patient's chemistry shows a slightly elevated sodium, no significant bleed. Patient's potassium 3.2, being repleted p.o. patient's troponin is 54.1 which is at patient's baseline. Patient's BNP 673 which is a bit elevated over the patient's baseline. Patient's serology negative for influenza COVID and RSV patient also mentioned that he has been having difficulty urinating for about a week. Patient states that he is able to dribble some urine but believes that he is retaining urine in his bladder. Overall, patient's oxygen saturation dropped to 89% on 6 L. Patient was placed on CPAP for couple of hours. After dose 2 hours, the CPAP was removed, patient states that he feels that he is being much more comfortable, now on [address] saturating 95%. CT scan of the abdomen does not show any acute abnormality or obstruction. However, a small pleural effusion and edema was visualized on the long area. Pneumonia is not suspected, patient likely has CHF. Antibiotics are not indicated at this time. Differential Diagnosis Differential Diagnoses: The differential diagnosis associated with the presentation includes ( CHF, flash pulmonary edema) Admission/Observation Consideration of admission/observation: Escalation of care including admission/observation considered Consult Healthcare Provider Management of the patient was discussed with: Hospitalist Lab Data [facility] Lab Attestation statement: I reviewed the patient's lab results. 04/09/25 17:33 04/09/25 17:33 Labs: Lab Results 04/09/25 04/09/25 04/09/25 Range/Units 17:32 17:33 17:39 WBC 8.8 (4.8-10.8) X10*3/uL RBC 4.00 L (4.60-5.80) X10*6/uL Hgb 9.5 L (14.0-18.0) g/dl Hct 34.3 L (42.0-52.0) % MCV 85.8 (80.0-98.0) fL MCH 23.8 L (27.0-33.0) pg MCHC 27.7 L (31.0-36.0) g/dl RDW 17.2 H (11.0-16.0) % Plt Count 292 (160-400) X10*3/uL MPV 9.9 (9.4-12.4) fL Immature Gran % (Auto) 0.6 H (0.0-0.4) % Neut % (Auto) 78.0 H (45-73) % Lymph % (Auto) 12.3 L (20-40) % [place] % (Auto) 5.1 (2-11) % Eos % (Auto) 3.2 (0-4) % Baso % (Auto) 0.8 (0-2) % Lymph # (Auto) 1.1 L (1.2-4.9) X10*3/uL [place] # (Auto) 0.5 (0.1-1.2) X10*3/uL Eos # (Auto) 0.3 (0.0-0.4) X10*3/uL Baso # (Auto) 0.1 (0.0-0.2) X10*3/uL Abs Immat Gran (auto) 0.05 H (0.00-0.03) X10*3/uL Absolute Neuts (auto) 6.9 (2.0-8.3) x10*3/uL Absolute Nucleated RBC 0.000 (0.0-0.012) X10*3/uL Nucleated RBC % (auto) 0.0 (0.0-0.2) /100WBC VBG pH 7.46 H (7.32-7.43) VBG pCO2 59 mmHg VBG pO2 53 mmHg VBG HCO3 42 H (22-26) mmol/L VBG O2 Saturation 72.0 % VBG Base Excess 16.2 mmol/L Sodium 146 H (135-145) mmol/L Potassium 3.2 L (3.3-5.1) mmol/L Chloride 100 (96-108) mmol/L Carbon Dioxide 32 H (22-29) mmol/L Anion Gap 17 (12-20) BUN 19 H (9-16) mg/dL Creatinine 1.66 H (0.5-1.4) mg/dL Estim Creat Clear Calc 58.7 Estimated GFR 41 Random Glucose 124 H (60-115) mg/dL Lactic Acid 1.7 (0.5-2.0) mmol/L Calcium 9.4 (8.4-10.2) mg/dL Magnesium 2.3 (1.6-2.6) mg/dL Total Bilirubin 0.4 (0.0-1.0) mg/dL AST 26 (5-37) U/L ALT 15 (0-40) U/L Alkaline Phosphatase 83 (39-117) U/L Troponin I High Sens 54.1 H D (<3.5-35.0) ng/L B-Natriuretic Peptide 673 H (<100) pg/mL Total Protein 7.7 (6.5-8.0) g/dL Albumin 3.9 (3.5-5.0) g/dL Urine Color Urine Appearance Urine pH (5.0-9.0) Ur Specific [place] (1.005-1.025) Urine Protein (Neg-Trace) mg/dL Urine Glucose (UA) (Negative) mg/dL Urine Ketones (Negative) mg/dL Urine Blood (Negative) Urine Nitrite (Negative) Ur Leukocyte Esterase (Negative) Urine RBC (0-2) /HPF Urine WBC (0-5) /HPF Ur Squamous Epith Cells (0-2) /HPF Urine Bacteria (None Seen) Hyaline Casts (0-2) /LPF Influenza Type A (PCR) NEGATIVE (Negative) Influenza Type B (PCR) NEGATIVE (Negative) RSV RNA Qual (PCR) NEGATIVE (Negative) SARS-CoV-2 RNA (RT-PCR) NEGATIVE (Negative) 04/09/25 Range/Units 22:40 WBC (4.8-10.8) X10*3/uL RBC (4.60-5.80) X10*6/uL Hgb (14.0-18.0) g/dl Hct (42.0-52.0) % MCV (80.0-98.0) fL MCH (27.0-33.0) pg MCHC (31.0-36.0) g/dl RDW (11.0-16.0) % Plt Count (160-400) X10*3/uL MPV (9.4-12.4) fL Immature Gran % (Auto) (0.0-0.4) % Neut % (Auto) (45-73) % Lymph % (Auto) (20-40) % [place] % (Auto) (2-11) % Eos % (Auto) (0-4) % Baso % (Auto) (0-2) % Lymph # (Auto) (1.2-4.9) X10*3/uL [place] # (Auto) (0.1-1.2) X10*3/uL Eos # (Auto) (0.0-0.4) X10*3/uL Baso # (Auto) (0.0-0.2) X10*3/uL Abs Immat Gran (auto) (0.00-0.03) X10*3/uL Absolute Neuts (auto) (2.0-8.3) x10*3/uL Absolute Nucleated RBC (0.0-0.012) X10*3/uL Nucleated RBC % (auto) (0.0-0.2) /100WBC VBG pH (7.32-7.43) VBG pCO2 mmHg VBG pO2 mmHg VBG HCO3 (22-26) mmol/L VBG O2 Saturation % VBG Base Excess mmol/L Sodium (135-145) mmol/L Potassium (3.3-5.1) mmol/L Chloride (96-108) mmol/L Carbon Dioxide (22-29) mmol/L Anion Gap (12-20) BUN (9-16) mg/dL Creatinine (0.5-1.4) mg/dL Estim Creat Clear Calc Estimated GFR Random Glucose (60-115) mg/dL Lactic Acid (0.5-2.0) mmol/L Calcium (8.4-10.2) mg/dL Magnesium (1.6-2.6) mg/dL Total Bilirubin (0.0-1.0) mg/dL AST (5-37) U/L ALT (0-40) U/L Alkaline Phosphatase (39-117) U/L Troponin I High Sens (<3.5-35.0) ng/L B-Natriuretic Peptide (<100) pg/mL Total Protein (6.5-8.0) g/dL Albumin (3.5-5.0) g/dL Urine Color Yellow Urine Appearance Clear Urine pH 5.5 (5.0-9.0) Ur Specific [place] 1.020 (1.005-1.025) Urine Protein 300 (3+) H (Neg-Trace) mg/dL Urine Glucose (UA) Negative (Negative) mg/dL Urine Ketones Trace (Negative) mg/dL Urine Blood Moderate (2+) H (Negative) Urine Nitrite Negative (Negative) Ur Leukocyte Esterase Small (1+) H (Negative) Urine RBC >20 H (0-2) /HPF Urine WBC 21-50 H (0-5) /HPF Ur Squamous Epith Cells 3-5 (0-2) /HPF Urine Bacteria None Seen (None Seen) Hyaline Casts 11-20 (0-2) /LPF Influenza Type A (PCR) (Negative) Influenza Type B (PCR) (Negative) RSV RNA Qual (PCR) (Negative) SARS-CoV-2 RNA (RT-PCR) (Negative) Independent Interpretation I performed an independent interpretation of an: Plain X-Ray and CT Scan Radiology Impression Discussion of test interpretation with radiology: I have reviewed the radiologist's reading. Radiologist Impression: IMPRESSION: No acute findings. Severe cardiomegaly. Patchy ground-glass opacities of the lung bases as well as small left pleural effusion concerning for fluid overload/CHF. No hydronephrosis or nephrolithiasis. Urinary bladder is mostly contracted with an indwelling urinary catheter. Nonspecific moderate perinephric stranding. Ascending urinary tract infection can not be excluded. Correlate with urinalysis. Anterior lower abdominal wall/pannus moderate fat stranding, may represent edema related to fluid overload or panniculitis. Moderate to severe multilevel spondylosis of the visualized thoracolumbar spine Low lung volume. Suspected small bilateral pleural effusions, left more than right. Mild diffuse interstitial prominence in both lungs. Findings may represent fluid overload Critical Care Time Critical Care Time Critical Care Time: Yes Total Critical Care Time: 75 Attestation: I have personally provided critical care time. Time includes review of lab data, radiology results, discussion with consultants, and monitoring for potential decompensation. Intervention performed as documented. Discharge Plan Discharge Clinical Impression: Acute exacerbation of CHF (congestive heart failure), Acute kidney injury Patient Disposition: Admitted As Inpatient Print Language: Mongolian
[2025-04-09] MEDS: Bumetanide 1 MG/4 ML VIAL IVPUSH (19:32)
--- NOTE | 2025-04-09 22:29 | PC.NURSE ---
pt transferred to hospital bed for comfort as became uncomfortable in ed stretcher. baneg[place] in place. pt is axox4 speaking full clear sentences. pt denies feeling worsening sob, currently on 4L NC which pt states usually between 3-4L NC at home. aware of respirations. ?CPAP
[2025-04-09 23:15] LABS: Appearance Urine Clear; Glucose Urine UA Negative (Negative); PH 5.5 (5.0-9.0); Specific Gravity - Urine 1.020 (1.005-1.025); UMIC TRIGGER UACC YES
[2025-04-09 23:28] LABS: UACC Culture Trigger YES
[2025-04-10] VITALS (10 sets, daily range): BP systolic 132–184; BP diastolic 51–94; PULSE 62–74; RESP 17–35; TEMP 36.4–36.7; O2SAT 93–96
--- NOTE | 2025-04-10 00:45 | PC.NURSE ---
Bipap removed per MD and pt placed back on NC 4L with sats 96% respirations improved non labored. placed on oxymask as noted to be mouth breathing at times.
[2025-04-10] MEDS: Potassium Chloride ER 20 MEQ TAB.ER.PRT PO (00:51)
--- NOTE | 2025-04-10 02:54 | P.HPHOSP_ITS ---
History of Present Illness Date of Service: 04/10/25 Attending physician on admission: Jason Zhang Chief Complaint: Swollen legs Chuck Card is a 69 years old man with past medical history significant for systolic and diastolic congestive heart failure, atrial fibrillation, mild aortic stenosis, obesity, hypertension, hyperlipidemia and obstructive sleep apnea on home oxygen presents to the emergency department complaining of one- week history of worsening edema and pain to the lower extremities. He also complained of some shortness on breath. He denied chest pain, cough, abdominal pain, nausea, vomiting or diarrhea. He also denied any fever or chills. He did not report alcohol abuse, tobacco smoking or illicit drug use. In the ED, he was found to tachypnea. He is currently requiring OxyMask 4 L/min. Blood pressure is 132/51 and there is no tachycardia. Temperature is 97.7 degrees. Blood workup showed no leukocytosis. Hemoglobin is 9.5 and at baseline. Platelets are 292. Sodium is 146, potassium 3.2, chloride 100, CO2 32 anion gap 17. Magnesium is normal. BUN is 19 and creatinine 1.66. Glucose 124. LFTs are normal. BNP is 672 which is higher than his baseline. Troponin is 54.1. CXR showed low lung volume, suspected small bilateral pleural effusions, mild diffuse interstitial prominence in both lung finding may represent fluid overload. Abdomen and pelvis CT scan without contrast showed no acute findings. In the shows severe cardiomegaly, finding consistent with fluid overload/CHF, ascending urinary tract infection correlate with urinalysis and anterior lower wall fat stranding may represent edema related to fluid overload or panniculitis. ECG showed atrial fibrillation, 63 beats per minute. ED tx: Rescue CPAP. Bumex 1 mg IV, potassium 20 mEq p.o.. Review of Systems 2 Review of Systems: All 12 systems were reviewed and normal except as noted in HPI. [facility] Medical History Screening PSA (prostate specific antigen) Morbid obesity Elevated serum creatinine Right heart failure Leg pain FOREST (acute kidney injury) Leukocytosis LALI (obstructive sleep apnea) Hyperlipidemia HTN (hypertension) Diastolic heart failure Newly diagnosed diabetes Acute gout of left foot Chronic fatigue Pulmonary arterial hypertension Cerebrovascular accident (CVA) Family History Father Blood clot in vein Mother Cancer Surgical History Hx of shoulder surgery No pertinent past surgical history Social History Household Members: Unknown / Unable to assess Housing: Unknown / Unable to assess Do you presently have visiting nurse or other home services: No Unable to assess alcohol history related to: Unable to respond Alcohol intake: former Patient Tobacco Use Status: Never used Tobacco Years Smoked: nonsmoker Use of substances other than those prescribed or required for medical reasons: No Substance Use Type: Unknown Advance Directives: Yes Advance Directives on File: Yes Advance Directives Date on File: 12/03/20 Do you have a plan to hurt others: No Plan service: No Current occupational status: unemployed Meds Allergies Allergy/AdvReac Type Severity Reaction Status Date / Time No Known Allergies Allergy Verified 04/09/25 17:17 Home Medications ?Medication ?Instructions ?Recorded ?Confirmed ?Last Taken ?Type aspirin 81 mg chewable tablet 81 mg PO DAILY 09/29/23 10/26/24 10/26/24 History cholecalciferol (vitamin D3) 25 25 mcg PO DAILY 10/26/24 10/26/24 History mcg (1,000 unit) tablet (Vitamin D3) Physical Exam 2 Vital Signs and Narrative: Vital Signs: Last Vital Signs Temp 97.7 F 04/10/25 02:17 Pulse 67 04/10/25 02:17 Resp 18 04/10/25 02:17 BP 132/51 L 04/10/25 02:17 Pulse Ox 95 04/10/25 02:17 O2 Del Method Oxymask 04/10/25 02:17 O2 Flow Rate 5 04/10/25 02:17 Oxygen Flow Rate 6 04/09/25 17:10 BMI result Body Mass Index 52.3 Constitutional - Awake and Alert, No apparent distress. OxyMask in place. HEENT - PER, EOMI Heart - irregular rhythm, normal rate, no murmurs Lungs - Normal lung expansion, Normal respiratory effort, No respiratory distress. Tachypnea. Decreased breath sounds at bases. No wheezing or rhonchi. Abdomen- NT / ND; +BS; No rebound or guarding Extremities - pitting edema to the lower extremities, left leg: Erythema non tenderness no increased warmth. Musculoskeletal - Normal inspection, normal ROM Skin - Warm/Dry Neurological - Alert & oriented x3. Moving all extremities spontaneously. Normal speech. Psychological - Appropriate affect Results Labs 04/09/25 17:33 04/09/25 17:33 Labs: Laboratory Results - last 24 hr 04/09/25 04/09/25 04/09/25 17:32 17:33 17:39 MCV 85.8 MCH 23.8 L MCHC 27.7 L RDW 17.2 H Plt Count 292 MPV 9.9 Immature Gran % (Auto) 0.6 H Neut % (Auto) 78.0 H Lymph % (Auto) 12.3 L [place] % (Auto) 5.1 Eos % (Auto) 3.2 Baso % (Auto) 0.8 Lymph # (Auto) 1.1 L [place] # (Auto) 0.5 Eos # (Auto) 0.3 Baso # (Auto) 0.1 Abs Immat Gran (auto) 0.05 H Absolute Neuts (auto) 6.9 Absolute Nucleated RBC 0.000 Nucleated RBC % (auto) 0.0 VBG pH 7.46 H VBG pCO2 59 VBG pO2 53 VBG HCO3 42 H VBG O2 Saturation 72.0 VBG Base Excess 16.2 Anion Gap 17 Estim Creat Clear Calc 58.7 Estimated GFR 41 Random Glucose 124 H Lactic Acid 1.7 Calcium 9.4 Magnesium 2.3 Total Bilirubin 0.4 AST 26 ALT 15 Alkaline Phosphatase 83 B-Natriuretic Peptide 673 H Total Protein 7.7 Albumin 3.9 Urine Color Urine Appearance Urine pH Ur Specific [place] Urine Protein Urine Glucose (UA) Urine Ketones Urine Blood Urine Nitrite Ur Leukocyte Esterase Urine RBC Urine WBC Ur Squamous Epith Cells Urine Bacteria Hyaline Casts Influenza Type A (PCR) NEGATIVE Influenza Type B (PCR) NEGATIVE RSV RNA Qual (PCR) NEGATIVE SARS-CoV-2 RNA (RT-PCR) NEGATIVE 04/09/25 22:40 MCV MCH MCHC RDW Plt Count MPV Immature Gran % (Auto) Neut % (Auto) Lymph % (Auto) [place] % (Auto) Eos % (Auto) Baso % (Auto) Lymph # (Auto) [place] # (Auto) Eos # (Auto) Baso # (Auto) Abs Immat Gran (auto) Absolute Neuts (auto) Absolute Nucleated RBC Nucleated RBC % (auto) VBG pH VBG pCO2 VBG pO2 VBG HCO3 VBG O2 Saturation VBG Base Excess Anion Gap Estim Creat Clear Calc Estimated GFR Random Glucose Lactic Acid Calcium Magnesium Total Bilirubin AST ALT Alkaline Phosphatase B-Natriuretic Peptide Total Protein Albumin Urine Color Yellow Urine Appearance Clear Urine pH 5.5 Ur Specific [place] 1.020 Urine Protein 300 (3+) H Urine Glucose (UA) Negative Urine Ketones Trace Urine Blood Moderate (2+) H Urine Nitrite Negative Ur Leukocyte Esterase Small (1+) H Urine RBC >20 H Urine WBC 21-50 H Ur Squamous Epith Cells 3-5 Urine Bacteria None Seen Hyaline Casts 11-20 Influenza Type A (PCR) Influenza Type B (PCR) RSV RNA Qual (PCR) SARS-CoV-2 RNA (RT-PCR) Assessment and Plan (1) Acute hypoxic respiratory failure: Status: Acute (2) Acute on chronic systolic and diastolic heart failure, NYHA class 1: Status: Acute Plan Chuck Card is a 69 y/o man admitted with: * Acute hypoxic respiratory failure secondary to acute on chronic systolic and diastolic congestive heart failure in the setting of underlying obstructive sleep apnea. Admit to hospitalist service. Telemetry. Supplemental O2 to keep O2 sats> 90%. Continue Bumex 1 mg IV b.i.d.. Indwelling urinary catheter placed in the ED. Daily weights. Low-salt diet. CPAP at nighttime. * Acute kidney injury. Hold lisinopril. Continue to monitor renal function. Avoid nephrotoxic agents. * Type 2 diabetes mellitus. Metformin on hold. BG checks before meals at bedtime. Insulin sliding scale. Diabetic diet. * Essential hypertension. Lisinopril on hold due to FOREST. Continue amlodipine. * Atrial fibrillation. ?No anticoagulation use. Takes only aspirin. Start Eliquis. * Mood disorder. Continue duloxetine. * Morbid obesity. BMI 52.3 kg/M2. Weight loss is advised. * Hyperlipidemia. ?Statin. Check lipid panel. * Gout. Continue allopurinol. * History of CVA. Continue aspirin. DVT prophylaxis: Eliquis Code status: Full Med rec pending (pt does not recall the name of his medications). Patient will need hospitalization for at least 2 midnights acute respiratory failure secondary to CHF treatment with IV diuretics, CPAP and supplemental oxygen. Quality Stroke Does the patient have a stroke diagnosis?: No VTE Prior VTE?: No VTE Risk Level:: Medical - moderate - high VTE Device Contraindication: Treatment Not Indicated VTE Drug Contraindication: N/A - Med Ordered
--- NOTE | 2025-04-10 06:32 | PC.NURSE ---
MD aware of BP, states BP meds were held d/t kidney functions and will order different medication. also made aware pt is intermittently tachypneic but denies feeling sob, per MD will repeat VBG. leak noted out of [place], bed linen changed and lambert care given. repositioned. call arias within reach.
[2025-04-10 06:49] LABS: MANUAL DIFF FLAG NO
[2025-04-10 07:00] LABS: Hematocrit 32.1 % (42.0-52.0); Hemoglobin 9.2 g/dl (14.0-18.0); Imm Gran Abs Auto 0.04 X10*3/uL (0.00-0.03); Imm Gran Pct Auto 0.4 % (0.0-0.4); Lymphocytes Absolute Auto 1.5 X10*3/uL (1.2-4.9); Mean Corpuscular HGB Conc 28.7 g/dl (31.0-36.0); Mean Corpuscular Hemoglobin 24.3 pg (27.0-33.0); Mean Corpuscular Volume 84.7 fL (80.0-98.0); NRBC Abs Auto 0.000 X10*3/uL (0.0-0.012); NRBC Pct Auto 0.0 /100WBC (0.0-0.2); Platelet Count 281 X10*3/uL (160-400); Red Blood Count 3.79 X10*6/uL (4.60-5.80); White Blood Count 10.7 X10*3/uL (4.8-10.8)
--- NOTE | 2025-04-10 07:09 | PHA.MEDREC ---
Pharmacy Consult ? Medication Reconciliation Pharmacy has completed the medication reconciliation. Utilized med list sent to pharmacy and pharmacy claims to confirm.
[2025-04-10 07:13] LABS: Anion Gap 15 (12-20); Blood Urea Nitrogen 17 mg/dL (9-16); Calcium 9.1 mg/dL (8.4-10.2); Carbon Dioxide 33 mmol/L (22-29); Chloride 102 mmol/L (96-108); Creatinine Clr Calc Pharmacy 65.0; Estimated Glomerular Filt Rate 46; Magnesium 2.4 mg/dL (1.6-2.6); Potassium 3.3 mmol/L (3.3-5.1); Sodium 147 mmol/L (135-145)
[2025-04-10 07:19] LABS: Cholesterol 144 mg/dL (<200); HDL Cholesterol 46 mg/dL (>40); Triglycerides 74 mg/dL (<150)
--- NOTE | 2025-04-10 07:31 | PC.NURSE ---
pt calm, cooperative. Visibly belly breathing, denies SOB with oximask on. Respiratory saw him, determined he is ok for the moment, likely his baseline. A+OX4. RR even but elevated. Denies CP or pain.
[2025-04-10 07:36] LABS: Reflex LDLD? No
[2025-04-10 07:50] LABS: Glucose, Whole Blood 118 mg/dL (60-115)
[2025-04-10] MEDS: 0.9 % Sodium Chloride Flush 3 ML SYRINGE IVFLUSH (08:20)
[2025-04-10] MEDS: Bumetanide 1 MG/4 ML VIAL IVPUSH (08:20)
--- NOTE | 2025-04-10 09:53 | HO.PM.IMPN ---
Subjective Subjective Date of Service: 04/10/25 Interval History: sob Physical Exam Vital Signs: Vital Signs: Last Vital Signs Temp 98.0 F 04/10/25 06:21 Pulse 71 04/10/25 07:22 Resp 28 H 04/10/25 07:22 BP 183/87 H 04/10/25 08:20 Pulse Ox 96 04/10/25 07:22 O2 Del Method Oxymask 04/10/25 07:22 O2 Flow Rate 6 04/10/25 07:22 Oxygen Flow Rate 6 04/09/25 17:10 BMI result Body Mass Index 52.3 General: AO X 3, dyspneic, ill appearing Resp: diminished bilateral, accessory muscles used CVS: S1,S2,RRR, edema GI: soft, non tender, non distended Neuro: motor grossly intact, alert Psych: appropriate affect, appropriate insight Objective Data Active Medications Acetaminophen (Acetaminophen 325 Mg Tablet) 975 mg PO Q6H PRN PRN Reason: Pain, Mild 1-3,fever,headache Allopurinol (Allopurinol 300 Mg Tablet) 300 mg PO BID [facility] Apixaban (Apixaban 5 Mg Tablet) 5 mg PO BID [facility] Last Admin: 04/10/25 08:20 Dose: 5 mg Documented By: AISHWARYA Calcium Carbonate (Calcium Carbonate 750 Mg Tab.Chew) 750 mg PO Q4H PRN PRN Reason: Heartburn Dextrose (Dextrose 50 % 25 Gm/50 Ml Syringe) 25 gm IVPUSH Q15M PRN; Protocol PRN Reason: per Hypoglycemia Standing Ord. Duloxetine HCl (Duloxetine Hcl 30 Mg Capsule.Dr) 30 mg PO BID [facility] Glucose (Glucose Gel 15 Gm Gel..Gram.) 15 gm PO Q15M PRN; Protocol PRN Reason: per Hypoglycemia Standing Ord. Bumetanide 25 mg/ IV (Miscellaneous Supplies) 100 mls @ 1 mls/hr IVCONT .Q24H [facility] Insulin Human Lispro (Insulin Lispro 100 Unit/Ml 3 Ml Vial) 0 unit SUBCUT QIDACHS [facility]; Protocol Last Admin: 04/10/25 08:14 Dose: Not Given Documented By: AISHWARYA Non-Admin Reason: BG below range for scale Sodium Chloride (0.9 % Sodium Chloride Flush 3 Ml Syringe) 3 ml IVFLUSH QSHIFT [facility] Last Admin: 04/10/25 08:20 Dose: 3 ml Documented By: AISHWARYA Labs 04/10/25 06:17 04/10/25 06:17 Labs: Laboratory Results - last 24 hr 04/09/25 04/09/25 04/09/25 17:32 17:33 17:39 MCV 85.8 MCH 23.8 L MCHC 27.7 L RDW 17.2 H Plt Count 292 MPV 9.9 Immature Gran % (Auto) 0.6 H Neut % (Auto) 78.0 H Lymph % (Auto) 12.3 L [place] % (Auto) 5.1 Eos % (Auto) 3.2 Baso % (Auto) 0.8 Lymph # (Auto) 1.1 L [place] # (Auto) 0.5 Eos # (Auto) 0.3 Baso # (Auto) 0.1 Abs Immat Gran (auto) 0.05 H Absolute Neuts (auto) 6.9 Absolute Nucleated RBC 0.000 Nucleated RBC % (auto) 0.0 VBG pH 7.46 H VBG pCO2 59 VBG pO2 53 VBG HCO3 42 H VBG O2 Saturation 72.0 VBG Base Excess 16.2 Anion Gap 17 Estim Creat Clear Calc 58.7 Estimated GFR 41 POC Glucose Random Glucose 124 H Lactic Acid 1.7 Calcium 9.4 Magnesium 2.3 Total Bilirubin 0.4 AST 26 ALT 15 Alkaline Phosphatase 83 B-Natriuretic Peptide 673 H Total Protein 7.7 Albumin 3.9 Triglycerides Cholesterol LDL Cholesterol, Calc HDL Cholesterol Urine Color Urine Appearance Urine pH Ur Specific [place] Urine Protein Urine Glucose (UA) Urine Ketones Urine Blood Urine Nitrite Ur Leukocyte Esterase Urine RBC Urine WBC Ur Squamous Epith Cells Urine Bacteria Hyaline Casts Influenza Type A (PCR) NEGATIVE Influenza Type B (PCR) NEGATIVE RSV RNA Qual (PCR) NEGATIVE SARS-CoV-2 RNA (RT-PCR) NEGATIVE 04/09/25 04/10/25 04/10/25 22:40 06:17 07:45 MCV 84.7 MCH 24.3 L MCHC 28.7 L RDW 17.2 H Plt Count 281 MPV 9.2 L Immature Gran % (Auto) 0.4 Neut % (Auto) 77.3 H Lymph % (Auto) 13.6 L [place] % (Auto) 5.9 Eos % (Auto) 2.1 Baso % (Auto) 0.7 Lymph # (Auto) 1.5 [place] # (Auto) 0.6 Eos # (Auto) 0.2 Baso # (Auto) 0.1 Abs Immat Gran (auto) 0.04 H Absolute Neuts (auto) 8.3 Absolute Nucleated RBC 0.000 Nucleated RBC % (auto) 0.0 VBG pH VBG pCO2 VBG pO2 VBG HCO3 VBG O2 Saturation VBG Base Excess Anion Gap 15 Estim Creat Clear Calc 65.0 Estimated GFR 46 POC Glucose 118 H Random Glucose 107 Lactic Acid Calcium 9.1 Magnesium 2.4 Total Bilirubin AST ALT Alkaline Phosphatase B-Natriuretic Peptide Total Protein Albumin Triglycerides 74 Cholesterol 144 LDL Cholesterol, Calc 84 HDL Cholesterol 46 Urine Color Yellow Urine Appearance Clear Urine pH 5.5 Ur Specific [place] 1.020 Urine Protein 300 (3+) H Urine Glucose (UA) Negative Urine Ketones Trace Urine Blood Moderate (2+) H Urine Nitrite Negative Ur Leukocyte Esterase Small (1+) H Urine RBC >20 H Urine WBC 21-50 H Ur Squamous Epith Cells 3-5 Urine Bacteria None Seen Hyaline Casts 11-20 Influenza Type A (PCR) Influenza Type B (PCR) RSV RNA Qual (PCR) SARS-CoV-2 RNA (RT-PCR) Assessment and Plan (1) HTN (hypertension): Status: Acute Plan 69M PMH chronic hypoxic respiratory failure on 3 L home O2, chronic systolic and diastolic CHF, chronic AFib, morbid obesity, hypertension, LALI presented with shortness of breath and worsening edema Acute on chronic hypoxic respiratory failure due to acute on chronic systolic and diastolic CHF We will change to Bumex drip as minimal output, wean O2 Check VBG to rule out hypercapnia Acute kidney injury Suspect cardiorenal, continue diuresis, monitor, hold lisinopril Diabetes Insulin sliding scale Chronic AFib Started on Eliquis Morbid obesity Weight loss Mood disorder Duloxetine Gout Allopurinol DVT prophylaxis on Eliquis Full code reason for continued hospitalization: Hypoxia, IV diuresis Quality Stroke Does the patient have a stroke diagnosis?: No VTE Prior VTE?: No VTE Risk Level:: Medical - moderate - high VTE Device Contraindication: Treatment Not Indicated VTE Drug Contraindication: N/A - Med Ordered
[2025-04-10 10:29] LABS: Venous Blood Gas Refer to POC result
[2025-04-10 10:29] LABS: VBG HCO3 44 mmol/L (22-26); VBG O2 % Saturation 86.0 %
[2025-04-10] MEDS: Bumetanide 25 MG in Container,Empty 0 ML IVCONT (10:43)
--- NOTE | 2025-04-10 11:08 | P.CDIM_ITS ---
PROVIDER RESPONSE TEXT: To clarify, the appropriate diagnosis supported by the clinical indicators: Hypernatremia: acute QUERY TEXT: PHYSICIAN'S DOCUMENTATION REQUEST Date of Query: 04/10/2025 10:59 AM EDT Patient Name: Chuck Card Admit Date: 04/10/2025 Dear Rian Waller MD, A review of the medical record indicates additional documentation may be needed. Please review below and update the documentation accordingly. Clinical Indicators: LABS: Sodium 147 H Fluids Based on the above, is there a diagnosis that correlates with these findings: Hypernatremia possible, resolved, suspected etc. Labs indicate a diagnosis of (please specify) Other (explain) Clinically unable to determine (explain) Thank you, Desiree Grace, CCS, CDIS Use of terms such as suspected, likely, concern for, or probable (associated with a specific diagnosis that is being evaluated, monitored, or treated as if it exists) are acceptable and can be coded in the inpatient setting, when documented at the time of discharge. Please use your independent medical judgment in providing your response. THIS QUERY IS PART OF THE PERMANENT MEDICAL RECORD
--- NOTE | 2025-04-10 11:51 | MHC.CM.PN ---
PATIENT LIVES WITH [facility]/HCP COPY ON FILE AND VERIFIED. HE RELIES ON A FRW AND [facility] FOR AMBULATION ASSIST. HOME O2 AND TRANSPORT TANK AND PATIENT BELIEVES HE GETS THIS THROUGH [facility]. HE ARRIVED BY AMBULANCE AND MAY NEED TRANSPORT HOME. CASE MANAGEMENT FOLLOWING FOR DC NEEDS. IMM 04/10 IN CHART.
[2025-04-10 11:55] LABS: Glucose, Whole Blood 112 mg/dL (60-115)
--- NOTE | 2025-04-10 15:42 | PC.NURSE ---
awaiting Nitro from pharmacy
--- NOTE | 2025-04-10 16:41 | PC.NURSE ---
Pt requested and given Tylenol for headache. Pt continues on Bumex gtt at 0.25mg/hr, Nitro to left upper arm patch in place. Family at bedside. A fib on tele. Breathing sl improved but remains labored. +output
[2025-04-10 17:41] LABS: Glucose, Whole Blood 125 mg/dL (60-115)
[2025-04-10 22:26] LABS: Glucose, Whole Blood 132 mg/dL (60-115)
[2025-04-11] VITALS (7 sets, daily range): BP systolic 118–161; BP diastolic 57–98; PULSE 59–76; RESP 18–30; TEMP 36–36.7; O2SAT 92–99; BMI 51.7
[2025-04-11 04:26] LABS: Hematocrit 31.8 % (42.0-52.0); Hemoglobin 9.1 g/dl (14.0-18.0); Mean Corpuscular HGB Conc 28.6 g/dl (31.0-36.0); Mean Corpuscular Hemoglobin 24.1 pg (27.0-33.0); Mean Corpuscular Volume 84.1 fL (80.0-98.0); NRBC Abs Auto 0.000 X10*3/uL (0.0-0.012); NRBC Pct Auto 0.0 /100WBC (0.0-0.2); Platelet Count 285 X10*3/uL (160-400); Red Blood Count 3.78 X10*6/uL (4.60-5.80); White Blood Count 12.1 X10*3/uL (4.8-10.8)
[2025-04-11 04:44] LABS: Anion Gap 17 (12-20); Blood Urea Nitrogen 16 mg/dL (9-16); Calcium 9.1 mg/dL (8.4-10.2); Carbon Dioxide 33 mmol/L (22-29); Chloride 101 mmol/L (96-108); Creatinine Clr Calc Pharmacy 66.7; Estimated Glomerular Filt Rate 48; Magnesium 2.3 mg/dL (1.6-2.6); Potassium 3.6 mmol/L (3.3-5.1); Sodium 147 mmol/L (135-145)
--- NOTE | 2025-04-11 05:51 | PC.NURSE ---
20g IV placed on right forearm. Patient tolerated well, flushing with great blood return. IV placed due to positional IV in R AC.
--- NOTE | 2025-04-11 06:35 | PC.NURSE ---
pt self positioned himself throughout the night, resting comfortably at this time. call juana w/in reach.
--- NOTE | 2025-04-11 07:16 | PC.NURSE ---
nitro patch to Left shoulder removed, BP stable. no new patch placed at this time
[2025-04-11 07:19] LABS: Glucose, Whole Blood 113 mg/dL (60-115)
--- NOTE | 2025-04-11 09:46 | P.PNIM_ITS ---
Subjective Subjective Date of Service: 04/11/25 Interval History: improving sob Physical Exam 2 Vital Signs: Vital Signs: Last Vital Signs Temp 97.6 F 04/11/25 06:32 Pulse 76 04/11/25 06:32 Resp 30 H 04/11/25 06:32 BP 145/65 H 04/11/25 06:32 Pulse Ox 96 04/11/25 06:32 O2 Del Method Oxymask 04/11/25 06:32 O2 Flow Rate 7 04/11/25 06:32 Oxygen Flow Rate 6 04/09/25 17:10 BMI result Body Mass Index 52.3 General: AO X 3, ill appearing - less dyspneic than previous day, easier time talking Resp: diminished bilateral, accessory muscles used -less than previous, but still with some belly breathing CVS: S1,S2,RRR, edema GI: soft, non tender, non distended Neuro: motor grossly intact, alert Psych: appropriate affect, appropriate insight Objective Data Active Medications Acetaminophen (Acetaminophen 325 Mg Tablet) 975 mg PO Q6H PRN PRN Reason: Pain, Mild 1-3,fever,headache Last Admin: 04/10/25 16:39 Dose: 975 mg Documented By: LOU Allopurinol (Allopurinol 300 Mg Tablet) 300 mg PO BID [facility] Last Admin: 04/10/25 22:21 Dose: 300 mg Documented By: MOLLY Amlodipine Besylate (Amlodipine Besylate 5 Mg Tablet) 5 mg PO DAILY [facility]; Protocol Last Admin: 04/11/25 08:34 Dose: 5 mg Documented By: JOHANA Apixaban (Apixaban 5 Mg Tablet) 5 mg PO BID [facility] Last Admin: 04/11/25 08:35 Dose: 5 mg Documented By: JOHANA Calcium Carbonate (Calcium Carbonate 750 Mg Tab.Chew) 750 mg PO Q4H PRN PRN Reason: Heartburn Dextrose (Dextrose 50 % 25 Gm/50 Ml Syringe) 25 gm IVPUSH Q15M PRN; Protocol PRN Reason: per Hypoglycemia Standing Ord. Duloxetine HCl (Duloxetine Hcl 30 Mg Capsule.Dr) 30 mg PO BID [facility] Last Admin: 04/11/25 08:34 Dose: 30 mg Documented By: JOHANA Glucose (Glucose Gel 15 Gm Gel..Gram.) 15 gm PO Q15M PRN; Protocol PRN Reason: per Hypoglycemia Standing Ord. Bumetanide 25 mg/ IV (Miscellaneous Supplies) 100 mls @ 1 mls/hr IVCONT .Q24H [facility] Last Admin: 04/10/25 10:43 Dose: 0.25 mg/hr, 1 mls/hr Documented By: AISHWARYA Insulin Human Lispro (Insulin Lispro 100 Unit/Ml 3 Ml Vial) 0 unit SUBCUT QIDACHS [facility]; Protocol Last Admin: 04/11/25 07:22 Dose: Not Given Documented By: JOHANA Non-Admin Reason: No Insulin Coverage Sodium Chloride (0.9 % Sodium Chloride Flush 3 Ml Syringe) 3 ml IVFLUSH QSHIFT [facility] Last Admin: 04/11/25 07:24 Dose: Not Given Documented By: JOHANA Non-Admin Reason: IV Running Labs 04/11/25 03:53 04/11/25 03:53 Labs: Laboratory Results - last 24 hr 04/10/25 04/10/25 04/10/25 10:23 11:50 17:34 MCV MCH MCHC RDW Plt Count MPV Absolute Nucleated RBC Nucleated RBC % (auto) VBG pH 7.44 H VBG pCO2 64 VBG pO2 60 VBG HCO3 44 H VBG O2 Saturation 86.0 VBG Base Excess 17.4 Anion Gap Estim Creat Clear Calc Estimated GFR POC Glucose 112 125 H Random Glucose Calcium Magnesium 04/10/25 04/11/25 04/11/25 22:23 03:53 07:10 MCV 84.1 MCH 24.1 L MCHC 28.6 L RDW 17.1 H Plt Count 285 MPV 9.5 Absolute Nucleated RBC 0.000 Nucleated RBC % (auto) 0.0 VBG pH VBG pCO2 VBG pO2 VBG HCO3 VBG O2 Saturation VBG Base Excess Anion Gap 17 Estim Creat Clear Calc 66.7 Estimated GFR 48 POC Glucose 132 H 113 Random Glucose 107 Calcium 9.1 Magnesium 2.3 Microbiology Microbiology Results: Microbiology 04/09/25 Unknown Urine Culture - Final Urine clean catch - Clean Catch Midstream No growth. 04/09/25 17:33 Blood Culture - Preliminary Blood - Venous No growth after 24 hours. 04/09/25 17:33 Blood Culture - Preliminary Blood - Venous No growth after 24 hours. Assessment and Plan (1) HTN (hypertension): Status: Acute Plan 69M PMH chronic hypoxic respiratory failure on 3 L home O2, chronic systolic and diastolic CHF, chronic AFib, morbid obesity, hypertension, LALI presented with shortness of breath and worsening edema Acute on chronic hypoxic respiratory failure due to acute on chronic systolic and diastolic CHF continue bumex infusion, wean O2 OSH/OHS with chronic hypercapneic respiratory failure avoid oxygen toxicity, goal sats 90-93% Acute kidney injury Suspect cardiorenal, continue diuresis, monitor, hold lisinopril Diabetes Insulin sliding scale Chronic AFib Started on Eliquis Morbid obesity Weight loss Mood disorder Duloxetine Gout Allopurinol DVT prophylaxis on Eliquis Full code reason for continued hospitalization: Hypoxia, IV diuresis Quality Stroke Does the patient have a stroke diagnosis?: No VTE Prior VTE?: No VTE Risk Level:: Medical - moderate - high VTE Device Contraindication: Treatment Not Indicated VTE Drug Contraindication: N/A - Med Ordered
--- NOTE | 2025-04-11 10:29 | MHC.CM.PN ---
Per ROUNDS discussion, Patient is not yet medically cleared for dc (Hypoxia/IV Bumex); Patient may benefit from a PT Eval to assist with disposition. CM will continue to follow.
[2025-04-11 11:09] LABS: Glucose, Whole Blood 117 mg/dL (60-115)
[2025-04-11] MEDS: Bumetanide 25 MG in Container,Empty 0 ML IVCONT (12:08)
[2025-04-11 16:09] LABS: Glucose, Whole Blood 110 mg/dL (60-115)
[2025-04-11 21:01] LABS: Glucose, Whole Blood 111 mg/dL (60-115)
[2025-04-12] VITALS (13 sets, daily range): BP systolic 120–176; BP diastolic 50–88; PULSE 46–86; RESP 18–24; TEMP 36–36.6; O2SAT 92–100
[2025-04-12 07:19] LABS: Glucose, Whole Blood 86 mg/dL (60-115)
--- NOTE | 2025-04-12 07:56 | HO.PM.IMPN ---
Subjective Subjective Date of Service: 04/12/25 Interval History: Seen and examined this morning Interval history: Foul smelling odor on patient. Denies sob or wheezing. No chest pain. Diuresing well -1.6L 24h, -4.5L admission Physical Exam Vital Signs: Vital Signs: Last Vital Signs Temp 96.8 F 04/12/25 07:11 Pulse 46 L 04/12/25 07:11 Resp 18 04/12/25 07:11 BP 172/77 H 04/12/25 07:11 Pulse Ox 99 04/12/25 07:11 O2 Del Method CPAP 04/12/25 07:11 O2 Flow Rate 8 04/11/25 23:35 Oxygen Flow Rate 6 04/09/25 17:10 BMI result Body Mass Index 51.7 EXAM: Constitutional - Awake and Alert, No apparent distress Eyes - PERRL Cardiovascular - S1S2, RRR, 3+ edema Respiratory - Normal lung expansion, Normal respiratory effort, No respiratory distress, CTA bilaterally Extremities - no calf tenderness bilaterally, no swelling Skin - Warm/Dry. fungal rash intertriginous areas Neurological - Alert & oriented x3 Psychological - Appropriate affect Objective Data Active Medications Acetaminophen (Acetaminophen 325 Mg Tablet) 975 mg PO Q6H PRN PRN Reason: Pain, Mild 1-3,fever,headache Last Admin: 04/11/25 19:42 Dose: 975 mg Documented By: ESTELA Allopurinol (Allopurinol 300 Mg Tablet) 300 mg PO BID [facility] Last Admin: 04/11/25 19:41 Dose: 300 mg Documented By: ESTELA Amlodipine Besylate (Amlodipine Besylate 5 Mg Tablet) 5 mg PO DAILY [facility]; Protocol Last Admin: 04/11/25 08:34 Dose: 5 mg Documented By: JOHANA Apixaban (Apixaban 5 Mg Tablet) 5 mg PO BID [facility] Last Admin: 04/11/25 19:41 Dose: 5 mg Documented By: ESTELA Calcium Carbonate (Calcium Carbonate 750 Mg Tab.Chew) 750 mg PO Q4H PRN PRN Reason: Heartburn Dextrose (Dextrose 50 % 25 Gm/50 Ml Syringe) 25 gm IVPUSH Q15M PRN; Protocol PRN Reason: per Hypoglycemia Standing Ord. Duloxetine HCl (Duloxetine Hcl 30 Mg Capsule.) 30 mg PO BID [facility] Last Admin: 04/11/25 19:41 Dose: 30 mg Documented By: ESTELA Glucose (Glucose Gel 15 Gm Gel..Gram.) 15 gm PO Q15M PRN; Protocol PRN Reason: per Hypoglycemia Standing Ord. Bumetanide 25 mg/ IV (Miscellaneous Supplies) 100 mls @ 1 mls/hr IVCONT .Q24H [facility] Last Admin: 04/11/25 12:08 Dose: 0.25 mg/hr, 1 mls/hr Documented By: ALFREDO Insulin Human Lispro (Insulin Lispro 100 Unit/Ml 3 Ml Vial) 0 unit SUBCUT QIDACHS [facility]; Protocol Last Admin: 04/12/25 07:41 Dose: Not Given Documented By: DAVID Non-Admin Reason: No Insulin Coverage Sodium Chloride (0.9 % Sodium Chloride Flush 3 Ml Syringe) 3 ml IVFLUSH QSHIFT [facility] Last Admin: 04/12/25 06:13 Dose: Not Given Documented By: ESTELA Non-Admin Reason: IV Running Labs 04/12/25 10:34 04/12/25 10:34 Labs: Laboratory Results - last 24 hr 04/11/25 04/11/25 04/11/25 10:58 16:07 20:54 POC Glucose 117 H 110 111 04/12/25 07:08 POC Glucose 86 Microbiology Microbiology Results: Microbiology 04/09/25 17:33 Blood Culture - Preliminary Blood - Venous No growth after 48 hours. 04/09/25 17:33 Blood Culture - Preliminary Blood - Venous No growth after 48 hours. 04/09/25 Unknown Urine Culture - Final Urine clean catch - Clean Catch Midstream No growth. Assessment and Plan (1) HTN (hypertension): Status: Acute Plan 69M PMH chronic hypoxic respiratory failure on 3 L home O2, chronic systolic and diastolic CHF, chronic AFib, morbid obesity, hypertension, LALI presented with shortness of breath and worsening edema Acute on chronic hypoxic respiratory failure due to acute on chronic systolic and diastolic CHF continue bumex infusion, wean O2 Monitor renal function/lytes Monitor I&O OSH/OHS with chronic hypercapneic respiratory failure avoid oxygen toxicity, goal sats 90-93% Acute kidney injury Suspect cardiorenal, continue diuresis, monitor, hold lisinopril Diabetes Insulin sliding scale Chronic AFib Started on Eliquis Morbid obesity Weight loss Mood disorder Duloxetine Gout Allopurinol DVT prophylaxis on Eliquis Full code reason for continued hospitalization: Hypoxia, IV diuresis Quality Stroke Does the patient have a stroke diagnosis?: No VTE Prior VTE?: No VTE Risk Level:: Medical - moderate - high VTE Device Contraindication: Treatment Not Indicated VTE Drug Contraindication: N/A - Med Ordered
[2025-04-12] MEDS: 0.9 % Sodium Chloride Flush 3 ML SYRINGE IVFLUSH (09:24)
[2025-04-12] MEDS: Bumetanide 25 MG in Container,Empty 0 ML IVCONT (09:24)
[2025-04-12 10:49] LABS: Hematocrit 32.4 % (42.0-52.0); Hemoglobin 9.2 g/dl (14.0-18.0); Mean Corpuscular HGB Conc 28.4 g/dl (31.0-36.0); Mean Corpuscular Hemoglobin 24.3 pg (27.0-33.0); Mean Corpuscular Volume 85.5 fL (80.0-98.0); NRBC Abs Auto 0.000 X10*3/uL (0.0-0.012); NRBC Pct Auto 0.0 /100WBC (0.0-0.2); Platelet Count 256 X10*3/uL (160-400); Red Blood Count 3.79 X10*6/uL (4.60-5.80); White Blood Count 10.0 X10*3/uL (4.8-10.8)
[2025-04-12 10:57] LABS: Glucose, Whole Blood 96 mg/dL (60-115)
[2025-04-12 11:03] LABS: Blood Urea Nitrogen 16 mg/dL (9-16); Calcium 9.2 mg/dL (8.4-10.2); Creatinine Clr Calc Pharmacy 67.2; Estimated Glomerular Filt Rate 48; Magnesium 2.1 mg/dL (1.6-2.6)
[2025-04-12 11:18] LABS: Anion Gap 12 (12-20); Carbon Dioxide 40 mmol/L (22-29); Chloride 98 mmol/L (96-108); Potassium 3.3 mmol/L (3.3-5.1); Sodium 147 mmol/L (135-145)
[2025-04-12 12:53] LABS: Venous Blood Gas Refer to POC result
[2025-04-12 12:54] LABS: VBG HCO3 49 mmol/L (22-26); VBG O2 % Saturation 64.0 %
--- NOTE | 2025-04-12 14:44 | HO.WOUND ---
Wound Consult: Initial 69yr old? male admitted to [facility] [place] on 04/10/25 - See progress notes and H&P for detailed history.? Wound consult placed for Low Maynor .? Patient agreeable to assessment and photo documentation.? Discussed skin concerns with direct care nurse: reports concern to gluteal slit buttock area and skin folds. Buttock / Gluteal fold Etiology: ??MASD Wound Bed: moist red pink blanchable tissue - desquamation noted - some scattered open dry tissue along edges Drainage / Odor: None noted Edges: ? mirrored Cass wound: intact ? No Induration, Fluctuance or Warmth noted Pain: denies Goals of Treatment: ? barrier cream to protect from friction and moisture Skin Folds and groin Etiology: ?MASD with fungal dermatitis ? Wound Bed: red pink tissue with some areas of scattered open tissue - clean wound beds - satellite lesions noted Drainage / Odor: Yeast odor noted Edges: ?mirrored with advancement Cass wound: intact ? No Induration, Fluctuance or Warmth noted Pain: denies Goals of Treatment: ? Antifunagl powder and interdry to translocate moisture Bridge of Nose Etiology: ?Redness ? Wound Bed: intact red blanchable tissue - no PI injury noted at this time. No preventative foam dressing in place at time of my consult - preventative foam added to aid in pressure redistribution and protecting from friction. Drainage / Odor: None Pain: reports tenderness Goals of Treatment: ? Keep using preventative foam dressings Right heel - noted for intact purple pigmentation not consistent with pressure. Left Lower Leg - Anterior - Noted for intact redness - no open tissue noted no weeping noted - patient reports he often has this area this current flare he has had for a few months per his statement - he reports she has not sought treatment prior. Recommendations: 1. Turn and Reposition every 2 hours and as needed for patient comfort.? Use pillows or wedges to support off loading positions. 2. Off Load all bony prominences with use of pillows and heel boots if needed.? Apply Preventative foams where needed. ? 3. Monitor for incontinence and moisture control, use barrier creams when needed for prevention and treatment. 4. Provide adequate and supplemental nutrition.? 5. Order low air loss mattress. 6. When applicable maintain blood glucose levels per Providers order. Bridge of Nose - Routine cleansing. Apply skin prep besure to keep away from eyes. Apply Mepilex lite foam dressing to fit under CPAP Device when in use. Skin folds - Cleanse with PH balance wipes, pat dry with soft cloth.? Apply antifungal power to assist with moisture management.? Be sure to dust of excess powder to prevent caking on skin and in folds. Apply per provider orders. Tuck Interdry AG Sheet into skin fold to wick and translocate moisture away from skin fold.? Be sure to leave at least 2 inch of fabric exposed outside of skin fold.? Change after 5 days or when soiled. Buttock and Gluteal Fold - Off Load Pressure with Q2 hr turns and use of pillows - Cleanse with PH balance spray or wipes, pat dry. ?Apply thin layer of barrier cream to affected area.? Apply twice daily and Reapply thin layer PRN after each episode of incontinence. Re-consult wound care Nurse for wound deterioration or wound changes.
[2025-04-12 16:05] LABS: Glucose, Whole Blood 104 mg/dL (60-115)
[2025-04-12] MEDS: Potassium Chloride/H20 10 MEQ/100 ML PIGGYBACK 100 MEQ IV (17:27)
[2025-04-12] MEDS: Potassium Chloride/H20 10 MEQ/100 ML PIGGYBACK 75 MEQ IV ×3 (19:00→21:43)
[2025-04-12 20:38] LABS: Glucose, Whole Blood 99 mg/dL (60-115)
[2025-04-13] VITALS (8 sets, daily range): BP systolic 134–168; BP diastolic 63–78; PULSE 52–66; RESP 18–27; TEMP 36.2–36.7; O2SAT 94–100; BMI 51.7
[2025-04-13 07:07] LABS: B Type Natriuretic Peptide 346 pg/mL (<100)
[2025-04-13 07:11] LABS: Blood Urea Nitrogen 17 mg/dL (9-16); Calcium 8.7 mg/dL (8.4-10.2); Creatinine Clr Calc Pharmacy 73.9; Estimated Glomerular Filt Rate 54
[2025-04-13 07:14] LABS: Glucose, Whole Blood 89 mg/dL (60-115)
[2025-04-13 07:20] LABS: Anion Gap 12 (12-20); Carbon Dioxide 39 mmol/L (22-29); Chloride 96 mmol/L (96-108); Sodium 144 mmol/L (135-145)
[2025-04-13 07:30] LABS: Potassium 2.9 mmol/L (3.3-5.1)
[2025-04-13] MEDS: 0.9 % Sodium Chloride Flush 3 ML SYRINGE IVFLUSH ×4 (09:48→21:08)
[2025-04-13] MEDS: Potassium Chloride ER 20 MEQ TAB.ER.PRT 40 MEQ PO ×2 (09:49→21:08)
[2025-04-13] MEDS: Bumetanide 25 MG in Container,Empty 0 ML IVCONT (10:41)
[2025-04-13 11:22] LABS: Glucose, Whole Blood 93 mg/dL (60-115)
--- NOTE | 2025-04-13 13:03 | PC.NURSE ---
patient refusing bed/chair alarm and refusing to ring call arias before attempting to ambulate. education given on the importance of adhering to fall prevention interventions and fall risk status, but patient still refuses. patient became increasingly agitated with this RN during education. provider and foam charger notified, patient alert and oriented X4.
--- NOTE | 2025-04-13 13:14 | MHC.CM.PN ---
EMR reviewed and per MD rounds, pt is not medically cleared for discharge due to management of acute on chronic hypoxic respiratory failure due to CHF.
--- NOTE | 2025-04-13 13:48 | HO.PM.IMPN ---
Subjective Subjective Date of Service: 04/13/25 Interval History: Seen and examined this morning Interval history: No new issues, continue to diuresse well 5.9 thus far, and remains on high amount of O2 at 6 L Physical Exam Vital Signs: Vital Signs: Last Vital Signs Temp 97.1 F 04/13/25 11:08 Pulse 52 04/13/25 11:08 Resp 18 04/13/25 11:08 BP 153/66 H 04/13/25 11:08 Pulse Ox 94 04/13/25 11:08 O2 Del Method Nasal Cannula 04/13/25 11:08 O2 Flow Rate 6 04/13/25 11:08 FiO2 50 04/12/25 23:23 Oxygen Flow Rate 6 04/09/25 17:10 BMI result Body Mass Index 51.7 EXAM: Constitutional - Awake and Alert, No apparent distress Eyes - PERRL Cardiovascular - S1S2, RRR, 3+ edema Respiratory - Normal lung expansion, Normal respiratory effort, No respiratory distress, CTA bilaterally Extremities - no calf tenderness bilaterally, no swelling Skin - Warm/Dry. fungal rash intertriginous areas Neurological - Alert & oriented x3 Psychological - Appropriate affect Objective Data Active Medications Acetaminophen (Acetaminophen 325 Mg Tablet) 975 mg PO Q6H PRN PRN Reason: Pain, Mild 1-3,fever,headache Last Admin: 04/11/25 19:42 Dose: 975 mg Documented By: ESTELA Allopurinol (Allopurinol 300 Mg Tablet) 300 mg PO BID [facility] Last Admin: 04/13/25 09:50 Dose: 300 mg Documented By: DAVID Amlodipine Besylate (Amlodipine Besylate 5 Mg Tablet) 5 mg PO DAILY [facility]; Protocol Last Admin: 04/13/25 09:49 Dose: 5 mg Documented By: DAVID Apixaban (Apixaban 5 Mg Tablet) 5 mg PO BID [facility] Last Admin: 04/13/25 09:49 Dose: 5 mg Documented By: DAVID Calcium Carbonate (Calcium Carbonate 750 Mg Tab.Chew) 750 mg PO Q4H PRN PRN Reason: Heartburn Dextrose (Dextrose 50 % 25 Gm/50 Ml Syringe) 25 gm IVPUSH Q15M PRN; Protocol PRN Reason: per Hypoglycemia Standing Ord. Duloxetine HCl (Duloxetine Hcl 30 Mg Capsule.Dr) 30 mg PO BID [facility] Last Admin: 04/13/25 09:49 Dose: 30 mg Documented By: DAVID Glucose (Glucose Gel 15 Gm Gel..Gram.) 15 gm PO Q15M PRN; Protocol PRN Reason: per Hypoglycemia Standing Ord. Bumetanide 25 mg/ IV (Miscellaneous Supplies) 100 mls @ 1 mls/hr IVCONT .Q24H [facility] Last Admin: 04/13/25 10:41 Dose: 0.25 mg/hr, 1 mls/hr Documented By: DAVID Insulin Human Lispro (Insulin Lispro 100 Unit/Ml 3 Ml Vial) 0 unit SUBCUT QIDACHS [facility]; Protocol Last Admin: 04/13/25 12:12 Dose: Not Given Documented By: DAVID Non-Admin Reason: No Insulin Coverage Nystatin (Nystatin Powder 15 Gm Bottle) 1 appl TOPICAL TID [facility]; Protocol Last Admin: 04/13/25 09:50 Dose: 1 appl Documented By: DAVID Potassium Chloride (Potassium Chloride Er 20 Meq Tab.Er.Prt) 40 meq PO BID [facility] Stop: 04/13/25 21:01 Last Admin: 04/13/25 09:49 Dose: 40 meq Documented By: DAVID Sodium Chloride (0.9 % Sodium Chloride Flush 3 Ml Syringe) 3 ml IVFLUSH QSHIFT [facility] Last Admin: 04/13/25 09:48 Dose: 3 ml Documented By: DAVID Labs 04/12/25 10:34 04/13/25 06:33 Labs: Laboratory Results - last 24 hr 04/12/25 04/12/25 04/13/25 15:57 20:33 06:33 Anion Gap 12 Estim Creat Clear Calc 73.9 Estimated GFR 54 POC Glucose 104 99 Random Glucose 87 Calcium 8.7 B-Natriuretic Peptide 346 H 04/13/25 04/13/25 06:58 11:06 Anion Gap Estim Creat Clear Calc Estimated GFR POC Glucose 89 93 Random Glucose Calcium B-Natriuretic Peptide Microbiology Microbiology Results: Microbiology 04/09/25 17:33 Blood Culture - Preliminary Blood - Venous No growth after 48 hours. 04/09/25 17:33 Blood Culture - Preliminary Blood - Venous No growth after 48 hours. 04/09/25 Unknown Urine Culture - Final Urine clean catch - Clean Catch Midstream No growth. Assessment and Plan (1) HTN (hypertension): Status: Acute Plan 69M PMH chronic hypoxic respiratory failure on 3 L home O2, chronic systolic and diastolic CHF, chronic AFib, morbid obesity, hypertension, LALI presented with shortness of breath and worsening edema Acute on chronic hypoxic respiratory failure due to acute on chronic systolic and diastolic CHF So far negative 5.9 L continue bumex infusion, wean O2 Monitor renal function/lytes Monitor I&O Replace potassium OSH/OHS with chronic hypercapneic respiratory failure avoid oxygen toxicity, goal sats 90-93% BIPA at night, will benefit from sleep study Acute kidney injury, likely from cardiorenal syndrome continue diuresis, monitor, hold lisinopril Diabetes Insulin sliding scale Chronic AFib on Eliquis Morbid obesity Weight loss advised Mood disorder Duloxetine Gout Allopurinol DVT prophylaxis on Eliquis Full code reason for continued hospitalization: Hypoxia, IV diuresis Quality Stroke Does the patient have a stroke diagnosis?: No VTE Prior VTE?: No VTE Risk Level:: Medical - moderate - high VTE Device Contraindication: Treatment Not Indicated VTE Drug Contraindication: N/A - Med Ordered
[2025-04-13 15:56] LABS: Glucose, Whole Blood 108 mg/dL (60-115)
[2025-04-13 19:50] LABS: Glucose, Whole Blood 127 mg/dL (60-115)
[2025-04-14 03:04] VITALS: BP 154/80; PULSE 59; RESP 18; TEMP 36.3; O2SAT 97
[2025-04-14 06:00] VITALS: BMI 51.8
[2025-04-14 07:06] VITALS: BP 157/80; PULSE 58; RESP 20; TEMP 36.2; O2SAT 94
[2025-04-14 07:50] LABS: Glucose, Whole Blood 125 mg/dL (60-115)
--- NOTE | 2025-04-14 07:59 | P.PNIM_ITS ---
Subjective Subjective Date of Service: 04/14/25 Interval History: Seen and examined this morning Interval history: Reports improvement in dyspnea. Still with edema but no pain. -2.4L last 24h, - 8.2L this admission. Continues on 5L (used 3-4 at home) K 3.1 Physical Exam 2 Vital Signs: Vital Signs: Last Vital Signs Temp 97.1 F 04/14/25 07:06 Pulse 58 04/14/25 07:06 Resp 20 04/14/25 07:06 BP 157/80 H 04/14/25 07:06 Pulse Ox 94 04/14/25 07:06 O2 Del Method Nasal Cannula 04/14/25 07:06 O2 Flow Rate 6 04/14/25 07:06 FiO2 50 04/12/25 23:23 Oxygen Flow Rate 6 04/09/25 17:10 BMI result Body Mass Index 51.8 Constitutional - Awake and Alert, No apparent distress Eyes - PERRL Cardiovascular - S1S2, RRR, 3+ edema Respiratory - Normal lung expansion, Normal respiratory effort, No respiratory distress, CTA bilaterally Extremities - no calf tenderness bilaterally, no swelling Skin - Warm/Dry. fungal rash intertriginous areas Neurological - Alert & oriented x3 Psychological - Appropriate affect Objective Data Active Medications Acetaminophen (Acetaminophen 325 Mg Tablet) 975 mg PO Q6H PRN PRN Reason: Pain, Mild 1-3,fever,headache Last Admin: 04/11/25 19:42 Dose: 975 mg Documented By: ESTELA Allopurinol (Allopurinol 300 Mg Tablet) 300 mg PO BID [facility] Last Admin: 04/13/25 21:08 Dose: 300 mg Documented By: EVELYN Amlodipine Besylate (Amlodipine Besylate 5 Mg Tablet) 5 mg PO DAILY [facility]; Protocol Last Admin: 04/13/25 09:49 Dose: 5 mg Documented By: DAVID Apixaban (Apixaban 5 Mg Tablet) 5 mg PO BID [facility] Last Admin: 04/13/25 21:08 Dose: 5 mg Documented By: EVELYN Calcium Carbonate (Calcium Carbonate 750 Mg Tab.Chew) 750 mg PO Q4H PRN PRN Reason: Heartburn Dextrose (Dextrose 50 % 25 Gm/50 Ml Syringe) 25 gm IVPUSH Q15M PRN; Protocol PRN Reason: per Hypoglycemia Standing Ord. Duloxetine HCl (Duloxetine Hcl 30 Mg Capsule.) 30 mg PO BID [facility] Last Admin: 04/13/25 21:08 Dose: 30 mg Documented By: EVELYN Glucose (Glucose Gel 15 Gm Gel..Gram.) 15 gm PO Q15M PRN; Protocol PRN Reason: per Hypoglycemia Standing Ord. Bumetanide 25 mg/ IV (Miscellaneous Supplies) 100 mls @ 1 mls/hr IVCONT .Q24H [facility] Last Admin: 04/13/25 10:41 Dose: 0.25 mg/hr, 1 mls/hr Documented By: DAVID Insulin Human Lispro (Insulin Lispro 100 Unit/Ml 3 Ml Vial) 0 unit SUBCUT QIDACHS [facility]; Protocol Last Admin: 04/13/25 21:09 Dose: Not Given Documented By: EVELYN Non-Admin Reason: No Insulin Coverage Nystatin (Nystatin Powder 15 Gm Bottle) 1 appl TOPICAL TID [facility]; Protocol Last Admin: 04/13/25 21:09 Dose: 1 appl Documented By: EVELYN Sodium Chloride (0.9 % Sodium Chloride Flush 3 Ml Syringe) 3 ml IVFLUSH QSHIFT [facility] Last Admin: 04/13/25 21:08 Dose: 3 ml Documented By: EVELYN Labs 04/12/25 10:34 04/14/25 09:35 Labs: Laboratory Results - last 24 hr 04/13/25 04/13/25 04/13/25 11:06 15:53 19:41 POC Glucose 93 108 127 H 04/14/25 07:46 POC Glucose 125 H Assessment and Plan (1) HTN (hypertension): Status: Acute Plan 69M PMH chronic hypoxic respiratory failure on 3 L home O2, chronic systolic and diastolic CHF, chronic AFib, morbid obesity, hypertension, LALI presented with shortness of breath and worsening edema Acute on chronic hypoxic respiratory failure due to acute on chronic systolic and diastolic CHF So far negative 8.2 L continue bumex infusion, wean O2 Monitor renal function/lytes Monitor I&O Replace potassium Counseled on fluid and salt restrictions at home OSH/OHS with chronic hypercapneic respiratory failure avoid oxygen toxicity, goal sats 90-93% BIPA at night, will benefit from sleep study Acute kidney injury, likely from cardiorenal syndrome continue diuresis, monitor, hold lisinopril Diabetes Insulin sliding scale Chronic AFib on Eliquis Morbid obesity Weight loss advised Mood disorder Duloxetine Gout Allopurinol Intertriginous candidiasis Nystatin powder Give p.o. fluconazole x1, can continue weekly DVT prophylaxis on Eliquis Full code reason for continued hospitalization: Hypoxia, IV diuresis Quality Stroke Does the patient have a stroke diagnosis?: No VTE Prior VTE?: No VTE Risk Level:: Medical - moderate - high VTE Device Contraindication: Treatment Not Indicated VTE Drug Contraindication: N/A - Med Ordered
[2025-04-14] MEDS: 0.9 % Sodium Chloride Flush 3 ML SYRINGE IVFLUSH ×2 (08:42→15:49)
[2025-04-14 10:53] LABS: Anion Gap 13 (12-20); Blood Urea Nitrogen 17 mg/dL (9-16); Calcium 9.4 mg/dL (8.4-10.2); Chloride 92 mmol/L (96-108); Creatinine Clr Calc Pharmacy 69.7; Estimated Glomerular Filt Rate 51; Potassium 3.1 mmol/L (3.3-5.1); Sodium 145 mmol/L (135-145)
[2025-04-14 10:58] LABS: Carbon Dioxide 43 mmol/L (22-29)
[2025-04-14 11:28] LABS: Glucose, Whole Blood 101 mg/dL (60-115)
[2025-04-14 11:31] VITALS: BP 158/70; PULSE 50; RESP 20; TEMP 36.3; O2SAT 93
[2025-04-14] MEDS: Bumetanide 25 MG in Container,Empty 0 ML IVCONT (11:58)
[2025-04-14 15:24] VITALS: BP 154/74; PULSE 65; RESP 18; TEMP 36.1; O2SAT 95
[2025-04-14] MEDS: Potassium Chloride Packet 20 MEQ PACKET 40 MEQ PO (15:46)
[2025-04-14 16:18] LABS: Glucose, Whole Blood 117 mg/dL (60-115)
[2025-04-14 19:50] VITALS: BP 146/69; PULSE 84; RESP 18; TEMP 36.5; O2SAT 92
[2025-04-14 20:11] LABS: Glucose, Whole Blood 161 mg/dL (60-115)
[2025-04-14 23:39] VITALS: BP 130/69; PULSE 66; RESP 16; TEMP 36.6; O2SAT 97
[2025-04-15] VITALS (8 sets, daily range): BP systolic 122–158; BP diastolic 60–81; PULSE 57–69; RESP 18–22; TEMP 36.2–36.6; O2SAT 90–98; BMI 51.4
--- NOTE | 2025-04-15 02:49 | PC.NURSE ---
Pt presently on BiPap O2 sats 97%. Respiratory therapist notified to titrate Bipap as goal for O2 sats is 88-92%
[2025-04-15] MEDS: 0.9 % Sodium Chloride Flush 3 ML SYRINGE IVFLUSH ×3 (05:07→21:07)
[2025-04-15 07:13] LABS: Glucose, Whole Blood 93 mg/dL (60-115)
[2025-04-15 07:40] LABS: Anion Gap 13 (12-20); Blood Urea Nitrogen 15 mg/dL (9-16); Calcium 9.3 mg/dL (8.4-10.2); Carbon Dioxide 41 mmol/L (22-29); Chloride 97 mmol/L (96-108); Creatinine Clr Calc Pharmacy 67.4; Estimated Glomerular Filt Rate 49; Potassium 3.3 mmol/L (3.3-5.1); Sodium 148 mmol/L (135-145)
[2025-04-15] MEDS: Potassium Chloride Packet 20 MEQ PACKET 40 MEQ PO (08:30)
--- NOTE | 2025-04-15 10:18 | HO.PM.IMPN ---
Subjective Subjective Date of Service: 04/15/25 Interval History: Seen and examined this morning Interval history: Reports improvement in dyspnea. Continues to diuresse well, negative 10.3 L, breathing is better O2 down to 3 L Physical Exam Vital Signs: Vital Signs: Last Vital Signs Temp 97.4 F 04/15/25 07:12 Pulse 58 04/15/25 07:12 Resp 18 04/15/25 07:12 BP 141/61 H 04/15/25 07:12 Pulse Ox 92 04/15/25 07:12 O2 Del Method Nasal Cannula 04/15/25 07:12 O2 Flow Rate 3.5 04/15/25 07:12 FiO2 50 04/12/25 23:23 Oxygen Flow Rate 6 04/09/25 17:10 BMI result Body Mass Index 51.4 Constitutional - Awake and Alert, No apparent distress Eyes - PERRL Cardiovascular - S1S2, RRR, 3+ edema Respiratory - Normal lung expansion, Normal respiratory effort, No respiratory distress, CTA bilaterally Extremities - no calf tenderness bilaterally, no swelling Skin - Warm/Dry. fungal rash intertriginous areas Neurological - Alert & oriented x3 Psychological - Appropriate affect Objective Data Active Medications Acetaminophen (Acetaminophen 325 Mg Tablet) 975 mg PO Q6H PRN PRN Reason: Pain, Mild 1-3,fever,headache Last Admin: 04/11/25 19:42 Dose: 975 mg Documented By: ESTELA Allopurinol (Allopurinol 300 Mg Tablet) 300 mg PO BID [facility] Last Admin: 04/15/25 08:29 Dose: 300 mg Documented By: KARI Amlodipine Besylate (Amlodipine Besylate 5 Mg Tablet) 5 mg PO DAILY [facility]; Protocol Last Admin: 04/15/25 08:29 Dose: 5 mg Documented By: KARI Apixaban (Apixaban 5 Mg Tablet) 5 mg PO BID [facility] Last Admin: 04/15/25 08:30 Dose: 5 mg Documented By: KARI Calcium Carbonate (Calcium Carbonate 750 Mg Tab.Chew) 750 mg PO Q4H PRN PRN Reason: Heartburn Dextrose (Dextrose 50 % 25 Gm/50 Ml Syringe) 25 gm IVPUSH Q15M PRN; Protocol PRN Reason: per Hypoglycemia Standing Ord. Duloxetine HCl (Duloxetine Hcl 30 Mg Capsule.Dr) 30 mg PO BID [facility] Last Admin: 04/15/25 08:30 Dose: 30 mg Documented By: KARI Glucose (Glucose Gel 15 Gm Gel..Gram.) 15 gm PO Q15M PRN; Protocol PRN Reason: per Hypoglycemia Standing Ord. Bumetanide 25 mg/ IV (Miscellaneous Supplies) 100 mls @ 1 mls/hr IVCONT .Q24H [facility] Last Admin: 04/14/25 11:58 Dose: 0.25 mg/hr, 1 mls/hr Documented By: KARI Insulin Human Lispro (Insulin Lispro 100 Unit/Ml 3 Ml Vial) 0 unit SUBCUT QIDACHS [facility]; Protocol Last Admin: 04/15/25 07:19 Dose: Not Given Documented By: KARI Non-Admin Reason: No Insulin Coverage Nystatin (Nystatin Powder 15 Gm Bottle) 1 appl TOPICAL TID [facility]; Protocol Last Admin: 04/15/25 08:31 Dose: 1 appl Documented By: KARI Potassium Chloride (Potassium Chloride Packet 20 Meq Packet) 40 meq PO DAILY [facility] Last Admin: 04/15/25 08:30 Dose: 40 meq Documented By: KARI Sodium Chloride (0.9 % Sodium Chloride Flush 3 Ml Syringe) 3 ml IVFLUSH QSHIFT [facility] Last Admin: 04/15/25 08:36 Dose: Not Given Documented By: KARI Non-Admin Reason: IV Running Labs 04/12/25 10:34 04/15/25 06:30 Labs: Laboratory Results - last 24 hr 04/14/25 04/14/25 04/14/25 09:35 11:20 16:13 Hold Purple Top Anion Gap 13 Estim Creat Clear Calc 69.7 Estimated GFR 51 POC Glucose 101 117 H Random Glucose 119 H Calcium 9.4 D 04/14/25 04/15/25 04/15/25 20:07 06:30 07:10 Hold Purple Top SEE NOTE Anion Gap 13 Estim Creat Clear Calc 67.4 Estimated GFR 49 POC Glucose 161 H 93 Random Glucose 90 Calcium 9.3 Microbiology Microbiology Results: Microbiology 04/09/25 17:33 Blood Culture - Final Blood - Venous No growth after 5 days. 04/09/25 17:33 Blood Culture - Final Blood - Venous No growth after 5 days. Assessment and Plan (1) HTN (hypertension): Status: Acute Plan 69M PMH chronic hypoxic respiratory failure on 3 L home O2, chronic systolic and diastolic CHF, chronic AFib, morbid obesity, hypertension, LALI presented with shortness of breath and worsening edema Acute on chronic hypoxic respiratory failure due to acute on chronic systolic and diastolic CHF has been on Bumex drip since 04/04, oxygen has improved, So far negative 10.4 L Creatine is up but relatively stable, Na+ 148 Stop Bumex drip and start PO later today Monitor renal function/lytes Monitor I&O Replace potassium Counseled on fluid and salt restrictions at home OSH/OHS with chronic hypercapneic respiratory failure avoid oxygen toxicity, goal sats 90-93% BIPA at night, will benefit from sleep study Acute kidney injury on CKD 3, likely from cardiorenal syndrome continue diuresis, monitor, hold lisinopril Metabolic alkalosis bicab 41 Diamox Hypernatremia d/t Bumex Monitor, scale bicab on diuretic increase water intake a little Diabetes Insulin sliding scale Chronic AFib on Eliquis Morbid obesity Weight loss advised Mood disorder Duloxetine Gout Allopurinol Intertriginous candidiasis Nystatin powder Give p.o. fluconazole x1, can continue weekly DVT prophylaxis on Eliquis Full code reason for continued hospitalization: Hypoxia, IV diuresis Quality Stroke Does the patient have a stroke diagnosis?: No VTE Prior VTE?: No VTE Risk Level:: Medical - moderate - high VTE Device Contraindication: Treatment Not Indicated VTE Drug Contraindication: N/A - Med Ordered
[2025-04-15 11:39] LABS: Glucose, Whole Blood 161 mg/dL (60-115)
[2025-04-15 16:16] LABS: Glucose, Whole Blood 73 mg/dL (60-115)
[2025-04-15 20:49] LABS: Glucose, Whole Blood 113 mg/dL (60-115)
[2025-04-16] VITALS (8 sets, daily range): BP systolic 119–162; BP diastolic 62–90; PULSE 50–67; RESP 18–22; TEMP 36–36.3; O2SAT 92–100; BMI 51.8
[2025-04-16 07:20] LABS: Anion Gap 15 (12-20); Blood Urea Nitrogen 24 mg/dL (9-16); Calcium 9.4 mg/dL (8.4-10.2); Carbon Dioxide 38 mmol/L (22-29); Chloride 98 mmol/L (96-108); Creatinine Clr Calc Pharmacy 56.6; Estimated Glomerular Filt Rate 40; Potassium 3.2 mmol/L (3.3-5.1); Sodium 148 mmol/L (135-145)
[2025-04-16 07:28] LABS: B Type Natriuretic Peptide 191 pg/mL (<100)
[2025-04-16 07:59] LABS: Glucose, Whole Blood 103 mg/dL (60-115)
[2025-04-16] MEDS: 0.9 % Sodium Chloride Flush 3 ML SYRINGE IVFLUSH ×3 (09:34→21:25)
--- NOTE | 2025-04-16 09:35 | PM.CNNEP ---
History of Present Illness Reason for Consult Consult date: 04/16/25 Chief Complaint Chief complaint: Hypoxic respiratory failure History of Present Illness Narrative: 69 y/o male with a medical history of systlic and diastolic congestive heart failure, afib, mild aortic stenosis, obesity, hypertension, LALI on home oxygen. 04/09 presented worsening edema and pain in his lower extremities, shortness of breath x1 week. patient has been receiving diuretics since admission for management of fluid overload. Nephrology consulted for FOREST. creatinine - baseline around 0.91-1.15 04/09 creatinine 1.66, trended down to 1.39 on 04/14. Now up to 1.71 today, 04/16. Patient had 1x dose of acetazolamide 04/15; previously on bumex IV infusion. Diuretics have since been held. Patient reports he is doing ok. States his lower extremity edema is looking much better than when he came in. States breathing feels ok- still remains on NC. Denies other concerns/complaints. He continues to make urine. Review of Systems Constitutional: Reports no additional constitutional complaints Cardiovascular: Denies chest pain, Denies leg edema, Denies lightheadedness and Denies dyspnea Respiratory: Denies dyspnea Gastrointestinal: Denies abdominal pain, Denies diarrhea, Denies nausea and Denies vomiting Genitourinary: Reports hematuria, Denies oliguria, Denies dysuria and Denies flank pain Musculoskeletal: Denies back pain and Denies arthralgias Skin/Breast: Denies rash PMFSH Past Medical History Medical History Screening PSA (prostate specific antigen) Morbid obesity Elevated serum creatinine Right heart failure Leg pain FOREST (acute kidney injury) Leukocytosis LALI (obstructive sleep apnea) Hyperlipidemia HTN (hypertension) Diastolic heart failure Newly diagnosed diabetes Acute gout of left foot Chronic fatigue Pulmonary arterial hypertension Cerebrovascular accident (CVA) Family History Family History Father Blood clot in vein Mother Cancer Surgical History Surgical History Hx of shoulder surgery No pertinent past surgical history Social History Social History Household Members: Family Housing: Apartment Do you presently have visiting nurse or other home services: No Unable to assess alcohol history related to: Unable to respond Alcohol intake: former Patient Tobacco Use Status: Never used Tobacco Years Smoked: nonsmoker Substance Use Type: Unknown Advance Directives Date on File: 12/03/20 service: No Current occupational status: unemployed Meds Allergies Allergy/AdvReac Type Severity Reaction Status Date / Time No Known Allergies Allergy Verified 04/09/25 17:17 Active Medications: Current Medications Acetaminophen (Acetaminophen 325 Mg Tablet) 975 mg PO Q6H PRN PRN Reason: Pain, Mild 1-3,fever,headache Last Admin: 04/11/25 19:42 Dose: 975 mg Allopurinol (Allopurinol 300 Mg Tablet) 300 mg PO BID [facility] Last Admin: 04/16/25 09:34 Dose: 300 mg Amlodipine Besylate (Amlodipine Besylate 5 Mg Tablet) 5 mg PO DAILY [facility]; Protocol Last Admin: 04/16/25 09:34 Dose: 5 mg Apixaban (Apixaban 5 Mg Tablet) 5 mg PO BID [facility] Last Admin: 04/16/25 09:34 Dose: 5 mg Calcium Carbonate (Calcium Carbonate 750 Mg Tab.Chew) 750 mg PO Q4H PRN PRN Reason: Heartburn Dextrose (Dextrose 50 % 25 Gm/50 Ml Syringe) 25 gm IVPUSH Q15M PRN; Protocol PRN Reason: per Hypoglycemia Standing Ord. Duloxetine HCl (Duloxetine Hcl 30 Mg Capsule.Dr) 30 mg PO BID [facility] Last Admin: 04/16/25 09:34 Dose: 30 mg Glucose (Glucose Gel 15 Gm Gel..Gram.) 15 gm PO Q15M PRN; Protocol PRN Reason: per Hypoglycemia Standing Ord. Insulin Human Lispro (Insulin Lispro 100 Unit/Ml 3 Ml Vial) 0 unit SUBCUT QIDACHS [facility]; Protocol Last Admin: 04/16/25 07:51 Dose: Not Given Nystatin (Nystatin Powder 15 Gm Bottle) 1 appl TOPICAL TID [facility]; Protocol Last Admin: 04/16/25 09:38 Dose: 1 appl Potassium Chloride (Potassium Chloride Packet 20 Meq Packet) 40 meq PO DAILY [facility] Last Admin: 04/16/25 09:44 Dose: 40 meq Sodium Chloride (0.9 % Sodium Chloride Flush 3 Ml Syringe) 3 ml IVFLUSH QSHIFT [facility] Last Admin: 04/16/25 09:34 Dose: 3 ml Physical Exam Vital Signs: Last Vital Signs Temp 97.0 F 04/16/25 06:56 Pulse 57 04/16/25 06:56 Resp 18 04/16/25 06:56 BP 134/68 04/16/25 06:56 Pulse Ox 96 04/16/25 06:56 O2 Del Method Nasal Cannula 04/16/25 06:56 O2 Flow Rate 3.5 04/16/25 06:56 FiO2 30 04/16/25 04:00 Oxygen Flow Rate 6 04/09/25 17:10 BMI result Body Mass Index 51.8 Const General: no acute distress and awake; No alert Resp Effort & Inspection: normal respiratory effort and able to speak in complete sentences Auscultation: crackles Cardio Rate: regular rate Rhythm: abnormal rhythm Heart sounds: S1 normal heart sound present and S2 normal heart sound present GI Palpation (GI): Soft to palpation and nontender General: Yes no CVA tenderness Back/Spine/Pelvis Back: no CVA tenderness Skin Rashes: no rashes Extrem General: Yes edema (+2 pitting BLE edema.) Results Lab Results 04/12/25 10:34 04/16/25 06:51 Lab results: Chemistry 04/14/25 04/15/25 04/16/25 09:35 06:30 06:51 Sodium 145 148 H 148 H Potassium 3.1 L 3.3 3.2 L Carbon Dioxide 43 H* 41 H* 38 H BUN 17 H 15 24 H Creatinine 1.39 1.43 H 1.71 H Calcium 9.4 D 9.3 9.4 Assessment and Plan (1) Acute on chronic diastolic (congestive) heart failure: Status: Acute (2) Acute kidney injury: Status: Acute Plan Patient with FOREST likely secondary to decreased circulating volume from heart failure. patient appears to be intravascularly dry though overall remains fluid overloaded. recommend checking serum albumin levels; if low, should give albumin and resume diuresis. if albumin levels are normal, should hold diuretic for a day to allow for fluid re-equilibration and then may consider re-starting diuretic tomorrow. recommend getting repeat chest xray to assess status of pulmonary edema. continue daily renal function and electrolyte studies recommend regular blood pressure checks recommend avoiding nephrotoxins continue supportive care Discussed with Dr Lorenzo. Procedures Date of Service Date of Service: 04/16/25
[2025-04-16] MEDS: Potassium Chloride Packet 20 MEQ PACKET 40 MEQ PO (09:44)
--- NOTE | 2025-04-16 10:39 | PM.CNCAR ---
History of Present Illness History of Present Illness Date of Service: 04/16/25 Chief complaint: Hypoxic respiratory failure Narrative: This is a cardiology consultation regarding question of congestive heart failure. Patient has been here more than a week. It seems that he initially presented with worsening edema and some shortness of breath. He was diagnosed with acute hypoxic respiratory failure and it seems that he has been on Bumex drip for the last few days. Now off. Per input/output data, he is -12 L. Otherwise, he has morbid obesity and weighs over 300 lb. In the sleep study, negative for sleep apnea in the sitting position but thought to be having obesity hypoventilation pattern. Also has atrial fibrillation on Eliquis. No documented coronary history. Review of Systems Review of Systems: Yes all other systems are reviewed and are negative Constitutional: Constitutional: Reports as per HPI and Reports no additional constitutional complaints Eyes: Eyes: Reports as per HPI and Denies no additional eye complaints ENT: Denies system reviewed and no additional complaints, except as documented and Reports as per HPI Cardiovascular: Cardiovascular: Reports as per HPI, Reports no additional cardiovascular complaints, Denies acrocyanosis, Denies cool extremities, Denies chest pain, Denies leg edema, Denies lightheadedness, Denies palpitations and Reports dyspnea Respiratory: Respiratory: Reports as per HPI, Denies no additional respiratory complaints and Reports dyspnea Gastrointestinal: Gastrointestinal: Reports as per HPI and Denies no additional gastrointestinal complaints Genitourinary: Genitourinary: Reports no additional male genitourinary complaints and Reports as per HPI Musculoskeletal: Musculoskeletal: Reports no additional musculoskeletal complaints and Reports as per HPI Integumentary/Breasts: Skin/Breast: Reports system reviewed and no additional complaints, except as docu Neurologic: Reports system reviewed and no additional complaints, except as documented and Reports as per HPI Psychiatric: Psychiatric: Reports no additional psychiatric complaints and Reports as per HPI Endocrine: Endocrine: Reports no additional endocrine complaints, Reports as per HPI and Denies palpitations Hematologic/Lymphatic: Hematologic/Lymphatic: Reports no additional hematologic/lymphatic complaints and Reports as per HPI Allergic/Immunologic: Allergic/Immunologic: Reports no additional allergic/immunologic complaints and Reports as per HPI [facility] Past Medical History Medical History Screening PSA (prostate specific antigen) Morbid obesity Elevated serum creatinine Right heart failure Leg pain FOREST (acute kidney injury) Leukocytosis LALI (obstructive sleep apnea) Hyperlipidemia HTN (hypertension) Diastolic heart failure Newly diagnosed diabetes Acute gout of left foot Chronic fatigue Pulmonary arterial hypertension Cerebrovascular accident (CVA) Family History Family History Father Blood clot in vein Mother Cancer Surgical History Surgical History Hx of shoulder surgery No pertinent past surgical history Social History Social History Household Members: Family Housing: Apartment Do you presently have visiting nurse or other home services: No Unable to assess alcohol history related to: Unable to respond Alcohol intake: former Patient Tobacco Use Status: Never used Tobacco Years Smoked: nonsmoker Substance Use Type: Unknown Advance Directives Date on File: 12/03/20 service: No Current occupational status: unemployed Meds Allergies Allergy/AdvReac Type Severity Reaction Status Date / Time No Known Allergies Allergy Verified 04/09/25 17:17 Active Medications: Current Medications Acetaminophen (Acetaminophen 325 Mg Tablet) 975 mg PO Q6H PRN PRN Reason: Pain, Mild 1-3,fever,headache Last Admin: 04/11/25 19:42 Dose: 975 mg Allopurinol (Allopurinol 300 Mg Tablet) 300 mg PO BID [facility] Last Admin: 04/16/25 09:34 Dose: 300 mg Amlodipine Besylate (Amlodipine Besylate 5 Mg Tablet) 5 mg PO DAILY [facility]; Protocol Last Admin: 04/16/25 09:34 Dose: 5 mg Apixaban (Apixaban 5 Mg Tablet) 5 mg PO BID [facility] Last Admin: 04/16/25 09:34 Dose: 5 mg Calcium Carbonate (Calcium Carbonate 750 Mg Tab.Chew) 750 mg PO Q4H PRN PRN Reason: Heartburn Dextrose (Dextrose 50 % 25 Gm/50 Ml Syringe) 25 gm IVPUSH Q15M PRN; Protocol PRN Reason: per Hypoglycemia Standing Ord. Duloxetine HCl (Duloxetine Hcl 30 Mg Capsule.Dr) 30 mg PO BID [facility] Last Admin: 04/16/25 09:34 Dose: 30 mg Glucose (Glucose Gel 15 Gm Gel..Gram.) 15 gm PO Q15M PRN; Protocol PRN Reason: per Hypoglycemia Standing Ord. Insulin Human Lispro (Insulin Lispro 100 Unit/Ml 3 Ml Vial) 0 unit SUBCUT QIDACHS [facility]; Protocol Last Admin: 04/16/25 07:51 Dose: Not Given Nystatin (Nystatin Powder 15 Gm Bottle) 1 appl TOPICAL TID [facility]; Protocol Last Admin: 04/16/25 09:38 Dose: 1 appl Potassium Chloride (Potassium Chloride Packet 20 Meq Packet) 40 meq PO DAILY [facility] Last Admin: 04/16/25 09:44 Dose: 40 meq Sodium Chloride (0.9 % Sodium Chloride Flush 3 Ml Syringe) 3 ml IVFLUSH QSHIFT [facility] Last Admin: 04/16/25 09:34 Dose: 3 ml Physical Exam Vital Signs: Vital Signs: Last Vital Signs Temp 97.0 F 04/16/25 06:56 Pulse 57 04/16/25 06:56 Resp 18 04/16/25 06:56 BP 134/68 04/16/25 06:56 Pulse Ox 96 04/16/25 06:56 O2 Del Method Nasal Cannula 04/16/25 06:56 O2 Flow Rate 3.5 04/16/25 06:56 FiO2 30 04/16/25 04:00 Oxygen Flow Rate 6 04/09/25 17:10 BMI result Body Mass Index 51.8 Const: General: comfortable and no acute distress Orientation/consciousness: patient oriented x3 HEENT: Other: Unremarkable Head: Yes normal to inspection Neck: Neck: Yes normal visual inspection Chest: Chest palpation & inspection: normal inspection of the chest Resp: Auscultation: clear to auscultation bilaterally Cardio: Palpation: normal PMI Heart sounds: S1 normal heart sound present, S2 normal heart sound present, no gallops, no murmurs and no rubs GI: Palpation (GI): Soft to palpation Back/Spine/Pelvis: Other: unremarkable Skin: General skin exam: no rashes or lesions noted Neuro: General: patient oriented x3 Extrem: General: Yes normal to inspection Psych: Mental Status: mental status grossly normal Objective Labs and Meds 04/12/25 10:34 04/16/25 06:51 Lab results: Laboratory Results - last 24 hr 04/15/25 04/15/25 04/15/25 11:35 16:12 20:45 Hold Purple Top Sodium Potassium Chloride Carbon Dioxide Anion Gap BUN Creatinine Estim Creat Clear Calc Estimated GFR POC Glucose 161 H 73 113 Random Glucose Calcium B-Natriuretic Peptide 07/14/25 07/14/25 06:51 07:46 Hold Purple Top SEE NOTE Sodium 148 H Potassium 3.2 L Chloride 98 Carbon Dioxide 38 H Anion Gap 15 BUN 24 H Creatinine 1.71 H Estim Creat Clear Calc 56.6 Estimated GFR 40 POC Glucose 103 Random Glucose 111 Calcium 9.4 B-Natriuretic Peptide 191 H ECG Interpretation: EKG with atrial fibrillation at a rate of 63/Min. Rightward axis. Nonspecific ST-T changes. Similar to prior EKG from October of this year. Assessment and Plan (1) Acute on chronic diastolic (congestive) heart failure: Status: Acute Clinically, does not look overtly volume overloaded. Off Bumex drip. Eventually, back to home regimen for diuretics. Repeat echocardiogram. (2) Persistent atrial fibrillation: Status: Acute Has been present at least for 6 months. With morbid obesity, may not be a good candidate for rhythm control. He is on anticoagulation. He is not on any rate control meds but according to prior consultation, it seems telemetry had shown second-degree AV block including Wenckebach/2:1. Hence he is spontaneously rate controlled. Procedures Date of Service Date of Service: 04/16/25
[2025-04-16 11:41] LABS: Glucose, Whole Blood 110 mg/dL (60-115)
--- NOTE | 2025-04-16 12:00 | CA_ITS ---
Transthoracic Echocardiogram Patient (Last, First, Middle): Chuck Card, Gender: Male Date of : 1955 Age: 69 Procedure Date: 04/16/2025 Procedure Type: Transthoracic Echocardiogram Location: [facility] [place] Height: 170. cm Weight: 149.69 kg BSA: 2.50 m2 Heart Rate: 51 bpm BP: 134 / 68 mmHg Compressor Stations Superintendent: GERONIMO Referring MD: Sorin Chery MD Symptoms: heart failure Study Quality: Adequate w contrast ECG Rhythm: Atrial Fibrillation Conclusions: - The left ventricular systolic function is mildly decreased. Visually estimated LVEF about 50%. - Moderately increased right ventricular cavity size. - There is moderate calcification of the aortic valve. There is mild aortic valve stenosis. - There is moderate mitral annular calcification. Findings Procedure Information Contrast agent, definity, is being given per protocol without apparent complications. Left Ventricle Normal left ventricular cavity size. There is moderately increased left ventricular wall thickness. The left ventricular systolic function is mildly decreased. There is mild global hypokinesis. Diastolic function is indeterminate on the basis of available data. Visually estimated LVEF about 50%. Right Ventricle Moderately increased right ventricular cavity size. There is mildly decreased right ventricular systolic function. Atria The left atrium is severely dilated. The right atrium is mildly dilated. Aortic Valve There is moderate calcification of the aortic valve. There is mild aortic valve stenosis. There is no aortic valve regurgitation. Mitral Valve There is moderate mitral annular calcification. There is no mitral valve regurgitation. There is no mitral valve stenosis. Pulmonic Valve The pulmonic valve is likely normal. Tricuspid Valve There is mild tricuspid valve regurgitation. There is no evidence of pulmonary hypertension. Great Vessels The asc aorta and aortic arch are normal in size. Venous The inferior vena cava is mildly dilated and collapses greater than 50% with inspiration. Pericardium/Pleural There is no evidence of pericardial effusion. Prior Study Comparison No significant change compared to prior study dated: 10/30/2024. Measurements 2D Linear Measurements IVSd: 1.28 0.6-0.9/0.6-1.0 cm LVIDd: 5.47 3.9-5.3/4.2-5.9 cm LVIDd Index: 2.19 2.4-3.2/2.2-3.1 cm/m2 LVIDs: 4.07 2.0-3.6 cm LVPWd: 1.59 0.7-1.1 cm LA Diam: 4.90 2.7-3.8/3.0-4.0 cm LAIDs Index: 1.96 1.5-2.3 cm/m2 LV Mass: 433.08 67-162/88-224 g LV Mass Index: 173.23 43-95/49-115 g/m2 LVOT Diam: 2.30 3.0+(-)1.3 cm 2D Systolic Function EF 4C: 53.30 >55% EF 2C: 69.50 >55% EF BiP: 62.00 >55% Mitral Valve MV VTI: 0.37 MV Pk Srikanth: 1.48 MV Mn Srikanth: 0.70 MV Pk Grad: 9.00 MV Mn Grad: 3.00 MV Pk E: 1.25 MV Decel Time: 246.00 E'Lateral: 5.98 E'Medial: 4.97 E/E' Med: 25.20 E/E' Lat: 20.90 PHT: 72.00 MVA PHT: 3.06 MVA Continuity: 2.04 Decel Barton: 5.08 Aortic Valve AoV Pk Srikanth: 2.29 AoV Mn Srikanth: 1.66 AoV VTI: 0.45 AoV Pk Grad: 21.00 Aov Mn Grad: 13.00 MILTON Cont.VTI: 1.70 LVOT LVOT Pk Srikanth: 0.86 LVOT Mn Srikanth: 0.62 LVOT VTI: 0.18 LVOT Pk Grad: 3.00 LVOT Mn Grad: 2.00 LVOT Diam: 2.30 LVOT Area: 4.15 Diastolic Function MV Pk E: 1.25 E'Medial: 4.97 E/E' Med: 25.20 E' Laterial: 5.98 E/E' Lat: 20.90 Right Ventricle TAPSE (mm): 17.50 TVS' Srikanth: 9.25 Tricuspid Valve TR Pk Srikanth: 2.02 TR Pk Grad: 16.00 RA Press: 8.00 RVSP: 24.00 Great Vessels Aorta Sinus of Valsalva: 3.70 2.0-3.5 cm Ao Asc: 3.70 2.1-3.4 cm Ao Arch: 3.00 Pulmonary Valve PV Pk Srikanth: 0.91 Peak PV Grad: 3.00 Updated in Other Vendor System with Status of Final Yves Campbell MD electronically signed on 04/16/2025 4:29:27 PM with status of Final
--- NOTE | 2025-04-16 12:22 | HO.PM.IMPN ---
Subjective Subjective Date of Service: 04/16/25 Interval History: Breathing is more comfortable, O2 sat is better., unfortunately sodlium level is rising and Cr is higher today Diuretics have been on hold since yesterday, so far negative 11 L Physical Exam Vital Signs: Vital Signs: Last Vital Signs Temp 96.9 F 04/16/25 10:53 Pulse 54 04/16/25 10:53 Resp 18 04/16/25 10:53 BP 119/62 04/16/25 10:53 Pulse Ox 100 04/16/25 10:53 O2 Del Method Nasal Cannula 04/16/25 10:53 O2 Flow Rate 3.5 04/16/25 10:53 FiO2 30 04/16/25 04:00 Oxygen Flow Rate 6 04/09/25 17:10 BMI result Body Mass Index 51.8 Constitutional - Awake and Alert, No apparent distress Eyes - PERRL Cardiovascular - S1S2, RRR, 2+ edema Respiratory - Normal lung expansion, Normal respiratory effort, No respiratory distress, CTA bilaterally Extremities - no calf tenderness bilaterally, no swelling Skin - Warm/Dry. fungal rash intertriginous areas Neurological - Alert & oriented x3 Psychological - Appropriate affect Objective Data Active Medications Acetaminophen (Acetaminophen 325 Mg Tablet) 975 mg PO Q6H PRN PRN Reason: Pain, Mild 1-3,fever,headache Last Admin: 04/11/25 19:42 Dose: 975 mg Documented By: ESTELA Allopurinol (Allopurinol 300 Mg Tablet) 300 mg PO BID [facility] Last Admin: 04/16/25 09:34 Dose: 300 mg Documented By: PADDY Amlodipine Besylate (Amlodipine Besylate 5 Mg Tablet) 5 mg PO DAILY [facility]; Protocol Last Admin: 04/16/25 09:34 Dose: 5 mg Documented By: PADDY Apixaban (Apixaban 5 Mg Tablet) 5 mg PO BID [facility] Last Admin: 04/16/25 09:34 Dose: 5 mg Documented By: PADDY Calcium Carbonate (Calcium Carbonate 750 Mg Tab.Chew) 750 mg PO Q4H PRN PRN Reason: Heartburn Dextrose (Dextrose 50 % 25 Gm/50 Ml Syringe) 25 gm IVPUSH Q15M PRN; Protocol PRN Reason: per Hypoglycemia Standing Ord. Duloxetine HCl (Duloxetine Hcl 30 Mg Capsule.) 30 mg PO BID [facility] Last Admin: 04/16/25 09:34 Dose: 30 mg Documented By: PADDY Glucose (Glucose Gel 15 Gm Gel..Gram.) 15 gm PO Q15M PRN; Protocol PRN Reason: per Hypoglycemia Standing Ord. Insulin Human Lispro (Insulin Lispro 100 Unit/Ml 3 Ml Vial) 0 unit SUBCUT QIDACHS [facility]; Protocol Last Admin: 04/16/25 11:59 Dose: Not Given Documented By: PADDY Non-Admin Reason: No Insulin Coverage Nystatin (Nystatin Powder 15 Gm Bottle) 1 appl TOPICAL TID [facility]; Protocol Last Admin: 04/16/25 09:38 Dose: 1 appl Documented By: PADDY Potassium Chloride (Potassium Chloride Packet 20 Meq Packet) 40 meq PO DAILY [facility] Last Admin: 04/16/25 09:44 Dose: 40 meq Documented By: PADDY Sodium Chloride (0.9 % Sodium Chloride Flush 3 Ml Syringe) 3 ml IVFLUSH QSHIFT [facility] Last Admin: 04/16/25 09:34 Dose: 3 ml Documented By: PADDY Labs 04/12/25 10:34 04/16/25 06:51 Labs: Laboratory Results - last 24 hr 04/15/25 04/15/25 04/16/25 16:12 20:45 06:51 Hold Purple Top SEE NOTE Anion Gap 15 Estim Creat Clear Calc 56.6 Estimated GFR 40 POC Glucose 73 113 Random Glucose 111 Calcium 9.4 B-Natriuretic Peptide 191 H 04/16/25 04/16/25 07:46 11:36 Hold Purple Top Anion Gap Estim Creat Clear Calc Estimated GFR POC Glucose 103 110 Random Glucose Calcium B-Natriuretic Peptide Microbiology Microbiology Results: Microbiology 04/09/25 17:33 Blood Culture - Final Blood - Venous No growth after 5 days. 04/09/25 17:33 Blood Culture - Final Blood - Venous No growth after 5 days. Assessment and Plan (1) HTN (hypertension): Status: Acute Plan 69M PMH chronic hypoxic respiratory failure on 3 L home O2, chronic systolic and diastolic CHF, chronic AFib, morbid obesity, hypertension, LALI presented with shortness of breath and worsening edema Acute on chronic hypoxic respiratory failure due to acute on chronic systolic and diastolic CHF has been on Bumex drip since 04/04, oxygen has improved, So far negative 11.5 L Creatine is up but relatively stable, Na+ 148 Bumex drip stopped 04/15 Monitor renal function/lytes Monitor I&O Replace potassium as needed Counseled on fluid and salt restrictions at home OSH/OHS with chronic hypercapneic respiratory failure avoid oxygen toxicity, goal sats 90-93% BIPA at night, will benefit from sleep study Acute kidney injury on CKD 3, likely from cardiorenal syndrome, Cr higher today diuretics on hold, hold lisinopril. Neprhology recommends checking albumin if low then diuresse if not then hold diuretics Metabolic alkalosis bicab 38 after diamox yesterday when bicab was 41 Hypernatremia d/t Bumex Monitor, scale bicab on diuretic increase water intake a little Diabetes Insulin sliding scale Chronic AFib on Eliquis Morbid obesity Weight loss advised Mood disorder Duloxetine Gout Allopurinol Intertriginous candidiasis Nystatin powder Give p.o. fluconazole x1, can continue weekly Likely LALI, CPAP at night DVT prophylaxis on Eliquis Full code reason for continued hospitalization: Hypoxia, IV diuresis Quality Stroke Does the patient have a stroke diagnosis?: No VTE Prior VTE?: No VTE Risk Level:: Medical - moderate - high VTE Device Contraindication: Treatment Not Indicated VTE Drug Contraindication: N/A - Med Ordered
[2025-04-16 12:34] LABS: Albumin Level 3.4 g/dL (3.5-5.0)
--- NOTE | 2025-04-16 15:43 | MHC.CM.PN ---
PER MED ROUNDS, PT NOT READY TO DC, STILL REQUIRING IV DIURESIS AND TREATMENT FOR HYPOXIA DCP TBD PENDING PT EVAL HOME ? [facility] VS STR TO TRANSPORT
[2025-04-16 16:12] LABS: Glucose, Whole Blood 121 mg/dL (60-115)
--- NOTE | 2025-04-16 17:17 | PC.NURSE ---
Patient alert and oriented x4, refusing bed alarm this evening, refusing to eat if alarm is to be put on. Pt. is sitting at the edge of the bed, alarm turned off, call arias within reach and pt, educated to use it and safety education provided. Patent returned demonstration.
[2025-04-16 20:09] LABS: Glucose, Whole Blood 122 mg/dL (60-115)
[2025-04-17] VITALS (7 sets, daily range): BP systolic 120–148; BP diastolic 63–76; PULSE 46–58; RESP 16–22; TEMP 35.9–36.5; O2SAT 92–96; BMI 50.5
[2025-04-17 07:17] LABS: Glucose, Whole Blood 93 mg/dL (60-115)
[2025-04-17 07:31] LABS: Anion Gap 14 (12-20); Blood Urea Nitrogen 23 mg/dL (9-16); Calcium 9.8 mg/dL (8.4-10.2); Carbon Dioxide 37 mmol/L (22-29); Chloride 100 mmol/L (96-108); Creatinine Clr Calc Pharmacy 59.2; Estimated Glomerular Filt Rate 43; Potassium 3.5 mmol/L (3.3-5.1); Sodium 147 mmol/L (135-145)
[2025-04-17] MEDS: 0.9 % Sodium Chloride Flush 3 ML SYRINGE IVFLUSH ×2 (08:40→21:45)
[2025-04-17] MEDS: Potassium Chloride Packet 20 MEQ PACKET 40 MEQ PO (08:40)
--- NOTE | 2025-04-17 09:35 | P.PNNP_ITS ---
Subjective Subjective Date of Service: 04/17/25 Interval history: Following for FOREST in setting of CHF exacerbation. patient remains overall fluid overloaded- yesterday intravascularly dry, so diuretics held. Albumin near normal at 3.4. creatinine has had slight improvement today with creatinine 1.61, down from 1.71 yesterday. patient reports he feels ok today, denies changes/concerns. States he continues to void urine regularly and has been breathing comfortably (still on nasal cannula). Physical Exam 2 Vital Signs: Vital Signs: Last Vital Signs Temp 97.7 F 04/17/25 08:00 Pulse 52 04/17/25 08:00 Resp 16 04/17/25 08:00 BP 142/75 H 04/17/25 08:00 Pulse Ox 92 04/17/25 08:00 O2 Del Method Nasal Cannula 04/17/25 08:00 O2 Flow Rate 3.5 04/17/25 08:00 FiO2 30 04/17/25 03:04 Oxygen Flow Rate 6 04/09/25 17:10 BMI result Body Mass Index 50.5 Const: General: no acute distress and awake; No alert Resp: Effort & Inspection: normal respiratory effort and able to speak in complete sentences Auscultation: crackles Cardio: Rate: regular rate Rhythm: abnormal rhythm Heart sounds: S1 normal heart sound present and S2 normal heart sound present GI: Palpation (GI): Soft to palpation and nontender : General: Yes no CVA tenderness Back/Spine/Pelvis: Back: no CVA tenderness Skin: Rashes: no rashes Extrem: General: Yes edema (+2 pitting BLE edema.) Objective Data Labs 04/12/25 10:34 04/17/25 06:49 Labs: Laboratory Results - last 24 hr 04/16/25 04/16/25 04/16/25 06:51 11:36 16:03 Hold Purple Top Sodium Potassium Chloride Carbon Dioxide Anion Gap BUN Creatinine Estim Creat Clear Calc Estimated GFR POC Glucose 110 121 H Random Glucose Calcium Albumin 3.4 L 04/16/25 04/17/25 04/17/25 20:02 06:49 07:07 Hold Purple Top SEE NOTE Sodium 147 H Potassium 3.5 Chloride 100 Carbon Dioxide 37 H Anion Gap 14 BUN 23 H Creatinine 1.61 H Estim Creat Clear Calc 59.2 Estimated GFR 43 POC Glucose 122 H 93 Random Glucose 101 Calcium 9.8 Albumin Microbiology Microbiology Results: Microbiology 04/09/25 17:33 Blood - Venous Blood Culture - Final No growth after 5 days. 04/09/25 17:33 Blood - Venous Blood Culture - Final No growth after 5 days. 04/09/25 Unknown Urine clean catch - Clean Catch Midstream Urine Culture - Final No growth. Procedures Date of Service Date of Service: 04/17/25 Assessment & Plan Assessment and plan (1) Acute kidney injury superimposed on CKD: Status: Acute (2) Acute on chronic diastolic (congestive) heart failure: Status: Acute Plan Patient with FOREST likely secondary to decreased circulating volume from heart failure. creatinine has had some improvement this a.m. after holding diuretics yesterday; patient remains overall fluid overloaded. his urine output is ~1300cc, and though intake not measured today, based on previous intake he is likely still net fluid balance negative. Recommend hold off on diuretics for another day and re-start lasix at lower dose if clinically indicated tomorrow. continue daily renal function and electrolyte studies recommend regular blood pressure checks recommend avoiding nephrotoxins continue supportive care Discussed with Dr Lorenzo Time Spent With Patient Time: Total time managing care of this patient today ____ minutes. Progress Note: Quality Stroke Does the patient have a stroke diagnosis?: No
--- NOTE | 2025-04-17 09:42 | PM.PNCARD ---
Subjective Subjective Date of Service: 04/17/25 Interval history: He states he feels okay. Just looks tired. Otherwise, no clear-cut symptoms like angina or shortness of breath. Review of Systems Review of Systems Yes all other systems are reviewed and are negative Constitutional: Reports as per HPI and Reports no additional constitutional complaints Eyes: Reports as per HPI and Denies no additional eye complaints Denies system reviewed and no additional complaints, except as documented and Reports as per HPI Cardiovascular: Reports as per HPI, Reports no additional cardiovascular complaints, Denies acrocyanosis, Denies cool extremities, Denies chest pain, Denies leg edema, Denies lightheadedness, Denies palpitations and Denies dyspnea Respiratory: Reports as per HPI, Denies no additional respiratory complaints and Denies dyspnea Gastrointestinal: Reports as per HPI and Denies no additional gastrointestinal complaints Genitourinary: Reports no additional male genitourinary complaints and Reports as per HPI Musculoskeletal: Reports no additional musculoskeletal complaints and Reports as per HPI Skin/Breast: Reports system reviewed and no additional complaints, except as docu Reports system reviewed and no additional complaints, except as documented and Reports as per HPI Psychiatric: Reports no additional psychiatric complaints and Reports as per HPI Endocrine: Reports no additional endocrine complaints, Reports as per HPI and Denies palpitations Hematologic/Lymphatic: Reports no additional hematologic/lymphatic complaints and Reports as per HPI Allergic/Immunologic: Reports no additional allergic/immunologic complaints and Reports as per HPI Physical Exam Vital Signs: Last Vital Signs Temp 97.7 F 04/17/25 08:00 Pulse 52 04/17/25 08:00 Resp 16 04/17/25 08:00 BP 142/75 H 04/17/25 08:00 Pulse Ox 92 04/17/25 08:00 O2 Del Method Nasal Cannula 04/17/25 08:00 O2 Flow Rate 3.5 04/17/25 08:00 FiO2 30 04/17/25 03:04 Oxygen Flow Rate 6 04/09/25 17:10 BMI result Body Mass Index 50.5 Const General: comfortable and no acute distress Orientation/consciousness: patient oriented x3 HEENT Other: Unremarkable Head: Yes normal to inspection Neck Neck: Yes normal visual inspection Chest Chest palpation & inspection: normal inspection of the chest Resp Auscultation: clear to auscultation bilaterally Cardio Palpation: normal PMI Heart sounds: S1 normal heart sound present, S2 normal heart sound present, no gallops, no murmurs and no rubs GI Palpation (GI): Soft to palpation Back/Spine/Pelvis Other: unremarkable Skin General skin exam: no rashes or lesions noted Neuro General: patient oriented x3 Extrem General: Yes normal to inspection Psych Mental Status: mental status grossly normal Objective Labs and Meds 04/12/25 10:34 04/17/25 06:49 Lab results: Laboratory Results - last 24 hr 04/16/25 04/16/25 04/16/25 06:51 11:36 16:03 Hold Purple Top Sodium Potassium Chloride Carbon Dioxide Anion Gap BUN Creatinine Estim Creat Clear Calc Estimated GFR POC Glucose 110 121 H Random Glucose Calcium Albumin 3.4 L 04/16/25 04/17/25 04/17/25 20:02 06:49 07:07 Hold Purple Top SEE NOTE Sodium 147 H Potassium 3.5 Chloride 100 Carbon Dioxide 37 H Anion Gap 14 BUN 23 H Creatinine 1.61 H Estim Creat Clear Calc 59.2 Estimated GFR 43 POC Glucose 122 H 93 Random Glucose 101 Calcium 9.8 Albumin Progress Note: A&P Assessment and plan (1) Acute on chronic diastolic (congestive) heart failure: Status: Acute Assessment and Plan: Clinically, does not look overtly volume overloaded. Off Bumex drip. Eventually, back to home regimen for diuretics. Current echocardiogram-LVEF of 50%. Moderately increased right ventricular size. Mild aortic stenosis. Moderate mitral annular calcification. (2) Persistent atrial fibrillation: Status: Acute Assessment and Plan: Has been present at least for 6 months. With morbid obesity, may not be a good candidate for rhythm control. He is on anticoagulation. He is not on any rate control meds but according to prior consultation, it seems telemetry had shown second-degree AV block including Wenckebach/2:1. Hence he is spontaneously rate controlled. (3) Morbid obesity: Status: Acute Assessment and Plan: He has had a sleep study in the past which was reported negative for sleep apnea but he has slept in upright position. Described to have morbid obesity/hypoventilation syndrome. That may play a role in cardiac issues. Recommend sleep Medicine appointment as an outpatient. Time Spent With Patient Time: Total time managing care of this patient today ____ minutes. Progress Note: Quality Stroke Does the patient have a stroke diagnosis?: No Procedures Date of Service Date of Service: 04/17/25
--- NOTE | 2025-04-17 09:42 | HO.PM.IMPN ---
Subjective Subjective Date of Service: 04/18/25 Interval History: Breathing is more comfortable, O2 sat is better., unfortunately sodlium level is rising and Cr is higher today Diuretics have been on hold since yesterday, so far negative 12.9 L Physical Exam Vital Signs: Vital Signs: Last Vital Signs Temp 97.7 F 04/17/25 08:00 Pulse 52 04/17/25 08:00 Resp 16 04/17/25 08:00 BP 142/75 H 04/17/25 08:00 Pulse Ox 92 04/17/25 08:00 O2 Del Method Nasal Cannula 04/17/25 08:00 O2 Flow Rate 3.5 04/17/25 08:00 FiO2 30 04/17/25 03:04 Oxygen Flow Rate 6 04/09/25 17:10 BMI result Body Mass Index 50.5 Constitutional - Awake and Alert, No apparent distress Eyes - PERRL Cardiovascular - S1S2, RRR, 2+ edema Respiratory - Normal lung expansion, Normal respiratory effort, No respiratory distress, CTA bilaterally Extremities - no calf tenderness bilaterally, no swelling Skin - Warm/Dry. fungal rash intertriginous areas Neurological - Alert & oriented x3 Psychological - Appropriate affect Objective Data Active Medications Acetaminophen (Acetaminophen 325 Mg Tablet) 975 mg PO Q6H PRN PRN Reason: Pain, Mild 1-3,fever,headache Last Admin: 04/17/25 09:01 Dose: 975 mg Documented By: JD Allopurinol (Allopurinol 300 Mg Tablet) 300 mg PO BID ON LICENSE OF [facility] Last Admin: 04/17/25 08:40 Dose: 300 mg Documented By: YASSINE Amlodipine Besylate (Amlodipine Besylate 5 Mg Tablet) 5 mg PO DAILY ON LICENSE OF [facility]; Protocol Last Admin: 04/17/25 08:40 Dose: 5 mg Documented By: YASSINE Apixaban (Apixaban 5 Mg Tablet) 5 mg PO BID ON LICENSE OF [facility] Last Admin: 04/17/25 08:40 Dose: 5 mg Documented By: YASSINE Calcium Carbonate (Calcium Carbonate 750 Mg Tab.Chew) 750 mg PO Q4H PRN PRN Reason: Heartburn Dextrose (Dextrose 50 % 25 Gm/50 Ml Syringe) 25 gm IVPUSH Q15M PRN; Protocol PRN Reason: per Hypoglycemia Standing Ord. Duloxetine HCl (Duloxetine Hcl 30 Mg Capsule.Dr) 30 mg PO BID ON LICENSE OF [facility] Last Admin: 04/17/25 08:40 Dose: 30 mg Documented By: YASSINE Glucose (Glucose Gel 15 Gm Gel..Gram.) 15 gm PO Q15M PRN; Protocol PRN Reason: per Hypoglycemia Standing Ord. Insulin Human Lispro (Insulin Lispro 100 Unit/Ml 3 Ml Vial) 0 unit SUBCUT QIDACHS ON LICENSE OF [facility]; Protocol Last Admin: 04/17/25 07:37 Dose: Not Given Documented By: JD Non-Admin Reason: No Insulin Coverage Nystatin (Nystatin Powder 15 Gm Bottle) 1 appl TOPICAL TID ON LICENSE OF [facility]; Protocol Last Admin: 04/17/25 08:45 Dose: 1 appl Documented By: YASSINE Potassium Chloride (Potassium Chloride Packet 20 Meq Packet) 40 meq PO DAILY ON LICENSE OF [facility] Last Admin: 04/17/25 08:40 Dose: 40 meq Documented By: YASSINE Sodium Chloride (0.9 % Sodium Chloride Flush 3 Ml Syringe) 3 ml IVFLUSH QSHIFT ON LICENSE OF [facility] Last Admin: 04/17/25 08:40 Dose: 3 ml Documented By: YASSINE Labs 04/12/25 10:34 04/18/25 06:19 Labs: Laboratory Results - last 24 hr 04/16/25 04/16/25 04/16/25 06:51 11:36 16:03 Hold Purple Top Anion Gap Estim Creat Clear Calc Estimated GFR POC Glucose 110 121 H Random Glucose Calcium Albumin 3.4 L 04/16/25 04/17/25 04/17/25 20:02 06:49 07:07 Hold Purple Top SEE NOTE Anion Gap 14 Estim Creat Clear Calc 59.2 Estimated GFR 43 POC Glucose 122 H 93 Random Glucose 101 Calcium 9.8 Albumin Microbiology Microbiology Results: Microbiology 04/09/25 17:33 Blood Culture - Final Blood - Venous No growth after 5 days. 04/09/25 17:33 Blood Culture - Final Blood - Venous No growth after 5 days. Assessment and Plan (1) HTN (hypertension): Status: Acute Plan 69M PMH chronic hypoxic respiratory failure on 3 L home O2, chronic systolic and diastolic CHF, chronic AFib, morbid obesity, hypertension, LALI presented with shortness of breath and worsening edema Acute on chronic hypoxic respiratory failure due to acute on chronic systolic and diastolic CHF has been on Bumex drip since 04/04, oxygen has improved, So far negative 12.3 L Creatine is up but relatively stable, Na+ 147 Bumex drip stopped 04/15 as Cr trending up Monitor renal function/lytes Monitor I&O Replace potassium as needed, presently 3.5 Counseled on fluid and salt restrictions at home Adding Aldactone 25 Bumex po today 2 mg bid and continue monitoring renal function OSH/OHS with chronic hypercapneic respiratory failure avoid oxygen toxicity, goal sats 90-93% BIPA at night, will benefit from sleep study Acute kidney injury on CKD 3, likely from cardiorenal syndrome, Cr higher is now trending tamiko diuretics on hold, hold lisinopril. Neprhology recommends checking albumin if low then diuresse if not then hold diuretics Metabolic alkalosis bicab 37 after diamox on 04/15 Hypernatremia, resolved d/t Bumex Monitor, scale bicab on diuretic increase water intake a little, sodium is 147 Diabetes Insulin sliding scale Chronic AFib on Eliquis Morbid obesity Weight loss advised Mood disorder Duloxetine Gout Allopurinol Intertriginous candidiasis Nystatin powder Give p.o. fluconazole x1, can continue weekly Likely LALI, CPAP at night DVT prophylaxis on Eliquis Full code reason for continued hospitalization: Hypoxia, IV diuresis Quality Stroke Does the patient have a stroke diagnosis?: No VTE Prior VTE?: No VTE Risk Level:: Medical - moderate - high VTE Device Contraindication: Treatment Not Indicated VTE Drug Contraindication: N/A - Med Ordered
[2025-04-17 11:45] LABS: Glucose, Whole Blood 112 mg/dL (60-115)
--- NOTE | 2025-04-17 12:21 | PC.NURSE ---
Muir cath removed at 1041. Pt tolerated well and is due to void at 1641. pt also continues to refuse bed/chair alarms. pt educated on the significance of adhering to fall prevention interventions, but continues to refuse. PT instructed to use call arias before attempting to ambulate. patient agreeable.
[2025-04-17 16:23] LABS: Glucose, Whole Blood 83 mg/dL (60-115)
[2025-04-17 20:08] LABS: Glucose, Whole Blood 135 mg/dL (60-115)
[2025-04-18] VITALS (9 sets, daily range): BP systolic 123–164; BP diastolic 64–95; PULSE 50–80; RESP 16–25; TEMP 36–37.2; O2SAT 92–98; BMI 50.8
[2025-04-18 06:51] LABS: Anion Gap 11 (12-20); Blood Urea Nitrogen 28 mg/dL (9-16); Calcium 9.5 mg/dL (8.4-10.2); Carbon Dioxide 35 mmol/L (22-29); Chloride 102 mmol/L (96-108); Creatinine Clr Calc Pharmacy 56.0; Estimated Glomerular Filt Rate 40; Potassium 3.4 mmol/L (3.3-5.1); Sodium 145 mmol/L (135-145)
[2025-04-18 07:30] LABS: Glucose, Whole Blood 89 mg/dL (60-115)
[2025-04-18] MEDS: 0.9 % Sodium Chloride Flush 3 ML SYRINGE IVFLUSH ×3 (08:49→20:20)
[2025-04-18] MEDS: Potassium Chloride Packet 20 MEQ PACKET 40 MEQ PO (08:49)
--- NOTE | 2025-04-18 10:26 | MHC.CM.PN ---
Per ROUNDS discussion, Patient is not yet medically cleared for dc (Hypoxia, monitoring Na & Creatinine); PT is recommending STR and CM will continue to follow.
[2025-04-18 10:31] LABS: MANUAL DIFF FLAG NO
[2025-04-18 10:43] LABS: Hematocrit 33.6 % (42.0-52.0); Hemoglobin 9.5 g/dl (14.0-18.0); Imm Gran Abs Auto 0.04 X10*3/uL (0.00-0.03); Imm Gran Pct Auto 0.5 % (0.0-0.4); Lymphocytes Absolute Auto 1.8 X10*3/uL (1.2-4.9); Mean Corpuscular HGB Conc 28.3 g/dl (31.0-36.0); Mean Corpuscular Hemoglobin 24.2 pg (27.0-33.0); Mean Corpuscular Volume 85.7 fL (80.0-98.0); NRBC Abs Auto 0.000 X10*3/uL (0.0-0.012); NRBC Pct Auto 0.0 /100WBC (0.0-0.2); Platelet Count 302 X10*3/uL (160-400); Red Blood Count 3.92 X10*6/uL (4.60-5.80); White Blood Count 8.8 X10*3/uL (4.8-10.8)
--- NOTE | 2025-04-18 11:14 | PM.PNNEP ---
Subjective Subjective Date of Service: 04/18/25 Interval history: Following for FOREST in setting of CHF exacerbation. patient remains overall fluid overloaded- diuretics held due to FOREST and patient intravascuarly dry. Given a day to equilibrate as albumin essentially normal. creatinine 1.71 today, slight bump since yesterday patient reports he feels ok today, denies changes/concerns. Continues to void urine regularly and has been breathing comfortably (still on nasal cannula). Physical Exam Vital Signs: Vital Signs: Last Vital Signs Temp 98.9 F 04/18/25 10:58 Pulse 56 04/18/25 10:58 Resp 20 04/18/25 10:58 BP 150/76 H 04/18/25 10:58 Pulse Ox 96 04/18/25 10:58 O2 Del Method Nasal Cannula 04/18/25 10:58 O2 Flow Rate 3 04/18/25 10:58 FiO2 30 04/17/25 03:04 Oxygen Flow Rate 6 04/09/25 17:10 BMI result Body Mass Index 50.8 Const: General: no acute distress and awake; No alert Resp: Effort & Inspection: normal respiratory effort and able to speak in complete sentences Auscultation: crackles Cardio: Rate: regular rate Rhythm: abnormal rhythm Heart sounds: S1 normal heart sound present and S2 normal heart sound present GI: Palpation (GI): Soft to palpation and nontender : General: Yes no CVA tenderness Back/Spine/Pelvis: Back: no CVA tenderness Skin: Rashes: no rashes Extrem: General: Yes edema (+2 pitting BLE edema.) Objective Data Labs 04/18/25 06:19 04/18/25 06:19 Labs: Laboratory Results - last 24 hr 04/17/25 04/17/25 04/17/25 11:35 16:18 19:59 WBC RBC Hgb Hct MCV MCH MCHC RDW Plt Count MPV Immature Gran % (Auto) Neut % (Auto) Lymph % (Auto) [place] % (Auto) Eos % (Auto) Baso % (Auto) Lymph # (Auto) [place] # (Auto) Eos # (Auto) Baso # (Auto) Abs Immat Gran (auto) Absolute Neuts (auto) Absolute Nucleated RBC Nucleated RBC % (auto) Hold Purple Top Sodium Potassium Chloride Carbon Dioxide Anion Gap BUN Creatinine Estim Creat Clear Calc Estimated GFR POC Glucose 112 83 135 H Random Glucose Calcium 07/16/25 07/16/25 06:19 07:27 WBC 8.8 RBC 3.92 L Hgb 9.5 L Hct 33.6 L MCV 85.7 MCH 24.2 L MCHC 28.3 L RDW 17.2 H Plt Count 302 MPV 10.7 Immature Gran % (Auto) 0.5 H Neut % (Auto) 63.3 Lymph % (Auto) 20.4 [place] % (Auto) 8.8 Eos % (Auto) 5.7 H Baso % (Auto) 1.3 Lymph # (Auto) 1.8 [place] # (Auto) 0.8 Eos # (Auto) 0.5 H Baso # (Auto) 0.1 Abs Immat Gran (auto) 0.04 H Absolute Neuts (auto) 5.6 Absolute Nucleated RBC 0.000 Nucleated RBC % (auto) 0.0 Hold Purple Top SEE NOTE Sodium 145 Potassium 3.4 Chloride 102 Carbon Dioxide 35 H Anion Gap 11 L BUN 28 H Creatinine 1.71 H Estim Creat Clear Calc 56.0 Estimated GFR 40 POC Glucose 89 Random Glucose 110 Calcium 9.5 Microbiology Microbiology Results: Microbiology 04/09/25 17:33 Blood - Venous Blood Culture - Final No growth after 5 days. 04/09/25 17:33 Blood - Venous Blood Culture - Final No growth after 5 days. 04/09/25 Unknown Urine clean catch - Clean Catch Midstream Urine Culture - Final No growth. Procedures Date of Service Date of Service: 04/18/25 Assessment & Plan Assessment and plan (1) Acute kidney injury superimposed on CKD: Status: Acute (2) Acute on chronic diastolic (congestive) heart failure: Status: Acute Plan Patient with FOREST likely secondary to decreased circulating volume from heart failure. creatinine with slight increase from yesterday, patient remains overall fluid overloaded. recommend resuming diuresis for fluid management as clinically indicated. Will accept some increase in creatinine in order to treat fluid overloaded/heart failure. *recommend close I&O monitoring- consider condom or other urinary catheter for monitoring if needed. continue daily renal function and electrolyte studies recommend regular blood pressure checks recommend avoiding nephrotoxins continue supportive care Discussed with Dr Lorenzo Time Spent With Patient Time: Total time managing care of this patient today ____ minutes. Progress Note: Quality Stroke Does the patient have a stroke diagnosis?: No
[2025-04-18 11:17] LABS: Glucose, Whole Blood 110 mg/dL (60-115)
--- NOTE | 2025-04-18 11:20 | HO.PM.IMPN ---
Subjective Subjective Date of Service: 04/18/25 Interval History: Breathing is more comfortable, O2 sat is better., unfortunately sodlium level is rising and Cr is higher today Diuretics have been on hold since yesterday, so far negative 12.9 L Physical Exam Vital Signs: Vital Signs: Last Vital Signs Temp 96.7 F L 04/19/25 08:00 Pulse 83 04/19/25 08:00 Resp 20 04/19/25 08:00 BP 166/86 H 04/19/25 08:00 Pulse Ox 92 04/19/25 08:00 O2 Del Method Nasal Cannula 04/19/25 08:00 O2 Flow Rate 3 04/19/25 08:00 FiO2 30 04/17/25 03:04 Oxygen Flow Rate 6 04/09/25 17:10 BMI result Body Mass Index 50.8 Constitutional - Awake and Alert, No apparent distress Eyes - PERRL Cardiovascular - S1S2, RRR, 2+ edema Respiratory - Normal lung expansion, Normal respiratory effort, No respiratory distress, CTA bilaterally Extremities - no calf tenderness bilaterally, no swelling Skin - Warm/Dry. fungal rash intertriginous areas Neurological - Alert & oriented x3 Psychological - Appropriate affect Objective Data Active Medications Acetaminophen (Acetaminophen 325 Mg Tablet) 975 mg PO Q6H PRN PRN Reason: Pain, Mild 1-3,fever,headache Last Admin: 04/18/25 08:54 Dose: 975 mg Documented By: JD Allopurinol (Allopurinol 300 Mg Tablet) 300 mg PO BID [facility] Last Admin: 04/19/25 08:42 Dose: 300 mg Documented By: ADDIE Amlodipine Besylate (Amlodipine Besylate 5 Mg Tablet) 5 mg PO DAILY [facility]; Protocol Last Admin: 04/19/25 08:43 Dose: 5 mg Documented By: ADDIE Apixaban (Apixaban 5 Mg Tablet) 5 mg PO BID [facility] Last Admin: 04/19/25 08:42 Dose: 5 mg Documented By: ADDIE Bumetanide (Bumetanide 1 Mg Tablet) 2 mg PO BID@0800,1700 [facility]; Protocol Last Admin: 04/19/25 08:42 Dose: 2 mg Documented By: ADDIE Calcium Carbonate (Calcium Carbonate 750 Mg Tab.Chew) 750 mg PO Q4H PRN PRN Reason: Heartburn Dextrose (Dextrose 50 % 25 Gm/50 Ml Syringe) 25 gm IVPUSH Q15M PRN; Protocol PRN Reason: per Hypoglycemia Standing Ord. Duloxetine HCl (Duloxetine Hcl 30 Mg Capsule.Dr) 30 mg PO BID [facility] Last Admin: 04/19/25 08:42 Dose: 30 mg Documented By: ADDIE Glucose (Glucose Gel 15 Gm Gel..Gram.) 15 gm PO Q15M PRN; Protocol PRN Reason: per Hypoglycemia Standing Ord. Insulin Human Lispro (Insulin Lispro 100 Unit/Ml 3 Ml Vial) 0 unit SUBCUT QIDACHS [facility]; Protocol Last Admin: 04/19/25 08:33 Dose: Not Given Documented By: ADDIE Non-Admin Reason: No Insulin Coverage Nystatin (Nystatin Powder 15 Gm Bottle) 1 appl TOPICAL TID [facility]; Protocol Last Admin: 04/19/25 08:45 Dose: 1 appl Documented By: ADDIE Potassium Chloride (Potassium Chloride Packet 20 Meq Packet) 40 meq PO DAILY [facility] Last Admin: 04/19/25 08:43 Dose: 40 meq Documented By: ADDIE Sodium Chloride (0.9 % Sodium Chloride Flush 3 Ml Syringe) 3 ml IVFLUSH QSHIFT [facility] Last Admin: 04/19/25 08:45 Dose: 3 ml Documented By: ADDIE Spironolactone (Spironolactone 25 Mg Tablet) 25 mg PO DAILY [facility]; Protocol Last Admin: 04/19/25 08:42 Dose: 25 mg Documented By: ADDIE Labs 04/18/25 06:19 04/19/25 06:49 Labs: Laboratory Results - last 24 hr 04/18/25 04/18/25 04/19/25 15:51 19:57 06:49 Hold Purple Top SEE NOTE Anion Gap 13 Estim Creat Clear Calc 58.7 Estimated GFR 42 POC Glucose 96 120 H Random Glucose 91 Calcium 9.5 04/19/25 07:32 Hold Purple Top Anion Gap Estim Creat Clear Calc Estimated GFR POC Glucose 96 Random Glucose Calcium Microbiology Microbiology Results: Microbiology 04/09/25 17:33 Blood Culture - Final Blood - Venous No growth after 5 days. 04/09/25 17:33 Blood Culture - Final Blood - Venous No growth after 5 days. Assessment and Plan (1) HTN (hypertension): Status: Acute Plan 69M PMH chronic hypoxic respiratory failure on 3 L home O2, chronic systolic and diastolic CHF, chronic AFib, morbid obesity, hypertension, LALI presented with shortness of breath and worsening edema Acute on chronic hypoxic respiratory failure due to acute on chronic systolic and diastolic CHF has been on Bumex drip since 04/04, oxygen has improved, So far negative 12.3 L Creatine is up but relatively stable, Na+ 147 Bumex drip stopped 04/15 as Cr trending up Monitor renal function/lytes Monitor I&O Replace potassium as needed, presently 3.5 Counseled on fluid and salt restrictions at home Adding Aldactone 25 Bumex po today 2 mg bid and continue monitoring renal function OSH/OHS with chronic hypercapneic respiratory failure avoid oxygen toxicity, goal sats 90-93% BIPA at night, will benefit from sleep study Acute kidney injury on CKD 3, likely from cardiorenal syndrome, Cr higher is now trending tamiko diuretics on hold, hold lisinopril. Neprhology recommends checking albumin if low then diuresse if not then hold diuretics Metabolic alkalosis bicab 37 after diamox on 04/15 Hypernatremia, resolved d/t Bumex Monitor, scale bicab on diuretic increase water intake a little, sodium is 147 Diabetes Insulin sliding scale Chronic AFib on Eliquis Morbid obesity Weight loss advised Mood disorder Duloxetine Gout Allopurinol Intertriginous candidiasis Nystatin powder Give p.o. fluconazole x1, can continue weekly Likely LALI, CPAP at night DVT prophylaxis on Eliquis Full code reason for continued hospitalization: Hypoxia, IV diuresis Quality Stroke Does the patient have a stroke diagnosis?: No VTE Prior VTE?: No VTE Risk Level:: Medical - moderate - high VTE Device Contraindication: Treatment Not Indicated VTE Drug Contraindication: N/A - Med Ordered
[2025-04-18 16:04] LABS: Glucose, Whole Blood 96 mg/dL (60-115)
[2025-04-18 20:32] LABS: Glucose, Whole Blood 120 mg/dL (60-115)
[2025-04-19 03:32] VITALS: BP 134/59; PULSE 51; RESP 18; TEMP 36.4; O2SAT 96
[2025-04-19 07:24] LABS: Anion Gap 13 (12-20); Blood Urea Nitrogen 28 mg/dL (9-16); Calcium 9.5 mg/dL (8.4-10.2); Carbon Dioxide 33 mmol/L (22-29); Chloride 104 mmol/L (96-108); Creatinine Clr Calc Pharmacy 58.7; Estimated Glomerular Filt Rate 42; Potassium 3.8 mmol/L (3.3-5.1); Sodium 146 mmol/L (135-145)
[2025-04-19 07:35] LABS: Glucose, Whole Blood 96 mg/dL (60-115)
[2025-04-19 08:00] VITALS: BP 166/86; PULSE 83; RESP 20; TEMP 35.9; O2SAT 92
[2025-04-19] MEDS: Potassium Chloride Packet 20 MEQ PACKET 40 MEQ PO (08:43)
[2025-04-19] MEDS: 0.9 % Sodium Chloride Flush 3 ML SYRINGE IVFLUSH (08:45)
--- NOTE | 2025-04-19 09:28 | PM.PNCARD ---
Subjective Subjective Date of Service: 04/19/25 Interval history: Seems to be doing okay. Lying down in bed comfortably. No active complaints. Review of Systems Review of Systems Yes all other systems are reviewed and are negative Constitutional: Reports as per HPI and Reports no additional constitutional complaints Eyes: Reports as per HPI and Denies no additional eye complaints Denies system reviewed and no additional complaints, except as documented and Reports as per HPI Cardiovascular: Reports as per HPI, Reports no additional cardiovascular complaints, Denies acrocyanosis, Denies cool extremities, Denies chest pain, Denies leg edema, Denies lightheadedness, Denies palpitations and Denies dyspnea Respiratory: Reports as per HPI, Denies no additional respiratory complaints and Denies dyspnea Gastrointestinal: Reports as per HPI and Denies no additional gastrointestinal complaints Genitourinary: Reports no additional male genitourinary complaints and Reports as per HPI Musculoskeletal: Reports no additional musculoskeletal complaints and Reports as per HPI Skin/Breast: Reports system reviewed and no additional complaints, except as docu Reports system reviewed and no additional complaints, except as documented and Reports as per HPI Psychiatric: Reports no additional psychiatric complaints and Reports as per HPI Endocrine: Reports no additional endocrine complaints, Reports as per HPI and Denies palpitations Hematologic/Lymphatic: Reports no additional hematologic/lymphatic complaints and Reports as per HPI Allergic/Immunologic: Reports no additional allergic/immunologic complaints and Reports as per HPI Physical Exam Vital Signs: Last Vital Signs Temp 96.7 F L 04/19/25 08:00 Pulse 83 04/19/25 08:00 Resp 20 04/19/25 08:00 BP 166/86 H 04/19/25 08:00 Pulse Ox 92 04/19/25 08:00 O2 Del Method Nasal Cannula 04/19/25 08:00 O2 Flow Rate 3 04/19/25 08:00 FiO2 30 04/17/25 03:04 Oxygen Flow Rate 6 04/09/25 17:10 BMI result Body Mass Index 50.8 Const General: comfortable and no acute distress Orientation/consciousness: patient oriented x3 HEENT Other: Unremarkable Head: Yes normal to inspection Neck Neck: Yes normal visual inspection Chest Chest palpation & inspection: normal inspection of the chest Resp Auscultation: clear to auscultation bilaterally Cardio Palpation: normal PMI Heart sounds: S1 normal heart sound present, S2 normal heart sound present, no gallops, no murmurs and no rubs GI Palpation (GI): Soft to palpation Back/Spine/Pelvis Other: unremarkable Skin General skin exam: no rashes or lesions noted Neuro General: patient oriented x3 Extrem General: Yes normal to inspection Psych Mental Status: mental status grossly normal Objective Labs and Meds 04/18/25 06:19 04/19/25 06:49 Lab results: Laboratory Results - last 24 hr 04/18/25 04/18/25 04/18/25 06:19 11:12 15:51 WBC 8.8 RBC 3.92 L Hgb 9.5 L Hct 33.6 L MCV 85.7 MCH 24.2 L MCHC 28.3 L RDW 17.2 H Plt Count 302 MPV 10.7 Immature Gran % (Auto) 0.5 H Neut % (Auto) 63.3 Lymph % (Auto) 20.4 [place] % (Auto) 8.8 Eos % (Auto) 5.7 H Baso % (Auto) 1.3 Lymph # (Auto) 1.8 [place] # (Auto) 0.8 Eos # (Auto) 0.5 H Baso # (Auto) 0.1 Abs Immat Gran (auto) 0.04 H Absolute Neuts (auto) 5.6 Absolute Nucleated RBC 0.000 Nucleated RBC % (auto) 0.0 Hold Purple Top Sodium Potassium Chloride Carbon Dioxide Anion Gap BUN Creatinine Estim Creat Clear Calc Estimated GFR POC Glucose 110 96 Random Glucose Calcium 04/18/25 04/19/25 04/19/25 19:57 06:49 07:32 WBC RBC Hgb Hct MCV MCH MCHC RDW Plt Count MPV Immature Gran % (Auto) Neut % (Auto) Lymph % (Auto) [place] % (Auto) Eos % (Auto) Baso % (Auto) Lymph # (Auto) [place] # (Auto) Eos # (Auto) Baso # (Auto) Abs Immat Gran (auto) Absolute Neuts (auto) Absolute Nucleated RBC Nucleated RBC % (auto) Hold Purple Top SEE NOTE Sodium 146 H Potassium 3.8 Chloride 104 Carbon Dioxide 33 H Anion Gap 13 BUN 28 H Creatinine 1.63 H Estim Creat Clear Calc 58.7 Estimated GFR 42 POC Glucose 120 H 96 Random Glucose 91 Calcium 9.5 Progress Note: A&P Assessment and plan (1) Acute on chronic diastolic (congestive) heart failure: Status: Acute Assessment and Plan: Per input/output charting, negative 14 L. Can decrease old diuretic to once a day. Follow-up labs next week. Further titration as an outpatient. Echocardiogram-LVEF of 50%. Moderately increased right ventricular size. Mild aortic stenosis. Moderate mitral annular calcification. (2) Persistent atrial fibrillation: Status: Acute Assessment and Plan: Has been present at least for 6 months. With morbid obesity, may not be a good candidate for rhythm control. He is on anticoagulation. He is not on any rate control meds but according to prior consultation, it seems telemetry had shown second-degree AV block including Wenckebach/2:1. Hence he is spontaneously rate controlled. (3) Morbid obesity: Status: Acute Assessment and Plan: He has had a sleep study in the past which was reported negative for sleep apnea but he has slept in upright position. Described to have morbid obesity/hypoventilation syndrome. That may play a role in cardiac issues. Likely needs sleep Medicine appointment as an outpatient. Plan Discussed with Dr. Chery. Time Spent With Patient Time: Total time managing care of this patient today ____ minutes. Progress Note: Quality Stroke Does the patient have a stroke diagnosis?: No Procedures Date of Service Date of Service: 04/19/25
--- NOTE | 2025-04-19 10:15 | P.PNNP_ITS ---
Subjective Subjective Date of Service: 04/19/25 Interval history: Following for FOREST in setting of CHF exacerbation. patient remains overall fluid overloaded- diuretics held due to FOREST and patient intravascuarly dry. Given a day to equilibrate as albumin essentially normal. creatinine stable at 1.63. Patient receiving oral diuresis for fluid overload. patient reports he feels ok today, denies changes/concerns. Continues to void urine regularly and has been breathing comfortably (still on nasal cannula). Physical Exam 2 Vital Signs: Vital Signs: Last Vital Signs Temp 96.7 F L 04/19/25 08:00 Pulse 83 04/19/25 08:00 Resp 20 04/19/25 08:00 BP 166/86 H 04/19/25 08:00 Pulse Ox 92 04/19/25 08:00 O2 Del Method Nasal Cannula 04/19/25 08:00 O2 Flow Rate 3 04/19/25 08:00 FiO2 30 04/17/25 03:04 Oxygen Flow Rate 6 04/09/25 17:10 BMI result Body Mass Index 50.8 Const: General: no acute distress and awake; No alert Resp: Effort & Inspection: normal respiratory effort and able to speak in complete sentences Auscultation: crackles Cardio: Rate: regular rate Rhythm: abnormal rhythm Heart sounds: S1 normal heart sound present and S2 normal heart sound present GI: Palpation (GI): Soft to palpation and nontender : General: Yes no CVA tenderness Back/Spine/Pelvis: Back: no CVA tenderness Skin: Rashes: no rashes Extrem: General: Yes edema (+2 pitting BLE edema.) Objective Data Labs 04/18/25 06:19 04/19/25 06:49 Labs: Laboratory Results - last 24 hr 04/18/25 04/18/25 04/18/25 06:19 11:12 15:51 WBC 8.8 RBC 3.92 L Hgb 9.5 L Hct 33.6 L MCV 85.7 MCH 24.2 L MCHC 28.3 L RDW 17.2 H Plt Count 302 MPV 10.7 Immature Gran % (Auto) 0.5 H Neut % (Auto) 63.3 Lymph % (Auto) 20.4 [place] % (Auto) 8.8 Eos % (Auto) 5.7 H Baso % (Auto) 1.3 Lymph # (Auto) 1.8 [place] # (Auto) 0.8 Eos # (Auto) 0.5 H Baso # (Auto) 0.1 Abs Immat Gran (auto) 0.04 H Absolute Neuts (auto) 5.6 Absolute Nucleated RBC 0.000 Nucleated RBC % (auto) 0.0 Hold Purple Top Sodium Potassium Chloride Carbon Dioxide Anion Gap BUN Creatinine Estim Creat Clear Calc Estimated GFR POC Glucose 110 96 Random Glucose Calcium 04/18/25 04/19/25 04/19/25 19:57 06:49 07:32 WBC RBC Hgb Hct MCV MCH MCHC RDW Plt Count MPV Immature Gran % (Auto) Neut % (Auto) Lymph % (Auto) [place] % (Auto) Eos % (Auto) Baso % (Auto) Lymph # (Auto) [place] # (Auto) Eos # (Auto) Baso # (Auto) Abs Immat Gran (auto) Absolute Neuts (auto) Absolute Nucleated RBC Nucleated RBC % (auto) Hold Purple Top SEE NOTE Sodium 146 H Potassium 3.8 Chloride 104 Carbon Dioxide 33 H Anion Gap 13 BUN 28 H Creatinine 1.63 H Estim Creat Clear Calc 58.7 Estimated GFR 42 POC Glucose 120 H 96 Random Glucose 91 Calcium 9.5 Microbiology Microbiology Results: Microbiology 04/09/25 17:33 Blood - Venous Blood Culture - Final No growth after 5 days. 04/09/25 17:33 Blood - Venous Blood Culture - Final No growth after 5 days. 04/09/25 Unknown Urine clean catch - Clean Catch Midstream Urine Culture - Final No growth. Procedures Date of Service Date of Service: 04/19/25 Assessment & Plan Assessment and plan (1) Acute kidney injury superimposed on CKD: Status: Acute (2) Acute on chronic diastolic (congestive) heart failure: Status: Acute Plan Patient with FOREST likely secondary to decreased circulating volume from heart failure. creatinine with slight increase from yesterday, patient remains overall fluid overloaded. recommend resuming diuresis for fluid management as clinically indicated. Will accept some increase in creatinine in order to treat fluid overloaded/heart failure. recommend avoiding nephrotoxins continue supportive care Patient is ok for discharge from a renal standpoint, we will arrange a follow up appointment with him in the nephrology clinic. Discussed with Dr Lorenzo. Time Spent With Patient Time: Total time managing care of this patient today ____ minutes. Progress Note: Quality Stroke Does the patient have a stroke diagnosis?: No
--- NOTE | 2025-04-19 11:10 | PM.DS ---
DS: Providers Provider Date of Service: 04/19/25 Date of admission: 04/10/25 02:31 Date of discharge: 04/19/25 Primary care physician: NOLA Alejandro Consults: 04/11/25 18:05 Consult to Wound Care Routine Reason for consultation: left upper posterior extremity skin maceration 04/16/25 08:43 Consult to Nephrology Routine Consulting Provider: [facility] Reason for consultation: Cardio renal syndrome 04/16/25 08:46 Consult to Cardiology Routine Consulting Provider: [facility] Reason for consultation: Heart failure Has provider been notified: Yes DS: Diagnosis Discharge Diagnosis (1) Acute kidney injury superimposed on CKD: Status: Acute (2) Acute on chronic diastolic (congestive) heart failure: Status: Acute DS: Summary Hospital Course Hospital Course: admission hpi Attending physician on admission: Jason Zhang Chief Complaint: Swollen legs Chuck Card is a 69 years old man with past medical history significant for systolic and diastolic congestive heart failure, atrial fibrillation, mild aortic stenosis, obesity, hypertension, hyperlipidemia and obstructive sleep apnea on home oxygen presents to the emergency department complaining of one-week history of worsening edema and pain to the lower extremities. He also complained of some shortness on breath. He denied chest pain, cough, abdominal pain, nausea, vomiting or diarrhea. He also denied any fever or chills. He did not report alcohol abuse, tobacco smoking or illicit drug use. In the ED, he was found to tachypnea. He is currently requiring OxyMask 4 L/min. Blood pressure is 132/51 and there is no tachycardia. Temperature is 97.7 degrees. Blood workup showed no leukocytosis. Hemoglobin is 9.5 and at baseline. Platelets are 292. Sodium is 146, potassium 3.2, chloride 100, CO2 32 anion gap 17. Magnesium is normal. BUN is 19 and creatinine 1.66. Glucose 124. LFTs are normal. BNP is 672 which is higher than his baseline. Troponin is 54.1. CXR showed low lung volume, suspected small bilateral pleural effusions, mild diffuse interstitial prominence in both lung finding may represent fluid overload. Abdomen and pelvis CT scan without contrast showed no acute findings. In the shows severe cardiomegaly, finding consistent with fluid overload/CHF, ascending urinary tract infection correlate with urinalysis and anterior lower wall fat stranding may represent edema related to fluid overload or panniculitis. ECG showed atrial fibrillation, 63 beats per minute. ED tx: Rescue CPAP. Bumex 1 mg IV, potassium 20 mEq p.o.. Hospital course 69M PMH chronic hypoxic respiratory failure on 3 L home O2, chronic systolic and diastolic CHF, chronic AFib, morbid obesity, hypertension, LALI presented with shortness of breath and worsening edema. He was admitted for further management of heart failure with management as below Acute on chronic hypoxic respiratory failure due to acute on chronic systolic and diastolic CHF He was treated with Bumex drip and has diuressed 14 liters. As a result Creating increase and sodium increase. and Bumex drip was stopped on 04/15, hold for 2 days and once creatine stabilized around 1.7, oral Bumex was restarted at 2mg twice day and aldactone 25 daily, Creatine is improved to 1.6 and sodium 146 now, he is making significant fluid. He was followed by both cardiology and Nephrology and they will arrange to see him in the office. He will be discharged with with oral Bumex 2 mg daily, aldacton 25 mg daily, OSH/OHS with chronic hypercapneic respiratory failure avoid oxygen toxicity, goal sats 90-93% was using BiPAP to help with heart failure Acute kidney injury on CKD 3, likely from cardiorenal syndrome, Cr higher is now trending tamiko diuretics on hold, hold lisinopril. Neprhology recommends checking albumin if low then diuresse if not then hold diuretics Metabolic alkalosis bicab 33 after diamox on 04/15 Hypernatremia, resolved d/t Bumex Monitor, scale bicab on diuretic increase water intake a little, sodium is 146 Diabetes, blood sugars are normal, doesn't need anything Chronic AFib on Eliquis Morbid obesity Weight loss advised Mood disorder Duloxetine HTN, stopping lisinopril and starting Norvasc Gout Allopurinol Intertriginous candidiasis Nystatin powder Give p.o. fluconazole x1, can continue weekly Likely LALI, CPAP at night He was offered STR rehab but declined and will go home with VNA Time Attestation Discharge Coordination Time (in mins): 45 Quality: Safe Use of Opioids Does Pt have an Active Cancer Diagnosis on the Problem List?: No Quality: Stroke Does the patient have a stroke diagnosis?: No Physical Exam Vital Signs: Vital Signs: Last Vital Signs Temp 96.7 F L 04/19/25 08:00 Pulse 83 04/19/25 08:00 Resp 20 04/19/25 08:00 BP 166/86 H 04/19/25 08:00 Pulse Ox 92 04/19/25 08:00 O2 Del Method Nasal Cannula 04/19/25 08:00 O2 Flow Rate 3 04/19/25 08:00 FiO2 30 04/17/25 03:04 Oxygen Flow Rate 6 04/09/25 17:10 BMI result Body Mass Index 50.8 DS: Data Data Completed and Pending Completed studies during hospitalization [Text1]: Procedures Assistance with Respiratory Ventilation, Less than 24 Consecutive Hours, Continuous Positive Airway Pressure (10/26/24) Introduction of Vasopressor into Peripheral Vein, Percutaneous Approach (10/26/24) Respiratory Ventilation, Less than 24 Consecutive Hours (10/26/24) Labs on day of discharge: Laboratory Results - last 24 hr 04/18/25 04/18/25 04/18/25 11:12 15:51 19:57 Hold Purple Top Sodium Potassium Chloride Carbon Dioxide Anion Gap BUN Creatinine Estim Creat Clear Calc Estimated GFR POC Glucose 110 96 120 H Random Glucose Calcium 04/19/25 04/19/25 06:49 07:32 Hold Purple Top SEE NOTE Sodium 146 H Potassium 3.8 Chloride 104 Carbon Dioxide 33 H Anion Gap 13 BUN 28 H Creatinine 1.63 H Estim Creat Clear Calc 58.7 Estimated GFR 42 POC Glucose 96 Random Glucose 91 Calcium 9.5 Discharge Plan Discharge Anticipated Discharge Date/Time: 04/19/25 11:36 Patient Disposition: Home Health Service Discharge Diagnosis: Heart failure exacerbation, FOREST due to cardiorenal syndrome Referrals: [facility] [Outside] - 1 Week Hernandez Jameson FNP-BC [Primary Care Provider, Internal Medicine] - 1 Week Discharge Medications: New spironolactone 25 mg Tablet 25 mg PO DAILY Qty: 90 0RF Protocol: Hold for SBP< HOLD for SBP < : 90 bumetanide 1 mg Tablet 2 mg PO DAILY Qty: 90 0RF Protocol: Hold for SBP< HOLD for SBP < : 90 potassium chloride [K-Tab] 20 mEq tablet extended release 20 meq PO DAILY Qty: 10 0RF amlodipine 5 mg Tablet 5 mg PO DAILY Qty: 30 0RF Protocol: Hold for SBP< HOLD for SBP < : 90 Continued (DME) oxygen continuous 2-3L/min-pt needs portable tanks-appropriate # to allow him to attend appts. See Rx Instructions .Route .MEDSUPPLY Qty: 1 0RF Rx Instructions: As directed allopurinol 300 mg tablet 300 mg PO BID 90 Days Qty: 180 1RF duloxetine 30 mg capsule,delayed release(DR/EC) 30 mg PO BID Qty: 180 1RF metformin 500 mg tablet 500 mg PO BID Qty: 180 1RF atorvastatin [Lipitor] 40 mg tablet 40 mg PO BEDTIME Qty: 30 2RF Discontinued lisinopril 40 mg tablet 40 mg PO DAILY Qty: 90 1RF furosemide 40 mg tablet 40 mg PO DAILY Qty: 90 1RF Discharge Orders: Discharge Order (Routine); Ordered 04/19/25 Ordered By: Sorin Chery Diet: Low salt diet Activity on Discharge: As tolerated Stand Alone Forms: Patient Portal Discharge page Print Language: Icelandic Care Plan Goals: recovery from heart failure, maintain fluid balance and prevent rehospitalization Health Concerns: morbid obesity heart failure kidney failure low potassium Plan of Treatment: take all medications as directed, visiting nurse will be assess you at home avoid salty food stoping taking Lisinopril and take Norvasc instead check your weight on regular basis, if your weigh goes up by 2 Ib in a day, call your doctor and if you are short of breath, call 911 Assessment: see above Discharge Date/Time: 04/19/25 15:06
[2025-04-19 11:39] VITALS: PULSE 70; O2SAT 72; O2SAT 84; O2SAT 91; O2SAT 93
--- NOTE | 2025-04-19 11:41 | W.MHC.F2F ---
Service Date Service Date: 04/19/25 Encounter Date of encounter: 04/19/25 Reasons for Services Signs and symptoms assessed: heart failure, shortness of breath Reason for long-term: medication management, medication treatment and teach disease management Reason for physical therapy: home safety and mobility, therapeutic exercises and energy conservation Homebound: Leaving the home is medically contraindicated at this time without the asist of a device and/or another person due th the listed conditions above and below. Reason homebound: shortness of breath with minimal effort and weakness related to hospital stay Homebound supporting statement: Homebound due to shortness of from heart failure with minimal effort and at rest and therefore needs the assistance of another person Certification: Based on the above findings, I certify that this patient is confined to the home and needs intermittent long-term care, physical therapy and/or speech therapy, or continues to need occupational therapy. The patient is under my care, and I have initiated the establishment of the plan of care. The patient will be followed by a physician who will periodically review the plan of care. Time Spent With Patient Time: Total time managing care of this patient today ____ minutes.
[2025-04-19 11:45] VITALS: BP 177/74; PULSE 54; RESP 20; TEMP 36.1; O2SAT 96
[2025-04-19 11:55] LABS: Glucose, Whole Blood 101 mg/dL (60-115)
--- NOTE | 2025-04-19 12:01 | MHC.CM.PN ---
Patient has been medically cleared for dc to home today, with services; Emili BORJA will have a SOC on Wednesday04/21/2025 ( is aware). Patient's will transport to home after her work. CM met with Patient at bedside and addressed IMM with him, providing Patient with the original and a copy has been placed on the chart.
[2025-04-19 14:00] VITALS: BP 128/60
== END 2025-04-19 15:06 | disposition home health service (06) | DRG 291 ==
LOC: HO.ED 04-10 02:30 → HO.EDOVER 04-10 03:13 → HO.IMC 04-11 07:47
PROVIDERS: Internal Medicine; Physician Assistant; Admitting Provider Internal Medicine; Emergency Provider Emergency Medicine; PCP Nurse Practitioner Family; Visit Provider Internal Medicine
DX: I13.0 Hypertensive heart and chronic kidney disease with heart failure and stage 1 through stage 4 chronic kidney disease, or unspecified chronic kidney disease (principal); I50.43 Acute on chronic combined systolic (congestive) and diastolic (congestive) heart failure; N17.9 Acute kidney failure, unspecified; Z68.43 Body mass index [BMI] 50.0-59.9, adult; E87.0 Hyperosmolality and hypernatremia; E66.2 Morbid (severe) obesity with alveolar hypoventilation; I48.19 Other persistent atrial fibrillation; B37.2 Candidiasis of skin and nail; I44.1 Atrioventricular block, second degree; M10.9 Gout, unspecified; E78.5 Hyperlipidemia, unspecified; Z71.3 Dietary counseling and surveillance; E11.22 Type 2 diabetes mellitus with diabetic chronic kidney disease; N18.30 Chronic kidney disease, stage 3 unspecified; Z20.822 Contact with and (suspected) exposure to COVID-19; Z79.84 Long term (current) use of oral hypoglycemic drugs; Z79.899 Other long term (current) drug therapy
CPT/HCPCS: 36415; 71045; 74176; 80048; 80053; 80061; 81001; 82040; 82803; 82947; 83605; 83735; 83880; 84484; 85025; 85027; 87040; 87086; 87637; 93005; 93306; 94660; 97110; 97116; 97162; 99285; J1939; J3480; Q9957

== ENCOUNTER → 2025-04-09 17:16 | Outpatient (BNV) | payer MEDICARE, SELFPAY | PROVIDERS: Admitting Provider Internal Medicine; Emergency Provider Emergency Medicine; PCP Nurse Practitioner Family; Visit Provider Internal Medicine Cardiovascular Disease | DX: I48.91 Unspecified atrial fibrillation (principal) | CPT/HCPCS: 93010 ==

== ENCOUNTER → 2025-04-09 18:15 | Outpatient (BNV) | payer MEDICARE, SELFPAY | PROVIDERS: Emergency Provider Emergency Medicine; PCP Nurse Practitioner Family; Visit Provider Student in an Organized Health Care Education/Training Program | DX: R39.12 Poor urinary stream (principal); I51.7 Cardiomegaly; J90 Pleural effusion, not elsewhere classified; R91.8 Other nonspecific abnormal finding of lung field; M47.815 Spondylosis without myelopathy or radiculopathy, thoracolumbar region; J98.4 Other disorders of lung | CPT/HCPCS: 71045; 74176 ==

== ENCOUNTER 2025-04-10 02:31 | Outpatient (BNV) | payer MEDICARE, SELFPAY | END 2025-04-16 12:00 | PROVIDERS: Admitting Provider Internal Medicine; Emergency Provider Emergency Medicine; PCP Nurse Practitioner Family; Visit Provider Internal Medicine | DX: I35.8 Other nonrheumatic aortic valve disorders (principal); I35.0 Nonrheumatic aortic (valve) stenosis; I34.81 Nonrheumatic mitral (valve) annulus calcification; I51.7 Cardiomegaly | CPT/HCPCS: 93306 ==

== ENCOUNTER → 2025-04-10 02:31 | Outpatient (BNV) | payer MEDICARE, SELFPAY | PROVIDERS: Admitting Provider Internal Medicine; Emergency Provider Emergency Medicine; PCP Nurse Practitioner Family; Visit Provider Nurse Practitioner Family | DX: N17.9 Acute kidney failure, unspecified (principal); N18.9 Chronic kidney disease, unspecified; I50.33 Acute on chronic diastolic (congestive) heart failure | CPT/HCPCS: 99222; 99232 ==

== ENCOUNTER → 2025-04-10 02:31 | Outpatient (BNV) | payer MEDICARE, SELFPAY | PROVIDERS: Admitting Provider Internal Medicine; Emergency Provider Emergency Medicine; PCP Nurse Practitioner Family; Visit Provider Internal Medicine | DX: I10 Essential (primary) hypertension (principal) | CPT/HCPCS: 99232; 99233 ==

== ENCOUNTER → 2025-04-10 02:31 | Outpatient (BNV) | payer MEDICARE, SELFPAY | PROVIDERS: Admitting Provider Internal Medicine; Emergency Provider Emergency Medicine; PCP Nurse Practitioner Family; Visit Provider Internal Medicine | DX: I50.33 Acute on chronic diastolic (congestive) heart failure (principal); I48.19 Other persistent atrial fibrillation | CPT/HCPCS: 99232 ==

== ENCOUNTER → 2025-05-25 13:37 | Outpatient (BNV) | payer MEDICARE, SELFPAY | PROVIDERS: Emergency Provider Student in an Organized Health Care Education/Training Program; PCP Nurse Practitioner Family; Visit Provider Radiology Diagnostic Radiology | DX: R06.02 Shortness of breath (principal); I51.7 Cardiomegaly; M12.811 Other specific arthropathies, not elsewhere classified, right shoulder; M12.812 Other specific arthropathies, not elsewhere classified, left shoulder | CPT/HCPCS: 71045 ==

== ENCOUNTER 2025-05-25 14:19 | Inpatient (IN) | payer MEDICARE, SELFPAY ==
[2025-05-25] VITALS (9 sets, daily range): BP systolic 133–180; BP diastolic 60–90; PULSE 58–74; RESP 12–24; TEMP 36.1–36.7; O2SAT 91–96; BMI 53.0; BMI 54.6
--- NOTE | 2025-05-25 | ECG_ITS ---
Test Reason : SOB Blood Pressure : */* mmHG Vent. Rate : 73 BPM Atrial Rate : * BPM P-R Int : * ms QRS Dur : 106 ms QT Int : 424 ms P-R-T Axes : * 118 9 degrees QTcB Int : 467 ms Atrial fibrillation with a competing junctional pacemaker Right axis deviation Abnormal ECG When compared with ECG of 09-Apr-2025 17:16, No significant change was found Referred By: Aracelis Garza Electronically Signed By: JET NOVOA MD
--- NOTE | ~2025-05-25 | XR_ITS ---
EXAMINATION: XR CHEST CLINICAL INFORMATION: SOB COMPARISON: April 09, 2025 TECHNIQUE: Frontal view of the chest was obtained. FINDINGS: Low lung volumes are again noted. There is pulmonary vascular crowding and vessel margins are indistinct. There are vague patchy densities in the right lung and left upper lung zone. Cardiac size is enlarged. There are large marginal osteophytes involving the right humeral head. There is also flattening of the articular contour. There is faint chondral calcinosis. There is subchondral sclerosis and flattening of the left humeral head and calcification of the superior labrum. XR/XR chest 1V IMPRESSION: Suspected pulmonary edema versus multifocal pneumonia. Cardiomegaly. CPPD arthropathy, bilateral shoulder joints. Electronically signed by: Ryan Rios MD 05/25/2025 02:56 PM EDT
--- NOTE | 2025-05-25 14:36 | ED.GENADULT ---
HPI - General Adult General Chief complaint: Dyspnea Stated complaint: DIFFICULTY BREATHING Time Seen by Provider: 05/25/25 14:32 Source: patient Mode of arrival: EMS Limitations: no limitations History of Present Illness ED Provider: Dr. Garza HPI narrative: 69-year-old male history of CHF, CKD, right heart failure, CVA, hyperlipidemia, morbid obesity, chronicity respiratory failure on 3 L nasal cannula presented to ER today for evaluation of shortness of breath. Patient stated that this has been going for past couple of days. He noticed that his leg has been increasingly swollen. He has been compliant with his diuretics however he feels more short of breath than usual. Denies any cough denies any fever. Denies any abdominal pain or chest pain. Related Data Previous Rx's ?Medication ?Instructions ?Recorded oxygen continuous 2-3L/min-pt #1 ea 12/06/23 needs portable tanks-appropriate # to allow him to attend appts. allopurinol 300 mg tablet 300 mg PO BID 90 days #180 tabs 12/07/24 duloxetine 30 mg capsule,delayed 30 mg PO BID #180 caps 01/08/25 release metformin 500 mg tablet 500 mg PO BID for diabetes 01/11/25 mellitus #180 tabs atorvastatin 40 mg tablet (Lipitor) 40 mg PO BEDTIME #30 tabs 04/15/25 amlodipine 5 mg tablet 5 mg PO DAILY #30 tabs 04/19/25 bumetanide 1 mg tablet 2 mg PO DAILY #90 tabs 04/19/25 potassium chloride 20 mEq 20 meq PO DAILY #10 tabs 04/19/25 tablet,extended release (K-Tab) spironolactone 25 mg tablet 25 mg PO DAILY #90 tabs 04/19/25 Allergies Allergy/AdvReac Type Severity Reaction Status Date / Time No Known Allergies Allergy Verified 05/25/25 14:31 Review of Systems Review of Systems: Pertinent review of systems as mentioned in HPI. All other system otherwise negative. [facility] Past Medical History [facility] Narrative: Medical history as mentioned in HPI Medical History Screening PSA (prostate specific antigen) Morbid obesity Elevated serum creatinine Right heart failure Leg pain FOREST (acute kidney injury) Leukocytosis LALI (obstructive sleep apnea) Hyperlipidemia HTN (hypertension) Diastolic heart failure Newly diagnosed diabetes Acute gout of left foot Chronic fatigue Pulmonary arterial hypertension Cerebrovascular accident (CVA) Surgical History Hx of shoulder surgery No pertinent past surgical history Family History Family History Father Blood clot in vein Mother Cancer Social History Social History Household Members: Family Housing: Apartment Do you presently have visiting nurse or other home services: No Unable to assess alcohol history related to: Unable to respond Alcohol intake: former Patient Tobacco Use Status: Never used Tobacco Years Smoked: nonsmoker Substance Use Type: Unknown Advance Directives: Yes Advance Directives on File: Yes Advance Directives Date on File: 12/03/20 Do you have a plan to hurt others: No Plan service: No Current occupational status: unemployed Physical Exam ED Exam Exam: General: Appears tachypneic Head: Normacephalic, atraumatic ENT: oral mucosa moist, neck supple, no tracheal deviation Cardiovascular: regular rate, regular rhythm, no murmurs, rubbing, gallops Respiratory: Patient has slight diminished lung sounds on the left compared to the right. Bilateral crackles on exam, does appear to be tachypneic Gastrointestinal: Soft, non distended, non tender, non guarding Extremities: +3 pitting edema lower extremities with venous stasis changes. Neurological: Awake and alert, no facial droop noted Skin: Warm and dry Psychiatric: Appropriate mood and thoughts Vital Signs: Vital Signs - 24 hr 05/25/25 14:28 05/25/25 15:24 05/25/25 16:13 Pulse Rate 63 72 Respiratory Rate 19 20 Blood Pressure 180/71 H 168/78 H Pulse Oximetry 96 Oxygen Delivery Method Nasal Cannula 05/25/25 16:25 Pulse Rate Respiratory Rate 24 H Blood Pressure Pulse Oximetry Oxygen Delivery Method BMI result Body Mass Index 53.0 Medications Administered Discontinued Medications Generic Name Dose Route Start Last Admin Trade Name Freq PRN Reason Stop Dose Admin Albuterol Sulfate 2.5 mg/ 0 mg 05/25/25 15:21 05/25/25 15:23 Albuterol/Ipratropium 3 ml INHALE 05/25/25 15:22 1 dose ONCE ONE Administration Furosemide 40 mg 05/25/25 15:07 05/25/25 16:13 Furosemide 40 Mg/4 Ml Vial IVPUSH 05/25/25 15:08 40 mg ONCE ONE Administration Protocol Nystatin 1 appl 05/25/25 17:46 05/25/25 18:25 Nystatin Powder 15 Gm Bottle TOPICAL 05/25/25 17:47 1 appl ONCE ONE Administration Protocol Medical Decision Making Medical Decision Making [facility] Narrative: 69-year-old male history of CHF and respiratory failure on 3 L nasal cannula at baseline presented hospital today for evaluation of increased shortness of breath and leg swelling. Patient has been taking his diuretic unfortunately his leg has been more swollen. He is having more symptoms of shortness of breath as well. Denies any fever or cough. Do not think this is infectious in nature. He does have diminished lung sign on the left base. I suspect this is likely secondary to from his pleural effusion. We will obtain a chest x-ray to further assess his pleural effusion. We will also obtain a screening EKG for the patient, troponin BNP. 40 mg IV Lasix will be given to the patient. We will plan to give patient a breathing treatment here to see if this will help with his shortness of breath. I did discuss the case with the respiratory therapist. We will plan to hold off the BiPAP at this time. Patient's chest x-ray does show signs of pulmonary edema on exam. Patient was able to diurese with the IV Lasix. However nursing staff noted that patient's O2 saturation did dip into the 80s. Patient was placed on BiPAP. Patient was tachypneic as well. Troponin is not elevated. Patient's BNP is elevated from baseline in the 500s. I have low suspicion for pneumonia and the patient. I think this is CHF related given signs of fluid overload and shortness of breath and hypoxia. Patient was weaned off BiPAP after diuresis. Patient is currently on 6 L nasal cannula. Patient will be admitted to the hospital for further diuresis Differential Diagnosis Differential Diagnoses: The differential diagnosis associated with the presentation includes CHF exacerbation, COPD, pleural effusion, respiratory failure, leg edema Admission/Observation Consideration of admission/observation: Escalation of care including admission/observation considered Consult Healthcare Provider Management of the patient was discussed with: Hospitalist Lab Data [facility] Lab Attestation statement: I reviewed the patient's lab results. 05/25/25 15:15 08/22/25 15:15 Labs: Lab Results 05/25/25 05/25/25 Range/Units 15:15 15:22 WBC 12.2 H (4.8-10.8) X10*3/uL RBC 3.47 L (4.60-5.80) X10*6/uL Hgb 8.5 L (14.0-18.0) g/dl Hct 30.3 L (42.0-52.0) % MCV 87.3 (80.0-98.0) fL MCH 24.5 L (27.0-33.0) pg MCHC 28.1 L (31.0-36.0) g/dl RDW 19.2 H (11.0-16.0) % Plt Count 288 (160-400) X10*3/uL MPV 8.9 L (9.4-12.4) fL Immature Gran % (Auto) 0.4 (0.0-0.4) % Neut % (Auto) 84.7 H (45-73) % Lymph % (Auto) 6.6 L (20-40) % [place] % (Auto) 5.6 (2-11) % Eos % (Auto) 2.0 (0-4) % Baso % (Auto) 0.7 (0-2) % Lymph # (Auto) 0.8 L (1.2-4.9) X10*3/uL [place] # (Auto) 0.7 (0.1-1.2) X10*3/uL Eos # (Auto) 0.2 (0.0-0.4) X10*3/uL Baso # (Auto) 0.1 (0.0-0.2) X10*3/uL Abs Immat Gran (auto) 0.05 H (0.00-0.03) X10*3/uL Absolute Neuts (auto) 10.4 H (2.0-8.3) x10*3/uL Absolute Nucleated RBC 0.000 (0.0-0.012) X10*3/uL Nucleated RBC % (auto) 0.0 (0.0-0.2) /100WBC VBG pH 7.35 (7.32-7.43) VBG pCO2 60 mmHg VBG pO2 54 mmHg VBG HCO3 34 H (22-26) mmol/L VBG O2 Saturation 76.0 % VBG Base Excess 7.1 mmol/L Sodium 146 H (135-145) mmol/L Potassium 4.7 D (3.3-5.1) mmol/L Chloride 106 (96-108) mmol/L Carbon Dioxide 30 H (22-29) mmol/L Anion Gap 15 (12-20) BUN 22 H (9-16) mg/dL Creatinine 1.35 (0.5-1.4) mg/dL Estim Creat Clear Calc 72.7 Estimated GFR 52 Random Glucose 115 (60-115) mg/dL Calcium 9.5 (8.4-10.2) mg/dL Troponin I High Sens 28.5 (<3.5-35.0) ng/L B-Natriuretic Peptide 579 H (<100) pg/mL Influenza Type A (PCR) NEGATIVE (Negative) Influenza Type B (PCR) NEGATIVE (Negative) RSV RNA Qual (PCR) NEGATIVE (Negative) SARS-CoV-2 RNA (RT-PCR) NEGATIVE (Negative) Independent Interpretation I performed an independent interpretation of an: EKG and Plain X-Ray Radiology Impression Discussion of test interpretation with radiology: I have reviewed the radiologist's reading. Chronic Conditions CHF, obesity Critical Care Time Critical Care Time Critical Care Time: Yes Total Critical Care Time: 38 Attestation: Diagnosis: Respiratory Failure Time is exclusive of separately billable procedures. Time includes: direct patient care, patient reassessment, coordination of patient care, interpretation of data (laboratory data, pulse oximetry, arterial blood gases and chest xrays), review of patient's medical records, medical consultation and documentation of patient care. Procedures excluded from critical care time: central intravenous line placement and electrocardiography. Discharge Plan Discharge Clinical Impression: Congestive heart failure, Respiratory failure Patient Disposition: Admitted As Inpatient Print Language: Romanian
--- OUTSIDE RECORDS SUMMARY | 2025-05-25 14:47 | XMS_ITS | Clinical Summary ---
Author Organization [facility]ly [facility] Address [address] [place] [id number] Care Team Providers Care Manufacturing Manager Name Role Phone Unavailable Primary Care Provider [...] Tobacco: Never Tobacco Cessation:Counseling Given: Not Answered [facility] Utilities Answer Date Recorded In the past 12 months has th e electric, gas, oil, or water company threatened to shut off services in your home? No 11/22/2023 Social Connection and Isolation Panel [NHANES] A nswer Date Recorded Frequency of Communication with Friends and Fami ly Not on file 11/22/2023 Frequency of Social Gatherings with Friends and Family Not on file 11/22/2023 Attends [employer] Not on file 11/22 Active Member [...] place to sleep or slept in a half-way (including now)? No 11/22/2023 Sex and Gender [...] 74 - 106 mg/dL 11/25/2023 6:40 AM [facility] Comment:Fasting: <100 mg/dL, Non-Fasting: <200 mg/dL (ADA 2005) Blood Urea Nitrogen (BUN) 24(H) 9 - 23 mg/dL 11/25/2023 6:40 AM [facility] Creatinine 1.2 0.7 - 1.3 mg/dL 11/25/2023 6:40 AM [facility] eGFR 65 >59 11/25/2023 6:40 AM [facility] Comment:CKD-EPI (2020) in mL /min/1.73 sq meters. Sodium 141 136 - 145 mmol/L 11/25/2023 6:40 AM [facility] Potassium 3.2(L) 3.4 - 4.5 mmol/L 11/25/2023 6:40 AM EST [facility] Chloride 104 98 - 107 mmol/L 11/25/2023 6:40 AM EST [facility] CO2 29 20 - 31 mmol/L 11/25/2023 6:40 AM EST [facility] Anion Gap 8 5 - 15 11/25/2023 6:40 AM EST [facility] Calcium 9.2 8.7 - 10.5 mg/dL 11/25/2023 6:40 AM EST [facility] BUN/Creatinine Ratio 20 10.0 - 25.0 Ratio 11/25/2023 6:40 AM EST [facility] Blood specimen (specimen) (Plasma/Serum) 11/25/2023 4:56 AM EST 11/25/2023 5:52 AM EST Cindy Garcia MD LAB BLOOD ORDERABLES Final Result [facility] [address] [place] [address], * (ABNORMAL) Hemoglobin A1c with Estimated Average Glucose (11/20/2023 6:36 AM EST) Hemoglobin A1C 6.1(H) <5.7 % 11/20/2023 1:20 PM [facility] Comment: A1c% Interpretation 5.7 - 6.0 Increase risk of diabetes 6.1 - 6.4 Higher risk of diabetes > or = 6.5 Consistent with diabetes Diabetes Care, 33(Supp 1):S1-S61, 2010 Estimated Average Glucose 128 mg/dL 11/20/2023 1:20 PM [facility] Blood specimen (specimen) Blood specimen / Unknown 11/20/2023 6:36 AM EST 11/20/2023 7:09 AM EST Arnaldo Mars PA-C LAB BLOOD ORDERABLES Final R esult Performing Organization Address City/[facility]/ZIP Co de Phone Number [place] [phone], [address] [address] * (ABNORMAL) Lipid Panel (Early AM) (11/20/2023 6:36 AM EST) Cholesterol, Total 117 <200 mg/dL 2023 7:44 AM EST [facility] Triglycerides 208(H) <150 mg/dL 11/20/2023 7:44 AM EST [facility] Cholesterol, HDL 32(L) >60 mg/dL 11/20/19 7:44 AM EST [facility] Estimated LDL 43 <130 mg/dL 11/20/2023 7:44 AM EST [facility] Comment: NCEP Guidelines: < 100 mg/dL Optimal 100 - 129 mg/dL Near Optimal/Above Optimal 130 - 159 mg/dL Borderline High 160 - 189 mg/dL High >/= 190 mg/dL Very High Cholesterol/HDL Ratio 3.7 0.0 - 5.0 Ratio 11/20/2023 7:44 AM EST [facility] Comment: Relative Risk Ratio - Male Ratio - Female 0.5 3.4 3.3 1.0 5.0 4.4 2.0 9.6 7.1 3.0 23.4 11.0 Blood specimen (specimen) (Plasma/Serum) 11/20/2023 6:36 AM EST 11/20/2023 7:09 AM EST Arnaldo Mars PA-C LAB BLOOD ORDERABLES Final R esult [facility] [address] [place] [address], from Last 3 Months or Most Recently Relevant to Health Maintenance [place] [id number] [facility] MEDICARE Advance Directives * Full Code (Latest Code Status on File) Date Activated Date Inactivated Comments 11/19/2023 2:41 PM
--- OUTSIDE RECORDS SUMMARY | 2025-05-25 14:47 | XMS_ITS ---
Author Organization [facility] [place] Care Team Providers Care No Bake Molder Name Role Phone Fermin Pepper Unavailable Unavailable Care Team Name Role Address Phone Organization Dates Fermin Pepper [address] [facility] [address], [address], [facility] (Office): : : Jeninfer [facility] [place] 10/12/2023 - 10/12/2023 Problems Problem # Description Date of onset Resolved Date Code CodeSystem Concern Status 1 ACUTE KIDNEY FAILURE, UNSPECIFIED [address] active 2 ACUTE RESPIRATORY FAILURE WITH HYPOXIA [address] active 3 INFLUENZA DUE TO IDENTIFIED NOVEL INFLUENZA A VIRUS WITH OTHER RESPIRATORY MANIFESTATIONS [address] active 4 PNEUMONIA, UNSPECIFIED ORGANISM [address] active Reason for Referral No Reasons for Referral Entered Social History Social History Observation Description Start Date End Date Code Code System Current Smoking Status Tobacco smoking consumption unknown 547042986 SNOMED CT Sex Assigned At Male 1955 [id number] [facility] Gender Identity
--- OUTSIDE RECORDS SUMMARY | 2025-05-25 14:47 | XMS_ITS | Encounter Summary ---
Author Organization [facility] Address [address] [place] [phone] Care Team Providers Care Coagulating Bath Operator Name Role Phone Sam Rubin MD Primary Care Provider [phone] Encounter Details Date Type Department Care Team (Late st Contact Info) Description 11/08/2024 Lab Requisition [facility] - Main Lab [address] [facility] [place] [address] Sam Rubin MD [address] [place] [address] [address] [place], [phone] Unspecified combined systolic (congestive) and diastolic (congestive) heart failure (CMS/HCC V24, CMS/HCC V28); Type 2 diabetes mellitus without complications (CMS/HCC V24, CMS/HCC V28); Primary pulmonary hypertension (CMS/HCC V24, CMS/HCC V28); Chronic kidney disease, unspecified Social History Tobacco Use Types Packs/Day Years Used Date Smoking Tobacco: Never Assessed Sex and Gender Information Value Date Recorded Sex Assigned at Not on file Legal Sex Male 6:49 AM EST Gender Identity Not on file Sexual Orientation Not on file documented as of this encounter Plan of Treatment Not on file documented as of this encounter Procedures Procedure Name Priority Date/Time Associated Diagnosis Comments COMPLETE BLOOD COUNT Routine 11/08/2024 5:42 AM EST Unspecified combined systolic (congestive) and diastolic (congestive) heart failure (CMS/HCC) Type 2 diabetes mellitus without complications (CMS/HCC) Primary pulmonary hypertension (CMS/HCC) Chronic kidney disease, unspecified HEMOGLOBIN A1C Routine 11/08/2024 5:42 AM EST Unspecified combined systolic (congestive) and diastolic (congestive) heart failure (CMS/HCC) Type 2 diabetes mellitus without complications (CMS/HCC) Primary pulmonary hypertension (CMS/HCC) Chronic kidney disease, unspecified COMPREHENSIVE METABOLIC PANEL Routine 11/08/2024 5:42 AM EST Unspecified combined systolic (congestive) and diastolic (congestive) heart failure (CMS/HCC) Type 2 diabetes mellitus without complications (CMS/HCC) Primary pulmonary hypertension (CMS/HCC) Chronic kidney disease, unspecified documented in this encounter Results * Hemoglobin A1c (11/08/2024 5:42 AM EST) Pathologist [facility] Hemoglobin A1C 5.8 <6.5 % LAB CHEMISTRY METHOD 11/08/2024 7:03 PM EST [facility] Mean Bld Glu Estim. 120 mg/dL LAB CHEMISTRY METHOD 11/08/2024 7:03 PM [facility] Blood Venous blood specimen / Unknown Venipuncture / Unknown 11/08/2024 5:42 AM EST 11/08/2024 9:35 AM EST us Sam Rubin MD LAB BLOOD ORDERABLES Final Resul t [facility] [address] [place] [address], * (ABNORMAL) Comprehensive metabolic panel (11/08/2024 5:42 AM EST) Pathologist [facility] Sodium 139 133 - 145 mmol/L LAB CHEMISTRY METHOD 11/08/2024 12:10 PM [facility] Potassium 3.8 3.5 - 5.5 mmol/L LAB CHEMISTRY METHOD 11/08/2024 12:10 PM [facility] Chloride 102 96 - 110 mmol/L LAB CHEMISTRY METHOD 11/08/2024 12:10 PM [facility] CO2 30 21 - 32 mmol/L LAB CHEMISTRY METHOD 11/08/2024 12:10 PM [facility] Anion Gap 7 3 - 11 LAB CHEMISTRY METHOD 11/08/2024 12:10 PM [facility] Glucose 70 70 - 100 mg/dL LAB CHEMISTRY METHOD 11/08/2024 12:10 PM [facility] BUN 31(H) 5 - 25 mg/dL LAB CHEMISTRY METHOD 11/08/2024 12:10 PM [facility] Creatinine 1.16 0.70 - 1.30 mg/dL LAB CHEMISTRY METHOD 11/08/2024 12:10 PM [facility] eGFR 68 >=60 mL/min/1. 73m2 LAB CHEMISTRY METHOD 11/08/2024 12:10 PM [facility] Comment:Calculation based on the Chronic Kidney Disease Epidemiology Collaboration (CKD-EPI) equation refit without adjustment for race. BUN/Creatinine Ratio 26.7 LAB CHEMISTRY METHOD 11/08/2024 12:10 PM [facility] Calcium 9.5 8.5 - 10.5 mg/dL LAB CHEMISTRY METHOD 11/08/2024 12:10 PM [facility] AST (SGOT) 22 10 - 42 unit/L LAB CHEMISTRY METHOD 11/08/2024 12:10 PM [facility] ALT (SGPT) 36 10 - 60 unit/L LAB CHEMISTRY METHOD 11/08/2024 12:10 PM [facility] Alkaline Phosphatase 76 42 - 121 unit/L LAB CHEMISTRY METHOD 11/08/2024 12:10 PM [facility] Total Protein 7.4 6.0 - 8.0 g/dL LAB CHEMISTRY METHOD 11/08/2024 12:10 PM [facility] Albumin 3.1(L) 3.2 - 5.0 g/dL LAB CHEMISTRY METHOD 11/08/2024 12:10 PM [facility] Total Bilirubin 0.5 0.0 - 1.4 mg/dL LAB CHEMISTRY METHOD 11/08/2024 12:10 PM [facility] Blood Venous blood specimen / Unknown Venipuncture / Unknown 11/08/2024 5:42 AM EST 11/08/2024 9:35 AM EST us Sam Rubin MD LAB BLOOD ORDERABLES Final Resul t [facility] [address] [place] [address], [place] [phone] * (ABNORMAL) Complete blood count (11/08/2024 5:42 AM EST) WBC 9.0 4.8 - 10.8 K/mcL LAB HEMETOLOGY METHOD 11/08/2024 11:06 AM [facility] RBC 3.70(L) 4.50 - 5.50 M/mcL LAB HEMETOLOGY METHOD 11/08/2024 11:06 AM [facility] Hemoglobin 9.3(L) 13.5 - 17.5 g/dL LAB HEMETOLOGY METHOD 11/08/2024 11:06 AM [facility] Hematocrit 32.5(L) 42.0 - 54.0 % LAB HEMETOLOGY METHOD 11/08/2024 11:06 AM [facility] MCV 86.9 79.0 - 98.0 FL LAB HEMETOLOGY METHOD 11/08/2024 11:06 AM [facility] MCH 24.9(L) 27.0 - 32.0 pcg LAB HEMETOLOGY METHOD 11/08/2024 11:06 AM [facility] MCHC 28.6(L) 32.0 - 37.0 g/dL LAB HEMETOLOGY METHOD 11/08/2024 11:06 AM [facility] RDW 17.2(H) 11.0 - 15.0 % LAB HEMETOLOGY METHOD 11/08/2024 11:06 AM [facility] Platelets 404(H) 130 - 400 K/mcL LAB HEMETOLOGY METHOD 11/08/2024 11:06 AM EST [facility] MPV 10.5 7.0 - 11.0 FL LAB HEMETOLOGY METHOD 11/08/2024 11:06 AM EST [facility] NRBC 0.0 <1.0 % LAB HEMETOLOGY METHOD 11/08/2024 11:06 AM EST [facility] NRBC Absolute 0.00 <0.10 K/mcL LAB HEMETOLOGY METHOD 11/08/2024 11:06 AM EST [facility] Blood Venous blood specimen / Unknown Venipuncture / Unknown 11/08/2024 5:42 AM EST 11/08/2024 9:35 AM EST us Sam Rubin MD LAB BLOOD ORDERABLES Final Resul t [facility] [address] [place] [address], documented in this encounter Visit Diagnoses Diagnosis Unspecified combined systolic (congestive) and diastolic (congestive) heart failure (CMS/HCC V24, CMS/HCC V28) Type 2 diabetes mellitus without complications (CMS/HCC V24, CMS/HCC V28) Primary pulmonary hypertension (CMS/HCC V24, CMS/HCC V28) Primary pulmonary hypertension Chronic kidney disease, unspecified documented in this encounter Care Teams Coagulating Bath Operator Relationship Specialty Start Date End Date Sam Rubin MD [address] [place] [address], [phone] PCP - General Family Medicine 11/08/24 documented as of this encounter
--- OUTSIDE RECORDS SUMMARY | 2025-05-25 14:47 | XMS_ITS | Encounter Summary ---
Author Organization [facility], Address [address] [facility] [address] [place] [address] Phone Care Team Providers Care Entertainment Director Name Role Phone Hernandez Jameson NP Primary Care Provider [phone] Encounter Details Date Type Department Care Team (Late st Contact Info) Description 11/30/2022 Documentation Only [facility], [address] [place] [address] Jimbo Cruz MD [address] [place] [address] Social History Tobacco Use Types [...] on filedocumented in this encounter Care Teams Entertainment Director Relationship Specialty Start Date End Date Hernandez Jameson NP 1962 [address] [place] [phone] PCP - General Nurse Practitioner 07/10/20 documented as of this encounter
[2025-05-25 15:21] LABS: MANUAL DIFF FLAG NO
[2025-05-25] MEDS: Albuterol Sulfate 2.5 MG, Albuterol/Iprat 2.5/0.5MG 3 ML 3 ML INHALE (15:23)
[2025-05-25 15:24] LABS: Hematocrit 30.3 % (42.0-52.0); Hemoglobin 8.5 g/dl (14.0-18.0); Imm Gran Abs Auto 0.05 X10*3/uL (0.00-0.03); Imm Gran Pct Auto 0.4 % (0.0-0.4); Lymphocytes Absolute Auto 0.8 X10*3/uL (1.2-4.9); Mean Corpuscular HGB Conc 28.1 g/dl (31.0-36.0); Mean Corpuscular Hemoglobin 24.5 pg (27.0-33.0); Mean Corpuscular Volume 87.3 fL (80.0-98.0); NRBC Abs Auto 0.000 X10*3/uL (0.0-0.012); NRBC Pct Auto 0.0 /100WBC (0.0-0.2); Platelet Count 288 X10*3/uL (160-400); Red Blood Count 3.47 X10*6/uL (4.60-5.80); White Blood Count 12.2 X10*3/uL (4.8-10.8)
[2025-05-25 15:25] LABS: Venous Blood Gas Refer to POC result
[2025-05-25 15:25] LABS: VBG HCO3 34 mmol/L (22-26); VBG O2 % Saturation 76.0 %
[2025-05-25 15:35] LABS: Anion Gap 15 (12-20); Blood Urea Nitrogen 22 mg/dL (9-16); Calcium 9.5 mg/dL (8.4-10.2); Carbon Dioxide 30 mmol/L (22-29); Chloride 106 mmol/L (96-108); Creatinine Clr Calc Pharmacy 72.7; Estimated Glomerular Filt Rate 52; Potassium 4.7 mmol/L (3.3-5.1); Sodium 146 mmol/L (135-145)
[2025-05-25 15:49] LABS: Troponin-I High Sensitivity 28.5 ng/L (<3.5-35.0)
[2025-05-25 15:59] LABS: Resp Syncy Virus RNA Qual PCR NEGATIVE (Negative); SARS COV2 PCR INHOUSE NEGATIVE (Negative)
[2025-05-25 16:10] LABS: B Type Natriuretic Peptide 579 pg/mL (<100)
[2025-05-25] MEDS: Furosemide 40 MG/4 ML VIAL IVPUSH ×2 (16:13→19:58)
--- NOTE | 2025-05-25 18:28 | PC.NURSE ---
Patient reports to Ed c/o worsening SOB. Reports increased edema in legs denies c/p and cough CXR= pulmonary edema Patient incontinent, upon providing care it was noticed that patient had fungal rash to entire groin area. Provider aware nystatin applied Male purewick applied and attached to suction Patient on O2 6L NC 95%
--- NOTE | 2025-05-25 19:30 | P.HPHOSP_ITS ---
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 Patient states he has been having dyspnea which is worse with lying down that has been ongoing for the last 2 days. He has been compliant with home medications. Patient thinks he has also gained weight since the last time he was discharged. He noticed that his bilateral lower extremities have been more swollen. No fever, chills or cough. Denies chest pain, palpitations, nausea, vomiting, abdominal pain, changes in urinary or bowel habits. In the emergency department, BNP found to be elevated and imaging with pulmonary edema. Patient was initiated on IV diuresis and initially required BiPAP Review of Systems 2 Constitutional: Constitutional: Reports fatigue and Reports malaise Cardiovascular: Cardiovascular: Reports leg edema, Reports dyspnea and Reports orthopnea Respiratory: Respiratory: Reports dyspnea Gastrointestinal: Gastrointestinal: Reports no additional gastrointestinal complaints Genitourinary: Genitourinary: Reports no additional male genitourinary complaints Endocrine: Endocrine: Reports fatigue [facility] Medical History Persistent atrial fibrillation Screening PSA (prostate specific antigen) Morbid obesity Elevated serum creatinine Right heart failure Leg pain [facility] (acute kidney injury) Leukocytosis LALI (obstructive sleep apnea) Hyperlipidemia HTN (hypertension) Diastolic heart failure Newly diagnosed diabetes Acute gout of left foot Chronic fatigue Pulmonary arterial hypertension Cerebrovascular accident (CVA) Family History Father Blood clot in vein Mother Cancer Surgical History Hx of shoulder surgery No pertinent past surgical history Social History Household Members: Family Housing: Apartment Do you presently have visiting nurse or other home services: No Unable to assess alcohol history related to: Unable to respond Alcohol intake: former Patient Tobacco Use Status: Never used Tobacco Years Smoked: nonsmoker Substance Use Type: Unknown Advance Directives: Yes Advance Directives on File: Yes Advance Directives Date on File: 12/03/20 Do you have a plan to hurt others: No Plan service: No Current occupational status: unemployed Meds Allergies Allergy/AdvReac Type Severity Reaction Status Date / Time No Known Allergies Allergy Verified 05/25/25 14:31 Physical Exam 2 Vital Signs and Narrative: Vital Signs: Last Vital Signs Pulse 72 05/25/25 15:24 Resp 24 H 05/25/25 16:25 BP 168/78 H 05/25/25 16:13 Pulse Ox 96 05/25/25 14:28 O2 Del Method Nasal Cannula 05/25/25 14:28 Oxygen Flow Rate 3 05/25/25 14:28 BMI result Body Mass Index 53.0 Const: Other: Middle-aged male lying in bed in mild distress on supplemental oxygen Neck supple Irregularly irregular, S1-S2 heard Decreased sounds at bases with bilateral crackles Abdomen soft nontender, no guarding, no rigidity Patient is awake, alert and oriented x3 ; no focal motor deficit Psych: Normal mood Bilateral pedal edema with venous stasis changes Results Labs 05/25/25 15:15 05/25/25 15:15 Labs: Laboratory Results - last 24 hr 05/25/25 05/25/25 15:15 15:22 MCV 87.3 MCH 24.5 L MCHC 28.1 L RDW 19.2 H Plt Count 288 MPV 8.9 L Immature Gran % (Auto) 0.4 Neut % (Auto) 84.7 H Lymph % (Auto) 6.6 L [place] % (Auto) 5.6 Eos % (Auto) 2.0 Baso % (Auto) 0.7 Lymph # (Auto) 0.8 L [place] # (Auto) 0.7 Eos # (Auto) 0.2 Baso # (Auto) 0.1 Abs Immat Gran (auto) 0.05 H Absolute Neuts (auto) 10.4 H Absolute Nucleated RBC 0.000 Nucleated RBC % (auto) 0.0 VBG pH 7.35 VBG pCO2 60 VBG pO2 54 VBG HCO3 34 H VBG O2 Saturation 76.0 VBG Base Excess 7.1 Anion Gap 15 Estim Creat Clear Calc 72.7 Estimated GFR 52 Random Glucose 115 Calcium 9.5 B-Natriuretic Peptide 579 H Influenza Type A (PCR) NEGATIVE Influenza Type B (PCR) NEGATIVE RSV RNA Qual (PCR) NEGATIVE SARS-CoV-2 RNA (RT-PCR) NEGATIVE Imaging Radiologist's Impressions: Impressions Chest X-Ray 05/25/25 13:37 IMPRESSION: Suspected pulmonary edema versus multifocal pneumonia. Cardiomegaly. CPPD arthropathy, bilateral shoulder joints. Electronically signed by: Ryan Rios MD 05/25/2025 02:56 PM EDT RP Assessment and Plan (1) Hypoxia: Status: Acute (2) Congestive heart failure: Qualifiers: Heart failure chronicity: acute on chronic Heart failure type: u nspecified Qualified Code(s): I50.9 - Heart failure, unspecified Status: Acute Plan This is a 69-year-old male with pertinent history of chronic hypoxemic respiratory failure on 3 L supplemental oxygen, combined systolic and diastolic congestive heart failure, atrial fibrillation on anticoagulation, hypertension, mixed hyperlipidemia, LALI on home supplemental oxygen, gout, mood disorder, zsp-usfwkik-jrlubxduy type 2 diabetes mellitus who presents to the emergency department for evaluation of dyspnea. #. Acute on chronic hypoxemic respiratory failure due to decompensated congestive heart failure with combined systolic and diastolic dysfunction: Will admit patient with IV diuresis. Also on spironolactone Strict I's and O's. Low-salt diet. Continue supplemental oxygen and wean as tolerated #. Type 2 epf-alqqdms-htbpkhgrv diabetes mellitus: Initiating Accu-Cheks with sliding scale insulin #. Hypertension: Continue home antihypertensives #. Permanent Atrial fibrillation: On Eliquis #. Morbid obesity: Weight loss recommended #. Mood disorder: On duloxetine #. LALI: CPAP at bedtime Med rec pending DVT prophylaxis: Eliquis Full code Admit as inpatient and will require two night minimum hospital stay for supplemental oxygen, IV diuresis (as above), which is not possible in a lesser acute setting. Quality Stroke Does the patient have a stroke diagnosis?: No VTE Prior VTE?: No VTE Risk Level:: Medical - moderate - high VTE Device Contraindication: Treatment Not Indicated VTE Drug Contraindication: N/A - Med Ordered
[2025-05-25 21:00] LABS: Glucose, Whole Blood 97 mg/dL (60-115)
--- NOTE | 2025-05-25 21:38 | PHA.MEDREC ---
Addendum entered by Rony Mena [facility] 05/25/25 21:48: Reviewed by [facility], will let provider know that there are recent claims for Spironolactone, but Spouse does not think pt is is this still on this medication. Original Note: Pharmacy Consult ? Medication Reconciliation Pharmacy has completed the medication reconciliation. Pt poor historian and told us to call his spouse (Grealdo [phone]). Spoke with pt spouse over the phone and she was able to confirm the pt medications; Pt still takes and has Potassium 20meq tabs once daily and has some left at home. Spouse does not think pt is taking Spironolactone and was unable to find an Rx bottle at home. Pt not finding much fluid retention relief since starting Bumetanide.
[2025-05-25] MEDS: 0.9 % Sodium Chloride Flush 3 ML SYRINGE IVFLUSH (23:55)
--- NOTE | 2025-05-26 01:11 | HO.SKINPHOTO ---
Location: Category:left gluteal fold Location:right abdomen groin area Category: Stage: Length: Width: Depth: cm Location:right abd/groin Category: Stage: Length: Width: Depth: cm Location:left groin Category: Stage: Length: Width: Depth: cm Location: Category: Stage: Length: Width: Depth: cm Location: Category: Stage: Length: Width: Depth: cm
--- NOTE | 2025-05-26 04:44 | PC.NURSE ---
Patient is new admission at 2145 b=via stretcher from ed unit with SOB and leg edema, see ED reports for details, but noted upon admission with skin issues, see photos. fungal redness to bilateral groin lexii, abd folds also reddened. Skin care provided, Nystatin powder applied, cleansed well. small red abrasion line at left leg crease, and a small open area to left gluteal fold. Repositioned, barrier cream, air loss mattress, and pillows utilized. scab present at right chest and some scattered bruises to arms. Oxygen in use at 6 liters n/c and then with a cpap during sleep applied by resp therapist. HFR protocol initiated, pt agreeable and educated, bed alarm activated, no s/sx resp distress, monitored with call arias within reach.
[2025-05-26 06:14] LABS: MANUAL DIFF FLAG NO
[2025-05-26 06:18] LABS: Hematocrit 27.4 % (42.0-52.0); Hemoglobin 7.9 g/dl (14.0-18.0); Imm Gran Abs Auto 0.02 X10*3/uL (0.00-0.03); Imm Gran Pct Auto 0.2 % (0.0-0.4); Lymphocytes Absolute Auto 1.4 X10*3/uL (1.2-4.9); Mean Corpuscular HGB Conc 28.8 g/dl (31.0-36.0); Mean Corpuscular Hemoglobin 24.7 pg (27.0-33.0); Mean Corpuscular Volume 85.6 fL (80.0-98.0); NRBC Abs Auto 0.000 X10*3/uL (0.0-0.012); NRBC Pct Auto 0.0 /100WBC (0.0-0.2); Platelet Count 280 X10*3/uL (160-400); Red Blood Count 3.20 X10*6/uL (4.60-5.80); White Blood Count 9.9 X10*3/uL (4.8-10.8)
[2025-05-26 06:35] LABS: Anion Gap 12 (12-20); Blood Urea Nitrogen 22 mg/dL (9-16); Calcium 9.1 mg/dL (8.4-10.2); Carbon Dioxide 33 mmol/L (22-29); Chloride 105 mmol/L (96-108); Creatinine Clr Calc Pharmacy 72.4; Estimated Glomerular Filt Rate 51; Potassium 4.1 mmol/L (3.3-5.1); Sodium 146 mmol/L (135-145)
[2025-05-26 07:13] LABS: Glucose, Whole Blood 92 mg/dL (60-115)
[2025-05-26 07:38] VITALS: BP 141/65; PULSE 60; RESP 18; TEMP 36.3; O2SAT 95
[2025-05-26 08:12] VITALS: O2SAT 94
[2025-05-26] MEDS: Bumetanide 1 MG/4 ML VIAL 2 MG IVPUSH ×2 (08:20→16:46)
[2025-05-26] MEDS: 0.9 % Sodium Chloride Flush 3 ML SYRINGE IVFLUSH ×3 (08:21→20:13)
[2025-05-26 11:17] LABS: Glucose, Whole Blood 96 mg/dL (60-115)
[2025-05-26 11:21] VITALS: BP 175/84; PULSE 60; RESP 20; O2SAT 100
[2025-05-26] MEDS: Potassium Chloride ER 20 MEQ TAB.ER.PRT PO (11:22)
--- NOTE | 2025-05-26 14:39 | HO.PM.IMPN ---
Subjective Subjective Date of Service: 05/26/25 Interval History: Good response to Bumex. . . (-2 L). No acute issues overnight Review of Systems Denies chest pain Admits shortness of breath which has improved since admission Denies nausea vomiting diarrhea Denies fever chills Physical Exam Vital Signs: Vital Signs: Last Vital Signs Temp 97.3 F 05/26/25 07:38 Pulse 60 05/26/25 11:21 Resp 20 05/26/25 11:21 BP 175/84 H 05/26/25 11:21 Pulse Ox 100 05/26/25 11:21 O2 Del Method Nasal Cannula 05/26/25 11:21 O2 Flow Rate 6 05/26/25 11:21 Oxygen Flow Rate 3 05/25/25 14:28 BMI result Body Mass Index 54.6 Const: Other: Awake alert no acute distress Resp: Other: Essentially clear with faint crackles bilateral bases Cardio: Other: No S4; positive S1-S2; no S3 murmurs rubs or gallops GI: Other: Soft nontender nondistended normoactive bowel sounds Extrem: Other: Positive edema Objective Data Active Medications Acetaminophen (Acetaminophen 325 Mg Tablet) 650 mg PO Q6H PRN PRN Reason: Pain, Mild 1-3,fever,headache Last Admin: 05/26/25 11:26 Dose: 650 mg Documented By: ZARIA Amlodipine Besylate (Amlodipine Besylate 5 Mg Tablet) 5 mg PO DAILY [facility]; Protocol Last Admin: 05/26/25 11:22 Dose: 5 mg Documented By: ZARIA Apixaban (Apixaban 5 Mg Tablet) 5 mg PO BID [facility] Last Admin: 05/26/25 08:20 Dose: 5 mg Documented By: ZARIA Atorvastatin Calcium (Atorvastatin Calcium 40 Mg Tablet) 40 mg PO BEDTIME [facility] Bumetanide (Bumetanide 1 Mg/4 Ml Vial) 2 mg IVPUSH BID@0900,1700 [facility]; Protocol Last Admin: 05/26/25 08:20 Dose: 2 mg Documented By: ZARIA Calcium Carbonate (Calcium Carbonate 750 Mg Tab.Chew) 750 mg PO Q4H PRN PRN Reason: Heartburn Dextrose (Dextrose 50 % 25 Gm/50 Ml Syringe) 25 gm IVPUSH Q15M PRN; Protocol PRN Reason: per Hypoglycemia Standing Ord. Duloxetine HCl (Duloxetine Hcl 30 Mg Capsule.Dr) 30 mg PO BID [facility] Last Admin: 05/26/25 11:22 Dose: 30 mg Documented By: ZARIA Glucose (Glucose Gel 15 Gm Gel..Gram.) 15 gm PO Q15M PRN; Protocol PRN Reason: per Hypoglycemia Standing Ord. Insulin Human Lispro (Insulin Lispro 100 Unit/Ml 3 Ml Vial) 0 unit SUBCUT QIDACHS [facility]; Protocol Last Admin: 05/26/25 11:29 Dose: Not Given Documented By: ZARIA Non-Admin Reason: No Insulin Coverage Magnesium Hydroxide (Milk Of Magnesia 30 Ml Oral.Susp) 30 ml PO DAILY PRN PRN Reason: Constipation Melatonin (Melatonin 3 Mg Tablet) 6 mg PO BEDTIME PRN PRN Reason: Insomnia Ondansetron HCl (Ondansetron Hcl 4 Mg/2 Ml Vial) 4 mg IVPUSH Q8H PRN PRN Reason: Nausea and Vomiting Potassium Chloride (Potassium Chloride Er 20 Meq Tab.Er.Prt) 20 meq PO DAILY [facility] Last Admin: 05/26/25 11:22 Dose: 20 meq Documented By: ZARIA Sodium Chloride (0.9 % Sodium Chloride Flush 3 Ml Syringe) 3 ml IVFLUSH QSHIFT [facility] Last Admin: 05/26/25 08:21 Dose: 3 ml Documented By: ZARIA Labs 05/26/25 05:19 05/26/25 05:19 Labs: Laboratory Results - last 24 hr 05/25/25 05/25/25 05/25/25 15:15 15:22 20:56 MCV 87.3 MCH 24.5 L MCHC 28.1 L RDW 19.2 H Plt Count 288 MPV 8.9 L Immature Gran % (Auto) 0.4 Neut % (Auto) 84.7 H Lymph % (Auto) 6.6 L [place] % (Auto) 5.6 Eos % (Auto) 2.0 Baso % (Auto) 0.7 Lymph # (Auto) 0.8 L [place] # (Auto) 0.7 Eos # (Auto) 0.2 Baso # (Auto) 0.1 Abs Immat Gran (auto) 0.05 H Absolute Neuts (auto) 10.4 H Absolute Nucleated RBC 0.000 Nucleated RBC % (auto) 0.0 VBG pH 7.35 VBG pCO2 60 VBG pO2 54 VBG HCO3 34 H VBG O2 Saturation 76.0 VBG Base Excess 7.1 Anion Gap 15 Estim Creat Clear Calc 72.7 Estimated GFR 52 POC Glucose 97 Random Glucose 115 Calcium 9.5 B-Natriuretic Peptide 579 H Influenza Type A (PCR) NEGATIVE Influenza Type B (PCR) NEGATIVE RSV RNA Qual (PCR) NEGATIVE SARS-CoV-2 RNA (RT-PCR) NEGATIVE 05/26/25 05/26/25 05/26/25 05:19 07:04 11:13 MCV 85.6 MCH 24.7 L MCHC 28.8 L RDW 18.9 H Plt Count 280 MPV 9.5 Immature Gran % (Auto) 0.2 Neut % (Auto) 75.1 H Lymph % (Auto) 14.0 L [place] % (Auto) 7.6 Eos % (Auto) 2.2 Baso % (Auto) 0.9 Lymph # (Auto) 1.4 [place] # (Auto) 0.8 Eos # (Auto) 0.2 Baso # (Auto) 0.1 Abs Immat Gran (auto) 0.02 Absolute Neuts (auto) 7.4 Absolute Nucleated RBC 0.000 Nucleated RBC % (auto) 0.0 VBG pH VBG pCO2 VBG pO2 VBG HCO3 VBG O2 Saturation VBG Base Excess Anion Gap 12 Estim Creat Clear Calc 72.4 Estimated GFR 51 POC Glucose 92 96 Random Glucose 90 Calcium 9.1 B-Natriuretic Peptide Influenza Type A (PCR) Influenza Type B (PCR) RSV RNA Qual (PCR) SARS-CoV-2 RNA (RT-PCR) Assessment and Plan (1) Congestive heart failure: Status: Acute (2) Newly diagnosed diabetes: Status: Acute Plan This is a 69-year-old male with pertinent history of chronic hypoxemic respiratory failure on 3 L supplemental oxygen, combined systolic and diastolic congestive heart failure, atrial fibrillation on anticoagulation, hypertension, mixed hyperlipidemia, LALI on home supplemental oxygen, gout, mood disorder, vdu-hwolfox-aslnishar type 2 diabetes mellitus who presents to the emergency department for evaluation of dyspnea. 1.Acute on chronic hypoxemic respiratory failure secondary to decompensated congestive heart failure(combined systolic/diastolic dysfunction) -Bumex 2 mg IV q.12 hours -continue Aldactone at outpatient dosing -strict I&Os -follow renals/divalents 2.Type 2 kmg-metajgu-ackpogkyo diabetes mellitus -acceptable control on current therapy -lispro correctional scale -adjust as indicated 3.Hypertension -acceptable control on current therapies -adjust as indicated 4.Permanent Atrial fibrillation -acceptable rate control on current therapies -continue Eliquis Eliquis Full code Requires ongoing hospitalization for IV diuresis to treat acute CHF Quality Stroke Does the patient have a stroke diagnosis?: No VTE Prior VTE?: No VTE Risk Level:: Medical - moderate - high VTE Device Contraindication: Treatment Not Indicated VTE Drug Contraindication: N/A - Med Ordered
[2025-05-26 15:57] VITALS: BP 147/75; PULSE 62; RESP 18; TEMP 36.1; O2SAT 94
[2025-05-26 16:14] LABS: Glucose, Whole Blood 109 mg/dL (60-115)
[2025-05-26 20:00] VITALS: BP 164/80; PULSE 70; RESP 18; TEMP 36.2; O2SAT 92
[2025-05-26 21:08] LABS: Glucose, Whole Blood 99 mg/dL (60-115)
[2025-05-26 23:25] VITALS: PULSE 66; RESP 26; O2SAT 89
[2025-05-27 03:53] VITALS: BP 170/82; PULSE 62; RESP 18; TEMP 36.1; O2SAT 93
[2025-05-27 05:35] VITALS: BMI 51.4
[2025-05-27 06:25] LABS: MANUAL DIFF FLAG NO
[2025-05-27 06:58] LABS: Alanine Aminotransferase 8 U/L (0-40); Albumin Level 3.6 g/dL (3.5-5.0); Alkaline Phosphatase 106 U/L (39-117); Anion Gap 16 (12-20); Aspartate Amino Transferase 22 U/L (5-37); Blood Urea Nitrogen 23 mg/dL (9-16); Calcium 9.5 mg/dL (8.4-10.2); Carbon Dioxide 32 mmol/L (22-29); Chloride 101 mmol/L (96-108); Creatinine Clr Calc Pharmacy 66.9; Estimated Glomerular Filt Rate 48; Potassium 3.8 mmol/L (3.3-5.1); Sodium 145 mmol/L (135-145); Total Protein 7.5 g/dL (6.5-8.0)
[2025-05-27 06:59] LABS: Hematocrit 31.3 % (42.0-52.0); Hemoglobin 8.8 g/dl (14.0-18.0); Imm Gran Abs Auto 0.05 X10*3/uL (0.00-0.03); Imm Gran Pct Auto 0.4 % (0.0-0.4); Lymphocytes Absolute Auto 1.0 X10*3/uL (1.2-4.9); Mean Corpuscular HGB Conc 28.1 g/dl (31.0-36.0); Mean Corpuscular Hemoglobin 24.0 pg (27.0-33.0); Mean Corpuscular Volume 85.5 fL (80.0-98.0); NRBC Abs Auto 0.000 X10*3/uL (0.0-0.012); NRBC Pct Auto 0.0 /100WBC (0.0-0.2); Platelet Count 315 X10*3/uL (160-400); Red Blood Count 3.66 X10*6/uL (4.60-5.80); White Blood Count 11.3 X10*3/uL (4.8-10.8)
[2025-05-27 07:46] LABS: Glucose, Whole Blood 86 mg/dL (60-115)
[2025-05-27 08:10] VITALS: BP 135/78; PULSE 57; RESP 20; TEMP 36.1; O2SAT 92
[2025-05-27] MEDS: Bumetanide 1 MG/4 ML VIAL 2 MG IVPUSH ×2 (08:32→16:41)
[2025-05-27] MEDS: Potassium Chloride ER 20 MEQ TAB.ER.PRT PO (08:33)
[2025-05-27] MEDS: 0.9 % Sodium Chloride Flush 3 ML SYRINGE IVFLUSH ×3 (08:33→20:55)
[2025-05-27 11:24] LABS: Glucose, Whole Blood 87 mg/dL (60-115)
--- NOTE | 2025-05-27 12:14 | MHC.CM.PN ---
PT REPORTS HE LIVES AT HOME WITH HIS AND DAUGHTER PT IS INDEPENDENT WITH CARE, HE USES A WALKER AND O2 FROM [facility] HE WAS ACTIVE WITH [facility], HOWEVER IS UNSURE IF THEY ARE GOING TO RETURN HE AGREES TO RETURN REFERRAL BEING MADE HCP ON FILE PCP: [facility]MM DELIVERED DCP: HOME, ? [facility] RESUMPTION TO TRANSPORT
--- NOTE | 2025-05-27 13:30 | HO.PM.IMPN ---
Subjective Subjective Date of Service: 05/27/25 Interval History: No acute issues overnight. O2 weaned back to baseline 3 L Review of Systems Denies chest pain Admits shortness of breath which has improved since admission Denies nausea vomiting diarrhea Denies fever chills Physical Exam Vital Signs: Vital Signs: Last Vital Signs Temp 96.9 F 05/27/25 08:10 Pulse 57 05/27/25 08:10 Resp 20 05/27/25 08:10 BP 135/78 05/27/25 08:10 Pulse Ox 92 05/27/25 08:10 O2 Del Method Nasal Cannula 05/27/25 08:10 O2 Flow Rate 3 05/27/25 08:10 Oxygen Flow Rate 3 05/25/25 14:28 BMI result Body Mass Index 51.4 Const: Other: Awake alert no acute distress Resp: Other: Essentially clear with faint crackles bilateral bases Cardio: Other: No S4; positive S1-S2; no S3 murmurs rubs or gallops GI: Other: Soft nontender nondistended normoactive bowel sounds Extrem: Other: Positive edema Objective Data Active Medications Acetaminophen (Acetaminophen 325 Mg Tablet) 650 mg PO Q6H PRN PRN Reason: Pain, Mild 1-3,fever,headache Last Admin: 05/27/25 12:40 Dose: 650 mg Documented By: ZARIA Amlodipine Besylate (Amlodipine Besylate 5 Mg Tablet) 5 mg PO DAILY [facility]; Protocol Last Admin: 05/27/25 08:33 Dose: 5 mg Documented By: ZARIA Apixaban (Apixaban 5 Mg Tablet) 5 mg PO BID [facility] Last Admin: 05/27/25 08:33 Dose: 5 mg Documented By: ZARIA Atorvastatin Calcium (Atorvastatin Calcium 40 Mg Tablet) 40 mg PO BEDTIME [facility] Last Admin: 05/26/25 20:12 Dose: 40 mg Documented By: ROSALBA Bumetanide (Bumetanide 1 Mg/4 Ml Vial) 2 mg IVPUSH BID@0900,1700 [facility]; Protocol Last Admin: 05/27/25 08:32 Dose: 2 mg Documented By: ZARIA Calcium Carbonate (Calcium Carbonate 750 Mg Tab.Chew) 750 mg PO Q4H PRN PRN Reason: Heartburn Dextrose (Dextrose 50 % 25 Gm/50 Ml Syringe) 25 gm IVPUSH Q15M PRN; Protocol PRN Reason: per Hypoglycemia Standing Ord. Duloxetine HCl (Duloxetine Hcl 30 Mg Capsule.Dr) 30 mg PO BID [facility] Last Admin: 05/27/25 08:33 Dose: 30 mg Documented By: ZARIA Glucose (Glucose Gel 15 Gm Gel..Gram.) 15 gm PO Q15M PRN; Protocol PRN Reason: per Hypoglycemia Standing Ord. Insulin Human Lispro (Insulin Lispro 100 Unit/Ml 3 Ml Vial) 0 unit SUBCUT QIDACHS [facility]; Protocol Last Admin: 05/27/25 12:00 Dose: Not Given Documented By: ZARIA Non-Admin Reason: No Insulin Coverage Magnesium Hydroxide (Milk Of Magnesia 30 Ml Oral.Susp) 30 ml PO DAILY PRN PRN Reason: Constipation Melatonin (Melatonin 3 Mg Tablet) 6 mg PO BEDTIME PRN PRN Reason: Insomnia Ondansetron HCl (Ondansetron Hcl 4 Mg/2 Ml Vial) 4 mg IVPUSH Q8H PRN PRN Reason: Nausea and Vomiting Potassium Chloride (Potassium Chloride Er 20 Meq Tab.Er.Prt) 20 meq PO DAILY [facility] Last Admin: 05/27/25 08:33 Dose: 20 meq Documented By: ZARIA Sodium Chloride (0.9 % Sodium Chloride Flush 3 Ml Syringe) 3 ml IVFLUSH QSHIFT [facility] Last Admin: 05/27/25 08:33 Dose: 3 ml Documented By: ZARIA Labs 05/27/25 05:33 05/27/25 05:33 Labs: Laboratory Results - last 24 hr 05/26/25 05/26/25 05/27/25 16:02 20:52 05:33 MCV 85.5 MCH 24.0 L MCHC 28.1 L RDW 18.9 H Plt Count 315 MPV 9.6 Immature Gran % (Auto) 0.4 Neut % (Auto) 78.1 H Lymph % (Auto) 9.0 L [place] % (Auto) 8.3 Eos % (Auto) 3.5 Baso % (Auto) 0.7 Lymph # (Auto) 1.0 L [place] # (Auto) 0.9 Eos # (Auto) 0.4 Baso # (Auto) 0.1 Abs Immat Gran (auto) 0.05 H Absolute Neuts (auto) 8.8 H Absolute Nucleated RBC 0.000 Nucleated RBC % (auto) 0.0 Anion Gap 16 Estim Creat Clear Calc 66.9 Estimated GFR 48 POC Glucose 109 99 Fasting Glucose 87 Calcium 9.5 Total Bilirubin 0.6 AST 22 ALT 8 Alkaline Phosphatase 106 Total Protein 7.5 Albumin 3.6 05/27/25 05/27/25 07:43 11:18 MCV MCH MCHC RDW Plt Count MPV Immature Gran % (Auto) Neut % (Auto) Lymph % (Auto) [place] % (Auto) Eos % (Auto) Baso % (Auto) Lymph # (Auto) [place] # (Auto) Eos # (Auto) Baso # (Auto) Abs Immat Gran (auto) Absolute Neuts (auto) Absolute Nucleated RBC Nucleated RBC % (auto) Anion Gap Estim Creat Clear Calc Estimated GFR POC Glucose 86 87 Fasting Glucose Calcium Total Bilirubin AST ALT Alkaline Phosphatase Total Protein Albumin Assessment and Plan (1) Congestive heart failure: Status: Acute (2) Acute kidney injury superimposed on CKD: Status: Acute Plan This is a 69-year-old male with pertinent history of chronic hypoxemic respiratory failure on 3 L supplemental oxygen, combined systolic and diastolic congestive heart failure, atrial fibrillation on anticoagulation, hypertension, mixed hyperlipidemia, LALI on home supplemental oxygen, gout, mood disorder, wlr-vdbbpfd-jlxfoftep type 2 diabetes mellitus who presents to the emergency department for evaluation of dyspnea. 1.Acute on chronic hypoxemic respiratory failure secondary to decompensated congestive heart failure(combined systolic/diastolic dysfunction) -Bumex 2 mg IV q.12 hours -continue Aldactone at outpatient dosing -strict I&Os... 4.5 L negative thus far -follow renals/divalents 2.Type 2 njd-cpdqfrp-idacbpkwu diabetes mellitus -acceptable control on current therapy -lispro correctional scale -adjust as indicated 3.Hypertension -acceptable control on current therapies -adjust as indicated 4.Permanent Atrial fibrillation -acceptable rate control on current therapies -continue Eliquis Elimonicais Full code Requires ongoing hospitalization for IV diuresis to treat acute CHF Quality Stroke Does the patient have a stroke diagnosis?: No VTE Prior VTE?: No VTE Risk Level:: Medical - moderate - high VTE Device Contraindication: Treatment Not Indicated VTE Drug Contraindication: N/A - Med Ordered
[2025-05-27 15:27] VITALS: BP 166/70; PULSE 57; RESP 18; TEMP 36.2; O2SAT 95
[2025-05-27 16:14] LABS: Glucose, Whole Blood 100 mg/dL (60-115)
[2025-05-27 19:30] VITALS: BP 151/73; PULSE 58; RESP 18; TEMP 36.3; O2SAT 88
[2025-05-27 20:27] LABS: Glucose, Whole Blood 103 mg/dL (60-115)
[2025-05-27 22:00] VITALS: PULSE 59; RESP 18; O2SAT 92
[2025-05-28 04:00] VITALS: BP 153/76; PULSE 60; RESP 18; TEMP 36.1; O2SAT 90
[2025-05-28 04:10] VITALS: PULSE 62; RESP 18; O2SAT 90
[2025-05-28 05:56] LABS: MANUAL DIFF FLAG NO
[2025-05-28 06:00] VITALS: BMI 50.8
[2025-05-28 06:16] LABS: Alanine Aminotransferase 7 U/L (0-40); Albumin Level 3.4 g/dL (3.5-5.0); Alkaline Phosphatase 96 U/L (39-117); Anion Gap 17 (12-20); Aspartate Amino Transferase 27 U/L (5-37); Blood Urea Nitrogen 28 mg/dL (9-16); Calcium 9.2 mg/dL (8.4-10.2); Carbon Dioxide 33 mmol/L (22-29); Chloride 99 mmol/L (96-108); Creatinine Clr Calc Pharmacy 60.6; Estimated Glomerular Filt Rate 43; Potassium 3.9 mmol/L (3.3-5.1); Sodium 145 mmol/L (135-145); Total Protein 7.0 g/dL (6.5-8.0)
[2025-05-28 06:58] LABS: Hematocrit 29.4 % (42.0-52.0); Hemoglobin 8.5 g/dl (14.0-18.0); Imm Gran Abs Auto 0.03 X10*3/uL (0.00-0.03); Imm Gran Pct Auto 0.3 % (0.0-0.4); Lymphocytes Absolute Auto 1.2 X10*3/uL (1.2-4.9); Mean Corpuscular HGB Conc 28.9 g/dl (31.0-36.0); Mean Corpuscular Hemoglobin 24.6 pg (27.0-33.0); Mean Corpuscular Volume 85.2 fL (80.0-98.0); NRBC Abs Auto 0.000 X10*3/uL (0.0-0.012); NRBC Pct Auto 0.0 /100WBC (0.0-0.2); Platelet Count 306 X10*3/uL (160-400); Red Blood Count 3.45 X10*6/uL (4.60-5.80); White Blood Count 9.8 X10*3/uL (4.8-10.8)
[2025-05-28 07:26] LABS: Glucose, Whole Blood 85 mg/dL (60-115)
[2025-05-28 07:54] VITALS: BP 169/83; PULSE 52; RESP 18; TEMP 36.5; O2SAT 90
[2025-05-28] MEDS: Potassium Chloride ER 20 MEQ TAB.ER.PRT PO (09:03)
[2025-05-28] MEDS: 0.9 % Sodium Chloride Flush 3 ML SYRINGE IVFLUSH (09:05)
[2025-05-28] MEDS: Bumetanide 1 MG/4 ML VIAL 2 MG IVPUSH (09:07)
--- NOTE | 2025-05-28 10:56 | PC.NURSE ---
Refusing alarms for fall interventions
[2025-05-28 11:19] LABS: Glucose, Whole Blood 120 mg/dL (60-115)
[2025-05-28 11:47] VITALS: BMI 50.8
--- NOTE | 2025-05-28 11:54 | MHC.CLN ---
NUTRITION DIET=CARDIAC. HAS DX DM WITH FASTING BLOOD GLUCOSE WNL. STAGE II PRESSURE INJURY TO LEFT BUTTOCK. ADDING ENSURE MAX BID TO PROMOTE WOUND HEALING. SUPPLEMENT PROVIDES 300 KCALS, 60 G PROTEIN. FOLLOW FOR PO INTAKE AND SKIN INTEGRITY. SEE CLINICAL NUTRITION ASSESSMENT 05/28/25.
--- NOTE | 2025-05-28 12:04 | MHC.CM.PN ---
Per MD rounds patient medically cleared for dc home w/ resumption of [facility]. [facility] aware of dc. will transport home at 130pm. [employer] and RN aware.
--- NOTE | 2025-05-28 13:22 | P.DS_ITS ---
DS: Providers Provider Date of Service: 05/28/25 Date of admission: 05/25/25 19:29 Date of discharge: 05/28/25 Primary care physician: ALISA Alejandro- Consults: 05/26/25 10:10 Consult to Wound Care Routine Reason for consultation: open area left buttock DS: Diagnosis Discharge Diagnosis (1) Congestive heart failure: Status: Acute (2) Acute kidney injury superimposed on CKD: Status: Acute DS: Summary Hospital Course Hospital Course: History and physical as per admitting provider. This is a 69-year-old male with pertinent history of, end systolic and diastolic congestive heart failure, atrial fibrillation not on anticoagulation, hypertension, mixed hyperlipidemia, LALI on home supplemental oxygen, gout, mood disorder, [id number] type 2 diabetes mellitus who presents to the emergency department for evaluation of dyspnea. Patient states he has been having dyspnea which is worse with lying down that has been ongoing for the last 2 days. He has been compliant with home medications. Patient thinks he has also gained weight since the last time he was discharged. He noticed that his bilateral lower extremities have been more swollen. No fever, chills or cough. Denies chest pain, palpitations, nausea, vomiting, abdominal pain, changes in urinary or bowel habits. In the emergency department, BNP found to be elevated and imaging with pulmonary edema. Patient was initiated on IV diuresis and initially required BiPAP 69-year-old man treated for acute on chronic hypoxemic respiratory failure s econdary to decompensated congestive heart failure. Treated with IV Bumex, Aldactone.-4.5 L. At this point patient is less short of breath and feels like he is at baseline. He will was transitioned back to oral diuretics and we will continue that at home. Diabetes mellitus type 2. Continue home medications Hypertension. Acceptable blood pressure control. Permanent atrial fibrillation. continue Eliquis. Time Attestation Discharge Coordination Time (in mins): 42 Quality: Safe Use of Opioids Does Pt have an Active Cancer Diagnosis on the Problem List?: No Quality: Stroke Does the patient have a stroke diagnosis?: No Physical Exam Exam: Exam: Appearing in no acute distress head is normocephalic atraumatic eyes pupils are PERRLA sclera is anicteric mouth throat mucous membranes are intact and moist neck is supple no lymphadenopathy, no JVD noted lung sounds are clear to auscultation heart regular rate rhythm, clear S1, S2 positive bowel sounds, abdomen is soft, nontender neuro patient is alert x3, no focal deficits Vital Signs: Vital Signs: Last Vital Signs Temp 97.7 F 05/28/25 07:54 Pulse 52 05/28/25 07:54 Resp 18 05/28/25 07:54 BP 169/83 H 05/28/25 07:54 Pulse Ox 90 L 05/28/25 07:54 O2 Del Method Nasal Cannula 05/28/25 07:54 O2 Flow Rate 4 05/28/25 07:54 Oxygen Flow Rate 3 05/25/25 14:28 BMI result Body Mass Index 50.8 DS: Data Data Completed and Pending Completed studies during hospitalization [Text1]: Procedures Assistance with Respiratory Ventilation, Less than 24 Consecutive Hours, Continuous Positive Airway Pressure (10/26/24) Introduction of Vasopressor into Peripheral Vein, Percutaneous Approach (10/26/24) Respiratory Ventilation, Less than 24 Consecutive Hours (10/26/24) Labs on day of discharge: Laboratory Results - last 24 hr 05/27/25 05/27/25 05/28/25 16:10 20:24 05:31 WBC 9.8 RBC 3.45 L Hgb 8.5 L Hct 29.4 L MCV 85.2 MCH 24.6 L MCHC 28.9 L RDW 18.7 H Plt Count 306 MPV 9.4 Immature Gran % (Auto) 0.3 Neut % (Auto) 75.2 H Lymph % (Auto) 12.1 L [place] % (Auto) 7.5 Eos % (Auto) 4.1 H Baso % (Auto) 0.8 Lymph # (Auto) 1.2 [place] # (Auto) 0.7 Eos # (Auto) 0.4 Baso # (Auto) 0.1 Abs Immat Gran (auto) 0.03 Absolute Neuts (auto) 7.4 Absolute Nucleated RBC 0.000 Nucleated RBC % (auto) 0.0 Sodium 145 Potassium 3.9 Chloride 99 Carbon Dioxide 33 H Anion Gap 17 BUN 28 H Creatinine 1.59 H Estim Creat Clear Calc 60.6 Estimated GFR 43 POC Glucose 100 103 Fasting Glucose 90 Calcium 9.2 Total Bilirubin 0.6 AST 27 ALT 7 Alkaline Phosphatase 96 Total Protein 7.0 Albumin 3.4 L 05/28/25 05/28/25 07:22 11:15 WBC RBC Hgb Hct MCV MCH MCHC RDW Plt Count MPV Immature Gran % (Auto) Neut % (Auto) Lymph % (Auto) [place] % (Auto) Eos % (Auto) Baso % (Auto) Lymph # (Auto) [place] # (Auto) Eos # (Auto) Baso # (Auto) Abs Immat Gran (auto) Absolute Neuts (auto) Absolute Nucleated RBC Nucleated RBC % (auto) Sodium Potassium Chloride Carbon Dioxide Anion Gap BUN Creatinine Estim Creat Clear Calc Estimated GFR POC Glucose 85 120 H Fasting Glucose Calcium Total Bilirubin AST ALT Alkaline Phosphatase Total Protein Albumin Discharge Plan Discharge Anticipated Discharge Date/Time: 05/28/25 13:20 Patient Disposition: Home, Self-Care Discharge Diagnosis: Acute on chronic hypoxemic respiratory failure Decompensated congestive heart failure Referrals: Emili BORJA [Outside] - 3-5 Days Referral Note: resume services Hernandez Jameson, [facility] [Primary Care Provider, Internal Medicine] - 1 Week Discharge Medications: Continued (DME) oxygen continuous 2-3L/min-pt needs portable tanks-appropriate # to allow him to attend appts. See Rx Instructions .Route .MEDSUPPLY Qty: 1 0RF Rx Instructions: As directed allopurinol 300 mg tablet 300 mg PO BID 90 Days Qty: 180 1RF duloxetine 30 mg capsule,delayed release(DR/EC) 30 mg PO BID Qty: 180 1RF metformin 500 mg tablet 500 mg PO BID Qty: 180 1RF atorvastatin [Lipitor] 40 mg tablet 40 mg PO BEDTIME Qty: 30 2RF bumetanide 1 mg Tablet 2 mg PO DAILY Qty: 90 0RF Protocol: Hold for SBP< HOLD for SBP < : 90 amlodipine 5 mg Tablet 5 mg PO DAILY Qty: 30 0RF Protocol: Hold for SBP< HOLD for SBP < : 90 potassium chloride 20 mEq tablet extended release 20 meq PO DAILY Discharge Orders: Discharge Order (Routine); Ordered 05/28/25 Ordered By: Lian Matthews Diet: Advance to usual diet Activity on Discharge: As tolerated Stand Alone Forms: Patient Portal Discharge page Print Language: Kyrgyz Care Plan Goals: Continue home Bumex Check daily weights, if you gain more than 3 lb in over 24 hours follow up with primary care provider Health Concerns: Acute on chronic hypoxemic respiratory failure Decompensated congestive heart failure Plan of Treatment: Follow up with primary care provider as needed Take all medications as prescribed Assessment: See discharge summary Patient Instructions: Heart Failure (DC), Low-Sodium Diet (GEN) Discharge Date/Time: 05/28/25 14:01
[2025-05-28 14:00] VITALS: BP 120/60; PULSE 64; RESP 18; TEMP 36.4; O2SAT 99
== END 2025-05-28 14:01 | disposition home or self-care (01) | DRG 291 ==
LOC: HO.ED 19:28 → HO.EDOVER 19:48 → HO.S3 20:47
PROVIDERS: Hospitalist; Admitting Provider Student in an Organized Health Care Education/Training Program; Emergency Provider Student in an Organized Health Care Education/Training Program; PCP Nurse Practitioner Family; Visit Provider Nurse Practitioner Acute Care
DX: I11.0 Hypertensive heart disease with heart failure (principal); I50.43 Acute on chronic combined systolic (congestive) and diastolic (congestive) heart failure; J96.21 Acute and chronic respiratory failure with hypoxia; Z68.43 Body mass index [BMI] 50.0-59.9, adult; I48.21 Permanent atrial fibrillation; E66.01 Morbid (severe) obesity due to excess calories; G47.33 Obstructive sleep apnea (adult) (pediatric); E11.9 Type 2 diabetes mellitus without complications; E78.2 Mixed hyperlipidemia; Z71.3 Dietary counseling and surveillance; Z20.822 Contact with and (suspected) exposure to COVID-19; Z99.81 Dependence on supplemental oxygen; Z79.84 Long term (current) use of oral hypoglycemic drugs; Z79.899 Other long term (current) drug therapy
CPT/HCPCS: 36415; 71045; 80048; 80053; 82803; 82947; 83880; 84484; 85025; 87637; 93005; 94640; 94660; 99285; J1938; J1939

== ENCOUNTER → 2025-05-25 14:57 | Outpatient (BNV) | payer MEDICARE, SELFPAY | PROVIDERS: Admitting Provider Student in an Organized Health Care Education/Training Program; Emergency Provider Student in an Organized Health Care Education/Training Program; PCP Nurse Practitioner Family; Visit Provider Internal Medicine Cardiovascular Disease | DX: I48.91 Unspecified atrial fibrillation (principal); Z95.0 Presence of cardiac pacemaker | CPT/HCPCS: 93010 ==

== ENCOUNTER → 2025-05-25 19:29 | Outpatient (BNV) | payer MEDICARE, SELFPAY | PROVIDERS: Admitting Provider Student in an Organized Health Care Education/Training Program; Emergency Provider Student in an Organized Health Care Education/Training Program; PCP Nurse Practitioner Family; Visit Provider Student in an Organized Health Care Education/Training Program | DX: I50.9 Heart failure, unspecified (principal); N17.9 Acute kidney failure, unspecified; N18.9 Chronic kidney disease, unspecified | CPT/HCPCS: 99222; 99239 ==

== ENCOUNTER → 2025-06-26 23:59 | Outpatient (BNV) | payer MEDICARE, SELFPAY | PROVIDERS: PCP Nurse Practitioner Family; Visit Provider Nurse Practitioner Family | DX: J96.21 Acute and chronic respiratory failure with hypoxia (principal); I13.0 Hypertensive heart and chronic kidney disease with heart failure and stage 1 through stage 4 chronic kidney disease, or unspecified chronic kidney disease; I50.42 Chronic combined systolic (congestive) and diastolic (congestive) heart failure; N18.30 Chronic kidney disease, stage 3 unspecified | CPT/HCPCS: G0180 ==

== ENCOUNTER 2025-07-13 19:46 | Inpatient (IN) | payer MEDICARE, SELFPAY ==
[2025-07-13] VITALS (7 sets, daily range): BP systolic 158–199; BP diastolic 82–120; PULSE 60–71; RESP 15–32; TEMP 36.6–36.7; O2SAT 97–100; BMI 56.8
--- NOTE | 2025-07-13 | ECG_ITS ---
Test Reason : DSYPNEA Blood Pressure : */* mmHG Vent. Rate : 67 BPM Atrial Rate : * BPM P-R Int : * ms QRS Dur : 102 ms QT Int : 374 ms P-R-T Axes : * 111 109 degrees QTcB Int : 395 ms Atrial fibrillation Right axis deviation Low voltage QRS Nonspecific T wave abnormality Abnormal ECG When compared with ECG of 25-May-2025 14:57, QT has shortened Referred By: Generic ED Physician Electronically Signed By: JET NOVOA MD
--- NOTE | ~2025-07-13 | XR_ITS ---
CLINICAL HISTORY: SOB, ?CHF 1 view chest x-ray Comparison: 04/09/2025 Findings: Portions of the exam are obscured by overlying material. There is bilateral lower lobe consolidation, possible pneumonia atelectasis Heart size is normal. No acute fracture. IMPRESSION: 1. Bilateral lower lobe consolidation, differential considerations noted. This document has been electronically signed by: Arnaldo Guerrero MD on 07/14/2025 08:47:01
--- NOTE | 2025-07-13 20:05 | PC.NURSE ---
pt placed on bed side monitor, labs collected and sent, ekg completed, report given to primary nurse.
--- NOTE | 2025-07-13 20:08 | PC.NURSE ---
notified provider andrea of pt sob.
[2025-07-13 20:24] LABS: MANUAL DIFF FLAG NO
[2025-07-13 20:26] LABS: Hematocrit 22.8 % (42.0-52.0); Imm Gran Abs Auto 0.06 X10*3/uL (0.00-0.03); Imm Gran Pct Auto 0.6 % (0.0-0.4); Lymphocytes Absolute Auto 1.4 X10*3/uL (1.2-4.9); Mean Corpuscular HGB Conc 28.1 g/dl (31.0-36.0); Mean Corpuscular Hemoglobin 23.0 pg (27.0-33.0); Mean Corpuscular Volume 82.0 fL (80.0-98.0); NRBC Abs Auto 0.020 X10*3/uL (0.0-0.012); NRBC Pct Auto 0.2 /100WBC (0.0-0.2); Platelet Count 218 X10*3/uL (160-400); Red Blood Count 2.78 X10*6/uL (4.60-5.80); White Blood Count 10.2 X10*3/uL (4.8-10.8)
[2025-07-13 20:29] LABS: Venous Blood Gas Refer to POC result
[2025-07-13 20:29] LABS: VBG HCO3 26 mmol/L (22-26)
--- NOTE | 2025-07-13 20:29 | ED_ITS ---
HPI - SOB/Dyspnea General Chief Complaint: Dyspnea Stated Complaint: Diff breathing, swollen legs Time Seen by Provider: 07/13/25 20:26 Source: patient, EMS and old records reviewed Mode of arrival: EMS Limitations: no limitations History of Present Illness ED Provider: DR. Chung HPI Narrative: 69-year-old male with pertinent history of CHF, AFib not on anticoagulation, HTN, HLD, LALI on home supplemental oxygen, gout, mood disorder, non insulin dependent T2 DM presented to the emergency department with difficulty breathing patient feels that he is gaining weight by retaining fluid in his extremity in his belly. Patient is compliant with his diuresis, making urine normally. No fever, no chills, no shortness of breath. Patient also noticed to be pale when he was asked but his bowel movement he said he had a black bowel movement for the past 2 days. No abdominal pain, no nausea, no vomiting, no anticoagulation therapy. Related Data Home Medications ?Medication ?Instructions ?Recorded ?Confirmed potassium chloride 20 mEq 20 meq PO DAILY 05/25/25 tablet,extended release Previous Rx's ?Medication ?Instructions ?Recorded oxygen continuous 2-3L/min-pt #1 ea 12/06/23 needs portable tanks-appropriate # to allow him to attend appts. duloxetine 30 mg capsule,delayed 30 mg PO BID #180 cap s 01/08/25 release metformin 500 mg tablet 500 mg PO BID for diabetes 0 01/11/25 mellitus #180 tabs amlodipine 5 mg tablet 5 mg PO DAILY #30 tabs 04/19 bumetanide 1 mg tablet 2 mg PO DAILY #90 tabs 04/19 allopurinol 300 mg tablet 300 mg PO BID 90 days #180 t abs 06/01/25 atorvastatin 40 mg tablet (Lipitor) 40 mg PO BEDTIME # 30 tabs 06/27/25 Allergies Allergy/AdvReac Type Severity Reaction Status Date / Time No Known Allergies Allergy Verified 07/13/25 19:59 Review of Systems 2 Review of Systems: All other systems are reviewed and are negative Constitutional: Reports as per HPI and Reports no additional constitutional complaints Eyes: Reports as per HPI and Reports no additional eye complaints Reports system reviewed and no additional complaints, except as documented Cardiovascular: Reports as per HPI and Reports no additional cardiovascular complaints Respiratory: Reports as per HPI and Reports no additional respiratory complaints Gastrointestinal: Reports as per HPI and Reports no additional gastrointestinal complaints Genitourinary: Reports no additional female genitourinary complaints Musculoskeletal: Reports no additional musculoskeletal complaints Skin/Breast: Reports system reviewed and no additional complaints, except as docu Psychiatric: Reports no additional psychiatric complaints Endocrine: Reports no additional endocrine complaints Hematologic/Lymphatic: Reports no additional hematologic/lymphatic complaints Allergic/Immunologic: Reports no additional allergic/immunologic complaints Reports system reviewed and no additional complaints, except as documented and Reports Abnormal speech present FOR[facility]LY [facility], [facility] Past Medical History Medical History Respiratory failure Congestive heart failure Persistent atrial fibrillation Screening PSA (prostate specific antigen) Morbid obesity Elevated serum creatinine Right heart failure Leg pain FOREST (acute kidney injury) Leukocytosis LALI (obstructive sleep apnea) Hyperlipidemia HTN (hypertension) Diastolic heart failure Newly diagnosed diabetes Acute gout of left foot Chronic fatigue Pulmonary arterial hypertension Cerebrovascular accident (CVA) Surgical History Hx of shoulder surgery No pertinent past surgical history Family History Family History Father Blood clot in vein Mother Cancer Social History Social History Household Members: Spouse Housing: House Do you presently have visiting nurse or other home services: No Alcohol intake: former Patient Tobacco Use Status: Never used Tobacco Years Smoked: nonsmoker e-Cigarette/Vaping Use: Never Used Second Hand Smoke Exposure: No Substance Use Type: Unknown Advance Directives: Yes Advance Directives on File: Yes Advance Directives Date on File: 12/03/20 Do you have a plan to hurt others: No Plan service: No Current occupational status: unemployed Physical Exam 2 Vital Signs: Vital Signs: Last Vital Signs Temp 97.9 F 07/13/25 19:54 Pulse 69 07/13/25 19:54 Resp 32 H 07/13/25 19:54 BP 199/101 H 07/13/25 19:54 Pulse Ox 100 07/13/25 19:54 O2 Del Method Nasal Cannula 07/13/25 19:54 Oxygen Flow Rate 4 07/13/25 19:54 BMI result Body Mass Index 56.8 Vital signs have been reviewed and appear to be correct. Blood pressure elevated. Heart rate normal. Respiratory rate normal. Temperature normal. Oxygen saturation normal. Appearance: Pale, Alert. Oriented X3. No acute distress. Head: Normal external exam. Normocephalic. Atraumatic. No Belcher signs noted. No raccoon eyes noted Eyes: PERRLA. EOMI. Conjunctiva and sclera normal. Eyelids normal. ENT: TM's Normal. Pharynx normal. Uvula midline. Moist mucous membranes. No trismus noted. No drooling noted. No muffled voice noted. Neck: Normal inspection. Neck supple. FROM. No adenopathy. Thyroid Normal. No meningeal signs. No neck mass noted. CVS: Normal heart rate and rhythm. Heart sound normal. No murmurs noted. Pulses normal throughout. Respiratory: No respiratory distress. Painless inspiration. Breath sounds normal. No wheezes/rales/rhonchi noted. Chest nontender. No accessory muscle usage noted or decreased air movement noted. Abdomen: Soft and nontender. Bowel sounds normal in all 4 quadrants. No distention noted. No organomegaly noted. No visible injury noted. Rectal: Lack colored stool guaiac positive. Back: No CVA tenderness. Full range of motion noted. Skin: Skin warm and dry. Normal skin color. Normal skin turgor. No rashes/lesions/lacerations noted. Extremities: No lower extremity edema. Extremities exhibit normal range of motion. Extremities nontender. Neuro: Oriented X 3. Cranial nerve exam: II-XII are grossly intact No motor deficit. No sensory deficit. Reflexes normal. Course Reevaluation(s) Reevaluation #1: Anemia secondary to GI bleed and melena will transfuse RBC. Lactic acidosis secondary to anemia and low hemoglobin and low tissue perfusion, patient do not have sepsis however chest x-ray is likely congestive heart failure but multilobar pneumonia can not be ruled out patient will get a empirical dose of antibiotic. Continue diuresis and nitro for CHF. Medical admission. Time: 21:17 Medical Decision Making Differential Diagnosis Differential Diagnoses: The differential diagnosis associated with the presentation includes (ACS, electrolyte derangement, severe anemia, GI bleed, COPD, CHF.) Admission/Observation Consideration of admission/observation: Escalation of care including admission/observation considered Consult Healthcare Provider Management of the patient was discussed with: Hospitalist (Dr. Park) Lab Data MDM Lab Attestation statement: I reviewed the patient's lab results. 07/13/25 20:13 07/13/25 20:13 Labs: Lab Results 07/13/25 07/13/25 Range/Units 20:13 20:25 WBC 10.2 (4.8-10.8) X10*3/uL RBC 2.78 L (4.60-5.80) X10*6/uL Hgb 6.4 L* D (14.0-18.0) g/dl Hct 22.8 L D (42.0-52.0) % MCV 82.0 (80.0-98.0) fL MCH 23.0 L (27.0-33.0) pg MCHC 28.1 L (31.0-36.0) g/dl RDW 18.6 H (11.0-16.0) % Plt Count 218 D (160-400) X10*3/uL MPV 9.5 (9.4-12.4) fL Immature Gran % (Auto) 0.6 H (0.0-0.4) % Neut % (Auto) 78.6 H (45-73) % Lymph % (Auto) 13.7 L (20-40) % [place] % (Auto) 4.7 (2-11) % Eos % (Auto) 1.3 (0-4) % Baso % (Auto) 1.1 (0-2) % Lymph # (Auto) 1.4 (1.2-4.9) X10*3/uL [place] # (Auto) 0.5 (0.1-1.2) X10*3/uL Eos # (Auto) 0.1 (0.0-0.4) X10*3/uL Baso # (Auto) 0.1 (0.0-0.2) X10*3/uL Abs Immat Gran (auto) 0.06 H (0.00-0.03) X10*3/uL Absolute Neuts (auto) 8.0 (2.0-8.3) x10*3/uL Absolute Nucleated RBC 0.020 H (0.0-0.012) X10*3/uL Nucleated RBC % (auto) 0.2 (0.0-0.2) /100WBC VBG pH 7.45 H (7.32-7.43) VBG pCO2 37 mmHg VBG pO2 103 mmHg VBG HCO3 26 (22-26) mmol/L VBG O2 Saturation TNP VBG Base Excess 2.7 mmol/L Sodium 144 (135-145) mmol/L Potassium 4.6 (3.3-5.1) mmol/L Chloride 110 H (96-108) mmol/L Carbon Dioxide 24 (22-29) mmol/L Anion Gap 15 (12-20) BUN 43 H (9-16) mg/dL Creatinine 1.70 H (0.5-1.4) mg/dL Estim Creat Clear Calc 60.2 Estimated GFR 40 Random Glucose 121 H (60-115) mg/dL Lactic Acid 2.4 H* (0.5-2.0) mmol/L Calcium 9.6 (8.4-10.2) mg/dL Total Bilirubin 0.3 (0.0-1.0) mg/dL AST 25 (5-37) U/L ALT 9 (0-40) U/L Alkaline Phosphatase 74 (39-117) U/L Troponin I High Sens 30.2 (<3.5-35.0) ng/L Total Protein 7.0 (6.5-8.0) g/dL Albumin 3.7 (3.5-5.0) g/dL Influenza Type A (PCR) NEGATIVE (Negative) Influenza Type B (PCR) NEGATIVE (Negative) RSV RNA Qual (PCR) NEGATIVE (Negative) SARS-CoV-2 RNA (RT-PCR) NEGATIVE (Negative) Independent Interpretation I performed an independent interpretation of an: Plain X-Ray (Suspected pulmonary edema versus multifocal pneumonia. Cardiomegaly. CPPD arthropathy, bilateral shoulder joints. ) Radiology Impression Discussion of test interpretation with radiology: I have reviewed the radiologist's reading. Critical Care Time Critical Care Time Critical Care Time: Yes Total Critical Care Time: 60 Attestation: The patient was critically ill with a high probability of imminent or life- threatening deterioration. I spent greater than 30 minutes of discontinuous time evaluating the patient, delivering critical care at the bedside, discussing evaluating data with consultants. Critical care time does not include time spent performing separately billable procedures or teaching. Time spent performing critical care was 60 minutes. Discharge Plan Discharge Clinical Impression: Melena, Anemia Patient Disposition: Admitted As Inpatient Print Language: Beninese
[2025-07-13 20:36] LABS: Hemoglobin 6.4 g/dl (14.0-18.0)
[2025-07-13 20:42] LABS: Alanine Aminotransferase 9 U/L (0-40); Albumin Level 3.7 g/dL (3.5-5.0); Alkaline Phosphatase 74 U/L (39-117); Anion Gap 15 (12-20); Aspartate Amino Transferase 25 U/L (5-37); Blood Urea Nitrogen 43 mg/dL (9-16); Calcium 9.6 mg/dL (8.4-10.2); Carbon Dioxide 24 mmol/L (22-29); Chloride 110 mmol/L (96-108); Creatinine Clr Calc Pharmacy 60.2; Estimated Glomerular Filt Rate 40; Potassium 4.6 mmol/L (3.3-5.1); Sodium 144 mmol/L (135-145); Total Protein 7.0 g/dL (6.5-8.0)
[2025-07-13 20:49] LABS: Troponin-I High Sensitivity 30.2 ng/L (<3.5-35.0)
--- NOTE | 2025-07-13 20:56 | PC.NURSE ---
Provider at bedside to place U/S iv
[2025-07-13 21:03] LABS: Resp Syncy Virus RNA Qual PCR NEGATIVE (Negative); SARS COV2 PCR INHOUSE NEGATIVE (Negative)
--- NOTE | 2025-07-13 21:15 | PC.NURSE ---
Provider unsuccessful w/ iv placement, awaiting for another provider to attempt
--- NOTE | 2025-07-13 21:35 | PC.NURSE ---
U/S iv placed by SILVINA Park
[2025-07-13] MEDS: Furosemide 100 MG/10 ML VIAL 60 MG IVPUSH (21:50)
[2025-07-13] MEDS: Nitroglycerin 2 % Oint 1 GM Packet 0.5 INCH TRANSDERMA (21:51)
[2025-07-13 21:58] LABS: OBS Int Ctl Valid YES; OBS1 POSITIVE (NEGATIVE)
[2025-07-13 22:23] LABS: Reflex Lactate? Lactic Acid Added
--- NOTE | 2025-07-13 22:23 | P.HPHOSP_ITS ---
History of Present Illness Date of Service: 07/13/25 Chief Complaint: Shortness of breath 69-year-old male with a past medical history of HTN, HLD, LALI on home oxygen, AFib-not on anticoagulation; morbid obesity, CKD, diastolic heart failure, CVA, diabetes presented to the hospital today with a chief complaint of shortness of breath. Patient reported that over the past couple days he has been having shortness of breath. Worsens on exertion. Also reports mild orthopnea. Mentions weight gain. Reports he has been compliant with his home medications. Also reports over the past couple days he noticed black-colored stools. Denies any abdominal pain. Denies nausea or vomiting. Denies any fevers and chills. Denies any chest pain or palpitations. Review of all other systems is negative except mentioned above ER course: Per ER team, patient has been in abdominal examination; noted to have crackles; concern for mild CHF. Also on labs noted to have hemoglobin of 6.4. Patient being transfused 2 units of PRBC. [facility] Medical History Respiratory failure Congestive heart failure Persistent atrial fibrillation Screening PSA (prostate specific antigen) Morbid obesity Elevated serum creatinine Right heart failure Leg pain FOREST (acute kidney injury) Leukocytosis LALI (obstructive sleep apnea) Hyperlipidemia HTN (hypertension) Diastolic heart failure Newly diagnosed diabetes Acute gout of left foot Chronic fatigue Pulmonary arterial hypertension Cerebrovascular accident (CVA) Family History Father Blood clot in vein Mother Cancer Surgical History Hx of shoulder surgery No pertinent past surgical history Social History Household Members: Spouse Housing: House Do you presently have visiting nurse or other home services: No Alcohol intake: former Patient Tobacco Use Status: Never used Tobacco Years Smoked: nonsmoker Smoked in Last 30 Days: No e-Cigarette/Vaping Use: Never Used Second Hand Smoke Exposure: No Use of substances other than those prescribed or required for medical reasons: No Substance Use Type: Unknown Advance Directives: Yes Advance Directives on File: Yes Advance Directives Date on File: 12/03/20 Do you have a plan to hurt others: No Plan service: No Current occupational status: unemployed Meds Allergies Allergy/AdvReac Type Severity Reaction Status Date / Time No Known Allergies Allergy Verified 07/13/25 19:59 Home Medications ?Medication ?Instructions ?Recorded ?Confirmed ?Last Taken ?Type potassium chloride 20 mEq 20 meq PO DAILY 05/25/2505/24/25 History tablet,extended release Physical Exam 2 Vital Signs and Narrative: Vital Signs: Last Vital Signs Temp 97.9 F 07/13/25 19:54 Pulse 60 07/13/25 21:51 Resp 17 07/13/25 21:36 BP 177/86 H 07/13/25 21:51 Pulse Ox 100 07/13/25 21:36 O2 Del Method Nasal Cannula 07/13/25 21:36 O2 Flow Rate 4 07/13/25 21:36 Oxygen Flow Rate 4 07/13/25 19:54 BMI result Body Mass Index 56.8 Gen: Appears be in no acute distress HEENT: NCAT, Moist mucosa. Pulmonary: Vesicular breath sounds, fair air entry CVS: Normal S1-S2 Abdomen: BS+, Soft, Nontender Extremities: Warm well perfused Neuro: Alert and awake. Results Labs 07/13/25 20:13 07/13/25 20:13 Labs: Laboratory Results - last 24 hr 07/13/25 07/13/25 07/13/25 20:13 20:25 21:40 MCV 82.0 MCH 23.0 L MCHC 28.1 L RDW 18.6 H Plt Count 218 D MPV 9.5 Immature Gran % (Auto) 0.6 H Neut % (Auto) 78.6 H Lymph % (Auto) 13.7 L [place] % (Auto) 4.7 Eos % (Auto) 1.3 Baso % (Auto) 1.1 Lymph # (Auto) 1.4 [place] # (Auto) 0.5 Eos # (Auto) 0.1 Baso # (Auto) 0.1 Abs Immat Gran (auto) 0.06 H Absolute Neuts (auto) 8.0 Absolute Nucleated RBC 0.020 H Nucleated RBC % (auto) 0.2 VBG pH 7.45 H VBG pCO2 37 VBG pO2 103 VBG HCO3 26 VBG O2 Saturation TNP VBG Base Excess 2.7 Anion Gap 15 Estim Creat Clear Calc 60.2 Estimated GFR 40 Random Glucose 121 H Lactic Acid 2.4 H* Calcium 9.6 Total Bilirubin 0.3 AST 25 ALT 9 Alkaline Phosphatase 74 Troponin I High Sens 30.2 Total Protein 7.0 Albumin 3.7 Stool Occult Blood POSITIVE Influenza Type A (PCR) NEGATIVE Influenza Type B (PCR) NEGATIVE RSV RNA Qual (PCR) NEGATIVE SARS-CoV-2 RNA (RT-PCR) NEGATIVE Crossmatch See Detail Assessment and Plan (1) Anemia: Qualifiers: Anemia type: unspecified type Qualified Code(s): D64.9 - Anemia, unspecified Status: Acute Plan 69-year-old male with a past medical history of HTN, HLD, LALI on home oxygen, AFib-not on anticoagulation; morbid obesity, CKD, diastolic heart failure, CVA, diabetes presented to the hospital today with a chief complaint of shortness of breath. Admitted for following Acute on chronic HFpEF: Daily weights and I's and o's Telemetry Lasix 40 mg IV daily Cardiology consult Anemia secondary to GI bleed: Patient being transfused 2 units of PRBC. We will also obtain iron studies, folate and B12 GI consult IV ppi NPO Mild OFREST on CKD: Baseline creatinine around 1.31.4. Creatinine on presentation is 1.7. Monitor renal function while diuresing. LALI: Patient on supplemental oxygen Hypertension: Continue home amlodipine Diabetes: Insulin sliding scale DVT prophylaxis: SCD boots Code status: Full code Quality Stroke Does the patient have a stroke diagnosis?: No VTE Prior VTE?: No VTE Risk Level:: Medical - moderate - high VTE Device Contraindication: N/A - Device Ordered VTE Drug Contraindication: Treatment Not Indicated
[2025-07-13 23:14] LABS: Iron 14 mcg/dL (45-160); Percent Iron Saturation 4 % (15-50); Total Iron Binding Capacity 354 mcg/dL (228-428); Unsaturated Iron Binding 340 ug/dL
[2025-07-13 23:35] LABS: ~Lactic Acid-LAB USE ONLY 1.0 mmol/L (0.5-2.0)
[2025-07-14] VITALS (17 sets, daily range): BP systolic 127–177; BP diastolic 59–87; PULSE 51–67; RESP 12–22; TEMP 36.1–36.7; O2SAT 96–100; BMI 56.1; BMI 56.9
[2025-07-14 07:33] LABS: Glucose, Whole Blood 91 mg/dL (60-115)
[2025-07-14 08:00] LABS: MANUAL DIFF FLAG NO
[2025-07-14 08:16] LABS: Hematocrit 24.3 % (42.0-52.0); Imm Gran Abs Auto 0.03 X10*3/uL (0.00-0.03); Imm Gran Pct Auto 0.3 % (0.0-0.4); Lymphocytes Absolute Auto 1.5 X10*3/uL (1.2-4.9); Mean Corpuscular HGB Conc 28.0 g/dl (31.0-36.0); Mean Corpuscular Hemoglobin 23.4 pg (27.0-33.0); Mean Corpuscular Volume 83.5 fL (80.0-98.0); NRBC Abs Auto 0.000 X10*3/uL (0.0-0.012); NRBC Pct Auto 0.0 /100WBC (0.0-0.2); Platelet Count 182 X10*3/uL (160-400); Red Blood Count 2.91 X10*6/uL (4.60-5.80); White Blood Count 8.7 X10*3/uL (4.8-10.8)
[2025-07-14 08:37] LABS: Anion Gap 14 (12-20); Blood Urea Nitrogen 44 mg/dL (9-16); Calcium 9.0 mg/dL (8.4-10.2); Carbon Dioxide 27 mmol/L (22-29); Chloride 109 mmol/L (96-108); Creatinine Clr Calc Pharmacy 60.1; Estimated Glomerular Filt Rate 40; Potassium 4.4 mmol/L (3.3-5.1); Sodium 146 mmol/L (135-145)
[2025-07-14 08:41] LABS: Hemoglobin 6.8 g/dl (14.0-18.0)
[2025-07-14 08:58] LABS: NT Pro B Type Natriuretic Pept 6111.2 pg/mL (<300)
[2025-07-14 09:13] LABS: Folate 13.0 ng/mL (> or = 4.0); Vitamin B12 332 pg/mL (200-900)
[2025-07-14] MEDS: 0.9 % Sodium Chloride Flush 3 ML SYRINGE IVFLUSH ×2 (09:24→20:40)
--- NOTE | 2025-07-14 09:39 | PHA.MEDREC ---
Addendum entered by Eleno Roa PharmD 07/14/25 09:58: MED REC CHECKED BY [facility] Original Note: Pharmacy Consult ? Medication Reconciliation Pharmacy has completed the medication reconciliation. Confirmed medication list with patient and med list brought from home when patient was admitted.
[2025-07-14 11:39] LABS: Glucose, Whole Blood 86 mg/dL (60-115)
--- NOTE | 2025-07-14 11:43 | PM.CNCAR ---
History of Present Illness History of Present Illness Date of Service: 07/14/25 Requesting physician: Trey Garza Consult reason: congestive heart failure and other (Black stools) Chief complaint: chf Narrative: I was requested to see Chuck in cardiology consultation today for worsening shortness of breath as well as severe anemia. Patient is a 69-year-old male only seen by Cardiology in the hospital in the last few years. Last seen in April at which time he was seen for congestive heart failure and treatment of congestive heart failure very was already doing better. He has chronic persistent atrial fibrillation for the last year or so at that time he was on oral anticoagulation therapy on Eliquis. This admission comes without oral anticoagulation therapy. He does not know he is not a very good historian. Patient said he came because he is progressively more short of breath and increased leg swelling and inability to lay down. He also noticed dog black stools over the last few days. When he came in he was noted to be significantly anemic, currently receiving blood transfusion. Also receiving IV Lasix but only 40 mg daily, received 60 mg yesterday in the ED. Overall negative balance of 1300 cc. He said he has been diuresing. Still appears to be short of breath and still fluid overloaded. Noted to be in AFib which is persistent with rate controlled. He said home diuretics have not been working as reasonably well as in the past. While sleeping noted to be heart rate in the 30s and 40s in atrial fibrillation. Currently not on any rate lowering medications. Review of Systems Constitutional: Constitutional: Reports weakness and Reports weight gain Eyes: Eyes: Reports no additional eye complaints Cardiovascular: Cardiovascular: Denies chest pain, Reports leg edema, Denies lightheadedness, Denies Loss of Consciousness, Denies palpitations, Reports dyspnea on exertion and Reports orthopnea Respiratory: Respiratory: Reports dyspnea on exertion Gastrointestinal: Gastrointestinal: Reports melena Genitourinary: Genitourinary: Reports no additional male genitourinary complaints Musculoskeletal: Musculoskeletal: Reports no additional musculoskeletal complaints Neurologic: Reports system reviewed and no additional complaints, except as documented and Reports weakness Psychiatric: Psychiatric: Reports no additional psychiatric complaints Endocrine: Endocrine: Denies palpitations [facility] Past Medical History Medical History (Updated 07/14/25 @ 11:52 by Leopoldo Dwyer MD) Persistent atrial fibrillation Respiratory failure Congestive heart failure Screening PSA (prostate specific antigen) Morbid obesity Elevated serum creatinine Right heart failure Leg pain FOREST (acute kidney injury) Leukocytosis LALI (obstructive sleep apnea) Hyperlipidemia HTN (hypertension) Diastolic heart failure Newly diagnosed diabetes Acute gout of left foot Chronic fatigue Pulmonary arterial hypertension Cerebrovascular accident (CVA) Family History Family History Father Blood clot in vein Mother Cancer Surgical History Surgical History Hx of shoulder surgery No pertinent past surgical history Social History Social History Household Members: Spouse and Children Household Members Other:: pt lives with grand daughter Housing: Apartment Do you presently have visiting nurse or other home services: No Alcohol intake: former Patient Tobacco Use Status: Never used Tobacco Years Smoked: nonsmoker Smoked in Last 30 Days: No e-Cigarette/Vaping Use: Never Used Second Hand Smoke Exposure: No Use of substances other than those prescribed or required for medical reasons: No Substance Use Type: Unknown Have you been hit, kicked, punched, or otherwise hurt by someone within the past year? If so, by whom?: No Do you feel safe in your current relationship?: Yes Is there a partner from a previous relationship who is making you feel unsafe now?: No Are you made to feel afraid or neglected: No Advance Directives: Yes Advance Directives on File: Yes Advance Directives Date on File: 12/03/20 Do you have a plan to hurt others: No Plan Recently lost weight without trying: No Eating poorly because of decreased appetite: No Nutrition Risks: No Nutritional Risk Poor oral hygiene: No service: No Current occupational status: unemployed Meds Allergies Allergy/AdvReac Type Severity Reaction Status Date / Time No Known Allergies Allergy Verified 07/13/25 19:59 Active Medications: Current Medications Acetaminophen (Acetaminophen 325 Mg Tablet) 650 mg PO Q6H PRN PRN Reason: Pain, Mild 1-3,fever,headache Last Admin: 07/14/25 09:59 Dose: 650 mg Albuterol/Ipratropium (Albuterol/Iprat 2.5/0.5mg 3 Ml Ampul.Neb) 3 ml INHALE Q4H PRN PRN Reason: Shortness of Breath/Wheezing Allopurinol (Allopurinol 300 Mg Tablet) 300 mg PO BID [facility] Amlodipine Besylate (Amlodipine Besylate 5 Mg Tablet) 5 mg PO DAILY [facility]; Protocol Last Admin: 07/14/25 09:19 Dose: 5 mg Atorvastatin Calcium (Atorvastatin Calcium 40 Mg Tablet) 40 mg PO BEDTIME [facility] Benzonatate (Benzonatate 100 Mg Capsule) 100 mg PO TID PRN PRN Reason: Cough Calcium Carbonate (Calcium Carbonate 750 Mg Tab.Chew) 750 mg PO Q4H PRN PRN Reason: Heartburn Dextrose (Dextrose 50 % 25 Gm/50 Ml Syringe) 25 gm IVPUSH Q15M PRN; Protocol PRN Reason: per Hypoglycemia Standing Ord. Duloxetine HCl (Duloxetine Hcl 30 Mg Capsule.Dr) 30 mg PO BID [facility] Furosemide (Furosemide 40 Mg/4 Ml Vial) 40 mg IVPUSH DAILY [facility]; Protocol Glucose (Glucose Gel 15 Gm Gel..Gram.) 15 gm PO Q15M PRN; Protocol PRN Reason: per Hypoglycemia Standing Ord. Insulin Human Lispro (Insulin Lispro 100 Unit/Ml 3 Ml Vial) [facility]; Protocol Last Admin: 07/14/25 09:22 Dose: Not Given Magnesium Hydroxide (Milk Of Magnesia 30 Ml Oral.Susp) 30 ml PO DAILY PRN PRN Reason: Constipation Melatonin (Melatonin 3 Mg Tablet) 6 mg PO BEDTIME PRN PRN Reason: Insomnia Pantoprazole Sodium (Pantoprazole Sodium 40 Mg/10 Ml Vial) 40 mg IVPUSH DAILY@0630 [facility] Last Admin: 07/14/25 05:25 Dose: 40 mg Polyethylene Glycol (Polyethylene Glycol 3350 17 Gm Powd.Pack) 17 gm PO DAILY PRN PRN Reason: Constipation Sodium Chloride (0.9 % Sodium Chloride Flush 3 Ml Syringe) [facility] Last Admin: 07/14/25 09:24 Dose: 3 ml Home Medications ?Medication ?Instructions ?Recorded ?Confirmed ?Last Taken ?Type bumetanide 1 mg tablet 1 mg PO BID 07/14/25 07/14/25 07/13/25 History Physical Exam Vital Signs: Vital Signs: Last Vital Signs Temp 97.3 F 07/14/25 11:40 Pulse 58 07/14/25 11:40 Resp 22 H 07/14/25 11:40 BP 134/69 07/14/25 11:40 Pulse Ox 99 07/14/25 11:40 O2 Del Method Nasal Cannula 07/14/25 11:40 O2 Flow Rate 4 07/14/25 11:40 Oxygen Flow Rate 4 07/13/25 19:54 BMI result Body Mass Index 56.1 Const: General: cooperative, alert, awake and in distress mild and respiratory Nutritional Appearance: obese Orientation/consciousness: patient oriented x3 HEENT: Head: Yes normocephalic and Yes atraumatic Neck: Neck: Yes trachea midline, Yes supple and Yes JVD Resp: Effort & Inspection: decreased respiratory effort Auscultation: no rales and no wheezes Cardio: Jugular venous distension: JVD Rhythm: abnormal rhythm irregularly irregular Heart sounds: S1 normal heart sound present, S2 normal heart sound present, no click, no gallops and no murmurs GI: Inspection: Yes obesity Auscultation: normal bowel sounds Skin: General skin exam: no rashes or lesions noted Neuro: General: patient oriented x3 and no focal motor deficits Extrem: General: No clubbing, No cyanosis and Yes edema Objective Labs and Meds 07/14/25 07:33 07/14/25 07:33 Lab results: Laboratory Results - last 24 hr 07/13/25 07/13/25 07/13/25 20:13 20:25 21:40 WBC 10.2 RBC 2.78 L Hgb 6.4 L* D Hct 22.8 L D MCV 82.0 MCH 23.0 L MCHC 28.1 L RDW 18.6 H Plt Count 218 D MPV 9.5 Immature Gran % (Auto) 0.6 H Neut % (Auto) 78.6 H Lymph % (Auto) 13.7 L [place] % (Auto) 4.7 Eos % (Auto) 1.3 Baso % (Auto) 1.1 Lymph # (Auto) 1.4 [place] # (Auto) 0.5 Eos # (Auto) 0.1 Baso # (Auto) 0.1 Abs Immat Gran (auto) 0.06 H Absolute Neuts (auto) 8.0 Absolute Nucleated RBC 0.020 H Nucleated RBC % (auto) 0.2 VBG pH 7.45 H VBG pCO2 37 VBG pO2 103 VBG HCO3 26 VBG O2 Saturation TNP VBG Base Excess 2.7 Sodium 144 Potassium 4.6 Chloride 110 H Carbon Dioxide 24 Anion Gap 15 BUN 43 H Creatinine 1.70 H Estim Creat Clear Calc 60.2 Estimated GFR 40 POC Glucose Random Glucose 121 H Lactic Acid 2.4 H* Lactic Acid F/U @ 2Hr Calcium 9.6 Iron 14 L TIBC 354 % Saturation 4 L Unsat Iron Binding 340 Total Bilirubin 0.3 AST 25 ALT 9 Alkaline Phosphatase 74 Troponin I High Sens 30.2 NT-Pro-B Natriuret Pep Total Protein 7.0 Albumin 3.7 Vitamin B12 Folate Stool Occult Blood POSITIVE Influenza Type A (PCR) NEGATIVE Influenza Type B (PCR) NEGATIVE RSV RNA Qual (PCR) NEGATIVE SARS-CoV-2 RNA (RT-PCR) NEGATIVE Blood Type B Positive Antibody Screen NEGATIVE Crossmatch See Detail 07/13/25 07/14/25 07/14/25 23:16 07:29 07:33 WBC 8.7 RBC 2.91 L Hgb 6.8 L* Hct 24.3 L MCV 83.5 MCH 23.4 L MCHC 28.0 L RDW 17.9 H Plt Count 182 MPV 10.5 Immature Gran % (Auto) 0.3 Neut % (Auto) 71.0 Lymph % (Auto) 17.6 L [place] % (Auto) 7.5 Eos % (Auto) 2.4 Baso % (Auto) 1.2 Lymph # (Auto) 1.5 [place] # (Auto) 0.7 Eos # (Auto) 0.2 Baso # (Auto) 0.1 Abs Immat Gran (auto) 0.03 Absolute Neuts (auto) 6.2 Absolute Nucleated RBC 0.000 Nucleated RBC % (auto) 0.0 VBG pH VBG pCO2 VBG pO2 VBG HCO3 VBG O2 Saturation VBG Base Excess Sodium 146 H Potassium 4.4 Chloride 109 H Carbon Dioxide 27 Anion Gap 14 BUN 44 H Creatinine 1.69 H Estim Creat Clear Calc 60.1 Estimated GFR 40 POC Glucose 91 Random Glucose 93 Lactic Acid Lactic Acid F/U @ 2Hr 1.0 Calcium 9.0 D Iron TIBC % Saturation Unsat Iron Binding Total Bilirubin AST ALT Alkaline Phosphatase Troponin I High Sens NT-Pro-B Natriuret Pep 6111.2 H Total Protein Albumin Vitamin B12 332 Folate 13.0 Stool Occult Blood Influenza Type A (PCR) Influenza Type B (PCR) RSV RNA Qual (PCR) SARS-CoV-2 RNA (RT-PCR) Blood Type Antibody Screen Crossmatch 07/14/25 11:32 WBC RBC Hgb Hct MCV MCH MCHC RDW Plt Count MPV Immature Gran % (Auto) Neut % (Auto) Lymph % (Auto) [place] % (Auto) Eos % (Auto) Baso % (Auto) Lymph # (Auto) [place] # (Auto) Eos # (Auto) Baso # (Auto) Abs Immat Gran (auto) Absolute Neuts (auto) Absolute Nucleated RBC Nucleated RBC % (auto) VBG pH VBG pCO2 VBG pO2 VBG HCO3 VBG O2 Saturation VBG Base Excess Sodium Potassium Chloride Carbon Dioxide Anion Gap BUN Creatinine Estim Creat Clear Calc Estimated GFR POC Glucose 86 Random Glucose Lactic Acid Lactic Acid F/U @ 2Hr Calcium Iron TIBC % Saturation Unsat Iron Binding Total Bilirubin AST ALT Alkaline Phosphatase Troponin I High Sens NT-Pro-B Natriuret Pep Total Protein Albumin Vitamin B12 Folate Stool Occult Blood Influenza Type A (PCR) Influenza Type B (PCR) RSV RNA Qual (PCR) SARS-CoV-2 RNA (RT-PCR) Blood Type Antibody Screen Crossmatch Assessment and Plan (1) Decompensated heart failure: Status: Acute Decompensated heart failure with preserved ejection fraction setting of significant anemia. Agree with transfusion. Maintain hematocrit over 30. Continue IV diuresis will uptitrate Lasix to 40 mg b.i.d. as well. Strict intake and output chart needs to be pursued. Add Jardiance 10 mg to his regimen. Overall prognosis is guarded. Continue blood pressure control, currently on amlodipine therapy will need to be monitored closely. Monitor renal function as well as BNP (2) Persistent atrial fibrillation: Status: Acute Persistent atrial fibrillation rate controlled without any rate lowering medication with bradycardia at nighttime while sleep. Most likely related to obesity hypoventilation syndrome and high likelihood of underlying sleep apnea. Question can be tried on empiric CPAP therapy. Will need sleep study as outpatient in supine position. At this point time will monitor and does not require pacemaker right away. Will see. Will follow with you Procedures Date of Service Date of Service: 07/14/25
--- NOTE | 2025-07-14 12:07 | P.PNIM_ITS ---
Subjective Subjective Date of Service: 07/14/25 Interval History: Minimal response to 1 unit PRBC in the ED: Hgb 6.4-->6.8 Be transfused 2 more units of PRBCs Notified by nursing that pt's HR was dipping in the 30-40s while asleep Pt himself is asymptomatic and feeling better than at presentation Pt denies lightheadedness or dizziness No pain Previously some GERD like symptoms, though nothing right now Does reports some black stool a few days ago Review of Systems Review of Systems: Yes all other systems are reviewed and are negative Physical Exam 2 Exam: Exam: General: AOx3, no acute distress Resp: CTA bilaterally CVS: Irregularly irregular rhythm, +murmur GI: +BS, NT, no distention though obese Skin: Warm, dry Neuro: Cranial nerves II-XII grossly intact bilaterally. Motor grossly intact bilaterally Extremities: 3+ bilateral pitting edema Psych: Appropriate affect Vital Signs: Vital Signs: Last Vital Signs Temp 97.3 F 07/14/25 11:40 Pulse 58 07/14/25 11:40 Resp 22 H 07/14/25 11:40 BP 134/69 07/14/25 11:40 Pulse Ox 99 07/14/25 11:40 O2 Del Method Nasal Cannula 07/14/25 11:40 O2 Flow Rate 4 07/14/25 11:40 Oxygen Flow Rate 4 07/13/25 19:54 BMI result Body Mass Index 56.1 Objective Data Active Medications Acetaminophen (Acetaminophen 325 Mg Tablet) 650 mg PO Q6H PRN PRN Reason: Pain, Mild 1-3,fever,headache Last Admin: 07/14/25 09:59 Dose: 650 mg Documented By: JD Albuterol/Ipratropium (Albuterol/Iprat 2.5/0.5mg 3 Ml Ampul.Neb) 3 ml INHALE Q4H PRN PRN Reason: Shortness of Breath/Wheezing Allopurinol (Allopurinol 300 Mg Tablet) 300 mg PO BID [facility] Amlodipine Besylate (Amlodipine Besylate 5 Mg Tablet) 5 mg PO DAILY [facility]; Protocol Last Admin: 07/14/25 09:19 Dose: 5 mg Documented By: LONI Atorvastatin Calcium (Atorvastatin Calcium 40 Mg Tablet) 40 mg PO BEDTIME [facility] Benzonatate (Benzonatate 100 Mg Capsule) 100 mg PO TID PRN PRN Reason: Cough Calcium Carbonate (Calcium Carbonate 750 Mg Tab.Chew) 750 mg PO Q4H PRN PRN Reason: Heartburn Dextrose (Dextrose 50 % 25 Gm/50 Ml Syringe) 25 gm IVPUSH Q15M PRN; Protocol PRN Reason: per Hypoglycemia Standing Ord. Duloxetine HCl (Duloxetine Hcl 30 Mg Capsule.Dr) 30 mg PO BID [facility] Furosemide (Furosemide 40 Mg/4 Ml Vial) 40 mg IVPUSH DAILY [facility]; Protocol Glucose (Glucose Gel 15 Gm Gel..Gram.) 15 gm PO Q15M PRN; Protocol PRN Reason: per Hypoglycemia Standing Ord. Insulin Human Lispro (Insulin Lispro 100 Unit/Ml 3 Ml Vial) 0 unit SUBCUT QIDACHS [facility]; Protocol Last Admin: 07/14/25 09:22 Dose: Not Given Documented By: JD Non-Admin Reason: No Insulin Coverage Magnesium Hydroxide (Milk Of Magnesia 30 Ml Oral.Susp) 30 ml PO DAILY PRN PRN Reason: Constipation Melatonin (Melatonin 3 Mg Tablet) 6 mg PO BEDTIME PRN PRN Reason: Insomnia Pantoprazole Sodium (Pantoprazole Sodium 40 Mg/10 Ml Vial) 40 mg IVPUSH DAILY@0630 [facility] Last Admin: 07/14/25 05:25 Dose: 40 mg Documented By: KARI Polyethylene Glycol (Polyethylene Glycol 3350 17 Gm Powd.Pack) 17 gm PO DAILY PRN PRN Reason: Constipation Sodium Chloride (0.9 % Sodium Chloride Flush 3 Ml Syringe) 3 ml IVFLUSH QSHIFT [facility] Last Admin: 07/14/25 09:24 Dose: 3 ml Documented By: LYNETTEOL Labs 07/14/25 07:33 07/14/25 07:33 Labs: Laboratory Results - last 24 hr 07/13/25 07/13/25 07/13/25 20:13 20:25 21:40 MCV 82.0 MCH 23.0 L MCHC 28.1 L RDW 18.6 H Plt Count 218 D MPV 9.5 Immature Gran % (Auto) 0.6 H Neut % (Auto) 78.6 H Lymph % (Auto) 13.7 L [place] % (Auto) 4.7 Eos % (Auto) 1.3 Baso % (Auto) 1.1 Lymph # (Auto) 1.4 [place] # (Auto) 0.5 Eos # (Auto) 0.1 Baso # (Auto) 0.1 Abs Immat Gran (auto) 0.06 H Absolute Neuts (auto) 8.0 Absolute Nucleated RBC 0.020 H Nucleated RBC % (auto) 0.2 VBG pH 7.45 H VBG pCO2 37 VBG pO2 103 VBG HCO3 26 VBG O2 Saturation TNP VBG Base Excess 2.7 Anion Gap 15 Estim Creat Clear Calc 60.2 Estimated GFR 40 POC Glucose Random Glucose 121 H Lactic Acid 2.4 H* Lactic Acid F/U @ 2Hr Calcium 9.6 Iron 14 L TIBC 354 % Saturation 4 L Unsat Iron Binding 340 Total Bilirubin 0.3 AST 25 ALT 9 Alkaline Phosphatase 74 Troponin I High Sens 30.2 NT-Pro-B Natriuret Pep Total Protein 7.0 Albumin 3.7 Vitamin B12 Folate Stool Occult Blood POSITIVE Influenza Type A (PCR) NEGATIVE Influenza Type B (PCR) NEGATIVE RSV RNA Qual (PCR) NEGATIVE SARS-CoV-2 RNA (RT-PCR) NEGATIVE Blood Type B Positive Antibody Screen NEGATIVE Crossmatch See Detail 07/13/25 07/14/25 07/14/25 23:16 07:29 07:33 MCV 83.5 MCH 23.4 L MCHC 28.0 L RDW 17.9 H Plt Count 182 MPV 10.5 Immature Gran % (Auto) 0.3 Neut % (Auto) 71.0 Lymph % (Auto) 17.6 L [place] % (Auto) 7.5 Eos % (Auto) 2.4 Baso % (Auto) 1.2 Lymph # (Auto) 1.5 [place] # (Auto) 0.7 Eos # (Auto) 0.2 Baso # (Auto) 0.1 Abs Immat Gran (auto) 0.03 Absolute Neuts (auto) 6.2 Absolute Nucleated RBC 0.000 Nucleated RBC % (auto) 0.0 VBG pH VBG pCO2 VBG pO2 VBG HCO3 VBG O2 Saturation VBG Base Excess Anion Gap 14 Estim Creat Clear Calc 60.1 Estimated GFR 40 POC Glucose 91 Random Glucose 93 Lactic Acid Lactic Acid F/U @ 2Hr 1.0 Calcium 9.0 D Iron TIBC % Saturation Unsat Iron Binding Total Bilirubin AST ALT Alkaline Phosphatase Troponin I High Sens NT-Pro-B Natriuret Pep 6111.2 H Total Protein Albumin Vitamin B12 332 Folate 13.0 Stool Occult Blood Influenza Type A (PCR) Influenza Type B (PCR) RSV RNA Qual (PCR) SARS-CoV-2 RNA (RT-PCR) Blood Type Antibody Screen Crossmatch 07/14/25 11:32 MCV MCH MCHC RDW Plt Count MPV Immature Gran % (Auto) Neut % (Auto) Lymph % (Auto) [place] % (Auto) Eos % (Auto) Baso % (Auto) Lymph # (Auto) [place] # (Auto) Eos # (Auto) Baso # (Auto) Abs Immat Gran (auto) Absolute Neuts (auto) Absolute Nucleated RBC Nucleated RBC % (auto) VBG pH VBG pCO2 VBG pO2 VBG HCO3 VBG O2 Saturation VBG Base Excess Anion Gap Estim Creat Clear Calc Estimated GFR POC Glucose 86 Random Glucose Lactic Acid Lactic Acid F/U @ 2Hr Calcium Iron TIBC % Saturation Unsat Iron Binding Total Bilirubin AST ALT Alkaline Phosphatase Troponin I High Sens NT-Pro-B Natriuret Pep Total Protein Albumin Vitamin B12 Folate Stool Occult Blood Influenza Type A (PCR) Influenza Type B (PCR) RSV RNA Qual (PCR) SARS-CoV-2 RNA (RT-PCR) Blood Type Antibody Screen Crossmatch Assessment and Plan (1) Decompensated heart failure: Status: Acute (2) Acute kidney injury: Status: Acute (3) Acute on chronic anemia: Status: Acute Plan 69-year-old male with a past medical history of HTN, HLD, LALI on home oxygen, AFib-not on anticoagulation; morbid obesity, CKD, diastolic heart failure, CVA, diabetes presented to the hospital today with a chief complaint of shortness of breath. Admitted for following Acute on chronic HFpEF: Daily weights and I's and o's Telemetry Lasix 40 mg IV bid Cardiology consulted, will start Jardiance 10mg daily Will check CXR, BMP Acute on chronic Anemia likely secondary to GI bleed: Minimal response to transfusion of 1 units of PRBC in the ED: hgb 6.4-->6.8 Will transfuse 2 units PRBC more Iron studies low; folate and B12 WNL; stool heme+ GI consult IV ppi bid Clear liquid diet Mild FOREST on CKD: Baseline creatinine around 1.31.4. Creatinine on presentation is 1.7, minimal improvement to 1.69 after diuretics Monitor renal function while diuresing Bradycardia with hx of LALI Pt's HR noted to be in 30-40s while sleeping Pt only on supplemental oxygen at night Will try CPAP Cardiology following, no indication for a pacemaker at this time Monitor on telemetry LALI: Patient on supplemental oxygen Will trial CPAP as pt's HR noted to be in the 30-40s while sleeping Hypertension: Continue home amlodipine [id number] type 2 diabetes Insulin sliding scale Diabetic diet DVT prophylaxis: SCD boots Code status: Full code Quality Stroke Does the patient have a stroke diagnosis?: No VTE Prior VTE?: No VTE Risk Level:: Medical - moderate - high VTE Device Contraindication: N/A - Device Ordered VTE Drug Contraindication: Treatment Not Indicated
[2025-07-14] MEDS: Furosemide 40 MG/4 ML VIAL IVPUSH ×2 (13:42→18:26)
--- NOTE | 2025-07-14 15:44 | MHC.CM.PN ---
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 AND THE HEIGHT MAKES IT DIFFICULT THEY REPORT IF THE HAS ENOUGH NOTICE SHE CAN GET THE TIME OFF WORK AND HELP TO ENSURE PT CAN GET HERE CM WILL ADD THE C SHUTTLE INFO TO THE DC PER DISCUSSION WELL FREE DME IN [place] PT FEELS HE NEEDS A W/C Original Note: PT REPORTS HE LIVES WITH HIS AND GRANDDAUGHTER HE IS INDEPENDENT 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
[2025-07-14 16:30] LABS: Glucose, Whole Blood 83 mg/dL (60-115)
[2025-07-14 20:28] LABS: Glucose, Whole Blood 100 mg/dL (60-115)
[2025-07-15] VITALS (10 sets, daily range): BP systolic 135–169; BP diastolic 63–82; PULSE 50–57; RESP 12–22; TEMP 36.3–36.8; O2SAT 95–99
[2025-07-15 08:24] LABS: Glucose, Whole Blood 88 mg/dL (60-115)
[2025-07-15 08:53] LABS: Anion Gap 13 (12-20); Blood Urea Nitrogen 39 mg/dL (9-16); Calcium 8.7 mg/dL (8.4-10.2); Carbon Dioxide 31 mmol/L (22-29); Chloride 106 mmol/L (96-108); Creatinine Clr Calc Pharmacy 60.3; Estimated Glomerular Filt Rate 40; Potassium 3.9 mmol/L (3.3-5.1); Sodium 146 mmol/L (135-145)
[2025-07-15 08:54] LABS: NT Pro B Type Natriuretic Pept 4058.8 pg/mL (<300)
[2025-07-15] MEDS: Furosemide 40 MG/4 ML VIAL IVPUSH ×2 (09:03→18:06)
[2025-07-15] MEDS: 0.9 % Sodium Chloride Flush 3 ML SYRINGE IVFLUSH ×2 (09:03→23:17)
[2025-07-15 09:08] LABS: Procalcitonin 0.07 ng/mL
[2025-07-15 10:49] LABS: Hematocrit 28.5 % (42.0-52.0); Hemoglobin 8.2 g/dl (14.0-18.0); Mean Corpuscular HGB Conc 28.8 g/dl (31.0-36.0); Mean Corpuscular Hemoglobin 24.3 pg (27.0-33.0); Mean Corpuscular Volume 84.6 fL (80.0-98.0); NRBC Abs Auto 0.000 X10*3/uL (0.0-0.012); NRBC Pct Auto 0.0 /100WBC (0.0-0.2); Platelet Count 194 X10*3/uL (160-400); Red Blood Count 3.37 X10*6/uL (4.60-5.80); White Blood Count 9.5 X10*3/uL (4.8-10.8)
[2025-07-15 11:36] LABS: Glucose, Whole Blood 96 mg/dL (60-115)
--- NOTE | 2025-07-15 11:54 | PM.PNCARD ---
Subjective Subjective Date of Service: 07/15/25 Principal diagnosis: CHF, anemia Interval history: Patient has diuresed well overnight but remained still short of breath. Remains fluid overloaded. Renal function stable. Anemia has improved with transfusion but still persistently present. Heart rate improved overnight. Review of Systems Constitutional: Reports no additional constitutional complaints Cardiovascular: Denies chest pain, Denies rapid heart rate, Reports leg edema, Denies lightheadedness, Denies Loss of Consciousness and Reports dyspnea Respiratory: Reports no additional respiratory complaints and Reports dyspnea Gastrointestinal: Reports no additional gastrointestinal complaints Musculoskeletal: Reports no additional musculoskeletal complaints Reports system reviewed and no additional complaints, except as documented Physical Exam Vital Signs: Last Vital Signs Temp 98.3 F 07/15/25 11:31 Pulse 52 07/15/25 11:31 Resp 20 07/15/25 11:31 BP 139/82 07/15/25 11:31 Pulse Ox 97 07/15/25 11:31 O2 Del Method Room Air 07/15/25 11:31 O2 Flow Rate 4 07/15/25 07:35 Oxygen Flow Rate 4 07/13/25 19:54 BMI result Body Mass Index 56.9 Const General: cooperative, alert, awake and in distress mild and respiratory Nutritional Appearance: obese Orientation/consciousness: patient oriented x3 HEENT Head: Yes normocephalic and Yes atraumatic Neck Neck: Yes trachea midline, Yes supple and Yes JVD Resp Effort & Inspection: decreased respiratory effort Auscultation: no rales and no wheezes Cardio Jugular venous distension: JVD Rhythm: abnormal rhythm irregularly irregular Heart sounds: S1 normal heart sound present, S2 normal heart sound present, no click, no gallops and no murmurs GI Inspection: Yes obesity Auscultation: normal bowel sounds Skin General skin exam: no rashes or lesions noted Neuro General: patient oriented x3 and no focal motor deficits Extrem General: No clubbing, No cyanosis and Yes edema Objective Labs and Meds 07/15/25 10:38 07/15/25 08:13 Lab results: Laboratory Results - last 24 hr 07/13/25 07/14/25 07/14/25 21:40 16:17 20:24 WBC RBC Hgb Hct MCV MCH MCHC RDW Plt Count MPV Absolute Nucleated RBC Nucleated RBC % (auto) Hold Purple Top Sodium Potassium Chloride Carbon Dioxide Anion Gap BUN Creatinine Estim Creat Clear Calc Estimated GFR POC Glucose 83 100 Random Glucose Calcium NT-Pro-B Natriuret Pep Procalcitonin Blood Type B Positive Antibody Screen NEGATIVE Crossmatch See Detail 07/15/25 07/15/25 07/15/25 08:13 08:19 10:37 WBC RBC Hgb Hct MCV MCH MCHC RDW Plt Count MPV Absolute Nucleated RBC Nucleated RBC % (auto) Hold Purple Top SEE NOTE Sodium 146 H Potassium 3.9 Chloride 106 Carbon Dioxide 31 H Anion Gap 13 BUN 39 H Creatinine 1.70 H Estim Creat Clear Calc 60.3 Estimated GFR 40 POC Glucose 88 Random Glucose 102 Calcium 8.7 NT-Pro-B Natriuret Pep 4058.8 H Procalcitonin 0.07 Blood Type Antibody Screen Crossmatch 07/15/25 07/15/25 10:38 11:33 WBC 9.5 RBC 3.37 L Hgb 8.2 L D Hct 28.5 L MCV 84.6 MCH 24.3 L MCHC 28.8 L RDW 17.5 H Plt Count 194 MPV 9.3 L Absolute Nucleated RBC 0.000 Nucleated RBC % (auto) 0.0 Hold Purple Top Sodium Potassium Chloride Carbon Dioxide Anion Gap BUN Creatinine Estim Creat Clear Calc Estimated GFR POC Glucose 96 Random Glucose Calcium NT-Pro-B Natriuret Pep Procalcitonin Blood Type Antibody Screen Crossmatch Progress Note: A&P Assessment and plan (1) Decompensated heart failure: Status: Acute Assessment and Plan: Decompensated heart failure predominantly right heart failure syndrome but persistent shortness of breath. Patient says he only gets shortness of breath at home and uses oxygen when he has significant leg swelling. We discussed about failure as outpatient. Requires follow up in Cardiology Clinic and this is the discussed with him. He will need social care evaluation for assessment of transportation back and forth to the clinic. For now continue IV diuresis. Add spironolactone 12.5 mg to his regimen. Continue Jardiance. Strict intake and output chart needs to be pursued. Continue supportive care. Continue to transfuse to hematocrit over 30. GI consultation. (2) Persistent atrial fibrillation: Status: Acute Assessment and Plan: Persistent atrial fibrillation presents with GI bleed with significant anemia with black tarry stools. He was not on Eliquis on admission although in April admission he was on Eliquis. Unsure as to who discontinue the Eliquis as outpatient and the reason. However needs GI evaluation to further assess assisted oral anticoagulation versus Watchman device use. Currently rate is controlled without any rate lowering medications. Consider CPAP therapy at nighttime empirically. Will follow with you Time Spent With Patient Time: Total time managing care of this patient today ____ minutes. Progress Note: Quality Stroke Does the patient have a stroke diagnosis?: No Procedures Date of Service Date of Service: 07/15/25
--- NOTE | 2025-07-15 14:32 | P.PNIM_ITS ---
Subjective Subjective Date of Service: 07/15/25 Interval History: Legs feel better, less swollen Pt denies any acute medical complaints Reports feels well and at baseline Denies lightheadedness or dizziness No SOB or difficulty breathing Review of Systems Review of Systems: Yes all other systems are reviewed and are negative Physical Exam 2 Exam: Exam: General: AOx3, no acute distress Resp: CTA bilaterally though difficult to auscultate due to body habitus CVS: Irregularly irregular rhythm GI: +BS, NT, no distention though obese Skin: Warm, dry Neuro: Cranial nerves II-XII grossly intact bilaterally. Motor grossly intact bilaterally Extremities: 2+ bilateral pitting edema Psych: Appropriate affect Vital Signs: Vital Signs: Last Vital Signs Temp 97.3 F 07/15/25 13:11 Pulse 55 07/15/25 13:11 Resp 16 07/15/25 13:11 BP 142/67 H 07/15/25 13:11 Pulse Ox 97 07/15/25 11:31 O2 Del Method Room Air 07/15/25 11:31 O2 Flow Rate 4 07/15/25 07:35 Oxygen Flow Rate 4 07/13/25 19:54 BMI result Body Mass Index 56.9 Objective Data Active Medications Acetaminophen (Acetaminophen 325 Mg Tablet) 650 mg PO Q6H PRN PRN Reason: Pain, Mild 1-3,fever,headache Last Admin: 07/14/25 09:59 Dose: 650 mg Documented By: JD Albuterol/Ipratropium (Albuterol/Iprat 2.5/0.5mg 3 Ml Ampul.Neb) 3 ml INHALE Q4H PRN PRN Reason: Shortness of Breath/Wheezing Allopurinol (Allopurinol 300 Mg Tablet) 300 mg PO BID [facility] Last Admin: 07/15/25 09:04 Dose: 300 mg Documented By: LONI Amlodipine Besylate (Amlodipine Besylate 5 Mg Tablet) 5 mg PO DAILY [facility]; Protocol Last Admin: 07/15/25 09:04 Dose: 5 mg Documented By: LONI Atorvastatin Calcium (Atorvastatin Calcium 40 Mg Tablet) 40 mg PO BEDTIME [facility] Last Admin: 07/14/25 20:38 Dose: 40 mg Documented By: KARI Benzonatate (Benzonatate 100 Mg Capsule) 100 mg PO TID PRN PRN Reason: Cough Calcium Carbonate (Calcium Carbonate 750 Mg Tab.Chew) 750 mg PO Q4H PRN PRN Reason: Heartburn Dextrose (Dextrose 50 % 25 Gm/50 Ml Syringe) 25 gm IVPUSH Q15M PRN; Protocol PRN Reason: per Hypoglycemia Standing Ord. Duloxetine HCl (Duloxetine Hcl 30 Mg Capsule.Dr) 30 mg PO BID [facility] Last Admin: 07/15/25 09:04 Dose: 30 mg Documented By: LONI Empagliflozin (Empagliflozin 10 Mg Tablet) 10 mg PO DAILY [facility] Last Admin: 07/15/25 09:04 Dose: 10 mg Documented By: LONI Furosemide (Furosemide 40 Mg/4 Ml Vial) 40 mg IVPUSH BID@0900,1800 [facility]; Protocol Last Admin: 07/15/25 09:03 Dose: 40 mg Documented By: LONI Glucose (Glucose Gel 15 Gm Gel..Gram.) 15 gm PO Q15M PRN; Protocol PRN Reason: per Hypoglycemia Standing Ord. Insulin Human Lispro (Insulin Lispro 100 Unit/Ml 3 Ml Vial) [facility]; Protocol Last Admin: 07/15/25 12:05 Dose: Not Given Documented By: LONI Non-Admin Reason: No Insulin Coverage Magnesium Hydroxide (Milk Of Magnesia 30 Ml Oral.Susp) 30 ml PO DAILY PRN PRN Reason: Constipation Melatonin (Melatonin 3 Mg Tablet) 6 mg PO BEDTIME PRN PRN Reason: Insomnia Pantoprazole Sodium (Pantoprazole Sodium 40 Mg/10 Ml Vial) 40 mg IVPUSH BID@0630,1630 [facility] Last Admin: 07/15/25 05:30 Dose: 40 mg Documented By: KARI Polyethylene Glycol (Polyethylene Glycol 3350 17 Gm Powd.Pack) 17 gm PO DAILY PRN PRN Reason: Constipation Sodium Chloride (0.9 % Sodium Chloride Flush 3 Ml Syringe) 3 ml IVFLUSH QSHIFT [facility] Last Admin: 07/15/25 09:03 Dose: 3 ml Documented By: LONI Spironolactone (Spironolactone 25 Mg Tablet) 12.5 mg PO DAILY [facility]; Protocol Last Admin: 07/15/25 12:12 Dose: 12.5 mg Documented By: LONI Labs 07/15/25 10:38 07/15/25 08:13 Labs: Laboratory Results - last 24 hr 07/13/25 07/14/25 07/14/25 21:40 16:17 20:24 MCV MCH MCHC RDW Plt Count MPV Absolute Nucleated RBC Nucleated RBC % (auto) Hold Purple Top Anion Gap Estim Creat Clear Calc Estimated GFR POC Glucose 83 100 Random Glucose Calcium NT-Pro-B Natriuret Pep Procalcitonin Blood Type B Positive Antibody Screen NEGATIVE Crossmatch See Detail 07/15/25 07/15/25 07/15/25 08:13 08:19 10:37 MCV MCH MCHC RDW Plt Count MPV Absolute Nucleated RBC Nucleated RBC % (auto) Hold Purple Top SEE NOTE Anion Gap 13 Estim Creat Clear Calc 60.3 Estimated GFR 40 POC Glucose 88 Random Glucose 102 Calcium 8.7 NT-Pro-B Natriuret Pep 4058.8 H Procalcitonin 0.07 Blood Type Antibody Screen Crossmatch 07/15/25 07/15/25 10:38 11:33 MCV 84.6 MCH 24.3 L MCHC 28.8 L RDW 17.5 H Plt Count 194 MPV 9.3 L Absolute Nucleated RBC 0.000 Nucleated RBC % (auto) 0.0 Hold Purple Top Anion Gap Estim Creat Clear Calc Estimated GFR POC Glucose 96 Random Glucose Calcium NT-Pro-B Natriuret Pep Procalcitonin Blood Type Antibody Screen Crossmatch Microbiology Microbiology Results: Microbiology 07/13/25 20:13 Blood Culture - Preliminary Blood - Venous No growth after 24 hours. 07/13/25 20:13 Blood Culture - Preliminary Blood - Venous No growth after 24 hours. Assessment and Plan (1) Decompensated heart failure: Status: Acute Plan 69-year-old male with a past medical history of HTN, HLD, LALI on home oxygen, AFib-not on anticoagulation; morbid obesity, CKD, diastolic heart failure, CVA, diabetes presented to the hospital today with a chief complaint of shortness of breath. Acute on chronic HFpEF exacerbation Daily weights and I's and o's Telemetry Lasix 40 mg IV bid Cardiology consulted, will start Jardiance 10mg daily and spironolactone 12.5 mg daily Has diuresed over 6L, BNP trending down Monitor on telemetry Acute on chronic Anemia likely secondary to GI bleed Minimal response to transfusion of 1 units of PRBC in the ED: hgb 6.4-->6.8 Transfused 2 additional units PRBC on 07/15 with better response Cardiology would like additional 1 unit PRBCs to maintain hct >30 Iron studies low; folate and B12 WNL; stool heme+ GI consult IV ppi bid Clear liquid diet Question of pneumonia Patient's CXR showed bilateral lower lobe consolidations possibly secondary to atelectasis vs pneumonia No indication for antibiotics at this time: Pt without cough, fever, or leukocytosis; procalcitonin negative Mild FOREST on CKD Baseline creatinine around 1.31.4 Creatinine on presentation is 1.7, minimal improvement to 1.69 after diuretics Likely cardiorenal Monitor renal function while diuresing Bradycardia without hx of LALI Pt's HR noted to be in 30-40s while sleeping on 07/14 Improved last night to 40-50s after diuresisng Pt only on supplemental oxygen at night Had negative sleep study on 10/14/2023 Cardiology following, no indication for a pacemaker at this time Treat as above, monitor Monitor on telemetry Hypertension Continue home amlodipine Bkp-[id number] type 2 diabetes Insulin sliding scale Diabetic diet DVT prophylaxis: SCD boots Code status: Full code Pt requires continued hospitalization as pt continues to remain fluid overload and in active CHF exacerbation. He will require continued IV diuresing and close monitoring of cardiac function and labs. Quality Stroke Does the patient have a stroke diagnosis?: No VTE Prior VTE?: No VTE Risk Level:: Medical - moderate - high VTE Device Contraindication: N/A - Device Ordered VTE Drug Contraindication: Treatment Not Indicated
[2025-07-15 17:07] LABS: Glucose, Whole Blood 99 mg/dL (60-115)
[2025-07-15 20:48] LABS: Glucose, Whole Blood 90 mg/dL (60-115)
--- NOTE | 2025-07-15 22:41 | CONS_ITS ---
DATE OF SERVICE: 07/15/2025 REFERRING PHYSICIAN: SILVINA Covington REASON FOR CONSULTATION: Anemia and history of black stools. HISTORY OF PRESENT ILLNESS: The patient is a pleasant 69-year-old man who was admitted to the hospital on July 13, after presenting to the emergency room with shortness of breath and history of black stools. He was evaluated with laboratory testing showing a hematocrit of 22.8 on July 13, which was down from 29.4 on May 28. He received packed red blood cells and transfusion with improvement in his hematocrit to 28.5 this morning. He reports his shortness of breath has improved. He has had no melena since admission. Stool occult blood testing was positive. The patient denies any prior history of peptic ulcer disease. He does take ibuprofen for musculoskeletal complaints and has occasional reflux, which he treats with [id number] Tums. Since admission, he has been treated with a proton pump inhibitor. He also has history of atrial fibrillation, but has not been on anticoagulation. He has been seen in consultation by Dr. Dwyer and is scheduled to have 1 more unit of packed red blood cells for transfusion to get his hematocrit above 30. He is on diuretics for CHF. PAST MEDICAL HISTORY: 1. Hypertension. 2. Hyperlipidemia. 3. Sleep apnea. 4. Atrial fibrillation. 5. Morbid obesity. 6. Chronic kidney disease. 7. Diastolic heart failure. 8. CVA. 9. Diabetes. 10. Respiratory failure. 11. Pulmonary arterial hypertension. CURRENT MEDICATIONS: Current medication list is reviewed in the chart. ALLERGIES: THERE ARE NONE REPORTED. FAMILY HISTORY: This is reviewed with the patient and is noncontributory. SOCIAL HISTORY: There is no current tobacco, alcohol, or substance abuse. REVIEW OF SYSTEMS: SKIN: No pruritus. HEENT: Negative. CARDIOPULMONARY: He denies shortness of breath or chest pain currently. GASTROINTESTINAL: As above. GENITOURINARY: Negative. NEUROPSYCHIATRIC: Negative. PHYSICAL EXAMINATION: GENERAL: Shows a pleasant male, lying comfortably in bed. VITAL SIGNS: Reviewed in the electronic medical record and are stable. SKIN: Anicteric. HEENT: Shows no scleral icterus. NECK: Without lymphadenopathy or thyromegaly. LUNGS: Clear. HEART: Shows a regular rate and rhythm. S1, S2. No murmur. ABDOMEN: Soft without focal masses or tenderness. Bowel sounds are present. No organomegaly is noted. EXTREMITIES: Without edema. LABORATORY DATA: Reviewed as are imaging studies in the electronic medical record. ASSESSMENT: Anemia with black stools. The differential diagnosis for this includes gastritis, peptic ulcer disease, NSAID induced ulceration, upper gastrointestinal bleeding from other sources such as erosive esophagitis or malignancy. I have discussed endoscopy with him. This will be arranged for July 17 assuming he remains stable. I agree with transfusing him in maximizing his cardiac status. He is aware of risks and benefits of endoscopy and agrees to proceed. Thank you for asking me to see him. I will follow him in the hospital with you. MD ADRIANNA Elder/CASSIE / [phone]
[2025-07-16 03:22] VITALS: BP 138/80; PULSE 60; RESP 12; TEMP 36.4; O2SAT 93
[2025-07-16 06:45] LABS: Anion Gap 16 (12-20); Blood Urea Nitrogen 34 mg/dL (9-16); Calcium 8.7 mg/dL (8.4-10.2); Carbon Dioxide 29 mmol/L (22-29); Chloride 105 mmol/L (96-108); Creatinine Clr Calc Pharmacy 67.9; Estimated Glomerular Filt Rate 46; Potassium 4.0 mmol/L (3.3-5.1); Sodium 146 mmol/L (135-145)
[2025-07-16 06:47] LABS: Hematocrit 30.9 % (42.0-52.0); Hemoglobin 9.0 g/dl (14.0-18.0); Mean Corpuscular HGB Conc 29.1 g/dl (31.0-36.0); Mean Corpuscular Hemoglobin 24.6 pg (27.0-33.0); Mean Corpuscular Volume 84.4 fL (80.0-98.0); NRBC Abs Auto 0.000 X10*3/uL (0.0-0.012); NRBC Pct Auto 0.0 /100WBC (0.0-0.2); PLT CLUMP 1; Red Blood Count 3.66 X10*6/uL (4.60-5.80)
[2025-07-16 06:48] LABS: White Blood Count 9.6 X10*3/uL (4.8-10.8)
[2025-07-16 07:16] LABS: Glucose, Whole Blood 117 mg/dL (60-115)
[2025-07-16 07:46] VITALS: BP 169/77; PULSE 54; RESP 20; TEMP 36.5; O2SAT 95
[2025-07-16] MEDS: Furosemide 40 MG/4 ML VIAL IVPUSH (08:45)
[2025-07-16] MEDS: 0.9 % Sodium Chloride Flush 3 ML SYRINGE IVFLUSH ×3 (08:45→21:02)
--- NOTE | 2025-07-16 10:43 | MHC.SHP ---
Pre-Procedural Eval Section A - 24 Hr Update-Section A only Date of Service: 07/16/25 The patient is an INPATIENT: Yes Changes since office visit: No Cold of Flu in the past 2 weeks, No New Medical Problems, No Changes in Medication and No Patient answered all questions The patient has been examined within 24 hours of the surgical procedure. The History & Physical has been completed within 30 days and I have reviewed it.: Yes Section B - Complete if H&P > 30 days Chief Complaint: chf Allergies: Allergies Allergy/AdvReac Type Severity Reaction Status Date / Time No Known Allergies Allergy Verified 07/13/25 19:59 Plan I have reviewed the history and physical and performed a pertinent physical examination on my patient. No changes have occurred unless specified. Time Spent With Patient Time: Total time managing care of this patient today ____ minutes.
--- NOTE | 2025-07-16 10:44 | P.PNGI_ITS ---
Subjective Subjective Date of Service: 07/16/25 Interval History: no bleeding Critical Care Time (minutes): 0 Physical Exam 2 Vital Signs: Vital Signs: Last Vital Signs Temp 97.7 F 07/16/25 07:46 Pulse 54 07/16/25 07:46 Resp 20 07/16/25 07:46 BP 169/77 H 07/16/25 07:46 Pulse Ox 95 07/16/25 07:46 O2 Del Method Nasal Cannula 07/16/25 07:46 O2 Flow Rate 4 07/16/25 07:46 Oxygen Flow Rate 4 07/13/25 19:54 BMI result Body Mass Index 56.9 GI: Other: abdomen is soft and nontender Objective Data Labs 07/16/25 06:20 07/16/25 06:20 Labs: Laboratory Results - last 24 hr 07/13/25 07/13/25 07/15/25 20:13 21:40 10:37 WBC RBC Hgb Hct MCV MCH MCHC RDW Plt Count MPV Absolute Nucleated RBC Nucleated RBC % (auto) Smear Path Review SEE NOTE Hold Purple Top SEE NOTE Sodium Potassium Chloride Carbon Dioxide Anion Gap BUN Creatinine Estim Creat Clear Calc Estimated GFR POC Glucose Random Glucose Calcium Blood Type B Positive Antibody Screen NEGATIVE Crossmatch See Detail 07/15/25 07/15/25 07/15/25 10:38 11:33 17:03 WBC 9.5 RBC 3.37 L Hgb 8.2 L D Hct 28.5 L MCV 84.6 MCH 24.3 L MCHC 28.8 L RDW 17.5 H Plt Count 194 MPV 9.3 L Absolute Nucleated RBC 0.000 Nucleated RBC % (auto) 0.0 Smear Path Review Hold Purple Top Sodium Potassium Chloride Carbon Dioxide Anion Gap BUN Creatinine Estim Creat Clear Calc Estimated GFR POC Glucose 96 99 Random Glucose Calcium Blood Type Antibody Screen Crossmatch 07/15/25 07/16/25 07/16/25 20:44 06:20 06:56 WBC 9.6 RBC 3.66 L Hgb 9.0 L Hct 30.9 L MCV 84.4 MCH 24.6 L MCHC 29.1 L RDW 17.2 H Plt Count TNP MPV TNP Absolute Nucleated RBC 0.000 Nucleated RBC % (auto) 0.0 Smear Path Review Hold Purple Top Sodium 146 H Potassium 4.0 Chloride 105 Carbon Dioxide 29 Anion Gap 16 BUN 34 H Creatinine 1.51 H Estim Creat Clear Calc 67.9 Estimated GFR 46 POC Glucose 90 117 H Random Glucose 104 Calcium 8.7 Blood Type Antibody Screen Crossmatch Microbiology Microbiology Results: Microbiology 07/13/25 20:13 Blood - Venous Blood Culture - Preliminary No growth after 48 hours. 07/13/25 20:13 Blood - Venous Blood Culture - Preliminary No growth after 48 hours. Procedures Date of Service Date of Service: 07/16/25 Progress Note: A&P Assessment and plan (1) Melena: Status: Acute Assessment and Plan: Hct is stable no bleeding EGD when cleared by cardiology Time Spent With Patient Time: Total time managing care of this patient today ____ minutes. Quality Stroke Does the patient have a stroke diagnosis?: No VTE Prior VTE?: No VTE Risk Level:: Medical - moderate - high VTE Device Contraindication: N/A - Device Ordered VTE Drug Contraindication: Treatment Not Indicated
--- NOTE | 2025-07-16 10:57 | HO.PM.IMPN ---
Subjective Subjective Date of Service: 07/16/25 Interval History: Patient lying comfortably in bed. No palpitations, chest pain, dizziness, diaphoresis. Endorses that he feels better as compared to yesterday. No acute complaints at this time. Pending gastroenterology intervention with EGD/colonoscopy for GI bleed Review of Systems Review of Systems: Yes all other systems are reviewed and are negative Physical Exam Exam: Exam: General: A&O x3, oriented to time place person and situation, comfortable, no pain. MO habitus Cardiac: S1, S2 auscultated with no S3/4, no MRG. Well perfused. Respiratory: Normal breath sounds auscultated throughout all lung zones, without wheezing, rales. Normal rate. On 4 L NC GI/ : No abdominal pain on palpation, no masses or distentions. MSK: Normal ambulation without pain at bony prominences or musculature. Bilateral lower extremity edema 2+ to the mid spencer, with evidence of lipodermatosclerosis Neurological: Normal neurological examination on overview, without obvious CN II-XII abnormalities. Vital Signs: Vital Signs: Last Vital Signs Temp 97.7 F 07/16/25 07:46 Pulse 54 07/16/25 07:46 Resp 20 07/16/25 07:46 BP 169/77 H 07/16/25 07:46 Pulse Ox 95 07/16/25 07:46 O2 Del Method Nasal Cannula 07/16/25 07:46 O2 Flow Rate 4 07/16/25 07:46 Oxygen Flow Rate 4 07/13/25 19:54 BMI result Body Mass Index 56.9 Objective Data Active Medications Acetaminophen (Acetaminophen 325 Mg Tablet) 650 mg PO Q6H PRN PRN Reason: Pain, Mild 1-3,fever,headache Last Admin: 07/16/25 09:06 Dose: 650 mg Documented By: GOLD Albuterol/Ipratropium (Albuterol/Iprat 2.5/0.5mg 3 Ml Ampul.Neb) 3 ml INHALE Q4H PRN PRN Reason: Shortness of Breath/Wheezing Allopurinol (Allopurinol 300 Mg Tablet) 300 mg PO BID [facility] Last Admin: 07/16/25 08:43 Dose: 300 mg Documented By: GOLD Amlodipine Besylate (Amlodipine Besylate 5 Mg Tablet) 5 mg PO DAILY [facility]; Protocol Last Admin: 07/16/25 08:44 Dose: 5 mg Documented By: GOLD Atorvastatin Calcium (Atorvastatin Calcium 40 Mg Tablet) 40 mg PO BEDTIME [facility] Last Admin: 07/15/25 20:35 Dose: 40 mg Documented By: KARI Benzonatate (Benzonatate 100 Mg Capsule) 100 mg PO TID PRN PRN Reason: Cough Calcium Carbonate (Calcium Carbonate 750 Mg Tab.Chew) 750 mg PO Q4H PRN PRN Reason: Heartburn Dextrose (Dextrose 50 % 25 Gm/50 Ml Syringe) 25 gm IVPUSH Q15M PRN; Protocol PRN Reason: per Hypoglycemia Standing Ord. Duloxetine HCl (Duloxetine Hcl 30 Mg Capsule.Dr) 30 mg PO BID [facility] Last Admin: 07/16/25 08:44 Dose: 30 mg Documented By: GOLD Empagliflozin (Empagliflozin 10 Mg Tablet) 10 mg PO DAILY [facility] On Hold: 07/16/25 10:41 Last Admin: 07/16/25 08:43 Dose: 10 mg Documented By: GOLD Furosemide (Furosemide 40 Mg/4 Ml Vial) 40 mg IVPUSH BID@0900,1800 [facility]; Protocol On Hold: 07/16/25 09:23 Resume: 07/17/25 06:00 Last Admin: 07/16/25 08:45 Dose: 40 mg Documented By: GOLD Glucose (Glucose Gel 15 Gm Gel..Gram.) 15 gm PO Q15M PRN; Protocol PRN Reason: per Hypoglycemia Standing Ord. Insulin Human Lispro (Insulin Lispro 100 Unit/Ml 3 Ml Vial) 0 unit SUBCUT QIDACHS [facility]; Protocol Last Admin: 07/16/25 07:35 Dose: Not Given Documented By: GOLD Non-Admin Reason: No Insulin Coverage Magnesium Hydroxide (Milk Of Magnesia 30 Ml Oral.Susp) 30 ml PO DAILY PRN PRN Reason: Constipation Melatonin (Melatonin 3 Mg Tablet) 6 mg PO BEDTIME PRN PRN Reason: Insomnia Pantoprazole Sodium (Pantoprazole Sodium 40 Mg/10 Ml Vial) 40 mg IVPUSH BID@0630,1630 [facility] Last Admin: 07/16/25 05:22 Dose: 40 mg Documented By: KARI Polyethylene Glycol (Polyethylene Glycol 3350 17 Gm Powd.Pack) 17 gm PO DAILY PRN PRN Reason: Constipation Sodium Chloride (0.9 % Sodium Chloride Flush 3 Ml Syringe) 3 ml IVFLUSH QSHIFT [facility] Last Admin: 07/16/25 08:45 Dose: 3 ml Documented By: GOLD Spironolactone (Spironolactone 25 Mg Tablet) 12.5 mg PO DAILY [facility]; Protocol Last Admin: 07/16/25 08:43 Dose: 12.5 mg Documented By: GOLD Labs 07/16/25 06:20 07/16/25 06:20 Labs: Laboratory Results - last 24 hr 07/13/25 07/13/25 07/15/25 20:13 21:40 10:38 MCV 84.6 MCH 24.3 L MCHC 28.8 L RDW 17.5 H Plt Count 194 MPV 9.3 L Absolute Nucleated RBC 0.000 Nucleated RBC % (auto) 0.0 Smear Path Review SEE NOTE Anion Gap Estim Creat Clear Calc Estimated GFR POC Glucose Random Glucose Calcium Blood Type B Positive Antibody Screen NEGATIVE Crossmatch See Detail 07/15/25 07/15/25 07/15/25 11:33 17:03 20:44 MCV MCH MCHC RDW Plt Count MPV Absolute Nucleated RBC Nucleated RBC % (auto) Smear Path Review Anion Gap Estim Creat Clear Calc Estimated GFR POC Glucose 96 99 90 Random Glucose Calcium Blood Type Antibody Screen Crossmatch 07/16/25 07/16/25 06:20 06:56 MCV 84.4 MCH 24.6 L MCHC 29.1 L RDW 17.2 H Plt Count TNP MPV TNP Absolute Nucleated RBC 0.000 Nucleated RBC % (auto) 0.0 Smear Path Review Anion Gap 16 Estim Creat Clear Calc 67.9 Estimated GFR 46 POC Glucose 117 H Random Glucose 104 Calcium 8.7 Blood Type Antibody Screen Crossmatch Microbiology Microbiology Results: Microbiology 07/13/25 20:13 Blood Culture - Preliminary Blood - Venous No growth after 48 hours. 07/13/25 20:13 Blood Culture - Preliminary Blood - Venous No growth after 48 hours. Assessment and Plan (1) Diastolic heart failure: Status: Acute (2) Right heart failure: Status: Acute (3) Decompensated heart failure: Status: Acute (4) Bradycardia: Status: Acute (5) Persistent atrial fibrillation: Status: Acute (6) Hyperlipidemia: Status: Acute (7) Melena: Status: Acute (8) Acute kidney injury: Status: Acute (9) Hypomagnesemia: Status: Acute (10) Acute on chronic anemia: Status: Acute (11) LALI (obstructive sleep apnea): Status: Acute Plan 69-year-old male with a past medical history of HTN, HLD, LALI on home oxygen, AFib-not on anticoagulation; morbid obesity, CKD, diastolic heart failure, CVA, diabetes presented to the hospital today with a chief complaint of shortness of breath. Acute on chronic HFpEF exacerbation Daily weights and I's and o's Telemetry Lasix 40 mg IV bid (afternoon dose held today) Cardiology consulted, will start Jardiance 10mg daily and spironolactone 12.5 mg daily Has diuresed over 6L, BNP trending down Monitor on telemetry Acute on chronic Anemia likely secondary to GI bleed Minimal response to transfusion of 1 units of PRBC in the ED: hgb 6.4-->6.8 Transfused 2 additional units PRBC on 07/15 with better response Cardiology would like additional 1 unit PRBCs to maintain hct >30 Iron studies low; folate and B12 WNL; stool heme+ GI consult - plan for EGD/colonoscopy Wednesday IV ppi bid Clear liquid diet Mild FOREST on CKD Baseline creatinine around 1.31 Creatinine on presentation is 1.7. Improved to baseline post diuresis. Likely cardiorenal Monitor renal function while diuresing Bradycardia Hx of LALI Pt's HR noted to be in 30-40s while sleeping on 07/14 Improved last night to 40-50s after diuresisng Pt only on supplemental oxygen at night Had negative sleep study on 10/14/2023 Cardiology following, no indication for a pacemaker at this time Treat as above, monitor Monitor on telemetry Hypertension Continue home amlodipine Npt-[id number] type 2 diabetes Insulin sliding scale Diabetic diet QUALITY METRICS - VTE: Medical contraindicated-SCDs - CODE STATUS: Full code - DIET: Diabetic diet Quality Stroke Does the patient have a stroke diagnosis?: No VTE Prior VTE?: No VTE Risk Level:: Medical - moderate - high VTE Device Contraindication: N/A - Device Ordered VTE Drug Contraindication: Treatment Not Indicated
[2025-07-16 11:35] LABS: Glucose, Whole Blood 124 mg/dL (60-115)
[2025-07-16 11:39] VITALS: BP 140/76; PULSE 76; RESP 20; TEMP 36.7; O2SAT 92
--- NOTE | 2025-07-16 12:58 | PM.PNCARD ---
Subjective Subjective Date of Service: 07/16/25 Principal diagnosis: CHF, anemia Interval history: Seen examined at bedside. Short of breath. Significantly volume overloaded. Morbidly obese. Physical Exam Vital Signs: Last Vital Signs Temp 98.0 F 07/16/25 11:39 Pulse 76 07/16/25 11:39 Resp 20 07/16/25 11:39 BP 140/76 H 07/16/25 11:39 Pulse Ox 92 07/16/25 11:39 O2 Del Method Nasal Cannula 07/16/25 11:39 O2 Flow Rate 4 07/16/25 11:39 Oxygen Flow Rate 4 07/13/25 19:54 BMI result Body Mass Index 56.9 GENERAL APPEARANCE: Morbidly obese. On supplemental oxygen. NECK: no carotid bruit, + jugular venous distention. SKIN: no suspicious lesions, warm and dry. HEART: no murmurs, regular rate and rhythm. LUNGS: clear to auscultation bilaterally. ABDOMEN: soft, nontender. EXTREMITIES: + + edema. PERIPHERAL PULSES: equal. NEUROLOGIC: No gross deficits, AAO X 3 Objective Labs and Meds 07/16/25 06:20 07/16/25 06:20 Lab results: Laboratory Results - last 24 hr 07/13/25 07/13/25 07/15/25 20:13 21:40 17:03 WBC RBC Hgb Hct MCV MCH MCHC RDW Plt Count MPV Absolute Nucleated RBC Nucleated RBC % (auto) Smear Path Review SEE NOTE Sodium Potassium Chloride Carbon Dioxide Anion Gap BUN Creatinine Estim Creat Clear Calc Estimated GFR POC Glucose 99 Random Glucose Calcium Crossmatch See Detail 07/15/25 07/16/25 07/16/25 20:44 06:20 06:56 WBC 9.6 RBC 3.66 L Hgb 9.0 L Hct 30.9 L MCV 84.4 MCH 24.6 L MCHC 29.1 L RDW 17.2 H Plt Count TNP MPV TNP Absolute Nucleated RBC 0.000 Nucleated RBC % (auto) 0.0 Smear Path Review Sodium 146 H Potassium 4.0 Chloride 105 Carbon Dioxide 29 Anion Gap 16 BUN 34 H Creatinine 1.51 H Estim Creat Clear Calc 67.9 Estimated GFR 46 POC Glucose 90 117 H Random Glucose 104 Calcium 8.7 Crossmatch 07/16/25 11:25 WBC RBC Hgb Hct MCV MCH MCHC RDW Plt Count MPV Absolute Nucleated RBC Nucleated RBC % (auto) Smear Path Review Sodium Potassium Chloride Carbon Dioxide Anion Gap BUN Creatinine Estim Creat Clear Calc Estimated GFR POC Glucose 124 H Random Glucose Calcium Crossmatch Progress Note: A&P Assessment and plan (1) Diastolic heart failure: Status: Acute (2) Right heart failure: Status: Acute Plan [age] year gentleman presenting with congestive heart failure right more than left-sided failure. Continues to be significantly volume overloaded by examination. He is-3 L in the last 24 hours. I think we continue IV diuretics at this point. Can titrate the spironolactone to 25 mg daily. Continue Jardiance 10 mg daily. Thank you for allowing me to participate in the care of your patient. Please feel free to contact me if you have any questions. Time Spent With Patient Time: Total time managing care of this patient today ____ minutes. Progress Note: Quality Stroke Does the patient have a stroke diagnosis?: No Procedures Date of Service Date of Service: 07/16/25
[2025-07-16 16:00] VITALS: BP 143/65; PULSE 62; RESP 20; TEMP 36.3; O2SAT 95
[2025-07-16 16:10] LABS: Glucose, Whole Blood 131 mg/dL (60-115)
[2025-07-16 19:32] VITALS: BP 158/76; PULSE 54; RESP 20; TEMP 36.6; O2SAT 94
[2025-07-16 20:06] LABS: Glucose, Whole Blood 112 mg/dL (60-115)
[2025-07-16 23:32] VITALS: BP 153/77; PULSE 56; RESP 18; TEMP 37.2; O2SAT 94
[2025-07-17 03:27] VITALS: BP 160/75; PULSE 66; RESP 20; TEMP 36.7; O2SAT 96
[2025-07-17 07:00] LABS: Glucose, Whole Blood 91 mg/dL (60-115)
[2025-07-17 07:06] VITALS: BP 150/70; PULSE 63; RESP 20; TEMP 36.1; O2SAT 96
--- NOTE | 2025-07-17 08:31 | HO.ANESPROP2 ---
HPI - Anesthesia Eval Consult details Narrative: 69 yr old male for upper endoscopy with Gold probe *Cancelled by anesthesia BMI 56 Had respiratory illness 2-3 weeks ago which he thought had resolved. On 3 liters O2 at home, uses walker or cane, denies CP, has SOB at baseline, he does not believe SOB is worse. Acute anemia on admission with Hgb 6.4, transfused 4 units PRBCs; stable at Hgb/Hct 9.0/30.9 07/16/25 Right sided heart failure: seen by cardiology 07/16 who noted pt continues to be SOB, volume overloaded, on 3 liters of O2, sat 96% today Mild aortic stenosis: valve area 1.70, mean gradient 13 PMFSH Active Problems Active Problems: All Active Problems Acute on chronic anemia (Acute) Persistent atrial fibrillation (Acute) Decompensated heart failure (Acute) Anemia (Acute) Melena (Acute) Acute kidney injury (Acute) Screening PSA (prostate specific antigen) (Acute) Bradycardia (Acute) Respiratory syncytial virus (RSV) (Acute) Pneumonia (Acute) Influenza (Acute) Pneumonia (Acute) Syncope (Acute) Influenza (Acute) Right heart failure (Acute) Anxiety (Acute) Systolic murmur (Acute) Hypomagnesemia (Acute) LALI (obstructive sleep apnea) (Acute) Hyperlipidemia (Acute) Diastolic heart failure (Acute) Cerebrovascular accident (CVA) (Acute) Past Medical History Medical History (Updated 08/02/25 @ 00:02 by Barrera Girard) Requires continuous at home supplemental oxygen Anemia Systolic murmur Persistent atrial fibrillation Respiratory failure Congestive heart failure Screening PSA (prostate specific antigen) Morbid obesity Elevated serum creatinine Right heart failure Leg pain FOREST (acute kidney injury) Leukocytosis LALI (obstructive sleep apnea) Hyperlipidemia HTN (hypertension) Diastolic heart failure Newly diagnosed diabetes Acute gout of left foot Chronic fatigue Pulmonary arterial hypertension Cerebrovascular accident (CVA) Family History Family History Father Blood clot in vein Mother Cancer Surgical History Surgical History Hx of shoulder surgery No pertinent past surgical history Social History Social History Household Members: Spouse and Children Household Members Other:: pt lives with grand daughter Housing: Apartment Do you presently have visiting nurse or other home services: No Alcohol intake: former Patient Tobacco Use Status: Never used Tobacco Years Smoked: nonsmoker e-Cigarette/Vaping Use: Never Used Second Hand Smoke Exposure: No Substance Use Type: Unknown Advance Directives Date on File: 12/03/20 service: No Current occupational status: unemployed Meds Allergies Allergy/AdvReac Type Severity Reaction Status Date / Time No Known Allergies Allergy Verified 07/13/25 19:59 Active Medications: Current Medications Acetaminophen (Acetaminophen 325 Mg Tablet) 650 mg PO Q6H PRN PRN Reason: Pain, Mild 1-3,fever,headache Last Admin: 07/16/25 09:06 Dose: 650 mg Albuterol/Ipratropium (Albuterol/Iprat 2.5/0.5mg 3 Ml Ampul.Neb) 3 ml INHALE Q4H PRN PRN Reason: Shortness of Breath/Wheezing Allopurinol (Allopurinol 300 Mg Tablet) 300 mg PO BID [facility] Last Admin: 07/16/25 21:02 Dose: 300 mg Amlodipine Besylate (Amlodipine Besylate 5 Mg Tablet) 5 mg PO DAILY [facility]; Protocol Last Admin: 07/16/25 08:44 Dose: 5 mg Atorvastatin Calcium (Atorvastatin Calcium 40 Mg Tablet) 40 mg PO BEDTIME CARLOS Last Admin: 07/16/25 21:02 Dose: 40 mg Benzonatate (Benzonatate 100 Mg Capsule) 100 mg PO TID PRN PRN Reason: Cough Bismuth Subsalicylate (Bismuth Subsalicylate 262 Mg Tablet) 262 mg PO QID PRN PRN Reason: Heartburn Calcium Carbonate (Calcium Carbonate 750 Mg Tab.Chew) 750 mg PO Q4H PRN PRN Reason: Heartburn Last Admin: 07/16/25 18:03 Dose: 750 mg Dextrose (Dextrose 50 % 25 Gm/50 Ml Syringe) 25 gm IVPUSH Q15M PRN; Protocol PRN Reason: per Hypoglycemia Standing Ord. Duloxetine HCl (Duloxetine Hcl 30 Mg Capsule.Dr) 30 mg PO BID [facility] Last Admin: 07/16/25 21:02 Dose: 30 mg Empagliflozin (Empagliflozin 10 Mg Tablet) 10 mg PO DAILY [facility]LOS On Hold: 07/16/25 10:41 Last Admin: 07/16/25 08:43 Dose: 10 mg Furosemide (Furosemide 40 Mg/4 Ml Vial) 40 mg IVPUSH BID@0900,1800 [facility]; Protocol Last Admin: 07/16/25 08:45 Dose: 40 mg Glucose (Glucose Gel 15 Gm Gel..Gram.) 15 gm PO Q15M PRN; Protocol PRN Reason: per Hypoglycemia Standing Ord. Insulin Human Lispro (Insulin Lispro 100 Unit/Ml 3 Ml Vial) 0 unit SUBCUT QIDACHS [facility]; Protocol Last Admin: 07/17/25 07:10 Dose: Not Given Magnesium Hydroxide (Milk Of Magnesia 30 Ml Oral.Susp) 30 ml PO DAILY PRN PRN Reason: Constipation Melatonin (Melatonin 3 Mg Tablet) 6 mg PO BEDTIME PRN PRN Reason: Insomnia Pantoprazole Sodium (Pantoprazole Sodium 40 Mg/10 Ml Vial) 40 mg IVPUSH BID@0630,1630 [facility] Last Admin: 07/17/25 05:40 Dose: 40 mg Polyethylene Glycol (Polyethylene Glycol 3350 17 Gm Powd.Pack) 17 gm PO DAILY PRN PRN Reason: Constipation Sodium Chloride (0.9 % Sodium Chloride Flush 3 Ml Syringe) 3 ml IVFLUSH QSHIFT [facility] Last Admin: 07/16/25 21:02 Dose: 3 ml Spironolactone (Spironolactone 25 Mg Tablet) 12.5 mg PO DAILY [facility]; Protocol Last Admin: 07/16/25 08:43 Dose: 12.5 mg Exam Height,Weight and Vital Signs: Height 5 ft 7 in Weight 164.8 kg Last Vital Signs Temp 97.0 F 07/17/25 07:06 Pulse 63 07/17/25 07:06 Resp 20 07/17/25 07:06 BP 150/70 H 07/17/25 07:06 Pulse Ox 96 07/17/25 07:06 O2 Del Method Nasal Cannula 07/17/25 07:06 O2 Flow Rate 4 07/17/25 07:06 Oxygen Flow Rate 4 07/13/25 19:54 Pertinent Lab Results Pertinent Lab Results: Laboratory Tests 07/13/25 07/13/25 07/13/25 20:13 20:25 21:40 WBC 10.2 RBC 2.78 L Hgb 6.4 L* D Hct 22.8 L D MCV 82.0 MCH 23.0 L MCHC 28.1 L RDW 18.6 H Plt Count 218 D MPV 9.5 Immature Gran % (Auto) 0.6 H Neut % (Auto) 78.6 H Lymph % (Auto) 13.7 L [place] % (Auto) 4.7 Eos % (Auto) 1.3 Baso % (Auto) 1.1 Lymph # (Auto) 1.4 [place] # (Auto) 0.5 Eos # (Auto) 0.1 Baso # (Auto) 0.1 Abs Immat Gran (auto) 0.06 H Absolute Neuts (auto) 8.0 Absolute Nucleated RBC 0.020 H Nucleated RBC % (auto) 0.2 Smear Path Review SEE NOTE Hold Purple Top VBG pH 7.45 H VBG pCO2 37 VBG pO2 103 VBG HCO3 26 VBG O2 Saturation TNP VBG Base Excess 2.7 Sodium 144 Potassium 4.6 Chloride 110 H Carbon Dioxide 24 Anion Gap 15 BUN 43 H Creatinine 1.70 H Estim Creat Clear Calc 60.2 Estimated GFR 40 POC Glucose Random Glucose 121 H Lactic Acid 2.4 H* Lactic Acid F/U @ 2Hr Calcium 9.6 Iron 14 L TIBC 354 % Saturation 4 L Unsat Iron Binding 340 Total Bilirubin 0.3 AST 25 ALT 9 Alkaline Phosphatase 74 Troponin I High Sens 30.2 NT-Pro-B Natriuret Pep Total Protein 7.0 Albumin 3.7 Vitamin B12 Folate Procalcitonin Stool Occult Blood POSITIVE Influenza Type A (PCR) NEGATIVE Influenza Type B (PCR) NEGATIVE RSV RNA Qual (PCR) NEGATIVE SARS-CoV-2 RNA (RT-PCR) NEGATIVE Blood Type B Positive Antibody Screen NEGATIVE Crossmatch See Detail 07/13/25 07/14/25 07/14/25 23:16 07:29 07:33 WBC 8.7 RBC 2.91 L Hgb 6.8 L* Hct 24.3 L MCV 83.5 MCH 23.4 L MCHC 28.0 L RDW 17.9 H Plt Count 182 MPV 10.5 Immature Gran % (Auto) 0.3 Neut % (Auto) 71.0 Lymph % (Auto) 17.6 L [place] % (Auto) 7.5 Eos % (Auto) 2.4 Baso % (Auto) 1.2 Lymph # (Auto) 1.5 [place] # (Auto) 0.7 Eos # (Auto) 0.2 Baso # (Auto) 0.1 Abs Immat Gran (auto) 0.03 Absolute Neuts (auto) 6.2 Absolute Nucleated RBC 0.000 Nucleated RBC % (auto) 0.0 Smear Path Review Hold Purple Top VBG pH VBG pCO2 VBG pO2 VBG HCO3 VBG O2 Saturation VBG Base Excess Sodium 146 H Potassium 4.4 Chloride 109 H Carbon Dioxide 27 Anion Gap 14 BUN 44 H Creatinine 1.69 H Estim Creat Clear Calc 60.1 Estimated GFR 40 POC Glucose 91 Random Glucose 93 Lactic Acid Lactic Acid F/U @ 2Hr 1.0 Calcium 9.0 D Iron TIBC % Saturation Unsat Iron Binding Total Bilirubin AST ALT Alkaline Phosphatase Troponin I High Sens NT-Pro-B Natriuret Pep 6111.2 H Total Protein Albumin Vitamin B12 332 Folate 13.0 Procalcitonin Stool Occult Blood Influenza Type A (PCR) Influenza Type B (PCR) RSV RNA Qual (PCR) SARS-CoV-2 RNA (RT-PCR) Blood Type Antibody Screen Crossmatch 07/14/25 07/14/25 07/14/25 11:32 16:17 20:24 WBC RBC Hgb Hct MCV MCH MCHC RDW Plt Count MPV Immature Gran % (Auto) Neut % (Auto) Lymph % (Auto) [place] % (Auto) Eos % (Auto) Baso % (Auto) Lymph # (Auto) [place] # (Auto) Eos # (Auto) Baso # (Auto) Abs Immat Gran (auto) Absolute Neuts (auto) Absolute Nucleated RBC Nucleated RBC % (auto) Smear Path Review Hold Purple Top VBG pH VBG pCO2 VBG pO2 VBG HCO3 VBG O2 Saturation VBG Base Excess Sodium Potassium Chloride Carbon Dioxide Anion Gap BUN Creatinine Estim Creat Clear Calc Estimated GFR POC Glucose 86 83 100 Random Glucose Lactic Acid Lactic Acid F/U @ 2Hr Calcium Iron TIBC % Saturation Unsat Iron Binding Total Bilirubin AST ALT Alkaline Phosphatase Troponin I High Sens NT-Pro-B Natriuret Pep Total Protein Albumin Vitamin B12 Folate Procalcitonin Stool Occult Blood Influenza Type A (PCR) Influenza Type B (PCR) RSV RNA Qual (PCR) SARS-CoV-2 RNA (RT-PCR) Blood Type Antibody Screen Crossmatch 07/15/25 07/15/25 07/15/25 08:13 08:19 10:37 WBC RBC Hgb Hct MCV MCH MCHC RDW Plt Count MPV Immature Gran % (Auto) Neut % (Auto) Lymph % (Auto) [place] % (Auto) Eos % (Auto) Baso % (Auto) Lymph # (Auto) [place] # (Auto) Eos # (Auto) Baso # (Auto) Abs Immat Gran (auto) Absolute Neuts (auto) Absolute Nucleated RBC Nucleated RBC % (auto) Smear Path Review Hold Purple Top SEE NOTE VBG pH VBG pCO2 VBG pO2 VBG HCO3 VBG O2 Saturation VBG Base Excess Sodium 146 H Potassium 3.9 Chloride 106 Carbon Dioxide 31 H Anion Gap 13 BUN 39 H Creatinine 1.70 H Estim Creat Clear Calc 60.3 Estimated GFR 40 POC Glucose 88 Random Glucose 102 Lactic Acid Lactic Acid F/U @ 2Hr Calcium 8.7 Iron TIBC % Saturation Unsat Iron Binding Total Bilirubin AST ALT Alkaline Phosphatase Troponin I High Sens NT-Pro-B Natriuret Pep 4058.8 H Total Protein Albumin Vitamin B12 Folate Procalcitonin 0.07 Stool Occult Blood Influenza Type A (PCR) Influenza Type B (PCR) RSV RNA Qual (PCR) SARS-CoV-2 RNA (RT-PCR) Blood Type Antibody Screen Crossmatch 07/15/25 07/15/25 07/15/25 10:38 11:33 17:03 WBC 9.5 RBC 3.37 L Hgb 8.2 L D Hct 28.5 L MCV 84.6 MCH 24.3 L MCHC 28.8 L RDW 17.5 H Plt Count 194 MPV 9.3 L Immature Gran % (Auto) Neut % (Auto) Lymph % (Auto) [place] % (Auto) Eos % (Auto) Baso % (Auto) Lymph # (Auto) [place] # (Auto) Eos # (Auto) Baso # (Auto) Abs Immat Gran (auto) Absolute Neuts (auto) Absolute Nucleated RBC 0.000 Nucleated RBC % (auto) 0.0 Smear Path Review Hold Purple Top VBG pH VBG pCO2 VBG pO2 VBG HCO3 VBG O2 Saturation VBG Base Excess Sodium Potassium Chloride Carbon Dioxide Anion Gap BUN Creatinine Estim Creat Clear Calc Estimated GFR POC Glucose 96 99 Random Glucose Lactic Acid Lactic Acid F/U @ 2Hr Calcium Iron TIBC % Saturation Unsat Iron Binding Total Bilirubin AST ALT Alkaline Phosphatase Troponin I High Sens NT-Pro-B Natriuret Pep Total Protein Albumin Vitamin B12 Folate Procalcitonin Stool Occult Blood Influenza Type A (PCR) Influenza Type B (PCR) RSV RNA Qual (PCR) SARS-CoV-2 RNA (RT-PCR) Blood Type Antibody Screen Crossmatch 07/15/25 07/16/25 07/16/25 20:44 06:20 06:56 WBC 9.6 RBC 3.66 L Hgb 9.0 L Hct 30.9 L MCV 84.4 MCH 24.6 L MCHC 29.1 L RDW 17.2 H Plt Count TNP MPV TNP Immature Gran % (Auto) Neut % (Auto) Lymph % (Auto) [place] % (Auto) Eos % (Auto) Baso % (Auto) Lymph # (Auto) [place] # (Auto) Eos # (Auto) Baso # (Auto) Abs Immat Gran (auto) Absolute Neuts (auto) Absolute Nucleated RBC 0.000 Nucleated RBC % (auto) 0.0 Smear Path Review Hold Purple Top VBG pH VBG pCO2 VBG pO2 VBG HCO3 VBG O2 Saturation VBG Base Excess Sodium 146 H Potassium 4.0 Chloride 105 Carbon Dioxide 29 Anion Gap 16 BUN 34 H Creatinine 1.51 H Estim Creat Clear Calc 67.9 Estimated GFR 46 POC Glucose 90 117 H Random Glucose 104 Lactic Acid Lactic Acid F/U @ 2Hr Calcium 8.7 Iron TIBC % Saturation Unsat Iron Binding Total Bilirubin AST ALT Alkaline Phosphatase Troponin I High Sens NT-Pro-B Natriuret Pep Total Protein Albumin Vitamin B12 Folate Procalcitonin Stool Occult Blood Influenza Type A (PCR) Influenza Type B (PCR) RSV RNA Qual (PCR) SARS-CoV-2 RNA (RT-PCR) Blood Type Antibody Screen Crossmatch 07/16/25 07/16/25 07/16/25 11:25 16:06 19:59 WBC RBC Hgb Hct MCV MCH MCHC RDW Plt Count MPV Immature Gran % (Auto) Neut % (Auto) Lymph % (Auto) [place] % (Auto) Eos % (Auto) Baso % (Auto) Lymph # (Auto) [place] # (Auto) Eos # (Auto) Baso # (Auto) Abs Immat Gran (auto) Absolute Neuts (auto) Absolute Nucleated RBC Nucleated RBC % (auto) Smear Path Review Hold Purple Top VBG pH VBG pCO2 VBG pO2 VBG HCO3 VBG O2 Saturation VBG Base Excess Sodium Potassium Chloride Carbon Dioxide Anion Gap BUN Creatinine Estim Creat Clear Calc Estimated GFR POC Glucose 124 H 131 H 112 Random Glucose Lactic Acid Lactic Acid F/U @ 2Hr Calcium Iron TIBC % Saturation Unsat Iron Binding Total Bilirubin AST ALT Alkaline Phosphatase Troponin I High Sens NT-Pro-B Natriuret Pep Total Protein Albumin Vitamin B12 Folate Procalcitonin Stool Occult Blood Influenza Type A (PCR) Influenza Type B (PCR) RSV RNA Qual (PCR) SARS-CoV-2 RNA (RT-PCR) Blood Type Antibody Screen Crossmatch 07/17/25 06:57 WBC RBC Hgb Hct MCV MCH MCHC RDW Plt Count MPV Immature Gran % (Auto) Neut % (Auto) Lymph % (Auto) [place] % (Auto) Eos % (Auto) Baso % (Auto) Lymph # (Auto) [place] # (Auto) Eos # (Auto) Baso # (Auto) Abs Immat Gran (auto) Absolute Neuts (auto) Absolute Nucleated RBC Nucleated RBC % (auto) Smear Path Review Hold Purple Top VBG pH VBG pCO2 VBG pO2 VBG HCO3 VBG O2 Saturation VBG Base Excess Sodium Potassium Chloride Carbon Dioxide Anion Gap BUN Creatinine Estim Creat Clear Calc Estimated GFR POC Glucose 91 Random Glucose Lactic Acid Lactic Acid F/U @ 2Hr Calcium Iron TIBC % Saturation Unsat Iron Binding Total Bilirubin AST ALT Alkaline Phosphatase Troponin I High Sens NT-Pro-B Natriuret Pep Total Protein Albumin Vitamin B12 Folate Procalcitonin Stool Occult Blood Influenza Type A (PCR) Influenza Type B (PCR) RSV RNA Qual (PCR) SARS-CoV-2 RNA (RT-PCR) Blood Type Antibody Screen Crossmatch Narrative Narrative: ECHO 04/2025 Conclusions: - The left ventricular systolic function is mildly decreased. Visually estimated LVEF about 50%. - Moderately increased right ventricular cavity size. - There is moderate calcification of the aortic valve. There is mild aortic valve stenosis. - There is moderate mitral annular calcification. Airway Heart: RRR Lungs: decreased Other: trace to 1+ pitting edema b/l, unable to speak in full sentences without taking a break
[2025-07-17] MEDS: 0.9 % Sodium Chloride Flush 3 ML SYRINGE IVFLUSH ×2 (08:51→21:21)
[2025-07-17] MEDS: Furosemide 40 MG/4 ML VIAL IVPUSH ×2 (08:52→17:55)
[2025-07-17 11:07] LABS: Glucose, Whole Blood 98 mg/dL (60-115)
[2025-07-17 11:11] VITALS: BP 146/73; PULSE 68; RESP 20; TEMP 36.4; O2SAT 97
--- NOTE | 2025-07-17 11:38 | PM.PNCARD ---
Subjective Subjective Date of Service: 07/17/25 Principal diagnosis: CHF, anemia Interval history: Seen and examined at bedside. Continues to be significantly volume overloaded. Physical Exam Vital Signs: Last Vital Signs Temp 97.5 F 07/17/25 11:11 Pulse 68 07/17/25 11:11 Resp 20 07/17/25 11:11 BP 146/73 H 07/17/25 11:11 Pulse Ox 97 07/17/25 11:11 O2 Del Method Nasal Cannula 07/17/25 11:11 O2 Flow Rate 3 07/17/25 11:11 Oxygen Flow Rate 4 07/13/25 19:54 BMI result Body Mass Index 56.9 GENERAL APPEARANCE: Morbidly obese. On supplemental oxygen. NECK: no carotid bruit, + jugular venous distention. SKIN: no suspicious lesions, warm and dry. HEART: no murmurs, regular rate and rhythm. LUNGS: clear to auscultation bilaterally. ABDOMEN: soft, nontender. EXTREMITIES: + + edema. PERIPHERAL PULSES: equal. NEUROLOGIC: No gross deficits, AAO X 3 Objective Labs and Meds 07/16/25 06:20 07/16/25 06:20 Lab results: Laboratory Results - last 24 hr 07/16/25 07/16/25 07/17/25 16:06 19:59 06:57 POC Glucose 131 H 112 91 07/17/25 11:04 POC Glucose 98 Progress Note: A&P Assessment and plan (1) Diastolic heart failure: Status: Acute (2) Right heart failure: Status: Acute Plan [age] year gentleman presenting with congestive heart failure right more than left-sided failure. Continues to be significantly volume overloaded by examination. I think we continue IV diuretics at this point. Can titrate the spironolactone to 25 mg daily and eventually to b.i.d. if potassium stays stable. Continue Jardiance 10 mg daily. Thank you for allowing me to participate in the care of your patient. Please feel free to contact me if you have any questions. Time Spent With Patient Time: Total time managing care of this patient today ____ minutes. Progress Note: Quality Stroke Does the patient have a stroke diagnosis?: No Procedures Date of Service Date of Service: 07/17/25
[2025-07-17 15:32] LABS: Glucose, Whole Blood 98 mg/dL (60-115)
[2025-07-17 15:38] VITALS: BP 160/74; PULSE 57; RESP 19; TEMP 36.1; O2SAT 95
--- NOTE | 2025-07-17 16:18 | P.PNGI_ITS ---
Subjective Subjective Date of Service: 07/17/25 Interval History: no bleeding per patient tolerating diet Critical Care Time (minutes): 0 Physical Exam 2 Vital Signs: Vital Signs: Last Vital Signs Temp 97.0 F 07/17/25 15:38 Pulse 57 07/17/25 15:38 Resp 19 07/17/25 15:38 BP 160/74 H 07/17/25 15:38 Pulse Ox 95 07/17/25 15:38 O2 Del Method Nasal Cannula 07/17/25 15:38 O2 Flow Rate 3 07/17/25 15:38 Oxygen Flow Rate 4 07/13/25 19:54 BMI result Body Mass Index 56.9 GI: Other: abdomen is soft and nontender Objective Data Labs 07/16/25 06:20 07/16/25 06:20 Labs: Laboratory Results - last 24 hr 07/16/25 07/17/25 07/17/25 19:59 06:57 11:04 POC Glucose 112 91 98 07/17/25 15:27 POC Glucose 98 Microbiology Microbiology Results: Microbiology 07/13/25 20:13 Blood - Venous Blood Culture - Preliminary No growth after 48 hours. 07/13/25 20:13 Blood - Venous Blood Culture - Preliminary No growth after 48 hours. Procedures Date of Service Date of Service: 07/17/25 Progress Note: A&P Assessment and plan (1) Melena: Status: Acute Assessment and Plan: EGD cancelled by anesthesia today continue ppi, monitor hct please let me know if he becomes stable to have EGD Time Spent With Patient Time: Total time managing care of this patient today ____ minutes. Quality Stroke Does the patient have a stroke diagnosis?: No VTE Prior VTE?: No VTE Risk Level:: Medical - moderate - high VTE Device Contraindication: N/A - Device Ordered VTE Drug Contraindication: Treatment Not Indicated
--- NOTE | 2025-07-17 17:41 | P.PNIM_ITS ---
Subjective Subjective Date of Service: 07/17/25 Interval History: No new complaints today. Anesthesiology concerned regarding respiratory status currently in setting of volume overload. Diuresis ongoing with furosemide. Review of Systems Review of Systems: Yes all other systems are reviewed and are negative Physical Exam 2 Exam: Exam: General: A&O x3, oriented to time place person and situation, comfortable, no pain. MO habitus Cardiac: S1, S2 auscultated with no S3/4, no MRG. Well perfused. Respiratory: Normal breath sounds auscultated throughout all lung zones, without wheezing, rales. Normal rate. On 4 L NC GI/ : No abdominal pain on palpation, no masses or distentions. MSK: Normal ambulation without pain at bony prominences or musculature. Bilateral lower extremity edema 2+ to the mid spencer, with evidence of lipodermatosclerosis Neurological: Normal neurological examination on overview, without obvious CN II-XII abnormalities. Vital Signs: Vital Signs: Last Vital Signs Temp 97.0 F 07/17/25 15:38 Pulse 57 07/17/25 15:38 Resp 19 07/17/25 15:38 BP 160/74 H 07/17/25 15:38 Pulse Ox 95 07/17/25 15:38 O2 Del Method Nasal Cannula 07/17/25 15:38 O2 Flow Rate 3 07/17/25 15:38 Oxygen Flow Rate 4 07/13/25 19:54 BMI result Body Mass Index 56.9 Objective Data Active Medications Acetaminophen (Acetaminophen 325 Mg Tablet) 650 mg PO Q6H PRN PRN Reason: Pain, Mild 1-3,fever,headache Last Admin: 07/16/25 09:06 Dose: 650 mg Documented By: GOLD Albuterol/Ipratropium (Albuterol/Iprat 2.5/0.5mg 3 Ml Ampul.Neb) 3 ml INHALE Q4H PRN PRN Reason: Shortness of Breath/Wheezing Allopurinol (Allopurinol 300 Mg Tablet) 300 mg PO BID [facility] Last Admin: 07/17/25 08:51 Dose: 300 mg Documented By: KAELA Amlodipine Besylate (Amlodipine Besylate 5 Mg Tablet) 5 mg PO DAILY [facility]; Protocol Last Admin: 07/17/25 08:50 Dose: 5 mg Documented By: KAELA Atorvastatin Calcium (Atorvastatin Calcium 40 Mg Tablet) 40 mg PO BEDTIME [facility] Last Admin: 07/16/25 21:02 Dose: 40 mg Documented By: DAVID Benzonatate (Benzonatate 100 Mg Capsule) 100 mg PO TID PRN PRN Reason: Cough Bismuth Subsalicylate (Bismuth Subsalicylate 262 Mg Tablet) 262 mg PO QID PRN PRN Reason: Heartburn Calcium Carbonate (Calcium Carbonate 750 Mg Tab.Chew) 750 mg PO Q4H PRN PRN Reason: Heartburn Last Admin: 07/16/25 18:03 Dose: 750 mg Documented By: GOLD Dextrose (Dextrose 50 % 25 Gm/50 Ml Syringe) 25 gm IVPUSH Q15M PRN; Protocol PRN Reason: per Hypoglycemia Standing Ord. Duloxetine HCl (Duloxetine Hcl 30 Mg Capsule.Dr) 30 mg PO BID [facility] Last Admin: 07/17/25 08:50 Dose: 30 mg Documented By: KAELA Empagliflozin (Empagliflozin 10 Mg Tablet) 10 mg PO DAILY [facility] On Hold: 07/16/25 10:41 Last Admin: 07/16/25 08:43 Dose: 10 mg Documented By: GOLD Furosemide (Furosemide 40 Mg/4 Ml Vial) 40 mg IVPUSH BID@0900,1800 [facility]; Protocol Last Admin: 07/17/25 08:52 Dose: 40 mg Documented By: KAELA Glucose (Glucose Gel 15 Gm Gel..Gram.) 15 gm PO Q15M PRN; Protocol PRN Reason: per Hypoglycemia Standing Ord. Insulin Human Lispro (Insulin Lispro 100 Unit/Ml 3 Ml Vial) 0 unit SUBCUT QIDACHS [facility]; Protocol Last Admin: 07/17/25 15:30 Dose: Not Given Documented By: KAELA Non-Admin Reason: No Insulin Coverage Magnesium Hydroxide (Milk Of Magnesia 30 Ml Oral.Susp) 30 ml PO DAILY PRN PRN Reason: Constipation Melatonin (Melatonin 3 Mg Tablet) 6 mg PO BEDTIME PRN PRN Reason: Insomnia Polyethylene Glycol (Polyethylene Glycol 3350 17 Gm Powd.Pack) 17 gm PO DAILY PRN PRN Reason: Constipation Sodium Chloride (0.9 % Sodium Chloride Flush 3 Ml Syringe) [facility] Last Admin: 07/17/25 15:40 Dose: Not Given Documented By: KAELA Non-Admin Reason: No Insulin Coverage Spironolactone (Spironolactone 25 Mg Tablet) 12.5 mg PO DAILY [facility]; Protocol Last Admin: 07/17/25 08:49 Dose: 12.5 mg Documented By: KAELA Labs 07/16/25 06:20 07/16/25 06:20 Labs: Laboratory Results - last 24 hr 07/16/25 07/17/25 07/17/25 19:59 06:57 11:04 POC Glucose 112 91 98 07/17/25 15:27 POC Glucose 98 Assessment and Plan (1) Diastolic heart failure: Status: Acute (2) Right heart failure: Status: Acute (3) Decompensated heart failure: Status: Acute (4) Systolic murmur: Status: Acute (5) Bradycardia: Status: Acute (6) Persistent atrial fibrillation: Status: Acute (7) Hyperlipidemia: Status: Acute (8) Melena: Status: Acute (9) Acute kidney injury: Status: Acute (10) Hypomagnesemia: Status: Acute (11) Acute on chronic anemia: Status: Acute (12) Cerebrovascular accident (CVA): Status: Acute Plan 69-year-old male with a past medical history of HTN, HLD, LALI on home oxygen, AFib-not on anticoagulation; morbid obesity, CKD, diastolic heart failure, CVA, diabetes presented to the hospital today with a chief complaint of shortness of breath. Acute on chronic HFpEF exacerbation Daily weights and I/O Telemetry Lasix 40 mg IV bid Cardiology consulted, will start Jardiance 10mg daily and spironolactone 12.5 mg daily Has diuresed over 6L, BNP trending down Monitor on telemetry Acute on chronic Anemia likely secondary to GI bleed Minimal response to transfusion of 1 units of PRBC in the ED: hgb 6.4-->6.8 Transfused 2 additional units PRBC on 07/15 with better response Cardiology would like additional 1 unit PRBCs to maintain hct >30 Iron studies low; folate and B12 WNL; stool heme+ GI consult - plan for EGD/colonoscopy Wednesday IV ppi bid Clear liquid diet Mild FOREST on CKD Baseline creatinine around 1.31 Creatinine on presentation is 1.7. Improved to baseline post diuresis. Likely cardiorenal Monitor renal function while diuresing Bradycardia Hx of LALI Pt's HR noted to be in 30-40s while sleeping on 07/14 Improved last night to 40-50s after diuresisng Pt only on supplemental oxygen at night Had negative sleep study on 10/14/2023 Cardiology following, no indication for a pacemaker at this time Treat as above, monitor Monitor on telemetry Hypertension Continue home amlodipine [id number] type 2 diabetes Insulin sliding scale Diabetic diet QUALITY METRICS - VTE: Medical contraindicated-SCDs - CODE STATUS: Full code - DIET: Diabetic diet Total time managing care of this patient today: 35 minutes. Quality Stroke Does the patient have a stroke diagnosis?: No VTE Prior VTE?: No VTE Risk Level:: Medical - moderate - high VTE Device Contraindication: N/A - Device Ordered VTE Drug Contraindication: Treatment Not Indicated
[2025-07-17 19:17] VITALS: BP 116/84; PULSE 67; RESP 19; TEMP 36.5; O2SAT 98
[2025-07-17 19:35] LABS: Glucose, Whole Blood 149 mg/dL (60-115)
[2025-07-18] VITALS (7 sets, daily range): BP systolic 124–165; BP diastolic 57–77; PULSE 53–59; RESP 18–22; TEMP 36.1–36.9; O2SAT 94–97
[2025-07-18 07:00] LABS: Glucose, Whole Blood 89 mg/dL (60-115)
[2025-07-18] MEDS: 0.9 % Sodium Chloride Flush 3 ML SYRINGE IVFLUSH ×3 (09:15→21:40)
[2025-07-18] MEDS: Furosemide 40 MG/4 ML VIAL IVPUSH ×2 (09:17→18:28)
--- NOTE | 2025-07-18 10:40 | PM.PNCARD ---
Subjective Subjective Date of Service: 07/18/25 Principal diagnosis: CHF, anemia Interval history: Seen examined at bedside. Continues to be volume overloaded. Physical Exam Vital Signs: Last Vital Signs Temp 97.6 F 07/18/25 07:08 Pulse 53 07/18/25 07:08 Resp 20 07/18/25 07:08 BP 140/63 H 07/18/25 07:08 Pulse Ox 97 07/18/25 07:08 O2 Del Method Nasal Cannula 07/18/25 07:08 O2 Flow Rate 3 07/18/25 07:08 Oxygen Flow Rate 4 07/13/25 19:54 BMI result Body Mass Index 56.9 GENERAL APPEARANCE: Morbidly obese. On supplemental oxygen. NECK: no carotid bruit, + jugular venous distention. SKIN: no suspicious lesions, warm and dry. HEART: no murmurs, regular rate and rhythm. LUNGS: Crackles both lungs. ABDOMEN: soft, nontender. EXTREMITIES: + + edema. PERIPHERAL PULSES: equal. NEUROLOGIC: No gross deficits, AAO X 3 Objective Labs and Meds 07/16/25 06:20 07/18/25 07:19 Lab results: Laboratory Results - last 24 hr 07/17/25 07/17/25 07/17/25 11:04 15:27 19:30 POC Glucose 98 98 149 H 07/18/25 06:56 POC Glucose 89 Progress Note: A&P Assessment and plan (1) Diastolic heart failure: Status: Acute (2) Right heart failure: Status: Acute Plan 70-year-old gentleman presenting with congestive heart failure right more than left-sided failure. Continues to be significantly volume overloaded by examination. I think we continue IV diuretics at this point. Can titrate the spironolactone to 25 mg daily. Continue Jardiance 10 mg daily. Give metolazone 2.5 mg 30 minutes before the next dose of Lasix. Thank you for allowing me to participate in the care of your patient. Please feel free to contact me if you have any questions. Time Spent With Patient Time: Total time managing care of this patient today ____ minutes. Progress Note: Quality Stroke Does the patient have a stroke diagnosis?: No Procedures Date of Service Date of Service: 07/18/25
[2025-07-18 10:58] LABS: Glucose, Whole Blood 127 mg/dL (60-115)
[2025-07-18 11:29] LABS: Anion Gap 12 (12-20); Blood Urea Nitrogen 19 mg/dL (9-16); Calcium 8.8 mg/dL (8.4-10.2); Carbon Dioxide 36 mmol/L (22-29); Chloride 103 mmol/L (96-108); Creatinine Clr Calc Pharmacy 67.4; Estimated Glomerular Filt Rate 46; Potassium 3.4 mmol/L (3.3-5.1); Sodium 148 mmol/L (135-145)
[2025-07-18 16:50] LABS: Glucose, Whole Blood 113 mg/dL (60-115)
--- NOTE | 2025-07-18 19:09 | P.PNIM_ITS ---
Subjective Subjective Date of Service: 07/18/25 Interval History: No new complaints today. Patient lying in bed comfortably Oxygen via NC 3 L ongoing Patient has home oxygen 2 L as well. Patient appears volume overloaded, and has tachypnea, however no dyspnea. Review of Systems Review of Systems: Yes all other systems are reviewed and are negative Physical Exam 2 Exam: Exam: General: A&O x3, oriented to time place person and situation, comfortable, no pain. MO habitus Cardiac: S1, S2 auscultated with no S3/4, no MRG. Well perfused. Elevated JVP bilaterally to the angle of the mandible Respiratory: decreased breath sounds auscultated throughout all lung zones, with fine crepitations at the bases bilaterally, without wheezing, rales. tachypneic, not dyspneic. On 4 L NC GI/ : No abdominal pain on palpation, no masses or distentions. MSK: Normal ambulation without pain at bony prominences or musculature. Bilateral lower extremity edema 2+ to the mid spencer, with evidence of lipodermatosclerosis Neurological: Normal neurological examination on overview, without obvious CN II-XII abnormalities. Vital Signs: Vital Signs: Last Vital Signs Temp 96.9 F 07/18/25 15:43 Pulse 54 07/18/25 15:43 Resp 20 07/18/25 15:43 BP 124/57 L 07/18/25 15:43 Pulse Ox 97 07/18/25 15:43 O2 Del Method Nasal Cannula 07/18/25 15:43 O2 Flow Rate 4 07/18/25 15:43 Oxygen Flow Rate 4 07/13/25 19:54 BMI result Body Mass Index 56.9 Objective Data Active Medications Acetaminophen (Acetaminophen 325 Mg Tablet) 650 mg PO Q6H PRN PRN Reason: Pain, Mild 1-3,fever,headache Last Admin: 07/18/25 09:16 Dose: 650 mg Documented By: KAELA Comments: per patient request Albuterol/Ipratropium (Albuterol/Iprat 2.5/0.5mg 3 Ml Ampul.Neb) 3 ml INHALE Q4H PRN PRN Reason: Shortness of Breath/Wheezing Allopurinol (Allopurinol 300 Mg Tablet) 300 mg PO BID [facility] Last Admin: 07/18/25 09:15 Dose: 300 mg Documented By: KAELA Amlodipine Besylate (Amlodipine Besylate 5 Mg Tablet) 5 mg PO DAILY [facility]; Protocol Last Admin: 07/18/25 09:15 Dose: 5 mg Documented By: KAELA Atorvastatin Calcium (Atorvastatin Calcium 40 Mg Tablet) 40 mg PO BEDTIME [facility] Last Admin: 07/17/25 21:21 Dose: 40 mg Documented By: DAVID Benzonatate (Benzonatate 100 Mg Capsule) 100 mg PO TID PRN PRN Reason: Cough Bismuth Subsalicylate (Bismuth Subsalicylate 262 Mg Tablet) 262 mg PO QID PRN PRN Reason: Heartburn Calcium Carbonate (Calcium Carbonate 750 Mg Tab.Chew) 750 mg PO Q4H PRN PRN Reason: Heartburn Last Admin: 07/16/25 18:03 Dose: 750 mg Documented By: GOLD Dextrose (Dextrose 50 % 25 Gm/50 Ml Syringe) 25 gm IVPUSH Q15M PRN; Protocol PRN Reason: per Hypoglycemia Standing Ord. Duloxetine HCl (Duloxetine Hcl 30 Mg Capsule.Dr) 30 mg PO BID [facility] Last Admin: 07/18/25 09:17 Dose: 30 mg Documented By: KAELA Empagliflozin (Empagliflozin 10 Mg Tablet) 10 mg PO DAILY [facility] On Hold: 07/16/25 10:41 Last Admin: 07/16/25 08:43 Dose: 10 mg Documented By: GOLD Furosemide (Furosemide 40 Mg/4 Ml Vial) 40 mg IVPUSH BID@0900,1800 [facility]; Protocol Last Admin: 07/18/25 18:28 Dose: 40 mg Documented By: ALFREDO Glucose (Glucose Gel 15 Gm Gel..Gram.) 15 gm PO Q15M PRN; Protocol PRN Reason: per Hypoglycemia Standing Ord. Insulin Human Lispro (Insulin Lispro 100 Unit/Ml 3 Ml Vial) 0 unit SUBCUT QIDACHS [facility]; Protocol Last Admin: 07/18/25 17:35 Dose: Not Given Documented By: KAELA Non-Admin Reason: No Insulin Coverage Magnesium Hydroxide (Milk Of Magnesia 30 Ml Oral.Susp) 30 ml PO DAILY PRN PRN Reason: Constipation Melatonin (Melatonin 3 Mg Tablet) 6 mg PO BEDTIME PRN PRN Reason: Insomnia Polyethylene Glycol (Polyethylene Glycol 3350 17 Gm Powd.Pack) 17 gm PO DAILY PRN PRN Reason: Constipation Sodium Chloride (0.9 % Sodium Chloride Flush 3 Ml Syringe) 3 ml IVFLUSH QSHIFT [facility] Last Admin: 07/18/25 17:34 Dose: 3 ml Documented By: KAELA Spironolactone (Spironolactone 25 Mg Tablet) 25 mg PO DAILY [facility]; Protocol Labs 07/16/25 06:20 07/18/25 07:19 Labs: Laboratory Results - last 24 hr 07/17/25 07/18/25 07/18/25 19:30 06:56 07:19 Anion Gap 12 Estim Creat Clear Calc 67.4 Estimated GFR 46 POC Glucose 149 H 89 Random Glucose 92 Calcium 8.8 07/18/25 07/18/25 10:48 16:46 Anion Gap Estim Creat Clear Calc Estimated GFR POC Glucose 127 H 113 Random Glucose Calcium Assessment and Plan (1) Diastolic heart failure: Status: Acute (2) Right heart failure: Status: Acute (3) Decompensated heart failure: Status: Acute (4) Bradycardia: Status: Acute (5) Persistent atrial fibrillation: Status: Acute (6) Hyperlipidemia: Status: Acute (7) Melena: Status: Acute (8) Acute kidney injury: Status: Acute (9) Hypomagnesemia: Status: Acute (10) Acute on chronic anemia: Status: Acute (11) Cerebrovascular accident (CVA): Status: Acute (12) LALI (obstructive sleep apnea): Status: Acute (13) Requires continuous at home supplemental oxygen: Status: Acute Plan 69-year-old male with a past medical history of HTN, HLD, LALI on home oxygen, AFib-not on anticoagulation; morbid obesity, CKD, diastolic heart failure, CVA, diabetes presented to the hospital today with a chief complaint of shortness of breath. Acute on chronic HFpEF exacerbation Daily weights and I/O Telemetry Lasix 40 mg IV bid Cardiology consulted, will start Jardiance 10mg daily and spironolactone 12.5 mg daily Has diuresed over 6L, BNP trending down Monitor on telemetry Acute on chronic Anemia likely secondary to GI bleed Minimal response to transfusion of 1 units of PRBC in the ED: hgb 6.4-->6.8 Transfused 2 additional units PRBC on 07/15 with better response Cardiology would like additional 1 unit PRBCs to maintain hct >30 Iron studies low; folate and B12 WNL; stool heme+ GI consult - plan for EGD/colonoscopy; EGD/colonoscopy was deferred due to tenuous respiratory status after evaluation with anesthesia IV ppi bid Clear liquid diet Mild FOREST on CKD Baseline creatinine around 1.31 Creatinine on presentation is 1.7. Improved to baseline post diuresis. Likely cardiorenal Monitor renal function while diuresing Bradycardia Hx of LALI Pt's HR noted to be in 30-40s while sleeping on 07/14 Improved last night to 40-50s after diuresisng Pt only on supplemental oxygen at night Had negative sleep study on 10/14/2023 Cardiology following, no indication for a pacemaker at this time Treat as above, monitor Monitor on telemetry Chronic hypoxic respiratory failure On continuous home O2 patient is on continuous home oxygen 3 L The patient is noted to be tachypneic, however not dyspneic. Patient is at his respiratory baseline currently. Impression of superimposed acute CHF exacerbation leading to patient's tenuous respiratory status. Hypertension Continue home amlodipine [id number] type 2 diabetes Insulin sliding scale Diabetic diet Chronic atrial fibrillation Patient has been on anticoagulation for atrial fibrillation. Currently on hold 2/2 melena. [id number] Score score >2 indicating need for anticoagulation. we will discuss with Cardiology regarding safe re-initiation of anticoagulation more than likely will require EGD while inpatient QUALITY METRICS - VTE: Medical contraindicated-SCDs - CODE STATUS: Full code - DIET: Diabetic diet Total time managing care of this patient today: 45 minutes. Quality Stroke Does the patient have a stroke diagnosis?: No VTE Prior VTE?: No VTE Risk Level:: Medical - moderate - high VTE Device Contraindication: N/A - Device Ordered VTE Drug Contraindication: Treatment Not Indicated
[2025-07-18 19:58] LABS: Glucose, Whole Blood 112 mg/dL (60-115)
[2025-07-19] VITALS (7 sets, daily range): BP systolic 131–174; BP diastolic 62–79; PULSE 53–63; RESP 16–20; TEMP 36.3–36.6; O2SAT 72–98
[2025-07-19 07:00] LABS: Glucose, Whole Blood 103 mg/dL (60-115)
[2025-07-19 07:13] LABS: Anion Gap 13 (12-20); Blood Urea Nitrogen 19 mg/dL (9-16); Calcium 9.3 mg/dL (8.4-10.2); Carbon Dioxide 38 mmol/L (22-29); Chloride 98 mmol/L (96-108); Creatinine Clr Calc Pharmacy 65.2; Estimated Glomerular Filt Rate 44; Potassium 3.3 mmol/L (3.3-5.1); Sodium 146 mmol/L (135-145)
[2025-07-19] MEDS: 0.9 % Sodium Chloride Flush 3 ML SYRINGE IVFLUSH ×2 (08:39→22:24)
[2025-07-19] MEDS: Furosemide 40 MG/4 ML VIAL IVPUSH ×2 (08:39→17:22)
[2025-07-19 11:00] LABS: Glucose, Whole Blood 122 mg/dL (60-115)
--- NOTE | 2025-07-19 11:23 | P.CDIM_ITS ---
PROVIDER RESPONSE TEXT: To clarify, the appropriate diagnosis supported by the clinical indicators: CKD, stage 3 QUERY TEXT: PHYSICIAN'S DOCUMENTATION REQUEST Date of Query: 07/18/2025 12:46 PM EDT Patient Name: Chuck Card Admit Date: 07/14/2025 Dear Aurora Casiano MD, A review of the medical record indicates additional documentation may be needed. Please review below and update the documentation accordingly. Clinical Indicators: PMH of CKD creatinine on : 1.5 baseline creatinine around 1.31 eGFR 46.0 Please clarify which of the following accurately represents the patient's stage if CKD renal status: CKD, stage 1 CKD, stage 2 CKD, stage 3 CKD, stage 4 CKD, stage 5 Other (explain) Clinically unable to determine (explain) Thank you, Gely García RN Use of terms such as suspected, likely, concern for, or probable (associated with a specific diagnosis that is being evaluated, monitored, or treated as if it exists) are acceptable and can be coded in the inpatient setting, when documented at the time of discharge. Please use your independent medical judgment in providing your response. THIS QUERY IS PART OF THE PERMANENT MEDICAL RECORD
--- NOTE | 2025-07-19 13:31 | MHC.CM.PN ---
Addendum entered by Kristen Rodriguez 07/19/25 14:55: CM met with Patient at bedside to review SNF bed offers; per Patient's request, CM spoke with /HCP/Lenka @ [phone] to get her opinion on SNF choice. Per , Patient has been to [facility] in the past and that would be the first choice([facility] has accepted Patient). Per MD, Patient is not likely to be ready for dc until early next week so CM will not ask SNF to initiate insurance auth yet. Original Note: CM met with Patient at bedside to discuss PT's recommendation for STR; Patient is in agreement with this plan and the initiation of a SNF search. CM will follow.
--- NOTE | 2025-07-19 14:17 | PM.PNCARD ---
Subjective Subjective Date of Service: 07/19/25 Principal diagnosis: CHF, anemia Interval history: Seen and examined at bedside. diuresing ok. Physical Exam Vital Signs: Last Vital Signs Temp 97.3 F 07/19/25 11:10 Pulse 63 07/19/25 11:10 Resp 20 07/19/25 11:10 BP 131/69 07/19/25 11:10 Pulse Ox 97 07/19/25 11:10 O2 Del Method Nasal Cannula 07/19/25 11:10 O2 Flow Rate 3 07/19/25 11:10 Oxygen Flow Rate 4 07/13/25 19:54 BMI result Body Mass Index 56.9 GENERAL APPEARANCE: Morbidly obese. On supplemental oxygen. NECK: no carotid bruit, + jugular venous distention. SKIN: no suspicious lesions, warm and dry. HEART: no murmurs, regular rate and rhythm. LUNGS: clear anteriorly. ABDOMEN: soft, nontender. EXTREMITIES: + edema. PERIPHERAL PULSES: equal. NEUROLOGIC: No gross deficits, AAO X 3 Objective Labs and Meds 07/16/25 06:20 07/19/25 06:46 Lab results: Laboratory Results - last 24 hr 07/18/25 07/18/25 07/19/25 16:46 19:44 06:46 Sodium 146 H Potassium 3.3 Chloride 98 Carbon Dioxide 38 H Anion Gap 13 BUN 19 H Creatinine 1.55 H Estim Creat Clear Calc 65.2 Estimated GFR 44 POC Glucose 113 112 Random Glucose 103 Calcium 9.3 07/19/25 07/19/25 06:52 10:52 Sodium Potassium Chloride Carbon Dioxide Anion Gap BUN Creatinine Estim Creat Clear Calc Estimated GFR POC Glucose 103 122 H Random Glucose Calcium Progress Note: A&P Assessment and plan (1) Diastolic heart failure: Status: Acute (2) Right heart failure: Status: Acute Plan 70-year-old gentleman presenting with congestive heart failure right more than left-sided failure. Significant volume overload. On lasix and PRN PO metolazone. c/w spironolactone and Jardiance. Significant anemia, off anticoagulation. He has persistent Afib. If no GI work up then would favor holding the anticoagulation. Would discuss with structural colleague for Watchman device. Thank you for allowing me to participate in the care of your patient. Please feel free to contact me if you have any questions. Time Spent With Patient Time: Total time managing care of this patient today ____ minutes. Progress Note: Quality Stroke Does the patient have a stroke diagnosis?: No Procedures Date of Service Date of Service: 07/19/25
--- NOTE | 2025-07-19 14:28 | HO.PM.IMPN ---
Subjective Subjective Date of Service: 07/19/25 Interval History: Reports his breathing has improved compared to yesterday, however remains tachypneic. The patient does not endorse dyspnea. He is currently on 3 L O2 at baseline. The patient has been encouraged to intake more clear liquids to assist with effective diuresis. He remains fluid overloaded Review of Systems Review of Systems: Yes all other systems are reviewed and are negative Physical Exam Exam: Exam: General: A&O x3, oriented to time place person and situation, comfortable, no pain. MO habitus Cardiac: S1, S2 auscultated with no S3/4, no MRG. Well perfused. Elevated JVP bilaterally to the angle of the mandible Respiratory: decreased breath sounds auscultated throughout all lung zones, with fine crepitations at the bases bilaterally, without wheezing, rales. tachypneic, not dyspneic. On 3 L NC GI/ : No abdominal pain on palpation, no masses or distentions. MSK: Normal ambulation without pain at bony prominences or musculature. Bilateral lower extremity edema 2+ to the mid spencer, with evidence of lipodermatosclerosis Neurological: Normal neurological examination on overview, without obvious CN II-XII abnormalities. Vital Signs: Vital Signs: Last Vital Signs Temp 97.3 F 07/19/25 11:10 Pulse 63 07/19/25 11:10 Resp 20 07/19/25 11:10 BP 131/69 07/19/25 11:10 Pulse Ox 97 07/19/25 11:10 O2 Del Method Nasal Cannula 07/19/25 11:10 O2 Flow Rate 3 07/19/25 11:10 Oxygen Flow Rate 4 07/13/25 19:54 BMI result Body Mass Index 56.9 Objective Data Active Medications Acetaminophen (Acetaminophen 325 Mg Tablet) 650 mg PO Q6H PRN PRN Reason: Pain, Mild 1-3,fever,headache Last Admin: 07/18/25 09:16 Dose: 650 mg Documented By: KAELA Comments: per patient request Albuterol/Ipratropium (Albuterol/Iprat 2.5/0.5mg 3 Ml Ampul.Neb) 3 ml INHALE Q4H PRN PRN Reason: Shortness of Breath/Wheezing Allopurinol (Allopurinol 300 Mg Tablet) 300 mg PO BID [facility] Last Admin: 07/19/25 08:39 Dose: 300 mg Documented By: RORY Amlodipine Besylate (Amlodipine Besylate 5 Mg Tablet) 5 mg PO DAILY [facility]; Protocol Last Admin: 07/19/25 08:39 Dose: 5 mg Documented By: RORY Atorvastatin Calcium (Atorvastatin Calcium 40 Mg Tablet) 40 mg PO BEDTIME [facility] Last Admin: 07/18/25 21:40 Dose: 40 mg Documented By: DAVID Benzonatate (Benzonatate 100 Mg Capsule) 100 mg PO TID PRN PRN Reason: Cough Bismuth Subsalicylate (Bismuth Subsalicylate 262 Mg Tablet) 262 mg PO QID PRN PRN Reason: Heartburn Calcium Carbonate (Calcium Carbonate 750 Mg Tab.Chew) 750 mg PO Q4H PRN PRN Reason: Heartburn Last Admin: 07/16/25 18:03 Dose: 750 mg Documented By: GOLD Dextrose (Dextrose 50 % 25 Gm/50 Ml Syringe) 25 gm IVPUSH Q15M PRN; Protocol PRN Reason: per Hypoglycemia Standing Ord. Duloxetine HCl (Duloxetine Hcl 30 Mg Capsule.Dr) 30 mg PO BID [facility] Last Admin: 07/19/25 08:39 Dose: 30 mg Documented By: RORY Empagliflozin (Empagliflozin 10 Mg Tablet) 10 mg PO DAILY [facility] On Hold: 07/16/25 10:41 Last Admin: 07/16/25 08:43 Dose: 10 mg Documented By: GOLD Furosemide (Furosemide 40 Mg/4 Ml Vial) 40 mg IVPUSH BID@0900,1800 [facility]; Protocol Last Admin: 07/19/25 08:39 Dose: 40 mg Documented By: RORY Glucose (Glucose Gel 15 Gm Gel..Gram.) 15 gm PO Q15M PRN; Protocol PRN Reason: per Hypoglycemia Standing Ord. Insulin Human Lispro (Insulin Lispro 100 Unit/Ml 3 Ml Vial) 0 unit SUBCUT QIDACHS [facility]; Protocol Last Admin: 07/19/25 11:06 Dose: Not Given Documented By: RORY Non-Admin Reason: No Insulin Coverage Magnesium Hydroxide (Milk Of Magnesia 30 Ml Oral.Susp) 30 ml PO DAILY PRN PRN Reason: Constipation Melatonin (Melatonin 3 Mg Tablet) 6 mg PO BEDTIME PRN PRN Reason: Insomnia Polyethylene Glycol (Polyethylene Glycol 3350 17 Gm Powd.Pack) 17 gm PO DAILY PRN PRN Reason: Constipation Sodium Chloride (0.9 % Sodium Chloride Flush 3 Ml Syringe) 3 ml IVFLUSH QSHIFT [facility] Last Admin: 07/19/25 08:39 Dose: 3 ml Documented By: RORY Spironolactone (Spironolactone 25 Mg Tablet) 25 mg PO DAILY [facility]; Protocol Last Admin: 07/19/25 08:39 Dose: 25 mg Documented By: RORY Labs 07/16/25 06:20 07/19/25 06:46 Labs: Laboratory Results - last 24 hr 07/18/25 07/18/25 07/19/25 16:46 19:44 06:46 Anion Gap 13 Estim Creat Clear Calc 65.2 Estimated GFR 44 POC Glucose 113 112 Random Glucose 103 Calcium 9.3 07/19/25 07/19/25 06:52 10:52 Anion Gap Estim Creat Clear Calc Estimated GFR POC Glucose 103 122 H Random Glucose Calcium Microbiology Microbiology Results: Microbiology 07/13/25 20:13 Blood Culture - Final Blood - Venous No growth after 5 days. 07/13/25 20:13 Blood Culture - Final Blood - Venous No growth after 5 days. Assessment and Plan (1) Diastolic heart failure: Status: Acute (2) Decompensated heart failure: Status: Acute (3) Bradycardia: Status: Acute (4) Persistent atrial fibrillation: Status: Acute (5) Hyperlipidemia: Status: Acute (6) Melena: Status: Acute (7) Acute kidney injury: Status: Acute (8) Hypomagnesemia: Status: Acute (9) Acute on chronic anemia: Status: Acute (10) Cerebrovascular accident (CVA): Status: Acute (11) Requires continuous at home supplemental oxygen: Status: Acute (12) LALI (obstructive sleep apnea): Status: Acute Plan 69-year-old male with a past medical history of HTN, HLD, LALI on home oxygen, AFib-not on anticoagulation; morbid obesity, CKD, diastolic heart failure, CVA, diabetes presented to the hospital today with a chief complaint of shortness of breath. Acute on chronic HFpEF exacerbation Daily weights and I/O Telemetry Lasix 40 mg IV bid Cardiology consulted, will start Jardiance 10mg daily and spironolactone 12.5 mg daily Has diuresed over 6L, BNP trending down Monitor on telemetry Acute on chronic Anemia likely secondary to GI bleed Minimal response to transfusion of 1 units of PRBC in the ED: hgb 6.4-->6.8 Transfused 2 additional units PRBC on 07/15 with better response Cardiology would like additional 1 unit PRBCs to maintain hct >30 Iron studies low; folate and B12 WNL; stool heme+ GI consult - plan for EGD/colonoscopy; EGD/colonoscopy was deferred due to tenuous respiratory status after evaluation with anesthesia IV ppi bid Clear liquid diet Mild FOREST on CKD Baseline creatinine around 1.31 Creatinine on presentation is 1.7. Improved to baseline post diuresis. Likely cardiorenal Monitor renal function while diuresing Bradycardia Hx of LALI Pt's HR noted to be in 30-40s while sleeping on 07/14 Improved last night to 40-50s after diuresisng Pt only on supplemental oxygen at night Had negative sleep study on 10/14/2023 Cardiology following, no indication for a pacemaker at this time Treat as above, monitor Monitor on telemetry Chronic hypoxic respiratory failure On continuous home O2 patient is on continuous home oxygen 3 L The patient is noted to be tachypneic, however not dyspneic. Patient is at his respiratory baseline currently. Impression of superimposed acute CHF exacerbation leading to patient's tenuous respiratory status. Hypertension Continue home amlodipine Yuq-ybyapiy-qjkijandm type 2 diabetes Insulin sliding scale Diabetic diet Chronic atrial fibrillation Patient has been on anticoagulation for atrial fibrillation. Currently on hold 2/2 melena. [id number] Score score >2 indicating need for anticoagulation. we will discuss with Cardiology regarding safe re-initiation of anticoagulation more than likely will require EGD while inpatient [facility] - VTE: Medical contraindicated-SCDs - CODE STATUS: Full code - DIET: Diabetic diet Total time managing care of this patient today: 35 minutes. Quality Stroke Does the patient have a stroke diagnosis?: No VTE Prior VTE?: No VTE Risk Level:: Medical - moderate - high VTE Device Contraindication: N/A - Device Ordered VTE Drug Contraindication: Treatment Not Indicated
[2025-07-19 15:50] LABS: Glucose, Whole Blood 88 mg/dL (60-115)
[2025-07-19 20:11] LABS: Glucose, Whole Blood 136 mg/dL (60-115)
[2025-07-20] VITALS (8 sets, daily range): BP systolic 108–132; BP diastolic 54–61; PULSE 52–82; RESP 18–20; TEMP 36.1–36.8; O2SAT 79–99
[2025-07-20 07:39] LABS: Glucose, Whole Blood 89 mg/dL (60-115)
[2025-07-20 07:48] LABS: Anion Gap 16 (12-20); Blood Urea Nitrogen 19 mg/dL (9-16); Calcium 9.6 mg/dL (8.4-10.2); Carbon Dioxide 41 mmol/L (22-29); Chloride 93 mmol/L (96-108); Creatinine Clr Calc Pharmacy 66.1; Estimated Glomerular Filt Rate 45; Potassium 3.5 mmol/L (3.3-5.1); Sodium 146 mmol/L (135-145)
[2025-07-20] MEDS: 0.9 % Sodium Chloride Flush 3 ML SYRINGE IVFLUSH ×3 (09:42→20:40)
[2025-07-20] MEDS: Furosemide 40 MG/4 ML VIAL IVPUSH ×2 (09:56→17:53)
--- NOTE | 2025-07-20 10:35 | MHC.CM.PN ---
Per ROUNDS discussion, Patient is not yet medically cleared for dc (Volume Overloaded, EGD on Wednesday07/23/2025); PT is recommending STR and Patient has been accepted at his first choice SNF/[facility].
--- NOTE | 2025-07-20 12:00 | CA_ITS ---
Transthoracic Echocardiogram Patient (Last, First, Middle): Chuck Card G Gender: Male Date of : 1955 Age: 70 Procedure Date: 07/20/2025 Procedure Type: Transthoracic Echocardiogram [place] [facility] [place] Height: 170.18 cm Weight: 164.66 kg BSA: 2.61 m2 Heart Rate: bpm BP: 126 / 60 mmHg Loss Prevention Specialist: Referring MD: Giacomo Campbell MD Symptoms: RHF, Study Quality: Adequate ECG Rhythm: Atrial Fibrillation Conclusions: - There is moderately increased left ventricular wall thickness. The left ventricular systolic function is low normal. The visually estimated ejection fraction is between 50-55%. - There is moderately decreased right ventricular systolic function. Fxkzgnel-rj-gxzyvs RV dilation. - The left atrium is moderately dilated. The right atrium is mildly dilated. - Low-flow low gradient moderate aortic valve stenosis. - There is mild to moderate tricuspid valve regurgitation. - Significantly elevated right atrial pressure. - Moderate pulmonary hypertension is present. Findings Left Ventricle There is moderately increased left ventricular wall thickness. The left ventricular systolic function is low normal. The visually estimated ejection fraction is between 50-55%. There is no evidence of regional wall motion abnormalities. Diastolic function is indeterminate on the basis of available data. LV size at upper limit of normal. Right Ventricle There is moderately decreased right ventricular systolic function. Moderate to-severe RV dilation. Atria The left atrium is moderately dilated. The right atrium is mildly dilated. Aortic Valve There is a normal trileaflet aortic valve. There is moderate calcification of the aortic valve. The peak aortic velocity is 2.76 m/s. The mean gradient is 19 mmHg. The aortic valve area is 0.97 cm2. There is no aortic valve regurgitation. SVI 26.81 Low-flow low gradient moderate aortic valve stenosis. Mitral Valve The mitral valve appears normal. There is moderate mitral annular calcification. There is trace mitral valve regurgitation. There is no mitral valve stenosis. Pulmonic Valve The pulmonic valve is normal. There is trace pulmonic valve regurgitation. Tricuspid Valve Normal tricuspid valve structure. There is mild to moderate tricuspid valve regurgitation. Significantly elevated right atrial pressure. Moderate pulmonary hypertension is present. Great Vessels All visible segments of the aorta are normal in size. Venous The inferior vena cava is dilated and does not collapse with inspiration. Pericardium/Pleural There is no evidence of pericardial effusion. Prior Study Comparison Changes noted compared to prior study dated: 04/16/2025. Low normal ejection fraction. [id number] RV dilation with moderate RV dysfunction. LFLG moderate . Measurements 2D Linear Measurements IVSd: 1.39 0.6-0.9/0.6-1.0 cm LVIDd: 5.74 3.9-5.3/4.2-5.9 cm LVIDd Index: 2.20 2.4-3.2/2.2-3.1 cm/m2 LVIDs: 4.13 2.0-3.6 cm LVPWd: 1.25 0.7-1.1 cm Ao Root: 3.70 2.1-3.5 cm LA Diam: 5.20 2.7-3.8/3.0-4.0 cm LAIDs Index: 1.99 1.5-2.3 cm/m2 LV Mass: 415.34 67-162/88-224 g LV Mass Index: 159.13 43-95/49-115 g/m2 LVOT Diam: 2.10 3.0+(-)1.3 cm 2D Systolic Function EF 4C: 49.80 >55% EF 2C: 53.00 >55% EF BiP: 51.80 >55% Mitral Valve MV VTI: 0.40 MV Pk Srikanth: 1.33 MV Mn Srikanht: 0.60 MV Pk Grad: 7.00 MV Mn Grad: 2.00 MV Pk E: 1.29 MV Decel Time: 288.00 E'Lateral: 8.59 E'Medial: 4.46 E/E' Med: 28.90 E/E' Lat: 15.00 PHT: 84.00 MVA PHT: 2.62 MVA Continuity: 1.41 Decel [place]: 4.48 Aortic Valve AoV Pk Srikanth: 2.76 AoV Mn Srikanth: 2.02 AoV VTI: 0.59 AoV Pk Grad: 30.00 Aov Mn Grad: 19.00 [place] Cont.VTI: 0.97 LVOT LVOT Pk Srikanth: 0.81 LVOT Mn Srikanth: 0.53 LVOT VTI: 0.17 LVOT Pk Grad: 3.00 LVOT Mn Grad: 2.00 LVOT Diam: 2.10 LVOT Area: 3.46 Diastolic Function MV Pk E: 1.29 E'Medial: 4.46 E/E' Med: 28.90 E' Laterial: 8.59 E/E' Lat: 15.00 Right Ventricle TAPSE (mm): 23.00 TVS' Srikanth: 8.00 Tricuspid Valve TR Pk Srikanth: 2.94 TR Pk Grad: 35.00 RA Press: 15.00 RVSP: 50.00 Great Vessels Aorta Ao Root-2D: 3.70 2.0-3.7 cm Ao Asc: 3.50 2.1-3.4 cm Pulmonary Valve PV Pk Srikanth: 1.19 Peak PV Grad: 6.00 Updated in Other Vendor System with Status of Final Giacomo Campbell MD electronically signed on 07/21/2025 2:12:02 PM with status of Final
[2025-07-20 12:05] LABS: Glucose, Whole Blood 101 mg/dL (60-115)
--- NOTE | 2025-07-20 12:07 | PM.PNCARD ---
Subjective Subjective Date of Service: 07/20/25 Principal diagnosis: CHF, anemia Interval history: Seen examined at bedside. Clinically still volume overloaded and we are diuresing him. Hemoglobin has been stable. Physical Exam Vital Signs: Last Vital Signs Temp 98.3 F 07/20/25 07:44 Pulse 68 07/20/25 07:44 Resp 18 07/20/25 07:44 BP 126/60 07/20/25 07:44 Pulse Ox 93 07/20/25 07:44 O2 Del Method Nasal Cannula 07/20/25 07:44 O2 Flow Rate 3 07/20/25 07:44 Oxygen Flow Rate 4 07/13/25 19:54 BMI result Body Mass Index 56.9 GENERAL APPEARANCE: Morbidly obese. On supplemental oxygen. NECK: no carotid bruit, + jugular venous distention. SKIN: no suspicious lesions, warm and dry. HEART: no murmurs, regular rate and rhythm. LUNGS: Bilateral crackles. ABDOMEN: soft, nontender. EXTREMITIES: + edema. PERIPHERAL PULSES: equal. NEUROLOGIC: No gross deficits, AAO X 3 Objective Labs and Meds 07/16/25 06:20 07/20/25 06:46 Lab results: Laboratory Results - last 24 hr 07/19/25 07/19/25 07/20/25 15:42 19:09 06:46 Sodium 146 H Potassium 3.5 Chloride 93 L Carbon Dioxide 41 H* Anion Gap 16 BUN 19 H Creatinine 1.53 H Estim Creat Clear Calc 66.1 Estimated GFR 45 POC Glucose 88 136 H Random Glucose 87 Calcium 9.6 07/20/25 07/20/25 07:05 11:28 Sodium Potassium Chloride Carbon Dioxide Anion Gap BUN Creatinine Estim Creat Clear Calc Estimated GFR POC Glucose 89 101 Random Glucose Calcium Progress Note: A&P Assessment and plan (1) Diastolic heart failure: Status: Acute (2) Right heart failure: Status: Acute (3) Persistent atrial fibrillation: Status: Acute Plan 70-year-old gentleman presenting with congestive heart failure right more than left-sided failure. Significant volume overload. On lasix and PRN PO metolazone. c/w spironolactone and Jardiance. Significant anemia, off anticoagulation. He has persistent Afib. If no GI work up then would favor holding the anticoagulation. Would discuss with structural colleague for Watchman device. I will repeat echocardiography to reassess the ventricular function and assess the aortic valve. He has aortic stenosis murmur in April it was thought to be mild . Thank you for allowing me to participate in the care of your patient. Please feel free to contact me if you have any questions. Time Spent With Patient Time: Total time managing care of this patient today ____ minutes. Progress Note: Quality Stroke Does the patient have a stroke diagnosis?: No Procedures Date of Service Date of Service: 07/20/25
--- NOTE | 2025-07-20 15:10 | P.PNIM_ITS ---
Subjective Subjective Date of Service: 07/20/25 Interval History: Feels like his respiratory function has improved as compared to yesterday. Remains on 3 L O2, at baseline. Patient has had complaints in terms of cough, dyspnea currently. Reports that he feels ?editor news? - patient has been diuresed 8 L of fluid so far, equivalent to 17.5lbs Review of Systems Review of Systems: Yes all other systems are reviewed and are negative Physical Exam 2 Exam: Exam: General: A&O x3, oriented to time place person and situation, comfortable, no pain. MO habitus Cardiac: S1, S2 auscultated with no S3/4, no MRG. Well perfused. Elevated JVP bilaterally to the angle of the mandible Respiratory: decreased breath sounds auscultated throughout all lung zones, with fine crepitations at the bases bilaterally, without wheezing, rales. tachypneic, not dyspneic. On 3 L NC GI/ : No abdominal pain on palpation, no masses or distentions. MSK: Normal ambulation without pain at bony prominences or musculature. Bilateral lower extremity edema 2+ to the mid spencer, with evidence of lipodermatosclerosis Neurological: Normal neurological examination on overview, without obvious CN II-XII abnormalities. Vital Signs: Vital Signs: Last Vital Signs Temp 97.0 F 07/20/25 12:00 Pulse 62 07/20/25 12:00 Resp 18 07/20/25 12:00 BP 110/54 L 07/20/25 12:00 Pulse Ox 94 07/20/25 12:00 O2 Del Method Nasal Cannula 07/20/25 12:00 O2 Flow Rate 3 07/20/25 12:00 Oxygen Flow Rate 4 07/13/25 19:54 BMI result Body Mass Index 56.9 Objective Data Active Medications Acetaminophen (Acetaminophen 325 Mg Tablet) 650 mg PO Q6H PRN PRN Reason: Pain, Mild 1-3,fever,headache Last Admin: 07/20/25 13:03 Dose: 650 mg Documented By: PADDY Albuterol/Ipratropium (Albuterol/Iprat 2.5/0.5mg 3 Ml Ampul.Neb) 3 ml INHALE Q4H PRN PRN Reason: Shortness of Breath/Wheezing Allopurinol (Allopurinol 300 Mg Tablet) 300 mg PO BID [facility] Last Admin: 07/20/25 09:43 Dose: 300 mg Documented By: PADDY Amlodipine Besylate (Amlodipine Besylate 5 Mg Tablet) 5 mg PO DAILY [facility]; Protocol Last Admin: 07/20/25 09:43 Dose: 5 mg Documented By: PADDY Atorvastatin Calcium (Atorvastatin Calcium 40 Mg Tablet) 40 mg PO BEDTIME [facility] Last Admin: 07/19/25 22:23 Dose: 40 mg Documented By: FIDEL Benzonatate (Benzonatate 100 Mg Capsule) 100 mg PO TID PRN PRN Reason: Cough Bismuth Subsalicylate (Bismuth Subsalicylate 262 Mg Tablet) 262 mg PO QID PRN PRN Reason: Heartburn Calcium Carbonate (Calcium Carbonate 750 Mg Tab.Chew) 750 mg PO Q4H PRN PRN Reason: Heartburn Last Admin: 07/16/25 18:03 Dose: 750 mg Documented By: GOLD Dextrose (Dextrose 50 % 25 Gm/50 Ml Syringe) 25 gm IVPUSH Q15M PRN; Protocol PRN Reason: per Hypoglycemia Standing Ord. Duloxetine HCl (Duloxetine Hcl 30 Mg Capsule.Dr) 30 mg PO BID [facility] Last Admin: 07/20/25 09:43 Dose: 30 mg Documented By: PADDY Empagliflozin (Empagliflozin 10 Mg Tablet) 10 mg PO DAILY [facility] On Hold: 07/16/25 10:41 Last Admin: 07/16/25 08:43 Dose: 10 mg Documented By: GOLD Furosemide (Furosemide 40 Mg/4 Ml Vial) 40 mg IVPUSH BID@0900,1800 [facility]; Protocol Last Admin: 07/20/25 09:56 Dose: 40 mg Documented By: PADDY Glucose (Glucose Gel 15 Gm Gel..Gram.) 15 gm PO Q15M PRN; Protocol PRN Reason: per Hypoglycemia Standing Ord. Insulin Human Lispro (Insulin Lispro 100 Unit/Ml 3 Ml Vial) 0 unit SUBCUT QIDACHS [facility]; Protocol Last Admin: 07/20/25 12:50 Dose: Not Given Documented By: PADDY Non-Admin Reason: No Insulin Coverage Magnesium Hydroxide (Milk Of Magnesia 30 Ml Oral.Susp) 30 ml PO DAILY PRN PRN Reason: Constipation Melatonin (Melatonin 3 Mg Tablet) 6 mg PO BEDTIME PRN PRN Reason: Insomnia Polyethylene Glycol (Polyethylene Glycol 3350 17 Gm Powd.Pack) 17 gm PO DAILY PRN PRN Reason: Constipation Sodium Chloride (0.9 % Sodium Chloride Flush 3 Ml Syringe) 3 ml IVFLUSH QSHIFT [facility] Last Admin: 07/20/25 09:42 Dose: 3 ml Documented By: APDDY Spironolactone (Spironolactone 25 Mg Tablet) 25 mg PO DAILY [facility]; Protocol Last Admin: 07/20/25 09:43 Dose: 25 mg Documented By: PADDY Labs 07/16/25 06:20 07/20/25 06:46 Labs: Laboratory Results - last 24 hr 07/19/25 07/19/25 07/20/25 15:42 19:09 06:46 Anion Gap 16 Estim Creat Clear Calc 66.1 Estimated GFR 45 POC Glucose 88 136 H Random Glucose 87 Calcium 9.6 07/20/25 07/20/25 07:05 11:28 Anion Gap Estim Creat Clear Calc Estimated GFR POC Glucose 89 101 Random Glucose Calcium Assessment and Plan (1) Diastolic heart failure: Status: Acute (2) Decompensated heart failure: Status: Acute (3) Right heart failure: Status: Acute (4) Bradycardia: Status: Acute (5) Persistent atrial fibrillation: Status: Acute (6) Hyperlipidemia: Status: Acute (7) Melena: Status: Acute (8) Acute kidney injury: Status: Acute (9) Hypomagnesemia: Status: Acute (10) Acute on chronic anemia: Status: Acute (11) Cerebrovascular accident (CVA): Status: Acute (12) Requires continuous at home supplemental oxygen: Status: Acute (13) LALI (obstructive sleep apnea): Status: Acute Plan 69-year-old male with a past medical history of HTN, HLD, LALI on home oxygen, AFib-not on anticoagulation; morbid obesity, CKD, diastolic heart failure, CVA, diabetes presented to the hospital today with a chief complaint of shortness of breath. Acute on chronic HFpEF exacerbation Daily weights and I/O Telemetry Lasix 40 mg IV bid Cardiology consulted, will start Jardiance 10mg daily and spironolactone 12.5 mg daily Has diuresed over 6L, BNP trending down Monitor on telemetry Acute on chronic Anemia likely secondary to GI bleed Minimal response to transfusion of 1 units of PRBC in the ED: hgb 6.4-->6.8 Transfused 2 additional units PRBC on 07/15 with better response Cardiology would like additional 1 unit PRBCs to maintain hct >30 Iron studies low; folate and B12 WNL; stool heme+ GI consult - plan for EGD/colonoscopy; EGD/colonoscopy was deferred due to tenuous respiratory status after evaluation with anesthesia IV ppi bid Clear liquid diet Mild FOREST on CKD Baseline creatinine around 1.31 Creatinine on presentation is 1.7. Improved to baseline post diuresis. Likely cardiorenal Monitor renal function while diuresing Bradycardia Hx of LALI Pt's HR noted to be in 30-40s while sleeping on 07/14 Improved last night to 40-50s after diuresisng Pt only on supplemental oxygen at night Had negative sleep study on 10/14/2023 Cardiology following, no indication for a pacemaker at this time Treat as above, monitor Monitor on telemetry Chronic hypoxic respiratory failure On continuous home O2 patient is on continuous home oxygen 3 L The patient is noted to be tachypneic, however not dyspneic. Patient is at his respiratory baseline currently. Impression of superimposed acute CHF exacerbation leading to patient's tenuous respiratory status. Hypertension Continue home amlodipine Qri-rghfoea-ixyvnbtss type 2 diabetes Insulin sliding scale Diabetic diet Chronic atrial fibrillation Patient has been on anticoagulation for atrial fibrillation. Currently on hold 2/2 melena. [id number] Score score >2 indicating need for anticoagulation. we will discuss with Cardiology regarding safe re-initiation of anticoagulation more than likely will require EGD while inpatient [facility] - VTE: Medical contraindicated-SCDs - CODE STATUS: Full code - DIET: Diabetic diet Total time managing care of this patient today: 35 minutes. Quality Stroke Does the patient have a stroke diagnosis?: No VTE Prior VTE?: No VTE Risk Level:: Medical - moderate - high VTE Device Contraindication: N/A - Device Ordered VTE Drug Contraindication: Treatment Not Indicated
[2025-07-20 16:34] LABS: Glucose, Whole Blood 109 mg/dL (60-115)
[2025-07-20 20:32] LABS: Glucose, Whole Blood 94 mg/dL (60-115)
[2025-07-21] VITALS (8 sets, daily range): BP systolic 92–136; BP diastolic 50–68; PULSE 62–68; RESP 18–20; TEMP 36.1–36.6; O2SAT 94–99
[2025-07-21 06:55] LABS: Hematocrit 33.0 % (42.0-52.0); Hemoglobin 9.4 g/dl (14.0-18.0); Mean Corpuscular HGB Conc 28.5 g/dl (31.0-36.0); Mean Corpuscular Hemoglobin 24.3 pg (27.0-33.0); Mean Corpuscular Volume 85.3 fL (80.0-98.0); NRBC Abs Auto 0.000 X10*3/uL (0.0-0.012); NRBC Pct Auto 0.0 /100WBC (0.0-0.2); Platelet Count 268 X10*3/uL (160-400); Red Blood Count 3.87 X10*6/uL (4.60-5.80); White Blood Count 10.7 X10*3/uL (4.8-10.8)
[2025-07-21 07:22] LABS: Anion Gap 14 (12-20); Blood Urea Nitrogen 19 mg/dL (9-16); Calcium 9.4 mg/dL (8.4-10.2); Carbon Dioxide 42 mmol/L (22-29); Chloride 91 mmol/L (96-108); Creatinine Clr Calc Pharmacy 65.2; Estimated Glomerular Filt Rate 44; Potassium 3.0 mmol/L (3.3-5.1); Sodium 144 mmol/L (135-145)
[2025-07-21 08:05] LABS: Glucose, Whole Blood 109 mg/dL (60-115)
[2025-07-21] MEDS: 0.9 % Sodium Chloride Flush 3 ML SYRINGE IVFLUSH (11:10)
[2025-07-21] MEDS: Lactated Ringers 1,000 ML 100 ML IVCONT (11:34)
[2025-07-21 11:57] LABS: Glucose, Whole Blood 112 mg/dL (60-115)
--- NOTE | 2025-07-21 13:13 | PM.PNCARD ---
Subjective Subjective Date of Service: 07/21/25 Principal diagnosis: CHF, anemia Interval history: Seen examined at bedside. He was 3 L negative over night. His blood pressure was low today and diuretics were held. Physical Exam Vital Signs: Last Vital Signs Temp 97.2 F 07/21/25 11:27 Pulse 65 07/21/25 11:27 Resp 18 07/21/25 11:27 BP 110/64 07/21/25 11:27 Pulse Ox 95 07/21/25 11:27 O2 Del Method Nasal Cannula 07/21/25 11:27 O2 Flow Rate 3 07/21/25 11:27 Oxygen Flow Rate 4 07/13/25 19:54 BMI result Body Mass Index 56.9 GENERAL APPEARANCE: Morbidly obese. On supplemental oxygen. NECK: no carotid bruit, no significant jugular venous distention. SKIN: no suspicious lesions, warm and dry. HEART: no murmurs, irregular rate and rhythm. LUNGS: Right basilar crackles. ABDOMEN: soft, nontender. EXTREMITIES: + edema. PERIPHERAL PULSES: equal. NEUROLOGIC: No gross deficits, AAO X 3 Objective Labs and Meds 07/21/25 05:47 07/21/25 05:47 Lab results: Laboratory Results - last 24 hr 07/20/25 07/20/25 07/21/25 16:30 20:28 05:47 WBC 10.7 RBC 3.87 L Hgb 9.4 L Hct 33.0 L MCV 85.3 MCH 24.3 L MCHC 28.5 L RDW 17.6 H Plt Count 268 D MPV 10.0 Absolute Nucleated RBC 0.000 Nucleated RBC % (auto) 0.0 Sodium 144 Potassium 3.0 L Chloride 91 L Carbon Dioxide 42 H* Anion Gap 14 BUN 19 H Creatinine 1.55 H Estim Creat Clear Calc 65.2 Estimated GFR 44 POC Glucose 109 94 Random Glucose 117 H Lactic Acid 0.9 Calcium 9.4 07/21/25 07/21/25 08:01 11:54 WBC RBC Hgb Hct MCV MCH MCHC RDW Plt Count MPV Absolute Nucleated RBC Nucleated RBC % (auto) Sodium Potassium Chloride Carbon Dioxide Anion Gap BUN Creatinine Estim Creat Clear Calc Estimated GFR POC Glucose 109 112 Random Glucose Lactic Acid Calcium Progress Note: A&P Assessment and plan (1) Diastolic heart failure: Status: Acute (2) Right heart failure: Status: Acute (3) Systolic murmur: Status: Acute (4) Persistent atrial fibrillation: Status: Acute Plan 70-year-old gentleman presenting with congestive heart failure right more than left-sided failure. He was significantly volume overloaded. He has been diuresed and blood workup is clearly showing contraction alkalosis at this point in his blood pressure was low too. I think we can transition him to oral diuretics. Please start him on Bumex 2 mg twice a day orally. Continue spironolactone and rest of the medications. Would avoid metolazone currently. Significant anemia, off anticoagulation due to anemia. He has persistent Afib. If no GI work up then would favor holding the anticoagulation. Discussed with a structural colleagues about Watchman device but he favor doing GI workup to look for potential causes before considering Watchman. I will review echocardiography to reassess the ventricular function and assess the aortic valve. He has aortic stenosis murmur and in April it was thought to be mild . Thank you for allowing me to participate in the care of your patient. Please feel free to contact me if you have any questions. Time Spent With Patient Time: Total time managing care of this patient today ____ minutes. Progress Note: Quality Stroke Does the patient have a stroke diagnosis?: No Procedures Date of Service Date of Service: 07/21/25
--- NOTE | 2025-07-21 13:45 | P.PNIM_ITS ---
Subjective Subjective Date of Service: 07/21/25 Interval History: No new complaints today. The patient reports feeling well overall. Overnight events reviewed and vital signs revealing patient is hypotensive no tachycardia. Asymptomatic. Review of Systems Review of Systems: Yes all other systems are reviewed and are negative Physical Exam 2 Exam: Exam: General: A&O x3, oriented to time place person and situation, comfortable, no pain. MO habitus Cardiac: S1, S2 auscultated with no S3/4, no MRG. Well perfused. Elevated JVP bilaterally to the angle of the mandible Respiratory: decreased breath sounds auscultated throughout all lung zones, with fine crepitations at the bases bilaterally, without wheezing, rales. tachypneic, not dyspneic. On 3 L NC baseline GI/ : No abdominal pain on palpation, no masses or distentions. MSK: Normal ambulation without pain at bony prominences or musculature. Bilateral lower extremity edema 2+ to the mid spencer, with evidence of lipodermatosclerosis Neurological: Normal neurological examination on overview, without obvious CN II-XII abnormalities. Vital Signs: Vital Signs: Last Vital Signs Temp 97.2 F 07/21/25 11:27 Pulse 65 07/21/25 11:27 Resp 18 07/21/25 11:27 BP 110/64 07/21/25 11:27 Pulse Ox 95 07/21/25 11:27 O2 Del Method Nasal Cannula 07/21/25 11:27 O2 Flow Rate 3 07/21/25 11:27 Oxygen Flow Rate 4 07/13/25 19:54 BMI result Body Mass Index 56.9 Objective Data Active Medications Acetaminophen (Acetaminophen 325 Mg Tablet) 650 mg PO Q6H PRN PRN Reason: Pain, Mild 1-3,fever,headache Last Admin: 07/21/25 11:26 Dose: 650 mg Documented By: BRIDGETTE Allopurinol (Allopurinol 300 Mg Tablet) 300 mg PO BID [facility] Last Admin: 07/21/25 11:11 Dose: 300 mg Documented By: BRIDGETTE Amlodipine Besylate (Amlodipine Besylate 5 Mg Tablet) 5 mg PO DAILY [facility]; Protocol Last Admin: 07/21/25 11:13 Dose: 5 mg Documented By: BRIDGETTE Atorvastatin Calcium (Atorvastatin Calcium 40 Mg Tablet) 40 mg PO BEDTIME [facility] Last Admin: 07/20/25 20:35 Dose: 40 mg Documented By: KASHIF Benzonatate (Benzonatate 100 Mg Capsule) 100 mg PO TID PRN PRN Reason: Cough Bismuth Subsalicylate (Bismuth Subsalicylate 262 Mg Tablet) 262 mg PO QID PRN PRN Reason: Heartburn Calcium Carbonate (Calcium Carbonate 750 Mg Tab.Chew) 750 mg PO Q4H PRN PRN Reason: Heartburn Last Admin: 07/16/25 18:03 Dose: 750 mg Documented By: GOLD Dextrose (Dextrose 50 % 25 Gm/50 Ml Syringe) 25 gm IVPUSH Q15M PRN; Protocol PRN Reason: per Hypoglycemia Standing Ord. Duloxetine HCl (Duloxetine Hcl 30 Mg Capsule.) 30 mg PO BID [facility] Last Admin: 07/21/25 11:13 Dose: 30 mg Documented By: BRIDGETTE Empagliflozin (Empagliflozin 10 Mg Tablet) 10 mg PO DAILY [facility] On Hold: 07/16/25 10:41 Last Admin: 07/16/25 08:43 Dose: 10 mg Documented By: GOLD Furosemide (Furosemide 40 Mg Tablet) 40 mg PO BID@0900,1800 [facility]; Protocol Glucose (Glucose Gel 15 Gm Gel..Gram.) 15 gm PO Q15M PRN; Protocol PRN Reason: per Hypoglycemia Standing Ord. Lactated Ringer's (Lr) 1,000 mls @ 100 mls/hr IVCONT .Q10H [facility] Stop: 07/21/25 21:29 Last Admin: 07/21/25 11:34 Dose: 100 mls/hr Documented By: BRIDGETTE Insulin Human Lispro (Insulin Lispro 100 Unit/Ml 3 Ml Vial) 0 unit SUBCUT QIDACHS [facility]; Protocol Last Admin: 07/21/25 11:55 Dose: Not Given Documented By: BRIDGETTE Non-Admin Reason: No Insulin Coverage Magnesium Hydroxide (Milk Of Magnesia 30 Ml Oral.Susp) 30 ml PO DAILY PRN PRN Reason: Constipation Melatonin (Melatonin 3 Mg Tablet) 6 mg PO BEDTIME PRN PRN Reason: Insomnia Polyethylene Glycol (Polyethylene Glycol 3350 17 Gm Powd.Pack) 17 gm PO DAILY PRN PRN Reason: Constipation Potassium Chloride (Potassium Chloride Er 20 Meq Tab.Er.Prt) 20 meq PO BID [facility] Stop: 07/21/25 21:01 Sodium Chloride (0.9 % Sodium Chloride Flush 3 Ml Syringe) 3 ml IVFLUSH QSHIFT [facility] Last Admin: 07/21/25 11:10 Dose: 3 ml Documented By: BRIDGETTE Spironolactone (Spironolactone 25 Mg Tablet) 25 mg PO BID [facility]; Protocol Labs 07/21/25 05:47 07/21/25 05:47 Labs: Laboratory Results - last 24 hr 07/20/25 07/20/25 07/21/25 16:30 20:28 05:47 MCV 85.3 MCH 24.3 L MCHC 28.5 L RDW 17.6 H Plt Count 268 D MPV 10.0 Absolute Nucleated RBC 0.000 Nucleated RBC % (auto) 0.0 Anion Gap 14 Estim Creat Clear Calc 65.2 Estimated GFR 44 POC Glucose 109 94 Random Glucose 117 H Lactic Acid 0.9 Calcium 9.4 07/21/25 07/21/25 08:01 11:54 MCV MCH MCHC RDW Plt Count MPV Absolute Nucleated RBC Nucleated RBC % (auto) Anion Gap Estim Creat Clear Calc Estimated GFR POC Glucose 109 112 Random Glucose Lactic Acid Calcium Assessment and Plan (1) Diastolic heart failure: Status: Acute (2) Decompensated heart failure: Status: Acute (3) Bradycardia: Status: Acute (4) Persistent atrial fibrillation: Status: Acute (5) Right heart failure: Status: Acute (6) Hyperlipidemia: Status: Acute (7) Melena: Status: Acute (8) Acute kidney injury: Status: Acute (9) Acute on chronic anemia: Status: Acute (10) Cerebrovascular accident (CVA): Status: Acute (11) Requires continuous at home supplemental oxygen: Status: Acute (12) LALI (obstructive sleep apnea): Status: Acute Plan 69-year-old male with a past medical history of HTN, HLD, LALI on home oxygen, AFib-not on anticoagulation; morbid obesity, CKD, diastolic heart failure, CVA, diabetes presented to the hospital with a chief complaint of shortness of breath, admitted with acute symptomatic anemia 2/2 GI bleed, C/b acute on chronic HFpEF exacerbation. Acute on chronic HFpEF exacerbation Daily weights and I/O Euvolemic current Cardiology following-recommendations greatly appreciated Telemetry Lasix 40 mg IV bid - transitioned to 40 mg b.i.d. p.o. furosemide Jardiance 10mg daily and spironolactone 12.5 mg daily Has diuresed over 6L, BNP trending down Monitor on telemetry Acute on chronic Anemia likely secondary to GI bleed Minimal response to transfusion of 1 units of PRBC in the ED: hgb 6.4-->6.8 Transfused 2 additional units PRBC on 07/15 with better response Cardiology would like additional 1 unit PRBCs to maintain hct >30 Iron studies low; folate and B12 WNL; stool heme+ GI consult - plan for EGD/colonoscopy; EGD/colonoscopy was deferred due to tenuous respiratory status after evaluation with anesthesia We will consult Gastroenterology again for EGD IV ppi bid Mild FOREST on CKD Baseline creatinine around 1.31 Creatinine on presentation is 1.7. Improved to baseline post diuresis. Likely cardiorenal Monitor renal function while diuresing Bradycardia Hx of LALI Pt's HR noted to be in 30-40s while sleeping on 07/14 Improved last night to 40-50s after diuresisng Pt only on supplemental oxygen at night Had negative sleep study on 10/14/2023 Cardiology following, no indication for a pacemaker at this time Treat as above, monitor Monitor on telemetry Chronic hypoxic respiratory failure On continuous home O2 patient is on continuous home oxygen 3 L The patient is noted to be tachypneic, however not dyspneic. Patient is at his respiratory baseline currently. Impression of superimposed acute CHF exacerbation leading to patient's tenuous respiratory status. Hypertension Continue home amlodipine [id number] type 2 diabetes Insulin sliding scale Diabetic diet Chronic atrial fibrillation Patient has been on anticoagulation for atrial fibrillation. Currently on hold 2/2 melena. [id number] Score score >2 indicating need for anticoagulation. we will discuss with Cardiology regarding safe re-initiation of anticoagulation more than likely will require EGD while inpatient [facility] - VTE: Medical contraindicated-SCDs - CODE STATUS: Full code - DIET: Diabetic diet Quality Stroke Does the patient have a stroke diagnosis?: No VTE Prior VTE?: No VTE Risk Level:: Medical - moderate - high VTE Device Contraindication: N/A - Device Ordered VTE Drug Contraindication: Treatment Not Indicated
[2025-07-21] MEDS: Potassium Chloride ER 20 MEQ TAB.ER.PRT PO ×2 (14:55→19:52)
[2025-07-21 16:42] LABS: Glucose, Whole Blood 134 mg/dL (60-115)
[2025-07-21 16:57] LABS: Anion Gap 16 (12-20); Blood Urea Nitrogen 19 mg/dL (9-16); Calcium 10.0 mg/dL (8.4-10.2); Carbon Dioxide 38 mmol/L (22-29); Chloride 92 mmol/L (96-108); Creatinine Clr Calc Pharmacy 61.3; Estimated Glomerular Filt Rate 41; Potassium 3.4 mmol/L (3.3-5.1); Sodium 143 mmol/L (135-145)
[2025-07-21 20:45] LABS: Glucose, Whole Blood 120 mg/dL (60-115)
[2025-07-22] VITALS (8 sets, daily range): BP systolic 117–146; BP diastolic 58–74; PULSE 51–82; RESP 18–20; TEMP 36.1–36.7; O2SAT 92–95
[2025-07-22 07:54] LABS: Glucose, Whole Blood 100 mg/dL (60-115)
[2025-07-22 07:58] LABS: Anion Gap 12 (12-20); Blood Urea Nitrogen 20 mg/dL (9-16); Calcium 9.3 mg/dL (8.4-10.2); Carbon Dioxide 40 mmol/L (22-29); Chloride 95 mmol/L (96-108); Creatinine Clr Calc Pharmacy 67.4; Estimated Glomerular Filt Rate 46; Potassium 3.3 mmol/L (3.3-5.1); Sodium 144 mmol/L (135-145)
[2025-07-22] MEDS: 0.9 % Sodium Chloride Flush 3 ML SYRINGE IVFLUSH ×2 (08:10→17:51)
[2025-07-22 12:06] LABS: Glucose, Whole Blood 122 mg/dL (60-115)
--- NOTE | 2025-07-22 13:43 | PM.PNCARD ---
Subjective Subjective Date of Service: 07/22/25 Principal diagnosis: CHF, anemia Interval history: Seen and examined at bedside. Echocardiography has shown moderate aortic valve stenosis. Physical Exam Vital Signs: Last Vital Signs Temp 97.1 F 07/22/25 11:48 Pulse 70 07/22/25 11:48 Resp 18 07/22/25 11:48 BP 146/70 H 07/22/25 11:48 Pulse Ox 94 07/22/25 11:48 O2 Del Method Nasal Cannula 07/22/25 11:48 O2 Flow Rate 3 07/22/25 11:48 Oxygen Flow Rate 4 07/13/25 19:54 BMI result Body Mass Index 56.9 GENERAL APPEARANCE: Morbidly obese. On supplemental oxygen. NECK: no carotid bruit, no significant jugular venous distention. SKIN: no suspicious lesions, warm and dry. HEART: Systolic murmur-grade 2/6, irregular rate and rhythm. LUNGS: Right basilar crackles. ABDOMEN: soft, nontender. EXTREMITIES: + edema. PERIPHERAL PULSES: equal. NEUROLOGIC: No gross deficits, AAO X 3 Objective Labs and Meds 07/21/25 05:47 07/22/25 06:48 Lab results: Laboratory Results - last 24 hr 07/21/25 07/21/25 07/21/25 16:28 16:35 20:41 Sodium 143 Potassium 3.4 Chloride 92 L Carbon Dioxide 38 H Anion Gap 16 BUN 19 H Creatinine 1.65 H Estim Creat Clear Calc 61.3 Estimated GFR 41 POC Glucose 134 H 120 H Random Glucose 127 H Calcium 10.0 D 07/22/25 07/22/25 07/22/25 06:48 07:50 11:59 Sodium 144 Potassium 3.3 Chloride 95 L Carbon Dioxide 40 H* Anion Gap 12 BUN 20 H Creatinine 1.50 H Estim Creat Clear Calc 67.4 Estimated GFR 46 POC Glucose 100 122 H Random Glucose 103 Calcium 9.3 D Progress Note: A&P Assessment and plan (1) Diastolic heart failure: Status: Acute (2) Right heart failure: Status: Acute (3) Systolic murmur: Status: Acute (4) Persistent atrial fibrillation: Status: Acute Plan 70-year-old gentleman presenting with congestive heart failure right more than left-sided failure. He was significantly volume overloaded. He has been diuresed and blood workup is clearly showing contraction alkalosis at this point in his blood pressure was low too. I think we can transition him to oral diuretics. Please start him on Bumex 2 mg twice a day orally. Continue spironolactone and rest of the medications. Would avoid metolazone currently. Significant anemia, off anticoagulation due to anemia. He has persistent Afib. If no GI work up then would favor holding the anticoagulation. Discussed with a structural colleagues about Watchman device but he favor doing GI workup to look for potential causes before considering Watchman. Echocardiography is showing moderate aortic valve stenosis, low-normal left ventricular ejection fraction, [id number] RV dilatation with moderate RV dysfunction. He will need surveillance for the aortic stenosis and we will repeat echocardiography in 6 months. Thank you for allowing me to participate in the care of your patient. Please feel free to contact me if you have any questions. Time Spent With Patient Time: Total time managing care of this patient today ____ minutes. Progress Note: Quality Stroke Does the patient have a stroke diagnosis?: No Procedures Date of Service Date of Service: 07/22/25
[2025-07-22 16:00] LABS: Glucose, Whole Blood 144 mg/dL (60-115)
--- NOTE | 2025-07-22 16:46 | P.PNIM_ITS ---
Subjective Subjective Date of Service: 07/22/25 Interval History: Feels well overall. No new complaints or issues. Creatinine has been improving since holding IV furosemide yesterday. Remains on p.o. furosemide. Plan for possible EGD/colonoscopy tomorrow to evaluate for etiology of GI bleeding Has not had GI bleeding since. Review of Systems Review of Systems: Yes all other systems are reviewed and are negative Physical Exam 2 Exam: Exam: General: A&O x3, oriented to time place person and situation, comfortable, no pain. MO habitus Cardiac: S1, S2 auscultated with no S3/4, no MRG. Well perfused. Elevated JVP bilaterally to the angle of the mandible Respiratory: decreased breath sounds auscultated throughout all lung zones, with fine crepitations at the bases bilaterally, without wheezing, rales. tachypneic, not dyspneic. On 3 L NC baseline GI/ : No abdominal pain on palpation, no masses or distentions. MSK: Normal ambulation without pain at bony prominences or musculature. Bilateral lower extremity edema 2+ to the mid spencer, with evidence of lipodermatosclerosis Neurological: Normal neurological examination on overview, without obvious CN II-XII abnormalities. Vital Signs: Vital Signs: Last Vital Signs Temp 97.2 F 07/22/25 15:45 Pulse 52 07/22/25 15:45 Resp 18 07/22/25 15:45 BP 130/58 L 07/22/25 15:45 Pulse Ox 94 07/22/25 15:45 O2 Del Method Nasal Cannula 07/22/25 15:45 O2 Flow Rate 3 07/22/25 15:45 Oxygen Flow Rate 4 07/13/25 19:54 BMI result Body Mass Index 56.9 Objective Data Active Medications Acetaminophen (Acetaminophen 325 Mg Tablet) 650 mg PO Q6H PRN PRN Reason: Pain, Mild 1-3,fever,headache Last Admin: 07/22/25 09:52 Dose: 650 mg Documented By: JOSE Allopurinol (Allopurinol 300 Mg Tablet) 300 mg PO BID [facility] Last Admin: 07/22/25 08:10 Dose: 300 mg Documented By: JOSE Amlodipine Besylate (Amlodipine Besylate 5 Mg Tablet) 5 mg PO DAILY [facility]; Protocol Last Admin: 07/22/25 08:10 Dose: 5 mg Documented By: JOSE Atorvastatin Calcium (Atorvastatin Calcium 40 Mg Tablet) 40 mg PO BEDTIME [facility] Last Admin: 07/21/25 19:52 Dose: 40 mg Documented By: KASHIF Benzonatate (Benzonatate 100 Mg Capsule) 100 mg PO TID PRN PRN Reason: Cough Bismuth Subsalicylate (Bismuth Subsalicylate 262 Mg Tablet) 262 mg PO QID PRN PRN Reason: Heartburn Calcium Carbonate (Calcium Carbonate 750 Mg Tab.Chew) 750 mg PO Q4H PRN PRN Reason: Heartburn Last Admin: 07/16/25 18:03 Dose: 750 mg Documented By: GOLD Dextrose (Dextrose 50 % 25 Gm/50 Ml Syringe) 25 gm IVPUSH Q15M PRN; Protocol PRN Reason: per Hypoglycemia Standing Ord. Duloxetine HCl (Duloxetine Hcl 30 Mg Capsule.Dr) 30 mg PO BID [facility] Last Admin: 07/22/25 08:10 Dose: 30 mg Documented By: JOSE Empagliflozin (Empagliflozin 10 Mg Tablet) 10 mg PO DAILY [facility] On Hold: 07/16/25 10:41 Last Admin: 07/16/25 08:43 Dose: 10 mg Documented By: GOLD Furosemide (Furosemide 40 Mg Tablet) 40 mg PO BID@0900,1800 [facility]; Protocol Last Admin: 07/22/25 08:10 Dose: 40 mg Documented By: JOSE Glucose (Glucose Gel 15 Gm Gel..Gram.) 15 gm PO Q15M PRN; Protocol PRN Reason: per Hypoglycemia Standing Ord. Insulin Human Lispro (Insulin Lispro 100 Unit/Ml 3 Ml Vial) 0 unit SUBCUT QIDACHS [facility]; Protocol Last Admin: 07/22/25 16:24 Dose: Not Given Documented By: JOSE Non-Admin Reason: No Insulin Coverage Magnesium Hydroxide (Milk Of Magnesia 30 Ml Oral.Susp) 30 ml PO DAILY PRN PRN Reason: Constipation Melatonin (Melatonin 3 Mg Tablet) 6 mg PO BEDTIME PRN PRN Reason: Insomnia Nystatin (Nystatin Powder 15 Gm Bottle) 1 appl TOPICAL BID [facility]; Protocol Last Admin: 07/22/25 10:47 Dose: Not Given Documented By: JOSE Non-Admin Reason: Previously Administered Polyethylene Glycol (Polyethylene Glycol 3350 17 Gm Powd.Pack) 17 gm PO DAILY PRN PRN Reason: Constipation Sodium Chloride (0.9 % Sodium Chloride Flush 3 Ml Syringe) 3 ml IVFLUSH QSHIFT [facility] Last Admin: 07/22/25 08:10 Dose: 3 ml Documented By: JOSE Spironolactone (Spironolactone 25 Mg Tablet) 25 mg PO BID [facility]; Protocol Last Admin: 07/22/25 08:10 Dose: 25 mg Documented By: JOSE Labs 07/21/25 05:47 07/22/25 06:48 Labs: Laboratory Results - last 24 hr 07/21/25 07/21/25 07/22/25 16:28 20:41 06:48 Anion Gap 16 12 Estim Creat Clear Calc 61.3 67.4 Estimated GFR 41 46 POC Glucose 120 H Random Glucose 127 H 103 Calcium 10.0 D 9.3 D 07/22/25 07/22/25 07/22/25 07:50 11:59 15:52 Anion Gap Estim Creat Clear Calc Estimated GFR POC Glucose 100 122 H 144 H Random Glucose Calcium Assessment and Plan (1) Diastolic heart failure: Status: Acute (2) Decompensated heart failure: Status: Acute (3) Bradycardia: Status: Acute (4) Persistent atrial fibrillation: Status: Acute (5) Hyperlipidemia: Status: Acute (6) Melena: Status: Acute (7) Acute kidney injury: Status: Acute (8) Acute on chronic anemia: Status: Acute (9) Cerebrovascular accident (CVA): Status: Acute (10) Requires continuous at home supplemental oxygen: Status: Acute (11) LALI (obstructive sleep apnea): Status: Acute Plan 69-year-old male with a past medical history of HTN, HLD, LALI on home oxygen, AFib-not on anticoagulation; morbid obesity, CKD, diastolic heart failure, CVA, diabetes presented to the hospital with a chief complaint of shortness of breath, admitted with acute symptomatic anemia 2/2 GI bleed, C/b acute on chronic HFpEF exacerbation. Acute on chronic HFpEF exacerbation Daily weights and I/O Euvolemic current Cardiology following-recommendations greatly appreciated Telemetry Transitioned to 40 mg b.i.d. p.o. furosemide Jardiance 10mg daily and spironolactone 12.5 mg daily Has diuresed over 6L, BNP trending down Monitor on telemetry Acute on chronic Anemia likely secondary to GI bleed Minimal response to transfusion of 1 units of PRBC in the ED: hgb 6.4-->6.8 Transfused 2 additional units PRBC on 07/15 with better response Cardiology would like additional 1 unit PRBCs to maintain hct >30 Iron studies low; folate and B12 WNL; stool heme+ GI consult - plan for EGD/colonoscopy; EGD/colonoscopy was deferred due to tenuous respiratory status after evaluation with anesthesia We will consult Gastroenterology/ Anesthesia again for EGD IV ppi bid Mild FOREST on CKD Baseline creatinine around 1.31 Creatinine on presentation is 1.7. Improved to baseline post diuresis. Likely cardiorenal Monitor renal function while diuresing Bradycardia Hx of LALI Pt's HR noted to be in 30-40s while sleeping on 07/14 Improved last night to 40-50s after diuresisng Pt only on supplemental oxygen at night Had negative sleep study on 10/14/2023 Cardiology following, no indication for a pacemaker at this time Treat as above, monitor Monitor on telemetry Chronic hypoxic respiratory failure On continuous home O2 patient is on continuous home oxygen 3 L The patient is noted to be tachypneic, however not dyspneic. Patient is at his respiratory baseline currently. Impression of superimposed acute CHF exacerbation leading to patient's tenuous respiratory status. Hypertension Continue home amlodipine Wxz-jzfrjas-[id number] type 2 diabetes Insulin sliding scale Diabetic diet Chronic atrial fibrillation Patient has been on anticoagulation for atrial fibrillation. Currently on hold 2/2 melena. [id number] Score score >2 indicating need for anticoagulation. we will discuss with Cardiology regarding safe re-initiation of anticoagulation more than likely will require EGD while inpatient [facility] - VTE: Medical contraindicated-SCDs - CODE STATUS: Full code - DIET: Diabetic diet Total time managing care of this patient today: 35 minutes. Quality Stroke Does the patient have a stroke diagnosis?: No VTE Prior VTE?: No VTE Risk Level:: Medical - moderate - high VTE Device Contraindication: N/A - Device Ordered VTE Drug Contraindication: Treatment Not Indicated
[2025-07-22 21:39] LABS: Glucose, Whole Blood 125 mg/dL (60-115)
[2025-07-23] VITALS (9 sets, daily range): BP systolic 111–135; BP diastolic 55–62; PULSE 52–75; RESP 16–18; TEMP 36.2–36.4; O2SAT 78–100
[2025-07-23] MEDS: 0.9 % Sodium Chloride Flush 3 ML SYRINGE IVFLUSH ×4 (00:26→21:09)
[2025-07-23 07:47] LABS: Glucose, Whole Blood 105 mg/dL (60-115)
--- NOTE | 2025-07-23 10:57 | MHC.CM.PN ---
Per MD in [facility], anticipate Patient may be medically cleared for dc tomorrow; CM has asked [facility] to initiate insurance auth. CM will follow.
[2025-07-23 11:21] LABS: Glucose, Whole Blood 102 mg/dL (60-115)
[2025-07-23 15:46] LABS: Glucose, Whole Blood 135 mg/dL (60-115)
--- NOTE | 2025-07-23 17:34 | P.PNIM_ITS ---
Subjective Subjective Date of Service: 07/24/25 Interval History: He's feeling better, no new issues, no sob, no bleeding H/h is stable. Review of Systems Review of Systems: Yes all other systems are reviewed and are negative Physical Exam 2 Exam: Exam: General: A&O x3, oriented to time place person and situation, comfortable, no pain. MO habitus Cardiac: S1, S2 auscultated with no S3/4, no MRG. Well perfused. Elevated JVP bilaterally to the angle of the mandible Respiratory: decreased breath sounds auscultated throughout all lung zones, with fine crepitations at the bases bilaterally, without wheezing, rales. tachypneic, not dyspneic. On 3 L NC baseline GI/ : No abdominal pain on palpation, no masses or distentions. MSK: Normal ambulation without pain at bony prominences or musculature. Bilateral lower extremity edema 2+ to the mid spencer, with evidence of lipodermatosclerosis Neurological: Normal neurological examination on overview, without obvious CN II-XII abnormalities. Vital Signs: Vital Signs: Last Vital Signs Temp 97.5 F 07/23/25 16:00 Pulse 61 07/23/25 16:00 Resp 18 07/23/25 16:00 BP 111/60 07/23/25 16:00 Pulse Ox 100 07/23/25 16:00 O2 Del Method Nasal Cannula 07/23/25 16:00 O2 Flow Rate 3 07/23/25 16:00 Oxygen Flow Rate 4 07/13/25 19:54 BMI result Body Mass Index 56.9 Objective Data Active Medications Acetaminophen (Acetaminophen 325 Mg Tablet) 650 mg PO Q6H PRN PRN Reason: Pain, Mild 1-3,fever,headache Last Admin: 07/23/25 16:29 Dose: 650 mg Documented By: RORY Allopurinol (Allopurinol 300 Mg Tablet) 300 mg PO BID [facility] Last Admin: 07/23/25 11:30 Dose: 300 mg Documented By: RORY Amlodipine Besylate (Amlodipine Besylate 5 Mg Tablet) 5 mg PO DAILY [facility]; Protocol Last Admin: 07/23/25 11:31 Dose: 5 mg Documented By: RORY Atorvastatin Calcium (Atorvastatin Calcium 40 Mg Tablet) 40 mg PO BEDTIME [facility] Last Admin: 07/22/25 21:33 Dose: 40 mg Documented By: LALITHA Benzonatate (Benzonatate 100 Mg Capsule) 100 mg PO TID PRN PRN Reason: Cough Bismuth Subsalicylate (Bismuth Subsalicylate 262 Mg Tablet) 262 mg PO QID PRN PRN Reason: Heartburn Calcium Carbonate (Calcium Carbonate 750 Mg Tab.Chew) 750 mg PO Q4H PRN PRN Reason: Heartburn Last Admin: 07/16/25 18:03 Dose: 750 mg Documented By: GOLD Dextrose (Dextrose 50 % 25 Gm/50 Ml Syringe) 25 gm IVPUSH Q15M PRN; Protocol PRN Reason: per Hypoglycemia Standing Ord. Duloxetine HCl (Duloxetine Hcl 30 Mg Capsule.) 30 mg PO BID [facility] Last Admin: 07/23/25 11:31 Dose: 30 mg Documented By: RORY Empagliflozin (Empagliflozin 10 Mg Tablet) 10 mg PO DAILY [facility] On Hold: 07/16/25 10:41 Last Admin: 07/16/25 08:43 Dose: 10 mg Documented By: GOLD Furosemide (Furosemide 40 Mg Tablet) 40 mg PO BID@0900,1800 [facility]; Protocol Last Admin: 07/23/25 11:30 Dose: 40 mg Documented By: RORY Glucose (Glucose Gel 15 Gm Gel..Gram.) 15 gm PO Q15M PRN; Protocol PRN Reason: per Hypoglycemia Standing Ord. Insulin Human Lispro (Insulin Lispro 100 Unit/Ml 3 Ml Vial) 0 unit SUBCUT QIDACHS [facility]; Protocol Last Admin: 07/23/25 15:55 Dose: Not Given Documented By: RORY Non-Admin Reason: No Insulin Coverage Magnesium Hydroxide (Milk Of Magnesia 30 Ml Oral.Susp) 30 ml PO DAILY PRN PRN Reason: Constipation Melatonin (Melatonin 3 Mg Tablet) 6 mg PO BEDTIME PRN PRN Reason: Insomnia Nystatin (Nystatin Powder 15 Gm Bottle) 1 appl TOPICAL BID [facility]; Protocol Last Admin: 07/23/25 08:39 Dose: 1 appl Documented By: RORY Polyethylene Glycol (Polyethylene Glycol 3350 17 Gm Powd.Pack) 17 gm PO DAILY PRN PRN Reason: Constipation Sodium Chloride (0.9 % Sodium Chloride Flush 3 Ml Syringe) 3 ml IVFLUSH QSHIFT [facility] Last Admin: 07/23/25 11:32 Dose: 3 ml Documented By: RORY Spironolactone (Spironolactone 25 Mg Tablet) 25 mg PO BID [facility]; Protocol Last Admin: 07/23/25 11:31 Dose: 25 mg Documented By: RORY Labs 07/21/25 05:47 07/22/25 06:48 Labs: Laboratory Results - last 24 hr 07/22/25 07/23/25 07/23/25 21:31 07:05 11:15 POC Glucose 125 H 105 102 07/23/25 15:43 POC Glucose 135 H Assessment and Plan (1) Diastolic heart failure: Status: Acute (2) Decompensated heart failure: Status: Acute (3) Bradycardia: Status: Acute (4) Persistent atrial fibrillation: Status: Acute (5) Hyperlipidemia: Status: Acute (6) Melena: Status: Acute (7) Acute kidney injury: Status: Acute (8) Acute on chronic anemia: Status: Acute (9) Cerebrovascular accident (CVA): Status: Acute (10) Requires continuous at home supplemental oxygen: Status: Acute (11) LALI (obstructive sleep apnea): Status: Acute Plan 69-year-old male with a past medical history of HTN, HLD, LALI on home oxygen, AFib-not on anticoagulation; morbid obesity, CKD, diastolic heart failure, CVA, diabetes presented to the hospital with a chief complaint of shortness of breath, admitted with acute symptomatic anemia 2/2 GI bleed, C/b acute on chronic HFpEF exacerbation. Acute on chronic HFpEF exacerbation clinically appear compensated, continue current care (lasix, aldactone, jardiance) Acute on chronic Anemia likely secondary to GI bleed Minimal response to transfusion of 1 units of PRBC in the ED: hgb 6.4-->6.8 Transfused 3 additional units PRBC on 07/15 with better response and remains stable Iron studies low; folate and B12 WNL; stool heme+ GI consult - plan for EGD/colonoscopy; EGD/colonoscopy was deferred due to tenuous respiratory status after evaluation with anesthesia and deemed high, so endoscopy/colonoscopy will be defered for now and probably done on outpatient basis. can be on PO ppi Mild FOREST on CKD Baseline creatinine around 1.3, now 1.5. Likely cardiorenal Monitor renal function while diuresing Bradycardia Hx of LALI improved Chronic hypoxic respiratory failure On continuous home O2 stable, ? outpatient sleep study Hypertension Continue home amlodipine Zvu-[id number]-vswqwowki type 2 diabetes Insulin sliding scale Diabetic diet Chronic atrial fibrillation anticoagulation on hold d/t gi bleeding - QUALITY METRICS - VTE: Medical contraindicated-SCDs - CODE STATUS: Full code - DIET: Diabetic diet Total time managing care of this patient today: 35 minutes. Quality Stroke Does the patient have a stroke diagnosis?: No VTE Prior VTE?: No VTE Risk Level:: Medical - moderate - high VTE Device Contraindication: N/A - Device Ordered VTE Drug Contraindication: Treatment Not Indicated
[2025-07-23 20:09] LABS: Glucose, Whole Blood 120 mg/dL (60-115)
[2025-07-23] MEDS: Bismuth Subsalicylate 262 MG TABLET PO (23:04)
[2025-07-24 03:20] VITALS: BP 117/58; PULSE 63; RESP 18; TEMP 36.3; O2SAT 94
[2025-07-24 07:28] LABS: Glucose, Whole Blood 106 mg/dL (60-115)
[2025-07-24 07:57] VITALS: BP 134/72; PULSE 55; RESP 18; TEMP 36.9; O2SAT 95
[2025-07-24] MEDS: 0.9 % Sodium Chloride Flush 3 ML SYRINGE IVFLUSH ×3 (08:49→21:31)
[2025-07-24 11:20] LABS: Glucose, Whole Blood 122 mg/dL (60-115)
[2025-07-24 11:58] VITALS: BP 123/72; PULSE 54; RESP 18; TEMP 36.9; O2SAT 96
--- NOTE | 2025-07-24 12:14 | HO.WOUND ---
Wound Consult: Initial 70 yr old [place] [facility] [place] See progress notes and H&P for detailed history. Wound consult placed for left posterior thigh. Patient agreeable to assessment and photo documentation. Patient sitting in chair, able to assess thigh from where patient is sitting. patient reports previous skin injury to the area. Left posterior thigh Etiology: healed skin injury Wound Bed: intact scar tissue with blanchable pink/purple hues Drainage / Odor: none Cass wound: ? No Induration, Fluctuance or Warmth noted Pain: none Goals of Treatment: ? offloading, moisture management Recommendations: 1. Turn and Reposition every 2 hours and as needed for patient comfort. Use pillows or wedges to support off loading positions. 2. Off Load all bony prominences with use of pillows and heel boots if needed. Apply Preventative foams where needed. 3. Monitor for incontinence and moisture control, use barrier creams when needed for prevention and treatment. 4. Provide adequate and supplemental nutrition. 5. Order or Continue low air loss mattress. 6. When applicable maintain blood glucose levels per Providers order. Left posterior thigh: Off Load Pressure with Q2 hr turns and use of pillows - Cleanse with PH balance spray or wipes, pat dry. ?Apply thin layer of barrier cream to affected area. Apply twice daily and Reapply thin layer PRN after each episode of incontinence. Re-consult wound care Nurse for wound deterioration or wound changes.
[2025-07-24 15:51] LABS: Glucose, Whole Blood 129 mg/dL (60-115)
[2025-07-24 16:00] VITALS: BP 119/53; PULSE 53; RESP 17; TEMP 36.3; O2SAT 97
[2025-07-24 20:00] VITALS: BP 125/58; PULSE 55; RESP 20; TEMP 36.3; O2SAT 94
[2025-07-24 20:50] LABS: Glucose, Whole Blood 136 mg/dL (60-115)
[2025-07-24 21:28] VITALS: BP 129/62
[2025-07-25] VITALS: BP 118/58; PULSE 64; RESP 20; TEMP 36.2; O2SAT 96
[2025-07-25 04:00] VITALS: BP 137/64; PULSE 64; RESP 20; TEMP 36.1; O2SAT 93
[2025-07-25 07:56] LABS: Glucose, Whole Blood 107 mg/dL (60-115)
[2025-07-25 08:00] VITALS: BP 132/69; PULSE 53; RESP 16; TEMP 36.2; O2SAT 93
--- NOTE | 2025-07-25 08:30 | MHC.CM.PN ---
Addendum entered by Eveline Orellana RN 07/25/25 14:04: CM RECEIVED RESPONSE FROM [facility] WHO ARE ACCEPTING AND WILL PROVIDE HOME SERVICES FOR PT. Addendum entered by Eveline Orellana RN 07/25/25 09:39: PT DECLINING STR HE IS DOING MUCH BETTER, PT AGREEABLE TO [facility] SERVICES, [facility] REF EXPANDED D/T NO RESPONSE FROM [facility], PT WILL CONTACT HIS /HCP [facility] FOR [facility]. Original Note: ANTIC PT WILL DC TO STR AT [facility] PENDING [facility] FOR BLS TRANSPORT
[2025-07-25 08:33] LABS: Hematocrit 34.8 % (42.0-52.0); Hemoglobin 10.1 g/dl (14.0-18.0); Mean Corpuscular HGB Conc 29.0 g/dl (31.0-36.0); Mean Corpuscular Hemoglobin 24.6 pg (27.0-33.0); Mean Corpuscular Volume 84.7 fL (80.0-98.0); NRBC Abs Auto 0.000 X10*3/uL (0.0-0.012); NRBC Pct Auto 0.0 /100WBC (0.0-0.2); Platelet Count 286 X10*3/uL (160-400); Red Blood Count 4.11 X10*6/uL (4.60-5.80); White Blood Count 8.9 X10*3/uL (4.8-10.8)
[2025-07-25 08:46] LABS: Anion Gap 14 (12-20); Blood Urea Nitrogen 28 mg/dL (9-16); Calcium 9.9 mg/dL (8.4-10.2); Carbon Dioxide 38 mmol/L (22-29); Chloride 96 mmol/L (96-108); Creatinine Clr Calc Pharmacy 64.0; Estimated Glomerular Filt Rate 43; Potassium 3.8 mmol/L (3.3-5.1); Sodium 144 mmol/L (135-145)
[2025-07-25] MEDS: 0.9 % Sodium Chloride Flush 3 ML SYRINGE IVFLUSH (09:01)
[2025-07-25 11:21] LABS: Glucose, Whole Blood 119 mg/dL (60-115)
[2025-07-25 11:49] VITALS: BP 134/72; PULSE 54; RESP 18; TEMP 36.1; O2SAT 93
[2025-07-25 13:17] VITALS: O2SAT 85
--- NOTE | 2025-07-25 13:35 | P.DS_ITS ---
DS: Providers Provider Date of Service: 07/25/25 Date of admission: 07/13/25 22:21 Date of discharge: 07/25/25 Primary care physician: LOAN AlejandroP- Consults: 07/13/25 22:21 Consult to Cardiology Routine Consulting Provider: [facility] [facility] Reason for consultation: chf Consult to Gastroenterology Routine Consulting Provider: [facility] Mateo Hernandez Reason for consultation: melena 07/22/25 16:53 Consult to Gastroenterology Routine Consulting Provider: [facility] Mateo Hernandez Reason for consultation: stable for EGD - diuresed 07/23/25 19:24 Consult to Wound Care Routine Reason for consultation: DTI? MASD back of L thigh DS: Diagnosis Discharge Diagnosis (1) Diastolic heart failure: Status: Acute (2) Decompensated heart failure: Status: Acute (3) Bradycardia: Status: Acute (4) Persistent atrial fibrillation: Status: Acute (5) Hyperlipidemia: Status: Acute (6) Melena: Status: Acute (7) Acute kidney injury: Status: Acute (8) Acute on chronic anemia: Status: Acute (9) Cerebrovascular accident (CVA): Status: Acute (10) Requires continuous at home supplemental oxygen: Status: Acute (11) LALI (obstructive sleep apnea): Status: Acute DS: Summary Hospital Course Hospital Course: 69-year-old male with a history of hypertension, hyperlipidemia, LALI on home oxygen, atrial fibrillation (not on anticoagulation), morbid obesity, CKD, diastolic heart failure (HFpEF), prior CVA, and diabetes, presented with shortness of breath. He was admitted for acute symptomatic anemia secondary to GI bleed, complicated by acute on chronic HFpEF exacerbation. Hospital Course: 1. Acute on Chronic HFpEF Exacerbation: Patient presented with symptoms of heart failure exacerbation. He was treated with IV Lasix later changed to PO, and presently clinically compensatedd and will be transitioned by to oral Bumex home regimen. Additional medication management include furosemide, spironolactone, and Jardiance. To avoid excessive water intake, salt intake to weight self daily and ahere to medication recommendation. 2. Acute on Chronic Anemia, Likely Secondary to GI Bleed: Initial hemoglobin was 6.4 g/dL with minimal response to 1 unit PRBC transfusion in the ED (Hgb 6.8). Received 3 additional units of PRBC on 07/15 with improved response and stable hemoglobin thereafter. Iron studies were low; folate and B12 were within normal limits. Stool was heme positive. GI was consulted; EGD and colonoscopy were deferred due to high anesthesia risk and tenuous respiratory status. Outpatient endoscopic evaluation is planned. Started on oral PPI. 3. Mild FOREST on CKD:Baseline creatinine ?1.3 mg/dL, peaked at 1.5 mg/dL, likely cardiorenal. Renal function monitored during diuresis; creatinine remained stable. 4. Bradycardia / LALI:History of LALI and bradycardia, both improved during admission. Remains on home oxygen. Outpatient sleep study may be considered. 5. Chronic Hypoxic Respiratory Failure:Stable on home oxygen therapy. 6. Hypertension:Continued home amlodipine. 7. Type 2 Diabetes Mellitus (Non-Insulin Dependent): Managed with sliding scale insulin and diabetic diet during admission. At home on Metformin, however dur to creatine being above 1.5 will change to po glipizide at 2.5 bid 8. Chronic Atrial Fibrillation: Not on anticoagulation due to bleeding risk and prior anemia, he understand risk of stroke being high without anticoagulation which predate hospitalization. Dispo: was offered rehab however he declined in favor of going home with [facility] Time Attestation Discharge Coordination Time (in mins): 45 Quality: Safe Use of Opioids Does Pt have an Active Cancer Diagnosis on the Problem List?: No Quality: Stroke Does the patient have a stroke diagnosis?: No Physical Exam Vital Signs: Vital Signs: Last Vital Signs Temp 96.9 F 07/25/25 11:49 Pulse 54 07/25/25 11:49 Resp 18 07/25/25 11:49 BP 134/72 07/25/25 11:49 Pulse Ox 85 L 07/25/25 13:17 O2 Del Method Nasal Cannula 07/25/25 11:49 O2 Flow Rate 3 07/25/25 11:49 Oxygen Flow Rate 4 07/13/25 19:54 BMI result Body Mass Index 56.9 DS: Data Data Completed and Pending Completed studies during hospitalization [Text1]: Procedures Assistance with Respiratory Ventilation, Less than 24 Consecutive Hours, Continuous Positive Airway Pressure (05/25/25) Introduction of Vasopressor into Peripheral Vein, Percutaneous Approach (10/26/24) Respiratory Ventilation, Less than 24 Consecutive Hours (10/26/24) Labs on day of discharge: Laboratory Results - last 24 hr 07/24/25 07/24/25 07/25/25 15:47 20:36 07:53 WBC RBC Hgb Hct MCV MCH MCHC RDW Plt Count MPV Absolute Nucleated RBC Nucleated RBC % (auto) Sodium Potassium Chloride Carbon Dioxide Anion Gap BUN Creatinine Estim Creat Clear Calc Estimated GFR POC Glucose 129 H 136 H 107 Random Glucose Calcium 07/25/25 07/25/25 07/25/25 08:19 08:20 10:58 WBC 8.9 RBC 4.11 L Hgb 10.1 L Hct 34.8 L MCV 84.7 MCH 24.6 L MCHC 29.0 L RDW 17.5 H Plt Count 286 MPV 9.6 Absolute Nucleated RBC 0.000 Nucleated RBC % (auto) 0.0 Sodium 144 Potassium 3.8 Chloride 96 Carbon Dioxide 38 H Anion Gap 14 BUN 28 H Creatinine 1.58 H Estim Creat Clear Calc 64.0 Estimated GFR 43 POC Glucose 119 H Random Glucose 112 Calcium 9.9 D Discharge Plan Discharge Anticipated Discharge Date/Time: 07/25/25 13:44 Patient Disposition: Home Health Service Discharge Diagnosis: Heart failure Referrals: [facility] [place] [facility] [Other] - 1 Week Referral Note: Please call [phone] to book free shuttle for appt's at [facility] as soon as you book your shuttle as soon as you know your appt's. FREE MEDICAL EQUIPMENT [Other] - 1 Week Referral Note: [facility] [place] [facility] MEDICAL EQUIPMENT TO USE LONG YOU NEED EVERY WEDNESDAY FROM 9AM-12PM, PLEASE ARRIVE BY 11:30AM AT THE LATEST. [facility] [Outside] - 1 Week Referral Note: Dylan Monahan MD [Physician, Gastroenterology] - 1 Week Referral Note: assess for EGD Hernandez Jameson, NITRATOR OPERATOR- [Primary Care Provider, Internal Medicine] - 1 Week Discharge Medications: New glipizide 2.5 mg tablet 2.5 mg PO DAILY Qty: 90 0RF Continued (DME) oxygen continuous 2-3L/min-pt needs portable tanks-appropriate # to allow him to attend appts. See Rx Instructions .Route .MEDSUPPLY Qty: 1 0RF Rx Instructions: As directed duloxetine 30 mg capsule,delayed release(DR/EC) 30 mg PO BID Qty: 180 1RF allopurinol 300 mg tablet 300 mg PO BID 90 Days Qty: 180 1RF atorvastatin [Lipitor] 40 mg tablet 40 mg PO BEDTIME Qty: 30 2RF amlodipine 5 mg Tablet 5 mg PO DAILY Qty: 30 0RF Protocol: Hold for SBP< HOLD for SBP < : 90 bumetanide 1 mg tablet 1 mg PO BID Protocol: Hold for SBP< HOLD for SBP < : 90 Discontinued metformin 500 mg tablet 500 mg PO BID Qty: 180 1RF Discharge Orders: Discharge Order (Routine); Ordered 07/25/25 Ordered By: Sorin Chery Diet: Diabetic diet Activity on Discharge: As tolerated Stand Alone Forms: Patient Portal Discharge page Print Language: [place]ese Care Plan Goals: recovery from heart failure and a Health Concerns: Stabilize heart failure and anemia, prevent further GI bleeding, optimize management of comorbidities (CKD, diabetes, hypertension, LALI, atrial fibrillation), and arrange for safe outpatient follow-up and diagnostic evaluation to reduce risk of readmission and improve overall functional status. Plan of Treatment: Continue heart failure medications and diuretics. Take all your medications as directed Note that Metformin is stopped and replaced with Outpatient follow-up with primary care, cardiology, nephrology, and GI . Assessment: see above
--- NOTE | 2025-07-25 14:07 | HO.WOUND ---
Wound Consult: Follow up 70 yr old male admitted to [facility] [place] on 07/13/25- See progress notes and H&P for detailed history. Wound consult initally placed for left posterior thigh. Direct care staff reports concerns with skin to buttocks/posterior thighs. Patient agreeable to assessment and photo documentation. Patient sitting in chair, able to stand for assessment, difficult to obtain photo. Left posterior thigh 07/24/25 Etiology: healed skin injury Wound Bed: intact scar tissue with blanchable pink/purple hues Drainage / Odor: none Cass wound: ? No Induration, Fluctuance or Warmth noted Pain: none Goals of Treatment: ? offloading, moisture management Gluteal fold/posterior upper thighs Etiology: MASD Wound Bed: gluteal with moist mirrored pink skin in fold. posterior thighs with pink moist skin scattered superficial openings Drainage / Odor: Edges: ? Cass wound: ? No Induration, Fluctuance or Warmth noted Pain: Goals of Treatment: ? triad paste for moisture barrier of note, patient with intertriginous dermatitis to abdominal folds- antifungal and interdry in place Recommendations: 1. Turn and Reposition every 2 hours and as needed for patient comfort. Use pillows or wedges to support off loading positions. 2. Off Load all bony prominences with use of pillows and heel boots if needed. Apply Preventative foams where needed. 3. Monitor for incontinence and moisture control, use barrier creams when needed for prevention and treatment. 4. Provide adequate and supplemental nutrition. 5. Order or Continue low air loss mattress. 6. When applicable maintain blood glucose levels per Providers order. Buttocks/posterior thighs: Off Load Pressure with Q2 hr turns and use of pillows - Cleanse with PH balance spray or wipes, pat dry. ?Apply thin layer of Triad to wound bed - only pat and dab no scrub and rub when soiling occurs. Reapply thin layer PRN after each episode of incontinence. Re-consult wound care Nurse for wound deterioration or wound changes.
--- NOTE | 2025-07-25 14:21 | P.F2F_ITS ---
Service Date Service Date: 07/25/25 Encounter Date of encounter: 07/25/25 Reasons for Services Signs and symptoms assessed: heart failure with sob, anemia Reason for senior living: medication management, medication treatment and teach disease management Reason for physical therapy: therapeutic exercises and energy conservation Homebound: Leaving the home is medically contraindicated at this time without the asist of a device and/or another person due th the listed conditions above and below. Reason homebound: shortness of breath with minimal effort and weakness related to hospital stay Homebound supporting statement: Patient is homebound due to severe weakness, chronic hypoxic respiratory failure requiring continuous home oxygen, and limited mobility following recent hospitalization for heart failure and anemia. He is unable to leave home without considerable effort or assistance. Certification: Based on the above findings, I certify that this patient is confined to the home and needs intermittent senior living care, physical therapy and/or speech therapy, or continues to need occupational therapy. The patient is under my care, and I have initiated the establishment of the plan of care. The patient will be followed by a physician who will periodically review the plan of care. Time Spent With Patient Time: Total time managing care of this patient today ____ minutes.
[2025-07-25 15:41] VITALS: BP 116/60; PULSE 62; RESP 18; TEMP 35.9; O2SAT 95
[2025-07-25 16:26] LABS: Glucose, Whole Blood 98 mg/dL (60-115)
== END 2025-07-25 17:58 | disposition home health service (06) | DRG 291 ==
LOC: HO.ED 21:21 → HO.EDOVER 22:26 → HO.IMC 23:35
PROVIDERS: Hospitalist; Internal Medicine; Student in an Organized Health Care Education/Training Program; Admitting Provider Hospitalist; Emergency Provider Emergency Medicine; PCP Nurse Practitioner Family; Visit Provider Internal Medicine
DX: I13.0 Hypertensive heart and chronic kidney disease with heart failure and stage 1 through stage 4 chronic kidney disease, or unspecified chronic kidney disease (principal); I50.33 Acute on chronic diastolic (congestive) heart failure; E66.2 Morbid (severe) obesity with alveolar hypoventilation; N17.9 Acute kidney failure, unspecified; Z68.43 Body mass index [BMI] 50.0-59.9, adult; I48.19 Other persistent atrial fibrillation; J96.11 Chronic respiratory failure with hypoxia; E87.3 Alkalosis; K92.1 Melena; D62 Acute posthemorrhagic anemia; I50.813 Acute on chronic right heart failure; D63.1 Anemia in chronic kidney disease; I35.0 Nonrheumatic aortic (valve) stenosis; E11.22 Type 2 diabetes mellitus with diabetic chronic kidney disease; N18.30 Chronic kidney disease, stage 3 unspecified; Z20.822 Contact with and (suspected) exposure to COVID-19; Z99.81 Dependence on supplemental oxygen; Z71.3 Dietary counseling and surveillance; Z79.899 Other long term (current) drug therapy
CPT/HCPCS: 36415; 71045; 80048; 80053; 82272; 82607; 82746; 82803; 82947; 83540; 83605; 83880; 84145; 84484; 85025; 85027; 86850; 86900; 86901; 86923; 87040; 87637; 93005; 93306; 97110; 97162; 97530; 99285; J0696; J1938; J2470; J7120; P9016

== ENCOUNTER 2025-07-13 22:21 | Outpatient (BNV) | payer MEDICARE, SELFPAY | END 2025-07-14 08:28 | PROVIDERS: Admitting Provider Hospitalist; Emergency Provider Emergency Medicine; PCP Nurse Practitioner Family; Visit Provider Specialist | DX: R06.02 Shortness of breath (principal) | CPT/HCPCS: 71045 ==

== ENCOUNTER 2025-07-13 22:21 | Outpatient (BNV) | payer MEDICARE, SELFPAY | END 2025-07-20 12:00 | PROVIDERS: Admitting Provider Hospitalist; Emergency Provider Emergency Medicine; PCP Nurse Practitioner Family; Visit Provider Internal Medicine Cardiovascular Disease | DX: I27.20 Pulmonary hypertension, unspecified (principal); I51.7 Cardiomegaly; I35.0 Nonrheumatic aortic (valve) stenosis; I36.1 Nonrheumatic tricuspid (valve) insufficiency | CPT/HCPCS: 93306 ==

== ENCOUNTER → 2025-07-13 22:21 | Outpatient (BNV) | payer MEDICARE, SELFPAY | PROVIDERS: Admitting Provider Hospitalist; Emergency Provider Emergency Medicine; PCP Nurse Practitioner Family; Visit Provider Internal Medicine Cardiovascular Disease | DX: I50.30 Unspecified diastolic (congestive) heart failure (principal); I50.810 Right heart failure, unspecified | CPT/HCPCS: 99232 ==

== ENCOUNTER → 2025-07-13 22:21 | Outpatient (BNV) | payer MEDICARE, SELFPAY | PROVIDERS: Admitting Provider Hospitalist; Emergency Provider Emergency Medicine; PCP Nurse Practitioner Family; Visit Provider Student in an Organized Health Care Education/Training Program | DX: I50.30 Unspecified diastolic (congestive) heart failure (principal); I50.810 Right heart failure, unspecified; I50.9 Heart failure, unspecified; R01.1 Cardiac murmur, unspecified; R00.1 Bradycardia, unspecified; I48.19 Other persistent atrial fibrillation; E78.5 Hyperlipidemia, unspecified; K92.1 Melena; N17.9 Acute kidney failure, unspecified; E83.42 Hypomagnesemia; D64.9 Anemia, unspecified; I63.9 Cerebral infarction, unspecified | CPT/HCPCS: 99232 ==

== ENCOUNTER 2025-09-27 09:02 | Outpatient (BNV) | payer MEDICARE, SELFPAY | END 2025-10-03 06:06 | PROVIDERS: Admitting Provider Nurse Practitioner Acute Care; Emergency Provider Emergency Medicine; PCP Nurse Practitioner Family; Visit Provider Radiology Diagnostic Radiology | DX: R07.89 Other chest pain (principal) | CPT/HCPCS: 71045 ==

== ENCOUNTER 2025-09-27 09:02 | Outpatient (BNV) | payer MEDICARE, SELFPAY | END 2025-10-03 05:38 | PROVIDERS: Admitting Provider Nurse Practitioner Acute Care; Emergency Provider Emergency Medicine; PCP Nurse Practitioner Family; Visit Provider Internal Medicine | DX: I48.91 Unspecified atrial fibrillation (principal) | CPT/HCPCS: 93010 ==

== ENCOUNTER 2025-09-27 09:02 | Outpatient (BNV) | payer MEDICARE, SELFPAY | END 2025-09-27 09:35 | PROVIDERS: Admitting Provider Nurse Practitioner Acute Care; Emergency Provider Emergency Medicine; PCP Nurse Practitioner Family; Visit Provider Radiology Diagnostic Radiology | DX: R06.02 Shortness of breath (principal) | CPT/HCPCS: 71045 ==

== ENCOUNTER → 2025-09-27 09:02 | Outpatient (BNV) | payer MEDICARE, SELFPAY | PROVIDERS: Admitting Provider Nurse Practitioner Acute Care; Emergency Provider Emergency Medicine; PCP Nurse Practitioner Family; Visit Provider Nurse Practitioner Acute Care | DX: I50.9 Heart failure, unspecified (principal) | CPT/HCPCS: 99223; 99233 ==

== ENCOUNTER → 2025-09-27 09:02 | Outpatient (BNV) | payer MEDICARE, SELFPAY | PROVIDERS: Admitting Provider Nurse Practitioner Acute Care; Emergency Provider Emergency Medicine; PCP Nurse Practitioner Family; Visit Provider Internal Medicine Cardiovascular Disease | DX: I50.813 Acute on chronic right heart failure (principal); I48.19 Other persistent atrial fibrillation; I35.0 Nonrheumatic aortic (valve) stenosis; K25.9 Gastric ulcer, unspecified as acute or chronic, without hemorrhage or perforation | CPT/HCPCS: 93010; 99222; 99233 ==